=== PATIENT | female | born 1970 | race Caucasian/White ===

== ENCOUNTER 2020-02-07 13:13 | Outpatient (CLI) | payer OTHER, SELFPAY ==
--- NOTE | ~2020-02-07 | MMUS_ITS ---
EXAMINATION: MM screen RT diag LT w maira, US breast LT limited HISTORY: Left breast pain TECHNIQUE: Bilateral 3-D tomosynthesis images were performed and synthetic 2-D images were generated. CAD analysis was submitted and interpreted. High resolution targeted left breast ultrasound at area of complaint of left subareolar breast pain was performed. COMPARISON: 02/26/2015 diagnostic left mammogram and complete left breast ultrasound 02/19/2015 and 04/11/2012 bilateral digital screening mammogram examinations BREAST PARENCHYMAL COMPOSITION: There are scattered areas of fibroglandular density. FINDINGS: MAMMOGRAPHIC FINDINGS: Occasional bilateral benign calcifications. No suspicious mass or architectural distortion, malignant calcification, skin thickening or retraction or significant new or developing density of either [address] is evident. ULTRASOUND: There is a parallel circumscribed sonolucency measuring 5.5 x 4.0 x 6.5 mm, with through transmission and posterior enhancement, compatible with simple cyst in the subareolar area of the left breast. No suspicious mass or shadowing is evident. IMPRESSION: 1. No mammographic evidence of malignancy 2. Routine mammographic screening is recommended BI-RADS Category 2: Benign finding(s). Reviewed, dictated and finalized at location A. IMPRESSION: 1. No mammographic evidence of malignancy 2. Routine mammographic screening is recommended BI-RADS Category 2: Benign finding(s).
== END 2020-02-07 13:14 | disposition home or self-care (01) ==
PROVIDERS: PCP Family Medicine; Visit Provider Obstetrics & Gynecology
DX: N64.4 Mastodynia (principal)
CPT/HCPCS: 76642; 77063; 77065; 77067

== ENCOUNTER 2020-07-03 13:21 | Outpatient (CLI) | payer OTHER, SELFPAY ==
[2020-07-03 13:57] LABS: Basophils Absolute Auto 0.1 K/mm3 (0.0-0.1); Basophils Percent Auto 0.9 % (0.2-1.2); Eosinophils Absolute Auto 0.3 K/mm3 (0-0.3); Eosinophils Percent Auto 4.2 % (0-4.4); Hematocrit 37.9 % (37.0-47.0); Hemoglobin 12.9 g/dL (12.0-15.0); Immature Granulocyte Absolute 0.04 K/mm3 (0.00-0.031); Immature Granulocyte Percent A 0.5 % (0-0.5); Lymphocytes Absolute Auto 1.69 K/mm3 (0.9-3.2); Lymphocytes Percent Auto 22.9 % (18.3-44.2); Mean Corpuscular Hemoglobin 31.2 pg (26-34); Mean Corpuscular Volume 91.8 fl (80-100); Mean Platelet Volume 10.8 fl (7.4-10.4); Monocytes Absolute Auto 0.5 K/mm3 (0.1-0.6); Monocytes Percent Auto 6.4 % (2.6-8.5); Neutrophils Absolute Auto 4.8 K/mm3 (1.3-6.7); Neutrophils Percent Auto 65.1 % (45.5-73.1); Platelet Count Result 219 k/mm3 (150-375); Red Blood Count 4.13 M/mm3 (4.2-5.4); White Blood Count 7.4 K/mm3 (4.5-10.0)
[2020-07-03 14:04] LABS: Hemoglobin A1C 5.8 % (<5.7)
[2020-07-03 14:08] LABS: Alanine Aminotransferase 19 U/L (4-35); Albumin Level 4.4 g/dL (3.5-5.1); Alkaline Phosphatase 53 U/L (38-126); Anion Gap 10 mmol/L (8-16); Aspartate Amino Transferase 24 U/L (14-36); Bilirubin,Total 0.2 mg/dL (0.2-1.3); Blood Urea Nitrogen 14 mg/dL (7-17); Calcium 9.5 mg/dL (8.4-10.2); Carbon Dioxide 28 mmol/L (22-30); Chloride 101 mmol/L (98-107); Cholesterol 237 mg/dL (0-200); Estimated Glomerular Filt Rate > 60; Glucose 141 mg/dL (65-105); HDL Direct 48 mg/dL; Potassium 4.4 mmol/L (3.4-5.0); Sodium 139 mmol/L (137-145); Triglycerides 509 mg/dL (<150); Uric Acid 9.9 mg/dL (2.5-7.5)
[2020-07-03 14:19] LABS: LDL Cholesterol Direct 96 mg/dL
[2020-07-03 14:45] LABS: Creatinine Urine 90.1 mg/dL
[2020-07-03 14:50] LABS: MALB Creatinine Ratio 27.3 mg/g (0-30); Microalbumin Urine Random 24.6 mg/L (0-16.7)
[2020-07-03 15:21] LABS: Free T4 Free Thyroxine 0.84 ng/mL (0.78-2.19); Vitamin D 25 Hydroxy 61.4 ng/mL
== END 2020-07-03 13:22 | disposition home or self-care (01) ==
LOC: ANHLAB 13:23
PROVIDERS: PCP Family Medicine; Visit Provider Family Medicine
DX: Z00.00 Encounter for general adult medical examination without abnormal findings (principal); E78.2 Mixed hyperlipidemia; E11.42 Type 2 diabetes mellitus with diabetic polyneuropathy; R53.83 Other fatigue; I10 Essential (primary) hypertension; E03.9 Hypothyroidism, unspecified; Z13.0 Encounter for screening for diseases of the blood and blood-forming organs and certain disorders involving the immune mechanism; Z13.6 Encounter for screening for cardiovascular disorders; Z13.220 Encounter for screening for lipoid disorders; Z13.29 Encounter for screening for other suspected endocrine disorder; R80.9 Proteinuria, unspecified; E55.9 Vitamin D deficiency, unspecified
CPT/HCPCS: 36415; 80053; 80061; 82043; 82306; 83036; 84439; 84443; 84480; 84481; 84550; 85025

== ENCOUNTER 2020-10-21 12:05 | Outpatient (CLI) | payer OTHER, SELFPAY ==
[2020-10-21 13:03] LABS: Alanine Aminotransferase 23 U/L (4-35); Albumin Level 4.2 g/dL (3.5-5.1); Alkaline Phosphatase 54 U/L (38-126); Anion Gap 7 mmol/L (8-16); Aspartate Amino Transferase 28 U/L (14-36); Bilirubin,Total 0.5 mg/dL (0.2-1.3); Blood Urea Nitrogen 8 mg/dL (7-17); Calcium 9.1 mg/dL (8.4-10.2); Carbon Dioxide 25 mmol/L (22-30); Chloride 108 mmol/L (98-107); Estimated Glomerular Filt Rate > 60; Glucose 118 mg/dL (65-105); Hemoglobin A1C 5.8 % (<5.7); Sodium 140 mmol/L (137-145)
== END 2020-10-21 12:06 | disposition home or self-care (01) ==
LOC: ANHLAB 12:14
PROVIDERS: PCP Family Medicine
DX: E11.65 Type 2 diabetes mellitus with hyperglycemia (principal)
CPT/HCPCS: 36415; 80053; 83036

== ENCOUNTER 2021-02-25 18:39 | Observation (INO) | payer OTHER, SELFPAY ==
--- NOTE | ~2021-02-25 | CT_ITS ---
EXAMINATION: CTA chest PE protocol DATE: 02/25/2021 21:21 INDICATION: Tachypnea, fever, tachycardia and elevated d-dimer. TECHNIQUE: Computed tomography (CT) pulmonary angiogram of the chest was performed with 100 mL Omnipa que-350 intravenous contrast. Additional 3D reconstructions utilizing coronal maximum intensity proje ction (MIP) were performed. Automated exposure control and iterative reconstruction technique were em ployed. The dose-length product was 628.84 mGy-cm. COMPARISON: None FINDINGS: Excellent contrast opacification of the pulmonary arteries. There is mild streak artifact from dense contrast in the superior vena cava and right atrium. Minimal scattered respiratory motion artifact wh ich does not significantly limit evaluation. No pulmonary embolism. Mild atelectasis in the right mid dle lobe and lingula. There are few bilateral small calcified pulmonary nodules which along couple sp lenic calcifications are consistent with old granulomatous disease. 3 additional <4 mm noncalcified n odules in the right upper and bilateral lower lobes. No pneumonia, pulmonary edema or pleural effusio n. Heart size is normal. No pericardial effusion. Small sliding-type hiatal hernia. There is wall thi ckening the distal esophagus which could be related to reflux esophagitis. Thoracic aorta is normal i n caliber with no dissection. Likely benign subcentimeter right thyroid nodule. No pathologically enl arged thoracic lymphadenopathy. Diffuse hepatic steatosis. Partially visualized plate and screw fixat ion for anterior spinal fusion at C6-C7. IMPRESSION: 1. No pulmonary embolism or other acute cardiopulmonary disease. 2. A few <4 mm noncalcified pulmonary nodules. If the patient is low risk for lung cancer, no follow- up is needed. If the patient is high risk (i.e., history of smoking or asbestos or significant radiat ion exposure), optional follow-up chest CT could be considered at 12 months. 3. Small sliding-type hiatal hernia with wall thickening the distal esophagus suggesting possibility of reflux esophagitis. Reviewed, dictated and finalized at location A. IMPRESSION: 1. No pulmonary embolism or other acute cardiopulmonary disease. 2. A few <4 mm noncalcified pulmonary nodules. If the patient is low risk for l tony cancer, no follow-up is needed. If the patient is high risk (i.e., history of smoking or asbestos or significant radiation exposure), optional follow-up c hest CT could be considered at 12 months. 3. Small sliding-type hiatal hernia with wall thickening the distal esophagus s uggesting possibility of reflux esophagitis.
--- NOTE | ~2021-02-25 | CT_ITS ---
EXAMINATION: CT abdomen pelvis wo con DATE: 02/26/2021 13:18 INDICATION: Generalized abdominal pain. Constipation. TECHNIQUE: Computed tomography (CT) of the abdomen and pelvis was performed without intravenous contr ast. Automated exposure control and iterative reconstruction technique were employed. The dose-length product was 1272.11 mGy-cm. COMPARISON: None. FINDINGS: The visualized portions of the lung bases demonstrate mild atelectasis. A calcified right l tony nodule is consistent with old granulomatous disease. No pleural effusion. The heart size is josie l. No pericardial effusion. There is diffuse hepatic steatosis. There are changes of cholecystectomy. Calcifications in the spleen are consistent with old granulomatous disease, consistent with decrease d kidney function. The pancreas and adrenal glands are normal. There are persistent contrast nephrogr ams. There are no dilated loops of bowel. There are changes of appendectomy. There is a small sliding hiatal hernia. There is mild aortocaval and left para-aortic lymphadenopathy. There is a supraumbili daina ventral hernia containing fat. There is an electrode in left S3 neural foramen. There are changes of anterior and posterior fusion procedures from L4 to S1. There is mild lumbar spondylosis. IMPRESSION: 1. Supraumbilical ventral hernia containing fat. 2. Small sliding hiatal hernia. 3. Mild retroperitoneal lymphadenopathy, likely reactive. Reviewed, dictated and finalized at location A.
[2021-02-25 19:00] VITALS: BP 132/71; PULSE 106; RESP 20; TEMP 39.8; O2SAT 100
[2021-02-25] MEDS: ONDANSETRON INJ 4 MG/2 ML VIAL IV PUSH (19:30)
[2021-02-25] MEDS: KETOROLAC 30 MG/ML VIAL (*BKC) IV PUSH (19:30)
[2021-02-25] MEDS: SODIUM CHLORIDE 0.9% IV 1,000 ML 999 ML IV CONT ×2 (19:35→21:25)
[2021-02-25 19:40] LABS: Basophils Absolute Auto 0.03 K/mm3 (0.00-0.10); Basophils Percent Auto 0.3 % (0.0-1.0); Eosinophils Absolute Auto 0.03 K/mm3 (0.02-0.50); Eosinophils Percent Auto 0.3 % (1.0-6.0); Hematocrit 34.5 % (35.0-49.0); Hemoglobin 12.2 g/dL (12.0-15.0); Immature Granulocyte Absolute 0.07 K/mm3 (0.00-0.00); Immature Granulocyte Percent A 0.7 % (0.0-0.0); Lymphocytes Absolute Auto 0.76 K/mm3 (1.10-4.50); Lymphocytes Percent Auto 7.1 % (18.0-42.0); Mean Corpuscular HGB Conc 35.4 g/dL (32.0-36.0); Mean Corpuscular Hemoglobin 32.3 pg (27.0-31.0); Mean Corpuscular Volume 91.3 fL (78.0-102.0); Mean Platelet Volume 11.1 fl (9.2-11.8); Monocytes Absolute Auto 1.01 K/mm3 (0.10-0.90); Monocytes Percent Auto 9.5 % (2.0-11.0); Neutrophils Absolute Auto 8.8 K/mm3 (1.7-7.2); Neutrophils Percent Auto 82.1 % (50.0-70.0); Platelet Count Result 191 K/mm3 (150-420); Red Blood Count 3.78 M/mm3 (4.20-5.40); Red Cell Distribution Width 11.8 % (11.6-14.4); White Blood Count 10.7 K/mm3 (4.8-10.8)
--- NOTE | 2021-02-25 19:52 | ED.GENADULT ---
HPI - General Adult General Chief complaint: Headache Stated complaint: headache, Hot/Cold,body aches,nausea,constipation Source: patient Mode of arrival: ambulatory Limitations: no limitations History of Present Illness HPI narrative: Niles is a 50F with a PMH of bipolar disorder, diabetes, OA, migraines seasonal allergies and multiple surgeries presented to the ED with multiple sympotms. 5 days ago she started having myalgias in her legs and low back. Next she became constipated. Later she started having subjective fevers, chills and a headache. Her daughter took her temp before coming and it was 101 so she came to the ED. She denies any CP, SOB or lower extremity swelling. Related Data Home Medications Medication Instructions Recorded Confirmed dulaglutide 1.5 mg/0.5 mL 1.5 mg SUB-Q WEEKLY 01/30/20 02/25/21 subcutaneous pen injector estradiol 0.87 gram/actuation 1 pump TRANSDERM DAILY 01/30/20 02/25/21 (0.06%) transdermal gel pump fluticasone propionate 50 2 spray NASAL DAILY 01/30/20 02/25/21 mcg/actuation nasal spray,suspension ibuprofen 800 mg tablet 800 mg PO Q6H 01/30/20 02/25/21 Allergies Allergy/AdvReac Type Severity Reaction Status Date / Time prochlorperazine Allergy Intermediate Other Verified 01/30/20 11:18 Review of Systems Constitutional: Constitutional: Reports as per HPI Eyes: Eyes: Reports no additional eye complaints ENT: Reports system reviewed and no additional complaints, except as documented Cardiovascular: Cardiovascular: Reports no additional cardiovascular complaints Respiratory: Respiratory: Reports no additional respiratory complaints Gastrointestinal: Gastrointestinal: Reports constipation, Denies diarrhea, Reports nausea and Denies vomiting Genitourinary: Genitourinary: Reports no additional female genitourinary complaints Musculoskeletal: Musculoskeletal: Reports no additional musculoskeletal complaints Integumentary/Breasts: Skin/Breast: Reports system reviewed and no additional complaints, except as docu Neurologic: Reports system reviewed and no additional complaints, except as documented Psychiatric: Psychiatric: Reports no additional psychiatric complaints Endocrine: Endocrine: Reports no additional endocrine complaints Hematologic/Lymphatic: Hematologic/Lymphatic: Reports no additional hematologic/lymphatic complaints Allergic/Immunologic: Allergic/Immunologic: Reports no additional allergic/immunologic complaints [facility] Family History Family History Other Family history of malignant neoplasm Hypertension Social History Social History Smoking status: Never smoker Exam Const: General: alert; No confusion Orientation/consciousness: patient oriented x3 Limitations: No altered mental status Other: Looks very fatigued HENMT: Head: normal to inspection Other: atraumatic Eyes: Pupils: Equal, round and reactive pupils present Neck: Neck: normal visual inspection Chest: Chest palpation & inspection: normal inspection of the chest Resp: Effort & Inspection: labored, tachypneic and uses accessory muscles Auscultation: clear to auscultation bilaterally Cardio: Rate: tachycardic Rhythm: regular rhythm Heart sounds: no murmurs GI: Inspection: non-distended GI Palp: Yes Soft to palpation, No Tenderness to palpation present (GI) and No Guarding due to palpation present (GI) Skin: General skin exam: normal color Rashes: no rashes Neuro: General: patient oriented x3 and moves all extremities Extrem: General: normal to inspection Psych: Appearance: grossly normal Mental Status: mental status grossly normal Thought content: Yes Normal thought content present Course Course Emergency Course: Given toradol, zofran and fluids for the headache, nausea and aches. Labs showed mild hyponatremia, TANIKA, and a very elevated CRP and
[2021-02-25 19:55] LABS: Alanine Aminotransferase 28 U/L (14-59); Albumin Level 2.9 g/dL (3.4-5.0); Alkaline Phosphatase 61 U/L (46-116); Anion Gap 11 mmol/L (8-16); Aspartate Amino Transferase 18 U/L (15-37); Bilirubin,Total 0.5 mg/dL (0.00-1.00); Blood Urea Nitrogen 15 mg/dL (7-18); Calcium 8.9 mg/dL (8.5-10.1); Carbon Dioxide 25 mmol/L (21-32); Chloride 95 mmol/L (98-108); Creatine Kinase 33 U/L (26-192); Estimated Glomerular Filt Rate 33; Glucose 125 mg/dL (70-99); Osmolality Calculated 273 mOsm/kg (285-295); Potassium 3.9 mmol/L (3.5-5.1); Sodium 131 mmol/L (136-145); Total Protein 6.9 g/dL (6.4-8.2)
[2021-02-25 19:56] LABS: CRP > 25.0 mg/dL (0.0-0.9)
[2021-02-25 20:04] LABS: Monoscreen Negative (Negative); Negative Monotest Control Negative (Negative); Positive Monotest Control Positive (Positive)
[2021-02-25 20:23] LABS: Influenza Control Valid (Valid)
[2021-02-25 20:28] LABS: SARS-CoV-2 RNA PCR Negative (Negative)
[2021-02-25 21:00] VITALS: TEMP 39
[2021-02-25 21:03] LABS: Appearance Urine Sl Cloudy (Clear); Bilirubin Urine Negative (Negative); Blood Urine 1+ (Negative); Glucose Urine UA Negative (Negative); Ketones Urine Negative (Negative); Leukocyte Esterase Ur 2+ (Negative); Nitrate Urine Negative (Negative); Protein Urine 2+ (Negative); Specific Grav Ur 1.015 (1.010-1.020); Urobilinogen Urine 0.2 mg/dL (0.2-1.0)
[2021-02-25 21:10] LABS: Add Urine Microscopic? YES; Bacteria Urine 1+ /hpf; Color Urine Yellow (Yellow); Squamous Epithelial Cell Urine Few /hpf (Few); WBC Urine 21-30 /hpf (0-3)
[2021-02-25 21:14] VITALS: BP 98/53; PULSE 91; RESP 20; TEMP 39; O2SAT 97
[2021-02-25 21:57] VITALS: PULSE 72; O2SAT 97
[2021-02-25 22:19] VITALS: BP 91/61; PULSE 97; RESP 20; TEMP 39; O2SAT 97
[2021-02-25 23:12] VITALS: BMI 37.0
--- NOTE | 2021-02-25 23:24 | PC.NURSE ---
Patient arrived to floor from ER at 2230. Patient A/O x4. Ambulates independently. Denies any c/o pain at this time. IV present to RAC. Telemetry on and NSR.
[2021-02-26] VITALS (17 sets, daily range): BP systolic 92–148; BP diastolic 55–89; PULSE 84–113; RESP 16–22; TEMP 36.6–39.6; O2SAT 97–99
--- NOTE | 2021-02-26 00:17 | PC.NURSE ---
Dr. Rojas notified of pt's request for a sleeping pill to help her rest; Dr. Rojas was notifed of pt's request and a new order was received and noted.
[2021-02-26] MEDS: ZOLPIDEM TARTRATE (*CRX) 5 MG TABLET PO (00:38)
--- NOTE | 2021-02-26 01:01 | PC.NURSE ---
Dr. Rojas called and said he wanted pt's blood pressure checked now and again in 30 minutes and to report results to him.
--- NOTE | 2021-02-26 01:10 | PC.NURSE ---
Pt's blood pressure was checked and it was 106/62; Results reported to Dr. Rojas and he gave orders to check pt's blood pressure hourly and to call him if patient's blood pressure is below 90/60.
[2021-02-26] MEDS: SODIUM CHLORIDE 0.9% IV 1,000 ML 150 ML IV CONT ×2 (01:21→13:54)
--- NOTE | 2021-02-26 01:40 | PC.NURSE ---
No c/o pain voiced from patient. Resting at this time. Monitoring VS-BP per MD new orders. Fluids started, NS at 150ml/hr.
--- NOTE | 2021-02-26 02:01 | PC.NURSE ---
Patients BP checked, 148/89. Afebrile-98.1.
[2021-02-26] MEDS: ACETAMINOPHEN 325 MG TABLET 650 MG PO ×4 (02:55→21:01)
--- NOTE | 2021-02-26 03:01 | PC.NURSE ---
Patient shivering BP taken- 124/74 HR 113 T-103.2. PRN tylenol given. Monitoring. coal hauler notified. Continues with IV fluids.
[2021-02-26 05:32] LABS: Basophils Absolute Auto 0.03 K/mm3 (0.00-0.10); Basophils Percent Auto 0.4 % (0.0-1.0); Eosinophils Absolute Auto 0.09 K/mm3 (0.02-0.50); Eosinophils Percent Auto 1.1 % (1.0-6.0); Hematocrit 29.4 % (35.0-49.0); Hemoglobin 10.3 g/dL (12.0-15.0); Immature Granulocyte Absolute 0.05 K/mm3 (0.00-0.00); Immature Granulocyte Percent A 0.6 % (0.0-0.0); Lymphocytes Absolute Auto 0.56 K/mm3 (1.10-4.50); Lymphocytes Percent Auto 6.6 % (18.0-42.0); Mean Corpuscular Volume 91.3 fL (78.0-102.0); Monocytes Absolute Auto 0.92 K/mm3 (0.10-0.90); Monocytes Percent Auto 10.9 % (2.0-11.0); Neutrophils Absolute Auto 6.8 K/mm3 (1.7-7.2); Neutrophils Percent Auto 80.4 % (50.0-70.0); Platelet Count Result 152 K/mm3 (150-420); Red Blood Count 3.22 M/mm3 (4.20-5.40); Red Cell Distribution Width 11.9 % (11.6-14.4); White Blood Count 8.4 K/mm3 (4.8-10.8)
[2021-02-26 05:46] LABS: Alanine Aminotransferase 27 U/L (14-59); Albumin Level 2.3 g/dL (3.4-5.0); Alkaline Phosphatase 62 U/L (46-116); Anion Gap 11 mmol/L (8-16); Aspartate Amino Transferase 25 U/L (15-37); Bilirubin,Total 0.4 mg/dL (0.00-1.00); Blood Urea Nitrogen 19 mg/dL (7-18); Calcium 7.6 mg/dL (8.5-10.1); Carbon Dioxide 24 mmol/L (21-32); Chloride 98 mmol/L (98-108); Estimated CRCL calculation 41 ml/min; Estimated Glomerular Filt Rate 29; Glucose 102 mg/dL (70-99); Osmolality Calculated 278 mOsm/kg (285-295); Potassium 3.4 mmol/L (3.5-5.1); Sodium 133 mmol/L (136-145); Total Protein 5.7 g/dL (6.4-8.2)
[2021-02-26] MEDS: ENOXAPARIN 40 MG/0.4 ML SYRINGE SUB-Q (08:00)
--- NOTE | 2021-02-26 10:20 | PM.IMHP ---
H&P: HPI History of Present Illness Date/Time: 02/26/21 10:20 Pt is being placed in observation for Body aches with Fever and UTI. She will be getting IV Ab. Niles Croft is a 50 year old female who comes in with body aches, fever, chills. Pt states that she went for a long walk 5 days ago that lasted about 2 hours. After this she started feeling her body aching. Pt states she does not walk for this long. She states she has not had a BM since 5 days ago as well and her abdomen is tender only to touch. She also stated that she would be shaking very bad at times. She admits to being a bit nauseated without vomiting. Negative for COVID, Flu, [place]. When I started asking Pt what brought her to the hospital she stated we came because of the above items. I asked her what she meant by we and she stated her and her imaginary friend who is a non-binary elephant named Branden. I began to ask her about psych issues and she stated she did not want to tell me because I would write them down. She denied multiple personalities. She did admit to being Bipolar and has not taken any medication for many years. Stating she was taken off of those medications. Chief Complaint: Body Aches, GUAN, Fever, Chills Review of Systems Review of Systems: All systems reviewed & are unremarkable except as noted in HPI and below PMFSH Past Medical History Medical History (Updated 02/26/21 @ 14:30 by DANIELLE Perez) Bipolar 1 disorder Diabetes Migraine Surgical History Surgical History (Updated 02/26/21 @ 12:26 by DANIELLE Perez) H/O: hysterectomy Family History Family History Other Family history of malignant neoplasm Hypertension Social History Social History Smoking status: Former smoker Tobacco type: cigarettes Second hand tobacco smoke exposure: No Alcohol intake: current Drinks per week: 1 Substance use: current Substance use type: prescription drug and other Other substance usage details: medical marijuana Gender identity (if verbalized by the patient): Female Spiritual care concerns: No Meds Home Medications and Allergies Home Medications Medication Instructions Recorded Confirmed Type dulaglutide 1.5 mg/0.5 mL 1.5 mg SUB-Q WEEKLY 01/30/20 02/25/21 History subcutaneous pen injector estradiol 0.87 gram/actuation 1 pump TRANSDERM DAILY 01/30/20 02/25/21 History (0.06%) transdermal gel pump fluticasone propionate 50 2 spray NASAL DAILY 01/30/20 02/25/21 History mcg/actuation nasal spray,suspension ibuprofen 800 mg tablet 800 mg PO Q6H 01/30/20 02/25/21 History Allergies Allergy/AdvReac Type Severity Reaction Status Date / Time prochlorperazine Allergy Intermediate Other Verified 01/30/20 11:18 Vital Signs Vital Signs - 24 hr 02/25/21 19:00 02/25/21 21:00 02/25/21 21:14 Temperature 103.7 F H 102.2 F H 102.2 F H Pulse Rate 106 H 91 Respiratory Rate 20 20 Blood Pressure 132/71 98/53 L Pulse Oximetry 100 97 02/25/21 21:57 02/25/21 22:19 02/26/21 00:00 Temperature 102.2 F H 97.8 F Pulse Rate 72 97 91 Respiratory Rate 20 18 Blood Pressure 91/61 L 113/58 L Pulse Oximetry 97 97 97 02/26/21 01:18 02/26/21 02:00 02/26/21 02:55 Temperature 98.1 F 103.2 F H Pulse Rate 100 Respiratory Rate Blood Pressure 106/62 148/89 H Pulse Oximetry 97 02/26/21 03:02 02/26/21 04:00 02/26/21 04:55 Temperature 103.2 F H 103.0 F H 103.0 F H Pulse Rate 113 H 105 H Respiratory Rate 22 H Blood Pressure 124/74 109/72 Pulse Oximetry 02/26/21 05:29 02/26/21 06:45 02/26/21 07:33 Temperature 101.0 F H 98.2 F 98.0 F Pulse Rate 95 105 H 84 Respiratory Rate 18 Blood Pressure 102/66 93/58 L 92/62 L Pulse Oximetry 99 Exam Const: General: cooperative, healthy appearing, comfortable, no acute distress, alert, awake and Physically active N
--- NOTE | 2021-02-26 14:49 | PC.NURSE ---
Patient continues to have fluctuations with low grade temps and c/o migraines. 18g IV to RUE infiltrated and replaced w/20g in Rt. AC. Patient does c/o of chills when temp increases.
[2021-02-26] MEDS: SUMAtriptan SUCCINATE 25 MG TABLET 50 MG PO (16:12)
--- NOTE | 2021-02-26 18:40 | PC.NURSE ---
CONTINUOUS IVF DISCONTINUED. IV SITE WNL, FLUSHED AND SECURE.
--- NOTE | 2021-02-26 23:18 | PC.NURSE ---
PT called this nurse to room approx 2100 for symptoms of fever. Temp 100.8 axillary, PRN tylenol 650mg given. UPdate 2299: Pt called this nurse to room for c/o fever, chills, diaphoretic. Temp decreased to 100.4 axillary, pt continues c/o fever like symptoms. Air temp in room turned down, cold wash clothes provided, pt refused. Will continue to monitor for elevated temp.
[2021-02-27] VITALS: BP 100/66; PULSE 91; RESP 20; TEMP 37.6; O2SAT 99
[2021-02-27 01:02] VITALS: TEMP 37
[2021-02-27] MEDS: ACETAMINOPHEN 325 MG TABLET 650 MG PO ×2 (01:02→08:09)
[2021-02-27 02:02] VITALS: TEMP 36.9
[2021-02-27] MEDS: HYDROcodone/acetaminophen (*CRX) 5-325 MG TABLET 1 TAB PO (04:32)
[2021-02-27 06:20] VITALS: TEMP 37.5
--- NOTE | 2021-02-27 06:34 | PC.NURSE ---
Dr. Reyes notified of pt's c/o a migrane headache and her request for Imitrex. New orders received and noted.
[2021-02-27] MEDS: SUMAtriptan SUCCINATE 25 MG TABLET 50 MG PO (06:43)
[2021-02-27 08:00] VITALS: BP 123/61; PULSE 89; RESP 18; TEMP 37.4; O2SAT 100
[2021-02-27 08:09] VITALS: TEMP 37.4
[2021-02-27] MEDS: ENOXAPARIN 40 MG/0.4 ML SYRINGE SUB-Q (08:12)
[2021-02-27] MEDS: FLUTICASONE PROPIONATE 0.05% NA SPR 16 GM BTL (*BKC) 2 SPRAY NASAL (08:15)
--- NOTE | 2021-02-27 09:38 | PC.NURSE ---
Patient up ad fela, awake and alert in room. Low grade fever (99.3 temporal) cont. C/O chills and migraine w/no noticeable S/S noted at this time.
[2021-02-27 10:44] LABS: Hematocrit 29.2 % (35.0-49.0); Hemoglobin 10.2 g/dL (12.0-15.0); Mean Corpuscular HGB Conc 34.9 g/dL (32.0-36.0); Mean Corpuscular Volume 91.5 fL (78.0-102.0); Mean Platelet Volume 11.2 fl (9.2-11.8); Platelet Count Result 167 K/mm3 (150-420); Red Blood Count 3.19 M/mm3 (4.20-5.40); White Blood Count 6.2 K/mm3 (4.8-10.8)
[2021-02-27 10:52] LABS: Anion Gap 11 mmol/L (8-16); Blood Urea Nitrogen 12 mg/dL (7-18); Calcium 8.5 mg/dL (8.5-10.1); Carbon Dioxide 24 mmol/L (21-32); Chloride 101 mmol/L (98-108); Estimated CRCL calculation 52 ml/min; Estimated Glomerular Filt Rate 38; Glucose 173 mg/dL (70-99); Osmolality Calculated 285 mOsm/kg (285-295); Potassium 3.8 mmol/L (3.5-5.1); Sodium 136 mmol/L (136-145)
--- NOTE | 2021-02-27 11:52 | PM.DS ---
DS: Admitting Diagnosis Admitting Diagnosis Admitting Diagnosis: Sepsis, UTI <Fernando CarltonISAK JuarezN-C - Last Filed: 02/27/21 12:22> DS: Discharge Diagnosis Discharge Diagnosis (1) Sepsis: Code(s): A41.9 - Sepsis, unspecified organism <Fernando Ware Fransisco F[employer]ER BR[employer] WORKER-C - Last Filed: 02/27/21 12:22> Status: Acute <Fernando Ware DERICK Moody-C - Last Filed: 02/27/21 12:22> Assessment and Plan: WBC 8.4, RR 22 when Pt was in ER now WNL and on RA, Pt was tachycardic in the ER at 100-110s now 90s and regular, BP did become soft in the 90s systolic, last BP 111 systolic, Temp in the ER 103`F given Tylenol and now WNL, No lactic acid, Urine looks positive for UTI which is likely the source and given Rocephin, Pt given 2 L NS in ER with 150/hour thereafter, blood and urine Cx pending 02/27/2021 WBC 6.2, continues on RA, BP improved 123/61, low grade temp 99.5`F, renal function improving, will order PO Ab on DC for UTI <Fernando CarltonSirisha Moody APN-C - Last Filed: 02/27/21 12:22> (2) UTI (urinary tract infection): Code(s): N39.0 - Urinary tract infection, site not specified <Fernando CarltonISAK JuarezN-C - Last Filed: 02/27/21 12:22> Status: Acute <Fernando CarltonISAK JuarezN-C - Last Filed: 02/27/21 12:22> Assessment and Plan: Culture Pending, Rocephin started, IVF NS 100/h, taking PO fluids well 02/27/2021 will DC with Bactrim DS. Urine Cx pending <Fernando BiankaSirisha Moody APN-C - Last Filed: 02/27/21 12:22> (3) Acute renal injury: Code(s): N17.9 - Acute kidney failure, unspecified <Fernando BiankaISAK JuarezN-C - Last Filed: 02/27/21 12:22> Status: Acute <Fernando Moody [employer] WORKER-C - Last Filed: 02/27/21 12:22> Assessment and Plan: Pt given 2 L NS bolus in ER with 150/h on the floor, monitoring renal function, BUN 19, Cr, 1.83, eCrCl 41, eGFR 29 02/27/2021 BUN 12, Cr 1.45, eCrCl 52, eGFR 38, Pt encouraged to drink plenty of water. <Fernando Moody FULLER BRUSH WORKERAnnikaRafael - Last Filed: 02/27/21 12:22> (4) Abdominal tenderness, generalized: Code(s): R10.817 - Generalized abdominal tenderness <Fernando MoodyDERICK-C - Last Filed: 02/27/21 12:22> Status: Acute <ISAK PerezNAnnikaC - Last Filed: 02/27/21 12:22> Assessment and Plan: Generalized tenderness, Pt states no BM in 5 days, will CT abdomen, Pt has Tylenol, [place], Morphine ordered per pain level 02/27/2021 No complaints of abdominal pain today <Fernando Moody FULLER BRUSH WORKERAnnikaC - Last Filed: 02/27/21 12:22> (5) Elevated d-dimer: Code(s): R79.89 - Other specified abnormal findings of blood chemistry <Fernando Moody FULLER BRUSH WORKERAnnikaC - Last Filed: 02/27/21 12:22> Status: Acute <Fernando Moody FULLER BRUSH WORKERAnnikaC - Last Filed: 02/27/21 12:22> Assessment and Plan: CTA negative for PE, reported to have a few <4mm nodules and may need f/u scan, D-Dimer was 4.4 <Fernando Moody FULLER BRUSH WORKERAnnikaC - Last Filed: 02/27/21 12:22> (6) Diabetes: Code(s): E11.9 - Type 2 diabetes mellitus without complications <Fernando MoodyRACHEALC - Last Filed: 02/27/21 12:22> Status: Acute <Fernando MoodyDERICKAnnikaC - Last Filed: 02/27/21 12:22> Assessment and Plan: Pt will have her Trulicity brought in from home, ordered diabetic diet however Pt states she eats a regular diet, here A1C from Oct 2020 was 5.8 02/27/2021 Pt to be DC'ed on her usual regimen <DANIELLE Perez - Last Filed: 02/27/21 12:22> (7) Bipolar 1 disorder: Code(s): F31.9 - Bipolar disorder, unspecified <DANIELLE Perez - Last Filed: 02/27/21 12:22> Status: Acute <DANIELLE Perez - Last Filed: 02/27/21 12:22> Assessment and Plan: Monitor Pt for stability / polarity, Pt does not currently take anything, she does have an imaginary friend who is a non-binary elephant named Branden 02/27/2021 Pt to f/u with PCP <DANIELLE Perez - Last Filed: 02/27/21 12:22> (8) H/O: hysterectomy: Code(s):
--- NOTE | 2021-02-27 13:05 | PC.NURSE ---
Patient discharged home with all personal belongings packed by patient and taken with at discharge. Discharge instructions given and patient acknowledged understanding of instructions. IV access discontinued and removed from Rt. AC prior to discharge. Patient refused WC and walked to main entrance escorted by staff and left in personal vehicle per self driving.
--- NOTE | 2021-03-02 13:54 | PC.NURSE ---
Pt states she received and understood her discharge instructions. Pt upset that Dr. Reyes wouldn't talk to her, boring machine set up operator her any results, boring machine set up operator her any tylenol for her fever and wouldn't change her diet order.
== END 2021-02-27 13:05 | disposition home or self-care (01) ==
LOC: CHSED 18:41 → CHS2ND 22:02
PROVIDERS: Nurse Practitioner Family; Admitting Provider Family Medicine; Emergency Provider Family Medicine; PCP Family Medicine; Visit Provider Family Medicine
DX: A41.9 Sepsis, unspecified organism (principal); N39.0 Urinary tract infection, site not specified; N17.9 Acute kidney failure, unspecified; E11.9 Type 2 diabetes mellitus without complications; M19.90 Unspecified osteoarthritis, unspecified site; R79.89 Other specified abnormal findings of blood chemistry; G43.909 Migraine, unspecified, not intractable, without status migrainosus; Z20.822 Contact with and (suspected) exposure to COVID-19; F31.9 Bipolar disorder, unspecified; Z87.891 Personal history of nicotine dependence; Z90.710 Acquired absence of both cervix and uterus
CPT/HCPCS: 36415; 71275; 74176; 80048; 80053; 81001; 82550; 85025; 85027; 85380; 86140; 86308; 87040; 87077; 87086; 87088; 87186; 87804; 96361; 96365; 96372; 96375; 99285; A9270; C9803; G0378; J0696; J1650; J1885; J2405; J7030; Q9967; U0003; U0005

== ENCOUNTER 2021-11-05 17:19 | Emergency (ER) | payer OTHER, SELFPAY ==
[2021-11-05 17:30] VITALS: BP 112/75; PULSE 86; RESP 20; TEMP 37.2; O2SAT 98
--- NOTE | 2021-11-05 17:56 | ED.EXTPRO ---
HPI - Extremity Problem General Chief complaint: Extremity Problem,Nontraumatic Stated complaint: hand pain Source: patient Mode of arrival: ambulatory Limitations: no limitations History of Present Illness HPI Narrative: this is a 51-year-old female with history of chronic back neck pain, currently here in the ER with wrist pain with no known injuries does have tenderness with movement with no warmth with a strong brisk radial pulse on the right, she does have tenderness with some flexion of her her right wrist. No fever chills and no known injuries. Complaint: extremity pain Onset (ago): week(s) Pain Consistency: intermittent Location: right Severity scale (1-10): 8 Quality: aching Radiation: distal Relieving factors: immobilization Exacerbating factors: range of motion Related Data Home Medications Medication Instructions Recorded Confirmed dulaglutide 1.5 mg/0.5 mL 1.5 mg SUB-Q WEEKLY 01/30/20 11/05/21 subcutaneous pen injector estradiol 0.87 gram/actuation 1 pump TRANSDERM DAILY 01/30/20 11/05/21 (0.06%) transdermal gel pump fluticasone propionate 50 2 spray NASAL DAILY 01/30/20 11/05/21 mcg/actuation nasal spray,suspension ibuprofen 800 mg tablet 800 mg PO Q6H 01/30/20 11/05/21 Allergies Allergy/AdvReac Type Severity Reaction Status Date / Time prochlorperazine Allergy Intermediate Other Verified 01/30/20 11:18 Review of Systems Review of Systems: All systems reviewed & are unremarkable except as noted in HPI and below PMFSH Past Medical History Medical History Bipolar 1 disorder Diabetes Migraine Surgical History Surgical History H/O: hysterectomy Family History Family History Other Family history of malignant neoplasm Hypertension Social History Social History Smoking status: Former smoker Tobacco type: cigarettes Second hand tobacco smoke exposure: No Alcohol intake: current Drinks per week: 1 Substance use: current Substance use type: prescription drug and other Other substance usage details: medical marijuana Gender identity (if verbalized by the patient): Female Spiritual care concerns: No Exam Const: General: no acute distress Orientation/consciousness: patient oriented x3 HENMT: Head: normal to inspection Eyes: Conjunctivae: conjunctivae normal Pupils: Equal, round and reactive pupils present Neck: Neck: normal visual inspection, no lymphadenopathy and no meningeal signs Chest: Chest palpation & inspection: normal inspection of the chest Resp: Effort & Inspection: normal respiratory effort Cardio: Rate: regular rate Rhythm: regular rhythm GI: GI Palp: Yes Soft to palpation : General: Yes no CVA tenderness Urinary Catheter: Urinary Catheter: patent and draining Skin: General skin exam: normal color Rashes: no rashes Neuro: General: patient oriented x3, moves all extremities, no meningeal signs and no focal motor deficits Extrem: Other: Patient with some right wrist pain with a positive tineal test and positive Phalen test Psych: Mental Status: mental status grossly normal Affect: normal affect Course Course Emergency Course: patient received IM injection of Depo-Medrol 80mg, advised that she would need to wear wrist splint and possibly have nerve conduction study performed as well as an MRI of her right wrist. Given the fact that she is prescribed p.o. steroids advised to take only Tylenol as needed along with her steroid regimen. Critical Care Time Critical Care Time Critical Care Time: No Discharge Plan Discharge Clinical Impression: Acute carpal tunnel syndrome of right wrist Patient Disposition: Home, Self-Care Condition: Stable Instructions: Antibiotic Form, Paresthesia (ED
[2021-11-05] MEDS: methylPREDNISolone ACETATE 40 MG/ML VIAL 80 MG IM (18:13)
[2021-11-05 18:22] VITALS: BP 112/75; PULSE 87; RESP 20; TEMP 37.1; O2SAT 98
== END 2021-11-05 18:29 | disposition home or self-care (01) ==
PROVIDERS: Emergency Provider Emergency Medicine; PCP Family Medicine
DX: G56.01 Carpal tunnel syndrome, right upper limb (principal)
CPT/HCPCS: 96372; 99283; J1030

== ENCOUNTER 2021-11-19 14:14 | Outpatient (CLI) | payer OTHER, SELFPAY ==
[2021-11-19 14:42] LABS: Creatinine Urine 72.26 mg/dL (40-278); MALB Creatinine Ratio 27.2 mg/g (0-30); Microalbumin Urine Random 19.7 mg/L
[2021-11-19 14:44] LABS: Hemoglobin A1C 6.2 % (<5.7)
== END 2021-11-19 14:15 | disposition home or self-care (01) ==
LOC: CHSLAB 14:19
DX: E11.65 Type 2 diabetes mellitus with hyperglycemia (principal)
CPT/HCPCS: 36415; 82043; 83036

== ENCOUNTER 2021-12-04 14:18 | Outpatient (CLI) | payer OTHER, SELFPAY ==
--- NOTE | ~2021-12-04 | XR_ITS ---
XR hand LT 2V DATE: 12/04/2021 14:41 INDICATION: Second digit pain, proximal interphalangeal joint TECHNIQUE: AP and lateral views COMPARISON: None FINDINGS: There is mild osteoarthritic change involving some interphalangeal joints. No fracture, dislocation, periosteal reaction or bone destruction, erosive change or chondral calcino sis. IMPRESSION: Mild osteoarthritis Reviewed, dictated and finalized at location A. IMPRESSION: Mild osteoarthritis
== END 2021-12-04 14:19 | disposition home or self-care (01) ==
LOC: CHSIMG 14:21
PROVIDERS: PCP Nurse Practitioner Family
DX: M79.642 Pain in left hand (principal)
CPT/HCPCS: 73120

== ENCOUNTER 2021-12-10 11:51 | Outpatient (CLI) | payer OTHER, SELFPAY ==
--- NOTE | ~2021-12-10 | DEXA_ITS ---
Bone Density Report Name: IZABELA PARRA Age: 51 Sex: Female Ethnicity: White Date of : 1970 Indication: postmenopausal; screening for osteoporosis; height loss; prior fracture; hysterectomy; Referring Provider: EMERY, JULIO Morejon Study: Bone densitometry was performed. Exam Date: December 10, 2021 Accession number: [id number] Bone Density: Region BMD T-score Z-score Classification Femoral Neck (Left) 0.992 1.3 2.2 Normal Total Hip (Left) 1.088 1.2 1.8 Normal Femoral Neck (Right) 0.904 0.5 1.5 Normal Total Hip (Right) 1.073 1.1 1.7 Normal Femoral Neck Mean 0.948 0.9 1.9 Normal Total Hip Mean 1.081 1.1 1.7 Normal World Health Organization criteria for BMD impression classify patients as: Normal (T-score at or above -1.0), Osteopenia (T-score between -1.0 and -2.5), or Osteoporosis (T-score at or below -2.5). 10-year Fracture Risk: FRAX not reported because: All T-scores for Spine Total, Hip Total, Femoral Neck at or above -1.0 Prior hip or vertebral fracture Clinical Information Provided by Patient: Have had a previous hip or vertebral fracture Has had a low trauma fracture Has used the following medications: Vitamin D, Calcium Has the following medical conditions: Hysterectomy Patient maximum height was 68 Menopause Age: 26 Drinks caffeinated beverages Onset of menses at age 9 Number of children 3 Missed period for more than 6 months in a row Impression: The patient has normal bone mass. The patient has risk factors, including: previous fracture. Discussion: INCREASED RISK OF FRACTURE DUE TO HISTORY OF FRACTURE. The patient's previous fracture puts the patient at high risk of a future fracture. In untreated patients, the risk of osteoporotic fracture increases approximately two-fold for each 1.0 SD decrease in T-score. Low bone density is not the only risk factor for fracture; also consider factors such as patient's age, frailty or poor health, risk of falling, risk of injury, previous osteoporotic fracture, family history of osteoporosis, cigarette smoking, low body weight, etc. Not everyone with a low trauma fracture has osteoporosis; osteomalacia and other metabolic bone disorders should also be considered. Patients who have osteoporosis should be evaluated for specific diseases and conditions (secondary causes) that may cause or contribute to bone loss and fracture risk. National Osteoporosis Foundation (NOF) recommends pharmacologic intervention for patients with a prior hip or vertebral fracture regardless of BMD T-score. The patient should follow a healthful lifestyle (good nutrition with adequate calcium and vitamin D, and appropriate weight-bearing exercise). Follow-Up: Consider a repeat BMD and Vertebral Fracture Assessment (VFA) exam in 2 years or sooner if medical
--- NOTE | ~2021-12-10 | MM_ITS ---
EXAMINATION: MM screening bea BI w maira HISTORY: Screening mammogram TECHNIQUE: Craniocaudal and mediolateral oblique 3-D tomosynthesis images were obtained and synthetic 2-D images were generated. CAD analysis was submitted and interpreted. COMPARISON: 02/07/2020 limited left breast ultrasound examination 02/26/2015 diagnostic left mammogram and complete left breast ultrasound 02/19/2015 bilateral screening mammogram BREAST PARENCHYMAL COMPOSITION: There are scattered areas of fibroglandular density. FINDINGS: Occasional benign calcifications. There is no evidence of suspicious mass, calcification, o r architectural distortion to suggest malignancy in either breast. There has been no suspicious inter edita change. IMPRESSION: 1. No mammographic evidence of malignancy. 2. Recommend routine screening mammography in one year. BI-RADS Category 2: Benign finding(s). Reviewed, dictated and finalized at location A.
== END 2021-12-10 11:52 | disposition home or self-care (01) ==
LOC: CHSIMG 11:52
PROVIDERS: PCP Nurse Practitioner Family; Visit Provider Nurse Practitioner Family
DX: Z12.31 Encounter for screening mammogram for malignant neoplasm of breast (principal); Z78.0 Asymptomatic menopausal state; Z13.820 Encounter for screening for osteoporosis; M81.0 Age-related osteoporosis without current pathological fracture
CPT/HCPCS: 77063; 77067; 77080

== ENCOUNTER 2022-01-20 15:21 | Outpatient (CLI) | payer OTHER, SELFPAY ==
--- NOTE | ~2022-01-20 | XR_ITS ---
EXAMINATION: XR chest 2V Exam Date/Time: 01/20/2022 15:50 CDT CLINICAL HISTORY: Hiatal hernia, diabetes mellitus, preop. Comparison: 12/27/18. RESULT: Lines, tubes, and devices: None. Lungs and pleura: Clear. Cardiomediastinal silhouette: Stable cardiomediastinal silhouette. Other: No acute osseous or upper abdominal finding. IMPRESSION: No acute cardiopulmonary process Reviewed, dictated and finalized at location K.
[2022-01-20 15:52] LABS: Basophils Absolute Auto 0.05 K/mm3 (0.00-0.10); Basophils Percent Auto 0.6 % (0.0-1.0); Eosinophils Absolute Auto 0.15 K/mm3 (0.02-0.50); Eosinophils Percent Auto 1.7 % (1.0-6.0); Hematocrit 39.3 % (35.0-49.0); Hemoglobin 13.8 g/dL (12.0-15.0); Immature Granulocyte Absolute 0.13 K/mm3 (0.00-0.00); Immature Granulocyte Percent A 1.5 % (0.0-0.0); Lymphocytes Absolute Auto 2.29 K/mm3 (1.10-4.50); Lymphocytes Percent Auto 25.6 % (18.0-42.0); Mean Corpuscular HGB Conc 35.1 g/dL (32.0-36.0); Mean Corpuscular Hemoglobin 31.9 pg (27.0-31.0); Mean Platelet Volume 11.2 fl (9.2-11.8); Monocytes Absolute Auto 0.48 K/mm3 (0.10-0.90); Monocytes Percent Auto 5.4 % (2.0-11.0); Neutrophils Absolute Auto 5.8 K/mm3 (1.7-7.2); Neutrophils Percent Auto 65.2 % (50.0-70.0); Platelet Count Result 234 K/mm3 (150-420); Red Blood Count 4.32 M/mm3 (4.20-5.40); Red Cell Distribution Width 11.9 % (11.6-14.4); White Blood Count 8.9 K/mm3 (4.8-10.8)
[2022-01-20 16:19] LABS: Alanine Aminotransferase 28 U/L (14-59); Albumin Level 3.6 g/dL (3.4-5.0); Alkaline Phosphatase 69 U/L (46-116); Anion Gap 10 mmol/L (8-16); Aspartate Amino Transferase 24 U/L (15-37); Bilirubin,Total 0.2 mg/dL (0.00-1.00); Blood Urea Nitrogen 9 mg/dL (7-18); Calcium 8.7 mg/dL (8.5-10.1); Carbon Dioxide 25 mmol/L (21-32); Chloride 103 mmol/L (98-108); Cholesterol 265 mg/dL (0-200); Estimated Glomerular Filt Rate 53; Glucose 106 mg/dL (70-99); HDL Direct 39 mg/dL (40-60); LDL Cholesterol Calculated 138 mg/dL (<130); Magnesium 1.7 mg/dL (1.8-2.4); Osmolality Calculated 284 mOsm/kg (285-295); Sodium 138 mmol/L (136-145); Thyroid Stimulating Hormone 1.85 uIU/mL (0.36-3.74); Total Protein 6.7 g/dL (6.4-8.2); Triglycerides 438 mg/dL (0-150)
[2022-01-20 16:37] LABS: LDL Cholesterol Direct 137 mg/dL (0-130)
== END 2022-01-20 15:22 | disposition home or self-care (01) ==
LOC: CHSLAB 15:25
PROVIDERS: PCP Nurse Practitioner Family; Visit Provider Internal Medicine Cardiovascular Disease
DX: R07.89 Other chest pain (principal); R06.09 Other forms of dyspnea; E78.2 Mixed hyperlipidemia; I10 Essential (primary) hypertension; Z01.818 Encounter for other preprocedural examination
CPT/HCPCS: 36415; 71046; 80053; 80061; 83721; 83735; 84443; 85025

== ENCOUNTER 2022-02-01 14:14 | Outpatient (CLI) | payer OTHER, SELFPAY ==
--- NOTE | ~2022-02-01 | CT_ITS ---
EXAMINATION: CT lumbar spine wo con DATE: 02/01/2022 15:05 INDICATION: Chronic low back pain. TECHNIQUE: Computed tomography (CT) of the lumbar spine was performed without intravenous contrast. A utomated exposure control and iterative reconstruction technique were employed. The dose-length produ ct was 1196.54 mGy-cm. COMPARISON: None FINDINGS: There is 6 mm anterolisthesis of L5 on S1. There are changes of anterior and posterior fusi on procedures from L4 to S1 with interbody devices and pedicle screws. Vertebral body heights are nor mal. There is mildly decreased disc height at L1-L2 and L2-L3. There are electrodes in left S3 neural foramen. The following disc levels are specifically discussed: L1-L2: The disc is bulging. There is mild bilateral facet joint osteoarthritis. There is no neural fo raminal stenosis. There is mild central canal stenosis. L2-L3: The disc is bulging. There is severe bilateral facet joint osteoarthritis. There is mild bilat eral neural foraminal stenosis. There is mild central canal stenosis. L3-L4: The disc is bulging. There is severe bilateral facet joint osteoarthritis. There is mild bilat eral neural foraminal stenosis. There is mild central canal stenosis. L4-L5: There is mild right facet joint hypertrophy. There is mild right neural foraminal stenosis. Th ere is no central canal stenosis. There is posterior decompression. L5-S1: There is moderate right facet joint hypertrophy. There is moderate right neural foraminal sten osis. There is no central canal stenosis. There is posterior decompression. IMPRESSION: 1. Mild lumbar spondylosis. 2. Anterior and posterior fusion procedures from L4 to S1. Reviewed, dictated and finalized at location B.
== END 2022-02-01 14:15 | disposition home or self-care (01) ==
LOC: CHSIMG 14:17
PROVIDERS: PCP Nurse Practitioner Family; Visit Provider Nurse Practitioner Family
DX: M54.16 Radiculopathy, lumbar region (principal)
CPT/HCPCS: 72131

== ENCOUNTER 2022-03-05 04:08 | Day surgery (SDC) | payer OTHER, SELFPAY ==
[2022-02-23 12:33] VITALS: BMI 35.2
--- NOTE | 2022-02-23 12:53 | PC.NURSE ---
Report to the Outpatient Waiting Room, entrance under the green pavilion located off [facility], at time 0745 on date 03/05/22. OR Time: 0945. - You and your visitor will be asked a series of questions to screen for COVID 19 for your protection. - Only one visitor is allowed at this time. - The patient visitor is requested to leave or wait in car when not with patient. - A mask is required within the hospital. Patients may have clear liquids (water, carbonated beverages, clear teas, apple juice) until 3 hours prior to surgery with a maximum of 20 ounces. - No food from midnight until time of surgery Take the following medications with a SIP of water the morning of surgery: GABAPENTIN, CYMBALTA, PAIN PILL (IF NEEDED) Medications to discontinue per physician: VITAMINS/SUPPLEMENTS Date to take last dose: 03/01/22 STOP ASPIRIN 7 DAYS PRIOR TO PROCEDURE PER DR. RAMIREZ Please no make-up, nail danish, hairspray, perfume, deodorant, or body powder the day of surgery. No jewelry (including any body piercings) or valuables the day of surgery, leave them at home. Please take a shower or bath the night before, or the morning of, surgery with an antibacterial soap. Wear comfortable, loose fitting clothing. - Jewelry must be removed prior to entering the operating room. Rings and piercings that are not removed may be cut off. - The hospital will not accept responsibility for valuables. - Please leave all valuables, including medications, at home the day of surgery. If you are going home after surgery, a licensed refrigerated national truck driver must drive you home. - NO public transportation without another adult. - We recommend that an adult stay with you for 24 hours following discharge. - We also recommend that you do not drive, make important decision, drink alcoholic beverages, or take any drugs that were not prescribed by your health care provider for at least 24 hours after your discharge time. Follow any additional instructions given to you from your surgeon. If you or anyone in your household have experienced Covid symptoms in the past week, please notify your surgeon or the nurse liaison at the phone number below for possible testing. Telephone instructions given to PT - IZABELA PARRA and asked if any additional questions and then verbalized understanding. Patient advised to call surgeon office or pre surgery nurse liaison [phone] if any additional questions.
--- NOTE | 2022-03-04 13:27 | PM.IMHP ---
H&P: HPI History of Present Illness Date/Time: 03/04/22 13:27 Chief Complaint: Urge incontinence Narrative: this is a woman with a function InterStim device. He was placed in 2017. It is working well for symptom control. Unfortunately she has an MRI and it is not MRI compatible. She is here today for a full revision Review of Systems Review of Systems: All systems reviewed & are unremarkable except as noted in HPI and below PMFSH Past Medical History Medical History Bipolar 1 disorder Diabetes Migraine Surgical History Surgical History H/O: hysterectomy Family History Family History Other Family history of malignant neoplasm Hypertension Social History Social History Smoking status: Never smoker Tobacco type: cigarettes Second hand tobacco smoke exposure: No Alcohol intake: current Drinks per week: 1 Alcohol use details: 2/YEAR Substance use: never Substance use type: does not use Other substance usage details: medical marijuana Gender identity (if verbalized by the patient): Female Spiritual care concerns: No Meds Home Medications and Allergies Home Medications Medication Instructions Recorded Confirmed Type dulaglutide 1.5 mg/0.5 mL 1.5 mg subcut WEEKLY 01/30/20 02/23/22 History subcutaneous pen injector (Trulicity) fluticasone propionate 50 2 spray intranasal DAILY 01/30/20 02/23/22 History mcg/actuation nasal spray,suspension ibuprofen 800 mg tablet 800 mg PO Q6H PRN Pain 01/30/20 02/23/22 History aspirin 81 mg chewable tablet 81 mg PO DAILY 02/23/22 02/23/22 History atorvastatin 80 mg tablet 80 mg PO HS 02/23/22 02/23/22 History duloxetine 30 mg capsule,delayed 30 mg PO BID 02/23/22 02/23/22 History release (Cymbalta) ergocalciferol (vitamin D2) 1,250 1,250 mcg PO 2XW 02/23/22 02/23/22 History mcg (50,000 unit) capsule (Vitamin D2) estradiol 2 mg tablet 1 tablet PO DAILY 02/23/22 02/23/22 History gabapentin 300 mg capsule 300 mg PO TID 02/23/22 02/23/22 History magnesium oxide 400 mg PO DAILY 02/23/22 02/23/22 History omega 3-rwx-gmr-fish oil 1,000 mg 1 cap PO DAILY 02/23/22 02/23/22 History (120 mg-180 mg) capsule (Fish Oil) oxycodone 5 mg tablet 5 mg PO Q6H PRN Pain 02/23/22 02/23/22 History Allergies Allergy/AdvReac Type Severity Reaction Status Date / Time prochlorperazine Allergy Intermediate Other Verified 02/23/22 12:25 Exam Narrative: no acute distress alert orient x3 normal breathing Assessment and Plan Assessment and plan (1) Urge incontinence: Code(s): N39.41 - Urge incontinence Status: Acute Assessment and Plan: will remove and replace her InterStim system to an MRI compatible device. She understands risks of bleeding, infection, incomplete device removal, decreased efficacy. She agrees to proceed
--- NOTE | 2022-03-04 14:49 | WPDANESEPPF ---
Anes - Initial Pre Proc Eval Procedure: Operation Date: 03/05/22 09:45 Proposed Procedures p Neurostimulator Implant Phase Two - Shilo Lott MD Date/Time: 03/04/22 14:49 Surgeon: Shilo Lott MD Pre Op Diagnosis: overactive bladder Patient Data Age: 51 Gender: F Height: 1.7 m Weight: 102.06 kg Allergies Allergy/AdvReac Type Severity Reaction Status Date / Time prochlorperazine Allergy Intermediate Other Verified 02/23/22 12:25 Home Medications Medication Instructions Recorded Confirmed Type dulaglutide 1.5 mg/0.5 mL 1.5 mg subcut WEEKLY 01/30/20 02/23/22 History subcutaneous pen injector (Trulicity) fluticasone propionate 50 2 spray intranasal DAILY 01/30/20 02/23/22 History mcg/actuation nasal spray,suspension ibuprofen 800 mg tablet 800 mg PO Q6H PRN Pain 01/30/20 02/23/22 History aspirin 81 mg chewable tablet 81 mg PO DAILY 02/23/22 02/23/22 History atorvastatin 80 mg tablet 80 mg PO HS 02/23/22 02/23/22 History duloxetine 30 mg capsule,delayed 30 mg PO BID 02/23/22 03/05/22 History release (Cymbalta) ergocalciferol (vitamin D2) 1,250 1,250 mcg PO 2XW 02/23/22 03/05/22 History mcg (50,000 unit) capsule (Vitamin D2) estradiol 2 mg tablet 1 tablet PO DAILY 02/23/22 02/23/22 History gabapentin 300 mg capsule 300 mg PO TID 02/23/22 03/05/22 History magnesium oxide 400 mg PO DAILY 02/23/22 03/05/22 History omega 9-ozd-ndt-fish oil 1,000 mg 1 cap PO DAILY 02/23/22 03/05/22 History (120 mg-180 mg) capsule (Fish Oil) oxycodone 5 mg tablet 5 mg PO Q6H PRN Pain 02/23/22 02/23/22 History Patient hx anesthesia problems: none Family hx anesthesia problems: none Results Review: All pre-operative results and documents have been reviewed as part of the pre-operative evaluation. [facility] Past Medical History Medical History (Updated 03/04/22 @ 14:50 by Gilmar Richardson MD) Anxiety Back pain Bipolar 1 disorder Depression Diabetes Hyperlipidemia Migraine Obesity Surgical History Surgical History H/O: hysterectomy Family History Family History Other Family history of malignant neoplasm Hypertension Social History Social History Smoking status: Former smoker Tobacco type: cigarettes Second hand tobacco smoke exposure: No Alcohol intake: current Drinks per week: 1 Alcohol use details: 2/YEAR Substance use: current Substance use type: prescription drug and other Other substance usage details: medical marijuana Living arrangements: alone Gender identity (if verbalized by the patient): Female Spiritual care concerns: No Anes - Eval Final PreProcedure Day of Procedure 03/04/22 14:49 Patient weight: obese Heart: regular rate and rhythm Lungs: clear to auscultation and normal air movement Airway: Mallampati scale class II Neurological: alert and oriented Last oral intake: >/= 8 hours ASA classification: III Emergent: no Anesthetic plan: proceed Anesthesia type and monitoring: general Results Review: All pre-operative results and documents have been reviewed as part of the pre-operative evaluation. Informed Consent: The patient's anesthetic plan and its attendant risks and benefits were discussed with the patient/family/POA. Questions were solicited and answers provided to the satisfaction of the patient/family/POA.
--- NOTE | 2022-03-05 07:17 | WPDHPUPDATE1 ---
History and Physical Update Update Date/Time: 03/05/22 07:17 History and Physical has been reviewed, including an updated exam of the patient. There are NO changes in the patient's condition. Risks, benefits, and alternatives have been discussed and questions answered. Patient agrees to proceed with procedure.
--- NOTE | 2022-03-05 08:52 | SUR.PREOP ---
SPOKE WITH DR RAMIREZ, CONSENT NEEDS TO SAY REMOVE AND REPLACE NEUROSTIMULATOR IMPLANT PHASE 2
[2022-03-05 09:10] VITALS: BMI 35.2
[2022-03-05 09:11] VITALS: BP 128/74; PULSE 78; RESP 20; TEMP 36.8; O2SAT 98
[2022-03-05] MEDS: LACTATED RINGERS 1,000 ML 30 ML IV CONT (09:13)
[2022-03-05 09:19] LABS: Glucose Point of Care 106 mg/dl (65-105)
--- NOTE | 2022-03-05 09:58 | WPDHPUPDATE1 ---
History and Physical Update Update Date/Time: 03/05/22 09:58 Will plan on only changing her battery. original lead is not removable
--- NOTE | 2022-03-05 10:01 | SUR.PREOP ---
[id number]; DR RAMIREZ SPEAKING WITH PT. CHANGED PROCEDURE AGAIN TO NEUROSTIMULATOR BATTERY EXCHANGE
[2022-03-05] MEDS: ceFAZolin 2 GM/D5W 50 ML 2 GM/50 ML BAG IVPB (10:06)
[2022-03-05] MEDS: BUPIVACAINE HCL 0.25% PF 30 ML VIAL INFILTRATE (10:24)
[2022-03-05 10:33] VITALS: BP 138/64; PULSE 86; RESP 16; O2SAT 100
--- NOTE | 2022-03-05 10:46 | W.PM.PROC2 ---
Procedure Note - Detailed Date of Procedure 03/05/22 Pre-op Diagnosis overactive bladder Urge urinary incontinence Post-op Diagnosis Same Procedure Performed Exchange of neurostimulator battery Surgeon Shilo Lott MD Water Manager None Indications She has an InterStim device in place. It was placed in 2017. We did do a revision. Her original lead was left in place and is not retrievable. We originally discussed doing a full revision however I will not be able to retrieve her original lead. Her new lead is working well. We will just do a battery exchange. I am unable to get appropriate readings her battery is the battery life is so left Findings Uncomplicated procedure Description of Procedure She was correctly identified. Informed consent obtained. From the operating room. She was given MAC anesthesia. She was placed in prone position. Lower back and buttock were prepped and draped in a sterile fashion. Time-out performed. I anesthetized the skin over the pulse generator. I incised the skin. I located the pulse generator. I removed it. I program the new pulse generator. Appropriate connections were made to the appropriate lead. It was placed in the pocket. Impedances were checked and found to be normal. I irrigated out all wounds. Closed the subcutaneous tissues with 2-0 Vicryl. Skin with 4-0 Vicryl. Glue was applied. She was awakened transferred to PACU in stable condition. Implants Neurostimulator battery Estimated Blood Loss 1 Drains No Packing No Pathology None sent Complications No immediate complications Condition Stable Disposition PACU
[2022-03-05 11:00] VITALS: BP 115/59; PULSE 76; RESP 16
[2022-03-05 11:25] VITALS: BP 128/76; PULSE 78; RESP 16
== END 2022-03-05 11:45 | disposition home or self-care (01) ==
PROVIDERS: PCP Nurse Practitioner Family; Visit Provider Urology
PROC: (CPT 64590; principal; 2022-03-05 09:45)
DX: Z45.42 Encounter for adjustment and management of neurostimulator (principal); N39.41 Urge incontinence; N32.81 Overactive bladder; Z79.82 Long term (current) use of aspirin; F41.9 Anxiety disorder, unspecified; F31.9 Bipolar disorder, unspecified; E11.9 Type 2 diabetes mellitus without complications; E78.5 Hyperlipidemia, unspecified; Z87.891 Personal history of nicotine dependence; E66.9 Obesity, unspecified; Z68.35 Body mass index [BMI] 35.0-35.9, adult; F12.90 Cannabis use, unspecified, uncomplicated
CPT/HCPCS: 64590; 82948; C1767; C1778; C1787; J0690; J2250; J2704; J3010; J7120

== ENCOUNTER 2022-03-23 15:12 | Outpatient (CLI) | payer OTHER, SELFPAY ==
[2022-03-23 16:16] LABS: SARS-CoV-2 RNA PCR Negative (Negative)
== END 2022-03-23 15:13 | disposition home or self-care (01) ==
LOC: CHSLAB 15:17
PROVIDERS: PCP Nurse Practitioner Family
DX: Z20.822 Contact with and (suspected) exposure to COVID-19 (principal)
CPT/HCPCS: C9803; U0003; U0005

== ENCOUNTER 2022-04-01 14:42 | Emergency (ER) | payer OTHER, SELFPAY ==
--- NOTE | ~2022-04-01 | XR_ITS ---
XR knee LT 3V DATE: 04/01/2022 15:34 INDICATION: Generalized knee pain for weeks TECHNIQUE: [place], AP and lateral views COMPARISON: 8203/2015 MR left knee 04/10/2015 left knee FINDINGS: There is prominent enthesopathy of the patella at the quadriceps and patellar tendon insert ion sites. There is mild periarticular spurring at the patellofemoral joint. Joint spaces are relatively well pr eserved. No fracture or dislocation, periosteal reaction or bone destruction. No radiopaque intra-articular loose body or chondrocalcinosis. IMPRESSION: Patellar enthesopathy Mild patellofemoral osteoarthritis Reviewed, dictated and finalized at location A.
[2022-04-01 14:56] VITALS: BP 128/70; PULSE 97; RESP 18; TEMP 36.4; O2SAT 98
[2022-04-01 14:57] VITALS: BP 128/70; PULSE 97; RESP 17; TEMP 36.4; O2SAT 97
--- NOTE | 2022-04-01 15:19 | ED.EXTPRO ---
HPI - Extremity Problem General Chief complaint: Extremity Problem,Nontraumatic Stated complaint: knee injury Source: patient Mode of arrival: ambulatory History of Present Illness HPI Narrative: this is a 51-year-old female presenting to ED with left knee pain. Patient states he was walking to her kitchen at approximately 3:00 a.m. last night. She twisted to grab something off the counter and felt a popping sensation in her left knee. She also noted a sliding sensation in her knee.She did not fall down. At that point she went to lay down when sleep. However today she notes that she is having increased pain and difficulty walking. Pain Consistency: constant Location: left and knee Severity scale (1-10): 8 Quality: sharp Radiation: none Related Data Home Medications Medication Instructions Recorded Confirmed dulaglutide 1.5 mg/0.5 mL 1.5 mg subcut WEEKLY 01/30/20 04/01/22 subcutaneous [facility] fluticasone propionate 50 2 spray intranasal DAILY 01/30/20 04/01/22 mcg/actuation nasal spray,suspension ibuprofen 800 mg tablet 800 mg PO Q6H PRN Pain 01/30/20 04/01/22 aspirin 81 mg chewable tablet 81 mg PO DAILY 02/23/22 04/01/22 duloxetine 30 mg capsule,delayed 30 mg PO BID 02/23/22 04/01/22 release (Cymbalta) ergocalciferol (vitamin D2) 1,250 1,250 mcg PO 2XW 02/23/22 04/01/22 mcg (50,000 unit) capsule (Vitamin D2) estradiol 2 mg tablet 1 tablet PO DAILY 02/23/22 04/01/22 gabapentin 300 mg capsule 300 mg PO TID 02/23/22 04/01/22 magnesium oxide 400 mg PO DAILY 02/23/22 04/01/22 omega 8-bmo-icf-fish oil 1,000 mg 1 cap PO DAILY 02/23/22 04/01/22 (120 mg-180 mg) capsule (Fish Oil) oxycodone 5 mg tablet 5 mg PO Q6H PRN Pain 02/23/22 04/01/22 Allergies Allergy/AdvReac Type Severity Reaction Status Date / Time prochlorperazine Allergy Intermediate Other Verified 04/01/22 15:01 Review of Systems Constitutional: Constitutional: Reports no additional constitutional complaints Eyes: Eyes: Reports no additional eye complaints ENT: Reports system reviewed and no additional complaints, except as documented Cardiovascular: Cardiovascular: Denies chest pain Respiratory: Respiratory: Denies cough Gastrointestinal: Gastrointestinal: Denies abdominal pain Genitourinary: Genitourinary: Reports no additional female genitourinary complaints Musculoskeletal: Musculoskeletal: Reports arthralgias and Reports joint swelling Integumentary/Breasts: Skin/Breast: Denies rash Neurologic: Denies confusion Psychiatric: Psychiatric: Denies anxiety Endocrine: Endocrine: Denies excessive sweating Hematologic/Lymphatic: Hematologic/Lymphatic: Denies easy bruising Allergic/Immunologic: Allergic/Immunologic: Denies lip swelling PMFSH Past Medical History Medical History Anxiety Back pain Bipolar 1 disorder Depression Diabetes Hyperlipidemia Migraine Obesity Surgical History Surgical History H/O: hysterectomy History of carpal tunnel release History of foot surgery History of left knee surgery Hx of cholecystectomy Family History Family History Other Family history of malignant neoplasm Hypertension Social History Social History Smoking status: Never smoker Tobacco type: cigarettes Second hand tobacco smoke exposure: No Alcohol intake: current Drinks per week: 1 Alcohol use details: 2/YEAR Substance use: never Substance use type: does not use Other substance usage details: medical marijuana Gender identity (if verbalized by the patient): Female Spiritual care concerns: No Exam Const: General: healthy appearing, no acute distress and alert HENMT: Head: normal to inspection Ears: external ears normal General nose exam: Normal exter
[2022-04-01] MEDS: IBUPROFEN 400 MG TABLET 800 MG PO (15:25)
[2022-04-01 15:57] VITALS: BP 128/70; PULSE 97; RESP 17; TEMP 36.4; O2SAT 97
== END 2022-04-01 15:59 | disposition home or self-care (01) ==
PROVIDERS: Emergency Provider Emergency Medicine; PCP Nurse Practitioner Family
DX: S89.82XA Other specified injuries of left lower leg, initial encounter (principal); E78.5 Hyperlipidemia, unspecified; E11.9 Type 2 diabetes mellitus without complications; F41.9 Anxiety disorder, unspecified; F31.9 Bipolar disorder, unspecified; X50.1XXA Overexertion from prolonged static or awkward postures, initial encounter
CPT/HCPCS: 73562; 99283; A9270

== ENCOUNTER 2022-04-06 11:43 | Outpatient (CLI) | payer OTHER, SELFPAY ==
[2022-04-06 12:34] LABS: Alanine Aminotransferase 21 U/L (14-59); Albumin Level 3.5 g/dL (3.4-5.0); Alkaline Phosphatase 69 U/L (46-116); Anion Gap 13 mmol/L (8-16); Aspartate Amino Transferase 15 U/L (15-37); Bilirubin,Total 0.3 mg/dL (0.00-1.00); Blood Urea Nitrogen 15 mg/dL (7-18); Carbon Dioxide 23 mmol/L (21-32); Chloride 105 mmol/L (98-108); Cholesterol 132 mg/dL (0-200); Creatine Kinase 72 U/L (26-192); Estimated Glomerular Filt Rate 50; Glucose 152 mg/dL (70-99); HDL Direct 45 mg/dL (40-60); LDL Cholesterol Calculated 55 mg/dL (<130); Magnesium 1.6 mg/dL (1.8-2.4); Osmolality Calculated 295 mOsm/kg (285-295); Sodium 141 mmol/L (136-145); Total Protein 6.8 g/dL (6.4-8.2); Triglycerides 161 mg/dL (0-150)
== END 2022-04-06 11:44 | disposition home or self-care (01) ==
LOC: CHSLAB 11:46
PROVIDERS: PCP Nurse Practitioner Family; Visit Provider Internal Medicine Cardiovascular Disease
DX: E78.2 Mixed hyperlipidemia (principal); I10 Essential (primary) hypertension
CPT/HCPCS: 36415; 80053; 80061; 82550; 83735

== ENCOUNTER 2022-07-06 17:09 | Outpatient (CLI) | payer OTHER, SELFPAY ==
[2022-07-06 17:41] LABS: Appearance Urine Clear (Clear); Basophils Absolute Auto 0.08 K/mm3 (0.00-0.10); Bilirubin Urine Negative (Negative); Blood Urine Negative (Negative); Eosinophils Absolute Auto 0.21 K/mm3 (0.02-0.50); Eosinophils Percent Auto 2.7 % (1.0-6.0); Glucose Urine UA Negative (Negative); Hematocrit 38.8 % (35.0-49.0); Hemoglobin 13.7 g/dL (12.0-15.0); Immature Granulocyte Absolute 0.02 K/mm3 (0.00-0.00); Immature Granulocyte Percent A 0.3 % (0.0-0.0); Ketones Urine Negative (Negative); Leukocyte Esterase Ur 2+ (Negative); Lymphocytes Absolute Auto 1.91 K/mm3 (1.10-4.50); Lymphocytes Percent Auto 24.3 % (18.0-42.0); Mean Corpuscular HGB Conc 35.3 g/dL (32.0-36.0); Mean Corpuscular Hemoglobin 31.5 pg (27.0-31.0); Mean Corpuscular Volume 89.2 fL (78.0-102.0); Mean Platelet Volume 11.2 fl (9.2-11.8); Monocytes Percent Auto 6.4 % (2.0-11.0); Neutrophils Absolute Auto 5.2 K/mm3 (1.7-7.2); Neutrophils Percent Auto 65.3 % (50.0-70.0); Nitrate Urine Negative (Negative); Platelet Count Result 251 K/mm3 (150-420); Protein Urine Negative (Negative); Red Blood Count 4.35 M/mm3 (4.20-5.40); Red Cell Distribution Width 11.9 % (11.6-14.4); Specific Grav Ur 1.015 (1.010-1.020); Urobilinogen Urine 0.2 mg/dL (0.2-1.0); White Blood Count 7.9 K/mm3 (4.8-10.8); pH Urine 6.5 (5.0-8.0)
[2022-07-06 17:47] LABS: Creatinine Urine 194.16 mg/dL (40-278); Total Protein Urine Random 25.6 mg/dL (0.0-11.9); Ur Ttl Prot Creatinine Ratio 0.13 mg/mg (0-0.20)
[2022-07-06 17:53] LABS: Add Urine Microscopic? YES; Bacteria Urine 1+ /hpf; Color Urine Light Yellow (Yellow); RBC Urine 0-2 /hpf (0-2); Squamous Epithelial Cell Urine Few /hpf (Few)
[2022-07-06 18:33] LABS: Anion Gap 13 mmol/L (8-16); Blood Urea Nitrogen 8 mg/dL (7-18); Calcium 9.2 mg/dL (8.5-10.1); Carbon Dioxide 25 mmol/L (21-32); Chloride 102 mmol/L (98-108); Estimated Glomerular Filt Rate 55; Glucose 124 mg/dL (70-99); Osmolality Calculated 289 mOsm/kg (285-295); Phosphorus 3.8 mg/dL (2.6-4.7); Potassium 4.3 mmol/L (3.5-5.1); Sodium 140 mmol/L (136-145)
[2022-07-06 18:46] LABS: Erythrocyte Sedimentation Rate 24 mm/hr (0-20)
[2022-07-11 02:26] LABS: Complement C3 172 mg/dL (83-193); Complement Total CH50 >60 U/mL (31-60)
[2022-07-13 13:49] LABS: Kappa\\Lambda Light Chains 1.01 (0.26-1.65)
== END 2022-07-06 17:10 | disposition home or self-care (01) ==
LOC: CHSLAB 17:12
PROVIDERS: PCP Nurse Practitioner Family; Visit Provider Internal Medicine Nephrology
DX: R94.4 Abnormal results of kidney function studies (principal)
CPT/HCPCS: 36415; 80069; 81001; 82570; 83883; 84156; 85025; 85652; 86038; 86160; 86162; 86334

== ENCOUNTER 2022-07-12 10:01 | Outpatient (CLI) | payer OTHER, SELFPAY ==
[2022-07-18 15:21] LABS: Albumin 65 %; Measured Kappa Chains <1.00 mg/dL (<2.00); Measured Lambda Chains <1.00 mg/dL (<2.00); Pro/Creat Ratio 175 mg/g creat (<150)
[2022-07-27 14:31] LABS: Creat 24 Hr 0.47
== END 2022-07-12 10:02 | disposition home or self-care (01) ==
PROVIDERS: PCP Nurse Practitioner Family; Visit Provider Internal Medicine Nephrology
DX: R94.4 Abnormal results of kidney function studies (principal)
CPT/HCPCS: 86335

== ENCOUNTER 2022-08-10 18:43 | Outpatient (CLI) | payer OTHER, SELFPAY ==
[2022-08-10 19:00] LABS: Appearance Urine Clear (Clear); Bilirubin Urine Negative (Negative); Blood Urine Negative (Negative); Glucose Urine UA Negative (Negative); Ketones Urine Negative (Negative); Leukocyte Esterase Ur Trace (Negative); Nitrate Urine Negative (Negative); Protein Urine Negative (Negative); Urobilinogen Urine 0.2 mg/dL (0.2-1.0); pH Urine 7.5 (5.0-8.0)
[2022-08-10 19:04] LABS: Add Urine Microscopic? YES; Color Urine Light Yellow (Yellow)
[2022-08-10 19:06] LABS: Bacteria Urine Trace /hpf; RBC Urine 0-2 /hpf (0-2); Squamous Epithelial Cell Urine Rare /hpf (Few); WBC Urine 0-3 /hpf (0-3)
== END 2022-08-10 18:44 | disposition home or self-care (01) ==
LOC: CHSLAB 18:47
PROVIDERS: PCP Internal Medicine Nephrology; Visit Provider Internal Medicine Nephrology
DX: N39.0 Urinary tract infection, site not specified (principal)
CPT/HCPCS: 81001; 87077; 87086; 87088; 87186

== ENCOUNTER 2022-10-25 09:50 | Outpatient (CLI) | payer OTHER, SELFPAY ==
[2022-10-25 10:41] LABS: Creatinine Urine 67.43 mg/dL (40-278); Total Protein Urine Random 15.2 mg/dL (0.0-11.9); Ur Ttl Prot Creatinine Ratio 0.23 mg/mg (0-0.20)
[2022-10-25 11:17] LABS: Albumin Level 3.7 g/dL (3.4-5.0); Anion Gap 10 mmol/L (8-16); Blood Urea Nitrogen 11 mg/dL (7-18); Carbon Dioxide 28 mmol/L (21-32); Chloride 102 mmol/L (98-108); Estimated Glomerular Filt Rate 51; Glucose 177 mg/dL (70-99); Magnesium 1.5 mg/dL (1.8-2.4); Osmolality Calculated 293 mOsm/kg (285-295); Phosphorus 4.4 mg/dL (2.6-4.7); Sodium 140 mmol/L (136-145); Vitamin B12 295 pg/mL (193-986)
[2022-10-25 11:19] LABS: Folic Acid > 20.0 ng/mL (8.6->20)
[2022-10-28 17:23] LABS: Vitamin D 25 Hydroxy >150 ng/mL (30-100)
== END 2022-10-25 09:51 | disposition home or self-care (01) ==
LOC: CHSLAB 09:55
PROVIDERS: PCP Nurse Practitioner Family; Visit Provider Internal Medicine Nephrology
DX: R94.4 Abnormal results of kidney function studies (principal); I10 Essential (primary) hypertension; R60.0 Localized edema; Z79.899 Other long term (current) drug therapy
CPT/HCPCS: 36415; 80069; 82306; 82570; 82607; 82746; 83735; 84156

== ENCOUNTER 2022-11-08 10:33 | Outpatient (CLI) | payer OTHER, SELFPAY ==
--- NOTE | ~2022-11-08 | US_ITS ---
Renal-Bladder ultrasound Clinical History: Abnormal renal function Technique: Real-time sonographic imaging of the kidneys and urinary bladder was performed. Findings: The right kidney measures 10.4 cm in length and the left kidney measures 9.4 cm. There is n o hydronephrosis or renal calculus identified. Renal cortical echogenicity is within normal limits. N o renal mass lesion is identified. The urinary bladder is largely collapsed, limiting evaluation. Impression: Unremarkable ultrasound of the kidneys. Reviewed, dictated and finalized at location M. 'S SURVEYOR Impression: Unremarkable ultrasound of the kidneys.
== END 2022-11-08 10:34 | disposition home or self-care (01) ==
LOC: CHSIMG 10:34
PROVIDERS: PCP Nurse Practitioner Family; Visit Provider Internal Medicine Nephrology
DX: R94.4 Abnormal results of kidney function studies (principal)
CPT/HCPCS: 76770

== ENCOUNTER 2022-11-11 18:25 | Emergency (ER) | payer OTHER, SELFPAY ==
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
[2022-11-11 18:27] VITALS: BP 137/81; PULSE 90; TEMP 36.6; O2SAT 100
[2022-11-11 18:35] VITALS: BP 137/81; PULSE 90; RESP 16; TEMP 36.5; O2SAT 100
[2022-11-11] MEDS: ORPHENADRINE CITRATE 30 MG/ML 2 ML VIAL 60 MG IM (19:30)
[2022-11-11] MEDS: KETOROLAC (*BKC) 60 MG/2 ML VIAL IM (19:30)
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
[2022-11-11 19:45] VITALS: BP 132/60; PULSE 72; RESP 20; TEMP 36.6; O2SAT 96
[2022-11-11 20:35] VITALS: BP 137/80; PULSE 70; RESP 20; TEMP 37; O2SAT 96
== END 2022-11-11 20:38 | disposition home or self-care (01) ==
PROVIDERS: Emergency Provider Emergency Medicine; PCP Nurse Practitioner Family
DX: S16.1XXA Strain of muscle, fascia and tendon at neck level, initial encounter (principal); S39.012A Strain of muscle, fascia and tendon of lower back, initial encounter; M54.31 Sciatica, right side; V49.60XA Unspecified car occupant injured in collision with unspecified motor vehicles in traffic accident, initial encounter; E11.9 Type 2 diabetes mellitus without complications; E78.5 Hyperlipidemia, unspecified; F31.9 Bipolar disorder, unspecified; F41.9 Anxiety disorder, unspecified; F12.90 Cannabis use, unspecified, uncomplicated; Z79.899 Other long term (current) drug therapy; Z79.82 Long term (current) use of aspirin
CPT/HCPCS: 72125; 72131; 96372; 99284; J1885; J2360

== ENCOUNTER 2022-11-24 16:07 | Outpatient (CLI) | payer OTHER, SELFPAY ==
--- NOTE | ~2022-11-24 | XR_ITS ---
Lumbosacral Spine: AP and lateral views, with neutral, flexion, extension positioning Clinical History: Pain Findings: The normal lordotic curve is maintained. There is posterior fusion from L4 to S1 with bilat eral rods and transpedicular screws present. Interbody fusion devices are present at the L4-L5 and L5 -S1 disc spaces. Probable laminectomies present at L4 and L5. Suggestion of minimal grade 1 anterolis thesis of L5 over S1. No instability evident. Presumed neurostimulator device present. The sacroiliac joints are normally outlined. Impression: Posterior fusion/postsurgical changes from L4 through S1, as detailed above. No instability evident. Reviewed, dictated and finalized at location M. UN[employer] Impression: Posterior fusion/postsurgical changes from L4 through S1, as detailed above. No instability evident.
--- NOTE | ~2022-11-24 | XR_ITS ---
Cervical Spine: AP, open-mouth, and lateral views, with neutral, flexion, and extension positioning Clinical History: Pain Findings: There is straightening of the normal cervical lordosis. There is anterior fusion from C5 to C7. There is moderate to severe degenerative disc narrowing at C4-C5. There is uncovertebral degener ative change at this level as well. No instability evident on flexion or extension. Pre-vertebral sof t tissues are unremarkable. Impression: No acute abnormality evident. No instability evident on flexion or extension. Anterior fusion from C5 to C7, with moderate to severe degenerative disc narrowing at C4-C5. Reviewed, dictated and finalized at [facility]. EACH PROFESSIONAL Impression: No acute abnormality evident. No instability evident on flexion or extension. Anterior fusion from C5 to C7, with moderate to severe degenerative disc narrow ing at C4-C5.
== END 2022-11-24 16:08 | disposition home or self-care (01) ==
LOC: CHSIMG 16:17
PROVIDERS: PCP Nurse Practitioner Family
DX: M54.16 Radiculopathy, lumbar region (principal); M54.2 Cervicalgia; Z98.1 Arthrodesis status; M48.02 Spinal stenosis, cervical region
CPT/HCPCS: 72050; 72110

== ENCOUNTER 2023-01-29 19:37 | Emergency (ER) | payer OTHER, SELFPAY ==
--- NOTE | ~2023-01-29 | XR_ITS ---
EXAM: XR wrist RT min 3V DATE: 01/29/2023 20:17 HISTORY: POSTERIOR AND LATERAL RIGHT WRIST PAIN X 2 DAYS. NKI. . COMPARISON: None available. FINDINGS: Normal mineralization. No fracture or dislocation. No lytic or blastic lesion. Scattered m ild degenerative change. No erosion or periosteal change. Soft tissues within normal limits. IMPRESSION: No acute osseous finding in the right wrist. Reviewed, dictated and finalized at location K.
[2023-01-29 19:45] VITALS: BP 143/79; PULSE 107; RESP 18; TEMP 37.6; O2SAT 97
[2023-01-29] MEDS: KETOROLAC (*BKC) 60 MG/2 ML VIAL IM (20:14)
--- NOTE | 2023-01-29 20:18 | PC.NURSE ---
Pt medicated per MAR. No needs at this time. Call light within reach.
--- NOTE | 2023-01-29 20:24 | ED.EXTPRO ---
HPI - Extremity Problem General Chief complaint: Extremity Problem,Nontraumatic Stated complaint: Right Wrist Source: patient Mode of arrival: ambulatory Limitations: no limitations History of Present Illness HPI Narrative: This is a 52-year-old female who presents with right wrist pain with no known injury has a remote history of carpal tunnel surgery the area is warm red and swollen and tender to touch has a history of gout. There is no numbness or tingling has reduced range of motion secondary to pain swelling. Patient has had a history of gout in her knee in the past. MD Complaint: extremity pain and extremity swelling Onset (ago): day(s) Pain Consistency: constant Location: right Severity scale (1-10): 7 Quality: aching Related Data Home Medications Medication Instructions Recorded Confirmed dulaglutide 1.5 mg/0.5 mL 1.5 mg subcut WEEKLY 01/30/20 12/07/22 subcutaneous pen injector ([facility]) aspirin 81 mg chewable tablet 81 mg PO DAILY 02/23/22 12/07/22 estradiol 2 mg tablet 1 tablet PO DAILY 02/23/22 12/07/22 gabapentin 300 mg capsule 300 mg PO TID 02/23/22 12/07/22 magnesium oxide 400 mg PO DAILY 02/23/22 12/07/22 omega 1-dvq-qqp-fish oil 1,000 mg 1 cap PO DAILY 02/23/22 12/07/22 (120 mg-180 mg) capsule (Fish Oil) oxycodone 5 mg tablet 5 mg PO Q6H PRN Pain 02/23/22 12/07/22 fluticasone propionate 50 2 spray intranasal BID 06/24/22 12/07/22 mcg/actuation nasal spray,suspension Allergies Allergy/AdvReac Type Severity Reaction Status Date / Time prochlorperazine Allergy Intermediate Other Verified 01/29/23 19:54 Review of Systems Review of Systems: All systems reviewed & are unremarkable except as noted in HPI and below Integumentary/Breasts: Skin/Breast: Reports system reviewed and no additional complaints, except as docu PMFSH Past Medical History Medical History Anxiety Back pain Bipolar 1 disorder Depression Diabetes Hyperlipidemia Migraine Obesity Surgical History Surgical History H/O: hysterectomy History of carpal tunnel release History of foot surgery History of left knee surgery Hx of cholecystectomy Family History Family History Other Family history of malignant neoplasm Hypertension Social History Social History Smoking status: Never smoker Tobacco type: cigarettes Second hand tobacco smoke exposure: No Alcohol intake: current Drinks per week: 1 Alcohol use details: rare occasional use Substance use: never Substance use type: does not use Other substance usage details: medical marijuanna Lack of Transportation: No Lack of Food: Never True Current Housing: I Have Housing Concerned About Future Housing: No Difficulty Paying Gas/Electric Bills: Decline to Answer Difficulty Paying for Meds: Decline to Answer Currently Unemployed: No Education: High School Diploma/GED Living arrangements: with family Gender identity (if verbalized by the patient): Female Spiritual care concerns: No Exam Const: General: healthy appearing Nutritional Appearance: well nourished Orientation/consciousness: patient oriented x3 Limitations: no limitations HENMT: Head: normal to inspection Ears: external ears normal Eyes: Conjunctivae: conjunctivae normal Pupils: Equal, round and reactive pupils present EOM: EOMs intact bilaterally Chest: Chest palpation & inspection: normal inspection of the chest Resp: Effort & Inspection: normal respiratory effort Auscultation: clear to auscultation bilaterally Cardio: Rate: regular rate Rhythm: regular rhythm GI: GI Palp: Yes Soft to palpation : General: Yes bladder normal to palpation Skin: General skin exam: normal color Rashes: no rashes Wounds: no wounds Othe
== END 2023-01-29 21:01 | disposition home or self-care (01) ==
PROVIDERS: Emergency Provider Emergency Medicine; PCP Nurse Practitioner Family
DX: M10.9 Gout, unspecified (principal); E11.9 Type 2 diabetes mellitus without complications; E78.5 Hyperlipidemia, unspecified; F41.9 Anxiety disorder, unspecified; F32.A Depression, unspecified
CPT/HCPCS: 73110; 96372; 99283; J1885

== ENCOUNTER 2023-03-14 06:58 | Outpatient (CLI) | payer OTHER, SELFPAY ==
[2023-03-14 07:29] LABS: Basophils Absolute Auto 0.09 K/mm3 (0.00-0.10); Basophils Percent Auto 1.4 % (0.0-1.0); Eosinophils Absolute Auto 0.25 K/mm3 (0.02-0.50); Eosinophils Percent Auto 3.9 % (1.0-6.0); Hematocrit 39.8 % (35.0-49.0); Hemoglobin 13.4 g/dL (12.0-15.0); Immature Granulocyte Absolute 0.02 K/mm3 (0.00-0.00); Immature Granulocyte Percent A 0.3 % (0.0-0.0); Lymphocytes Absolute Auto 2.43 K/mm3 (1.10-4.50); Lymphocytes Percent Auto 37.5 % (18.0-42.0); Mean Corpuscular HGB Conc 33.7 g/dL (32.0-36.0); Mean Corpuscular Hemoglobin 30.5 pg (27.0-31.0); Mean Corpuscular Volume 90.5 fL (78.0-102.0); Mean Platelet Volume 10.9 fl (9.2-11.8); Monocytes Absolute Auto 0.47 K/mm3 (0.10-0.90); Monocytes Percent Auto 7.3 % (2.0-11.0); Neutrophils Absolute Auto 3.2 K/mm3 (1.7-7.2); Neutrophils Percent Auto 49.6 % (50.0-70.0); Platelet Count Result 268 K/mm3 (150-420); Red Cell Distribution Width 12.4 % (11.6-14.4); White Blood Count 6.5 K/mm3 (4.8-10.8)
[2023-03-14 08:03] LABS: Rheumatoid Factor Screen Negative (Negative)
[2023-03-14 08:10] LABS: Alanine Aminotransferase 14 U/L (14-59); Albumin Level 3.5 g/dL (3.4-5.0); Alkaline Phosphatase 72 U/L (46-116); Anion Gap 11 mmol/L (8-16); Aspartate Amino Transferase 10 U/L (15-37); Bilirubin,Total 0.2 mg/dL (0.00-1.00); Blood Urea Nitrogen 15 mg/dL (7-18); CRP 0.7 mg/dL (0.0-0.9); Calcium 8.9 mg/dL (8.5-10.1); Carbon Dioxide 27 mmol/L (21-32); Chloride 108 mmol/L (98-108); Estimated Glomerular Filt Rate 58; Glucose 112 mg/dL (70-99); Osmolality Calculated 303 mOsm/kg (285-295); Potassium 3.7 mmol/L (3.5-5.1); Sodium 146 mmol/L (136-145); Thyroid Stimulating Hormone 2.03 uIU/mL (0.36-3.74); Total Protein 6.9 g/dL (6.4-8.2); Uric Acid 7.4 mg/dL (2.6-6.0)
[2023-03-14 08:29] LABS: Erythrocyte Sedimentation Rate 12 mm/hr (0-20)
[2023-03-16 21:33] LABS: Vitamin D 25 Hydroxy 88 ng/mL (30-100)
[2023-03-16 23:06] LABS: Anti Cyclic Citrullinated Pept <16 Units (<20)
[2023-03-17 23:50] LABS: Hepatitis A Antibody IgM Nonreactive; Hepatitis B Core Antibody Nonreactive (Nonreactive); Hepatitis B Surface Antigen Nonreactive (Nonreactive); Hepatitis C Virus Antibody Nonreactive
== END 2023-03-14 06:59 | disposition home or self-care (01) ==
LOC: CHSLAB 07:03
PROVIDERS: PCP Nurse Practitioner Family
DX: M25.50 Pain in unspecified joint (principal); N18.31 Chronic kidney disease, stage 3a; E67.3 Hypervitaminosis D
CPT/HCPCS: 36415; 80053; 80074; 82306; 84443; 84550; 85025; 85652; 86038; 86140; 86200; 86430

== ENCOUNTER 2023-04-15 11:45 | Outpatient (CLI) | payer OTHER, SELFPAY ==
[2023-04-15 12:06] LABS: Basophils Absolute Auto 0.07 K/mm3 (0.00-0.10); Eosinophils Absolute Auto 0.23 K/mm3 (0.02-0.50); Eosinophils Percent Auto 3.3 % (1.0-6.0); Immature Granulocyte Absolute 0.01 K/mm3 (0.00-0.00); Immature Granulocyte Percent A 0.1 % (0.0-0.0); Lymphocytes Absolute Auto 1.93 K/mm3 (1.10-4.50); Lymphocytes Percent Auto 27.7 % (18.0-42.0); Mean Corpuscular HGB Conc 33.3 g/dL (32.0-36.0); Mean Corpuscular Hemoglobin 30.2 pg (27.0-31.0); Mean Corpuscular Volume 90.7 fL (78.0-102.0); Mean Platelet Volume 11.2 fl (9.2-11.8); Monocytes Absolute Auto 0.46 K/mm3 (0.10-0.90); Monocytes Percent Auto 6.6 % (2.0-11.0); Neutrophils Absolute Auto 4.3 K/mm3 (1.7-7.2); Neutrophils Percent Auto 61.3 % (50.0-70.0); Platelet Count Result 238 K/mm3 (150-420); Red Cell Distribution Width 12.7 % (11.6-14.4)
[2023-04-15 12:54] LABS: Alanine Aminotransferase 20 U/L (14-59); Albumin Level 3.6 g/dL (3.4-5.0); Alkaline Phosphatase 68 U/L (46-116); Anion Gap 11 mmol/L (8-16); Aspartate Amino Transferase 11 U/L (15-37); Bilirubin,Total 0.3 mg/dL (0.00-1.00); Blood Urea Nitrogen 12 mg/dL (7-18); Calcium 8.8 mg/dL (8.5-10.1); Carbon Dioxide 25 mmol/L (21-32); Chloride 107 mmol/L (98-108); Cholesterol 161 mg/dL (0-200); Estimated Glomerular Filt Rate 58; Glucose 111 mg/dL (70-99); HDL Direct 58 mg/dL (40-60); LDL Cholesterol Calculated 78 mg/dL (<130); Magnesium 1.7 mg/dL (1.8-2.4); Osmolality Calculated 296 mOsm/kg (285-295); Potassium 4.3 mmol/L (3.5-5.1); Sodium 143 mmol/L (136-145); Total Protein 6.3 g/dL (6.4-8.2); Triglycerides 125 mg/dL (0-150)
[2023-04-15 13:20] LABS: Thyroid Stimulating Hormone Reflex 1.76 u/IU/mL (0.36-3.74)
== END 2023-04-15 11:46 | disposition home or self-care (01) ==
LOC: CHSLAB 11:48
PROVIDERS: PCP Nurse Practitioner Family; Visit Provider Internal Medicine Cardiovascular Disease
DX: E78.5 Hyperlipidemia, unspecified (principal); I10 Essential (primary) hypertension; E78.00 Pure hypercholesterolemia, unspecified; R60.9 Edema, unspecified; I25.10 Atherosclerotic heart disease of native coronary artery without angina pectoris
CPT/HCPCS: 36415; 80053; 80061; 83735; 84443; 85025

== ENCOUNTER 2023-06-03 11:45 | Outpatient (CLI) | payer OTHER, SELFPAY ==
[2023-06-03 12:10] LABS: Hematocrit 38.4 % (35.0-49.0); Mean Corpuscular HGB Conc 33.9 g/dL (32.0-36.0); Mean Corpuscular Hemoglobin 30.7 pg (27.0-31.0); Mean Corpuscular Volume 90.6 fL (78.0-102.0); Mean Platelet Volume 10.4 fl (9.2-11.8); Platelet Count Result 247 K/mm3 (150-420); Red Blood Count 4.24 M/mm3 (4.20-5.40); Red Cell Distribution Width 12.1 % (11.6-14.4); White Blood Count 7.5 K/mm3 (4.8-10.8)
[2023-06-03 12:28] LABS: Albumin Level 3.5 g/dL (3.4-5.0); Anion Gap 8 mmol/L (8-16); Blood Urea Nitrogen 15 mg/dL (7-18); Calcium 8.8 mg/dL (8.5-10.1); Carbon Dioxide 25 mmol/L (21-32); Chloride 106 mmol/L (98-108); Estimated Glomerular Filt Rate 58; Glucose 136 mg/dL (70-99); Osmolality Calculated 290 mOsm/kg (285-295); Phosphorus 2.8 mg/dL (2.6-4.7); Potassium 4.8 mmol/L (3.5-5.1); Sodium 139 mmol/L (136-145)
[2023-06-03 13:15] LABS: Creatinine Urine 119.08 mg/dL (40-278); Total Protein Urine Random 13.8 mg/dL (0.0-11.9); Ur Ttl Prot Creatinine Ratio 0.12 mg/mg (0-0.20)
[2023-06-09 12:33] LABS: Vitamin D 25 Hydroxy 70 ng/mL (30-100)
[2023-06-09 19:22] LABS: Parathyroid Intact 77 pg/mL (14-64)
== END 2023-06-03 11:46 | disposition home or self-care (01) ==
LOC: CHSLAB 11:47
PROVIDERS: PCP Nurse Practitioner Family; Visit Provider Internal Medicine Nephrology
DX: E67.3 Hypervitaminosis D (principal); N18.31 Chronic kidney disease, stage 3a
CPT/HCPCS: 36415; 80069; 82306; 82570; 83970; 84156; 85027

== ENCOUNTER 2023-06-04 14:29 | Emergency (ER) | payer OTHER, SELFPAY ==
--- NOTE | ~2023-06-04 | XR_ITS ---
EXAMINATION: XR hand LT min 3V DATE: 06/04/2023 15:27 INDICATION: Pain at the second digit of the left hand TECHNIQUE: Posteroanterior, oblique and lateral views of the left hand were obtained. COMPARISON: 12/04/2021 FINDINGS: Bone alignment is normal. No fracture. Mild polyarticular osteoarthritis at the first carpal metacarp al, first metacarpophalangeal and multiple interphalangeal joints with distal predominance. No erosio ns to suggest inflammatory arthritis. Soft tissue swelling at the second proximal interphalangeal pina nt and about the proximal phalanx. IMPRESSION: 1. 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 No acute osseous abnormality. Reviewed, dictated and finalized at location A. IMPRESSION: 1. 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 No acute osseous abnorma lity.
[2023-06-04 14:33] VITALS: BP 127/68; PULSE 82; RESP 17; TEMP 36.7; O2SAT 98
--- NOTE | 2023-06-04 14:36 | ED.EXTPRO ---
HPI - Extremity Problem General Chief complaint: Extremity Problem,Nontraumatic Stated complaint: finger pain Time Seen by Provider: 06/04/23 14:33 Source: patient Mode of arrival: ambulatory Limitations: no limitations History of Present Illness HPI Narrative: 52-year-old female with a history of diabetes mellitus, dyslipidemia, bipolar 1, hypertension, gout presents to the ER with a 1 day history of -- pain and swelling of left index finger PIP. It is tender to touch with decreased range of motion. -- History of chronic arthritis involving the lower back and the peripheral arthritis. No fever or chills. No eye symptoms. No urinary symptoms. MD Complaint: other ( Left hand index finger swelling.) Onset (ago): day(s) ( One day) Pain Consistency: constant Location: left Quality: aching Radiation: none Relieving factors: immobilization Associated symptoms: denies other symptoms Related Data Home Medications Medication Instructions Recorded Confirmed dulaglutide 1.5 mg/0.5 mL 1.5 mg subcut WEEKLY 01/30/20 06/04/23 subcutaneous pen injector ([facility]) aspirin 81 mg chewable tablet 81 mg PO DAILY 02/23/22 06/04/23 estradiol 2 mg tablet 1 tablet PO DAILY 02/23/22 06/04/23 gabapentin 300 mg capsule 300 mg PO TID 02/23/22 06/04/23 magnesium oxide 400 mg PO DAILY 02/23/22 06/04/23 omega 0-mob-iza-fish oil 1,000 mg 1 cap PO DAILY 02/23/22 06/04/23 (120 mg-180 mg) capsule (Fish Oil) oxycodone 5 mg tablet 5 mg PO Q6H PRN Pain 02/23/22 06/04/23 fluticasone propionate 50 2 spray intranasal BID 06/24/22 06/04/23 mcg/actuation nasal spray,suspension cariprazine 1.5 mg capsule 1.5 mg PO DAILY 06/04/23 06/04/23 (Vraylar) hydrocodone bitartrate 30 mg 30 mg PO DAILY 06/04/23 06/04/23 tablet,crush resist,extended rel. 24hr ([facility]) methylphenidate HCl 54 mg 1 mg PO DAILY 06/04/23 06/04/23 tablet,extended release 24 hr tizanidine 4 mg tablet 1 mg PO Q6-8H PRN Muscle Spasm 06/04/23 06/04/23 Allergies Allergy/AdvReac Type Severity Reaction Status Date / Time prochlorperazine Allergy Intermediate Other Verified 06/04/23 14:30 Review of Systems Review of Systems: All systems reviewed & are unremarkable except as noted in HPI and below Constitutional: Constitutional: Reports as per HPI and Reports no additional constitutional complaints Eyes: Eyes: Reports as per HPI and Reports no additional eye complaints ENT: Reports system reviewed and no additional complaints, except as documented and Reports as per HPI Cardiovascular: Cardiovascular: Reports as per HPI and Reports no additional cardiovascular complaints Respiratory: Respiratory: Reports as per HPI and Reports no additional respiratory complaints Gastrointestinal: Gastrointestinal: Reports as per HPI and Reports no additional gastrointestinal complaints Genitourinary: Genitourinary: Reports no additional female genitourinary complaints and Reports as per HPI Musculoskeletal: Musculoskeletal: Reports no additional musculoskeletal complaints and Reports as per HPI Comments: history of chronic joint pains. She follows up with the home housekeeper and has had extensive workup all of which has been negative. She has had a negative POPEYE, rheumatoid factor and hepatitis panel. Integumentary/Breasts: Skin/Breast: Reports system reviewed and no additional complaints, except as docu and Reports as per HPI Neurologic: Reports system reviewed and no additional complaints, except as documented and Reports as per HPI Psychiatric: Psychiatric: Reports no additional psychiatric complaints and Reports as per HPI Endocrine: Endocrine: Reports no additional endocrine complaints and Reports as per HPI Hematologic/Lymphatic: Hematologic/Lymphatic: Reports no additional hematologic/lymphatic complaints and Reports as per HPI Allergic/Immunologic: Allergic/Immunologic: Reports no additional allergic/immunologic complaints and Reports as per HPI [facility] Past
[2023-06-04 16:26] LABS: Erythrocyte Sedimentation Rate 13 mm/hr (0-20)
[2023-06-04 16:55] VITALS: BP 130/74; PULSE 81; RESP 20; TEMP 36.9; O2SAT 99
[2023-06-04] MEDS: KETOROLAC 30 MG/ML VIAL (*BKC) IM (16:58)
[2023-06-04] MEDS: methylPREDNISolone SOD SUCC 125 MG VIAL IM (16:59)
[2023-06-04 17:18] VITALS: BP 130/74; PULSE 81; RESP 20; TEMP 36.9; O2SAT 99
[2023-06-04 18:05] LABS: CRP < 0.5 mg/dL (0.0-0.9)
[2023-06-04 18:06] LABS: Uric Acid 7.4 mg/dL (2.6-6.0)
[2023-06-09 07:09] LABS: Lyme Disease Ab (IgM), Blot Negative (Negative); Lyme Disease Ab(IgG), Blot Negative (Negative)
== END 2023-06-04 17:18 | disposition home or self-care (01) ==
PROVIDERS: Emergency Provider Internal Medicine Critical Care Medicine
DX: L08.9 Local infection of the skin and subcutaneous tissue, unspecified (principal); E11.9 Type 2 diabetes mellitus without complications; E78.5 Hyperlipidemia, unspecified; I10 Essential (primary) hypertension; Z79.899 Other long term (current) drug therapy; Z79.891 Long term (current) use of opiate analgesic; Z79.82 Long term (current) use of aspirin
CPT/HCPCS: 36415; 73130; 84550; 85652; 86140; 86617; 87491; 87591; 96372; 99284; J1885; J2930

== ENCOUNTER 2023-07-22 19:24 | Emergency (ER) | payer OTHER, SELFPAY ==
--- NOTE | ~2023-07-22 | CT_ITS ---
EXAMINATION: CT BRAIN W/O DATE: 07/22/2023 21:03 INDICATION: Blurred vision TECHNIQUE: Computed tomography (CT) of the head was performed without intravenous contrast. The dose- length product was 605.33 mGy-cm. Automated exposure control and iterative reconstruction technique w ere employed. COMPARISON: No prior studies for comparison. FINDINGS: Normal brain parenchymal volume for age. Normal parker-white differentiation. No acute intrac ranial hemorrhage, infarction, mass or mass effect. No ventriculomegaly or midline shift. Midline sagittal images demonstrate a normal corpus callosum, c raniovertebral junction and sella turcica. Basilar cisterns are patent. Paranasal sinuses and mastoids are pneumatized. No depressed skull fractures. IMPRESSION: 1. No acute intracranial abnormality. Reviewed, dictated and finalized at location A.
[2023-07-22 19:36] VITALS: BP 150/76; PULSE 88; RESP 18; TEMP 37; O2SAT 99
--- NOTE | 2023-07-22 20:47 | ED.EYEPROB ---
HPI - Eye Problem General Chief complaint: Eye Problems Stated complaint: Blurred Vision Time Seen by Provider: 07/22/23 19:46 Source: patient Mode of arrival: ambulatory Limitations: no limitations History of Present Illness HPI Narrative: patient is a 53-year-old female with multiple rheumatology diseases. she had a telephone call with her pairing machine operator today and they sent her to the emergency room for further evaluation due to her blurry vision. Patient has been having bilateral blurry vision for the past 3 days. She does have known early cataracts. She sees an executive director of marketing/ integrated specialist. No headache. Her blood pressure is not overly elevated. Her home blood sugars have been stable cording to her history. Her eye chart in the emergency room showed poor vision but it appears that this is likely her baseline. chief complaint: vision change Onset (ago): day(s) (3) Onset description: gradual Duration: constant and progressively worsening Location: both eyes Eye Symptoms: blurry vision Place: home Mechanism: none Severity: mild Severity scale (1-10): 4 Associated symptoms: none Treatments Prior to Arrival: none Related Data Home Medications Medication Instructions Recorded Confirmed dulaglutide 1.5 mg/0.5 mL 1.5 mg subcut WEEKLY 01/30/20 07/22/23 subcutaneous pen injector ([facility]) estradiol 2 mg tablet 1 tablet PO DAILY 02/23/22 07/22/23 gabapentin 300 mg capsule 300 mg PO TID 02/23/22 07/22/23 magnesium oxide 400 mg PO DAILY 02/23/22 07/22/23 oxycodone 5 mg tablet 5 mg PO Q6H PRN Pain 02/23/22 07/22/23 fluticasone propionate 50 2 spray intranasal BID 06/24/22 07/22/23 mcg/actuation nasal spray,suspension cariprazine 1.5 mg capsule 3 mg PO DAILY 06/04/23 07/22/23 (Vraylar) tizanidine 4 mg tablet 1 mg PO Q6-8H PRN Muscle Spasm 06/04/23 07/22/23 bupropion HCl 150 mg 24 hr tablet, 150 mg PO DAILY 07/22/23 07/22/23 extended release glimepiride 2 mg tablet 2 mg PO DAILY 07/22/23 07/22/23 hydroxychloroquine 200 mg tablet 200 mg PO DAILY 07/22/23 07/22/23 icosapent ethyl 1 gram capsule 1 g PO DAILY 07/22/23 07/22/23 methylphenidate HCl 36 mg 72 mg PO DAILY 07/22/23 07/22/23 tablet,extended release 24 hr rosuvastatin 20 mg tablet 20 mg PO DAILY 07/22/23 07/22/23 Allergies Allergy/AdvReac Type Severity Reaction Status Date / Time prochlorperazine Allergy Intermediate Other Verified 06/08/23 14:55 ciprofloxacin Allergy Rash Verified 07/22/23 19:58 Review of Systems Review of Systems: All systems reviewed & are unremarkable except as noted in HPI and below Constitutional: Constitutional: Reports no additional constitutional complaints Eyes: Eyes: Reports no additional eye complaints ENT: Reports system reviewed and no additional complaints, except as documented Cardiovascular: Cardiovascular: Reports no additional cardiovascular complaints Respiratory: Respiratory: Reports no additional respiratory complaints Gastrointestinal: Gastrointestinal: Reports no additional gastrointestinal complaints Genitourinary: Genitourinary: Reports no additional female genitourinary complaints Musculoskeletal: Musculoskeletal: Reports no additional musculoskeletal complaints Integumentary/Breasts: Skin/Breast: Reports system reviewed and no additional complaints, except as docu Neurologic: Reports system reviewed and no additional complaints, except as documented Psychiatric: Psychiatric: Reports no additional psychiatric complaints Endocrine: Endocrine: Reports no additional endocrine complaints Hematologic/Lymphatic: Hematologic/Lymphatic: Reports no additional hematologic/lymphatic complaints Allergic/Immunologic: Allergic/Immunologic: Reports no additional allergic/immunologic complaints PMFSH Past Medical History Medical History Anxiety Back pain Bipolar 1 disorder Depression Diabetes Hyperlipidemia Migraine Obesity Surgical
[2023-07-22 21:20] LABS: Basophils Absolute Auto 0.05 K/mm3 (0.00-0.10); Basophils Percent Auto 0.6 % (0.0-1.0); Eosinophils Absolute Auto 0.06 K/mm3 (0.02-0.50); Eosinophils Percent Auto 0.7 % (1.0-6.0); Hematocrit 38.3 % (35.0-49.0); Hemoglobin 12.9 g/dL (12.0-15.0); Immature Granulocyte Absolute 0.03 K/mm3 (0.00-0.00); Immature Granulocyte Percent A 0.4 % (0.0-0.0); Lymphocytes Absolute Auto 1.56 K/mm3 (1.10-4.50); Lymphocytes Percent Auto 19.1 % (18.0-42.0); Mean Corpuscular HGB Conc 33.7 g/dL (32.0-36.0); Mean Corpuscular Hemoglobin 31.5 pg (27.0-31.0); Mean Corpuscular Volume 93.6 fL (78.0-102.0); Mean Platelet Volume 10.8 fl (9.2-11.8); Monocytes Absolute Auto 0.47 K/mm3 (0.10-0.90); Monocytes Percent Auto 5.8 % (2.0-11.0); Neutrophils Percent Auto 73.4 % (50.0-70.0); Platelet Count Result 235 K/mm3 (150-420); Red Blood Count 4.09 M/mm3 (4.20-5.40); White Blood Count 8.2 K/mm3 (4.8-10.8)
[2023-07-22 21:38] LABS: Alanine Aminotransferase 26 U/L (14-59); Albumin Level 3.5 g/dL (3.4-5.0); Alkaline Phosphatase 59 U/L (46-116); Anion Gap 7 mmol/L (8-16); Aspartate Amino Transferase 12 U/L (15-37); Bilirubin,Total 0.3 mg/dL (0.00-1.00); Blood Urea Nitrogen 16 mg/dL (7-18); Calcium 9.2 mg/dL (8.5-10.1); Carbon Dioxide 30 mmol/L (21-32); Chloride 103 mmol/L (98-108); Estimated CRCL calculation 61 ml/min; Estimated Glomerular Filt Rate 53; Glucose 77 mg/dL (70-99); Osmolality Calculated 290 mOsm/kg (285-295); Potassium 4.3 mmol/L (3.5-5.1); Sodium 140 mmol/L (136-145); Total Protein 6.6 g/dL (6.4-8.2)
[2023-07-22 21:51] VITALS: BP 112/66; PULSE 74; RESP 16; TEMP 36.5; O2SAT 97
== END 2023-07-22 22:05 | disposition home or self-care (01) ==
PROVIDERS: Emergency Provider Emergency Medicine; PCP Nurse Practitioner Family
DX: H53.8 Other visual disturbances (principal); M79.0 Rheumatism, unspecified; E11.9 Type 2 diabetes mellitus without complications; E78.5 Hyperlipidemia, unspecified; F31.9 Bipolar disorder, unspecified; F41.9 Anxiety disorder, unspecified; E66.9 Obesity, unspecified; Z68.31 Body mass index [BMI] 31.0-31.9, adult; Z79.85 Long-term (current) use of injectable non-insulin antidiabetic drugs; Z79.891 Long term (current) use of opiate analgesic; Z79.84 Long term (current) use of oral hypoglycemic drugs
CPT/HCPCS: 36415; 70450; 80053; 85025; 99284

== ENCOUNTER 2023-12-02 11:36 | Outpatient (CLI) | payer OTHER, SELFPAY ==
--- NOTE | ~2023-12-02 | XR_ITS ---
Right Knee Technique: AP, lateral, and sunrise views were obtained. Clinical History: Pain Findings: No fracture or dislocation is seen. Osseous alignment is anatomic. Minimal patellar spurrin g noted. Soft tissues are unremarkable. No joint effusion is seen. Impression: Minimal patellar spurring. Reviewed, dictated and finalized at location . Impression: Minimal patellar spurring.
[2023-12-02 12:02] LABS: Hematocrit 39.1 % (35.0-49.0); Hemoglobin 13.2 g/dL (12.0-15.0); Mean Corpuscular HGB Conc 33.8 g/dL (32-36); Mean Corpuscular Hemoglobin 31.2 pg (27.0-31.0); Mean Corpuscular Volume 92.4 fL (78.0-102.0); Mean Platelet Volume 10.3 fl (9.2-11.8); Platelet Count Result 180 K/mm3 (150-420); Red Blood Count 4.23 M/mm3 (4.20-5.40); Red Cell Distribution Width 11.9 % (11.6-14.4); White Blood Count 8.8 K/mm3 (4.8-10.8)
[2023-12-02 12:46] LABS: Albumin Level 3.5 g/dL (3.4-5.0); Anion Gap 10 mmol/L (8-16); Blood Urea Nitrogen 12 mg/dL (7-18); Calcium 8.3 mg/dL (8.5-10.1); Carbon Dioxide 28 mmol/L (21-32); Chloride 103 mmol/L (98-108); Estimated Glomerular Filt Rate > 60; Glucose 161 mg/dL (70-99); Osmolality Calculated 294 mOsm/kg (285-295); Phosphorus 3.1 mg/dL (2.6-4.7); Potassium 4.1 mmol/L (3.5-5.1); Sodium 141 mmol/L (136-145)
[2023-12-02 13:28] LABS: Creatinine Urine 214.45 mg/dL (40-278); Total Protein Urine Random 43.4 mg/dL (0.0-11.9)
[2023-12-05 18:56] LABS: Vitamin D 25 Hydroxy 66 ng/mL (30-100)
[2023-12-06 17:02] LABS: Parathyroid Intact 116 pg/mL (14-64)
== END 2023-12-02 11:37 | disposition home or self-care (01) ==
PROVIDERS: PCP Family Medicine; Visit Provider Internal Medicine Nephrology
DX: E67.3 Hypervitaminosis D (principal); N18.31 Chronic kidney disease, stage 3a; M13.0 Polyarthritis, unspecified; D69.2 Other nonthrombocytopenic purpura; M76.891 Other specified enthesopathies of right lower limb, excluding foot
CPT/HCPCS: 36415; 73562; 80069; 82306; 82570; 83970; 84156; 85027; 88305

== ENCOUNTER 2023-12-03 03:33 | Emergency (ER) | payer OTHER, SELFPAY ==
[2023-12-03 03:38] VITALS: BP 142/71; PULSE 90; RESP 18; TEMP 36.2; O2SAT 97
[2023-12-03] MEDS: TRIAMCINOLONE ACET INJ SUSP 50 MG/5 ML VIAL 40 MG IM (04:09)
[2023-12-03] MEDS: LIDO 1%/EPINEPHRINE 1:100,000 20 ML VIAL INFILTRATE (04:10)
[2023-12-03] MEDS: LIDOCAINE HCL 1% LOCAL INJ 10 ML VIAL 5 ML XX (04:10)
--- NOTE | 2023-12-03 04:22 | ED.GENADULT ---
HPI - General Adult General Chief complaint: Extremity Problem,Nontraumatic Stated complaint: knee pain Time Seen by Provider: 12/03/23 03:41 History of Present Illness HPI narrative: Niles presented to clinic with right knee pain and swelling for a couple days. An outpatient radiograph done yesterday showed only minimal patella spurring. Since being seen in the office it has become more swollen and painful. No new trauma, injury, fever, erythema or systemic symptoms. Related Data Home Medications Medication Instructions Recorded Confirmed dulaglutide 1.5 mg/0.5 mL 1.5 mg subcut WEEKLY 01/30/20 08/31/23 subcutaneous pen injector (Trulicity) estradiol 2 mg tablet 1 tablet PO DAILY 02/23/22 08/31/23 gabapentin 300 mg capsule 300 mg PO TID 02/23/22 08/31/23 magnesium oxide 400 mg PO DAILY 02/23/22 08/31/23 cariprazine 1.5 mg capsule 3 mg PO DAILY 06/04/23 08/31/23 (Vraylar) bupropion HCl 150 mg 24 hr tablet, 150 mg PO DAILY 07/22/23 08/31/23 extended release glimepiride 2 mg tablet 2 mg PO DAILY 07/22/23 08/31/23 methylphenidate HCl 36 mg 72 mg PO DAILY 07/22/23 08/31/23 tablet,extended release 24 hr (Concerta) rosuvastatin 20 mg tablet 20 mg PO DAILY 07/22/23 08/31/23 icosapent ethyl 1 gram capsule 2 g PO BID 12/02/23 Allergies Allergy/AdvReac Type Severity Reaction Status Date / Time prochlorperazine Allergy Severe Other Verified 12/03/23 03:37 ciprofloxacin Allergy Mild Rash Verified 12/03/23 03:37 Review of Systems Review of Systems: All systems reviewed & are unremarkable except as noted in HPI and below PMFSH Past Medical History Medical History Anxiety Back pain Bipolar 1 disorder Depression Diabetes Hyperlipidemia Migraine Obesity Surgical History Surgical History H/O: hysterectomy History of carpal tunnel release History of foot surgery History of left knee surgery Hx of cholecystectomy Family History Family History Other Family history of malignant neoplasm Hypertension Social History Social History Smoking status: Never smoker Tobacco type: cigarettes Second hand tobacco smoke exposure: No Alcohol intake: never Drinks per week: 1 Alcohol use details: rare occasional use Substance use: never Substance use type: does not use Other substance usage details: medical marijuanna Lack of Transportation: No Lack of Food: Never True Current Housing: I Have Housing Concerned About Future Housing: No Difficulty Paying Gas/Electric Bills: Decline to Answer Difficulty Paying for Meds: Decline to Answer Currently Unemployed: No Education: High School Diploma/GED Living arrangements: alone Gender identity (if verbalized by the patient): Female Spiritual care concerns: No Exam Const: General: cooperative, healthy appearing, comfortable, no acute distress, well developed, alert, awake and Physically active Orientation/consciousness: oriented to person, oriented to place and oriented to time HENMT: Head: normal to inspection, normocephalic and atraumatic Ears: hearing grossly normal bilaterally and external ears normal Face/Nose/Sinus: Normal external nose present Eyes: General: appearance normal, both eyes and all related structures Periorbital: periorbital findings normal Sclera: sclerae normal Pupils: Equal, round and reactive pupils present Neck: Neck: normal visual inspection Chest: Chest palpation & inspection: normal inspection of the chest Resp: Effort & Inspection: normal respiratory effort, able to speak in complete sentences and no respiratory distress Skin: General skin exam: normal color and no rashes or lesions noted Neuro: General: oriented to person, oriented to place and oriented to time Crania
--- NOTE | 2023-12-03 04:25 | PC.NURSE ---
Pt right knee dressed with 4x4 gauze and coban
== END 2023-12-03 04:35 | disposition home or self-care (01) ==
PROVIDERS: Emergency Provider Family Medicine; PCP Family Medicine
DX: M25.461 Effusion, right knee (principal); E78.5 Hyperlipidemia, unspecified; E11.9 Type 2 diabetes mellitus without complications
CPT/HCPCS: 20610; 96372; 99283; J3301

== ENCOUNTER 2023-12-26 10:59 | Outpatient (CLI) | payer OTHER, SELFPAY ==
--- NOTE | ~2023-12-26 | XR_ITS ---
Cervical Spine: AP, lateral, open-mouth views Clinical History: Pain, surgical history COMPARISON: 323 Findings: The normal lordotic curve is maintained. Stable anterior fusion from C5 to C7. There is adv anced degenerative disc narrowing at C4-C5. There is minimal grade 1 anterolisthesis of C2 over C3. S table facet joint arthropathy. Pre-vertebral soft tissues are unremarkable. Impression: Stable degenerative spondylosis, anterior fusion from C5 to C7. Minimal grade 1 anterolisthesis of C2 over C3. Reviewed, dictated and finalized at location M. Impression: Stable degenerative spondylosis, anterior fusion from C5 to C7. Minimal grade 1 anterolisthesis of C2 over C3.
--- NOTE | ~2023-12-26 | XR_ITS ---
Lumbosacral Spine: AP and lateral views Clinical History: Pain COMPARISON: 323 Findings: The normal lordotic curve is maintained. Stable posterior fusion from L4 through S1, bilate ral rods and transpedicular screws present. Stable interbody fusion devices at the L4-L5 and L5, and 1 disc spaces. Stable probable anterolisthesis of L5 over S1. There is moderate facet arthropathy the upper lumbar spine. The sacroiliac joints are normally outlined. Impression: Stable postoperative change from L4 through S1, with associated anterolisthesis of L5 over S1. Reviewed, dictated and finalized at location M. Impression: Stable postoperative change from L4 through S1, with associated anterolisthesis of L5 over S1.
== END 2023-12-26 11:00 | disposition home or self-care (01) ==
LOC: CHSLAB 11:02 → CHSIMG 11:12
PROVIDERS: PCP Family Medicine; Visit Provider Pain Medicine Interventional Pain Medicine
DX: M54.17 Radiculopathy, lumbosacral region (principal); M54.12 Radiculopathy, cervical region; M43.17 Spondylolisthesis, lumbosacral region; Z98.1 Arthrodesis status
CPT/HCPCS: 72040; 72100

== ENCOUNTER 2024-01-10 07:57 | Outpatient (RCR) | payer OTHER, SELFPAY ==
--- NOTE | 2024-01-10 10:13 | PTOPEVDC ---
Assessment and note entered by Cedrick Chu, PT Thank you for referring Niles Croft to [facility].? An evaluation has been completed. No further treatment is needed. Evaluation Information Assessment Status Evaluation/Discharge Diagnosis Abnormalities of gait and mobility, BPPV, Neuropathy Onset Approximately 6 months Subjective Information Patient reports that she has her own world when it comes to her body. At times she feels like she is buzzed drunk where she feels relaxed but unbalanced at the same time. Reports that she retired recently and does not pay much attention to the dates. Reports that she does get dizziness and spinning at times, most often when she is getting up from sleep to go to the bathroom. Denies any falls due to dizziness. She has not recognized any patterns at this time related to her dizziness. Reports that she has pain throughout her body and it is hard to isolate specific times. Reports history of diabetes which she blames some of her vision issues on. She has been on Gabapentin for over a year and reports some nerve damage in yajaira feet. Reports that she has migraines but cannot directly relate them to any pattern. Reported Pain Level Pain Score 0: Self Report Assessment PT Clinical Summary Patient was negative for BPPV or vestibular deficits at this time. She did show some difficulty with proprioceptive activity this date. Gerard is currently enrolled in PT at [facility] for her hip strength and knee per report and was encouraged to transition to proprioceptive activity. Patient reports that she feels she does not need therapy at this time to address todays issues and requested discharge. She is following up with Audiology and Neurology next month to help rule in or out possible conditions. Plan of Care PT Services Indicated Yes Treatment Frequency and Discharge at this time. No indications of BPPV. 27 Duration /28 scored on Tinetti fall examination on this date.
== END 2024-01-10 11:09 | disposition home or self-care (01) ==
LOC: ANHGOSHPT 07:57
PROVIDERS: PCP Family Medicine; Visit Provider Otolaryngology
DX: R26.89 Other abnormalities of gait and mobility (principal)
CPT/HCPCS: 97112; 97161

== ENCOUNTER 2024-01-20 07:15 | Outpatient (CLI) | payer OTHER, SELFPAY ==
[2024-01-20 07:56] LABS: Basophils Absolute Auto 0.08 K/mm3 (0.00-0.10); Basophils Percent Auto 1.1 % (0.0-1.0); Eosinophils Absolute Auto 0.21 K/mm3 (0.02-0.50); Hematocrit 39.4 % (35.0-49.0); Hemoglobin 13.2 g/dL (12.0-15.0); Immature Granulocyte Absolute 0.04 K/mm3 (0.00-0.00); Immature Granulocyte Percent A 0.6 % (0.0-0.0); Lymphocytes Absolute Auto 2.23 K/mm3 (1.10-4.50); Mean Corpuscular HGB Conc 33.5 g/dL (32-36); Mean Corpuscular Hemoglobin 30.8 pg (27.0-31.0); Mean Corpuscular Volume 92.1 fL (78.0-102.0); Mean Platelet Volume 10.9 fl (9.2-11.8); Monocytes Absolute Auto 0.62 K/mm3 (0.10-0.90); Monocytes Percent Auto 8.9 % (2.0-11.0); Neutrophils Absolute Auto 3.79 K/mm3 (1.70-7.20); Neutrophils Percent Auto 54.4 % (50.0-70.0); Platelet Count Result 226 K/mm3 (150-420); Red Blood Count 4.28 M/mm3 (4.20-5.40); Red Cell Distribution Width 12.1 % (11.6-14.4)
[2024-01-20 08:33] LABS: Ferritin 61 ng/mL (8-252); Iron 65 ug/dL (50-170); Percent Iron Saturation 18 % (12-57)
[2024-01-20 09:37] LABS: Thyroid Stimulating Hormone Reflex 2.63 u/IU/mL (0.36-3.74)
[2024-01-23 10:59] LABS: FSH 33.8 mIU/mL; LH 17.9 mIU/mL
== END 2024-01-20 07:16 | disposition home or self-care (01) ==
PROVIDERS: PCP Family Medicine; Visit Provider Family Medicine
DX: E03.9 Hypothyroidism, unspecified (principal); D50.9 Iron deficiency anemia, unspecified; L65.9 Nonscarring hair loss, unspecified; D64.9 Anemia, unspecified
CPT/HCPCS: 36415; 82728; 83001; 83002; 83540; 83550; 84443; 85025

== ENCOUNTER 2024-01-27 10:40 | Outpatient (CLI) | payer OTHER, SELFPAY | END 2024-01-27 10:41 | disposition home or self-care (01) | PROVIDERS: PCP Family Medicine; Visit Provider Otolaryngology | DX: H93.13 Tinnitus, bilateral (principal) | CPT/HCPCS: 92557; 92567 ==

== ENCOUNTER 2024-01-31 09:43 | Outpatient (CLI) | payer OTHER, SELFPAY ==
--- NOTE | ~2024-01-31 | CT_ITS ---
EXAMINATION: CT brain wo con DATE: 01/31/2024 10:00 INDICATION: Migraine, unspecified, not intractable. TECHNIQUE: Computed tomography (CT) of the head was performed without intravenous contrast. The mA wa s adjusted according to patient size. Iterative reconstruction technique was employed. The dose-lengt h product was 605.33 mGy-cm. COMPARISON: Head CT 07/22/2023 FINDINGS: There is no intracranial hemorrhage, acute infarction, or abnormal intracranial mass lesion . The ventricles are normal in size. The orbits are normal. The paranasal sinuses are clear. The mast oid air cells are normal. IMPRESSION: 1. Normal brain. Reviewed, dictated and finalized at location A. IMPRESSION: 1. Normal brain.
[2024-01-31 11:52] LABS: Thyroid Stimulating Hormone 3.95 uIU/mL (0.36-3.74); Vitamin B12 293 pg/mL (193-986)
[2024-02-02 05:24] LABS: Vitamin D 25 Hydroxy 59 ng/mL (30-100)
== END 2024-01-31 09:44 | disposition home or self-care (01) ==
PROVIDERS: PCP Family Medicine; Visit Provider Otolaryngology
DX: G43.909 Migraine, unspecified, not intractable, without status migrainosus (principal); L65 Other nonscarring hair loss; L29.9 Pruritus, unspecified; N18.31 Chronic kidney disease, stage 3a; E11.9 Type 2 diabetes mellitus without complications; E67.3 Hypervitaminosis D
CPT/HCPCS: 36415; 70450; 82306; 82607; 84439; 84443

== ENCOUNTER 2024-03-09 19:31 | Emergency (ER) | payer OTHER, SELFPAY ==
--- NOTE | ~2024-03-09 | XR_ITS ---
XR knee LT 3V Ordering provider: Oliver Chu MD History: . LEFT Knee pain w/ effusion. NO KNOWN INJURY. . Comparison: None. FINDINGS: BONES: No acute fracture or dislocation. JOINT SPACES: Normal. SOFT TISSUES: Fluid in the suprapatellar bursa. IMPRESSION: No acute osseous abnormality left knee. Reviewed, dictated and finalized at location A.
[2024-03-09 19:35] VITALS: BP 110/78; PULSE 109; RESP 18; TEMP 36.8; O2SAT 97
--- NOTE | 2024-03-09 19:56 | PC.NURSE ---
xray at the bedside
--- NOTE | 2024-03-09 20:09 | PC.NURSE ---
supplies gathered and placed at the bedside for Dr Chu
[2024-03-09] MEDS: LIDOCAINE HCL 1% LOCAL INJ 10 ML VIAL INFILTRATE (20:18)
[2024-03-09] MEDS: TRIAMCINOLONE ACET INJ 40 MG/ML VIAL IM (20:18)
--- NOTE | 2024-03-09 20:25 | ED.GENADULT ---
HPI - General Adult General Chief complaint: Extremity Injury, Lower Stated complaint: Knee Pain Time Seen by Provider: 03/09/24 19:46 History of Present Illness HPI narrative: This is a 53-year-old female with a history of chronic knee pain fibromyalgia presenting with left knee pain. Yesterday the patient noticed swelling of her left knee. No trauma that she is aware of. No erythema over the joint and no fevers. She is walking with crutches. Patient has had knee effusions in the past that required drainage last 1 being 3 months ago on the other knee. Related Data Home Medications Medication Instructions Recorded Confirmed dulaglutide 1.5 mg/0.5 mL 1.5 mg subcut WEEKLY 01/30/20 01/09/24 subcutaneous pen injector (Trulicity) estradiol 2 mg tablet 1 tablet PO DAILY 02/23/22 01/09/24 gabapentin 300 mg capsule 300 mg PO TID 02/23/22 01/09/24 magnesium oxide 400 mg PO DAILY 02/23/22 01/09/24 cariprazine 1.5 mg capsule 3 mg PO DAILY 06/04/23 01/09/24 (Vraylar) bupropion HCl 150 mg 24 hr tablet, 150 mg PO DAILY 07/22/23 01/09/24 extended release glimepiride 2 mg tablet 2 mg PO DAILY 07/22/23 01/09/24 methylphenidate HCl 36 mg 72 mg PO DAILY 07/22/23 01/09/24 tablet,extended release 24 hr (Concerta) rosuvastatin 20 mg tablet 20 mg PO DAILY 07/22/23 01/09/24 icosapent ethyl 1 gram capsule 2 g PO BID 12/02/23 01/09/24 Allergies Allergy/AdvReac Type Severity Reaction Status Date / Time prochlorperazine Allergy Severe Other Verified 01/18/24 07:40 ciprofloxacin Allergy Mild Rash Verified 01/18/24 07:40 PMF Past Medical History Medical History Anxiety Back pain Bipolar 1 disorder Depression Diabetes Hyperlipidemia Migraine Obesity Surgical History Surgical History H/O: hysterectomy History of carpal tunnel release History of foot surgery History of left knee surgery Hx of cholecystectomy Family History Family History Other Family history of malignant neoplasm Hypertension Social History Social History Smoking status: Never smoker Tobacco type: cigarettes Second hand tobacco smoke exposure: No Alcohol intake: never Drinks per week: 1 Alcohol use details: rare occasional use Substance use: never Substance use type: does not use Other substance usage details: medical marijuanna Do You Feel Safe in your Home?: Yes Lack of Transportation: No Lack of Food: Never True Current Housing: I Have Housing Concerned About Future Housing: No Difficulty Paying Gas/Electric Bills: Decline to Answer Difficulty Paying for Meds: Decline to Answer Currently Unemployed: No Education: High School Diploma/GED Living arrangements: alone Gender identity (if verbalized by the patient): Female Spiritual care concerns: No Exam Narrative: APPEARANCE: No apparent distress. Head: atraumatic. EYES: EOMI, NOSE: Atraumatic NECK: Trachea midline RESPIRATORY: No increased rate of breathing CARDIOVASCULAR: RRR, ABDOMINAL: Non-distended MUSCULOSKELETAl: Moderate knee effusion over the left knee, no erythema or warmth, antalgic gait. leg is neurovascularly intact NEURO: Alert. Moving 4/4 extremities SKIN:: Warm, dry. Normal color PSYCHIATRIC: Normal affect Course Vital Signs Vital signs: Vital Signs Temperature 98.2 F 03/09/24 19:35 Pulse Rate 109 H 03/09/24 19:35 Respiratory Rate 18 03/09/24 19:35 Blood Pressure 110/78 03/09/24 19:35 Pulse Oximetry 97 03/09/24 19:35 Oxygen Delivery Room Air 03/09/24 19:35 Temperature 98.2 F 03/09/24 19:35 Pulse Rate 109 H 03/09/24 19:35 Respiratory Rate 18 03/09/24 19:35 Blood Pressure 110/78 03/09/24 19:35 Pulse Oximetry 97 03/09/24 19:35 Oxygen Delivery Room Air
--- NOTE | 2024-03-09 21:06 | PC.NURSE ---
patient ambulated from room to the hallway with assistance from crutches. reports that ambulation is better than on arrival. ER provider saw patient ambulate
[2024-03-09 21:23] VITALS: BP 116/72; PULSE 88; RESP 18; O2SAT 98
[2024-03-12 20:56] LABS: Appearance Synovial Fluid Cloudy (Clear); Color Synovial Fluid Yellow (Colorless); Nucleated Cell Synovial Fluid 32125 /uL (0-200); Source Synovial Fluid Synovial fluid
[2024-03-12 20:57] LABS: Lymphocytes Synovial Fluid 1 %; Monocytes Synovial Fluid 8 %; Neutrophils Synovial Fluid 91 % (0-25)
[2024-03-14 17:23] LABS: Total Protein Synovial Fluid 3.2 g/dL (1.0-3.0)
[2024-03-14 17:50] LABS: Glucose Synovial Fluid 185 mg/dL
--- NOTE | 2024-03-15 12:57 | PC.NURSE ---
Final synovial fluid aerobic culture, no growth. Anaerobic culture still pending.
--- NOTE | 2024-03-16 12:25 | PC.NURSE ---
synovial fluid culture reviewed, no growth 5 days
== END 2024-03-09 21:23 | disposition home or self-care (01) ==
PROVIDERS: Emergency Provider Emergency Medicine; PCP Family Medicine
DX: M25.462 Effusion, left knee (principal); E78.5 Hyperlipidemia, unspecified; F41.9 Anxiety disorder, unspecified; F32.A Depression, unspecified
CPT/HCPCS: 20612; 73562; 82365; 82945; 84157; 87070; 87075; 87205; 89051; 89060; 96372; 99283; J3301

== ENCOUNTER 2024-06-11 08:31 | Outpatient (CLI) | payer OTHER, SELFPAY ==
[2024-06-11 08:42] LABS: Hematocrit 40.7 % (35.0-49.0); Mean Corpuscular HGB Conc 34.4 g/dL (32-36); Mean Corpuscular Volume 92.9 fL (78.0-102.0); Mean Platelet Volume 10.3 fl (9.2-11.8); Platelet Count Result 251 K/mm3 (150-420); Red Blood Count 4.38 M/mm3 (4.20-5.40); Red Cell Distribution Width 12.6 % (11.6-14.4); White Blood Count 8.4 K/mm3 (4.8-10.8)
[2024-06-11 09:28] LABS: Albumin Level 3.6 g/dL (3.4-5.0); Anion Gap 11 mmol/L (4-12); Blood Urea Nitrogen 8 mg/dL (7-18); Calcium 8.7 mg/dL (8.5-10.1); Carbon Dioxide 28 mmol/L (21-32); Chloride 101 mmol/L (98-108); Estimated Glomerular Filt Rate 49; Glucose 118 mg/dL (70-99); Osmolality Calculated 289 mOsm/kg (285-295); Phosphorus 3.6 mg/dL (2.6-4.7); Potassium 4.1 mmol/L (3.5-5.1); Sodium 140 mmol/L (136-145)
[2024-06-13 01:54] LABS: Parathyroid Intact 91 pg/mL (16-77)
[2024-06-22 14:29] LABS: Vitamin D 1,25 (OH)2 Total 22 pg/mL (18-72); Vitamin D2 1,25 (OH)2 <8 pg/mL; Vitamin D3 1,25 (OH)2 22 pg/mL
== END 2024-06-11 08:32 | disposition home or self-care (01) ==
PROVIDERS: PCP Internal Medicine Nephrology; Visit Provider Internal Medicine Nephrology
DX: E21.1 Secondary hyperparathyroidism, not elsewhere classified (principal); E11.9 Type 2 diabetes mellitus without complications
CPT/HCPCS: 36415; 80069; 82652; 83970; 85027

== ENCOUNTER 2024-06-20 08:58 | Outpatient (CLI) | payer OTHER, SELFPAY ==
[2024-06-20 10:05] LABS: Thyroid Stimulating Hormone Reflex 2.81 u/IU/mL (0.36-3.74)
== END 2024-06-20 08:59 | disposition home or self-care (01) ==
PROVIDERS: PCP Family Medicine; Visit Provider Family Medicine
DX: E03.9 Hypothyroidism, unspecified (principal)
CPT/HCPCS: 36415; 84443

== ENCOUNTER 2024-06-26 13:45 | Outpatient (CLI) | payer OTHER, SELFPAY ==
--- NOTE | ~2024-06-26 | XR_ITS ---
Left Hand Technique: PA and lateral views were obtained. Clinical History: Pain Findings: No acute fracture or dislocation is seen. Osseous alignment is anatomic. Joint spaces are p reserved. Soft tissues are unremarkable. Impression: Unremarkable left hand. Reviewed, dictated and finalized at location M. Impression: Unremarkable left hand.
--- NOTE | ~2024-06-26 | XR_ITS ---
Right wrist Technique: PA and lateral views were obtained. Clinical History: Pain Findings: No acute fracture or dislocation is seen. Osseous alignment is anatomic. Joint spaces are p reserved. Soft tissues are unremarkable. Impression: Unremarkable right wrist radiographs. Reviewed, dictated and finalized at location M. Impression: Unremarkable right wrist radiographs.
--- NOTE | ~2024-06-26 | XR_ITS ---
Right Hand Technique: PA and lateral views were obtained. Clinical History: Pain Findings: No acute fracture or dislocation is seen. Osseous alignment is anatomic. Joint spaces are p reserved. Soft tissues are unremarkable. Impression: Unremarkable right hand. Reviewed, dictated and finalized at location M. Impression: Unremarkable right hand.
--- NOTE | ~2024-06-26 | XR_ITS ---
Right ankle Technique: AP and lateral views were obtained. Clinical History: Pain Findings: No acute fracture or dislocation is seen. Osseous alignment is anatomic. Ankle mortise and other visualized joint spaces are preserved. Small plantar calcaneal spur. Soft tissues are otherwise unremarkable. Impression: Small plantar calcaneal spur. Reviewed, dictated and finalized at location . Impression: Small plantar calcaneal spur.
--- NOTE | ~2024-06-26 | XR_ITS ---
Right Knee Technique: AP and lateral views were obtained. Clinical History: Pain Findings: No fracture or dislocation is seen. Osseous alignment is anatomic. Minimal medial joint maurizio e spurring noted. Soft tissues are unremarkable. No joint effusion is seen. Impression: Minimal medial joint line spurring. Reviewed, dictated and finalized at [facility]. Impression: Minimal medial joint line spurring.
--- NOTE | ~2024-06-26 | XR_ITS ---
Left wrist Technique: PA and lateral views were obtained. Clinical History: Pain Findings: No acute fracture or dislocation is seen. Osseous alignment is anatomic. Joint spaces are p reserved. Soft tissues are unremarkable. Impression: Unremarkable left wrist radiographs. Reviewed, dictated and finalized at location M. Impression: Unremarkable left wrist radiographs.
--- NOTE | ~2024-06-26 | XR_ITS ---
Left Knee Technique: AP and lateral views were obtained. Clinical History: Joint pain Findings: No fracture or dislocation is seen. Osseous alignment is anatomic. Minimal degenerative spu rring present about the knee. Soft tissues are unremarkable. No joint effusion is seen. Impression: Minimal degenerative spurring. Reviewed, dictated and finalized at location . Impression: Minimal degenerative spurring.
--- NOTE | ~2024-06-26 | XR_ITS ---
Right Shoulder Technique: AP and scapular Y views were obtained. Clinical History: Pain Findings: No fracture or dislocation is seen. Osseous alignment is anatomic. The glenohumeral and acr omioclavicular joint spaces are preserved. Soft tissues are unremarkable. Impression: Unremarkable right shoulder radiographs. Reviewed, dictated and finalized at [facility]. Impression: Unremarkable right shoulder radiographs.
--- NOTE | ~2024-06-26 | XR_ITS ---
Right foot Technique: AP and lateral views were obtained. Clinical History: Pain Findings: No acute fracture or dislocation is seen. Osseous alignment is anatomic. Joint spaces are p reserved without erosive or degenerative change. Plantar calcaneal spur noted. Soft tissues are unrem arkable. Impression: Small plantar calcaneal spur. Reviewed, dictated and finalized at location . Impression: Small plantar calcaneal spur.
--- NOTE | ~2024-06-26 | XR_ITS ---
Left Shoulder Technique: AP and scapular Y views were obtained. Clinical History: Pain Findings: No fracture or dislocation is seen. Osseous alignment is anatomic. The glenohumeral and acr omioclavicular joint spaces are preserved. Soft tissues are unremarkable. Impression: Unremarkable left shoulder radiographs. Reviewed, dictated and finalized at [facility]. Impression: Unremarkable left shoulder radiographs.
--- NOTE | ~2024-06-26 | XR_ITS ---
Left ankle Technique: AP and lateral views were obtained. Clinical History: Pain Findings: No acute fracture or dislocation is seen. Osseous alignment is anatomic. Ankle mortise and other visualized joint spaces are preserved. Plantar calcaneal spur present. Soft tissues are otherwi se unremarkable. Impression: Small plantar calcaneal spur. Reviewed, dictated and finalized at location . Impression: Small plantar calcaneal spur.
[2024-06-26 14:07] LABS: Hematocrit 37.7 % (35.0-49.0); Mean Corpuscular HGB Conc 34.5 g/dL (32-36); Mean Corpuscular Hemoglobin 31.9 pg (27.0-31.0); Mean Corpuscular Volume 92.4 fL (78.0-102.0); Mean Platelet Volume 10.7 fl (9.2-11.8); Platelet Count Result 188 K/mm3 (150-420); Red Blood Count 4.08 M/mm3 (4.20-5.40); Red Cell Distribution Width 12.3 % (11.6-14.4); White Blood Count 7.1 K/mm3 (4.8-10.8)
[2024-06-26 14:22] LABS: Hemoglobin A1C 6.1 % (<5.7)
[2024-06-26 14:45] LABS: Rheumatoid Factor Screen Negative (Negative)
[2024-06-26 14:54] LABS: HIV 1 P24 AG Negative (Negative); HIV 1/2 AB Negative (Negative)
[2024-06-26 15:09] LABS: Alanine Aminotransferase 26 U/L (14-59); Albumin Level 3.4 g/dL (3.4-5.0); Alkaline Phosphatase 64 U/L (46-116); Anion Gap 11 mmol/L (4-12); Aspartate Amino Transferase 21 U/L (15-37); Bilirubin,Total 0.2 mg/dL (0.00-1.00); Blood Urea Nitrogen 10 mg/dL (7-18); CRP < 0.5 mg/dL (0.0-0.9); Calcium 8.3 mg/dL (8.5-10.1); Carbon Dioxide 27 mmol/L (21-32); Chloride 101 mmol/L (98-108); Creatine Kinase 53 U/L (26-192); Estimated Glomerular Filt Rate 51; Folic Acid 18.6 ng/mL (8.6->20); Free T4 Free Thyroxine 0.85 ng/dL (0.76-1.46); Glucose 262 mg/dL (70-99); Magnesium 1.9 mg/dL (1.8-2.4); Osmolality Calculated 296 mOsm/kg (285-295); Potassium 3.9 mmol/L (3.5-5.1); Sodium 139 mmol/L (136-145); Thyroid Stimulating Hormone 2.25 uIU/mL (0.36-3.74); Total Protein 6.3 g/dL (6.4-8.2); Uric Acid 8.5 mg/dL (2.6-6.0); Vitamin B12 288 pg/mL (193-986)
[2024-06-26 15:11] LABS: Erythrocyte Sedimentation Rate 12 mm/hr (0-20)
[2024-06-27 14:49] LABS: Hepatitis C RNA, Quant PCR <15 NOT DETECTED IU/mL (NOT DETECTED)
[2024-06-28 03:18] LABS: Creatinine, Random Urine 38 mg/dL (20-275); Total Prot/Creat ratio mg/mg 0.158 (0.024-0.184); Total Protein/Creatinine Ratio 158 mg/g creat (24-184)
[2024-06-28 04:29] LABS: Vitamin D 25 Hydroxy 43 ng/mL (30-100)
[2024-06-29 11:48] LABS: Vitamin B6 3.9 ng/mL (2.1-21.7)
[2024-06-29 15:23] LABS: Cyclic Citrullinated Peptide <16 UNITS
[2024-06-29 19:53] LABS: Vitamin B1 8 nmol/L (8-30)
[2024-07-01 10:53] LABS: Immunofixation, Serum Normal pattern.
[2024-07-02 11:27] LABS: Reference Lab Test Name urine kapp/lambda
[2024-07-05 10:38] LABS: Albumin 3.8 g/dL (3.8-4.8); Alpha 1 Globulin 0.3 g/dL (0.2-0.3); Alpha 2 Globulin 0.7 g/dL (0.5-0.9); Beta 1 Globulin 0.5 g/dL (0.4-0.6); Gamma Globulin 0.6 g/dL (0.8-1.7)
== END 2024-06-26 13:46 | disposition home or self-care (01) ==
LOC: CHSLAB 13:47
PROVIDERS: PCP Family Medicine; Visit Provider Internal Medicine Rheumatology
DX: Z13.1 Encounter for screening for diabetes mellitus (principal); R73.09 Other abnormal glucose; E55.9 Vitamin D deficiency, unspecified; E53.8 Deficiency of other specified B group vitamins; Z51.81 Encounter for therapeutic drug level monitoring; G62.9 Polyneuropathy, unspecified; R53.83 Other fatigue; M19.90 Unspecified osteoarthritis, unspecified site; E83.42 Hypomagnesemia; M77.32 Calcaneal spur, left foot; M77.31 Calcaneal spur, right foot
CPT/HCPCS: 36415; 73030; 73100; 73120; 73560; 73600; 73620; 80053; 82306; 82550; 82570; 82607; 82746; 83036; 83521; 83735; 84155; 84156; 84165; 84166; 84207; 84425; 84439; 84443; 84550; 85027; 85652; 86038; 86039; 86140; 86200; 86334; 86335; 86430; 87522; 87806

== ENCOUNTER 2024-07-05 09:54 | Outpatient (CLI) | payer OTHER, SELFPAY ==
[2024-07-10 10:04] LABS: Homocysteine 6.9 umol/L (<10.4)
[2024-07-10 18:54] LABS: Methylmalonic Acid 594 nmol/L (55-335)
== END 2024-07-05 09:55 | disposition home or self-care (01) ==
LOC: CHSLAB 09:55
PROVIDERS: PCP Family Medicine; Visit Provider Internal Medicine Rheumatology
DX: E53.8 Deficiency of other specified B group vitamins (principal)
CPT/HCPCS: 36415; 83090; 83921

== ENCOUNTER 2024-07-26 12:33 | Outpatient (CLI) | payer OTHER, SELFPAY ==
[2024-07-26 12:47] LABS: Basophils Absolute Auto 0.05 K/mm3 (0.00-0.10); Basophils Percent Auto 0.4 % (0.0-1.0); Eosinophils Absolute Auto 0.09 K/mm3 (0.02-0.50); Eosinophils Percent Auto 0.8 % (1.0-6.0); Hematocrit 34.8 % (35.0-49.0); Hemoglobin 12.3 g/dL (12.0-15.0); Immature Granulocyte Absolute 0.06 K/mm3 (0.00-0.00); Immature Granulocyte Percent A 0.5 % (0.0-0.0); Lymphocytes Absolute Auto 1.75 K/mm3 (1.10-4.50); Lymphocytes Percent Auto 15.5 % (18.0-42.0); Mean Corpuscular HGB Conc 35.3 g/dL (32-36); Mean Corpuscular Hemoglobin 32.2 pg (27.0-31.0); Mean Corpuscular Volume 91.1 fL (78.0-102.0); Monocytes Absolute Auto 0.84 K/mm3 (0.10-0.90); Monocytes Percent Auto 7.4 % (2.0-11.0); Neutrophils Absolute Auto 8.51 K/mm3 (1.70-7.20); Neutrophils Percent Auto 75.4 % (50.0-70.0); Platelet Count Result 219 K/mm3 (150-420); Red Blood Count 3.82 M/mm3 (4.20-5.40); Red Cell Distribution Width 11.9 % (11.6-14.4); White Blood Count 11.3 K/mm3 (4.8-10.8)
[2024-07-26 13:16] LABS: Hemoglobin A1C 6.1 % (<5.7)
[2024-07-26 13:35] LABS: Creatinine Urine 165.84 mg/dL (40-278); MALB Creatinine Ratio 11.4 mg/g (0-30)
[2024-07-26 14:03] LABS: Alkaline Phosphatase 77 U/L (46-116); Anion Gap 11 mmol/L (4-12); Blood Urea Nitrogen 10 mg/dL (7-18); Calcium 8.6 mg/dL (8.5-10.1); Carbon Dioxide 27 mmol/L (21-32); Chloride 105 mmol/L (98-108); Estimated Glomerular Filt Rate 59; Glucose 181 mg/dL (70-99); Osmolality Calculated 300 mOsm/kg (285-295); Potassium 3.5 mmol/L (3.5-5.1); Sodium 143 mmol/L (136-145)
[2024-07-26 14:15] LABS: Bilirubin,Total 0.3 mg/dL (0.00-1.00); Total Protein 6.2 g/dL (6.4-8.2)
[2024-07-26 14:27] LABS: Alanine Aminotransferase 23 U/L (14-59); Aspartate Amino Transferase < 10 U/L (15-37)
== END 2024-07-26 12:34 | disposition home or self-care (01) ==
LOC: CHSLAB 12:35
PROVIDERS: PCP Family Medicine; Visit Provider Family Medicine
DX: E11.9 Type 2 diabetes mellitus without complications (principal); R22.1 Localized swelling, mass and lump, neck
CPT/HCPCS: 36415; 80053; 82043; 83036; 85025

== ENCOUNTER 2024-07-26 13:39 | Outpatient (CLI) | payer OTHER, SELFPAY ==
--- NOTE | ~2024-07-26 | US_ITS ---
EXAMINATION: US soft tissue head and neck DATE: 07/26/2024 13:53 INDICATION: Left neck mass. TECHNIQUE: Multiple grayscale and Doppler ultrasound images of the head and neck were obtained. COMPARISON: None FINDINGS: There are normal lymph nodes in the patient's area of concern in left neck. IMPRESSION: 1. No abnormal mass or lymphadenopathy in the patient's area of concern in left neck. Reviewed, dictated and finalized at location A. [employer]
== END 2024-07-26 13:40 | disposition home or self-care (01) ==
LOC: GOSHIMG 13:39
PROVIDERS: PCP Family Medicine; Visit Provider Family Medicine
DX: R22.1 Localized swelling, mass and lump, neck (principal)
CPT/HCPCS: 76536

== ENCOUNTER 2024-08-22 18:43 | Emergency (ER) | payer OTHER, SELFPAY ==
[2024-08-22 18:55] VITALS: BP 156/89; PULSE 82; RESP 16; TEMP 36.6; O2SAT 98
--- NOTE | 2024-08-22 18:56 | ED.GENADULT ---
HPI - General Adult General Chief complaint: Dental/Oral Stated complaint: sick case Time Seen by Provider: 08/22/24 18:56 Source: patient Mode of arrival: ambulatory Limitations: no limitations History of Present Illness HPI narrative: 54 YEARS OLD WHITE FEMALE CAME TO THE ED COMPLAINING OF SORENESS OF THE TONGUE SINCE YESTERDAY. PATIENT IS TELLING ME THAT SHE HAVE THRUSH AT LEAST 3 TIMES IN THE LEFT TIME IN THE PAST. HISTORY OF FIBROMYALGIA AND RHEUMATOID ARTHRITIS. PATIENT IS TELLING ME THAT SHE BEEN TAKEN MULTIPLE DIFFERENT ANTIBIOTICS IN THE LAST FEW WEEKS WHICH PROBABLY DROPPED HER IMMUNE SYSTEM. SHE DENIES DIFFICULTY SWALLOWING OR BREATHING. LAST USE OF FLONASE 1 WEEK AGO. SHE DENIES ANY FEVER OR CHILLS OR NAUSEA OR VOMITING OR CHEST PAIN OR TROUBLE BREATHING OR HEADACHE Related Data Home Medications Medication Instructions Recorded Confirmed dulaglutide 1.5 mg/0.5 mL 1.5 mg subcut WEEKLY 01/30/20 06/14/24 subcutaneous pen injector (Trulicity) estradiol 2 mg tablet 1 tablet PO DAILY 02/23/22 06/14/24 gabapentin 300 mg capsule 300 mg PO TID 02/23/22 06/14/24 magnesium oxide 400 mg PO DAILY 02/23/22 06/14/24 cariprazine 1.5 mg capsule 3 mg PO DAILY 06/04/23 06/14/24 (Vraylar) bupropion HCl 150 mg 24 hr tablet, 150 mg PO DAILY 07/22/23 06/14/24 extended release glimepiride 2 mg tablet 2 mg PO DAILY 07/22/23 06/14/24 methylphenidate HCl 36 mg 72 mg PO DAILY 07/22/23 06/14/24 tablet,extended release 24 hr (Concerta) rosuvastatin 20 mg tablet 20 mg PO DAILY 07/22/23 06/14/24 icosapent ethyl 1 gram capsule 2 g PO BID 12/02/23 06/14/24 clindamycin HCl 300 mg capsule mg PO 07/26/24 07/26/24 Allergies Allergy/AdvReac Type Severity Reaction Status Date / Time prochlorperazine Allergy Severe Other Verified 08/22/24 18:46 ciprofloxacin Allergy Mild Rash Verified 08/22/24 18:46 Review of Systems Review of Systems: All systems reviewed & are unremarkable except as noted in HPI and below PMFSH Past Medical History Medical History Anxiety Back pain Bipolar 1 disorder Chronic mixed headache syndrome Depression Diabetes Excessive daytime sleepiness Hyperlipidemia Migraine Obesity Surgical History Surgical History H/O: hysterectomy History of carpal tunnel release History of foot surgery History of left knee surgery Hx of cholecystectomy Family History Family History Other Family history of malignant neoplasm Hypertension Social History Social History Smoking status: Never smoker Tobacco type: cigarettes Second hand tobacco smoke exposure: No Alcohol intake: never Drinks per week: 1 Alcohol use details: rare occasional use Substance use: never Substance use type: does not use Other substance usage details: medical marijuanna Do You Feel Safe in your Home?: Yes Lack of Transportation: No Lack of Food: Never True Current Housing: I Have Housing Concerned About Future Housing: No Difficulty Paying Gas/Electric Bills: Decline to Answer Difficulty Paying for Meds: Decline to Answer Currently Unemployed: No Education: High School Diploma/GED Living arrangements: alone Gender identity (if verbalized by the patient): Female Spiritual care concerns: No Exam Narrative: GENERAL APPEARANCE: WELL-DEVELOPED, WELL-NOURISHED SKIN: NORMAL COLOR HEAD: NORMOCEPHALIC, NONTRAUMATIC EYES: CLEAR CONJUNCTIVA ENT: WHITE COAT ON THE TONGUE CONSISTENT WITH THRUSH NECK: SUPPLE, NONTENDER CHEST AND RESPIRATORY: AIRWAY PATENT, NO RESPIRATORY DISTRESS, NO ACCESSORY MUSCLE USE HEART: REGULAR RATE/RHYTHM NEUROLOGIC: ALERT AND ORIENTED ?3, CNC MILL PROGRAMMER IS NORMAL TESTED, NO GROSS MOTOR DEFICIT Course Vital Signs Vital signs: Vital Signs Oxygen Delivery Room Air 08/22/24 18:43 Oxygen Delivery Room Air 08/22/24 18:43 Medical Decision Making MDM Narrative Medical decision making narrative: PATIENT PRESENTS WITH SORENESS AND WHITE COAT OF THE TONGUE NOTICED YESTERDAY. VITAL SIGNS ARE STABLE DIFFERENTIAL DIAGNOSIS OROPHARYNGEAL CANDIDIASIS, SECONDARY TO POOR IMMUNE SYSTEM, HIV, AUTOIMMUNE DISEASE, MY PLAN TO DISCHARGE PATIENT ON NYSTATIN ORAL SUSPENSION AND FLUCONAZOLE. PATIENT WAS NOTIFIED FOLLOW-UP WITH HER FAMILY PHYSICIAN /CASTING MACHINE SET UP OPERATOR FOR FURTHER EVALUATION Differential Diagnosis Differential Diagnosis: ABOVE Vital Signs Vital Signs: Vital Signs Oxygen Delivery Room Air 12/04/24 18:43 Oxygen Delivery Room Air 08/22/24 18:43 Critical Care Time Critical Care Time Critical Care Time: No Discharge Plan Discharge Clinical Impression: Candidiasis of mouth Patient Disposition: Home, Self-Care Condition: Stable Instructions: Oral Candidiasis (ED) Additional Instructions: RETURN IF SYMPTOMS ARE WORSENING , CALL YOUR FAMILY PHYSICIAN FOR APPOINTMENT, TAKE TYLENOL NEEDED FOR ACHES AND PAIN, CONTINUE HOME MEDICATIONS. GARGLE YOUR MOUTH WITH WATER AFTER USING FLONASE Prescriptions: New nystatin 100,000 unit/mL suspension 1 ml PO QID Qty: 250 0RF Rx Instructions: swish and swallow fluconazole 150 mg tablet 100 mg PO DAILY Qty: 14 0RF Rx Instructions: as a single dose No Action Vraylar 1.5 mg capsule 3 mg PO DAILY glimepiride 2 mg tablet 2 mg PO DAILY methylphenidate HCl [Concerta] 36 mg tablet extended release 24hr 72 mg PO DAILY bupropion HCl 150 mg tablet extended release 24 hr 150 mg PO DAILY rosuvastatin 20 mg tablet 20 mg PO DAILY Trulicity 1.5 mg/0.5 mL pen injector 1.5 mg SUB-Q WEEKLY Patient Comments: PT TAKES TUESDAY, TUESDAY, OR TUESDAY fluticasone propionate 50 mcg/actuation spray,suspension 2 spray NASAL BID Qty: 96 3RF Rx Instructions: administer into each nostril mupirocin 2 % ointment 1 applic topical BID Qty: 22 3RF Rx Instructions: Intranasal clindamycin HCl 300 mg capsule PO icosapent ethyl 1 gram capsule 2 g PO BID estradiol 2 mg tablet 1 tablet PO DAILY gabapentin 300 mg Capsule 300 mg PO TID magnesium oxide 400 mg magnesium Tablet 400 mg PO DAILY montelukast 10 mg tablet 10 mg PO DAILY Qty: 90 3RF levothyroxine 50 mcg tablet 50 mcg PO DAILY Qty: 90 3RF furosemide 20 mg tablet See Rx Instructions .ROUTE .COMPLEX Qty: 90 3RF Dose Instruction: TAKE 1 TABLET BY MOUTH EVERY MORNING NEEDED FOR PITTING EDEMA Rx Instructions: TAKE 1 TABLET BY MOUTH EVERY MORNING NEEDED FOR PITTING EDEMA Follow-up/Referrals: Roland Rojas, [Primary Care Provider] - Stand Alone Forms: Work/School Release IP
--- NOTE | 2024-08-22 18:58 | PC.NURSE ---
patient report received from CHERYL Redding for continuation of care. Patient resting on stretcher with registration staff at bedside.
[2024-08-22] MEDS: FLUCONAZOLE 150 MG TABLET PO (19:20)
== END 2024-08-22 19:23 | disposition home or self-care (01) ==
LOC: CHSED 19:01
PROVIDERS: Emergency Provider Emergency Medicine; PCP Family Medicine
DX: B37.0 Candidal stomatitis (principal); E11.9 Type 2 diabetes mellitus without complications; E78.5 Hyperlipidemia, unspecified; F31.9 Bipolar disorder, unspecified; F41.9 Anxiety disorder, unspecified; E66.9 Obesity, unspecified; Z68.36 Body mass index [BMI] 36.0-36.9, adult; Z79.85 Long-term (current) use of injectable non-insulin antidiabetic drugs; Z79.84 Long term (current) use of oral hypoglycemic drugs
CPT/HCPCS: 99283; A9270

== ENCOUNTER 2024-10-17 16:18 | Emergency (ER) | payer OTHER, SELFPAY ==
--- NOTE | ~2024-10-17 | XR_ITS ---
EXAMINATION: XR hand RT min 3V DATE: 10/17/2024 16:53 INDICATION: Right hand pain. TECHNIQUE: 3 views of right hand were obtained. COMPARISON: Right hand radiographs 06/26/2024 FINDINGS: Alignment is normal. No fracture. There is mild osteoarthritis of first carpometacarpal pina nt, first-third metacarpophalangeal joints, and some of the interphalangeal joints. IMPRESSION: 1. Mild polyarticular osteoarthritis. Reviewed, dictated and finalized at location A. SPORTATION MANAGER
[2024-10-17 16:18] VITALS: BP 139/72; PULSE 84; RESP 16; TEMP 36.2; O2SAT 100
--- NOTE | 2024-10-17 16:23 | ED_ITS ---
HPI - Extremity Injury (Upper) General Chief Complaint: Extremity Injury, Upper Stated Complaint: hand swelling Time Seen by Provider: 10/17/24 16:20 Source: patient Mode of arrival: ambulatory Limitations: no limitations History of Present Illness HPI narrative: [age] year female with a history fibromyalgia, anxiety,bipolar, chronic low back pain, arthritis, rheumatoid arthritis, diabetes mellitus, dyslipidemia, right carpal tunnel syndrome status post surgery presents to the ED with a 2 day history of -- right wrist pain which radiates to the right thenar eminence and extends up the forearm. -- No paresthesias. Patient has decreased sensation over the thenar eminence. History of prior carpal tunnel surgery on the right hand. MD complaint: injury to: right Onset (ago): day(s) ( Two days) Other Extremity Injury: Right: hand and wrist Other injuries: none Handedness: right Severity: moderate Relieving factors: none Exacerbating factors: none Associated symptoms: denies other symptoms Related Data Home Medications ?Medication ?Instructions ?Recorded ?Confirmed ?Last Taken ?Type estradiol 2 mg tablet 1 tablet PO DAILY 02/23/22 09/04/24 Unknown History gabapentin 300 mg capsule 300 mg PO TID 02/23/22 09/04/24 03/04/22 History magnesium oxide 400 mg PO DAILY 02/23/22 09/04/24 03/01/22 History cariprazine 1.5 mg capsule 3 mg PO DAILY 06/04/23 09/04/24 Unknown History (Vraylar) bupropion HCl 150 mg 24 hr tablet, 150 mg PO DAILY 07/22/23 09/04/24 Unknown History extended release glimepiride 2 mg tablet 2 mg PO DAILY 07/22/23 09/04/24 Unknown History methylphenidate HCl 36 mg 72 mg PO DAILY 07/22/23 09/04/24 Unknown History tablet,extended release 24 hr (Concerta) rosuvastatin 20 mg tablet 20 mg PO DAILY 07/22/23 09/04/24 Unknown History icosapent ethyl 1 gram capsule 2 g PO BID 12/02/23 09/04/24 Unknown History cyanocobalamin (vitamin B-12) 1,000 mcg IM WEEKLY 09/04/24 09/04/24 Unknown History 1,000 mcg/mL injection solution Allergies Allergy/AdvReac Type Severity Reaction Status Date / Time prochlorperazine Allergy Severe Other Verified 10/17/24 16:24 ciprofloxacin Allergy Mild Rash Verified 10/17/24 16:24 Review of Systems Review of Systems: All systems reviewed & are unremarkable except as noted in HPI and below PMFSH Past Medical History Medical History Excessive daytime sleepiness Chronic mixed headache syndrome Obesity Depression Anxiety Back pain Hyperlipidemia Bipolar 1 disorder Diabetes Migraine Surgical History Surgical History History of foot surgery History of left knee surgery History of carpal tunnel release Hx of cholecystectomy H/O: hysterectomy Family History Family History Other Family history of malignant neoplasm Hypertension Social History Social History Smoking status: Never smoker Tobacco type: cigarettes Second hand tobacco smoke exposure: No Alcohol intake: never Drinks per week: 1 Alcohol use details: rare occasional use Substance use: never Substance use type: does not use Other substance usage details: medical marijuanna Do You Feel Safe in your Home?: Yes Lack of Transportation: No Lack of Food: Never True Current Housing: I Have Housing Concerned About Future Housing: No Difficulty Paying Gas/Electric Bills: Decline to Answer Difficulty Paying for Meds: Decline to Answer Currently Unemployed: No Education: High School Diploma/GED Living arrangements: alone Gender identity (if verbalized by the patient): Female Spiritual care concerns: No Exam Narrative: afebrile. Blood pressure stable. Const: General: healthy appearing and no acute distress Nutritional Appearance: well nourished Orientation/consciousness: patient oriented x3 Limitations: no limitations HENMT: Head: normal to inspection Ears: external ears normal Face/Nose/Sinus: Normal external nose present Face and sinus: normal facial exam Mouth: Yes Normal oral and palatal mucosa present Throat: posterior oropharynx normal Eyes: Conjunctivae: conjunctivae normal Pupils: Equal, round and reactive pupils present EOM: EOMs intact bilaterally Direct Ophthalmoscopy: no photophobia Neck: Neck: normal visual inspection and no lymphadenopathy Chest: Chest palpation & inspection: normal inspection of the chest Resp: Effort & Inspection: normal respiratory effort Auscultation: clear to auscultation bilaterally Cardio: Rate: regular rate Rhythm: regular rhythm GI: GI Palp: Yes Soft to palpation Other: No tenderness/rigidity /rebound : General: Yes no CVA tenderness Back/Spine/Pelvis: Back: no CVA tenderness Skin: General skin exam: normal color Rashes: no rashes Neuro: General: patient oriented x3, moves all extremities, no meningeal signs, no focal motor deficits and CN's II-XI intact bilaterally Cranial nerves: Yes Nystagmus not present Speech: normal speech Extrem: General: normal to inspection Other: right hand tenderness over the right wrist and the thenar eminence. Decreased sensation over the thenar eminence. Scar over the middle of the wrist from previous carpal tunnel surgery. Psych: Mental Status: mental status grossly normal Affect: normal affect Attitude: cooperative Course Course Emergency Course: Pain in the right wrist, thenar eminence and distal forearm with decreased sensation suggestive of carpal tunnel syndrome. x-ray revealed arthritis of the 1st carpometacarpal joint, arthritis of the 1st and the 3rd MP joints and other interphalangeal joints. On repeat examination the patient has a positive Phalen maneuver. She has tenderness over the right 1st carpometacarpal joint. Vital Signs Vital signs: Vital Signs Temperature 36.2 C L 10/17/24 16:18 Pulse Rate 84 10/17/24 16:18 Respiratory Rate 16 10/17/24 16:18 Blood Pressure 139/72 10/17/24 16:18 Pulse Oximetry 100 10/17/24 16:18 Oxygen Delivery Room Air 10/17/24 16:18 Temperature 36.2 C L 10/17/24 16:18 Pulse Rate 84 10/17/24 16:18 Respiratory Rate 16 10/17/24 16:18 Blood Pressure 139/72 10/17/24 16:18 Pulse Oximetry 100 10/17/24 16:18 Oxygen Delivery Room Air 10/17/24 16:18 MDM - Extremity Injury (Upper) MDM Narrative Medical decision making narrative: Hand pain secondary to arthritis/carpal tunnel Differential Diagnosis Differential diagnosis: Likely sprain and strain of wrist Medical Records Attestation: I reviewed the patient's medical records. Lab Data Attestation: I reviewed the patient's lab results. Discharge Plan Discharge Clinical Impression: Hand pain, right, Arthritis of carpometacarpal (CMC) joint of right thumb, Carpal tunnel syndrome on right Patient Disposition: Home, Self-Care Condition: Stable Instructions: Antibiotic Form, Osteoarthritis (ED), Carpal Tunnel Syndrome (DC) Patient Language: Armenian Prescriptions: New meloxicam 7.5 mg tablet 7.5 mg PO DAILY Qty: 14 0RF No Action Vraylar 1.5 mg capsule 3 mg PO DAILY glimepiride 2 mg tablet 2 mg PO DAILY methylphenidate HCl [Concerta] 36 mg tablet extended release 24hr 72 mg PO DAILY bupropion HCl 150 mg tablet extended release 24 hr 150 mg PO DAILY rosuvastatin 20 mg tablet 20 mg PO DAILY fluticasone propionate 50 mcg/actuation spray,suspension 2 spray NASAL BID Qty: 96 3RF Rx Instructions: administer into each nostril icosapent ethyl 1 gram capsule 2 g PO BID cyanocobalamin (vitamin B-12) 1,000 mcg/mL solution 1,000 mcg IM WEEKLY nystatin 100,000 unit/mL suspension 1 ml PO QID Qty: 250 0RF Rx Instructions: swish and swallow Ozempic 1 mg/dose (4 mg/3 mL) pen injector 1 mg subcut WEEKLY Qty: 3 0RF estradiol 2 mg tablet 1 tablet PO DAILY gabapentin 300 mg Capsule 300 mg PO TID magnesium oxide 400 mg magnesium Tablet 400 mg PO DAILY montelukast 10 mg tablet 10 mg PO DAILY Qty: 90 3RF levothyroxine 50 mcg tablet 50 mcg PO DAILY Qty: 90 3RF furosemide 20 mg tablet See Rx Instructions .ROUTE .COMPLEX Qty: 90 3RF Dose Instruction: TAKE 1 TABLET BY MOUTH EVERY MORNING NEEDED FOR PITTING EDEMA Rx Instructions: TAKE 1 TABLET BY MOUTH EVERY MORNING NEEDED FOR PITTING EDEMA Follow-up/Referrals: Roland Rojas DO [Primary Care Provider] - Time of Disposition: 17:16
[2024-10-17] MEDS: KETOROLAC 30 MG/ML VIAL (*BKC) IM (16:37)
--- OUTSIDE RECORDS SUMMARY | 2024-10-17 16:43 | XMS_ITS ---
Author Organization [facility] [employer] Address [facility] [address] [facility] [address] [place] [address] Care Team Providers Care Tree Specialist Name Role Phone Roland Rojas DO Primary Care Provider Unavail able Julian Cummings Unavailable [phone] REASON FOR VISIT Refill Medications Medication SIG (Take, Route, Frequency, Duration) Notes Start Date End Date Status Methylphenidate HCl ER 36 MG 2 tablet ev moshe morning Oral once a day for 30 days 08/28/2024 Active Social History Sex Assigned At : Social History Observation Description Sex Assigned At Female Encounters Encounter Location Date Provider Diagnosis [facility] [place] [id number] [facility] [address] [facility] [address] [place] [address] 08/28/2024 Julian Cummings Attention-deficit hyperactivity disorder, combined type F90.2 Assessments Encounter Date Diagnosis (ICD Code) Assessment Notes Treatment Notes Treatment Clinical Notes Section Notes 08/28/2024 Attention-deficit hyperactivity disorder, combined type (ICD-10 - F90.2) Plan Of Treatment Medication Medication Name Sig Start Date Stop Date Notes Methylphenidate HCl ER 36 MG 2 tablet ev moshe morning Oral once a day for 30 days 08/28/2024 Next Appt Details Provider Name:Julian shaw, 11/22/2024 01:15:00 PM, [address], [place], [address], Progress Notes * IZABELA PARRA GDOB:1969 (54 yo F)Acc No.[id number]:08/28/2024 Patient:?IZABELA PARRA :1970???Age:54 Y???Sex:Female Address:[address] [place], [place] [id number] * Refills? Start Methylphenidate HCl ER Tablet Extended Release, 36 MG, Oral, 60 Tablet, 2 tablet every morning, once a day, 30 days, Refills=0 Subjective: * Chief Complaints: * ???Refill * Medical History:? * Surgical History:? * Hospitalization/Major Diagno stic Procedure:? * Medications:? Objective: * Vitals:? * Physical Examination:? Assessment: * Assessment: 1.?Attention-deficit hyperac tivity disorder, combined type - F90.2 (Primary)??? Plan: * Treatment: * Procedure Codes:?ERX CONTROL LED SUBSTANCE ERX * true * Date:? Generated for Dilip brown/Elen/eTransmitting on:?10/17/2024 04:43 PM FOOT MITER OPERATOR
--- OUTSIDE RECORDS SUMMARY | 2024-10-17 16:43 | XMS_ITS | Encounter Summary ---
Author Organization [facility] Address [address] [place] [address] Care Team Providers Care Senior Buyer Planner Name Role Phone Radha Kaminski MYRON-ANGIO TECHNOLOGIST Primary Care Provider [phone] Harmony Mcrae MD Unavailable Encounter Details Date Type Department Care Team (Late st Contact Info) Description 06/20/2023 Lab Requisition [facility] - Derm[facility] Lab [address] [facility] [place] [id number] Andrzej Aguilar MD [address] [place] [address] Social History Tobacco Use Types Packs/Day Years Used Date Smoking Tobacco: Never Smokeless Tobacco: Never Alcohol Use Standard Drinks/Week Comments Never 0 (1 standard drink = 0.6 oz pur e alcohol) Sex and Gender Information Value Date Recorded Sex Assigned at Not on file Gender Identity Not on file Sexual Orientation Not on file documented as of this encounter Plan of Treatment Not on file documented as of this encounter Procedures Procedure Name Priority Date/Time Associated Diagnosis Comments DERMATOPATHOLOGY Routine 06/20/2023 12:0 0 AM CDT documented in this encounter Results * DERMATOPATHOLOGY (06/20/2023 12:00 AM CDT) Case Report Dermatopathology Report ? Case: [id number] ? Authorizing Provider: ??Andrzej Aguilar MD ?Collected: ? 06/20/2023 12:00 AM ? [facility] ? Received: ?06/21/2023 06:10 AM ? Pathologist: ? Elizabeth Santos, ? MD ? Specimen: ?Skin, right ant tib ? 3 4:35 PM CDT DERMATOPATHOLOGY LABORATORY Final Diagnosis Specimen A. SKIN, right ant tib: HEALING SKIN CHANGES, SUPERFICIAL PORTIONS OF (L90.5) PRESENT AT MARGIN (see microscopic description and comment) 3 4:35 PM CDT DERMATOPATHOLOGY LABORATORY Clinical History DF vs. R/O Neoplasm. Check Margins. 3 4:35 PM CDT DERMATOPATHOLOGY LABORATORY Gross Description Specimen A: Received is one formalin filled container labeled with the patient's name and designated right ant tib. The specimen consists of a shave biopsy measuring 7x5x1 mm. Jar 0. 3 4:35 PM CDT DERMATOPATHOLOGY LABORATORY Microscopic Description Specimen A. SKIN, right ant tib: There is epidermal hyperplasia beneath which there are vascular proliferation, fibroblasts, and an edematous stroma. BerEP4 stained sections do not highlight a tumor, supporting the above diagnosis. This lesion is present at the margin of the specimen. Additional deeper sections were obtained and reviewed. COMMENT: Given the superficial nature of the biopsy specimen, a deeper dermal process cannot be excluded. 3 4:35 PM CDT DERMATOPATHOLOGY LABORATORY Disclaimer An external and internal positive and negative controls are appropriate for the histochemical, immunohistochemical and immunofluorescence stain(s) in this case (if any), except where stated explicitly. The performance characteristics of the stain(s) cited in this report were developed and its performance characteristic determined by the Dermatopathology Laboratory at [facility], directed by Dr. Jean-Pierre Miller. These tests need not be, and therefore are not, approved by the [place] Food and Drug Administration. The tests are used for clinical purposes. Billing Codes Specimen Charges Stain Charges 57494 1 97069 1 3 4:35 PM CDT DERMATOPATHOLOGY LABORATORY Embedded Images 3 4:35 PM CDT DERMATOPATHOLOGY LABORATORY Pathology/Cytolog y TISSUE SPECIMEN FROM SKIN / Unknown 06/20/2023 06/21/2023 6:10 AM CDT Andrzej Aguilar MD LAB - PATHOLOGY/CYTO LOGY ORDERABLES DERMATOPATHOLOGY LABORATORY [facility] - Department of Dermatology [facility]ly [facility] Medicine [address] [place] [address], [address] [phone] documented in this encounter Visit Diagnoses Not on filedocumented in this encounter Care Teams Senior Buyer Planner Relationship Specialty Start Date End Date Radha Kaminski APRN-SCOTT [address] [address] PCP - General Nurse Practitioner Family 12/03/21 [place] [address] [place] [address] Rheumatology 12/03/21 documented as of this encounter
--- OUTSIDE RECORDS SUMMARY | 2024-10-17 16:44 | XMS_ITS | Clinical Summary ---
Author Organization [facility] Address [address] [place] [phone] Phone Care Team Providers Care Brooch And Bracelet Maker Name Role Phone Radha Kaminski Primary Care Provider Allergies Active Allergy Reactions Criticality Noted Date Comments Prochlorperazine Other (see comments),Shortness of breath High 11/26/2016 Lockjaw Lockjaw Medications Medication Sig Dispensed Refills Start Date End Date Status aspirin (ST DUDLEY) 81 MG EC tablet Take 81 mg by mouth daily Active buPROPion XL (WELLBUTRIN XL) 150 MG 24 hr tablet 06/15/2022 Active Cholecalciferol (Vitamin D3) 1.25 MG (88490 UT) capsule Twice a week 06/08/2022 Acti ve clobetasol (TEMOVATE) 0.05 % cream RUB IN WELL TWICE A DAY TO INVOLVED AREAS OF BODY UNTIL CLEAR 03/25/2022 Active Trulicity 1.5 MG/0.5ML solution pen-injector 03/22/2022 Active estradiol (ESTRACE) 2 MG tablet 03/22/2022 Active fluticasone (FLONASE) 50 MCG/ACT nasal spray 03/22/2022 Active gabapentin (NEURONTIN) 300 MG capsule 04/13/2022 Active Hysingla ER 30 MG tablet extended-release 24 hour 06/01/2022 Active ibuprofen (ADVIL) 800 MG tablet 05/18/2022 Active Icosapent Ethyl 1 g capsule 06/08/2022 Active MAGnesium-Oxide 400 (240 Mg) MG tablet 06/08/2022 Active methylphenidate (CONCERTA) 36 MG CR tablet 06/17/2022 Active montelukast (SINGULAIR) 10 MG tablet montelukast 10 mg tablet Active Naloxone HCl 4 MG/0.1ML liquid naloxone 4 mg/actuation nasal spray Active rosuvastatin (CRESTOR) 20 MG tablet 05/12/2022 Active Active Problems Problem Noted Date Diagnosed Date Nonspecific abnormal results of function study o f kidney 06/21/2022 Aortic valve regurgitation 01/13/2022 Essential hypertension 04/10/2019 Mixed hyperlipidemia 04/10/2019 Bipolar disorder 11/26/2016 Type II diabetes mellitus uncontrolled 7 Family History Medical History Relation Comments Kidney disease Mother Relation Status Comments Mother Social History Tobacco Use Types Packs/Day Years Used Date Smoking Tobacco: Former Smokeless Tobacco: Never Alcohol Use Standard Drinks/Week Comments Yes 0 (1 standard drink = 0.6 oz pur e alcohol) occasional Sex and Gender Information Value Date Recorded Sex Assigned at Not on file Gender Identity Not on file Sexual Orientation Not on file Last Filed Vital Signs Vital Sign Reading Time Taken Comments Blood Pressure 116/66 06/21/2022 11:16 AM CDT Pulse 72 06/21/2022 11:16 AM CDT Temperature 36.5 ??C (97.7 ??F) 06/21/2022 11:16 AM C DT Respiratory Rate - - Oxygen Saturation - - Inhaled Oxygen Concentration - - Weight 102 kg (225 lb) 06/21/2022 11:16 AM CDT Height 170.2 cm (5' 7 ) 06/21/2022 11:16 AM CDT Body Mass Index 35.24 06/21/2022 11:16 AM CDT Plan of Treatment Health Maintenance Due Date Last Done Comments Diabetic Foot Exam 1978 Ophthalmology Exam 1978 Pneumococcal PPSV23 Highest Risk Adult (1 of 3 - PCV13 ) 1987 Influenza Vaccine (#1) 2024 Care Teams Brooch And Bracelet Maker Relationship Specialty Start Date End Date Radha Kaminski [address] [place] [phone] PCP - General Family Medicine 06/21/22
--- OUTSIDE RECORDS SUMMARY | 2024-10-17 16:44 | XMS_ITS | Encounter Summary ---
Author Organization [facility] Address [address] [place] [address]. [place] [id number] [place], [place] [id number] Care Team Providers Care Consulting Services Manager Name Role Phone Aneesh Dickens MD Primary Care Provider [phone] Radha Kaminski NP Primary Care Provider [phone] Encounter Details Date Type Department Care Team (Late st Contact Info) Description 04/07/2022 Prep for Procedure [facility] [address] [place] [address] Harley Phillips, DPSonia [address] [place] [phone] Social History Tobacco Use Types Packs/Day Years Used Date Smoking Tobacco: Never Smokeless Tobacco: Never Alcohol Use Standard Drinks/Week Comments Not Currently 0 (1 standard drink = 0.6 oz pur e alcohol) PHQ-2 Answer Date Recorded PHQ-2 Score - If the patient scores above 3, please move on to questions 3-9 0 08/12/2021 Comments No Sex and Gender Information Value Date Recorded Sex Assigned at Female 08/12/2020 10:34 AM HEALTH SCIENCES MANAGER Legal Sex Female 10:58 PM HEALTH SCIENCES MANAGER Gender Identity Female 08/12/2020 10:34 AM HEALTH SCIENCES MANAGER Sexual Orientation Straight 08/12/2020 10 :34 AM HEALTH SCIENCES MANAGER COVID-19 Exposure Response Date Recorded In the last 10 days, have yo u been in contact with someone who was confirmed or suspected to have Coronavirus/COVID-19? No / Unsure 04/09/2022 12:05 PM CDT documented as of this encounter Plan of Treatment Upcoming Encounters Date Type Department Care Team (Late st Contact Info) Description 12/07/2024 2:00 PM CDT Office Visit [facility] Diabetes and Endocrinology - [address] [phone] Eleanor Dodge MD [address] [place] [address] documented as of this encounter Visit Diagnoses Diagnosis Pre-op testing- Primary Preoperative examination, unspecified documented in this encounter Additional Health Concerns Infection Onset Date Last Indicated Resolved Time COVID-19 Rule Out 04/09/2022 04/09/2022 04/11/2022 12:05 PM CDT Assessment Noted Time PHQ-9 Depression Total Score: 0 08/12/20 2:09 PM HEALTH SCIENCES MANAGER documented as of this encounter Care Teams Consulting Services Manager Relationship Specialty Start Date End Date Aneesh Dickens MD [address] [place] [address] PCP - General FAMILY PRACTICE 04/10/19 04/08/22 Radha Kaminski NP [facility] [place] [address] PCP - General NURSE PRACTITIONER 04/09/22 documented as of this encounter
--- OUTSIDE RECORDS SUMMARY | 2024-10-17 16:44 | XMS_ITS | Patient Health Summary ---
Author Organization [facility] Address [address] [place] [address] Care Team Providers Care Radio Communications Mechanician Name Role Phone Radha Kaminski MYRON-PROCESS IMPROVEMENT SPECIALIST Primary Care Provider [phone] Harmony Mcrae MD Unavailable Note from [facility],non-owned Affiliates and Associated Physician Practices is amultiple site organization consisting of ambulatory clinics and hospital sitesin [place], [place], [place] and [place]. This disclosure is being madepursuant to the Care Everywhere program and may not contain all information available regarding this patient. Last updated 18.[facility] Allergies * Prochlorperazine(Other,Shortness of Breath) -High Criticality * Lisinopril(Other) -Medium Criticality,Inactive Medications * Be aware that medications may not be up to date on this document. Alwaysverify current medications with the patient. * oxyCODONE, immediate release, (ROXICODONE) 5 MG tablet(Started 06/25/2021) Take 1 (one) tablet by mouth every 4 hours as needed * magnesium oxide (MAG-OX) 400 MG tablet Take 1 (one) tablet by mouth once daily * albuterol HFA (PROVENTIL; VENTOLIN; PROAIR) 108 (90 Base) MCG/ACT inhaler Inhale 2 (two) puffs by mouth every 4 hours One puff every 4 hours as needed * montelukast (SINGULAIR) 10 MG tablet Take 1 (one) tablet by mouth once daily * gabapentin (NEURONTIN) 300 MG capsule(Started 10/08/2021) Take 1 (one) capsule by mouth 3 times daily * dulaglutide (TRULICITY) 0.75 MG/0.5ML injection Inject 0.5 mL subcutaneously every 7 days * cetirizine (ZYRTEC ALLERGY) 10 MG gel capsule Take 1 (one) capsule by mouth as needed * fluticasone propionate (FLONASE) 50 MCG/ACT nasal spray [place] 2 (two) sprays into each nostril once daily * blood glucose ([employer] ULTRA) test strip(Started 09/15/2021) USE TO TEST THREE TIMES A DAY * estradiol (ESTRACE) 2 MG tablet Take 1 (one) tablet by mouth every 24 hours * Multiple Vitamins-Minerals (MULTI VITAMIN/MINERALS) TABS Take 1 (one) tablet by mouth once daily * [place]-3 Fatty Acids (FISH OIL) 1000 MG capsule Take 1 (one) capsule by mouth once daily * Cholecalciferol 1.25 MG (75357 UT) Take 1 capsule by mouth every Tuesday, Tuesday & Tuesday * Ergocalciferol (VITAMIN D2) 50 MCG (2000 UT) Take 1 tablet by mouth every Tuesday, , & Tuesday * aspirin EC (Ecotrin) 81 MG tablet Take 1 (one) tablet by mouth once daily * HYDROcodone ER 24hr (Hysingla ER) 30 MG tablet(Started 04/20/2022) Take 1 (one) tablet by mouth once daily * buPROPion XL 24hr (Wellbutrin-XL) 150 MG tablet(Started 06/15/2022) Take 1 (one) tablet by mouth once daily * naloxone HCl (Narcan) 4 MG/0.1ML nasal spray [place] 1 (one) spray into the nose * icosapent ethyl (Vascepa) 1 g capsule(Started 02/24/2023) Take 3 (three) capsules by mouth once daily * rosuvastatin (Crestor) 20 MG tablet(Started 02/23/2023) Take 1 (one) tablet by mouth once daily * methylphenidate ER (Concerta) 54 MG tablet(Started 02/05/2023) Take 1 (one) tablet by mouth every morning * budesonide-formoterol (Symbicort) 160-4.5 MCG/ACT inhaler Inhale 2 (two) puffs by mouth as needed * cyanocobalamin (Vitamin B-12) 1000 MCG tablet Take 1 (one) tablet by mouth every morning * ALPRAZolam (Xanax) 0.5 MG tablet Take 1 tablet 3 times a day by oral route as needed. * cephalexin (Keflex) 500 MG capsule Take 1 capsule 3 times a day by oral route. * cetirizine (ZyrTEC ALLERGY) 10 MG tablet Take 1 tablet every day by oral route as needed. * clobetasol (Temovate) 0.05 % cream RUB IN WELL TWICE A DAY TO INVOLVED AREAS OF BODY UNTIL CLEAR * cyclobenzaprine (Flexeril) 5 MG tablet Take 1 (one) tablet by mouth 3 times daily * DULoxetine (Cymbalta) 30 MG capsule Take 1 (one) capsule by mouth once daily * Estradiol (Elestrin) 0.52 MG/0.87 GM (0.06%) Apply 1 pump every day by topical route. * HYDROcodone-acetaminophen ([place]) 5-325 MG tablet Take 1 (one) tablet by mouth two times daily at 4am and 4pm * indomethacin (Indocin) 50 MG capsule TAKE 1 CAPSULE BY MOUTH THREE TIMES A DAY ADMINISTER WITH FOOD OR MILK * mupirocin (Bactroban) 2 % ointment 1 APPLIC TOPICALLY TWICE A DAY * nystatin (Mycostatin) 870236 UNIT/ML suspension Take 5 mL 4 times a day by oral route for 7 days. * dulaglutide (Trulicity) 1.5 MG/0.5ML injection Inject 0.5 mL every week by subcutaneous route. * icosapent ethyl (Vascepa) 1 g capsule(Started 02/24/2023) Take 2 (two) capsules by mouth 2 times daily * oxyCODONE, immediate release, (Roxicodone) 5 MG tablet Take 1 (one) tablet by mouth two times daily at 4am and 4pm * HYDROcodone ER 24hr (Hysingla ER) 20 MG tablet Take 1 (one) tablet by mouth every 24 hours * tiZANidine (Zanaflex) 4 MG tablet(Started 04/22/2023) Take 1 (one) tablet by mouth every 8 hours as needed for Muscle Spasms * Vraylar 1.5 MG capsule(Started 05/12/2023) * meloxicam (Mobic) 7.5 MG tablet(Started 06/04/2023) * glimepiride (Amaryl) 2 MG tablet Take 1 (one) tablet by mouth as needed * methylPREDNISolone (Medrol Dosepak) 4 MG tablet(Started 06/07/2023) Take by mouth as directed Take as directed by mouth per package instructions. * hydroxychloroquine (Plaquenil) 200 MG tablet(Started 06/07/2023) Take 1 (one) tablet by mouth 2 times daily 1 refill by 06/06/2024 * ciprofloxacin (Cipro) 500 MG tablet(Started 06/29/2023) Take 1 (one) tablet by mouth 2 times daily * cyclobenzaprine (Flexeril) 10 MG tablet(Started 07/01/2023) 1 TABLET 3 TIMES A DAY NEEDED * Magnesium Oxide -Mg Supplement 400 (240 Mg) MG(Started 08/01/2023) * meloxicam (Mobic) 7.5 MG tablet(Started 07/06/2023) Take 1 (one) tablet by mouth once daily * Methylphenidate HCl (methylphenidate CR) 54 MG tablet(Started 06/07/2023) Take 1 (one) tablet by mouth every morning * methylphenidate ER (Concerta) 36 MG tablet(Started 08/17/2022) Take 1 (one) tablet by mouth every morning * metroNIDAZOLE vaginal (Metrogel - Vaginal) 0.75 % vaginal gel(Started 07/13/2023) INSERT ONE APPLICATORFUL VAGINALLY ONCE NIGHTLY FOR FIVE DAYS * triamcinolone acetonide (Kenalog) 0.1 % cream Apply to affected area 2 times daily * cariprazine (Vraylar) 3 MG capsule(Started 06/20/2023) * dulaglutide (Trulicity) 1.5 MG/0.5ML injection(Started 09/09/2023) Inject 0.5 mL subcutaneously every 7 days * rosuvastatin (Crestor) 40 MG tablet(Started 07/26/2023) * predniSONE (Deltasone) 5 MG tablet(Started 11/08/2023) 1 tab po q day as needed Active Problems No known active problems Social History Tobacco Use Types Packs/Day Years Used Date Smoking Tobacco: Never Smokeless Tobacco: Never Tobacco Cessation:Counseling Given: Not Answered Alcohol Use Standard Drinks/Week Comments Never 0 (1 standard drink = 0.6 oz pur e alcohol) Sex and Gender Information Value Date Recorded Sex Assigned at Not on file Gender Identity Not on file Sexual Orientation Not on file Last Filed Vital Signs Vital Sign Reading Time Taken Comments Blood Pressure 122/68 10/06/2023 2:03 PM LIVESTOCK BUYER Pulse 79 10/06/2023 2:03 PM LIVESTOCK BUYER Temperature 36.6 ??C (97.9 ??F) 01/07/2022 2:03 PM CD T Respiratory Rate 16 08/02/2023 2:35 PM LIVESTOCK BUYER Oxygen Saturation 97% 08/02/2023 2:35 PM LIVESTOCK BUYER Inhaled Oxygen Concentration - - Weight 93.9 kg (207 lb) 10/06/2023 2:03 PM LIVESTOCK BUYER Height 170.2 cm (5' 7 ) 10/06/2023 2:03 PM LIVESTOCK BUYER Body Mass Index 32.42 10/06/2023 2:03 PM LIVESTOCK BUYER Procedures * XR CHEST 2VW(Performed 08/02/2023) Performed for Arthralgia, unspecified joint * COMPLEMENT C3 C4 PANEL(Performed 08/02/2023) Performed for Arthralgia, unspecified joint * POPEYE PANEL COMPREHENSIVE(Performed 08/02/2023) Performed for Arthralgia, unspecified joint * POPEYE BLOOD SCREEN W/REFLEX TITER(Performed 08/02/2023) Performed for Arthralgia, unspecified joint * RHEUMATOID FACTOR BLOOD QUANTITATIVE(Performed 08/02/2023) Performed for Arthralgia, unspecified joint * CYCLIC CITRUL PEPTIDE ANTIBODY IGG/IGA ([facility])(Performed 08/02/2023) Performed for Arthralgia, unspecified joint * VITAMIN D 25-HYDROXY(Performed 08/02/2023) Performed for Arthralgia, unspecified joint * TSH(Performed 08/02/2023) Performed for Arthralgia, unspecified joint * ERYTHROCYTE SEDIMENTATION RATE(Performed 08/02/2023) Performed for Arthralgia, unspecified joint * C-REACTIVE PROTEIN(Performed 08/02/2023) Performed for Arthralgia, unspecified joint * COMPREHENSIVE METABOLIC PANEL(Performed 08/02/2023) Performed for Arthralgia, unspecified joint * CBC W AUTO DIFFERENTIAL(Performed 08/02/2023) Performed for Arthralgia, unspecified joint * INTERPRETATION REFLEXED(Performed 08/02/2023) Performed for Arthralgia, unspecified joint * HEPATITIS SCREEN ACUTE ([facility])(Performed 08/02/2023) Performed for Arthralgia, unspecified joint * DERMATOPATHOLOGY(Performed 06/20/2023) * POPEYE BLOOD SCREEN W/REFLEX TITER(Performed 12/03/2021) Performed for Arthralgia of hand, unspecified laterality * CYCLIC CITRUL PEPTIDE ANTIBODY IGG/IGA ([facility])(Performed 12/03/2021) Performed for Arthralgia of hand, unspecified laterality * RHEUMATOID FACTOR BLOOD QUANTITATIVE(Performed 12/03/2021) Performed for Arthralgia of hand, unspecified laterality * VITAMIN D 25-HYDROXY(Performed 12/03/2021) Performed for Arthralgia of hand, unspecified laterality * TSH(Performed 12/03/2021) Performed for Arthralgia of hand, unspecified laterality * HEPATITIS SCREEN ACUTE(Performed 12/03/2021) Performed for Arthralgia of hand, unspecified laterality * CK BLOOD(Performed 12/03/2021) Performed for Arthralgia of hand, unspecified laterality * ALDOLASE(Performed 12/03/2021) Performed for Arthralgia of hand, unspecified laterality Results * XR CHEST 2VW (08/02/2023 4:08 PM LIVESTOCK BUYER) Anatomical Region Laterality Modality Chest Radiographic Ramila ging 08/02/2023 4:23 PM LIVESTOCK BUYER Narrative 08/02/2023 4:24 PM LIVESTOCK BUYER PA & Lateral Chest INDICATION: Chest pain COMPARISON: none available FINDINGS: There is no focal infiltrate or consolidation. ??There is no pleural effusion or pneumothorax. ??A mass is not detected. ??The heart size is normal. > Interpreting Provider: Eligio Amor JR, MD on 08/02/2023 4:24 PM Procedure Note Eligio Amor MD - 08/02/2023 PA & Lateral Chest INDICATION: Chest pain COMPARISON: none available FINDINGS: There is no focal infiltrate or consolidation. There is no pleural effusion or pneumothorax. A mass is not detected. The heart size is normal. > Interpreting Provider: Eligio Amor JR, MD on 08/02/2023 4:24 PM Harmony Mcare MD DIAGNOSTIC IMAGING O RDERABLES * CYCLIC CITRUL PEPTIDE ANTIBODY IGG/IGA ([facility]) (08/02/2023 3:29 PM LIVESTOCK BUYER) Only the most recent of2 resultswithin the time period is included. CCP Antibodies IgG/IgA 0 0 - 19 units [facility] INSURANCE BILL Comment: ? Negative ? <20 ? Weak positive ?20 - 39 ? Moderate positive ??40 - 59 ? Strong positive ?>59 Blood BLOOD SPECIMEN / Unknown 08/02/2023 3:29 PM LIVESTOCK BUYER 08/02/2023 Narrative Resulting Agency Comment Lab Testing performed at: [facility] [address] ??[facility] [id number] Harmony Mcrae MD LAB - SEROLOGY ORDER WILLI [facility] INSURANCE BILL [address] [place] [address] * POPEYE PANEL COMPREHENSIVE (08/02/2023 3:29 PM LIVESTOCK BUYER) Anti-dsDNA Quantitative <1 0 - 9 IU/mL [facility] INSURANCE BILL Comment: ?Negative ?<5 ?Equivocal ??5 - 9 ?Positive ?>9 PLAYER MANAGER Antibody 0.2 0.0 - 0.9 AI [facility] INSURANCE BILL Navarro (HUSSEIN) Antibody <0.2 0.0 - 0.9 AI [facility] INSURANCE BILL Antiscleroderma-70 Antibody <0.2 0.0 - 0.9 AI [facility] INSURANCE BILL Sjogren's Antibodies (SSA) <0.2 0.0 - 0.9 AI [facility] INSURANCE BILL Sjogren's Antibodies (SSB) <0.2 0.0 - 0.9 AI [facility] INSURANCE BILL Antichromatin Antibodies <0.2 0.0 - 0.9 AI [facility] INSURANCE BILL Esperanza-1 Antibody <0.2 0.0 - 0.9 AI [facility] INSURANCE BILL Centromere B Antibody <0.2 0.0 - 0.9 AI [facility] INSURANCE BILL See Below [facility] INSURANCE BILL Comment: Autoantibody ? Disease Association ?Condition ?Frequency ? --------- Antinuclear Antibody, ?SLE, mixed connective Direct (POPEYE-D) ? tissue diseases ? --------- dsDNA ?SLE ?40 - 60% ? --------- Chromatin ?Drug induced SLE ?90% ? SLE ?48 - 97% ? --------- SSA (Ro) ? SLE ?25 - 35% ? Sjogren's Syndrome ? 40 - 70% ? Lupus ? 100% ? --------- SSB (La) ? SLE ? 10% ? Sjogren's Syndrome ?30% ?--------- Sm (anti-Navarro) ?SLE ?15 - 30% ?--------- PLAYER MANAGER ?Mixed Connective Tissue ? Disease ? 95% (U1 nRNP, ?SLE ?30 - 50% anti-ribonucleoprotein) ??Polymyositis and/or ? Dermatomyositis ? 20% ? --------- Scl-70 (antiDNA ?Scleroderma (diffuse) ?20 - 35% topoisomerase) ? Crest ? 13% ? --------- Esperanza-1 ? Polymyositis and/or ? Dermatomyositis ?20 - 40% ? --------- Centromere B ? Scleroderma - Crest ? variant ? 80% Blood BLOOD SPECIMEN / Unknown 08/02/2023 3:29 PM LIVESTOCK BUYER 08/02/2023 Narrative Resulting Agency Comment Lab Testing performed at: [facility] [address] ??[facility] [id number] Harmony Mcrae MD LAB - SEROLOGY ORDER WILLI [facility] INSURANCE BILL [address] [place] [address] * RHEUMATOID FACTOR BLOOD QUANTITATIVE (08/02/2023 3:29 PM LIVESTOCK BUYER) Only the most recent of2 resultswithin the time period is included. Rheumatoid Factor <10.0 <14.0 IU/mL [facility] INSURANCE BILL Blood BLOOD SPECIMEN / Unknown 08/02/2023 3:29 PM LIVESTOCK BUYER 08/02/2023 Narrative Resulting Agency Comment Lab Testing performed at: [facility] [address] ??[place] [phone] Harmony Mcrae MD LAB - CHEMISTRY KYRIE BELTRAN Performing Organization Address [facility] Co de Phone Number [facility] INSURANCE BILL [address] [place] [address] * C-REACTIVE PROTEIN (08/02/2023 3:29 PM LIVESTOCK BUYER) C-Reactive Protein <1 0 - 10 mg/L [facility] INSURANCE BILL Blood BLOOD SPECIMEN / Unknown 08/02/2023 3:29 PM LIVESTOCK BUYER 08/02/2023 Narrative Resulting Agency Comment Lab Testing performed at: [place] [id number] ??[place] [id number] Harmony Mcrae MD LAB - CHEMISTRY KYRIE BELTRAN Performing Organization Address [facility] Co de Phone Number [facility] INSURANCE BILL [address] [place] [address] * POPEYE BLOOD SCREEN W/REFLEX TITER (08/02/2023 3:29 PM LIVESTOCK BUYER) Only the most recent of2 resultswithin the time period is included. POPEYE Negative [facility] INSURANCE BILL Comment: ?Negative ?? <1:80 ?Borderline ??1:80 ?Positive ?? >1:80 ICAP nomenclature: AC-0 For more information about Hep-2 cell patterns use ANApatterns.org, the official website for the International Consensus on Antinuclear Antibody (POPEYE) Patterns (ICAP). Blood BLOOD SPECIMEN / Unknown 08/02/2023 3:29 PM LIVESTOCK BUYER 08/02/2023 Narrative Resulting Agency Comment Lab Testing performed at: [facility] [address] ??[facility] [phone] Harmony Mcrae MD LAB - CHEMISTRY KYRIE BELTRAN [facility] INSURANCE BILL [address] [place] [address] * VITAMIN D 25-HYDROXY (08/02/2023 3:29 PM LIVESTOCK BUYER) Only the most recent of2 resultswithin the time period is included. Vitamin D, 25 Hydroxy 54.6 30.0 - 100.0 ng/mL [facility] INSURANCE BILL Comment: Vitamin D deficiency has been defined by the [place] of Medicine and an Endocrine Society practice guideline as a level of serum 25-OH vitamin D less than 20 ng/mL (1,2). The Endocrine Society went on to further define vitamin D insufficiency as a level between 21 and 29 ng/mL (2). 1. IOM ([place]). 2010. Dietary reference ?? intakes for calcium and D. [place]: The ?? National Academies Press. 2. Reynaldo MF, Adore NC, Dianelys GUAN, et al. ?? Evaluation, treatment, and prevention of vitamin D ?? deficiency: an Endocrine Society clinical practice ?? guideline. JCEM. 2010; 96(7):1911-30. Blood BLOOD SPECIMEN / Unknown 08/02/2023 3:29 PM LIVESTOCK BUYER 08/02/2023 Narrative Resulting Agency Comment Lab Testing performed at: [facility] [place] [address] ??[facility] [phone] Harmony Mcrae MD LAB - CHEMISTRY KYRIE BELTRAN [facility] INSURANCE BILL [address] [place] [address] * ERYTHROCYTE SEDIMENTATION RATE (08/02/2023 3:29 PM LIVESTOCK BUYER) Pathologist [facility] Erythrocyte Sedimentation Rate Westergren 3 0 - 40 mm/hr [facility] INSURANCE BILL Blood BLOOD SPECIMEN / Unknown 08/02/2023 3:29 PM LIVESTOCK BUYER 08/02/2023 Narrative Resulting Agency Comment Lab Testing performed at: [facility] [address] ??[facility] [phone] Harmony Mcrae MD LAB - HEMATOLOGY ORD ERABLES [facility] INSURANCE BILL [address] [place] [address] * CBC WITH DIFFERENTIAL (08/02/2023 3:29 PM LIVESTOCK BUYER) Pathologist [facility] WBC 7.7 3.4 - 10.8 x10E3/uL [facility] INSURANCE BILL RBC 4.29 3.77 - 5.28 x10E6/uL [facility] INSURANCE BILL Hemoglobin 13.7 11.1 - 15.9 g/dL [facility] INSURANCE BILL Hematocrit 39.5 34.0 - 46.6 % [facility] INSURANCE BILL MCV 92 79 - 97 fL [facility] INSURANCE BILL MCH 31.9 26.6 - 33.0 pg [facility] INSURANCE BILL MCHC 34.7 31.5 - 35.7 g/dL [facility] INSURANCE BILL RDW 12.6 11.7 - 15.4 % [facility] INSURANCE BILL Platelet Count 250 150 - 450 x10E3/uL [facility] INSURANCE BILL Granulocytes % 63 Not Estab. % [facility] INSURANCE BILL Lymphocytes % 27 Not Estab. % [facility] INSURANCE BILL Monocytes % 8 Not Estab. % [facility] INSURANCE BILL Eosinophils % 1 Not Estab. % [facility] INSURANCE BILL Basophils % 1 Not Estab. % [facility] INSURANCE BILL Immature Cells NOT AVAILABLE [facility] INSURANCE BILL Comment:Result cannot be obt ained for this observation. Granulocytes Absolute 4.8 1.4 - 7.0 x10E3/uL [facility] INSURANCE BILL Lymphocytes Absolute 2.1 0.7 - 3.1 x10E3/uL [facility] INSURANCE BILL Monocytes Absolute 0.6 0.1 - 0.9 x10E3/uL [facility] INSURANCE BILL Eosinophils Absolute 0.1 0.0 - 0.4 x10E3/uL [facility] INSURANCE BILL Basophils Absolute 0.1 0.0 - 0.2 x10E3/uL [facility] INSURANCE BILL Immature Granulocytes 0 Not Estab. % [facility] INSURANCE BILL Immature Granulocytes Absolute 0.0 0.0 - 0.1 x10E3/uL [facility] INSURANCE BILL nRBC NOT AVAILABLE [facility] INSURANCE BILL Comment:Result cannot be obt ained for this observation. Comment Hematology NOT AVAILABLE [facility] INSURANCE BILL Comment:Result cannot be obt ained for this observation. Blood BLOOD SPECIMEN / Unknown 08/02/2023 3:29 PM LIVESTOCK BUYER 08/02/2023 Narrative Resulting Agency Comment Lab Testing performed at: [address] ??[facility] [id number] Harmony Mcrae MD LAB - HEMATOLOGY ORD ERABLES [facility] INSURANCE BILL [address] [place] [address] * (ABNORMAL) COMPREHENSIVE METABOLIC PANEL (08/02/2023 3:29 PM LIVESTOCK BUYER) Glucose 95 70 - 99 mg/dL [facility] INSURANCE BILL BUN 15 6 - 24 mg/dL [facility] INSURANCE BILL Creatinine 0.96 0.57 - 1.00 mg/dL [facility] INSURANCE BILL eGFR by CKD-EPI 70 >59 mL/min/1.7 3 [facility] INSURANCE BILL BUN/Creatinine Ratio 16 9 - 23 [facility] INSURANCE BILL Sodium 141 134 - 144 mmol/L [facility] INSURANCE BILL Potassium 4.3 3.5 - 5.2 mmol/L [facility] INSURANCE BILL Chloride 105 96 - 106 mmol/L [facility] INSURANCE BILL CO2 20 20 - 29 mmol/L [facility] INSURANCE BILL Calcium 9.4 8.7 - 10.2 mg/dL [facility] INSURANCE BILL Protein Total 6.4 6.0 - 8.5 g/dL [facility] INSURANCE BILL Albumin 4.6 3.8 - 4.9 g/dL [facility] INSURANCE BILL Globulin Total 1.8 1.5 - 4.5 g/dL [facility] INSURANCE BILL Albumin/Globulin Ratio 2.6(H) 1.2 - 2.2 [facility] INSURANCE BILL Bilirubin Total 0.3 0.0 - 1.2 mg/dL [facility] INSURANCE BILL Alkaline Phosphatase 56 44 - 121 IU/L [facility] INSURANCE BILL AST 16 0 - 40 IU/L [facility] INSURANCE BILL ALT 15 0 - 32 IU/L [facility] INSURANCE BILL Blood BLOOD SPECIMEN / Unknown 08/02/2023 3:29 PM LIVESTOCK BUYER 08/02/2023 Narrative Resulting Agency Comment Lab Testing performed at: [facility] [address] ??[facility] [phone] Harmony Mcrae MD LAB - CHEMISTRY KYRIE BELTRAN [facility] INSURANCE BILL [address] [place] [address] * COMPLEMENT C3 C4 PANEL (08/02/2023 3:29 PM LIVESTOCK BUYER) Complement C3 151 82 - 167 mg/dL [facility] INSURANCE BILL Complement C4 36 12 - 38 mg/dL [facility] INSURANCE BILL Blood BLOOD SPECIMEN / Unknown 08/02/2023 3:29 PM LIVESTOCK BUYER 08/02/2023 Narrative Resulting Agency Comment Lab Testing performed at: [facility] [address] ??[facility] [phone] Harmony Mcrae MD LAB - CHEMISTRY KYRIE BELTRAN [facility] INSURANCE BILL [address] [place] [address] * TSH (08/02/2023 3:29 PM LIVESTOCK BUYER) Only the most recent of2 resultswithin the time period is included. TSH 2.400 0.450 - 4.500 uIU/mL [facility] INSURANCE BILL Blood BLOOD SPECIMEN / Unknown 08/02/2023 3:29 PM LIVESTOCK BUYER 08/02/2023 Narrative Resulting Agency Comment Lab Testing performed at: [facility] [place] [address] ??[facility] [phone] Harmony Mcrae MD LAB - CHEMISTRY KYRIE BELTRAN Performing Organization Address City/[facility]/ZIP Co de Phone Number [facility] INSURANCE BILL [address] [place] [address] * HEPATITIS SCREEN ACUTE ([facility]) (08/02/2023 3:28 PM LIVESTOCK BUYER) Hepatitis A Virus Antibody IgM Negative Negative [facility] INSURANCE BILL Hepatitis B Virus Surface Antigen Negative Negative [facility] INSURANCE BILL Hepatitis B Core Virus Antibody IgM Negative Negative [facility] INSURANCE BILL Hepatitis C Antibody Non Reactive Non Reactive [facility] INSURANCE BILL Blood BLOOD SPECIMEN / Unknown 08/02/2023 3:28 PM LIVESTOCK BUYER 08/02/2023 Narrative Resulting Agency Comment Lab Testing performed at: [facility] [address] ??[facility] [id number] Harmony Mcrae MD LAB - CHEMISTRY KYRIE BELTRAN Performing Organization Address [facility] de Phone Number [facility] INSURANCE BILL [address] [place] [address] * INTERPRETATION REFLEXED (08/02/2023 3:28 PM LIVESTOCK BUYER) Interpretation [facility] INSURANCE BILL Comment: Not infected with HCV unless early or acute infection is suspected (which may be delayed in an immunocompromised individual), or other evidence exists to indicate HCV infection. 08/02/2023 3:28 PM LIVESTOCK BUYER 08/02/2023 Narrative Resulting Agency Comment Lab Testing performed at: [facility] [address] ??[facility] [phone] Harmony Mcrae MD LAB - SEROLOGY ORDER WILLI Performing Organization Address [facility] de Phone Number [facility] INSURANCE BILL [address] [place] [address] * DERMATOPATHOLOGY (06/20/2023 12:00 AM CDT) Case Report Dermatopathology Report ? Case: [id number] ? Authorizing Provider: ??Andrzej Aguilar MD ?Collected: ? 06/20/2023 12:00 AM ? Ordering Location: ? [facility] ? Received: ?06/21/2023 06:10 AM [...] characteristic determined by the Dermatopathology Laboratory at [facility], directed by Dr. Jean-Pierre Miller. These tests need not be, and therefore are not, approved by the [place] Food and Drug Administration. The tests are used for clinical purposes. Billing Codes Specimen Charges Stain Charges 78185 1 [id number] 1 3 4:35 PM CDT DERMATOPATHOLOGY LABORATORY Embedded Images 3 4:35 PM CDT DERMATOPATHOLOGY LABORATORY Pathology/Cytolog y TISSUE SPECIMEN FROM SKIN / Unknown 06/20/2023 06/21/2023 6:10 AM CDT Andrzej Aguilar MD LAB - PATHOLOGY/CYTO LOGY ORDERABLES DERMATOPATHOLOGY LABORATORY [facility] - Department of Dermatology [address] [phone] * ALDOLASE (12/03/2021 2:25 PM CDT) Aldolase 4.5 3.3 - 10.3 U/L [facility] INSURANCE BILL Blood BLOOD SPECIMEN / Unknown 12/03/2021 2:25 PM CDT 12/03/2021 Narrative Resulting Agency Comment Lab Testing performed at: [facility] [address] ??[place] [phone] Harmony Mcrae MD LAB - CHEMISTRY KYRIE BELTRAN [facility] INSURANCE BILL [address] [place] [address] * CK BLOOD (12/03/2021 2:25 PM CDT) Pathologist [facility] CK [id number] - 182 U/L [facility] INSURANCE BILL Blood BLOOD SPECIMEN / Unknown 12/03/2021 2:25 PM CDT 12/03/2021 Narrative Resulting Agency Comment Lab Testing performed at: [facility] [address] [facility] ??[place] [id number] Harmony Mcrae MD LAB - CHEMISTRY KYRIE BELTRAN Performing Organization Address [facility] Co de Phone Number [facility] INSURANCE BILL [address] [place] [address] * HEPATITIS SCREEN ACUTE (12/03/2021 2:25 PM CDT) [facility] Hepatitis A Virus Antibody IgM Negative Negative [facility] INSURANCE BILL Hepatitis B Virus Surface Antigen Negative Negative [facility] INSURANCE BILL Hepatitis B Core Virus Antibody IgM Negative Negative [facility] INSURANCE BILL Hepatitis C Antibody <0.1 0.0 - 0.9 s/co ratio [facility] INSURANCE BILL Comment: ? Negative: ? < 0.8 ?Indeterminate: 0.8 - 0.9 ? Positive: ? > 0.9 ? . ?The CDC recommends that a positive HCV antibody result ?be followed up with a HCV Nucleic Acid Amplification ?test ([id number]). Effective January 18, 2022 Hepatitis Panel (4) will be made ?non-orderable. ??Donay offers order code [id number] Acute Hepatitis. Blood BLOOD SPECIMEN / Unknown 12/03/2021 2:25 PM CDT 12/03/2021 Narrative Resulting Agency Comment Lab Testing performed at: [address] ??[facility] [id number] Harmony Mcrae MD LAB - [facility]MISTRY [facility] INS[facility] [address] [place] [address] Care Teams Radio Communications Mechanician Relationship Specialty Start Date End Date Radha Kaminski APRN-SCOTT [address] [facility] [address] [place] [address] PCP - General Nurse Practitioner Family 12/03/21 [place] [address] [place] [address] Rheumatology 12/03/21
--- OUTSIDE RECORDS SUMMARY | 2024-10-17 16:44 | XMS_ITS | Referral Summary ---
Author Organization [facility] [address] [place] [address] Care Team Providers Care Online Community Manager Name Role Phone Roland Rojas DO Primary Care Provider Encounters Date Type Department Care Team Description 08/23/2024 2:00 PM LABORATORY HELPER Office Visit [facility] Cardiology at [address] [place] [id number] Rhett Ramírez MD Nonrheumatic aortic valve insufficiency (Primary Dx); Bilateral carotid artery stenosis; Coronary artery disease involving pauma coronary artery of pauma heart without angina pectoris; Hypertension associated with diabetes (HCC); Hyperlipidemia associated with type 2 diabetes mellitus (HCC) from Last 3 Months Allergies Active Allergy Reactions Criticality Noted Date Comments Ciprofloxacin Rash Medium 07/26/2023 Lisinopril Mental status changes Low 01/24/2024 Prochlorperazine Shortness of breath,Nausea & Vomiting,Other (See comments) High 11/26/2016 Lockjaw Lockjaw Other reaction(s): Other (see comments) Lockjaw Lockjaw Lockjaw Lockjaw Lockjaw Medications montelukast (SINGULAIR) 10 mg tablet Take 1 tablet (10 mg total) by mouth nightly Active fluticasone propionate (FLONASE) 50 mcg/actuation nasal spray Administer 1 spray into each nostril daily Active aspirin 81 mg enteric coated tablet Take 1 tablet (81 mg total) by mouth daily Active estradioL (ESTRACE) 2 mg tablet Take 1 tablet (2 mg total) by mouth daily Active gabapentin (NEURONTIN) 300 mg capsule Take 1 capsule (300 mg total) by mouth 3 (three) times a day Active glimepiride (AMARYL) 2 mg tabletIndicatio ns:type 2 diabetes mellitus Take 1 tablet (2 mg total) by mouth as needed Active magnesium oxide (MAG-OX) 400 mg (241.3 mg elemental magnesium) tabletIndicatio ns:hypomagnesem ia Take 1 tablet (400 mg total) by mouth daily Active cetirizine (ZyrTEC) 10 mg tablet Take 1 tablet (10 mg total) by mouth daily As needed Active icosapent ethyL (VASCEPA) 1 gram capsule Take 2 capsules (2 g total) by mouth 2 (two) times a day Active tiZANidine (ZANAFLEX) 4 mg tablet TAKE 1 TABLET BY MOUTH EVERY 8 HOURS NEEDED FOR MUSCLE SPASM 3 Active predniSONE (DELTASONE) 5 mg tablet 3 Active methylphenidate HCl 72 mg tablet extended release 24hr Take by mouth every morning 3 Active buPROPion XL (WELLBUTRIN XL) 150 mg 24 hr tablet Take 1 tablet (150 mg total) by mouth every morning 3 Active Vraylar 3 mg capsule capsule Take 1 capsule (3 mg total) by mouth daily 3 Active rosuvastatin (CRESTOR) 40 mg tablet Take 1 tablet (40 mg total) by mouth nightly 90 tablet 3 3 Active oxyCODONE 5 mg tablet, oral only Take 5 mg by mouth 3 (three) times a day as needed Active furosemide (LASIX) 20 mg tablet Take 1 tablet (20 mg total) by mouth daily as needed 4 Active cyanocobalamin (Vitamin B-12) 1,000 mcg/mL injection Inject into the muscle as instructed once a week [address] (CYMBALTA) 30 mg capsule Take 1 capsule (30 mg total) by mouth daily 4 Active minoxidiL (LONITEN) 2.5 mg tablet Take 0.5 tablets (1.25 mg total) by mouth daily 4 Active Active Problems Problem Noted Date Diagnosed Date Pain in joint involving ankle and foot Chronic pain syndrome 06/22/2023 Postlaminectomy syndrome 05/17/2023 Cervical radiculopathy 05/17/2023 Radiculopathy, lumbosacral region 05/17/2023 Coronary artery disease invo lving pauma coronary artery of pauma heart without angina pectoris 04/19/2023 Essential hypertension 04/19/2023 Hyperlipidemia associated with type 2 diabetes m ellitus 04/19/2023 Aortic valve regurgitation 04/19/2023 Obesity 04/19/2023 Carotid artery stenosis 04/19/2023 Asthma 02/20/2023 05/17/2023 Neuropathy 02/20/2023 05/17/2023 Type 2 diabetes mellitus without complication (C MS/HCC) 02/20/2023 Allergic rhinitis 02/20/2023 Vitamin D deficiency 02/20/2023 Cardiovascular stress test abnormal 02/20/2023 Fatigue 02/20/2023 Traumatic rupture of peronea l tendon, right, subsequent encounter 11/04/2022 Overview (01/24/2024): Added automatically from request for surgery [id number] Nonspecific abnormal results of function study o f kidney 06/21/2022 Carpal tunnel syndrome of right wrist 05/25/2022 Right peroneal tendonosis 05/07/2022 Coronary arteriosclerosis 03/03/2022 Aortic valve regurgitation 01/13/2022 Suppurative arthritis 08/27/2020 05/17/2023 Pain in joint involving ankle and foot 0 05/17/2023 Mixed hyperlipidemia 04/10/2019 Edema of lower extremity 10/25/2018 Dizziness 02/15/2018 Pain in both lower extremities 10/18/2017 Pain in both lower extremities 10/17/2017 0 05/17/2023 Tachycardia 07/04/2017 Hypercholesterolemia 07/03/2017 Atypical chest pain 07/03/2017 Dyslipidemia 07/03/2017 Anxiety 06/16/2017 05/17/2023 Mixed anxiety and depressive disorder 06/16/2017 05/17/2023 Hypertension associated with diabetes 06/16/2017 Diabetes mellitus 06/16/2017 Type 2 diabetes mellitus wit h diabetic autonomic neuropathy, without long-term current use of insulin 11/26/2016 0 05/17/2023 Type 2 diabetes mellitus without complication (C MS/HCC) 11/26/2016 Social History Tobacco Use Types Packs/Day Years Used Date Smoking Tobacco: Never Smokeless Tobacco: Never Tobacco Cessation:Counseling Given: Not Answered AUDIT-C Answer Date Recorded Q1: How often do you have a drink containing alc ohol? Monthly or less 05/17/2023 Q2: How many drinks containi ng alcohol do you have on a typical day when you are drinking? 1 or 2 05/17/2023 Q3: How often do you have si x or more drinks on one occasion? Never 05/17/2023 Comments Unknown Sex and Gender Information Value Date Recorded Sex Assigned at Not on file Legal Sex Female 7:45 PM LABORATORY HELPER Gender Identity Not on file Sexual Orientation Not on file Last Filed Vital Signs Vital Sign Reading Time Taken Comments Blood Pressure 118/82 08/23/2024 2:00 PM LABORATORY HELPER Pulse 82 08/23/2024 2:00 PM LABORATORY HELPER Temperature 36.5 ??C (97.7 ??F) 02/18/2022 2:55 PM CD T Respiratory Rate 17 05/17/2023 1:17 PM CDT Oxygen Saturation 99% 08/23/2024 2:00 PM LABORATORY HELPER Inhaled Oxygen Concentration - - Weight 107 kg (236 lb) 08/23/2024 2:00 PM LABORATORY HELPER Height 170.2 cm (5' 7 ) 08/23/2024 2:00 PM LABORATORY HELPER Body Mass Index 36.96 08/23/2024 2:00 PM LABORATORY HELPER Plan of Treatment Not on file Procedures Procedure Name Priority Date/Time Associated Diagnosis Comments ELECTROCARDIOGRAM REPORT Routine 4:02 PM LABORATORY HELPER Nonrheumatic aortic valve insufficiency POCT LIPID PANEL Routine 08/23/2024 2:54 PM LABORATORY HELPER Coronary artery disease involving pauma coronary artery of pauma heart without angina pectoris Hyperlipidemia associated with type 2 diabetes mellitus (HCC) EGFR STAT 02/18/2022 1:07 PM CDT from Last 3 Months or Most Recently Relevant to Health Maintenance Results * Electrocardiogram Report (08/23/2024 4:02 PM LABORATORY HELPER) us Rhett Ramírez MD ECG ORDERABLES Final Res ult * POCT lipid panel (08/23/2024 2:54 PM LABORATORY HELPER) Cholesterol, POC 234 mg/dL HDL, POC 48 mg/dL Triglycerides, POC 305 mg/dL LDL Cholesterol POC 125 mg/dL Chol/HDL Ratio, POC 4.9 Non-HDL Cholesterol, POC 186 mg/dL Cholesterol Total, POC 234 mg/dL Capillary blood 08/23/2024 2 :54 PM LABORATORY HELPER us Rhett Ramírez MD POINT OF CARE TEST ORDERA BLES Final Result * eGFR (02/18/2022 1:07 PM CDT) eGFR 67 mL/min/1. 73 m2 AMANUEL LOPEZ Comment: Interpretive Data Reference Interval Normal ?>/= 90 mL/min/1.73m2 Mildly decreased* ? 60 - 89 mL/min/1.73m2 Mildly to moderately decreased ?45 - 59 mL/min/1.73m2 Moderately to severely decreased ??30 - 44 mL/min/1.73m2 Severely decreased ?15 - 29 mL/min/1.73m2 Kidney Failure ?< 15 ??mL/min/1.73m2 *Relative to young adult level Estimated glomerular filtration rate is determined by the 2020 CKD-EPI equation recommended by the National Kid[employer] (A Unifying Approach to GFR Estimation: Recommendations of the NKF-ASK Task Force on Reassessing the Inclusion of Race in Diagnosing Kidney Disease, JASN 2020). The CKD-EPI equation should not be used for patients with unstable renal function and has not been validated in children and those over 70. Current interpretive data was last reviewed 2021. Blood 02/18/2022 1:07 PM CDT 02/18/2022 1:12 PM CDT us David Hancock MD LAB BLOOD ORDERABLES Final Re sult [facility] [address] [facility] [place] [address] from Last 3 Months or Most Recently Relevant to Health Maintenance Insurance u.sitNA OPEN ACCESS [employer] OPEN ACCESS [facility]LY [facility] OPEN ACCESS Care Teams Online Community Manager Relationship Specialty Start Date End Date Roland Rojas DO [address] [place] [address] PCP - General Family Medicine 01/24/24
--- OUTSIDE RECORDS SUMMARY | 2024-10-17 16:44 | XMS_ITS | Clinical Summary ---
Author Organization [facility] Address [address] [place] [address]. [place] [address] Care Team Providers Care Investment Specialist Name Role Phone Radha Kaminski NP Primary Care Provider [phone] Allergies Active Allergy Reactions Criticality Noted Date Comments Ciprofloxacin Rash Medium 08/08/2023 Prochlorperazine Shortness of Breath, Other (see comment) High 11/26/2016 [place] Medications aspirin 81 MG tablet Take 1 tablet (81 mg total) by mouth daily. Active Cetirizine HCl (ZYRTEC ALLERGY) 10 MG Cap Take by mouth as needed. Active fluticasone propionate 50 MCG/ACT nasal spray by Each Nostril route as needed. Active montelukast 10 MG tablet Active Blood Glucose Monitoring Suppl w/Device KitIndications:Un controlled type 2 diabetes mellitus with hyperglycemia ([facility]) Use to test blood sugars three times daily 1 kit 09/05/20 19 Active estradiol 2 MG tablet Take 1 tablet (2 mg total) by mouth daily. 10/18/19 21 Active icosapent ethyl 1 G capsule Take 2 capsules (2 g total) by mouth 2 (two) times daily. Active gabapentin (NEURONTIN) 300 MG capsuleIndication s:Type 2 diabetes mellitus with diabetic autonomic neuropathy, without long-term current use of insulin ([facility]) TAKE 1 CAPSULE THREE TIMES A DAY 270 capsule 3 01/22/20 23 Active buPROPion XL (WELLBUTRIN XL) 150 MG 24 hr tablet bupropion HCl XL 150 mg 24 hr tablet, extended release Active rosuvastatin (CRESTOR) 20 MG tablet rosuvastatin 20 mg tablet Active oxyCODONE immediate release (ROXICODONE) 5 MG immediate release tabletIndications :Acute Pain < 7 Day Supply Take 1 tablet (5 mg total) by mouth every 4 (four) hours as needed. Indications: Acute Pain < 7 Day Supply 20 tablet 04/13/20 22 Active methylphenidate CR (CONCERTA) 36 MG tablet Take 1 tablet (36 mg total) by mouth every morning. 08/17/20 22 Active magnesium oxide (MAG-OX) 400 (240 Mg) MG tablet 11/18/19 23 Active ONETOUCH ULTRA test stripIndications: Uncontrolled type 2 diabetes mellitus with hyperglycemia ([facility] HHS/HCC) USE TO TEST THREE TIMES A DAY 300 strip 3 02/25/20 23 Active VRAYLAR 3 MG capsule 1 capsule (3 mg total). 06/20/20 23 Active cyclobenzaprine (FLEXERIL) 10 MG tablet Take 1 tablet (10 mg total) by mouth 3 (three) times daily as needed. Active clobetasol (TEMOVATE) 0.05 % cream RUB IN WELL TWICE A DAY TO INVOLVED AREAS OF BODY UNTIL CLEAR 06/06/20 23 Active triamcinolone (KENALOG) 0.1 % cream Apply topically 2 (two) times daily. Active furosemide (LASIX) 20 MG tablet Take 1 tablet (20 mg total) by mouth daily. 01/18/20 24 Active minoxidil (LONITEN) 2.5 MG tablet Take 0.5 tablets (1.25 mg total) by mouth daily. 01/30/20 24 Active mupirocin (BACTROBAN) 2 % ointment 1 APPLIC TOPICALLY TWICE A DAY INTRANASAL 01/09/20 24 Active dulaglutide (TRULICITY) 3 MG/0.5ML injectionIndicati ons:Uncontrolled type 2 diabetes mellitus with hyperglycemia ([facility] HHS/HCC) Inject 3 mg into the skin once a week. 2 mL 6 09/06/20 24 Active Active Problems Problem Noted Date Diagnosed Date S/P peroneal tendon repair 12/22/2022 Traumatic rupture of peronea l tendon, right, subsequent encounter 11/04/2022 Overview (11/04/2022): Added automatically from request for surgery [id number] Right peroneal tendonosis 05/07/2022 Aortic valve regurgitation 01/13/2022 Pain in joint involving ankle and foot 0 Suppurative arthritis ([facility]) 08/27/20 20 Essential hypertension 04/10/2019 Mixed hyperlipidemia 04/10/2019 Edema of lower extremity 10/26/2018 Dizziness 02/15/2018 Pain in both lower extremities 10/18/2017 Tachycardia 07/04/2017 Atypical chest pain 07/03/2017 Dyslipidemia 07/03/2017 History of obesity 07/03/2017 Anxiety 06/16/2017 Uncontrolled type 2 diabetes mellitus with hyperglycemia ([facility]) 11/26/2016 Bipolar disorder ([facility]) 11/26/2016 Type 2 diabetes mellitus wit h diabetic autonomic neuropathy, without long-term current use of insulin ([facility]) 11/26/2016 Resolved Problems Problem Noted Date Diagnosed Date Resolved Date Encounter for preventive health examination 10/05/2016 09/01/2020 Encounters Date Type Department Care Team Description 09/06/2024 2:00 PM SLUBBER TENDER Office Visit [facility] Medical Group Diabetes and Endocrinology - [address] [phone] Eleanor Dodge MD Type 2 Diabetes 09/06/2024 Travel 08/07/2024 11:25 AM SLUBBER TENDER - 08/07/2024 11:59 PM SLUBBER TENDER Hospital Encounter [facility] Sleep Lab [address] [place] [address] Laura Lim MD Obstructive Sleep Apnea Discharge Disposition: Home or Self Care (Routine Discharge) 08/07/2024 Travel 07/30/2024 Transcribe Orders [facility] Sleep Lab [address] [place] [address] Laura Lim MD 07/18/2024 12:00 PM CDT - 07/18/2024 11:59 PM CDT Hospital Encounter [facility] Ultrasound [address] [place] [address] Laura Lim MD Discharge Disposition: Home or Self Care (Routine Discharge) 07/18/2024 Travel from Last 3 Months Family History Medical History Relation Comments Heart Disease Father Hypertension Father Alzheimers Maternal Grandfather No Known Problems Maternal Grandmother Cancer Mother Heart Disease Mother Hypertension Mother No Known Problems Paternal Grandfather No Known Problems Paternal Grandmother Relation Status Comments Father Alive Maternal Grandfather Maternal Grandmother Mother Paternal Grandfather Paternal Grandmother Social History Tobacco Use Types Packs/Day Years Used Date Smoking Tobacco: Never Smokeless Tobacco: Never Tobacco Cessation:Counseling Given: No Alcohol Use Standard Drinks/Week Comments Not Currently 0 (1 standard drink = 0.6 oz pur e alcohol) PHQ-2 Answer Date Recorded Patient Health Questionnaire-2 Score 0 01/09/2024 Comments No Sex and Gender Information Value Date Recorded Sex Assigned at Female 08/12/2020 10:34 AM SLUBBER TENDER Legal Sex Female 10:58 PM SLUBBER TENDER Gender Identity Female 08/12/2020 10:34 AM SLUBBER TENDER Sexual Orientation Straight 08/12/2020 10 :34 AM SLUBBER TENDER Last Filed Vital Signs Vital Sign Reading Time Taken Comments Blood Pressure 128/80 09/06/2024 2:10 PM SLUBBER TENDER Pulse 93 09/06/2024 2:10 PM SLUBBER TENDER Temperature 36.2 ??C (97.2 ??F) 09/09/2023 2:19 PM CS T Respiratory Rate 16 11/26/2022 1:40 PM SLUBBER TENDER Oxygen Saturation 97% 09/06/2024 2:10 PM SLUBBER TENDER Inhaled Oxygen Concentration - - Weight 107.3 kg (236 lb 9.6 oz) 09/06/2024 2:10 PM SLUBBER TENDER Height 170.2 cm (5' 7 ) 09/06/2024 2:10 PM SLUBBER TENDER Body Mass Index 37.06 09/06/2024 2:10 PM SLUBBER TENDER Plan of Treatment Upcoming Encounters Date Type Department Care Team (Late st Contact Info) Description 12/07/2024 2:00 PM CDT Office Visit [facility] Medical Group Diabetes and Endocrinology - [address] [phone] Eleanor Dodge MD [facility] [place] [address] Health Maintenance Due Date Last Done Comments Colorectal Cancer Screening Colonoscopy (10 Years) 1970 Kidney Health Evaluation 1968 Annual Physical 1971 Pneumococcal Vaccine: Pediatrics (0 to 5 Years) and At-Risk Patients (6 to 64 Years) (1 of 2 - PCV) 1974 Hepatitis C 1986 DTaP, Tdap and Td Vaccines (1 - Tdap) 1987 Hepatitis B Vaccines (1 of 3 - 19+ 3-dose series) 1987 Mammogram Screening 2008 Zoster Vaccines (1 of 2) 2018 COVID-19 Vaccine (1 - season) 2024 Influenza Adult (#1) 2024 PHQ-2 (Physician [place]) 09/19/2024 01/09/2024 PHQ-2 (Physician [place]) 01/08/2025 01/09/2024 Hemoglobin A1C 03/07/2025 09/06/2024, 08/20, 08/27/2022, Additional history exists Diabetes: Retinopathy Eye Exam 06/20/2025 06/20/2023 Lipid Panel 08/23/2025 08/23/2024 Meningococcal B Vaccine Aged Out No l onger eligible based on patient's age to complete this topic Meningococcal Vaccine Aged Out No ramone nyasia eligible based on patient's age to complete this topic RSV Immunizations Under 20 Months Aged Out No longer eligible based on patient's age to complete this topic Medical Devices Implanted Type Area Senior Strategy Manager Device Identifier Shelf Expiration Date Model / Serial / Lot [place] Suture Arthrex Dx Fibertak Needle Sterile Latex Free - [id number] Implanted:Qty: 1 on 05/26/2021 by Harley Phillips DPM at [facility] [place] [employer] [id number] 11/16/2025 [id number] / / [id number] Cage Cage Spine Cervical Cage Cage Spine Lumbar Screw Screw Left: Knee Stimulator Stimulator Implant Description:Medtronic InterS jade implant Decellurized Dermis Implanted:Qty: 1 on 05/26/2021 by Harley Phillips DPM at [facility] [id number] 08/07/2023 / / [id number] Implant Peroneus Longus Allosource - [id number] Implanted:Qty: 1 on 11/26/2022 by Harley Phillips DPM at [facility] Right: Ankle [employer]OSOURCE [id number] 10/10/2027 [id number] / / [id number] Flex Band Dynamic Matrix Implanted:Qty: 1 on 11/26/2022 by Harley Phillips DPM at [facility] Right: Ankle [id number] 08/18/2026 [id number] / [id number] / [id number] Description:Company MedAptus Flexband Dynamic Matrix Implanted:Qty: 1 on 11/26/2022 by Harley Phillips DPM at [facility] Right: Ankle [id number] 08/18/2026 [id number] / [id number] / Description:carlosn [employer] Procedures Procedure Name Priority Date/Time Associated Diagnosis Comments COLLECT.CAPILLARY (FNGR,HEEL,EAR) Routine 09/06/2024 2:18 PM SLUBBER TENDER Uncontrolled type 2 diabetes mellitus with hyperglycemia (CMS/HCC HHS/HCC) GLUCOSE BLOOD, MONITOR DEVICE Routine 09/06/2024 Uncontrolled type 2 diabetes mellitus with hyperglycemia (CMS/HCC HHS/HCC) HEMOGLOBIN, GLYCOSYLATED Routine 09/06/2024 Uncontrolled type 2 diabetes mellitus with hyperglycemia ([facility] HHS/HCC) HOME SLEEP STUDY - WATCHPAT Routine 08/07/2024 11:25 AM SLUBBER TENDER GERMAN (obstructive sleep apnea) US THYROID Routine 07/18/2024 12:25 PM CDT Right thyroid nodule DIABETIC RETINOPATHY EXAM (NEGATIVE)(SCAN ORDER) Routine 06/20/2023 from Last 3 Months or Most Recently Relevant to Health Maintenance Results * A1C (BACK OFFICE) (09/06/2024) HGB A1C 7.0 % [address] [place] 09/06/2024 us Eleanor Dodge MD LABORATORY Final Re sult [address], [place] [address] [place] [address], * (ABNORMAL) GLUCOSE, BLOOD FINGERSTICK (09/06/2024) GLUCOSE WHOLE BLOOD 327(A) 70 - 100 mg/dL [address] [place] 09/06/2024 Eleanor Dodge MD LABORATORY Final Re sult [address], [place] [address] [place] [address], * Home Sleep Study - WatchPat (68484/[id number]) (08/07/2024 11:25 AM SLUBBER TENDER) 08/07/2024 11:2 5 AM SLUBBER TENDER Narrative ESCRIPTION - 10/02/2024 10:31 AM SLUBBER TENDER Patient Name: NILES PARRA Date of : 1970 Account: [id number] Facility: [facility] Location: [facility] Date of Service: 08/07/2024 Sleep Study WATCHPAT SLEEP STUDY REPORT REFERRING PHYSICIAN: ??Laura Lim MD. DATE OF PROCEDURE: ??08/07/2024. REASON FOR STUDY: ??Suspected sleep apnea. CLINICAL SUMMARY: ??Excessive daytime sleepiness. ??Height is 5 feet 7 inches. ??Weight is 229 pounds. ??Body mass index (BMI) is 36. ??Less than 26 is recommended. METHODOLOGY: ??WatchPAT device was used during the study. ??Based on the review of the recorded signals, the study quality was adequate for interpretation. ??Data were interpreted following standard AASM rule 1B criteria utilizing the 30% reduction in airflow resulting in at least a 4% desaturation definition for hypopnea. SLEEP ARCHITECTURE SUMMARY: ??Total recording time was 8 hours and 50 minutes. ??Total sleep time was 7 hours and 37 minutes. ??Total number of wakes throughout the night was 8. ??The percentage of time spent asleep was 86.29%. ??The percentage of time spent awake was 13.71%. ?? The percentage of time in REM sleep was 11.92%. ??The percentage of time in light sleep was 35.94%. ??The percentage of time in deep sleep was 12.14%. ??Latency to sleep onset was 22 minutes, normal. ??Latency to REM sleep was 109 minutes, normal. RESPIRATORY INDICES: 1. ??Total RDI was 3.7 per hour. ??RDI during REM was 9 per hour. ??RDI during non-REM was 3 per hour. 2. ??Total AHI was 0.5 per hour. ??AHI during REM was zero per hour. ?? AHI during non-REM was 0.6 per hour. 3. ??Total CHRIS was 0.5 per hour. ??CHRIS during REM was zero per hour. ?? CHRIS during non-REM was 0.6 per hour. OXYGEN SATURATION SUMMARY: 1. ??Mean oxygen saturation was 94%. 2. ??Minimum oxygen saturation was 90%. 3. ??Maximum oxygen saturation was 98%. 4. ??Oxygen saturation was less than 90% for 0% of the total sleep time. 5. ??Oxygen saturation was less than 88% for 0% of the total sleep time. PULSE RATE /CARDIAC EVENTS: 1. ??Mean pulse rate was 80 beats per minute. 2. ??Minimum pulse rate was 69 beats per minute. 3. ??Maximum pulse rate was 98 beats per minute. 4. ??No arrhythmia was noted. 5. ??AFib total duration none detected. ??AFib longest duration not detected. ??Premature beats per minute, less than 0.1. BODY POSITION: 1. ??The patient was supine for 0.3 minutes/0.1% of the total sleep time. 2. ??The patient was non-supine for 457.1 minutes/99.9% of the total sleep time with RDI of 3.7 per hour and AHI of 0.5 per hour and CHRIS of 0.5 per hour. SNORING STATISTICS: ??The mean decibel level for the entire sleep was 47. IMPRESSION: ??There is no evidence of obstructive sleep apnea. SPECIAL RECOMMENDATIONS: ??Check TSH. GENERAL RECOMMENDATIONS: 1. ??Rehabilitation Program Manager the patient to lose weight to maintain a normal BMI. 2. ??Encourage the patient to adhere to healthy sleep hygiene with regular sleep-wake cycle and adequate total sleep time of 7-8 hours. 3. ??Caution the patient against the use of sedative medications, alcohol, nicotine, caffeine as these can exacerbate an underlying sleep disorder, especially when taken during the 4-6 hours before bedtime. 4. ??Advise the patient to avoid operating a motor vehicle or dangerous machinery until daytime sleep-related symptoms have resolved. Signature/Date: ? LAURA LIM D: ??09/05/2024 10:39 PM ??#[id number] T: ??09/05/2024 11:37 PM ??/NET Laura Lim MD SLEEP CENTER ORDERABLES Final Re sult ESCRIPTION * US THYROID (07/18/2024 12:25 PM CDT) Anatomical Region Laterality Modality Neck Ultrasound 07/18/2024 8:42 PM CDT Impressions 07/18/2024 8:45 PM CDT IMPRESSION: 1. ??TR 3 nodule in right thyroid gland. ??Follow-up in one year. Referred By: LAURA LIM Interpreted By: Eddi Boswell MD, 07/18/2024 8:42 PM Narrative 07/18/2024 8:45 PM CDT [facility] [address] [place] [address] IMAGING STUDIES: US THYROID DATE: 07/18/2024 12:05 PM CLINICAL HISTORY: RIGHT THYROID NODULE. Comparison: No comparison FINDINGS: RIGHT THYROID GLAND MEASURES 5.2 x 2.5 x 2.1 cm. LEFT THYROID GLAND MEASURES 4.9 x 1.8 x 1.1 cm. WITHIN THE MID RIGHT LOBE OF THE THYROID GLAND THERE IS A WELL-DEFINED ISOECHOIC NODULE MEASURING 2.4 X 2.0 X 1.9 CM. ??MILD COLOR FLOW TO THIS NODULE. ??NO SHADOWING.. NO DISTINCT ABNORMALITY OF THE LEFT LOBE OF THE THYROID GLAND. Procedure Note Eddi Boswell MD - 07/18/2024 [facility] [address] [address] [place] [id number] IMAGING STUDIES: US THYROID DATE: 07/18/2024 12:05 PM CLINICAL HISTORY: RIGHT THYROID NODULE. Comparison: No comparison FINDINGS: RIGHT THYROID GLAND MEASURES 5.2 x 2.5 x 2.1 cm. LEFT THYROID GLAND MEASURES 4.9 x 1.8 x 1.1 cm. WITHIN THE MID RIGHT LOBE OF THE THYROID GLAND THERE IS A WELL-DEFINEDISOECHOIC NODULE MEASURING 2.4 X 2.0 X 1.9 CM. MILD COLOR FLOW TO THISNODULE. NO SHADOWING.. NO DISTINCT ABNORMALITY OF THE LEFT LOBE OF THE THYROID GLAND. IMPRESSION: 1. TR 3 nodule in right thyroid gland. Follow-up in one year. Referred By: LAURA LIM Interpreted By: Eddi Boswell MD, 07/18/2024 8:42 PM us Laura Lim MD ULTRASOUND Final Result * DIABETIC RETINOPATHY EXAM (NEGATIVE) (06/20/2023) us Doc [facility] Scanned SCANNING Final Resu lt [facility] ONBASE from Last 3 Months or Most Recently Relevant to Health Maintenance [facility] * Full Code (Latest Code Status on File) Date Activated Date Inactivated Comments 11/16/2022 9:39 AM 11/16/2022 2:48 PM * Full Code Date Activated Date Inactivated Comments 04/13/2022 10:04 AM 04/13/2022 2:31 PM * Full Code Date Activated Date Inactivated Comments 05/26/2021 2:16 PM 05/26/2021 5:19 PM Care Teams Investment Specialist Relationship Specialty Start Date End Date Radha Kaminski NP [facility] [place] [phone] PCP - General NURSE PRACTITIONER 04/09/22
--- OUTSIDE RECORDS SUMMARY | 2024-10-17 16:44 | XMS_ITS | Referral Summary ---
Author Organization [facility] Phone Warrior Address [address] [place] [address] Care Team Providers Care Dye Feeder Name Role Phone Radha Kaminski MYRON-RHYTHMIC GYMNASTICS COACH Primary Care Provider [phone] Harmony Mcrae MD Unavailable Source Comments [facility],non-[facility] Affiliates and Associated Physician Practices is amultiple site organization consisting of ambulatory clinics and hospital sitesin [place], [place], [place] and [place]. This disclosure is being madepursuant to the Care Everywhere program and may not contain all information available regarding this patient. Last updated 18.[facility] Allergies Active Allergy Reactions Criticality Noted Date Comments Prochlorperazine Other,Shortness of Breath High 11/26/2016 Lockjaw Other reaction(s): Other (see comments) Lockjaw Lockjaw Lockjaw Medications * Be aware that medications may not be up to date on this document. Alwaysverify current medications with the patient. Medication Sig Dispensed Refills Start Date End Date Status oxyCODONE, immediate release, (ROXICODONE) 5 MG tablet Take 1 (one) tablet by mouth every 4 hours as needed 06/25/2021 Active magnesium oxide (MAG-OX) 400 MG tablet Take 1 (one) tablet by mouth once daily Active albuterol HFA (PROVENTIL; VENTOLIN; PROAIR) 108 (90 Base) MCG/ACT inhaler Inhale 2 (two) puffs by mouth every 4 hours One puff every 4 hours as needed Active montelukast (SINGULAIR) 10 MG tablet Take 1 (one) tablet by mouth once daily Active gabapentin (NEURONTIN) 300 MG capsule Take 1 (one) capsule by mouth 3 times daily 10/08/2021 Active dulaglutide (TRULICITY) 0.75 MG/0.5ML injection Inject 0.5 mL subcutaneously every 7 days Active cetirizine (ZYRTEC ALLERGY) 10 MG gel capsule Take 1 (one) capsule by mouth as needed Active fluticasone propionate (FLONASE) 50 MCG/ACT nasal spray [place] 2 (two) sprays into each nostril once daily Active blood glucose (GlassBoxTOUCH ULTRA) test strip USE TO TEST THREE TIMES A DAY 09/15/2021 Active estradiol (ESTRACE) 2 MG tablet Take 1 (one) tablet by mouth every 24 hours Active Multiple Vitamins-Minerals (MULTI VITAMIN/MINERALS) TABS Take 1 (one) tablet by mouth once daily Active [place]-3 Fatty Acids (FISH OIL) 1000 MG capsule Take 1 (one) capsule by mouth once daily Active Cholecalciferol 1.25 MG (05299 UT) Take 1 capsule by mouth every Tuesday, Tuesday & Tuesday Active Ergocalciferol (VITAMIN D2) 50 MCG (2000 UT) Take 1 tablet by mouth every Tuesday, , & Tuesday Active aspirin EC (Ecotrin) 81 MG tablet Take 1 (one) tablet by mouth once daily Active HYDROcodone ER 24hr (Hysingla ER) 30 MG tablet Take 1 (one) tablet by mouth once daily 04/20/2022 Active buPROPion XL 24hr (Wellbutrin-XL) 150 MG tablet Take 1 (one) tablet by mouth once daily 06/15/2022 Active naloxone HCl (Narcan) 4 MG/0.1ML nasal spray [place] 1 (one) spray into the nose Active icosapent ethyl (Vascepa) 1 g capsule Take 3 (three) capsules by mouth once daily 02/24/2023 Active rosuvastatin (Crestor) 20 MG tablet Take 1 (one) tablet by mouth once daily 02/23/2023 Active methylphenidate ER (Concerta) 54 MG tablet Take 1 (one) tablet by mouth every morning 02/05/2023 Active budesonide-formot mechelle (Symbicort) 160-4.5 MCG/ACT inhaler Inhale 2 (two) puffs by mouth as needed Active cyanocobalamin (Vitamin B-12) 1000 MCG tablet Take 1 (one) tablet by mouth every morning Active ALPRAZolam (Xanax) 0.5 MG tablet Take 1 tablet 3 times a day by oral route as needed. Active cephalexin (Keflex) 500 MG capsule Take 1 capsule 3 times a day by oral route. Active cetirizine (ZyrTEC ALLERGY) 10 MG tablet Take 1 tablet every day by oral route as needed. Active clobetasol (Temovate) 0.05 % cream RUB IN WELL TWICE A DAY TO INVOLVED AREAS OF BODY UNTIL CLEAR Active cyclobenzaprine (Flexeril) 5 MG tablet Take 1 (one) tablet by mouth 3 times daily Active DULoxetine (Cymbalta) 30 MG capsule Take 1 (one) capsule by mouth once daily Active Estradiol (Elestrin) 0.52 MG/0.87 GM (0.06%) Apply 1 pump every day by topical route. Active HYDROcodone-aceta minophen ([place]) 5-325 MG tablet Take 1 (one) tablet by mouth two times daily at 4am and 4pm Active indomethacin (Indocin) 50 MG capsule TAKE 1 CAPSULE BY MOUTH THREE TIMES A DAY ADMINISTER WITH FOOD OR MILK Active mupirocin (Bactroban) 2 % ointment 1 APPLIC TOPICALLY TWICE A DAY Active nystatin (Mycostatin) 148405 UNIT/ML suspension Take 5 mL 4 times a day by oral route for 7 days. Active dulaglutide (Trulicity) 1.5 MG/0.5ML injection Inject 0.5 mL every week by subcutaneous route. Active icosapent ethyl (Vascepa) 1 g capsule Take 2 (two) capsules by mouth 2 times daily 02/24/2023 Active oxyCODONE, immediate release, (Roxicodone) 5 MG tablet Take 1 (one) tablet by mouth two times daily at 4am and 4pm Active HYDROcodone ER 24hr (Hysingla ER) 20 MG tablet Take 1 (one) tablet by mouth every 24 hours Active tiZANidine (Zanaflex) 4 MG tablet Take 1 (one) tablet by mouth every 8 hours as needed for Muscle Spasms 60 tablet 04/22/2023 Active Additional Information Patient not taking.Reported on 10/06/2023 Vraylar 1.5 MG capsule 05/12/2023 Active meloxicam (Mobic) 7.5 MG tablet 06/04/2023 Active glimepiride (Amaryl) 2 MG tablet Take 1 (one) tablet by mouth as needed Active methylPREDNISolon e (Medrol Dosepak) 4 MG tablet Take by mouth as directed Take as directed by mouth per package instructions. 21 tablet 06/07/2023 Active Additional Information Patient not taking.Reported on 10/06/2023 hydroxychloroquin e (Plaquenil) 200 MG tablet Take 1 (one) tablet by mouth 2 times daily 60 tablet 1 06/07/2023 Active ciprofloxacin (Cipro) 500 MG tablet Take 1 (one) tablet by mouth 2 times daily 06/29/2023 Active cyclobenzaprine (Flexeril) 10 MG tablet 1 TABLET 3 TIMES A DAY NEEDED 07/01/2023 Active Magnesium Oxide -Mg Supplement 400 (240 Mg) MG 08/01/2023 Active meloxicam (Mobic) 7.5 MG tablet Take 1 (one) tablet by mouth once daily 07/06/2023 Active Methylphenidate HCl (methylphenidate CR) 54 MG tablet Take 1 (one) tablet by mouth every morning 06/07/2023 Active methylphenidate ER (Concerta) 36 MG tablet Take 1 (one) tablet by mouth every morning 08/17/2022 Active metroNIDAZOLE vaginal (Metrogel - Vaginal) 0.75 % vaginal gel INSERT ONE APPLICATORFUL VAGINALLY ONCE NIGHTLY FOR FIVE DAYS 07/13/2023 Active triamcinolone acetonide (Kenalog) 0.1 % cream Apply to affected area 2 times daily Active cariprazine (Vraylar) 3 MG capsule 06/20/2023 Active dulaglutide (Trulicity) 1.5 MG/0.5ML injection Inject 0.5 mL subcutaneously every 7 days 09/09/2023 Active rosuvastatin (Crestor) 40 MG tablet 07/26/2023 Active predniSONE (Deltasone) 5 MG tablet 1 tab po q day as needed 30 tablet 11/08/2023 Active Active Problems No known active problems Social [...] Comments Blood Pressure 122/68 10/06/2023 2:03 PM CUSTOMER EXPERIENCE STRATEGIST Pulse 79 10/06/2023 2:03 PM CUSTOMER EXPERIENCE STRATEGIST Temperature 36.6 ??C (97.9 ??F) 01/07/2022 2:03 PM CD T Respiratory Rate 16 08/02/2023 2:35 PM CUSTOMER EXPERIENCE STRATEGIST Oxygen Saturation 97% 08/02/2023 2:35 PM CUSTOMER EXPERIENCE STRATEGIST Inhaled Oxygen Concentration - - Weight 93.9 kg (207 lb) 10/06/2023 2:03 PM CUSTOMER EXPERIENCE STRATEGIST Height 170.2 cm (5' 7 ) 10/06/2023 2:03 PM CUSTOMER EXPERIENCE STRATEGIST Body Mass Index 32.42 10/06/2023 2:03 PM CUSTOMER EXPERIENCE STRATEGIST Plan of Treatment Not on file Procedures Procedure Name Priority Date/Time Associated Diagnosis Comments COMPREHENSIVE METABOLIC PANEL Routine 08/02/2023 3:29 PM CUSTOMER EXPERIENCE STRATEGIST Arthralgia, unspecified joint HEPATITIS SCREEN ACUTE ([facility]) Routine 08/02/2023 3:28 PM CUSTOMER EXPERIENCE STRATEGIST Arthralgia, unspecified joint from Last 3 Months or Most Recently Relevant to Health Maintenance Results * (ABNORMAL) COMPREHENSIVE METABOLIC PANEL (08/02/2023 3:29 PM CUSTOMER EXPERIENCE STRATEGIST) Glucose 95 70 - 99 mg/dL [facility] [...] BLOOD SPECIMEN / Unknown 08/02/2023 3:29 PM CUSTOMER EXPERIENCE STRATEGIST 08/02/2023 Narrative Resulting Agency Comment Lab Testing performed at: [facility] [address] ??[facility] [phone] Harmony Mcrae MD LAB - CHEMISTRY KYRIE BELTRAN [facility] INSURANCE BILL [address] [place] [address] * HEPATITIS SCREEN ACUTE ([facility]) (08/02/2023 3:28 PM CUSTOMER EXPERIENCE STRATEGIST) Hepatitis A Virus Antibody IgM Negative Negative [facility] INSURANCE BILL Hepatitis B Virus Surface Antigen Negative Negative [facility] INSURANCE BILL Hepatitis B Core Virus Antibody IgM Negative Negative [facility] INSURANCE BILL Hepatitis C Antibody Non Reactive Non Reactive [facility] INSURANCE BILL Blood BLOOD SPECIMEN / Unknown 08/02/2023 3:28 PM CUSTOMER EXPERIENCE STRATEGIST 08/02/2023 Narrative Resulting Agency Comment Lab Testing performed at: [facility] [address] ??[facility] [phone] Harmony Mcrae MD LAB - CHEMISTRY KYRIE BELTRAN [facility] INSURANCE BILL [address] [place] [address] from Last 3 Months or Most Recently Relevant to Health Maintenance Care Teams Dye Feeder Relationship Specialty Start Date End Date Radha Kaminski APRN-RHYTHMIC GYMNASTICS COACH [address] [address] PCP - General Nurse Practitioner Family 12/03/21 [place] [address] [place] [address] [place] [id number] Rheumatology 12/03/21
--- OUTSIDE RECORDS SUMMARY | 2024-10-17 16:44 | XMS_ITS | Encounter Summary ---
Author Organization [facility] Address [address] [place] [address]. [place] [id number] [place], [place] [id number] Care Team Providers Care Fractionation Plant Supervisor Name Role Phone Aneesh Dickens MD Primary Care Provider Radha Kaminski NP Primary Care Provider [phone] Encounter Details Date Type Department Care Team (Late st Contact Info) Description 05/19/2021 Prep for Procedure [facility] [address] [place] [address] Harley Phillips, OLU [address] [place] [id number] Social History Tobacco Use Types Packs/Day Years Used Date Smoking Tobacco: Never Smokeless Tobacco: Never Alcohol Use Standard Drinks/Week Comments Not Currently 0 (1 standard drink = 0.6 oz pur e alcohol) PHQ-2 Answer Date Recorded PHQ-2 Score - If the patient scores above 3, please move on to questions 3-9 0 08/12/2020 Comments No Sex and Gender Information Value Date Recorded Sex Assigned at Female 08/12/2020 10:34 AM NUCLEAR CONTROL OPERATOR Legal Sex Female 10:58 PM NUCLEAR CONTROL OPERATOR Gender Identity Female 08/12/2020 10:34 AM NUCLEAR CONTROL OPERATOR Sexual Orientation Straight 08/12/2020 10 :34 AM NUCLEAR CONTROL OPERATOR COVID-19 Exposure Response Date Recorded In the last month, have you been in contact with someone who was confirmed or suspected to have Coronavirus / COVID-19? No / Unsure 05/19/2021 3:46 PM CDT documented as of this encounter Plan of Treatment Upcoming Encounters Date Type Department Care Team (Late st Contact Info) Description 12/07/2024 2:00 PM CDT Office Visit [facility] - [place] [address] [place] [address] Eleanor Dodge MD [address] [place], [place] [phone] documented as of this encounter Results * PRE-SURGICAL/PRE-PROCEDURE CORONAVIRUS (COVID 19) (05/23/2021 9:06 AM CDT) SPECIMEN SOURCE NASAL 8:58 AM CDT [facility] CORONAVIRUS SARS COV 2 PCR (RESP) NEGATIVE NEGATIVE 05/24/2021 11:44 AM CDT [facility] Comment: THE SARS-CoV-2 TEST HAS BEEN AUTHORIZED BY THE FDA UNDER AN EUA FOR USE BY AUTHORIZED LABORATORIES. PERFORMED BY NUCLEIC ACID AMPLIFICATION PCR FIRST TEST YES 05/23/2021 8:58 AM CDT [facility] EMPLOYED IN HEALTHCARE NO 05/23/2021 8:58 AM CDT [facility] SYMPTOMATIC DEFINED BY CDC NO 05/23/2021 8:58 AM CDT [facility] HOSPITALIZATION STATUS NO 05/23/2021 8:58 AM CDT [facility] PATIENT IN ICU NO 05/23/2021 8:58 AM CDT [facility] RESIDENT OF [facility] CARE NO 05/23/2021 8:58 AM CDT [facility] NOT 05/23/2021 8:58 AM CDT [facility] NASAL STRUCTURE / Unknown 05/23/2021 9:06 AM CDT [facility] MICROBIOLOGY - GENERAL ORDERABLE S Final Result [facility] (H) [facility] [address] [place] [address], [place] [phone] [facility] (D) [facility] [address] [place] [address], [place] [phone] documented in this encounter Visit Diagnoses Diagnosis Pre-op testing- Primary Preoperative examination, unspecified documented in this encounter Additional Health Concerns Infection Onset Date Last Indicated Resolved Time COVID-19 Rule Out 05/23/2021 05/23/2021 05/24/2021 11:44 AM CDT COVID-19 Rule Out 04/09/2022 04/09/2022 04/11/2022 12:05 PM CDT documented as of this encounter Care Teams Fractionation Plant Supervisor Relationship Specialty Start Date End Date Aneesh Dickens MD [address] [place], [place] [phone] PCP - General FAMILY PRACTICE 04/10/19 04/08/22 Radha Kaminski NP [facility] [place] [id number] PCP - General NURSE PRACTITIONER 04/09/22 documented as of this encounter
--- OUTSIDE RECORDS SUMMARY | 2024-10-17 16:44 | XMS_ITS ---
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 Role Phone Roland Rojas DO Primary Care Provider Unavail able Julian Cummings Unavailable [phone] Allergies Allergen (clinical drug ingredient) Drug/Non Drug Allergy documented on EMR Reaction Allergy Type Onset Date Status Compazine Unknown Drug Allergy 12/21/2023 Active REASON FOR VISIT f/u bipolar d/o, anxiety Medications Medication SIG (Take, Route, Frequency, Duration) Notes Start Date End Date Status Vraylar 3 mg 1 capsule Oral once daily for 90 days Active Methylphenidate HCl ER 36 MG 2 tablet every morning Oral once a day for 30 days fill 09/14/24 09/26/2024 Active Magnesium Oxide (Elemental) 400 MG Oral *Reorder from [facility] for eRx and Interaction Alerts* 12/21/2023 Active buPROPion HCl ER (XL) 150 MG Oral 12/21/2023 Active tiZANidine HCl 4 MG Oral 12/21/2023 Active Glimepiride 2 MG Oral 12/21/2023 Ac tive Montelukast Sodium 10 MG Oral 12/21/2023 Active Rosuvastatin Calcium 40 MG Oral 12/21/2023 Active ICOSAPENT ETHYL 1 GRAM CAPSULE *Reorder from [facility] for eRx and Interaction Alerts* 12/21/2023 Active oxyCODONE HCl 5 MG Oral 12/21/2023 Active Gabapentin 300 MG Oral 12/21/2023 A ctive Trulicity 1.5 mg/0.5 mL Subcutaneous 12/21/2023 Active Estradiol 2 MG Oral 12/21/2023 Acti ve OneTouch Ultra In Vitro 12/21/2023 Acti ve Social History Sex Assigned At : Social History Observation Description Sex Assigned At Female Vital Signs Blood pressure systolic 160 mm Hg 09/26/19 25 Blood pressure diastolic 79 mm Hg 025 Heart Rate 98 /min 09/26/2024 Weight 234.2 lbs 09/26/2024 Weight-kg 106.23 kg 09/26/2024 Height 67.00 in 09/26/2024 Height-cm 170.18 cm 09/26/2024 BMI 36.68 kg/m2 09/26/2024 Encounters Encounter Location Date Provider Diagnosis [facility] [address] [place] [address] [place] [address] 09/26/2024 Julian Cummings Attention-deficit hyperactivity disorder, combined type F90.2 and Bipolar disorder, current episode depressed, moderate F31.32 Assessments Encounter Date Diagnosis (ICD Code) Assessment Notes Treatment Notes Treatment Clinical Notes Section Notes 09/26/2024 Attention-deficit hyperactivity disorder, combined type (ICD-10 - F90.2) 1. Depression: - Patient reports feeling more depressed over the last 6 months. - Currently on Cymbalta 30 mg twice daily and Vraylar 3 mg. 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 Plan: - Continue current medications. - Monitor mood and depressive symptoms closely. - Consider alternative antidepressant options if no improvement in symptoms. 2. Neuropathy and Fibromyalgia: - Patient is on Cymbalta 30 mg twice daily for neuropathy pain and fibromyalgia. - Reports exhaustion from Cymbalta. - Also on Gabapentin, but it's not enough for pain management. Plan: - Continue current medications. - Consider adjusting Gabapentin dosage or exploring alternative pain management options. - Monitor patient's response to Cymbalta and discuss potential adjustments if exhaustion persists. 3. ADHD: - Patient reports Concerta (Methylphenidate) is working well for ADHD. - Prescription was filled on 08/23 and again on 09/03, but patient did not receive the latter. Plan: - Monitor patient's response to Concerta and adjust dosage if necessary. 4. Bupropion: - Patient confirms they are still taking bupropion. Plan: - Continue current medication. - Monitor patient's response to bupropion and adjust dosage if necessary. 09/26/2024 Bipolar disorder, current episode depressed, moderate (ICD-10 - F31.32) 1. Depression: - Patient reports feeling more depressed over the last 6 months. - Currently on Cymbalta 30 mg twice daily and Vraylar 3 mg. 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 Plan: - Continue current medications. - Monitor mood and depressive symptoms closely. - Consider alternative antidepressant options if no improvement in symptoms. 2. Neuropathy and Fibromyalgia: - Patient is on Cymbalta 30 mg twice daily for neuropathy pain and fibromyalgia. - Reports exhaustion from Cymbalta. - Also on Gabapentin, but it's not enough for pain management. Plan: - Continue current medications. - Consider adjusting Gabapentin dosage or exploring alternative pain management options. - Monitor patient's response to Cymbalta and discuss potential adjustments if exhaustion persists. 3. ADHD: - Patient reports Concerta (Methylphenidate) is working well for ADHD. - Prescription was filled on 08/23 and again on 09/03, but patient did not receive the latter. Plan: - Monitor patient's response to Concerta and adjust dosage if necessary. 4. Bupropion: - Patient confirms they are still taking bupropion. Plan: - Continue current medication. - Monitor patient's response to bupropion and adjust dosage if necessary. Plan Of Treatment Medication Medication Name Sig Start Date Stop Date Notes Vraylar 3 mg 1 capsule Oral once daily for 90 days Methylphenidate HCl ER 36 MG 2 tablet ev moshe morning Oral once a day for 30 days 09/26/2024 fill 09/14/24 Next Appt Details Follow Up: 3 Months, Reason: f/u adhd, bipolar d/o Provider Name:Julian shaw, 11/22/2024 01:15:00 PM, [address], [facility] [address], [place], [address], Progress Notes * IZABELA PARRA GDOB:1969 (54 yo F)Acc No.[id number]:09/26/2024 Patient:?IZABELA PARRA Provider:?LEOLA HERNANDEZ :1970???Age:54 Y???Sex:Female D ate:09/26/2024 Address:[address] [place], [place] [address] [id number] Pcp:Roland Rojas DO Subjective: * Chief Complaints: * ???F/u bipolar d/o, anxiety * HPI: ???Depression screening:? the note is transcribed using speech recognition software. It is a reflection of a visit with the patient. It might have some inaccuracy, including medication names and transcribing errors, though efforts have been made to correct them. Chief complaint- Increased depression, pain management issues. The patient reports experiencing increased depression over the past 6 months, expressing a dislike for the holidays. Currently, the patient is taking Vraylar 3 mg for mood stabilization. For neuropathy pain and fibromyalgia, the patient is taking Cymbalta (two 30 mg pills daily) but reports experiencing exhaustion as a side effect. They have attempted to adjust the timing of the medication without success. The patient has a history of previous Cymbalta use, which was discontinued when they started attending the current clinic due to perceived aggression. Additionally, they are taking Gabapentin for neuropathy pain and fibromyalgia but feel it is not providing adequate relief. Regarding ADHD management, the patient reports that Concerta (Methylphenidate) is working well. They mention a recent issue with their prescription refill, stating it was filled on 08/23 and again on 09/03, but they did not receive the latter refill despite someone signing for it. The patient confirms they are still taking bupropion. The patient notes that their primary care doctor was surprised by the number of their medical conditions and that they see specialists to avoid hassles. ?PHQ-9?Little interest or pleasure in doing things?Nearly every day,?Feeling down, depressed, or hopeless?Nearly every day,?Trouble falling or staying asleep, or sleeping too much?Nearly every day,?Feeling tired or having little energy?Nearly every day,?Poor appetite or overeating?Not at all,?Feeling bad about yourself or that you are a failure, or have let yourself or your family down?Nearly every day,?Trouble concentrating on things, such as reading the newspaper or watching television?Nearly every day,?Moving or speaking so slowly that other people could have noticed; or the opposite, being so fidgety or restless that you have been moving around a lot more than usual?Not at all,?Thoughts that you would be better off or of hurting yourself in some way?Not at all,?Total Score?18,?Interpretation?Moderately Severe Depression.?Intervention?Depression Screening Findings?Positve,?Follow-Up for Depression?Mental health treatment assessment, Patient follow-up to return when and if necessary,?Suicide Risk Assessment Performed?09/26/2024 ,?Additional Evaluation for Depression?Psychiatric interview and evaluation,?Name of the standardized tool used for adult depression screening:?Patient Health Questionnaire (PHQ-9).?History of Presenting Problem:?Depression?no motivation, lack of self care.? depression symptoms worse around the holidays.?.?Mood lability?bipolar d/o irritability.?ADHD?Onset: years ago irritability, poor motivation, talks excessively.?Past Medication history:?duloxetine- sedation, bupropion xl, abilify. * Medical History:? * Surgical History:? * Hospitalization/Major Diagno stic Procedure:? * Family History:?Son: Attenti on deficit hyperactivity disorder .? * Medications:?TakingVraylar 3 mg Capsule 1 capsule Oral once daily Methylphenidate HCl ER 36 MG Tablet Extended Release 2 tablet every morning Oral once a day , stop date 10/14/2024, Notes to Pharmacist: fill 09/14/24Estradiol 2 MG Tablet Oral OneTouch Ultra Strip In Vitro Trulicity 1.5 mg/0.5 mL Solution Pen-injector Subcutaneous Montelukast Sodium 10 MG Tablet Oral Rosuvastatin Calcium 40 MG Tablet Oral ICOSAPENT ETHYL 1 GRAM CAPSULE , Notes to Pharmacist: *Reorder from [facility] for eRx and Interaction Alerts*Gabapentin 300 MG Capsule Oral oxyCODONE HCl 5 MG Tablet Oral Glimepiride 2 MG Tablet Oral Magnesium Oxide (Elemental) 400 MG Tablet Oral , Notes to Pharmacist: *Reorder from [facility] for eRx and Interaction Alerts*buPROPion HCl ER (XL) 150 MG Tablet Extended Release 24 Hour Oral tiZANidine HCl 4 MG Tablet Oral Taking Vraylar 3 mg Capsule 1 capsule Oral once daily Taking Methylphenidate HCl ER 36 MG Tablet Extended Release 2 tablet every morning Oral once a day , stop date 10/14/2024, Notes to Pharmacist: fill 09/14/24Taking Estradiol 2 MG Tablet Oral Taking OneTouch Ultra Strip In Vitro Taking Trulicity 1.5 mg/0.5 mL Solution Pen-injector Subcutaneous Taking Montelukast Sodium 10 MG Tablet Oral Taking Rosuvastatin Calcium 40 MG Tablet Oral Taking ICOSAPENT ETHYL 1 GRAM CAPSULE , Notes to Pharmacist: *Reorder from [facility] for eRx and Interaction Alerts*Taking Gabapentin 300 MG Capsule Oral Taking oxyCODONE HCl 5 MG Tablet Oral Taking Glimepiride 2 MG Tablet Oral Taking Magnesium Oxide (Elemental) 400 MG Tablet Oral , Notes to Pharmacist: *Reorder from [facility] for eRx and Interaction Alerts*Taking buPROPion HCl ER (XL) 150 MG Tablet Extended Release 24 Hour Oral Taking tiZANidine HCl 4 MG Tablet Oral DiscontinuedRosuvastatin Calcium 20 MG Tablet Oral Cyclobenzaprine HCl 10 MG Tablet Oral Clobetasol Propionate 0.05% Cream External Methylphenidate HCl ER 36 MG Tablet Extended Release 2 tablet every morning Oral once a day Medication List reviewed and reconciled with the patientDiscontinued Rosuvastatin Calcium 20 MG Tablet Oral Discontinued Cyclobenzaprine HCl 10 MG Tablet Oral Discontinued Clobetasol Propionate 0.05% Cream External Discontinued Methylphenidate HCl ER 36 MG Tablet Extended Release 2 tablet every morning Oral once a day Medication List reviewed and reconciled with the patient * Allergies:?Compazine: Allerg y - Onset Date 12/21/2023no[Allergies Verified] Objective: * Vitals:?BP:160/79mm Hg, HR:9 8/min, Wt:234.2lbs, Wt-k.23 kg, Ht: 67.00 in, Ht-cm: 170.18 cm, BMI:36.68Index, Body Surface Area: 2.24. * Examination: ???Psychiatry: ?Appearance:?well-groomed, well-nourished, ....?Abnormal body movements:?none.?Affect / mood:?appropriate, full range.?Attention:?good.?Attitude:?cooperative.?Suicidal ideation:?none.?Memory status:?no impairment noted.?Degree of awareness of surroundings:?within normal limits.?Delusions:?no.?Hallucinations:?no.?Insight:?good.?Intellectual functioning:?no impairment noted.?Judgement:?good.?Orientation:?awake, alert and oriented x 3.?Perceptual disorders:?no perceptual disorder noted.?Psychomotor activity:?within normal range.?Speech / language:?appropriate pitch/modulation, clear and coherent, normal rate, volume, and articulation (RVR), proper grammar used.?Thought content:?appropriate.?Thought process:?intact.?General Examination: ???- Mental Status Examination: - Patient expressed feelings of depression, particularly exacerbated during the holiday season. - Reports increased depressive symptoms over the last 6 months. - Described significant life stressors including the of an adopted son. - History of being described as aggressive in previous medical interactions. - Physical Examination: - Patient has a history of neuropathy and fibromyalgia. - No acute distress observed during the visit. Assessment: * Assessment: 1.?Attention-deficit hyperac tivity disorder, combined type - F90.2 (Primary)???2.?Bipolar disorder, current episode depressed, moderate - F31.32??? 1. Depression: - Patient reports feeling more depressed over the last 6 months. - Currently on Cymbalta 30 mg twice daily and Vraylar 3 mg. 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 Plan: - Continue current medications. - Monitor mood and depressive symptoms closely. - Consider alternative antidepressant options if no improvement in symptoms. 2. Neuropathy and Fibromyalgia: - Patient is on Cymbalta 30 mg twice daily for neuropathy pain and fibromyalgia. - Reports exhaustion from Cymbalta. - Also on Gabapentin, but it's not enough for pain management. Plan: - Continue current medications. - Consider adjusting Gabapentin dosage or exploring alternative pain management options. - Monitor patient's response to Cymbalta and discuss potential adjustments if exhaustion persists. 3. ADHD: - Patient reports Concerta (Methylphenidate) is working well for ADHD. - Prescription was filled on 08/23 and again on 09/03, but patient did not receive the latter. Plan: - Monitor patient's response to Concerta and adjust dosage if necessary. 4. Bupropion: - Patient confirms they are still taking bupropion. Plan: - Continue current medication. - Monitor patient's response to bupropion and adjust dosage if necessary. Plan: * Treatment: 2.?Bipolar disorder, current episode depressed, moderate? Continue Vraylar Capsule, 3 mg, 1 capsule, Oral, once daily, 90 days, 90, Refills 1.?? * Procedure Codes:?30164 BEHAV ASSMT W/SCORE & DOCD/STAND INSTRUMENT * Follow Up:?3 Months (Reason: f/u adhd, bipolar d/o) * Billing Information: * Visit Code:? 37538 OFFICE OUTPATIENT VISIT 25 MINUTES DETAILED HISTORY AND EXAM/MODERATE MEDICAL DECISION MAKING. * Procedure Codes:? 49252 BEHAV ASSMT W/SCORE & DOCD/STAND INSTRUMENT. * ERY CADDY Sign off status: Completed true * Provider:?LEOLA HERNANDEZ Date:?04/2025 Generated for Dilip brown/Elen/eTransmitting on:?10/17/2024 04:44 PM GROCERY CADDY History and Physical Notes * HPI (History of Present Illness) Category Sub-Category Detail Notes Category Not es History of Presenting Problem Depression no motivation, lack of self care. depression symptoms worse around the holidays. Mood lability bipolar d/o irritabi lity ADHD Onset: years ago irr itability, poor motivation, talks excessively Depression screening PHQ-9 Little inte rest or pleasure in doing things: Nearly every day Feeling down, depressed, or hopeless: Ne ryan every day Trouble falling or staying asleep, or sl eeping too much: Nearly every day Feeling tired or having little energy: N early every day Poor appetite or overeating: Not at all Feeling bad about yourself o r that you are a failure, or have let yourself or your family down: Nearly every day Trouble concentrating on thi ngs, such as reading the newspaper or watching television: Nearly every day Moving or speaking so slowly that other people could have noticed; or the opposite, being so fidgety or restless that you have been moving around a lot more than usual: Not at all Thoughts that you would be b mirza off or of hurting yourself in some way: Not at all Total Score: 18 Interpretation: Moderately Severe Depres jennie Intervention Depression Screening Findings: P ositve Follow-Up for Depression: [facility] treatment assessment, Patient follow-up to return when and if necessary Suicide Risk Assessment Performed: 09/26 Additional Evaluation for De pression: Psychiatric interview and evaluation Name of the standardized too l used for adult depression screening:: Patient Health Questionnaire (PHQ-9) Examination Category Sub-Category Detail Notes Category Not es Psychiatry Appearance: well-groomed, well-nourished , ... Attitude: cooperative Psychomotor activity: within normal rang e Abnormal body movements: none Attention: good Degree of awareness of surroundings: wit hin normal limits Orientation: awake, alert and bo ented x 3 Affect / mood: appropriate, full ra nge Speech / language: appropriate pitch/mo dulation, clear and coherent, normal rate, volume, and articulation (RVR), proper grammar used Insight: good Judgement: good Thought process: intact Thought content: appropriate Perceptual disorders: no perceptual diso rder noted Suicidal ideation: none Intellectual functioning: no impairment noted Memory status: no impairment noted Delusions: no Hallucinations: no General Examination - Mental Status Examination: - Patient expressed feelings of depression, particularly exacerbated during the holiday season. - Reports increased depressive symptoms over the last 6 months. - Described significant life stressors including the of an adopted son. - History of being described as aggressive in previous medical interactions. - Physical Examination: - Patient has a history of neuropathy and fibromyalgia. - No acute distress observed during the visit.
--- OUTSIDE RECORDS SUMMARY | 2024-10-17 16:44 | XMS_ITS | Data Portability ---
Author Organization [facility] OFFICE Address [address] [place] [address] Assessment Encounter Date Assessment Date Assessment LastModified by Organization Details LastModified Time 02/03/2022 02/03/2022 Discussed with patient findings, diagnosis, and prognosis. Discussed evaluation and treatment options including risks and benefits with patient, and patient expressed understanding. The following interventions were recommended: heart healthy low-fat, low-sodium diet, avoid strenuous exercise pending completion of cardiovascular evaluation,mainta in appropriate weight, continue current medications, and medical follow-up as noted. [email or web address] Not available 02/03/2022 11:19:05 03/03/2022 03/03/2022 Discussed with patient findings, diagnosis, and prognosis. Discussed evaluation and treatment options including risks and benefits with patient, and patient expressed understanding. The following interventions were recommended: heart healthy low-fat, low-sodium diet, continue regular exercise,maintain appropriate weight, continue current medications, and medical follow-up as noted. [email or web address] Not available 03/03/2022 17:54:51 05/05/2022 05/05/2022 Discussed with patient findings, diagnosis, and prognosis. Discussed evaluation and treatment options including risks and benefits with patient, and patient expressed understanding. The following interventions were recommended: heart healthy low-fat, low-sodium diet, continue regular exercise,maintain appropriate weight, continue current medications, and medical follow-up as noted. [email or web address] Not available 05/05/2022 15:03:06 10/27/2022 10/27/2022 Discussed with patient findings, diagnosis, and prognosis. Discussed evaluation and treatment options including risks and benefits with patient, and patient expressed understanding. The following interventions were recommended: heart healthy low-fat, low-sodium diet, continue regular exercise,maintain appropriate weight, continue current medications, and medical follow-up as noted. [email or web address] Not available 10/27/2022 12:40:07 01/05/2023 01/05/2023 Discussed with patient findings, diagnosis, and prognosis. Discussed evaluation and treatment options including risks and benefits with patient, and patient expressed understanding. The following interventions were recommended: heart healthy low-fat, low-sodium diet, continue regular exercise,maintain appropriate weight, continue current medications, and medical follow-up as noted. [email or web address] Not available 01/05/2023 14:29:08 Plan of Treatment Reminders Order Date Submit Date Provider Last Modified By Organization Details Last Modified Time Details Appointments None recorded. Lab None recorded. Referral None recorded. Procedures None recorded. Surgeries None recorded. Imaging None recorded. Medication Orders magnesium oxide 400 mg (241.3 mg magnesium) tablet 2021 022 [email or web address] [facility], [address] [place] [address], [id number], 11:14:53 atorvastati n 80 mg tablet 2021 022 [email or web address] [facility], [address] [place] [address], [address], 17:40:55 icosapent ethyl 1 gram capsule 2021 022 [facility], [address] [place] [address], [address], 11:47:50 rosuvastati n 20 mg tablet 2021 022 [email or web address], [address] [place] [address], [address], 17:57:13 Patient TargetsNo targets recorded. Patient Instructions Encounter Date Encounter Id Patient Instructions Last Modified By Organization Details Last Modified Time 02/03/2022 [id number] dizziness: care instructions [email or web address] Not available 02/03/2022 11:47:45 leg and ankle edema: care instructions [email or web address] Not available 02/03/2022 11:47:46 high blood pressure: care instructions Not available 02/03/2022 11:47:45 learning about high blood pressure [email or web address] Not available 02/03/2022 11:47:46 aortic valve regurgitation: care instructions [email or web address] Not available 02/03/2022 11:47:45 03/03/2022 [id number] leg and ankle edema: care instructions [email or web address] Not available 03/03/2022 17:57:11 dizziness: care instructions [email or web address] Not available 03/03/2022 17:57:11 high blood pressure: care instructions [email or web address] Not available 03/03/2022 17:57:11 learning about high blood pressure [email or web address] Not available 03/03/2022 17:57:11 aortic valve regurgitation: care instructions [email or web address] Not available 03/03/2022 17:57:11 05/05/2022 [id number] leg and ankle edema: care instructions [email or web address] Not available 05/05/2022 15:19:08 dizziness: care instructions [email or web address] Not available 05/05/2022 15:19:08 high blood pressure: care instructions [email or web address] Not available 05/05/2022 15:19:08 learning about high blood pressure [email or web address] Not available 05/05/2022 15:19:08 aortic valve regurgitation: care instructions [email or web address] Not available 05/05/2022 15:19:08 10/27/2022 [id number] leg and ankle edema: care instructions [email or web address] Not available 10/27/2022 12:49:16 dizziness: care instructions [email or web address] Not available 10/27/2022 12:49:16 high blood pressure: care instructions [email or web address] Not available 10/27/2022 12:49:16 learning about high blood pressure [email or web address] Not available 10/27/2022 12:49:16 aortic valve regurgitation: care instructions [email or web address] Not available 10/27/2022 12:49:16 01/05/2023 [id number] leg and ankle edema: care instructions [email or web address] Not available 01/05/2023 14:34:19 dizziness: care instructions [email or web address] Not available 01/05/2023 14:34:18 high blood pressure: care instructions [email or web address] Not available 01/05/2023 14:34:19 learning about high blood pressure [email or web address] Not available 01/05/2023 14:34:18 aortic valve regurgitation: care instructions [email or web address] Not available 01/05/2023 14:34:18 Reason for Referral None Reported. Results Created Date Observation Date Name Description Value Unit Range Abnormal Flag Note LastModifiedBy Organization Detail LastModifiedTime 01/14/20 22 01/13/2022 elect rocar diogr am No observ ation record ed. [email or web address] Not Available 2021 17:08:44 02/12/20 22 01/26/2022 exerc ise stres s test No observ ation record ed. Not Available 2021 09:26:53 02/18/20 22 02/10/2022 US, echoc ardio gram No observ ation record ed. [facility] [address] [place] [address] [address], [place], [address], 02/23/2022 09:20:36 02/19/20 22 02/10/2022 US, echoc ardio gram No observ ation record ed. Not Available 2021 15:40:07 02/20/20 22 02/18/2022 elect rocar diogr am No observ ation record ed. Not Available 2021 10:03:35 03/02/20 22 02/08/2022 US, carot id arter y No observ ation record ed. [email or web address] Not Available 2021 08:08:29 03/02/20 22 02/08/2022 US, carot id arter y No observ ation record ed. Not Available 2021 17:29:01 03/03/20 22 02/18/[address] ment in coron eloise arter y(s) for coron eloise angio graph y; with left heart perico teriz ation inclu ding intra proce dural injec tion( s) for left ventr iculo graph y (PROC ) No observ ation record ed. Not Available 2021 18:26:54 Result Notes Documentation Provider Name and Address Organization Details Recorded Time Cmp, Serum Or Plasma : 02/18/22:Na 138,K 4.1,CL 101,CO2 26,GLU 119,BUN 12,Cr 12. 02/18/22:WBC 10.7,RBC 4.04,Hgb 12.8,HCT 36.6,PLT 234. 02/18/22:PT 12.8,INR 1.0,aPTT 24. Alyssa kolb [place] - [facility] 07/07/2022 18:09:35 Covid-19 Counseling* : 02/17/22: Not detected Alyssa kolb DC - [facility] 07/07/2022 18:26:45 Problems Name Problem SNOMED Code Status Onset Date Resolution Date Notes Provider Name and Address Organization Details Recorded Time Aortic valve regurgitati on 48920368 Active 2021 Adan kolb [facility] 2 16:09:41 Coronary arterioscle rosis 12570962 Active 2021 Adan kolb [facility] 2 17:36:49 Pre-surgery evaluation Active 2021 Adan kolb [place] - [facility] 2 17:51:16 Anxiety 77750836 Active 2016 Maty kolb [facility] 7 16:38:50 Depressive disorder 87965003 Active 2016 Maty kolb [facility] 7 16:38:57 Diabetes mellitus 18244676 Active 2016 Maty kolb [facility] 7 16:39:04 Essential hypertensio n 42091608 Active 2016 Adan kolb [facility] 7 17:47:48 History of obesity 604411867 Active 2016 Elissa kolb [facility] 7 14:54:52 Atypical chest pain 434950655 Active 2016 Elissa kolb [facility] 7 14:55:31 Dyslipidemi a 364695381 Active 2016 Elissa Mcnair [facility] 7 14:55:41 Hypercholes terolemia 55178471 Active 2016 Elissa Mcnair [facility] 7 14:56:07 Tachycardia 9919811 Active 2016 Adan Dobbins [facility] 7 13:42:11 Pain in bilateral legs [id number] 9108 Active 2017 Adan Dobbins [facility] 8 14:26:05 Dizziness 428794529 Active 2017 Adan Dobbins [facility] 8 18:15:46 Edema of lower extremity 741496001 Active 2018 Alyssa Kearneyleni [facility] 9 12:16:31 Problem Notes None recorded. Procedures Surgical History Date Name Laterality Status Provider Name and Address Organization Details Recorded Time Hysterectomy completed [facility] 06/16/2017 16:39:23 Back Surgery completed [facility] 06/16/2017 16:39:34 Knee arthroscopy/surge ry completed [facility] 06/16/2017 16:39:53 Appendectomy completed [facility] 06/16/2017 16:40:10 Imaging Results Imaging Date Name Status LastModified by Organization Details LastModified Time 01/13/2022 electrocardiogram completed Informa tion not available 01/13/2022 17:08:44 01/26/2022 exercise stress test completed Info rmation not available 02/11/2022 09:26:53 02/10/2022 US, echocardiogram completed [facility] [place] [id number] [facility] [address], [place], [address], 02/23/2022 09:20:36 02/10/2022 US, echocardiogram completed Inform ation not available 02/18/2022 15:40:07 02/18/2022 electrocardiogram completed Informa tion not available 02/19/2022 10:03:35 02/08/2022 US, carotid artery completed Inform ation not available 03/02/2022 08:08:29 02/08/2022 US, carotid artery completed Inform ation not available 03/02/2022 17:29:01 02/18/2022 catheter placement in coronary artery(s) for coronary angiography; with left heart catheterization including intraprocedural injection(s) for left ventriculography (PROC) completed Information not available 03/03/2022 18:26:54 Procedure Notes None recorded. Medical Equipment None Reported. Allergies Allergen ID Allergen Name Allergen Category Reaction Reaction Severity Criticality Documentation Date Start Date Code Code System Note Provider Name and Address Organization Details Recorded Time 84786 lisinopri l medicatio n confusion Not available unabletoasse 01/05/2023 36757 RxNorm Adan Dobbins [facility] 3 14:28:45 5287 prochlorp erazine medicatio n Not available Not available Not available 07/03/2017 8704 RxNorm Elissa Mcnair [facility] 7 14:54:13 Medications Name Sig Start Date Stop Date Status Note LastModified by Organization Details LastModified Time atorvasta tin 40 mg tablet Take 1 tablet every day by oral route. 11/08 completed Not Available Not Available Not Available metformin 500 mg tablet Take 2 tablets twice a day by oral route. 01/13 completed Not Available Not Available Not Available atorvasta tin 80 mg tablet Take 1 tablet every day by oral route at bedtime. 03/03 completed Not Available Not Available Not Available Xanax 0.5 mg tablet Take 1 tablet 3 times a day by oral route as needed. active Not Available Not Available No t Available nystatin 100,000 unit/mL oral suspensio n SWISH AND SWALLOW 5 ML 4 TIMES A DAY BY ORAL ROUTE FOR 7 DAYS. active Not Available Not Available No t Available atorvasta tin 20 mg tablet Take 1 tablet every day by oral route at bedtime. 07/04 completed Not Available Not Available Not Available ibuprofen 800 mg tablet prn 02/08 /2023 completed Not Available Not Available Not Available metoprolo l succinate ER 50 mg tablet,ex tended release 24 hr Take 1 tablet every day by oral route. 08/08 completed per daquan take upped doseage Not Available Not Available Not Available hydrocodo ne 5 mg-acetam inophen 325 mg tablet TAKE 1 TABLET BY MOUTH TWICE A DAY FOR 30 DAYS active Not Available Not Available No t Available metoprolo l succinate ER 200 mg tablet,ex tended release 24 hr Take 1 tablet every day by oral route. 11/08 completed Not Available Not Available Not Available prednison e 20 mg tablet TAKE 1 TABLET BY MOUTH EVERY DAY FOR 5 DAYS 01/13 completed Not Available Not Available Not Available metoprolo l succinate ER 100 mg tablet,ex tended release 24 hr Take 1 tablet twice a day by oral route for 30 days. 09/07 completed Not Available Not Available Not Available prednison e 5 mg tablet TAKE 7 TABLETS BY MOUTH EVERY DAY FOR 3 DAYS, THEN DECREASE BY 1 TABLET DAILY UNTIL GONE 01/13 completed Not Available Not Available Not Available estradiol 0.1 mg/24 hr semiweekl y transderm al patch active Not Available Not Available Not Available clobetaso l 0.05 % topical cream RUB IN WELL TWICE A DAY TO INVOLVED AREAS OF BODY UNTIL CLEAR active Not Available Not Available No t Available penicilli n V potassium 500 mg tablet TAKE 1 TABLET BY MOUTH FOUR TIMES A DAY 01/13 completed Not Available Not Available Not Available methylphe nidate ER 54 mg tablet,ex tended release 24 hr TAKE 1 TABLET BY MOUTH EVERY DAY IN THE MORNING FOR 30 DAYS active Not Available Not Available No t Available Zyrtec 10 mg tablet Take 1 tablet every day by oral route as needed. active Not Available Not Available No t Available metronida zole 500 mg tablet TAKE 1 TABLET BY MOUTH TWICE A DAY FOR 7 DAYS 01/13 completed Not Available Not Available Not Available fluocinon loretta 0.05 % topical ointment APPLY TO AFFECTED AREAS ON HANDS NIGHTLY FOR 3 WEEKS. active Not Available Not Available No t Available amlodipin e 5 mg tablet Take 1 tablet every day by oral route. 11/08 completed Not Available Not Available Not Available sulfameth oxazole 800 mg-trimet hoprim 160 mg tablet TAKE 1 TABLET BY MOUTH EVERY 12 HOURS FOR UTI 01/13 completed Not Available Not Available Not Available aspirin 81 mg tablet,de layed release Take 1 tablet every day by oral route. active Not Available Not Available No t Available glimepiri de 2 mg tablet as needed active Not Available Not Available No t Available magnesium oxide 400 mg (241.3 mg magnesium ) tablet TAKE 1 TABLET DAILY 2022 active Not Available Not Available Not Avai lable OneTouch Ultra Test strips active Not Available Not Available Not Available amlodipin e 10 mg tablet Take 1 tablet every day by oral route. 01/23 completed Not Available Not Available Not Available hydrocodo ne 7.5 mg-acetam inophen 325 mg tablet active Not Available Not Available Not Available cephalexi n 500 mg capsule TAKE 1 CAPSULE BY MOUTH THREE TIMES A DAY 05/05 completed Not Available Not Available Not Available simvastat in 20 mg tablet Take 1 tablet every day by oral route. 07/04 completed PT STOPPED TAKING THIS MED SINCE LAST WEEK, DUE TO LEG PAIN;AL 07/04/17 Not Available Not Available Not Available lisinopri l 10 mg tablet TAKE 1 TABLET DAILY 01/05 completed Not Available Not Available Not Available indometha radha 50 mg capsule TAKE 1 CAPSULE (50 MG TOTAL) BY MOUTH 2 (TWO) TIMES DAILY WITH MEALS FOR 5 DAYS. active Not Available Not Available No t Available gabapenti n 300 mg capsule TAKE 1 CAPSULE BY MOUTH THREE TIMES A DAY active Not Available Not Available No t Available estradiol 2 mg tablet active Not Available Not Available Not Available monteluka st 10 mg tablet TAKE ONE TABLET BY MOUTH ONCE DAILY active Not Available Not Available No t Available mupirocin 2 % topical ointment 1 APPLIC TOPICALL Y TWICE A DAY active Not Available Not Available No t Available ergocalci ferol (vitamin D2) 1,250 mcg (50,000 unit) capsule Take 1 capsule twice a week by oral route as directed . active Not Available Not Available No t Available methylpre dnisolone 4 mg tablets in a dose pack TAKE 6 TABLETS ON DAY 1 DIRECTED ON PACKAGE AND DECREASE BY 1 TAB EACH DAY FOR A TOTAL OF 6 DAYS 05/05 completed Not Available Not Available Not Available albuterol sulfate HFA 90 mcg/actua tion aerosol inhaler INHALE 2 PUFFS EVERY 4 HOURS BY INHALATI ON ROUTE NEEDED active Not Available Not Available No t Available fluticaso ne propionat e 50 mcg/actua tion nasal spray,[facility] [place] 1 spray twice a day by intranas al route as needed. active Not Available Not Available No t Available methylphe nidate ER 36 mg tablet,ex tended release 24 hr TAKE 1 TABLET BY MOUTH EVERY DAY IN THE MORNING active Not Available Not Available No t Available amoxicill in 875 mg-potass ium clavulana te 125 mg tablet TAKE 1 TABLET BY MOUTH EVERY 12 HOURS FOR 7 DAYS 05/05 completed Not Available Not Available Not Available amoxicill in 500 mg-potass ium clavulana te 125 mg tablet TAKE 1 TABLET (500 MG OF AMOXICIL ANKUR TOTAL) BY MOUTH 2 (TWO) TIMES DAILY FOR 7 DAYS. 01/13 completed Not Available Not Available Not Available oxycodone 5 mg tablet TAKE 1 TABLET BY MOUTH TWICE A DAY FOR 30 DAYS active Not Available Not Available No t Available cyclobenz aprine 5 mg tablet TAKE 1 TABLET BY MOUTH THREE TIMES A DAY active Not Available Not Available No t Available rosuvasta tin 20 mg tablet TAKE 1 TABLET DAILY AT BEDTIME 2022 active Not Available Not Available Not Avai lable bupropion HCl XL 150 mg 24 hr tablet, extended release active Not Available Not Available Not Available duloxetin e 30 mg capsule,d elayed release TAKE 1 CAPSULE BY MOUTH EVERY DAY active Not Available Not Available No t Available fenofibra te 160 mg tablet 01/13 completed Not Available Not Available Not Available hydrochlo rothiazid e 12.5 mg tablet TAKE 1 TABLET BY MOUTH EVERY DAY 11/08 completed Not Available Not Available Not Available Symbicort 160 mcg-4.5 mcg/actua tion HFA aerosol inhaler as needed active Not Available Not Available No t Available Vyvanse 30 mg capsule TAKE 1 CAPSULE BY MOUTH EVERY DAY IN THE MORNING active Not Available Not Available No t Available Elestrin 0.87 gram/actu ation (0.06%) transderm al gel pump Apply 1 pump every day by topical route. active Not Available Not Available No t Available cholecalc iferol (vitamin D3) 1,250 mcg (50,000 unit) capsule 1 tab 3xweekly active Not Available Not Available No t Available Women's Daily Formula 1 tab po daily active Not Available Not Available No t Available blood pressure kit-extra large cuff 12/05 completed Not Available Not Available Not Available icosapent ethyl 1 gram capsule TAKE 2 CAPSULES TWICE A DAY 2022 active Not Available Not Available Not Avai lable Trulicity 1.5 mg/0.5 mL subcutane ous pen injector Inject 0.5 mL every week by subcutan eous route. active Not Available Not Available No t Available Hysingla ER 30 mg tablet, crush resistant , extended release active Not Available Not Available Not Available naloxone 4 mg/actuat ion nasal spray active Not Available Not Available Not Available Fish Oil 1,000 mg (120 mg-180 mg) capsule Take 1 capsule every day by oral route. 02/03 completed Not Available Not Available Not Available Vitals Date Recorded Body height Body mass index (BMI) Body weight Oxygen saturation Oxygen saturation in Arterial blood by Pulse oximetry Systolic blood pressure Diastolic blood pressure Provider Name and Address Organization Details Last Updated DateTime 2 170.18 cm 34.9 kg/m2 911539. 1 g 99 % 99 % 122 mm[Hg] 78 mm[Hg] Ministerio Arrieta [facility] 2 11:02:47 Date Recorded Heart rate Provider Name an d Address Organization Details Last Updated DateTime 02/03/2022 81 /min Adan Dobbins [facility] 02/03/2022 11:45:58 Date Recorded Body height Body mass index (BMI) Body weight Heart rate Oxygen saturation Oxygen saturation in Arterial blood by Pulse oximetry Systolic blood pressure Diastolic blood pressure Provider Name and Address Organization Details Last Updated DateTime 2 170.18 cm 36 kg/m2 226309. 25 g 100 /min 94 % 94 % 122 mm[Hg] 76 mm[Hg] Ministerio Arrieta [facility] 2 15:45:20 Date Recorded Body height Body mass index (BMI) Body weight Heart rate Respiratory rate Oxygen saturation Oxygen saturation in Arterial blood by Pulse oximetry Systolic blood pressure Diastolic blood pressure Provider Name and Address Organization Details Last Updated DateTime 2 170.18 cm 36.8 kg/m2 366303. 21 g 89 /min 16 /min 95 % 95 % 120 mm[Hg] 72 mm[Hg] Ministerio Arrieta [facility] 2 14:26:37 Date Recorded Body height Body mass index (BMI) Body weight Heart rate Respiratory rate Oxygen saturation Oxygen saturation in Arterial blood by Pulse oximetry Systolic blood pressure Diastolic blood pressure Provider Name and Address Organization Details Last Updated DateTime 3 170.18 cm 32 kg/m2 33865.8 4 g 74 /min 16 /min 96 % 96 % 122 mm[Hg] 82 mm[Hg] Ministerio Arrieta [facility] 3 11:48:12 Date Recorded Body height Body mass index (BMI) Body weight Heart rate Respiratory rate Oxygen saturation Oxygen saturation in Arterial blood by Pulse oximetry Systolic blood pressure Diastolic blood pressure Provider Name and Address Organization Details Last Updated DateTime 3 170.18 cm 29.6 kg/m2 62297.9 6 g 91 /min 16 /min 97 % 97 % 124 mm[Hg] 82 mm[Hg] Ministerio Arrieta [facility] 3 14:08:15 Social History Question Answer Notes LastModified by uShip ion Details LastModified Time Tobacco Smoking Status Former [facility]oker Not Available [facility] 03:30:40 What Is Your Level Of Alcohol Consumption? None [id number] Information not available 07/22/2020 What Type Of Diet Are You Following? REGULAR [id number] Information not available 07/22/2020 What Was The Date Of Your Most Recent Tobacco Screening? 11/08/2018 [id number] Information not available 07/22/2020 Sex: Unknown Functional Status None recorded. Mental Status None recorded. Family History Relationship Description Onset Age of this Age Resolved Age Notes LastModified by Organization Details LastModified Time Father Essential hypertension [email or web address] Not available 16:45:42 Father Hypercholest erolemia [email or web address] Not available 2016 16:45:55 Father Coronary arterioscler osis 79 [email or web address] Not available 2017 17:15:16 Mother Hypercholest erolemia [email or web address] Not available 2016 16:45:55 Mother Cardiac arrhythmia [email or web address] Not available 06/16 16:46:07 Mother Myocardial infarction 46 [email or web address] Not available 06/16 17:50:10 Medical History Condition Response Depression Y Diabetes Y Hyperlipidemia Y Hypertension Y Gynecological HistoryNo gynecological history recorded. Obstetrics History GPAL:G 0 P 0 0 0 0 Past Encounters Encounter ID Performer Location Encounter Start Date Encounter Closed Date Diagnosis/Indication Diagnosis SNOMED-CT Code Diagnosis ICD10 Code Diagnosis Note [id number] Adan Pacheco Office [address] [place] [address] 06/16/2017 16:32:06 06/17/2017 13:04:31 Chest pain 18448878 R07.9 Atypical. Stable. May be related to increased BP. Had echo 06/14/17: normal LV systolic function, mild LVH, EF 57%, mild AI. Had exercise nuclear test 06/14/17: below average exercise capacity, no ischemia, LVEF >70%. Diabetes mellitus 443736 09 E11.59 Discussed importance of tight glycemic control to minimize cardiovasc ular disease progressio n. Essential hypertension 73115910 I10 Newly diagnosed. Patient's blood pressure is {{well-con trolled so mewhat well-contr olled not well-contr olled*}} on present medical therapy. Patient is {{tolerati ng, without difficulty ,* having side effects with}} the current medication s. I have {{not made made the following* }} changes to the current regimen. {{ Patient is advised to maintain a blood pressure diary.*}} Patient was advised to eat a low-sodium diet (2 grams sodium or less daily). Began metoprolol succinate 50 mg qd 06/16/17. [id number] Adan Dobbins [facility] [address] [place] [address] 07/04/2017 12:07:40 07/05/2017 09:37:07 Essential hypertension [id number] I10 Newly diagnosed. Patient's blood pressure is {{well-con trolled* s omewhat well-contr olled not well-contr olled}} on present medical therapy. Patient is {{tolerati ng, without difficulty ,* having side effects with}} the current medication s. I have {{not made made the following* }} changes to the current regimen. {{ Patient is advised to maintain a blood pressure diary.*}} Patient was advised to eat a low-sodium diet (2 grams sodium or less daily). Began metoprolol succinate 50 mg qd 06/16/17 for improved BP control with elevated resting HR. Chest pain [id number] R07. 9 Atypical. Improved. May be related to increased BP. Had echo 06/14/17: normal LV systolic function, mild LVH, EF 57%, mild AI. Had exercise nuclear test 06/14/17: below average exercise capacity, no ischemia, LVEF >70%. Diabetes mellitus 181181 09 E11.59 Discussed importance of tight glycemic control to minimize cardiovasc ular disease progressio n. Hypercholesterolemia 136 30455 E78.2 Needs to keep LDL less than 70, and HDL more than 40. Began atorvastat in 20 mg qHS 07/04/17. FLP 4 wks. Tachycardia 4715048 R00. 0 Follow on metoprolol . Obtain TSH. D-dimer normal 06/14/17. [id number] Adan Reidhman [id number] [place] [address] 08/15/2017 11:58:15 08/16/2017 10:27:57 Essential hypertension [id number] I10 Newly diagnosed. Pt reports elevated BP at home. Patient's blood pressure is {{well-con trolled so mewhat well-contr olled not well-contr olled*}} on present medical therapy. Patient is {{tolerati ng, without difficulty ,* having side effects with}} the current medication s. I have {{not made made the following* }} changes to the current regimen. {{ Patient is advised to maintain a blood pressure diary.*}} Patient was advised to eat a low-sodium diet (2 grams sodium or less daily). On metoprolol succinate 100 mg qd since 08/09/17 for improved BP control with elevated resting HR. Began amlodipine 5 mg qd 08/15/17. Chest pain [id number] R07. 9 Atypical. Intermitte nt and nonexertio nal. May be related to increased BP. Had echo 06/14/17: normal LV systolic function, mild LVH, EF 57%, mild AI. Had exercise nuclear test 06/14/17: below average exercise capacity, no ischemia, LVEF >70%. Hypercholesterolemia 136 92212 E78.2 Needs to keep LDL less than 70, and HDL more than 40. Began atorvastat in 20 mg qHS 07/04/17. FLP 4 wks. later with LDL 68. Diabetes mellitus 179237 E11.59 Discussed importance of tight glycemic control to minimize cardiovasc ular disease progressio n. Tachycardia 6521944 R00. 0 Improved on metoprolol . Obtain TSH. D-dimer normal 06/14/17. [id number] Adan Dobbins [facility] [address] [place] [address] 09/07/2017 14:31:18 09/08/2017 12:52:38 Essential hypertension [id number] I10 Newly diagnosed. Patient's blood pressure is {{not well-contr olled at home# well -controlle d somewhat well-contr olled not well-contr olled}} on present medical therapy. Patient is {{tolerati ng, without difficulty ,* having side effects with}} the current medication s. I have {{not made made the following* }} changes to the current regimen. {{ Patient is advised to maintain a blood pressure diary.*}} Patient was advised to eat a low-sodium diet (2 grams sodium or less daily). On metoprolol succinate 100 mg bid since 08/08/17 for improved BP control with elevated resting HR. Changed to metoprolol succinate 200 mg qd 09/07/17.I ncreased to amlodipine 10 mg qd 09/07/17. Chest pain 15350458 R07. 9 Atypical. Improved. Intermitte nt and nonexertio nal. May be related to increased BP. Had echo 06/14/17: normal LV systolic function, mild LVH, EF 57%, mild AI. Had exercise nuclear test 06/14/17: below average exercise capacity, no ischemia, LVEF >70%. Hypercholesterolemia 136 41012 E78.2 Needs to keep LDL less than 70, and HDL more than 40. Began atorvastat in 20 mg qHS 07/04/17. FLP 4 wks. later with LDL 68. Diabetes mellitus 753124 E11.59 Discussed importance of tight glycemic control to minimize cardiovasc ular disease progressio n. Follows with endo. Tachycardia 5948717 R00. 0 Improved on metoprolol . Obtained TSH 2.42, normal, 08/19/17. D-dimer normal 06/14/17. [id number] Adan Daquan [facility] [address] [place] [address] 10/18/2017 12:51:02 10/18/2017 14:59:51 Essential hypertension 04090765 I10 Newly diagnosed. Patient's blood pressure is {{not well-contr olled at home# well -controlle d somewhat well-contr olled not well-contr olled}} on present medical therapy. Patient is {{tolerati ng, without difficulty ,* having side effects with}} the current medication s. I have {{not made made the following* }} changes to the current regimen. {{ Patient is advised to maintain a blood pressure diary.*}} Patient was advised to eat a low-sodium diet (2 grams sodium or less daily). On metoprolol succinate 100 mg bid since 08/08/17 for improved BP control with elevated resting HR. Changed to metoprolol succinate 200 mg qd 09/07/17.I ncreased to amlodipine 10 mg qd 09/07/17. Began lisinopril 10 mg qd 10/18/17. BMP/Mg in 3wks. Chest pain 24463753 R07. 9 Atypical. Improved. Intermitte nt and nonexertio nal. May be related to increased BP. Had echo 06/14/17: normal LV systolic function, mild LVH, EF 57%, mild AI. Had exercise nuclear test 06/14/17: below average exercise capacity, no ischemia, LVEF >70%. Hypercholesterolemia 136 29416 E78.2 Needs to keep LDL less than 70, and HDL more than 40. Began atorvastat in 20 mg qHS 07/04/17. FLP 4 wks. later with LDL 68. Diabetes mellitus 896692 09 E11.59 Discussed importance of tight glycemic control to minimize cardiovasc ular disease progressio n. Follows with endo. Tachycardia 1299944 R00. 0 Improved on metoprolol . Obtained TSH 2.42, normal, 08/19/17. D-dimer normal 06/14/17. Pain in bi lateral legs [id number] 7287783 M79.604 Obtain ABIs. [id number] Adan Dobbins [facility] [address] [place] [address] 12/05/2017 12:29:25 12/13/2017 09:36:55 Essential hypertension [id number] I10 Newly diagnosed. Patient's blood pressure is {{well-con trolled* s omewhat well-contr olled not well-contr olled}} on present medical therapy. Patient is {{tolerati ng, without difficulty ,* having side effects with}} the current medication s. I have {{not made* made the following} } changes to the current regimen. {{ Patient is advised to maintain a blood pressure diary.*}} Patient was advised to eat a low-sodium diet (2 grams sodium or less daily). On metoprolol succinate 100 mg bid since 08/08/17 for improved BP control with elevated resting HR. Changed to metoprolol succinate 200 mg qd 09/07/17.I ncreased to amlodipine 10 mg qd 09/07/17. Began lisinopril 10 mg qd 10/18/17. BMP/Mg in 3 wks good except Mg low at 1.4. Began MgOxide daily. Chest pain 03815033 R07. 9 Atypical. Improved. Intermitte nt and non-exerti onal. May be related to increased BP. Had echo 06/14/17: normal LV systolic function, mild LVH, EF 57%, mild AI. Had exercise nuclear test 06/14/17: below average exercise capacity, no ischemia, LVEF >70%. Hypercholesterolemia 136 46780 E78.2 Needs to keep LDL less than 70, and HDL more than 40. Began Atorvastat in 20 mg qHS 07/04/17. LDL 68 08/08/17. Diabetes mellitus 570054 09 E11.59 Discussed importance of tight glycemic control to minimize cardiovasc ular disease progressio n. Follows with endo. Tachycardia 7591858 R00. 0 Improved but intermitte nt palpitatio ns on Metoprolol . Obtained TSH 2.42, normal, 08/19/17. D-dimer normal 06/14/17. Pain in bi lateral legs [id number] 4931722 M79.604 Had Normal ankle-brac hial index done in 10/26/17. Palpitations 01313423 R0 0.2 Obtain 24 hr Holter monitor to rule out arrhythmia . Had low Mg 1.4 11/18/17.Beg an Mg Oxide 400mg qd 12/05/17. Had 08/19/17 TSH 2.420. [id number] Adan Dobbins [facility] [address] [place] [address] 01/16/2018 16:11:38 01/17/2018 13:04:24 Essential hypertension 68942251 I10 Newly diagnosed. Patient's blood pressure is {{well-con trolled* s omewhat well-contr olled not well-contr olled}} on present medical therapy. Patient is {{tolerati ng, without difficulty ,* having side effects with}} the current medication s. I have {{not made* made the following} } changes to the current regimen. {{ Patient is advised to maintain a blood pressure diary.*}} Patient was advised to eat a low-sodium diet (2 grams sodium or less daily). On metoprolol succinate 100 mg bid since 08/08/17 for improved BP control with elevated resting HR. Changed to metoprolol succinate 200 mg qd 09/07/17. Increased to amlodipine 10 mg qd 09/07/17. Began lisinopril 10 mg qd 10/18/17. BMP/Mg in 3 wks good except Mg low at 1.4. Began MgOxide daily 11/2017. Palpitations 55310819 R0 0.2 Less frequent but still symptomati c since began Mg Oxide. Obtain Cardea Monitor for 7 days to rule out arrhythmia . Had low Mg 1.4 11/18/17. Began Mg Oxide 400 mg qd 12/05/17. Had 08/19/17 TSH 2.420. Chest pain 03301365 R07. 9 Atypical. Improved. Intermitte nt and non-exerti onal. May be related to increased BP. Had echo 06/14/17: normal LV systolic function, mild LVH, EF 57%, mild AI. Had exercise nuclear test 06/14/17: below average exercise capacity, no ischemia, LVEF >70%. Hypercholesterolemia 136 41507 E78.2 Needs to keep LDL less than 70, and HDL more than 40. Began Atorvastat in 20 mg qHS 07/04/17. LDL 68 08/08/17. Diabetes mellitus 015870 09 E11.59 Discussed importance of tight glycemic control to minimize cardiovasc ular disease progressio n. Follows with endo. Tachycardia 5172122 R00. 0 Improved but intermitte nt palpitatio ns on Metoprolol . Obtained TSH 2.42, normal, 08/19/17. D-dimer normal 06/14/17. Pain in bi lateral legs [id number] 2026110 M79.604 Had Normal ankle-brac hial index done in 10/26/17. [id number] Adan Dobbins [facility] [address] [place] [address] 01/23/2018 16:55:19 01/24/2018 13:43:48 Essential hypertension 51338440 I10 Newly diagnosed. Patient's blood pressure is {{well-con trolled* s omewhat well-contr olled not well-contr olled}} on present medical therapy. Patient is {{tolerati ng, without difficulty ,* having side effects with}} the current medication s. I have {{not made* made the following} } changes to the current regimen. {{ Patient is advised to maintain a blood pressure diary.*}} Patient was advised to eat a low-sodium diet (2 grams sodium or less daily). On metoprolol succinate 100 mg bid since 08/08/17 for improved BP control with elevated resting HR. Changed to metoprolol succinate 200 mg qd 09/07/17. Increased to amlodipine 10 mg qd 09/07/17. Began lisinopril 10 mg qd 10/18/17. BMP/Mg in 3 wks good except Mg low at 1.4. Began MgOxide daily 11/2017. Was prescribed HCTZ 12.5 mg on 01/20/18. BMP/Mg in 2 weeks. Reduced amlodipine 10 mg to 5 mg 01/23/18 given lightheade dness with decreased BP. Consider repeat echo and venous reflux study if LE edema recurs. Palpitations 52210575 R0 0.2 Less frequent but still symptomati c since began Mg Oxide. Obtain Cardea Monitor for 7 days to rule out arrhythmia . Had low Mg 1.4 on 11/18/17. Began Mg Oxide 400 mg qd 12/05/17. Had 08/19/17 TSH 2.420. Chest pain 66821399 R07. 9 Atypical. Improved. Intermitte nt and non-exerti onal. May be related to increased BP. Had echo 06/14/17: normal LV systolic function, mild LVH, EF 57%, mild AI. Had exercise nuclear test 06/14/17: below average exercise capacity, no ischemia, LVEF >70%. Hypercholesterolemia 136 00783 E78.2 Needs to keep LDL less than 70, and HDL more than 40. Began Atorvastat in 20 mg qHS 07/04/17. LDL 68 on 08/08/17. Diabetes mellitus 458686 09 E11.59 Discussed importance of tight glycemic control to minimize cardiovasc ular disease progressio n. Follows with endo. Tachycardia 0541937 R00. 0 Improved but intermitte nt palpitatio ns on Metoprolol . Obtained TSH 2.42, normal, 08/19/17. D-dimer normal 06/14/17. Pain in bi lateral legs [id number] 9439377 M79.604 Had Normal ankle-brac hial index done in 10/26/17. Edema of l ower extremity 010740578 R60.0 Improved. Started on HCTZ 12.5 mg 01/20/18. Had negative Venous Doppler for DVT on 01/20/18. [id number] Adan Reidhman [facility] [address] [place] [address] 02/15/2018 16:48:28 02/15/2018 19:04:08 Essential hypertension [id number] I10 Patient's blood pressure is {{well-con trolled* s omewhat well-contr olled not well-contr olled}} on present medical therapy. Patient is {{tolerati ng, without difficulty ,* having side effects with}} the current medication s. I have {{not made* made the following} } changes to the current regimen. {{ Patient is advised to maintain a blood pressure diary.*}} Patient was advised to eat a low-sodium diet (2 grams sodium or less daily). On metoprolol succinate 100 mg bid since 08/08/17 for improved BP control with elevated resting HR. Changed to metoprolol succinate 200 mg qd 09/07/17. Increased to amlodipine 10 mg qd 09/07/17. Began lisinopril 10 mg qd 10/18/17. BMP/Mg in 3 wks good except Mg low at 1.4. Began MgOxide daily 11/2017. Was prescribed HCTZ 12.5 mg on 01/20/18. Reduced amlodipine 10 mg to 5 mg 01/23/18 given lightheade dness with decreased BP. Started on HCTZ 12.5 mg 01/20/18 with resolution of edema but with increased Cr, prompting cessation of hydrochlor othiazide Feb 15 2018. Consider repeat echo and venous reflux study if LE edema recurs. Palpitations 88750781 R0 0.2 Less frequent but still symptomati c since began Mg Oxide. Had Cardea 7 day monitor 01/23/2018 which demonstrat ed normal sinus rhythm, sinus tachycardi a with average rate of tachycardi a runs 126 beats per minute, VPCs but not correlated with symptoms and PACs but not correlated with symptoms. Patient triggered events correlated with normal sinus rhythm. Had low Mg 1.4 on 11/18/17. Began Mg Oxide 400 mg qd 12/05/17, and increased to bid 02/15/18 for Mg 1.5. Had 08/19/17 TSH 2.420. Chest pain 53146938 R07. 9 Atypical. Improved. Intermitte nt and non-exerti onal. Had echo 06/14/17: normal LV systolic function, mild LVH, EF 57%, mild AI. Had exercise nuclear test 06/14/17: below average exercise capacity, no ischemia, LVEF >70%. Hypercholesterolemia 136 25285 E78.2 Needs to keep LDL less than 70, and HDL more than 40. Began Atorvastat in 20 mg qHS 07/04/17. LDL 68 on 08/08/17. Diabetes mellitus 372773 09 E11.59 Discussed importance of tight glycemic control to minimize cardiovasc ular disease progressio n. Follows with endo. Tachycardia 3494064 R00. 0 Improved but intermitte nt palpitatio ns on Metoprolol . Obtained TSH 2.42, normal, 08/19/17. D-dimer normal 06/14/17. Pain in bi lateral legs 5125823826 0299270 M79.604 Had Normal ankle-brac hial index done in 10/26/17. Edema of l ower extremity 522539500 R60.0 Improved. Started on HCTZ 12.5 mg 01/20/18 with resolution of edema but with increased Cr, prompting cessation of hydrochlor othiazide Feb 15 2018. Had negative Venous Doppler for DVT on 01/20/18. Dizziness 276806728 R42 Obtain carotid U/S. Stopped HCTZ given increased BUN and Cr. [id number] David Hancock MD [facility] [address] [place] [address] 03/15/2018 16:30:20 03/23/2018 18:34:33 Essential hypertension 53409179 I10 Patient's blood pressure is {{well-con trolled* s omewhat well-contr olled not well-contr olled}} on present medical therapy. Patient is {{tolerati ng, without difficulty ,* having side effects with}} the current medication s. I have {{not made* made the following} } changes to the current regimen. {{ Patient is advised to maintain a blood pressure diary.*}} Patient was advised to eat a low-sodium diet (2 grams sodium or less daily). On metoprolol succinate 100 mg bid since 08/08/17 for improved BP control with elevated resting HR. Changed to metoprolol succinate 200 mg qd 09/07/17. Increased to amlodipine 10 mg qd 09/07/17. Began lisinopril 10 mg qd 10/18/17. BMP/Mg in 3 wks good except Mg low at 1.4. Began MgOxide daily 11/2017. Was prescribed HCTZ 12.5 mg on 01/20/18. Reduced amlodipine 10 mg to 5 mg 01/23/18 given lightheade dness with decreased BP. Started on HCTZ 12.5 mg 01/20/18 with resolution of edema but with increased Cr, prompting cessation of hydrochlor othiazide Feb 15 2018. Consider repeat echo and venous reflux study if LE edema recurs. Palpitations 27712924 R0 0.2 Less frequent but still symptomati c since began Mg Oxide. Had Cardea 7 day monitor 01/23/2018 which demonstrat ed normal sinus rhythm, sinus tachycardi a with average rate of tachycardi a runs 126 beats per minute, VPCs but not correlated with symptoms and PACs but not correlated with symptoms. Patient triggered events correlated with normal sinus rhythm. Had low Mg 1.4 on 11/18/17. Began Mg Oxide 400 mg qd 12/05/17, and increased to bid 02/15/18 for Mg 1.5. Had 08/19/17 TSH 2.420. Chest pain 18525216 R07. 9 Atypical. Improved. Intermitte nt and non-exerti onal. Had echo 06/14/17: normal LV systolic function, mild LVH, EF 57%, mild AI. Had exercise nuclear test 06/14/17: below average exercise capacity, no ischemia, LVEF >70%. Hypercholesterolemia 136 76010 E78.2 Needs to keep LDL less than 70, and HDL more than 40. Began Atorvastat in 20 mg qHS 07/04/17. LDL 68 on 08/08/17. Diabetes mellitus 732471 09 E11.59 Discussed importance of tight glycemic control to minimize cardiovasc ular disease progressio n. Follows with endo. Tachycardia 3812643 R00. 0 Improved but intermitte nt palpitatio ns on Metoprolol . Obtained TSH 2.42, normal, 08/19/17. D-dimer normal 06/14/17. Pain in bi lateral legs 6198078393 2386460 M79.604 Had Normal ankle-brac hial index done in 10/26/17. Edema of l ower extremity 144865968 R60.0 Improved. Started on HCTZ 12.5 mg 01/20/18 with resolution of edema but with increased Cr, prompting cessation of hydrochlor othiazide Feb 15 2018. Had negative Venous Doppler for DVT on 01/20/18. Dizziness 916568800 R42 Obtain carotid U/S. Stopped HCTZ given increased BUN and Cr. [id number] David Hancock MD [facility] [address] [place] [address] 05/29/2018 10:46:20 06/13/2018 02:43:29 Essential hypertension 20396620 I10 Patient's blood pressure is {{well-con trolled* s omewhat well-contr olled not well-contr olled}} on present medical therapy. Patient is {{tolerati ng, without difficulty ,* having side effects with}} the current medication s. I have {{not made* made the following} } changes to the current regimen. {{ Patient is advised to maintain a blood pressure diary.*}} Patient was advised to eat a low-sodium diet (2 grams sodium or less daily). On metoprolol succinate 100 mg bid since 08/08/17 for improved BP control with elevated resting HR. Changed to metoprolol succinate 200 mg qd 09/07/17. Increased to amlodipine 10 mg qd 09/07/17. Began lisinopril 10 mg qd 10/18/17. BMP/Mg in 3 wks good except Mg low at 1.4. Began MgOxide daily 11/2017. Was prescribed HCTZ 12.5 mg on 01/20/18. Reduced amlodipine 10 mg to 5 mg 01/23/18 given lightheade dness with decreased BP. Started on HCTZ 12.5 mg 01/20/18 with resolution of edema but with increased Cr, prompting cessation of hydrochlor othiazide Feb 15 2018. Consider repeat echo and venous reflux study if LE edema recurs. Palpitations 56217276 R0 0.2 More frequent the last 1 week, less frequent the past 2 days. She is still symptomati c since began Mg Oxide. Had Cardea 7 day monitor 01/23/2018 which demonstrat ed normal sinus rhythm, sinus tachycardi a with average rate of tachycardi a runs 126 beats per minute, VPCs but not correlated with symptoms and PACs but not correlated with symptoms. Patient triggered events correlated with normal sinus rhythm. Had low Mg 1.4 on 11/18/17. Began Mg Oxide 400 mg qd 12/05/17, and increased to bid 02/15/18 for Mg 1.5. Had 05/25/18 TSH 2.330 Chest pain 29730684 R07. 9 Atypical. Improved. Intermitte nt and non-exerti onal. Had echo 06/14/17: normal LV systolic function, mild LVH, EF 57%, mild AI. Had exercise nuclear test 06/14/17: below average exercise capacity, no ischemia, LVEF >70%. Hypercholesterolemia 136 96477 E78.2 Needs to keep LDL less than 70, and HDL more than 40. Began Atorvastat in 20 mg qHS 07/04/17. Increased Atorvastat in to 40 mg once daily 05/29/18. LDL was 131 on 05/25/18 Will start Fish Oil 1000 mg twice daily for TG 258. Diabetes mellitus 743267 09 E11.59 Discussed importance of tight glycemic control to minimize cardiovasc ular disease progressio n. Follows with endo. Tachycardia 0996230 R00. 0 Improved but intermitte nt palpitatio ns on Metoprolol 200 mg qd. Had 05/25/18 TSH 2.330. Pain in bi lateral legs 3147239107 1302109 M79.604 Had Normal ankle-brac hial index done in 10/26/17. Edema of l ower extremity 525834789 R60.0 Improved. Started on HCTZ 12.5 mg 01/20/18 with resolution of edema but with increased Cr, prompting cessation of hydrochlor othiazide Feb 15 2018. Had negative Venous Doppler for DVT on 01/20/18. Dizziness 275607236 R42 Intermitte nt. Had Carotid US on 02/22/18 showing mild bilateral internal carotid artery stenosis with less than 60% diameter stenosis. Stopped HCTZ given increased BUN and Cr. Anxiety 18238212 F41.9 History of anxiety and currently going through major life changes. Symptoms of palpitatio ns and shortness of breath sounds more like anxiety. She recently had stress test, echo, event monitor for 7 days, CHELSEA, carotid US and none of the tests have explained why she is having these episodes. Told patient to continue monitoring symptoms. She takes Metoprolol Succinate 200 mg once daily. Make sure she takes medication s as prescribed without missing any doses. She will follow up in 6 weeks and have labs drawn for her cholestero l before returning. She was informed if episodes become worse or constant she needs to be seen sooner. She understand s and agrees with the plan. All questions answered. [id number] David Hancock MD [facility] [address] [place] [address] 07/04/2018 15:00:24 07/04/2018 15:33:37 Essential hypertension 70330207 I10 Well controlled today. Is not taking her medication s as prescribed . She stopped taking her medication s 1 week ago, Amlodipine 5 mg, Lisinopril 10 mg, Metoprolol 200 mg qd and Magnesium Oxide. Palpitations 15139250 R0 0.2 less frequent. Had Cardea 7 day monitor 01/23/2018 which demonstrat ed normal sinus rhythm, sinus tachycardi a with average rate of tachycardi a runs 126 beats per minute, VPCs but not correlated with symptoms and PACs but not correlated with symptoms. Patient triggered events correlated with normal sinus rhythm. Had low Mg 1.4 on 11/18/17. Began Mg Oxide 400 mg qd 12/05/17, and increased to bid 02/15/18 for Mg 1.5. Had 05/25/18 TSH 2.330 07/06 stopped MagOxide Chest pain 29404900 R07. 9 Atypical. Improved. Intermitte nt and non-exerti onal. Had echo 06/14/17: normal LV systolic function, mild LVH, EF 57%, mild AI. Had exercise nuclear test 06/14/17: below average exercise capacity, no ischemia, LVEF >70%. Tachycardia 9346522 R00. 0 Improved but intermitte nt palpitatio ns on Metoprolol 200 mg qd. Had 05/25/18 TSH 2.330. Hypercholesterolemia 136 71746 E78.2 Needs to keep LDL less than 70, and HDL more than 40. Began Atorvastat in 20 mg qHS 07/04/17. Increased Atorvastat in to 40 mg once daily 05/29/18. LDL was 131 on 05/25/18 Will start Fish Oil 1000 mg twice daily for TG 258. Will repeat FLP before next visit. Diabetes mellitus 795573 09 E11.59 Discussed importance of tight glycemic control to minimize cardiovasc ular disease progressio n. Follows with endo. Pain in bi lateral legs [id number] 8279785 M79.604 Had Normal ankle-brac hial index done in 10/26/17. Edema of l ower extremity 123067243 R60.0 Improved. Started on HCTZ 12.5 mg 01/20/18 with resolution of edema but with increased Cr, prompting cessation of hydrochlor othiazide Feb 15 2018. Had negative Venous Doppler for DVT on 01/20/18. Dizziness 585844771 R42 Intermitte nt. Had Carotid US on 02/22/18 showing mild bilateral internal carotid artery stenosis with less than 60% diameter stenosis. Stopped HCTZ given increased BUN and Cr. Anxiety 65127712 F41.9 History of anxiety and currently going through major life changes. Symptoms of palpitatio ns and shortness of breath sounds more like anxiety. She recently had stress test, echo, event monitor for 7 days, CHELSEA, carotid US and none of the tests have explained why she is having these episodes. Told patient to continue monitoring symptoms. She takes Metoprolol Succinate 200 mg once daily. Make sure she takes medication s as prescribed without missing any doses. She will follow up in 6 weeks and have labs drawn for her cholestero l before returning. She was informed if episodes become worse or constant she needs to be seen sooner. She understand s and agrees with the plan. All questions answered. [id number] [address] [facility] [address] [place] [address] 11/08/2018 15:21:24 11/08/2018 17:38:34 Essential hypertension [id number] I10 Well-contr olled today despite stopping all of her anti-hyper tensives on her own since 06/2018. She lost 23 lbs. since January 2018 and is more active. Is not taking her medication s as prescribed . She stopped taking her medication s 11/08/18: Amlodipine 5 mg, Lisinopril 10 mg, Metoprolol 200 mg qd and Magnesium Oxide. BP diary. Palpitations [id number] R0 0.2 Less frequent. Had zumatek 7 day monitor 01/23/2018 which demonstrat ed normal sinus rhythm, sinus tachycardi a with average rate of tachycardi a runs 126 beats per minute, VPCs but not correlated with symptoms and PACs but not correlated with symptoms. Patient triggered events correlated with normal sinus rhythm. Had low Mg 1.4 on 11/18/17. Began Mg Oxide 400 mg qd 12/05/17, and increased to bid 02/15/18 for Mg 1.5. Had 05/25/18 TSH 2.330 Chest pain [id number] R07. 9 Atypical. Improved. Intermitte nt and non-exerti onal. Had echo 06/14/17: normal LV systolic function, mild LVH, EF 57%, mild AI. Had exercise nuclear test 06/14/17: below average exercise capacity, no ischemia, LVEF >70%. Tachycardia 0240322 R00. 0 Improved but intermitte nt palpitatio ns on Metoprolol 200 mg qd, which she self-disco ntinued. Had 05/25/18 TSH 2.330. Hypercholesterolemia 136 70774 E78.2 Needs to keep LDL less than 70, and HDL more than 40. Began Atorvastat in 20 mg qHS 07/04/17. Increased Atorvastat in to 40 mg once daily 05/29/18. LDL was 131 on 05/25/18 She stopped atorvastat in on her own 06/2018. Obtain FLP. Diabetes mellitus 898746 09 E11.59 Discussed importance of tight glycemic control to minimize cardiovasc ular disease progressio n. Follows with endo. Pain in bi lateral legs [id number] 1340836 M79.604 Had Normal ankle-brac hial index done in 10/26/17. Edema of l ower extremity 378002394 R60.0 Improved. Started on HCTZ 12.5 mg 01/20/18 with resolution of edema but with increased Cr, prompting cessation of hydrochlor othiazide Feb 15 2018. Had poor liquid intake at that time. Had negative Venous Doppler for DVT on 01/20/18. Dizziness [id number] R42 Intermitte nt. Improved. Had Carotid US on 02/22/18 showing mild bilateral internal carotid artery stenosis with less than 60% diameter stenosis. Needs repeat carotid U/S 02/2019. Stopped HCTZ given increased BUN and Cr. Anxiety 32732509 F41.9 Improved. History of anxiety and currently going through major life changes. [id number] [address] [facility] [address] [place] [address] 01/13/2022 14:02:40 01/13/2022 16:32:52 Essential hypertension [id number] I10 Well-contr olled today despite stopping all of her anti-hyper tensives on her own since 06/2018. She lost 23 lbs. since January 2018 and is more active. Is not taking her medication s as prescribed . She stopped taking her medication s 11/08/18: Amlodipine 5 mg, Lisinopril 10 mg, Metoprolol 200 mg qd and Magnesium Oxide. BP diary. Palpitations 06231963 R0 0.2 Less frequent. Had zumatek 7 day monitor 01/23/2018 which demonstrat ed normal sinus rhythm, sinus tachycardi a with average rate of tachycardi a runs 126 beats per minute, VPCs but not correlated with symptoms and PACs but not correlated with symptoms. Patient triggered events correlated with normal sinus rhythm. Had low Mg 1.4 on 11/18/17. Began Mg Oxide 400 mg qd 12/05/17, and increased to bid 02/15/18 for Mg 1.5. Had 05/25/18 TSH 2.330 Chest pain 24450940 R07. 9 Patient presents with {{chest* a rm back ja w}} pain {{typical of angina wit h atypical features*} } and exertional dyspnea which can be an anginal equivalent . Given the history, exam findings and {{high int ermediate* low}} cardiac risk factors, I {{feel* do not feel}} additional investigat ion is warranted. I have made arrangemen ts in the near future for {{an exercise stress echocardio gram to evaluate for any ischemia, structural heart disease, or exercise induced arrythmia an exercise stress nuclear test an exercise stress nuclear test (stress echo not possible due to COPD or obesity) a n exercise stress nuclear test and an echocardio gram to evaluate for any ischemia or structural heart disease* a pharmacolo gic stress nuclear test due to reduced functional capacity or conduction abnormalit y cardiac catheteriz ation an echocardio gram to evaluate left ventricula r function and any structural heart disease or valvular abnormalit y}}. The procedure was discussed with the patient, and risks, benefits, and alternativ e options were explained. {{ The patient was informed about heart catheteriz ation and interventi onal procedures and agrees to proceed.}} Appropriat e labwork {{has has not*}} been performed recently, therefore I {{have not have*} } made arrangemen ts for further testing: FLP, TSH, CBC, CMP, Mg. I have asked the patient to curtail exercise and activities until our investigat ion is complete. I have {{made no made the following* }} adjustment s to the present medical regimen. {{ Patient has been started on daily aspirin.}} {{ Patient has been given a prescripti on for sublingual nitroglyce rin.}} Had echo 06/14/17: normal LV systolic function, mild LVH, EF 57%, mild AI. Had exercise nuclear test 06/14/17: below average exercise capacity, no ischemia, LVEF >70%. If stress test normal, consider stopping ASA. Tachycardia 8627228 R00. 0 Improved but intermitte nt palpitatio ns on Metoprolol 200 mg qd, which she self-disco ntinued. Had 05/25/18 TSH 2.330. Hypercholesterolemia 136 76423 E78.2 Needs to keep LDL less than 70, and HDL more than 40. Began Atorvastat in 20 mg qHS 07/04/17. Increased Atorvastat in to 40 mg once daily 05/29/18. LDL was 131 on 05/25/18 She stopped atorvastat in on her own 06/2018. Obtain FLP. Diabetes mellitus 348318 09 E11.59 Discussed importance of tight glycemic control to minimize cardiovasc ular disease progressio n. Follows with endo. Pain in bi lateral legs [id number] 4074412 M79.604 Had Normal ankle-brac hial index done in 10/26/17. Edema of l ower extremity 330967511 R60.0 Intermitte nt. Started on HCTZ 12.5 mg 01/20/18 with resolution of edema but with increased Cr, prompting cessation of hydrochlor othiazide Feb 15 2018. Had poor liquid intake at that time. Had negative Venous Doppler for DVT on 01/20/18. Elevate legs.Compr ession stockings. Low Na diet. Consider HCTZ pending labs. Dizziness 980287646 R42 Intermitte nt. Improved. Had Carotid US on 02/22/18 showing mild bilateral internal carotid artery stenosis with less than 60% diameter stenosis. Needs repeat carotid U/S. Anxiety 75232343 F41.9 Improved. History of anxiety and currently going through major life changes. Aortic edita ve regurgitation 28779426 I35.1 Mild. Had 06/14/17 ECHO: Normal left ventricula r systolic function , no local well motion abnormalit ies, normal left ventricula r size , mild concentric left ventricula r hypertroph y, normal left ventricula r diastolic function, EF 57%, Mild aortic valve regurgitat ion. Obtain echo to evaluate for structural /functiona l disease. [id number] [address] [facility] [address] [place] [address] 02/03/2022 10:46:00 02/03/2022 11:59:11 Aortic valve regurgitation 04993296 I35.1 Mild. Had 06/14/17 ECHO: Normal left ventricula r systolic function , no local well motion abnormalit ies, normal left ventricula r size , mild concentric left ventricula r hypertroph y, normal left ventricula r diastolic function, EF 57%, Mild aortic valve regurgitat ion. Obtain echo to evaluate for structural /functiona l disease. Essential hypertension 41163386 I10 Well-contr olled today despite stopping all of her anti-hyper tensives on her own since 06/2018. She lost 23 lbs. since January 2018 and is more active. Is not taking her medication s as prescribed . She stopped taking her medication s 11/08/18: Amlodipine 5 mg, Lisinopril 10 mg, Metoprolol 200 mg qd and Magnesium Oxide. BP diary. Dizziness 807685653 R42 Intermitte nt. Improved. Had Carotid US on 02/22/18 showing mild bilateral internal carotid artery stenosis with less than 60% diameter stenosis. Needs repeat carotid U/S. Pain in bi lateral legs [id number] 0119292 M79.604 Had Normal ankle-brac hial index done in 10/26/17. Tachycardia 7026496 R00. 0 Improved but intermitte nt palpitatio ns on Metoprolol 200 mg qd, which she self-disco ntinued. Had 05/25/18 TSH 2.330. Anxiety 07615471 F41.9 Improved. History of anxiety and currently going through major life changes. Diabetes mellitus 923512 09 E11.59 Discussed importance of tight glycemic control to minimize cardiovasc ular disease progressio n. Follows with endo. Edema of l ower extremity 202389081 R60.0 Intermitte nt. Minimal. Started on HCTZ 12.5 mg 01/20/18 with resolution of edema but with increased Cr, prompting cessation of hydrochlor othiazide Feb 15 2018. Had poor liquid intake at that time. Had negative Venous Doppler for DVT on 01/20/18. Elevate legs.Compr ession stockings. Low Na diet. Consider HCTZ if edema increases. History of obesity 31473 3001 Z91.89 20 lb. weight loss recommende d over the next 2 months. Hypercholesterolemia 136 45587 E78.2 Needs to keep LDL less than 70, and HDL more than 40. Began Atorvastat in 20 mg qHS 07/04/17. Increased Atorvastat in to 40 mg once daily 05/29/18. LDL was 131 on 05/25/18 She stopped atorvastat in on her own 06/2018. Obtained 01/20/22: LIPID-TRIG 438 CHOL 265 LDL 137 HDL 39 Reduce shrimp. Resumed atorvastat in at 80 mg HS 02/03/22. Began icosapent ethyl 2 gm bid 02/03/22. Atypical chest pain 1025 71524 R07.89 Patient presents with chest pain with atypical features and exertional dyspnea which can be an anginal equivalent . Given the history, exam findings and intermedia te cardiac risk factors, I feel additional investigat ion is warranted. I have made arrangemen ts in the near future for an echocardio gram to evaluate for any ischemia or structural heart disease. The procedure was discussed with the patient, and risks, benefits, and alternativ e options were explained. Had exercise nuclear stress test 01/26/22: positive for ischemia, with reversible defect consistent with ischemia in laura-api daina area (new compared with 06/14/17). The patient will be scheduled for left heart catheteriz ation, with coronary angiogram, and possible PTCA/Stent . The procedure was discussed with the patient, and risks, benefits, and alternativ e options were explained. The patient was given informatio n about heart catheteriz ation and interventi onal procedures . The patient agrees to proceed at [facility]. Had echo 06/14/17: normal LV systolic function, mild LVH, EF 57%, mild AI. Had exercise nuclear test 06/14/17: below average exercise capacity, no ischemia, LVEF >70%. Had 01/20/22 CMP-NA 138 K 4.0 CR 1.08 GL 106 CA 8.7 MAG 1.7 LIPID-TRIG 438 CHOL 265 LDL 137 HDL 39 CBC-WBC 8.9 RBC 4.32 HGB 13.8 HCT 39.3 PLT 234 Palpitations 80013910 R0 0.2 Less frequent. Had Cardea 7 day monitor 01/23/2018 which demonstrat ed normal sinus rhythm, sinus tachycardi a with average rate of tachycardi a runs 126 beats per minute, VPCs but not correlated with symptoms and PACs but not correlated with symptoms. Patient triggered events correlated with normal sinus rhythm. Had low Mg 1.4 on 11/18/17. Began Mg Oxide 400 mg qd 12/05/17. Had 05/25/18 TSH 2.330 [id number] [address] [facility] [address] [place] [address] 03/03/2022 15:38:56 03/03/2022 18:05:44 Aortic valve regurgitation [id number] I35.1 Mild previously . Had US, echocardio gram ( 2): LV chamber size is normal. Mild LVH. There is normal global systolic function and contractil ity. The estimated left ventricle ejection fraction is 55-60% (normal). No AI. Had 06/14/17 ECHO: Normal left ventricula r systolic function , no local well motion abnormalit ies, normal left ventricula r size , mild concentric left ventricula r hypertroph y, normal left ventricula r diastolic function, EF 57%, Mild aortic valve regurgitat ion. Essential hypertension 84607606 I10 Well-contr olled today despite stopping all of her anti-hyper tensives on her own since 06/2018. She lost 23 lbs. since January 2018 and is more active. Is not taking her medication s as prescribed . She stopped taking her medication s 11/08/18: Amlodipine 5 mg, Lisinopril 10 mg, Metoprolol 200 mg qd and Magnesium Oxide. BP diary. Dizziness 912203659 R42 Intermitte nt. Improved. Had US, carotid artery ( 2) Antegrade flow noted in both vertebral arteries. Mild bilateral internal carotid artery stenosis with less than 50% diameter stenosis. Had Carotid US on 02/22/18 showing mild bilateral internal carotid artery stenosis with less than 60% diameter stenosis. Needs repeat carotid U/S 02/2023. Pain in bi lateral legs [id number] 2568761 M79.604 Had Normal ankle-brac hial index done in 10/26/17. Tachycardia 7067188 R00. 0 Improved but intermitte nt palpitatio ns on Metoprolol 200 mg qd, which she self-disco ntinued. Had 05/25/18 TSH 2.330. Anxiety 94758914 F41.9 Improved. History of anxiety and currently going through major life changes. Diabetes mellitus 634183 09 E11.59 Discussed importance of tight glycemic control to minimize cardiovasc ular disease progressio n. Follows with endo. Edema of l ower extremity 029786410 R60.0 Intermitte nt. Minimal. Started on HCTZ 12.5 mg 01/20/18 with resolution of edema but with increased Cr, prompting cessation of hydrochlor othiazide Feb 15 2018. Had poor liquid intake at that time. Had negative Venous Doppler for DVT on 01/20/18. Elevate legs.Compr ession stockings. Low Na diet. Consider HCTZ if edema increases. History of obesity 88879 3001 Z91.89 20 lb. weight loss recommende d over the next 2 months. Hypercholesterolemia 136 07104 E78.2 Needs to keep LDL less than 70, and HDL more than 40. Began Atorvastat in 20 mg qHS 07/04/17. Increased Atorvastat in to 40 mg once daily 05/29/18. LDL was 131 on 05/25/18 She stopped atorvastat in on her own 06/2018. Obtained 01/20/22: LIPID-TRIG 438 CHOL 265 LDL 137 HDL 39 Reduce shrimp. Resumed atorvastat in at 80 mg HS 02/03/22. Reports legs cramps and dizziness on atorvastat in, so she stopped atorvastat in 02/28/22. Began icosapent ethyl 2 gm bid 02/03/22. Began rosuvastat in 20 mg HS 03/03/22. Obtain CPK, CMP, Mg, FLP 1 mo. Atypical chest pain 1025 50787 R07.89 Patient presents with chest pain with atypical features and exertional dyspnea which can be an anginal equivalent , improved. Had exercise nuclear stress test 01/26/22: positive for ischemia, with reversible defect consistent with ischemia in laura-api daina area (new compared with 06/14/17).H ad C 02/18/22: mild to moderate CAD (40% stenosis mid LCx, LAD and RCA no significan t disease, RCA non-domina nt), normal LV systolic function, normal LVEDP. Had US, echocardio gram ( 2): LV chamber size is normal. Mild LVH. There is normal global systolic function and contractil ity. The estimated left ventricle ejection fraction is 55-60% (normal). No AI. Had 06/14/17 ECHO: No Had echo 06/14/17: normal LV systolic function, mild LVH, EF 57%, mild AI. Had exercise nuclear test 06/14/17: below average exercise capacity, no ischemia, LVEF >70%. Had 01/20/22 CMP-NA 138 K 4.0 CR 1.08 GL 106 CA 8.7 MAG 1.7 LIPID-TRIG 438 CHOL 265 LDL 137 HDL 39 CBC-WBC 8.9 RBC 4.32 HGB 13.8 HCT 39.3 PLT 234 Palpitations 85375803 R0 0.2 Less frequent. Had Cardea 7 day monitor 01/23/2018 which demonstrat ed normal sinus rhythm, sinus tachycardi a with average rate of tachycardi a runs 126 beats per minute, VPCs but not correlated with symptoms and PACs but not correlated with symptoms. Patient triggered events correlated with normal sinus rhythm. Had low Mg 1.4 on 11/18/17. Began Mg Oxide 400 mg qd 12/05/17. Had 05/25/18 TSH 2.330 Coronary arteriosclerosis 05469985 I25.10 Mild-moder ate CAD. Had LHC 02/18/22: mild to moderate CAD (40% stenosis mid LCx, LAD and RCA no significan t disease, RCA non-domina nt), normal LV systolic function, normal LVEDP. Continue ASA. Needs to keep LDL less than 70, and HDL more than 40. Pre-surger y evaluation 965212890 Z01.818 There is no cardiac contraindi cation for the procedure. The planned procedure would be within acceptable risk. {{ Patient may stop taking aspirin and Plavix five (5) days prior to the procedure. Patient may stop taking aspirin five (5) days prior to the procedure. #}} [id number] [facility] [address] [place] [address] 05/05/2022 14:17:27 05/05/2022 15:27:04 Aortic valve regurgitation 91030676 I35.1 Mild previously . Had US, echocardio gram ( 2): LV chamber size is normal. Mild LVH. There is normal global systolic function and contractil ity. The estimated left ventricle ejection fraction is 55-60% (normal). No AI. Had 06/14/17 ECHO: Normal left ventricula r systolic function , no local well motion abnormalit ies, normal left ventricula r size , mild concentric left ventricula r hypertroph y, normal left ventricula r diastolic function, EF 57%, Mild aortic valve regurgitat ion. Essential hypertension 36711444 I10 Well-contr olled with diet today despite stopping all of her anti-hyper tensives on her own since 06/2018. She lost 23 lbs. since January 2018 and is more active. Is not taking her medication s as prescribed . She stopped taking her medication s 11/08/18: Amlodipine 5 mg, Lisinopril 10 mg, Metoprolol 200 mg qd and Magnesium Oxide. BP diary. Obtain BMP, Mg. Dizziness 830031240 R42 Intermitte nt. Postural. Had US, carotid artery ( 2) Antegrade flow noted in both vertebral arteries. Mild bilateral internal carotid artery stenosis with less than 50% diameter stenosis. Had Carotid US on 02/22/18 showing mild bilateral internal carotid artery stenosis with less than 60% diameter stenosis. Needs repeat carotid U/S 02/2023. Pain in bi lateral legs 8130148578 5635783 M79.604 Had Normal ankle-brac hial index done in 10/26/17. Tachycardia 0173666 R00. 0 Improved but intermitte nt palpitatio ns on Metoprolol 200 mg qd, which she self-disco ntinued. Had 05/25/18 TSH 2.330. Anxiety 12626643 F41.9 Improved. History of anxiety and currently going through major life changes. Diabetes mellitus 236852 09 E11.59 Discussed importance of tight glycemic control to minimize cardiovasc ular disease progressio n. Follows with endo. Edema of l ower extremity 658409463 R60.0 Intermitte nt. Minimal. Started on HCTZ 12.5 mg 01/20/18 with resolution of edema but with increased Cr, prompting cessation of hydrochlor othiazide Feb 15 2018. Had poor liquid intake at that time. Had negative Venous Doppler for DVT on 01/20/18. Elevate legs.Compr ession stockings. Low Na diet. Consider HCTZ if edema increases. History of obesity 90498 3001 Z91.89 20 lb. weight loss recommende d over the next 2 months. Hypercholesterolemia 136 90507 E78.2 Needs to keep LDL less than 70, and HDL more than 40. Began Atorvastat in 20 mg qHS 07/04/17. Increased Atorvastat in to 40 mg once daily 05/29/18. LDL was 131 on 05/25/18 She stopped atorvastat in on her own 06/2018. Obtained 01/20/22: LIPID-TRIG 438 CHOL 265 LDL 137 HDL 39 Reduce shrimp. Resumed atorvastat in at 80 mg HS 02/03/22. Reports legs cramps and dizziness on atorvastat in, so she stopped atorvastat in 02/28/22. Began Vascepa 2 gm bid 02/03/22. Began rosuvastat in 20 mg HS 03/03/22. Had ( 2): LIPID-TRIG 161 CHOL 132 LDL 55 HDL 45 CPK 72 normal. Atypical chest pain 1025 88521 R07.89 Patient presents with chest pain with atypical features and exertional dyspnea which can be an anginal equivalent , improved. Had exercise nuclear stress test 01/26/22: positive for ischemia, with reversible defect consistent with ischemia in laura-api daina area (new compared with 06/14/17).H ad C 02/18/22: mild to moderate CAD (40% stenosis mid LCx, LAD and RCA no significan t disease, RCA non-domina nt), normal LV systolic function, normal LVEDP. Had US, echocardio gram ( 2): LV chamber size is normal. Mild LVH. There is normal global systolic function and contractil ity. The estimated left ventricle ejection fraction is 55-60% (normal). No AI. Had 06/14/17 ECHO: No Had echo 06/14/17: normal LV systolic function, mild LVH, EF 57%, mild AI. Had exercise nuclear test 06/14/17: below average exercise capacity, no ischemia, LVEF >70%. Had 01/20/22 CMP-NA 138 K 4.0 CR 1.08 GL 106 CA 8.7 MAG 1.7 LIPID-TRIG 438 CHOL 265 LDL 137 HDL 39 CBC-WBC 8.9 RBC 4.32 HGB 13.8 HCT 39.3 PLT 234 Coronary arteriosclerosis 20039514 I25.10 Mild-moder ate CAD. Had [facility] 02/18/22: mild to moderate CAD (40% stenosis mid LCx, LAD and RCA no significan t disease, RCA non-domina nt), normal LV systolic function, normal LVEDP. Continue ASA. Needs to keep LDL less than 70, and HDL more than 40. Palpitations 88187989 R0 0.2 Resolved. Had Cardea 7 day monitor 01/23/2018 which demonstrat ed normal sinus rhythm, sinus tachycardi a with average rate of tachycardi a runs 126 beats per minute, VPCs but not correlated with symptoms and PACs but not correlated with symptoms. Patient triggered events correlated with normal sinus rhythm. Had low Mg 1.4 on 11/18/17. Began Mg Oxide 400 mg qd 12/05/17. Had 05/25/18 TSH 2.330 Had ( 2)CMP-NA 141 K 4.0 CR 1.13 GL 152 CA 9.0 MAG 1.6 CK 72 [id number] [address] [address] [facility] [address] [place] [address] 10/27/2022 11:20:27 10/27/2022 12:56:22 Aortic valve regurgitation 87642748 I35.1 Mild previously . Had US, echocardio gram ( 2): LV chamber size is normal. Mild LVH. There is normal global systolic function and contractil ity. The estimated left ventricle ejection fraction is 55-60% (normal). No AI. Had 06/14/17 ECHO: Normal left ventricula r systolic function , no local well motion abnormalit ies, normal left ventricula r size , mild concentric left ventricula r hypertroph y, normal left ventricula r diastolic function, EF 57%, Mild aortic valve regurgitat ion. Essential hypertension 04110657 I10 Well-contr olled with diet today despite stopping all of her anti-hyper tensives on her own since 06/2018. She lost 23 lbs. since January 2018 and is more active. Is not taking her medication s as prescribed . She stopped taking her medication s 11/08/18: Amlodipine 5 mg, Lisinopril 10 mg, Metoprolol 200 mg qd and Magnesium Oxide. BP diary. Obtain BMP, Mg, drawn at [facility]. 10/25/22. Dizziness 860143168 R42 Intermitte nt. Postural. Had US, carotid artery ( 2) Antegrade flow noted in both vertebral arteries. Mild bilateral internal carotid artery stenosis with less than 50% diameter stenosis. Had Carotid US on 02/22/18 showing mild bilateral internal carotid artery stenosis with less than 60% diameter stenosis. Needs repeat carotid U/S 01/2023. Pain in bi lateral legs [id number] 3149144 M79.604 Had Normal ankle-brac hial index done in 10/26/17. Tachycardia 6779178 R00. 0 Improved but intermitte nt palpitatio ns on Metoprolol 200 mg qd, which she self-disco ntinued. Had 05/25/18 TSH 2.330. Anxiety 08231125 F41.9 Improved. History of anxiety and currently going through major life changes. Diabetes mellitus 016560 09 E11.59 Discussed importance of tight glycemic control to minimize cardiovasc ular disease progressio n. Follows with endo. Edema of l ower extremity 287804132 R60.0 Intermitte nt. Minimal. Started on HCTZ 12.5 mg 01/20/18 with resolution of edema but with increased Cr, prompting cessation of hydrochlor othiazide Feb 15 2018. Had poor liquid intake at that time. Had negative Venous Doppler for DVT on 01/20/18. Elevate legs.Compr ession stockings. Low Na diet. Consider HCTZ if edema increases. Obtain labs 10/25/21 [facility]. History of obesity 89076 3001 Z91.89 20 lb. weight loss recommende d over the next 2 months. Hypercholesterolemia 136 [id number] E78.2 Needs to keep LDL less than 70, and HDL more than 40. Began Atorvastat in 20 mg qHS 07/04/17. Increased Atorvastat in to 40 mg once daily 05/29/18. LDL was 131 on 05/25/18 She stopped atorvastat in on her own 06/2018. Obtained 01/20/22: LIPID-TRIG 438 CHOL 265 LDL 137 HDL 39 Reduce shrimp. Resumed atorvastat in at 80 mg HS 02/03/22. Reports legs cramps and dizziness on atorvastat in, so she stopped atorvastat in 02/28/22. Began Vascepa 2 gm bid 02/03/22. Began rosuvastat in 20 mg HS 03/03/22. Had ( 2): LIPID-TRIG 161 CHOL 132 LDL 55 HDL 45 CPK 72 normal. Atypical chest pain 1025 33561 R07.89 Patient presents with chest pain with atypical features and exertional dyspnea which can be an anginal equivalent , improved. Had exercise nuclear stress test 01/26/22: positive for ischemia, with reversible defect consistent with ischemia in laura-api daina area (new compared with 06/14/17).H ad [facility] 02/18/22: mild to moderate CAD (40% stenosis mid LCx, LAD and RCA no significan t disease, RCA non-domina nt), normal LV systolic function, normal LVEDP. Had US, echocardio gram ( 2): LV chamber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 OBGyn Episode No OBEpisode recorded.
--- OUTSIDE RECORDS SUMMARY | 2024-10-17 16:44 | XMS_ITS | Clinical Summary ---
Author Organization [facility] [address] Address [address] [place] [address] Care Team Providers Care Patient Registration Clerk Name Role Phone Roland Rojas DO Primary Care Provider Allergies Active Allergy Reactions [...] Pain in joint involving ankle and foot 4 Chronic pain syndrome 06/22/2023 Postlaminectomy syndrome 05/17/2023 Cervical radiculopathy 05/17/2023 Radiculopathy, lumbosacral region 05/17/2023 Coronary artery disease invo lving [place] coronary artery of [place] heart without angina pectoris 04/19/2023 Essential hypertension [...] (01/24/2024): Added automatically from request for surgery [id number] Nonspecific abnormal results of function study o [...] diabetes mellitus without complication (C MS/HCC) 11/26/2016 Encounters Date Type Department Care Team Description 08/23/2024 2:00 PM BRUSH MAKER Office Visit [facility] Cardiology at [address] [place] [address] Rhett Ramírez MD Nonrheumatic aortic valve insufficiency (Primary Dx); Bilateral carotid artery stenosis; Coronary artery disease involving [place] coronary artery of [place] heart without angina pectoris; Hypertension associated with diabetes (HCC); Hyperlipidemia associated with type 2 diabetes mellitus (HCC) from Last 3 Months Surgical History Surgery Date Site/Laterality Comments HYSTERECTOMY APPENDECTOMY CHOLECYSTECTOMY TUBAL LIGATION Medical History Medical History Date Comments Allergic rhinitis Anxiety Depression Diabetes mellitus (HCC) Hyperlipidemia Hypertension Coronary artery disease Aortic valve regurgitation Chronic kidney disease Family History Medical History Relation Name Comments Heart disease Father Cancer Other Relation Name Status Comments Father Other Social History Tobacco Use Types Packs/Day Years [...] on file Legal Sex Female 7:45 PM BRUSH MAKER Gender Identity Not on file Sexual Orientation Not on file Obstetrics History Last Filed Vital Signs Vital Sign Reading Time Taken Comments Blood Pressure 118/82 08/23/2024 2:00 PM BRUSH MAKER Pulse 82 08/23/2024 2:00 PM BRUSH MAKER Temperature 36.5 ??C (97.7 ??F) 02/18/2022 2:55 PM CD T Respiratory Rate 17 05/17/2023 1:17 PM CDT Oxygen Saturation 99% 08/23/2024 2:00 PM BRUSH MAKER Inhaled Oxygen Concentration - - Weight 107 kg (236 lb) 08/23/2024 2:00 PM BRUSH MAKER Height 170.2 cm (5' 7 ) 08/23/2024 2:00 PM BRUSH MAKER Body Mass Index 36.96 08/23/2024 2:00 PM BRUSH MAKER Plan of Treatment Health Maintenance Due Date Last Done Comments Albumin Creatinine Ratio, Urine 1968 Breast Cancer Screening-Mammogram 1968 Colon Cancer Screening-Colonoscopy 1968 Depression Screening 1968 Hemoglobin A1C 1968 Hepatitis C Screening 1968 Dilated Eye Exam 1968 Foot Exam 1968 Pneumococcal vaccine <65 (1 of 2 - PCV) 1974 DTaP/Tdap/Td Vaccine (1 - Tdap) 1979 Hepatitis B Screening 1986 Regular Well Visit/Exam 18-64 1986 Zoster Vaccine (1 of 2) 2018 eGFR 02/18/2023 02/18/2022 Influenza Vaccine (#1) 2024 Lipid Panel 08/23/2025 08/23/2024 Procedures Procedure Name Priority Date/Time Associated Diagnosis Comments ELECTROCARDIOGRAM REPORT Routine 024 4:02 PM BRUSH MAKER Nonrheumatic aortic valve insufficiency POCT LIPID PANEL Routine 08/23/2024 2:54 PM BRUSH MAKER Coronary artery disease involving [place] coronary artery of [place] heart without angina pectoris Hyperlipidemia associated with type 2 diabetes mellitus (HCC) EGFR STAT 02/18/2022 1:07 PM CDT from Last 3 Months or Most Recently Relevant to Health Maintenance Results * Electrocardiogram Report (08/23/2024 4:02 PM BRUSH MAKER) Rhett Ramírez MD ECG ORDERABLES Final Res ult * POCT lipid panel (08/23/2024 2:54 PM BRUSH MAKER) Cholesterol, POC 234 mg/dL HDL, POC 48 mg/dL Triglycerides, POC 305 mg/dL LDL Cholesterol POC 125 mg/dL Chol/HDL Ratio, POC 4.9 Non-HDL Cholesterol, POC 186 mg/dL Cholesterol Total, POC 234 mg/dL Capillary blood 08/23/2024 2 :54 PM BRUSH MAKER Rhett Ramíerz MD POINT OF CARE TEST ORDERA BLES [...] MD LAB BLOOD ORDERABLES Final Re sult [facility] [address] [facility] [place] [address] from Last 3 Months or Most Recently Relevant to Health Maintenance Insurance [employer] OPEN ACCESS CIGNA OPEN ACCESS CIGNA OPEN ACCESS CIGNA OPEN ACCESS Care Teams Patient Registration Clerk Relationship Specialty Start Date End Date Roland Rojas DO [address] [place] [address] PCP - General Family Medicine 01/24/24
--- OUTSIDE RECORDS SUMMARY | 2024-10-17 16:44 | XMS_ITS | Clinical Summary ---
Author Organization [facility] Twitch Address [address] [facility] [place] [address] Care Team Providers Care Patcher Name Role Phone Radha Kaminski [employer] Primary Care Provider [phone] Harmony Mcrae MD Unavailable Source Comments [facility],non-owned Affiliates and Associated Physician Practices is amultiple site organization consisting of ambulatory clinics and hospital sitesin [place], [place], [place]. This disclosure is being madepursuant to the Care Everywhere program and may not contain all information available regarding this patient. Last updated 18.[facility] Allergies Active Allergy Reactions Criticality Noted Date [...] fluticasone propionate (FLONASE) 50 MCG/ACT nasal spray [place] 2 (two) sprays into each nostril once daily Active blood glucose (bublTOUCH ULTRA) test strip USE TO TEST THREE TIMES A DAY 09/15/2021 Active estradiol (ESTRACE) 2 MG tablet Take 1 (one) tablet by mouth every 24 hours Active Multiple Vitamins-Minerals (MULTI VITAMIN/MINERALS) TABS Take 1 (one) tablet by mouth once daily Active [facility]-3 Fatty Acids (FISH OIL) 1000 MG capsule Take 1 (one) capsule by mouth once daily Active Cholecalciferol 1.25 MG (30280 UT) Take 1 capsule by mouth every [...] naloxone HCl (Narcan) 4 MG/0.1ML nasal spray [place] 1 (one) spray into the nose Active [...] day by topical route. Active HYDROcodone-aceta minophen ([place]) 5-325 MG tablet Take 1 (one) tablet by mouth two times daily at 4am and 4pm Active indomethacin (Indocin) 50 MG capsule TAKE 1 CAPSULE BY MOUTH THREE TIMES A DAY ADMINISTER WITH FOOD OR MILK Active mupirocin (Bactroban) 2 % ointment 1 APPLIC TOPICALLY TWICE A DAY Active nystatin (Mycostatin) 277722 UNIT/ML suspension Take 5 mL 4 times [...] Comments Blood Pressure 122/68 10/06/2023 2:03 PM WAREHOUSE CONSULTANT Pulse 79 10/06/2023 2:03 PM WAREHOUSE CONSULTANT Temperature 36.6 ??C (97.9 ??F) 01/07/2022 2:03 PM CD T Respiratory Rate 16 08/02/2023 2:35 PM WAREHOUSE CONSULTANT Oxygen Saturation 97% 08/02/2023 2:35 PM WAREHOUSE CONSULTANT Inhaled Oxygen Concentration - - Weight 93.9 kg (207 lb) 10/06/2023 2:03 PM WAREHOUSE CONSULTANT Height 170.2 cm (5' 7 ) 10/06/2023 2:03 PM WAREHOUSE CONSULTANT Body Mass Index 32.42 10/06/2023 2:03 PM WAREHOUSE CONSULTANT Plan of Treatment Health Maintenance Due Date Last Done Comments COLOGUARD (AGES 45-75) - COL ON CA SCREENING 1968 COLON MONITORING 1968 COLONOSCOPY - COLON CA SCREENING 1968 CT COLONOGRAPHY - COLON CA SCREENING 1968 Colorectal Cancer Screening 1968 FIT - COLON CA SCREENING 1968 FLEX SIG - COLON CA SCREENING 1968 MAMMOGRAM 1968 PAP SMEAR 1968 HIV SCREENING 1983 DTAP/TDAP/TD VACCINES (1 - Tdap) 1987 HEPATITIS B VACCINE (1 of 3 - 19+ 3-dose series) 1987 PNEUMOCOCCAL VACCINE 50+ (1 of 1 - PCV) 2018 ZOSTER VACCINE (1 of 2) 2018 COVID-19 VACCINE ( - 2023-2 5 season) 2024 INFLUENZA VACCINE (#1) 2024 DEPRESSION SCREENING 09/19/2024 SCREENING FOR DIABETES 08/02/2026 08/02/2023 HEPATITIS C SCREENING Completed 08/02/2023 , 12/03/2021 HIB VACCINE Aged Out No longer eligi ble based on patient's age to complete this topic HPV VACCINE Aged Out No longer eligi ble based on patient's age to complete this topic MENINGOCOCCAL (Group B) VACCINE Aged Out No longer eligible b ased on patient's age to complete this topic MENINGOCOCCAL VACCINE Aged Out No ramone nyasia eligible based on patient's age to complete this topic PNEUMOCOCCAL VACCINE Aged Out No long er eligible based on patient's age to complete this topic Procedures Procedure Name Priority Date/Time Associated Diagnosis Comments COMPREHENSIVE METABOLIC PANEL Routine 08/02/2023 3:29 PM WAREHOUSE CONSULTANT Arthralgia, unspecified joint HEPATITIS SCREEN ACUTE ([facility]) Routine 08/02/2023 3:28 PM WAREHOUSE CONSULTANT Arthralgia, unspecified joint from Last 3 Months or Most Recently Relevant to Health Maintenance Results * (ABNORMAL) COMPREHENSIVE METABOLIC PANEL (08/02/2023 3:29 PM WAREHOUSE CONSULTANT) Glucose 95 70 - 99 mg/dL [facility] [...] BLOOD SPECIMEN / Unknown 08/02/2023 3:29 PM WAREHOUSE CONSULTANT 08/02/2023 Narrative Resulting Agency Comment Lab Testing performed at: [facility] ??Critical access hospital [id number] Harmony Mcrae MD LAB - CHEMISTRY KYRIE BELTRAN [facility] INSURANCE BILL [address] [place] [address] * HEPATITIS SCREEN ACUTE ([facility]) (08/02/2023 3:28 PM WAREHOUSE CONSULTANT) Hepatitis A Virus Antibody IgM Negative Negative [facility] INSURANCE BILL Hepatitis B Virus Surface Antigen Negative Negative [facility] INSURANCE BILL Hepatitis B Core Virus Antibody IgM Negative Negative [facility] INSURANCE BILL Hepatitis C Antibody Non Reactive Non Reactive [facility] INSURANCE BILL Blood BLOOD SPECIMEN / Unknown 08/02/2023 3:28 PM WAREHOUSE CONSULTANT 08/02/2023 Narrative Resulting Agency Comment Lab Testing performed at: [facility] ??Critical access hospital [id number] Harmony Mcrae MD LAB - CHEMISTRY KYRIE BELTRAN Performing Organization Address City/[facility]/ZIP Co de Phone Number [facility] INSURANCE BILL [address] [place] [address] from Last 3 Months or Most Recently Relevant to Health Maintenance Care Teams Patcher Relationship Specialty Start Date End Date Radha Kaminski APRN-SCOTT [address] [address] PCP - General Nurse Practitioner Family 12/03/21 [place] [address] [place] [id number] [facility] 12/03/21
--- OUTSIDE RECORDS SUMMARY | 2024-10-17 16:45 | XMS_ITS | Data Portability ---
Author Organization [place] [facility] [employer], Main Office Address [address] [place] [address] Care Team Providers Care Talent Associate Name Role Phone FATOURADHA WAGGONER Primary Care Provider HOPEDILSONRADHA Referring Provider [phone] Assessment Encounter Date Assessment Date Assessment LastModified by Organization Details LastModified Time 02/23/2023 02/23/2023 WWE- SPOT CHECKER- [place] Mammo- 11/2021, ordered DEXA- 11/2021 Cscope-ordered- Mil- family hx (grandmother) WEA- 02/23/23 Call office if worse, ER if life threatening illness RTC 6 months and PRN She voices understanding of plan and agrees She has previously been warned that if she continues to be rude and hateful to the staff, she will be discharged from my care. She voices understanding of this. [email or web address] Not available 02/23/2023 16:47:43 Plan of Treatment Reminders Order Date Submit Date Provider Last Modified By Organization Details Last Modified Time Details Appointments None recorded. Lab vitamin D, 25-hydroxy, total, serum [address] [facility], [address], [place], [address], 3 04:44:38 Referral None recorded. Procedures colonoscopy screening (PROC) 2022 023 [email or web address] Jaeger MD, [address], [address], [place], [address], 3 14:31:06 Surgeries None recorded. Imaging MAMMO, screening, bilateral 2022 023 [email or web address] [facility], [address], [address], [address], 15:56:08 Medication Orders None recorded. Patient TargetsNo targets recorded. Patient Instructions Encounter Date Encounter Id Patient Instructions Last Modified By Organization Details Last Modified Time 02/23/2023 [id number] INFLUENZA VACCIN E TD/TDAP Recommended today, patient declined Ordered Patient will get at local pharmacy/health department PNEUMONIA VACCINE Ordered Recommend ed today, patient declined Patient will get at local pharmacy/health department Recomm ended at age 63 SHINGLES Ordered Recommend ed today, patient declined Patient will get at local pharmacy/health department MAMMOGRAM: Last Mammogram __ Recommended today, but patient declined Ordered DEXA SCAN CERVICAL SCREENING/PELVIC EXAMINATION Recommended today, but patient declined Ordered No screening necessary patient is up to date COLORECTAL SCREENING: Last Colonoscopy Recommended today, but patient declined Ordered DEPRESSION SCREENING BMI Overweight NUTRITION Heart Healthy Diet Recommendati on of a 1500 caloric intake for weight loss is advised Diabetic Diet PHYSICAL ACTIVITY minimum of 10-20 minutes of activity that causes mild breathlessness/da y minimum of 20-30 minutes activity that causes mild breathlessness/da y minimum of 30-40 minutes of activity that causes mild breathlessness/da y VISION Ordered Recommend ed today ALCOHOL USE No alcohol use TOBACCO USE former smoker current tobacco use Patient is not interested in smoking cessation at this time- Handout given LUNG CANCER SCREENING SEXUALLY ACTIVE Yes, Patient is in monogamous relationship HEPATITIS C SCREENING Not indicated GLUCOSE SCREENING LIPID SCREENING Not available 02/23/2023 16:51:34 Reason for Referral None Reported. Results Created Date Observation Date Name Description Value Unit Range Abnormal Flag Note LastModifiedBy Organization Detail LastModifiedTime 11/08/19 23 11/08/2022 US, renal No observ ation record ed. [id number] Pending Sale To [facility] [address] [facility], [place], [address], 11/17/2022 20:40:02 11/11/19 23 11/11/2022 CT, cervi daina spine , w/o contr ast No observ ation record ed. [id number] Pending Sale To [facility] [address] [place], [address], 11/17/2022 20:40:02 11/11/19 23 11/11/2022 CT, lumba r spine , w/o contr ast No observ ation record ed. [id number] Pending Sale To [facility] [address] [place], [address], 11/17/2022 20:40:02 11/26/19 23 11/24/2022 XR, lumba r spine No observ ation record ed. [place] [address] [place], [address], 11/26/2022 17:06:46 11/26/19 23 11/24/2022 XR, cervi daina spine No observ ation record ed. [address] [place], [address], 11/26/2022 17:07:30 01/30/20 23 01/29/2023 XR, wrist No observ ation record ed. [address] [place], [address], 02/01/2023 11:13:37 07/22/20 23 07/22/2023 CT, head + brain , w/o contr ast No observ ation record ed. [address] [place], [address], 07/28/2023 17:21:08 Result Notes None recorded. Problems Name Problem SNOMED Code Status Onset Date Resolution Date Notes Provider Name and Address Organization Details Recorded Time Carpal tunnel syndrome of right wrist 5702822243483 08 Active 2021 Not Available [facility] 3 20:39:10 Suppurativ e arthritis 638581450 Active Not Available [facility] 3 20:39:10 Mixed anxiety and depressive disorder 970396916 Active 2022 ASIM Infante-C [address], [place], [address] , [facility] 19:36:32 Type 2 diabetes mellitus without complicati on 791287827 Active 2022 ASIM Infante-C [address], [address], [place], [address] , [facility] 19:36:38 Neuropathy 385215190 Active 2022 ASIM Infante-C [address], [address], [place], [address] , [facility] 19:36:54 Asthma 372334574 Active 2022 ASIM Infante-C [address], [address], [place], [address] , [facility] 19:36:57 Allergic rhinitis 52345895 Active 2022 ASIM Infante-C [address], [place], [address] , [facility] 19:37:23 Cardiovasc ular stress test abnormal 249696923 Active 2022 ASIM Infante-C [address], [address], [place], [address] , [facility] 19:38:27 Vitamin D deficiency 20918316 Active 2022 ASIM Infante-C [address], [place], [address] , [facility] 19:38:34 Fatigue 95876755 Active 2022 ASIM Infante-C [address], [place], [address] , [facility] 19:38:37 Chronic pain syndrome 537664843 Active 2022 Iliana [address] [facility] 14:31:47 Problem Notes None recorded. Procedures Surgical History Date Name Laterality Status Provider Name and Address Organization Details Recorded Time Hysterectomy completed Not Available [facility] 11/17/2022 20:38:32 Neck Surgeries completed Not Available [facility] 11/17/2022 20:38:32 Back Surgeries completed Not Available [facility] 11/17/2022 20:38:32 Foot Surgery completed Not Available [facility] 11/17/2022 20:38:32 Knee Surgery completed Not Available [facility] 11/17/2022 20:38:32 Imaging Results Imaging Date Name Status LastModified by Organiz ation Details LastModified Time 11/08/2022 US, renal completed [id number] Pending Sale To [facility] [address] [place], [address], 11/17/2022 20:40:02 11/11/2022 CT, cervical spine, w/o contrast completed [id number] Pending Sale To [facility] [address] [place], [address], 11/17/2022 20:40:02 11/11/2022 CT, lumbar spine, w/o contrast completed [id number] Pending Sale To [facility] [address] [place], [address], 11/17/2022 20:40:02 11/24/2022 XR, lumbar spine completed [email or web address] [place], [address], 11/26/2022 17:06:46 11/24/2022 XR, cervical spine completed [email or web address] [place], [address], 11/26/2022 17:07:30 01/29/2023 XR, wrist completed [address] [facility] [address] [facility] [address] [place], [address], 02/01/2023 11:13:37 07/22/2023 CT, head + brain, w/o contrast completed [email or web address] Pending Sale To [facility] [address] [place], [address], 07/28/2023 17:21:08 Procedure Notes None recorded. Medical Equipment None Reported. Allergies Allergen ID Allergen Name Allergen Category Reaction Reaction Severity Criticality Documentation Date Start Date Code Code System Note Provider Name and Address Organization Details Recorded Time 36964 Compazine medicatio n Not available Not available Not available 11/17/202249046 6 RxNorm (lock jaw) Not Available [facility] 20:39:59 Medications Name Sig Start Date Stop Date Status Note LastModified by Organization Details LastModified Time atorvastati n 40 mg tablet 11/12 completed Not Available Not Available Not Available atorvastati n 80 mg tablet 03/31 completed Not Available Not Available Not Available nystatin 100,000 unit/mL oral suspension Take 5 mL 4 times a day by oral route for 7 days. active Not Available Not Available No t Available ibuprofen 800 mg tablet active Not Available Not Available Not Available hydrocodone 5 mg-acetamin ophen 325 mg tablet TAKE 1 TABLET BY MOUTH TWICE A DAY FOR 30 DAYS 02/23 completed Not Available Not Available Not Available metronidazo le 0.75 % (37.5 mg/5 gram) vaginal gel APPLY AT BEDTIME FOR 5 NIGHTS 11/12 completed Not Available Not Available Not Available prednisone 20 mg tablet TAKE 1 TABLET BY MOUTH EVERY DAY FOR 5 DAYS 11/12 completed Not Available Not Available Not Available prednisone 5 mg tablet TAKE 7 TABLETS BY MOUTH EVERY DAY FOR 3 DAYS, THEN DECREASE BY 1 TABLET DAILY UNTIL GONE 02/23 completed Not Available Not Available Not Available estradiol 0.1 mg/24 hr semiweekly transdermal patch 12/02 completed Not Available Not Available Not Available clobetasol 0.05 % topical cream 02/23 completed Not Available Not Available Not Available penicillin V potassium 500 mg tablet TAKE 1 TABLET BY MOUTH FOUR TIMES A DAY 12/02 completed Not Available Not Available Not Available methylpheni date ER 54 mg tablet,exte nded release 24 hr TAKE 1 TABLET BY MOUTH IN THE MORNING active Not Available Not Available No t Available metronidazo le 500 mg tablet TAKE 1 TABLET BY MOUTH TWICE A DAY FOR 7 DAYS 12/02 completed Not Available Not Available Not Available fluocinonid e 0.05 % topical ointment APPLY TO AFFECTED AREAS ON HANDS NIGHTLY FOR 3 WEEKS. 03/31 completed Not Available Not Available Not Available amlodipine 5 mg tablet 11/12 completed Not Available Not Available Not Available allopurinol 100 mg tablet TAKE 1 TABLET BY MOUTH EVERY DAY 11/12 completed Not Available Not Available Not Available sulfamethox azole 800 mg-trimetho prim 160 mg tablet TAKE 1 TABLET BY MOUTH EVERY 12 HOURS FOR UTI 12/02 completed Not Available Not Available Not Available tramadol 50 mg tablet 11/12 completed Not Available Not Available Not Available Toprol XL 200 mg tablet,exte nded release 11/12 completed Not Available Not Available Not Available glimepiride 2 mg tablet QD active Not Available Not Available Not Available alprazolam 0.5 mg tablet 11/12 completed Not Available Not Available Not Available magnesium oxide 400 mg (241.3 mg magnesium) tablet TAKE 1 TABLET BY MOUTH EVERY DAY active Not Available Not Available No t Available OneTouch Ultra Test strips active Not Available Not Available Not Available amlodipine 10 mg tablet 11/12 completed Not Available Not Available Not Available cephalexin 500 mg capsule Take 1 capsule 3 times a day by oral route. active Not Available Not Available No t Available lisinopril 10 mg tablet active Not Available Not Available Not Available indomethaci n 50 mg capsule TAKE 1 CAPSULE BY MOUTH THREE TIMES A DAY ADMINISTE R WITH FOOD OR MILK active Not Available Not Available No t Available gabapentin 300 mg capsule Take 1 capsule 3 times a day by oral route. active Not Available Not Available No t Available estradiol 2 mg tablet Take 1 tablet every day by oral route. active Not Available Not Available No t Available montelukast 10 mg tablet TAKE ONE TABLET BY MOUTH ONCE DAILY active Not Available Not Available No t Available mupirocin 2 % topical ointment 1 APPLIC TOPICALLY TWICE A DAY 02/23 completed Not Available Not Available Not Available ergocalcife rol (vitamin D2) 1,250 mcg (50,000 unit) capsule three times weekly 02/23 completed Not Available Not Available Not Available methylpredn isolone 4 mg tablets in a dose pack TAKE 6 TABLETS ON DAY 1 DIRECTED ON PACKAGE AND DECREASE BY 1 TAB EACH DAY FOR A TOTAL OF 6 DAYS 02/03 completed Not Available Not Available Not Available albuterol sulfate HFA 90 mcg/actuati on aerosol inhaler INHALE 2 PUFFS EVERY 4 HOURS BY INHALATIO N ROUTE NEEDED active Not Available Not Available No t Available fluticasone propionate 50 mcg/actuati on nasal spray,suspe nsion USE 2 SPRAYS NASALLY DAILY active Not Available Not Available No t Available metformin ER 500 mg tablet,exte nded release 24 hr 11/12 completed Not Available Not Available Not Available naproxen 500 mg tablet TAKE 1 TABLET BY MOUTH TWICE A DAY 11/12 completed Not Available Not Available Not Available methylpheni date ER 36 mg tablet,exte nded release 24 hr TAKE 1 TABLET BY MOUTH EVERY DAY IN THE MORNING 11/01 completed Not Available Not Available Not Available amoxicillin 875 mg-potassiu m clavulanate 125 mg tablet Take 1 tablet every 12 hours by oral route for 7 days. active Not Available Not Available No t Available amoxicillin 500 mg-potassiu m clavulanate 125 mg tablet TAKE 1 TABLET (500 MG OF AMOXICILL IN TOTAL) BY MOUTH 2 (TWO) TIMES DAILY FOR 7 DAYS. 12/02 completed Not Available Not Available Not Available oxycodone 5 mg tablet TAKE 1 TABLET BY MOUTH ORALLY 2 TIMES A DAY NEEDED 30 DAYS active Not Available Not Available No t Available cyclobenzap rine 5 mg tablet TAKE 1 TABLET BY MOUTH THREE TIMES A DAY 02/23 completed Not Available Not Available Not Available rosuvastati n 20 mg tablet active Not Available Not Available Not Available bupropion HCl XL 150 mg 24 hr tablet, extended release active Not Available Not Available Not Available duloxetine 30 mg capsule,del ayed release TAKE 1 CAPSULE BY MOUTH EVERY DAY 03/31 completed Not Available Not Available Not Available fenofibrate 160 mg tablet 12/02 completed Not Available Not Available Not Available hydrochloro thiazide 12.5 mg tablet 11/12 completed Not Available Not Available Not Available Symbicort 160 mcg-4.5 mcg/actuati on HFA aerosol inhaler Inhale 2 puffs twice a day by inhalatio n route. active Not Available Not Available No t Available Vyvanse 30 mg capsule TAKE 1 CAPSULE BY MOUTH EVERY DAY IN THE MORNING 02/23 completed Not Available Not Available Not Available cholecalcif mechelle (vitamin D3) 1,250 mcg (50,000 unit) capsule active Not Available Not Available Not Available oxycodone 10 mg tablet Take 1 tablet every 4-6 hours by oral route as needed. 01/20 completed Not Available Not Available Not Available icosapent ethyl 1 gram capsule active Not Available Not Available Not Available Trulicity 1.5 mg/0.5 mL subcutaneou s pen injector active Not Available Not Available Not Available Hysingla ER 30 mg tablet, crush resistant, extended release active Not Available Not Available Not Available naloxone 4 mg/actuatio n nasal spray active Not Available Not Available Not Available Vitals Date Recorded Body mass index (BMI) Body height Body weight Provider Name and Address Organization Details Last Updated DateTime 05/25/2022 34.5 kg/m2 170.18 cm 46393.32 g Not Available [facility] 11/17/2022 20:38:59 Date Recorded Body mass index (BMI) Body height Body weight Provider Name and Address Organization Details Last Updated DateTime 08/24/2022 33.2 kg/m2 170.18 cm 26780.58 g Not Available [facility] 11/17/2022 20:38:59 Date Recorded Body mass index (BMI) Body height Oxygen saturation Oxygen saturation in Arterial blood by Pulse oximetry Heart rate Body temperature Body weight Systolic blood pressure Diastolic blood pressure Provider Name and Address Organization Details Last Updated DateTime 2 32.6 kg/m2 170.18 cm 97 % 97 % 98 /min 97.7 [degF] 86380.2 1 g 132 mm[Hg] 76 mm[Hg] Not Available [facility] 20:38:57 Date Recorded Body mass index (BMI) Body height Oxygen saturation Oxygen saturation in Arterial blood by Pulse oximetry Heart rate Body temperature Body weight Systolic blood pressure Diastolic blood pressure Provider Name and Address Organization Details Last Updated DateTime 3 31.3 kg/m2 170.18 cm 97 % 97 % 98 /min 98.1 [degF] 04886.4 7 g 128 mm[Hg] 76 mm[Hg] Not Available [facility] 3 20:38:57 Date Recorded Body height Body mass index (BMI) Body weight Body temperature Heart rate Oxygen saturation Oxygen saturation in Arterial blood by Pulse oximetry Systolic blood pressure Diastolic blood pressure Provider Name and Address Organization Details Last Updated DateTime 3 170.18 cm 28.2 kg/m2 01370.6 3 g 98.4 [degF] 82 /min 98 % 98 % 118 mm[Hg] 74 mm[Hg] KAILYN Perez - [place] [employer] 3 16:17:44 Social History Question Answer Notes LastModified by Organizat ion Details LastModified Time Tobacco Smoking Status Never Smoker Not Available [facility] 11/17/2022 20:38:28 What Is Your Level Of Alcohol Consumption? None [id number] Information not available 11/17/2022 Do You Wear A Helmet When Biking? No MIGRATION.22117 [id number] Information not available 11/17/2022 What Is Your Level Of Caffeine Consumption? Moderate MIGRATION.72385 23564 Information not available 11/17/2022 In The 14 Days Before Symptom Onset, Have You Had Close Contact With A Laboratory-confir med COVID-19 While That Case Was Ill? No MIGRATION.62274 [id number] Information not available 11/17/2022 In The 14 Days Before Symptom Onset, Have You Had Close Contact With A Person Who Is Under Investigation For COVID-19 While That Person Was Ill? No MIGRATION.74853 12537 Information not available 11/17/2022 What Type Of Diet Are You Following? REGULAR MIGRATION.18189 36141 Information not available 11/17/2022 Have There Been Any Changes To Your Family Or Social Situation? No MIGRATION.53014 09070 Information not available 11/17/2022 What Is The Fluoride Status Of Your Home? Unknown MIGRATION.49096 04098 Information not available 11/17/2022 Do You Use Insect Repellent Routinely? No MIGRATION.90609 93630 Information not available 11/17/2022 Where Do You Live? [place] MIGRATION.95170 37954 Information not available 11/17/2022 What Was The Date Of Your Most Recent Tobacco Screening? 02/23/2023 [email or web address] Information not available 02/23/2023 Do You Have Any Pets? Yes MIGRATION.07641 15001 Information not available 11/17/2022 Do You Have Smoke And Carbon Monoxide Detectors In Your Home? Yes MIGRATION.01584 14805 Information not available 11/17/2022 Are You Passively Exposed To Smoke? No MIGRATION.43789 50771 Information not available 11/17/2022 Are There Any Smokers In Your House? No MIGRATION.00375 80435 Information not available 11/17/2022 Do You Feel Stressed (tense, Restless, Nervous, Or Anxious, Or Unable To Sleep At Night)? [id number] MIGRATION.50669 63904 Information not available 11/17/2022 Do You Use Sunscreen Routinely? No MIGRATION.91791 36333 Information not available 11/17/2022 Have You Recently Traveled Abroad? No MIGRATION.14454 88563 Information not available 11/17/2022 Do You Have Any Dietary Restrictions? No MIGRATION.07038 30263 Information not available 11/17/2022 Do You Or Have You Ever Used Any Other Forms Of Tobacco Or Nicotine? No MIGRATION.44406 81827 Information not available 11/17/2022 Sex: Unknown Functional Status Question Answer Note LastModified by Organizat ion Details LastModified Time What is your exercise level? Moderate [id number] Information not available 11/17/2022 Mental Status None recorded. Family History Relationship Description Onset Age of this Age Resolved Age Notes LastModified by Organization Details LastModified Time Mother Family history of malignant neoplasm [id number] Not available 11/17/2022 20:38:33 Medical History Condition Response DIABETES, TYPE Y Gynecological HistoryNo gynecological history recorded. Obstetrics History GPAL:G 0 P 0 0 0 0 Past Encounters Encounter ID Performer Location Encounter Start Date Encounter Closed Date Diagnosis/Indication Diagnosis SNOMED-CT Code Diagnosis ICD10 Code Diagnosis Note [id number] [facility] [address], [place] [address] 12/02/2021 00:00:00 12/02/2021 17:07:21 [id number] [facility] [address] [place] [address] [place] [address] 12/30/2021 00:00:00 12/30/2021 14:49:27 [id number] [facility] [place] [address] [place] [address] 01/12/2022 00:00:00 01/12/2022 15:29:24 [id number] [facility] Shawnvi llyani [address] [place] [address] [place] [address] 01/20/2022 00:00:00 01/20/2022 14:52:49 [id number] [facility] Shawn llyani [address] [place] [address] [place] [address] 02/03/2022 00:00:00 02/03/2022 15:30:47 [id number] [facility] Shawn mulu [address] [place] [address] [place] [address] 03/31/2022 00:00:00 03/31/2022 16:28:57 [id number] [facility] [place] [address] [place] [address] 04/09/2022 00:00:00 04/09/2022 13:24:19 [id number] [facility] [place] [address] [place] [address] 04/27/2022 00:00:00 04/27/2022 16:52:36 [id number] [facility] [place] [address] [place] [address] 05/25/2022 00:00:00 05/25/2022 16:49:47 [id number] [facility] [place] [address] [place] [address] 08/24/2022 00:00:00 08/24/2022 17:22:21 [id number] [facility] [place] [address] [place] [address] [place] [address] 08/25/2022 00:00:00 08/25/2022 16:57:02 [id number] [facility] Internal [facility] [address] [place] [address] 11/01/2022 00:00:00 11/01/2022 16:01:52 [id number] Radha Kaminski, [employer] [facility] Internal Med Gail mar[facility]elli [address] [place] [address] 02/23/2023 16:02:31 02/23/2023 16:32:14 Mixed anxiety and depressive disorder 012674757 F41.8 now following psychiatry - [facility] any change in mood or behaviorSh e is able to commit to safety todayconti nue counseling Type 2 wendy betes mellitus without complication 243077171 E11.9 on Trulicity, glimiperid efollows endocrinol ogy- Dr. Garcia in [facility] eye exam- 11/2021- encouraged her to schedule pt is aware of side effects, risks, benefitspt denies any personal or family history of MEN II or MTC, denies and personal history of pancreatit ispt knows to call the office if any severe n/v or abdominal pain Neuropathy 392330684 G62 .9 follows podiatry- Dr. Harley Gipson gabapentin from [facility] 033149256 J45.90 9 on proair prnon Symbicort, she is worse at effects, risks, benefitssh e is aware to rinse and spit after use Carpal julita kendra syndrome of right wrist 5537481860 06560 G56.01 now following hand surgery- Dr. Osborne Allergic rhinitis 355092 04 J30.9 on flonase and singulairc all office if any change in mood or behavior Body mass index 30+ - obesity 215782252 Z68.31 recommend healthy, well balanced mealsfocus on lean meats, fresh vegetables , fresh fruits, whole grainsredu ce fast/proce ssed foods or eating out to no more than 1-2 times per weekaim to get 30 min of exercise most days of the week- walking is a great choice Cardiovasc ular stress test abnormal 992406562 R94.39 cardiac cath was ok per cardiologi st note Vitamin D deficiency 347 79270 E55.9 hold vitamin d x 4 weeks and then repeat levelnever got repeat level- encouraged her to get Fatigue 53309401 R53.83 no explanatio n for fatigue in labs, recommend sleep study- she declines Screening mammography 24 349029 Z12.31 Family his tory of cancer of colon 353118202 Z80.0 Adult heal th examination [id number] Z00.01 Depression screening 171 065746 Z13.31 Body mass index 25-29 - overweight [id number] Z68.28 recommend healthy, well balanced mealsfocus on lean meats, fresh vegetables , fresh fruits, whole grainsredu ce fast/proce ssed foods or eating out to no more than 1-2 times per weekaim to get 30 min of exercise most days of the week- walking is a great choicealso recommend resistance training 2-3 times per week Health Concerns Section Related Observation LastModified by Organization Detai ls LastModified Time None Recorded Concern Status LastModified by Organization Details LastModified Time None Recorded Advance Directives Directive None Recorded Payers Encounter Date Sequence Insurance Name Policy Number Policy Guo Covered Member ID Guo Member ID Guarantor Name 02/23/2023 1 [facility] [id number] Nelsyvane Croft [id number] Niles Croft Notes Date Note Type Note Provider Name and Address Organization Details Recorded Time 02/23/2023 text/html Niles presents today for follow up. She is also due for annual wellness exam. she reports she has had a ne the foot surgery with her whiting machine operator. She follows up again in a couple weeks. She is just on a regular tennis shoe and not in a boot at this time. She continues to follow Endocrinology for her diabetes. They order all of her labs. She also continues to follow with her business operations manager regularly. She still refuses her sleep study. She did not get her colonoscopy that I ordered last visit. We will get this reordered for her. She does report today that her grandmother actually had colon cancer. She follow psychiatry for her mood meds. She denies any SI or HI today. She never got her repeat vitamin-D level done. She is due for mammogram. Radha Kaminski, MINISTER HELPER-C [address] [facility], [facility] [address], [place], [address], [facility] [employer] 02/23/2023 16:52:24 OBGyn Episode No OBEpisode recorded.
--- OUTSIDE RECORDS SUMMARY | 2024-10-17 16:45 | XMS_ITS ---
Author Organization [facility] Address [address] [facility] [address] [place] [address] Care Team Providers Care Dietetic Technician Registered Name Role Phone Roland Rojas DO Primary Care Provider Unavail Julian Mcconnell Unavailable [phone] Social History Sex Assigned At : Social History Observation Description Sex Assigned At Female Encounters Encounter Location Date Provider Diagnosis [facility] [place] [place] [address] [facility] [address] [facility] [address] [place] [address] 09/03/2024 Julian Cummings Plan Of Treatment Next Appt Details Provider Name:Julian shaw, 11/22/2024 01:15:00 PM, [address], [facility] [address], [place], [address], Progress Notes * IZABELA PARRA GDOB:1969 (54 yo F)Acc No.[id number]:09/03/2024 Patient:?IZABELA PARRA :1970???Age:54 Y???Sex:Female Address:[address] [place], [address] * true * Date:? Generated for Printi ng/Faxing/eTransmitting on:?10/17/2024 04:44 PM CASKET TRIMMER
--- OUTSIDE RECORDS SUMMARY | 2024-10-17 17:04 | XMS_ITS | Patient Health Summary ---
Author Organization [facility] Address [address] [place] [address] Care Team Providers Care Transport Analyst Name Role Phone Radha Kaminski MYRON-FIFTH HAND Primary Care Provider [phone] Harmony Mcrae MD Unavailable Note from [facility],non-owned Affiliates and Associated Physician Practices is amultiple site organization consisting of ambulatory clinics and hospital sitesin [place], [place], [place] and [place]. This disclosure is being madepursuant to the Care Everywhere program and may not contain all information available regarding this patient. Last updated 18.[facility] Allergies * Prochlorperazine(Other,Shortness of Breath) -High [...] fluticasone propionate (FLONASE) 50 MCG/ACT nasal spray [place] 2 (two) sprays into each nostril once daily * blood glucose (GreenFuel ULTRA) test strip(Started 09/15/2021) USE TO TEST THREE TIMES A DAY * estradiol (ESTRACE) 2 MG tablet Take 1 (one) tablet by mouth every 24 hours * Multiple Vitamins-Minerals (MULTI VITAMIN/MINERALS) TABS Take 1 (one) tablet by mouth once daily * [place]-3 Fatty Acids (FISH OIL) 1000 MG capsule Take 1 (one) capsule by mouth once daily * Cholecalciferol 1.25 MG (13891 UT) Take 1 capsule by mouth every [...] naloxone HCl (Narcan) 4 MG/0.1ML nasal spray [place] 1 (one) spray into the nose * [...] every day by topical route. * HYDROcodone-acetaminophen ([place]) 5-325 MG tablet Take 1 (one) tablet by mouth two times daily at 4am and 4pm * indomethacin (Indocin) 50 MG capsule TAKE 1 CAPSULE BY MOUTH THREE TIMES A DAY ADMINISTER WITH FOOD OR MILK * mupirocin (Bactroban) 2 % ointment 1 APPLIC TOPICALLY TWICE A DAY * nystatin (Mycostatin) 308403 UNIT/ML suspension Take 5 mL 4 times [...] Comments Blood Pressure 122/68 10/06/2023 2:03 PM ENROLLMENT CLERK Pulse 79 10/06/2023 2:03 PM ENROLLMENT CLERK Temperature 36.6 ??C (97.9 ??F) 01/07/2022 2:03 PM CD T Respiratory Rate 16 08/02/2023 2:35 PM ENROLLMENT CLERK Oxygen Saturation 97% 08/02/2023 2:35 PM ENROLLMENT CLERK Inhaled Oxygen Concentration - - Weight 93.9 kg (207 lb) 10/06/2023 2:03 PM ENROLLMENT CLERK Height 170.2 cm (5' 7 ) 10/06/2023 2:03 PM ENROLLMENT CLERK Body Mass Index 32.42 10/06/2023 2:03 PM ENROLLMENT CLERK Procedures * XR CHEST 2VW(Performed 08/02/2023) Performed [...] * XR CHEST 2VW (08/02/2023 4:08 PM ENROLLMENT CLERK) Anatomical Region Laterality Modality Chest Radiographic Ramila ging 08/02/2023 4:23 PM ENROLLMENT CLERK Narrative 08/02/2023 4:24 PM ENROLLMENT CLERK PA & Lateral Chest INDICATION: Chest pain [...] JR, MD on 08/02/2023 4:24 PM Harmony Mcrae MD DIAGNOSTIC IMAGING O RDERABLES * CYCLIC CITRUL PEPTIDE ANTIBODY IGG/IGA (CCP) (08/02/2023 3:29 PM ENROLLMENT CLERK) Only the most recent of2 resultswithin the time period is included. CCP Antibodies IgG/IgA 0 0 - 19 units [facility] INSURANCE BILL Comment: ? Negative ? <20 ? Weak positive ?20 - 39 ? Moderate positive ??40 - 59 ? Strong positive ?>59 Blood BLOOD SPECIMEN / Unknown 08/02/2023 3:29 PM ENROLLMENT CLERK 08/02/2023 Narrative Resulting Agency Comment Lab Testing performed at: [facility] [address] ??[facility] [phone] Harmony Mcrae MD LAB - SEROLOGY ORDER WILLI [facility] INSURANCE BILL [address] [place] [address] * POPEYE PANEL COMPREHENSIVE (08/02/2023 3:29 PM ENROLLMENT CLERK) Anti-dsDNA Quantitative <1 0 - 9 IU/mL [facility] INSURANCE BILL Comment: ?Negative ?<5 ?Equivocal ??5 - 9 ?Positive ?>9 FISHER WEIR Antibody 0.2 0.0 - 0.9 AI [facility] [...] Sm (anti-Navarro) ?SLE ?15 - 30% ?--------- FISHER WEIR ?Mixed Connective Tissue ? Disease ? 95% [...] BLOOD SPECIMEN / Unknown 08/02/2023 3:29 PM ENROLLMENT CLERK 08/02/2023 Narrative Resulting Agency Comment Lab Testing performed at: [facility] [place] [address] [facility] ??[facility] [phone] Harmony Mcrae MD LAB - SEROLOGY ORDER WILLI [employer] INSURANCE BILL [address] [place] [address] * RHEUMATOID FACTOR BLOOD QUANTITATIVE (08/02/2023 3:29 PM ENROLLMENT CLERK) Only the most recent of2 resultswithin the time period is included. Rheumatoid Factor <10.0 <14.0 IU/mL [facility] INSURANCE BILL Blood BLOOD SPECIMEN / Unknown 08/02/2023 3:29 PM ENROLLMENT CLERK 08/02/2023 Narrative Resulting Agency Comment Lab Testing performed at: [facility] [address] ??[place] [phone] Harmony Mcrae MD LAB - CHEMISTRY KYRIE BELTRAN Performing Organization Address [facility] Co de Phone Number [facility] INSURANCE BILL [address] [place] [address] * C-REACTIVE PROTEIN (08/02/2023 3:29 PM ENROLLMENT CLERK) C-Reactive Protein <1 0 - 10 mg/L [facility] INSURANCE BILL Blood BLOOD SPECIMEN / Unknown 08/02/2023 3:29 PM ENROLLMENT CLERK 08/02/2023 Narrative Resulting Agency Comment Lab Testing performed at: [place] [address] ??[place] [phone] Harmony Mcrae MD LAB - CHEMISTRY KYRIE BELTRAN Performing Organization Address [facility] Co de Phone Number [facility] INSURANCE BILL [address] [place] [address] * POPEYE BLOOD SCREEN W/REFLEX TITER (08/02/2023 3:29 PM ENROLLMENT CLERK) Only the most recent of2 resultswithin the time period is included. POPEYE Negative [facility] INSURANCE BILL Comment: ?Negative ?? <1:80 ?Borderline ??1:80 ?Positive ?? >1:80 ICAP nomenclature: AC-0 For more information about Hep-2 cell patterns use ANApatterns.org, the official website for the International Consensus on Antinuclear Antibody (POPEYE) Patterns (ICAP). Blood BLOOD SPECIMEN / Unknown 08/02/2023 3:29 PM ENROLLMENT CLERK 08/02/2023 Narrative Resulting Agency Comment Lab Testing performed at: [facility] [address] ??[facility] [phone] Harmony Mcrae MD LAB - CHEMISTRY KYRIE BELTRAN [facility] INSURANCE BILL [address] [place] [address] * VITAMIN D 25-HYDROXY (08/02/2023 3:29 PM ENROLLMENT CLERK) Only the most recent of2 resultswithin the time period is included. Vitamin D, 25 Hydroxy 54.6 30.0 - 100.0 ng/mL [facility] INSURANCE BILL Comment: Vitamin D deficiency has been defined by the [place] of Medicine and an Endocrine Society practice guideline as a level of serum 25-OH vitamin D less than 20 ng/mL (1,2). The Endocrine Society went on to further define vitamin D insufficiency as a level between 21 and 29 ng/mL (2). 1. IOM ([place] of Medicine). 2010. Dietary reference ?? intakes for calcium and D. [place]: The ?? National Academies Press. 2. Reynaldo MF, Adore NC, Dianelys GUAN, et al. ?? Evaluation, treatment, and prevention of vitamin D ?? deficiency: an Endocrine Society clinical practice ?? guideline. JCEM. 2010; 96(7):1911-30. Blood BLOOD SPECIMEN / Unknown 08/02/2023 3:29 PM ENROLLMENT CLERK 08/02/2023 Narrative Resulting Agency Comment Lab Testing performed at: [facility] [place] [address] ??[facility] [phone] Harmony Mcrae MD LAB - CHEMISTRY KYRIE BELTRAN [employer] INSURANCE BILL [address] [place] [address] * ERYTHROCYTE SEDIMENTATION RATE (08/02/2023 3:29 PM ENROLLMENT CLERK) Pathologist [facility] Erythrocyte Sedimentation Rate Westergren 3 0 - 40 mm/hr [facility] INSURANCE BILL Blood BLOOD SPECIMEN / Unknown 08/02/2023 3:29 PM ENROLLMENT CLERK 08/02/2023 Narrative Resulting Agency Comment Lab Testing performed at: [facility] [address] ??[facility] [phone] Harmony Mcrae MD LAB - HEMATOLOGY ORD ERABLES [facility] INSURANCE BILL [address] [place] [address] * CBC WITH DIFFERENTIAL (08/02/2023 3:29 PM ENROLLMENT CLERK) Pathologist [facility] WBC 7.7 3.4 - 10.8 x10E3/uL [facility] [...] BLOOD SPECIMEN / Unknown 08/02/2023 3:29 PM ENROLLMENT CLERK 08/02/2023 Narrative Resulting Agency Comment Lab Testing performed at: [address] ??[facility] [phone] Harmony Mcrae MD LAB - HEMATOLOGY ORD ERABLES [facility] INSURANCE BILL [address] [place] [address] * (ABNORMAL) COMPREHENSIVE METABOLIC PANEL (08/02/2023 3:29 PM ENROLLMENT CLERK) Glucose 95 70 - 99 mg/dL [facility] [...] BLOOD SPECIMEN / Unknown 08/02/2023 3:29 PM ENROLLMENT CLERK 08/02/2023 Narrative Resulting Agency Comment Lab Testing performed at: [facility] [place] [address] ??[facility] [phone] Harmony Mcrae MD LAB - CHEMISTRY KYRIE BELTRAN [facility] INSURANCE BILL [address] [place] [address] * COMPLEMENT C3 C4 PANEL (08/02/2023 3:29 PM ENROLLMENT CLERK) Complement C3 151 82 - 167 mg/dL [facility] INSURANCE BILL Complement C4 36 12 - 38 mg/dL [facility] INSURANCE BILL Blood BLOOD SPECIMEN / Unknown 08/02/2023 3:29 PM ENROLLMENT CLERK 08/02/2023 Narrative Resulting Agency Comment Lab Testing performed at: [facility] [address] ??[facility] [phone] Harmony Mcrae MD LAB - CHEMISTRY KYRIE BELTRNA [facility] INSURANCE BILL [address] [place] [address] * TSH (08/02/2023 3:29 PM ENROLLMENT CLERK) Only the most recent of2 resultswithin the time period is included. TSH 2.400 0.450 - 4.500 uIU/mL [facility] INSURANCE BILL Blood BLOOD SPECIMEN / Unknown 08/02/2023 3:29 PM ENROLLMENT CLERK 08/02/2023 Narrative Resulting Agency Comment Lab Testing performed at: [facility] [place] [address] ??[facility] [phone] Harmony Mcrae MD LAB - CHEMISTRY KYRIE BELTRAN Performing Organization Address City/[facility]/ZIP Co de Phone Number [facility] INSURANCE BILL [address] [place] [address] * HEPATITIS SCREEN ACUTE ([facility]) (08/02/2023 3:28 PM ENROLLMENT CLERK) Hepatitis A Virus Antibody IgM Negative Negative [facility] INSURANCE BILL Hepatitis B Virus Surface Antigen Negative Negative [facility] INSURANCE BILL Hepatitis B Core Virus Antibody IgM Negative Negative [facility] INSURANCE BILL Hepatitis C Antibody Non Reactive Non Reactive [facility] INSURANCE BILL Blood BLOOD SPECIMEN / Unknown 08/02/2023 3:28 PM ENROLLMENT CLERK 08/02/2023 Narrative Resulting Agency Comment Lab Testing performed at: [facility] [address] ??[facility] [phone] Harmony Mcrae MD LAB - CHEMISTRY KYRIE BELTRAN Performing Organization Address [facility] de Phone Number [facility] INSURANCE BILL [address] [place] [address] * INTERPRETATION REFLEXED (08/02/2023 3:28 PM ENROLLMENT CLERK) Interpretation [facility] INSURANCE BILL Comment: Not infected with HCV unless early or acute infection is suspected (which may be delayed in an immunocompromised individual), or other evidence exists to indicate HCV infection. 08/02/2023 3:28 PM ENROLLMENT CLERK 08/02/2023 Narrative Resulting Agency Comment Lab Testing performed at: [facility] [address] ??[facility] [phone] Harmony Mcrae MD LAB - SEROLOGY ORDER WILLI Performing Organization Address [facility] de Phone Number [facility] INSURANCE BILL [address] [place] [address] * DERMATOPATHOLOGY (06/20/2023 12:00 AM CDT) Case Report Dermatopathology Report ? Case: [id number] ? Authorizing Provider: ??Andrzej Aguilar MD ?Collected: [...] characteristic determined by the Dermatopathology Laboratory at [facility], directed by Dr. Jean-Pierre Miller. These tests need not be, and therefore are not, approved by the [place] Food and Drug Administration. The tests are used for clinical purposes. Billing Codes Specimen Charges Stain Charges 02366 1 97351 1 3 4:35 PM CDT DERMATOPATHOLOGY LABORATORY Embedded Images 3 4:35 PM CDT DERMATOPATHOLOGY LABORATORY Pathology/Cytolog y TISSUE SPECIMEN FROM SKIN / Unknown 06/20/2023 06/21/2023 6:10 AM CDT Andrzej Aguilar MD LAB - PATHOLOGY/CYTO LOGY ORDERABLES DERMATOPATHOLOGY LABORATORY [facility] - Department of Dermatology [address], [address] [phone] * ALDOLASE (12/03/2021 2:25 PM CDT) Aldolase 4.5 3.3 - 10.3 U/L [facility] INSURANCE BILL Blood BLOOD SPECIMEN / Unknown 12/03/2021 2:25 PM CDT 12/03/2021 Narrative Resulting Agency Comment Lab Testing performed at: [facility] [address] ??[place] [phone] Harmony Mcrae MD LAB - CHEMISTRY KYRIE BELTRAN [facility] INSURANCE BILL [address] [place] [address] * CK BLOOD (12/03/2021 2:25 PM CDT) Pathologist [facility] CK 39 32 - 182 U/L [facility] INSURANCE BILL Blood BLOOD SPECIMEN / Unknown 12/03/2021 2:25 PM CDT 12/03/2021 Narrative Resulting Agency Comment Lab Testing performed at: [facility] [address] [facility] ??[place] [phone] Harmony Mcrae MD LAB - CHEMISTRY KYRIE BELTRAN Performing Organization Address [facility] Co de Phone Number [facility] INSURANCE BILL [address] [place] [address] * HEPATITIS SCREEN ACUTE (12/03/2021 2:25 PM CDT) [facility] Hepatitis A Virus Antibody IgM Negative [...] with a HCV Nucleic Acid Amplification ?test (871031). Effective January 18, 2022 Hepatitis Panel (4) will be made ?non-orderable. ??[facility] offers order code [id number] Acute Hepatitis. Blood BLOOD SPECIMEN / Unknown 12/03/2021 2:25 PM CDT 12/03/2021 Narrative Resulting Agency Comment Lab Testing performed at: [address] ??[facility] [phone] Harmony Mcrae MD LAB - CHEMISTRY KYRIE BELTRAN [facility] INS[facility] BILL [address] [place] [address] Care Teams Transport Analyst Relationship Specialty Start Date End Date Radha Kaminski APRN-SCOTT [address] [facility] [address] [place] [address] PCP - General Nurse Practitioner Family 12/03/21 [place] [address] [place] [address] Rheumatology 12/03/21
--- OUTSIDE RECORDS SUMMARY | 2024-10-17 17:04 | XMS_ITS | Clinical Summary ---
Author Organization [facility] Address [address] [place] [address] Care Team Providers Care Assistant Chief Nursing Officer Name Role Phone Radha Kaminski MYRON-RETENTION REPRESENTATIVE Primary Care Provider [phone] Harmony Mcrae MD Unavailable Source Comments [facility],non-owned Affiliates and Associated Physician Practices is amultiple site organization consisting of ambulatory clinics and hospital sitesin [place], [place], [place] and [place]. This disclosure is being madepursuant to the Care Everywhere program and may not contain all information available regarding this patient. Last updated 18.[facility] Allergies Active Allergy Reactions Criticality Noted Date [...] fluticasone propionate (FLONASE) 50 MCG/ACT nasal spray [place] 2 (two) sprays into each nostril once daily Active blood glucose (CURA HealthcareT[employer]CH ULTRA) test strip USE TO TEST THREE TIMES A DAY 09/15/2021 Active estradiol (ESTRACE) 2 MG tablet Take 1 (one) tablet by mouth every 24 hours Active Multiple Vitamins-Minerals (MULTI VITAMIN/MINERALS) TABS Take 1 (one) tablet by mouth once daily Active [place]-3 Fatty Acids (FISH OIL) 1000 MG capsule Take 1 (one) capsule by mouth once daily Active Cholecalciferol 1.25 MG (76550 UT) Take 1 capsule by mouth every [...] naloxone HCl (Narcan) 4 MG/0.1ML nasal spray [place] 1 (one) spray into the nose Active [...] day by topical route. Active HYDROcodone-aceta minophen ([place]) 5-325 MG tablet Take 1 (one) tablet by mouth two times daily at 4am and 4pm Active indomethacin (Indocin) 50 MG capsule TAKE 1 CAPSULE BY MOUTH THREE TIMES A DAY ADMINISTER WITH FOOD OR MILK Active mupirocin (Bactroban) 2 % ointment 1 APPLIC TOPICALLY TWICE A DAY Active nystatin (Mycostatin) 062835 UNIT/ML suspension Take 5 mL 4 times [...] Comments Blood Pressure 122/68 10/06/2023 2:03 PM FLASH OVEN OPERATOR Pulse 79 10/06/2023 2:03 PM FLASH OVEN OPERATOR Temperature 36.6 ??C (97.9 ??F) 01/07/2022 2:03 PM CD T Respiratory Rate 16 08/02/2023 2:35 PM FLASH OVEN OPERATOR Oxygen Saturation 97% 08/02/2023 2:35 PM FLASH OVEN OPERATOR Inhaled Oxygen Concentration - - Weight 93.9 kg (207 lb) 10/06/2023 2:03 PM FLASH OVEN OPERATOR Height 170.2 cm (5' 7 ) 10/06/2023 2:03 PM FLASH OVEN OPERATOR Body Mass Index 32.42 10/06/2023 2:03 PM FLASH OVEN OPERATOR Plan of Treatment Health Maintenance Due Date [...] COMPREHENSIVE METABOLIC PANEL Routine 08/02/2023 3:29 PM FLASH OVEN OPERATOR Arthralgia, unspecified joint HEPATITIS SCREEN ACUTE ([facility]) Routine 08/02/2023 3:28 PM FLASH OVEN OPERATOR Arthralgia, unspecified joint from Last 3 Months or Most Recently Relevant to Health Maintenance Results * (ABNORMAL) COMPREHENSIVE METABOLIC PANEL (08/02/2023 3:29 PM FLASH OVEN OPERATOR) Glucose 95 70 - 99 mg/dL [facility] [...] BLOOD SPECIMEN / Unknown 08/02/2023 3:29 PM FLASH OVEN OPERATOR 08/02/2023 Narrative Resulting Agency Comment Lab Testing performed at: [address] ??[facility] [phone] Harmony Mcrae MD LAB - CHEMISTRY KYRIE BELTRAN [facility] INSURANCE BILL [address] [place] [address] * HEPATITIS SCREEN ACUTE ([facility]) (08/02/2023 3:28 PM FLASH OVEN OPERATOR) Hepatitis A Virus Antibody IgM Negative Negative [facility] INSURANCE BILL Hepatitis B Virus Surface Antigen Negative Negative [facility] INSURANCE BILL Hepatitis B Core Virus Antibody IgM Negative Negative [facility] INSURANCE BILL Hepatitis C Antibody Non Reactive Non Reactive [facility] INSURANCE BILL Blood BLOOD SPECIMEN / Unknown 08/02/2023 3:28 PM FLASH OVEN OPERATOR 08/02/2023 Narrative Resulting Agency Comment Lab Testing performed at: [facility] ??[facility] [phone] Harmony Mcrae MD LAB - CHEMISTRY KYRIE BELTRAN Performing Organization Address City/[facility]/ZIP Co de Phone Number [facility] INSURANCE BILL [address] [place] [address] from Last 3 Months or Most Recently Relevant to Health Maintenance Care Teams Assistant Chief Nursing Officer Relationship Specialty Start Date End Date Radha Kaminski APRN-SCOTT [address] [address] PCP - General Nurse Practitioner Family 12/03/21 [place] [address] [place] [address] [facility] 12/03/21
--- OUTSIDE RECORDS SUMMARY | 2024-10-17 17:04 | XMS_ITS | Patient Health Record ---
Author Organization [facility] [employer] Address [address] [facility] [address] [place] [address] Care Team Providers Care Manager Labor Relations Name Role Phone Raminedith Roland EVANS Primary Care Provider Unavail able Julian Cummings Unavailable [phone] Migration, Provider Unavailable Unavailable Allergies Allergen (clinical drug ingredient) Drug/Non Drug Allergy documented on EMR Reaction Allergy Type Onset Date Status Compazine Unknown Drug Allergy 12/21/2023 Active Results Component Value Reference Range Notes DRUG SCREEN, 14 DRUGS (DETEC TIMED), URINE Reviewed date:12/21/2023 12:00:00 AM Interpretation: Performing Lab: Notes/Report: Amphetamine negative Barbiturates negative Benzodiazipine negative Buprenorphine negative Cocaine negative MDMA/Ectasy negative Methadone negative Methamphetamine negative Morphine negative note ALL NEGATIVE Oxycodone negative Phenocyclidine negative THC negative DRUG SCREEN, 14 DRUGS (DETEC TIMED), URINE Reviewed date:12/26/2023 12:00:00 AM Interpretation: Performing Lab: Notes/Report: Reason For Referral No Information Medications Medication SIG (Take, Route, Frequency, Duration) Notes Start Date End Date Status Gabapentin 300 MG Oral 12/21/2023 A ctive Vraylar 3 mg 1 capsule Oral once daily for 90 days Active Trulicity 1.5 mg/0.5 mL Subcutaneous 12/21/2023 Active Methylphenidate HCl ER 36 MG 2 tablet every morning Oral once a day for 30 days fill 09/14/24 09/26/2024 Active Montelukast Sodium 10 MG Oral 12/21/2023 Active Rosuvastatin Calcium 40 MG Oral 12/21/2023 Active ICOSAPENT ETHYL 1 GRAM CAPSULE *Reorder from [facility] for eRx and Interaction Alerts* 12/21/2023 Active Magnesium Oxide (Elemental) 400 MG Oral *[facility] from [facility] for [facility] and Interaction Alerts* 12/21/2023 Active buPROPion HCl ER (XL) 150 MG Oral 12/21/2023 Active Estradiol 2 MG Oral 12/21/2023 Acti ve tiZANidine HCl 4 MG Oral 12/21/2023 Active OneTouch Ultra In Vitro 12/21/2023 Acti ve oxyCODONE HCl 5 MG Oral 12/21/2023 Active Glimepiride 2 MG Oral 12/21/2023 Ac tive Social History Sex Assigned At : Social History Observation Description Sex Assigned At Female Problems Problem Type SNOMED Code ICD Code Onset Dates Problem Status W/U Status Risk Notes Problem Bipolar affective disorder, currently depressed, moderate (622093545) Bipolar disorder, current episode depressed, moderate (F31.32) 12/21/19 24 Active confirmed Problem Attention deficit hyperactivity disorder, combined type (55732262) Attention-deficit hyperactivity disorder, combined type (F90.2) Active confirmed Vital Signs Heart Rate 98 /min 09/26/2024 Height-cm 170.18 cm 09/26/2024 Blood pressure diastolic 79 mm Hg 09/26/2024 Weight-kg 106.23 kg 09/26/2024 Height 67.00 in 09/26/2024 Blood pressure systolic 160 mm Hg 09/26/2024 Weight 234.2 lbs 09/26/2024 BMI 36.68 kg/m2 09/26/2024 Encounters Encounter Location Date Provider Diagnosis [email or web address] [address] [place] [address] [place] [address] 12/21/2023 Julian Cummings Attention-deficit hyperactivity disorder, combined type F90.2 and Bipolar disorder, current episode depressed, moderate F31.32 [email or web address] [address] [place] [address] [place] [address] 03/27/2024 Julian Katza Attention-deficit hyperactivity disorder, combined type F90.2 and Bipolar disorder, current episode depressed, moderate F31.32 [email or web address] [address] [place] [address] [place] [address] 06/27/2024 Julian Katza Attention-deficit hyperactivity disorder, combined type F90.2 and Bipolar disorder, current episode depressed, moderate F31.32 [facility], [facility] [address] [address] [place] [address] 09/26/2024 Julian Cummings Attention-deficit hyperactivity disorder, combined type F90.2 and Bipolar disorder, current episode depressed, moderate F31.32 [facility], [facility] [address] [address] [place] [address] 12/02/2023 Provider Migration [facility], [facility] [address] [place] [address] [place] [address] 12/21/2023 Provider [facility], [facility] [address] [place] [address] [place] [address] 12/23/2023 Provider Migration [facility], [facility] [address] [address] [place] [address] 01/19/2024 Provider [facility], [facility] [address] [place] [address] [place] [address] 01/24/2024 Provider Migration [facility], [facility] [address] [place] [address] [place] [address] 01/27/2024 Provider [facility], [facility] [address] [place] [address] [place] [address] 02/04/2024 Provider Migration [facility], [facility] [address] [address] [place] [address] 02/05/2024 Provider [facility], [facility] [address] [place] [address] [place] [address] 03/05/2024 Julian Cummings [facility], [facility] [address] [place] [address] [place] [address] 03/08/2024 Julian Cummings [facility], [facility] [address] [place] [address] [place] [address] 03/13/2024 Julian Cummings Attention-deficit hyperactivity disorder, combined type F90.2 [facility], [facility] [address] [address] [place] [address] 06/13/2024 Julian Cummings Attention-deficit hyperactivity disorder, combined type F90.2 [facility], [facility] [address] [place] [address] [place] [address] 06/27/2024 Julian Cummings [facility], [facility] [address] [place] [address] [place] [address] 08/28/2024 Julian Cummings Attention-deficit hyperactivity disorder, combined type F90.2 [facility] [address] [facility] [address] [place] [address] 09/03/2024 Julian Cummings [facility] [address] [facility] [address] [place] [address] 06/13/2024 Julian Cummings Attention-deficit hyperactivity disorder, combined type F90.2 Assessments Encounter Date Diagnosis (ICD Code) Assessment Notes Treatment Notes Treatment Clinical Notes Section Notes 03/13/2024 Attention-deficit hyperactivity disorder, combined type (ICD-10 - F90.2) 08/28/2024 Attention-deficit hyperactivity disorder, combined type (ICD-10 - F90.2) 03/27/2024 Attention-deficit hyperactivity disorder, combined type (ICD-10 - F90.2) 1. ADHD (Attention Deficit Hyperactivity Disorder) - Patient has been without methylphenidate for a month and recently resumed taking it. Plan: a. Continue methylphenidate as prescribed. b. Sent prescription refills for methylphenidate to [facility]. c. Monitor patient's response to medication and adjust dosage if necessary. 2. Bipolar Disorder - Patient is currently on Vraylar and reports mood stability when taking it consistently. Plan: a. Continue Vraylar as prescribed. b. Sent prescription for Vraylar to the pharmacy. c. Provided patient with a copay card and patient assistance application for Vraylar to help with the cost. d. Encourage patient to apply for the patient assistance program through the Vraylar website. e. Monitor patient's mood stability and adjust medication if necessary. 3. Medication adherence - Patient reports difficulty remembering to take medications when not using a weekly pill organizer. Plan: a. Encourage the use of a weekly pill organizer to improve medication adherence. b. Monitor patient's adherence to medications during follow-up visits. 4. Communication with the clinic - Patient expressed frustration with communication and past experiences with the clinic. Plan: a. Address patient's concerns and ensure they feel heard and supported. b. Encourage the use of the patient portal for communication and appointment scheduling. c. Monitor patient's satisfaction with the clinic and address any issues that may arise. Follow-up: - Schedule a follow-up appointment in 3 months to assess the patient's response to medications and overall mental health status. 06/13/2024 Attention-deficit hyperactivity disorder, combined type (ICD-10 - F90.2) 06/13/2024 Attention-deficit hyperactivity disorder, combined type (ICD-10 - F90.2) 06/27/2024 Attention-deficit hyperactivity disorder, combined type (ICD-10 - F90.2) 1. Major Depressive Disorder: - Patient reports feeling crappy and spending the last week in bed due to lack of motivation and energy. - Patient has been off methylphenidate, which may have contributed to the worsening of depressive symptoms. Plan: - Encourage the patient to resume taking Vraylar as prescribed. - Monitor the patient's mood and depressive symptoms during follow-up visits. 2. Attention Deficit Hyperactivity Disorder (ADHD): - Patient has been out of methylphenidate, leading to a disruption in their daily routine and medication adherence. Plan: - Sent three prescriptions for methylphenidate 72 mg to the patient's pharmacy with refill dates of 07-20, 08-17, and 09-14. - Instruct the patient to notify the provider if there are any issues with the prescriptions or refills. 3. Medication adherence: - Patient reports not taking Vraylar, estrogen, heart medications, and other prescribed medications when not on methylphenidate. Plan: - Reinforce the importance of medication adherence for overall health and well-being. - Encourage the patient to establish a routine for taking medications, especially when on methylphenidate. 09/26/2024 Attention-deficit hyperactivity disorder, combined type (ICD-10 - F90.2) 1. Depression: - Patient reports feeling more depressed over the last 6 months. - Currently on Cymbalta 30 mg twice daily and Vraylar 3 mg. - Computer Meteorologist does not want to increase Vraylar due [...] to bupropion and adjust dosage if necessary. 12/21/2023 Bipolar disorder, current episode depressed, moderate (ICD-10 - F31.32) 12/21/2023 Attention-deficit hyperactivity disorder, combined type (ICD-10 - F90.2) 06/27/2024 Bipolar disorder, current episode depressed, moderate (ICD-10 - F31.32) 1. Major Depressive Disorder: - Patient reports feeling crappy and spending the last week in bed due to lack of motivation and energy. - Patient has been off methylphenidate, which may have contributed to the worsening of depressive symptoms. Plan: - Encourage the patient to resume taking Vraylar as prescribed. - Monitor the patient's mood and depressive symptoms during follow-up visits. 2. Attention Deficit Hyperactivity Disorder (ADHD): - Patient has been out of methylphenidate, leading to a disruption in their daily routine and medication adherence. Plan: - Sent three prescriptions for methylphenidate 72 mg to the patient's pharmacy with refill dates of 07-20, 08-17, and 09-14. - Instruct the patient to notify the provider if there are any issues with the prescriptions or refills. 3. Medication adherence: - Patient reports not taking Vraylar, estrogen, heart medications, and other prescribed medications when not on methylphenidate. Plan: - Reinforce the importance of medication adherence for overall health and well-being. - Encourage the patient to establish a routine for taking medications, especially when on methylphenidate. 09/26/2024 Bipolar disorder, current episode depressed, moderate (ICD-10 - F31.32) 1. Depression: - Patient reports feeling more depressed over the last 6 months. - Currently on Cymbalta 30 mg twice daily and Vraylar 3 mg. - Computer Meteorologist does not want to increase Vraylar due [...] to bupropion and adjust dosage if necessary. 03/27/2024 Bipolar disorder, current episode depressed, moderate (ICD-10 - F31.32) 1. ADHD (Attention Deficit Hyperactivity Disorder) - Patient has been without methylphenidate for a month and recently resumed taking it. Plan: a. Continue methylphenidate as prescribed. b. Sent prescription refills for methylphenidate to [facility]. c. Monitor patient's response to medication and adjust dosage if necessary. 2. Bipolar Disorder - Patient is currently on Vraylar and reports mood stability when taking it consistently. Plan: a. Continue Vraylar as prescribed. b. Sent prescription for Vraylar to the pharmacy. c. Provided patient with a copay card and patient assistance application for Vraylar to help with the cost. d. Encourage patient to apply for the patient assistance program through the Vraylar website. e. Monitor patient's mood stability and adjust medication if necessary. 3. Medication adherence - Patient reports difficulty remembering to take medications when not using a weekly pill organizer. Plan: a. Encourage the use of a weekly pill organizer to improve medication adherence. b. Monitor patient's adherence to medications during follow-up visits. 4. Communication with the clinic - Patient expressed frustration with communication and past experiences with the clinic. Plan: a. Address patient's concerns and ensure they feel heard and supported. b. Encourage the use of the patient portal for communication and appointment scheduling. c. Monitor patient's satisfaction with the clinic and address any issues that may arise. Follow-up: - Schedule a follow-up appointment in 3 months to assess the patient's response to medications and overall mental health status. Plan Of Treatment Next Appt Details Provider Name:Julian shaw, 11/22/2024 01:15:00 PM, [address] [facility] [address], [facility] [address], [place], [address], Insurance Providers Payer Name Payer Address Payer Phone Subscriber Number Group Number Insured Name Patient Relationship to Insured Coverage Start Date Coverage End Date Juanna [address] [place] [address] [id number] IZABELA PARRA Self - patient is the insured Medical (General) History Medical History History ICD Code Problems: Attention deficit hyperactivit y disorder, combined type Bipolar affective disorder, current epis ode depression , Surgical History Surgery Date(Month/Year) Other 09/19/1998 Hysterectomy (92047) 09/19/1999 Removal of gallbladder (59618) 1 Any surgical history 09/19/2009 Appendectomy (14170) 09/20/1993
--- OUTSIDE RECORDS SUMMARY | 2024-10-17 17:04 | XMS_ITS | Encounter Summary ---
Author Organization [facility] Address [address] [place] [address] Care Team Providers Care Hydrator Operator Name Role Phone Radha Kaminski MYRON-SURVEY RESEARCH ASSOCIATE Primary Care Provider [phone] Harmony Mcrae MD Unavailable Encounter Details Date Type Department Care Team (Late st Contact Info) Description 06/20/2023 Lab Requisition [facility] - DermPath Lab [address] [facility] [place] [address] Andrzej Aguilar MD [address] [place] [address] Social History Tobacco Use Types [...] CDT) Case Report Dermatopathology Report ? Case: [id number] ? Authorizing Provider: ??Andrzej Aguilar MD ?Collected: ? 06/20/2023 12:00 AM ? [facility] ? Received: ?06/21/2023 06:10 [...] characteristic determined by the Dermatopathology Laboratory at [facility], directed by Dr. Jean-Pierre Miller. These tests need not be, and therefore are not, approved by the [place] Food and Drug Administration. The tests are used for clinical purposes. Billing Codes Specimen Charges Stain Charges 04997 1 83500 1 3 4:35 PM CDT DERMATOPATHOLOGY LABORATORY Embedded Images 3 4:35 PM CDT DERMATOPATHOLOGY LABORATORY Pathology/Cytolog y TISSUE SPECIMEN FROM SKIN / Unknown 06/20/2023 06/21/2023 6:10 AM CDT Andrzej Aguilar MD LAB - PATHOLOGY/CYTO LOGY ORDERABLES DERMATOPATHOLOGY LABORATORY [facility] - Department of Dermatology [facility] [address] [place] [address], [address] [phone] documented in this encounter Visit Diagnoses Not on filedocumented in this encounter Care Teams Hydrator Operator Relationship Specialty Start Date End Date Radha Kaminski APRN-SCOTT [address] [address] PCP - General Nurse Practitioner Family 12/03/21 [place] [address] [place] [address] Rheumatology 12/03/21 documented as of this encounter
--- OUTSIDE RECORDS SUMMARY | 2024-10-17 17:04 | XMS_ITS | Referral Summary ---
Author Organization [facility] Address [address] [facility] [place] [address] Care Team Providers Care Stars Analytical Lead Name Role Phone Radha Kaminski MYRON-CUSTOMER ENGINEER Primary Care Provider [phone] Harmony Mcrae MD Unavailable Source Comments [facility],non-sac-osage hospital Affiliates and Associated Physician Practices is amultiple site organization consisting of ambulatory clinics and hospital sitesin [place], [place], [place] and [place]. This disclosure is being madepursuant to the Care Everywhere program and may not contain all information available regarding this patient. Last updated 18.[facility] Allergies Active Allergy Reactions Criticality Noted [...] fluticasone propionate (FLONASE) 50 MCG/ACT nasal spray [place] 2 (two) sprays into each nostril once daily Active blood glucose (Umbie HealthTOUCH ULTRA) test strip USE TO TEST THREE TIMES A DAY 09/15/2021 Active estradiol (ESTRACE) 2 MG tablet Take 1 (one) tablet by mouth every 24 hours Active Multiple Vitamins-Minerals (MULTI VITAMIN/MINERALS) TABS Take 1 (one) tablet by mouth once daily Active [place]-3 Fatty Acids (FISH OIL) 1000 MG capsule Take 1 (one) capsule by mouth once daily Active Cholecalciferol 1.25 MG (51605 UT) Take 1 capsule by mouth every [...] naloxone HCl (Narcan) 4 MG/0.1ML nasal spray [place] 1 (one) spray into the nose Active [...] day by topical route. Active HYDROcodone-aceta minophen ([place]) 5-325 MG tablet Take 1 (one) tablet by mouth two times daily at 4am and 4pm Active indomethacin (Indocin) 50 MG capsule TAKE 1 CAPSULE BY MOUTH THREE TIMES A DAY ADMINISTER WITH FOOD OR MILK Active mupirocin (Bactroban) 2 % ointment 1 APPLIC TOPICALLY TWICE A DAY Active nystatin (Mycostatin) 882810 UNIT/ML suspension Take 5 mL 4 times [...] Comments Blood Pressure 122/68 10/06/2023 2:03 PM CHEESE TESTER Pulse 79 10/06/2023 2:03 PM CHEESE TESTER Temperature 36.6 ??C (97.9 ??F) 01/07/2022 2:03 PM CD T Respiratory Rate 16 08/02/2023 2:35 PM CHEESE TESTER Oxygen Saturation 97% 08/02/2023 2:35 PM CHEESE TESTER Inhaled Oxygen Concentration - - Weight 93.9 kg (207 lb) 10/06/2023 2:03 PM CHEESE TESTER Height 170.2 cm (5' 7 ) 10/06/2023 2:03 PM CHEESE TESTER Body Mass Index 32.42 10/06/2023 2:03 PM CHEESE TESTER Plan of Treatment Not on file Procedures Procedure Name Priority Date/Time Associated Diagnosis Comments COMPREHENSIVE METABOLIC PANEL Routine 08/02/2023 3:29 PM CHEESE TESTER Arthralgia, unspecified joint HEPATITIS SCREEN ACUTE ([facility]) Routine 08/02/2023 3:28 PM CHEESE TESTER Arthralgia, unspecified joint from Last 3 Months or Most Recently Relevant to Health Maintenance Results * (ABNORMAL) COMPREHENSIVE METABOLIC PANEL (08/02/2023 3:29 PM CHEESE TESTER) Glucose 95 70 - 99 mg/dL [facility] [...] BLOOD SPECIMEN / Unknown 08/02/2023 3:29 PM CHEESE TESTER 08/02/2023 Narrative Resulting Agency Comment Lab Testing performed at: [facility] [address] ??[facility] [phone] Harmony Mcrae MD LAB - CHEMISTRY KYRIE BELTRAN [facility] INSURANCE BILL [address] [place] [address] * HEPATITIS SCREEN ACUTE ([facility]) (08/02/2023 3:28 PM CHEESE TESTER) Hepatitis A Virus Antibody IgM Negative Negative [facility] INSURANCE BILL Hepatitis B Virus Surface Antigen Negative Negative [facility] INSURANCE BILL Hepatitis B Core Virus Antibody IgM Negative Negative [facility] INSURANCE BILL Hepatitis C Antibody Non Reactive Non Reactive [facility] INSURANCE BILL Blood BLOOD SPECIMEN / Unknown 08/02/2023 3:28 PM CHEESE TESTER 08/02/2023 Narrative Resulting Agency Comment Lab Testing performed at: [facility] [address] ??[facility] [id number] Harmony Mcrae MD LAB - CHEMISTRY KYRIE BELTRAN [facility] INSURANCE BILL [address] [place] [address] from Last 3 Months or Most Recently Relevant to Health Maintenance Care Teams Stars Analytical Lead Relationship Specialty Start Date End Date Radha Kaminski APRN-CUSTOMER ENGINEER [address] [address] PCP - General Nurse Practitioner Family 12/03/21 [place] [address] [place] [address] [place] [address] Rheumatology 12/03/21
--- OUTSIDE RECORDS SUMMARY | 2024-10-17 17:04 | XMS_ITS | Clinical Summary ---
Author Organization [facility] [employer] Address [address] [place] [address] Care Team Providers Care Rn Social Work Name Role Phone Roland Rojas DO Primary [...] region 05/17/2023 Coronary artery disease invo lving [place] coronary artery of [place] heart without angina pectoris 04/19/2023 Essential hypertension [...] (01/24/2024): Added automatically from request for surgery [id number] Nonspecific abnormal results of function study o [...] Department Care Team Description 08/23/2024 2:00 PM POLL CLERK Office Visit [facility] Medical [facility] Cardiology at [address] [place] [address] Rhett Ramírez MD Nonrheumatic aortic valve insufficiency (Primary Dx); Bilateral carotid artery stenosis; Coronary artery disease involving [place] coronary artery of [place] heart without angina pectoris; Hypertension associated with [...] on file Legal Sex Female 7:45 PM POLL CLERK Gender Identity Not on file Sexual Orientation Not on file Obstetrics History Last Filed Vital Signs Vital Sign Reading Time Taken Comments Blood Pressure 118/82 08/23/2024 2:00 PM POLL CLERK Pulse 82 08/23/2024 2:00 PM POLL CLERK Temperature 36.5 ??C (97.7 ??F) 02/18/2022 2:55 PM CD T Respiratory Rate 17 05/17/2023 1:17 PM CDT Oxygen Saturation 99% 08/23/2024 2:00 PM POLL CLERK Inhaled Oxygen Concentration - - Weight 107 kg (236 lb) 08/23/2024 2:00 PM POLL CLERK Height 170.2 cm (5' 7 ) 08/23/2024 2:00 PM POLL CLERK Body Mass Index 36.96 08/23/2024 2:00 PM POLL CLERK Plan of Treatment Health Maintenance Due Date [...] Comments ELECTROCARDIOGRAM REPORT Routine 024 4:02 PM POLL CLERK Nonrheumatic aortic valve insufficiency POCT LIPID PANEL Routine 08/23/2024 2:54 PM POLL CLERK Coronary artery disease involving [place] coronary artery of [place] heart without angina pectoris Hyperlipidemia associated with type 2 diabetes mellitus (HCC) EGFR STAT 02/18/2022 1:07 PM CDT from Last 3 Months or Most Recently Relevant to Health Maintenance Results * Electrocardiogram Report (08/23/2024 4:02 PM POLL CLERK) Rhett Ramírez MD ECG ORDERABLES Final Res ult * POCT lipid panel (08/23/2024 2:54 PM POLL CLERK) Cholesterol, POC 234 mg/dL HDL, POC 48 mg/dL Triglycerides, POC 305 mg/dL LDL Cholesterol POC 125 mg/dL Chol/HDL Ratio, POC 4.9 Non-HDL Cholesterol, POC 186 mg/dL Cholesterol Total, POC 234 mg/dL Capillary blood 08/23/2024 2 :54 PM POLL CLERK Rhett Ramírez MD POINT OF CARE TEST [...] LAB BLOOD ORDERABLES Final Re sult [facility] [address] [facility] [place] [address] from Last 3 Months or Most Recently Relevant to Health Maintenance Insurance [employer] OPEN ACCESS CIGNA OPEN ACCESS CIGNA OPEN ACCESS CIGNA OPEN ACCESS Care Teams Rn Social Work Relationship Specialty Start Date End Date Roland Rojas DO [address] [place] [address] PCP - General Family Medicine 01/24/24
--- OUTSIDE RECORDS SUMMARY | 2024-10-17 17:04 | XMS_ITS | Referral Summary ---
Author Organization [facility] [employer] Address [address] [place] [address] Care Team Providers Care Production Technologist Name Role Phone Roland Rojas DO Primary Care Provider Encounters Date Type Department Care Team Description 08/23/2024 2:00 PM RECREATION ESTABLISHMENT MANAGER Office Visit [facility] Medical Group Cardiology at [address] [place] [phone] Rhett Ramírez MD Nonrheumatic aortic valve insufficiency (Primary Dx); Bilateral carotid artery stenosis; Coronary artery disease involving [place] coronary artery of [place] heart without angina pectoris; Hypertension associated with [...] region 05/17/2023 Coronary artery disease invo lving [place] coronary artery of [place] heart without angina pectoris 04/19/2023 Essential hypertension [...] (01/24/2024): Added automatically from request for surgery [id number] Nonspecific abnormal results of function study o [...] on file Legal Sex Female 7:45 PM RECREATION ESTABLISHMENT MANAGER Gender Identity Not on file Sexual Orientation Not on file Last Filed Vital Signs Vital Sign Reading Time Taken Comments Blood Pressure 118/82 08/23/2024 2:00 PM RECREATION ESTABLISHMENT MANAGER Pulse 82 08/23/2024 2:00 PM RECREATION ESTABLISHMENT MANAGER Temperature 36.5 ??C (97.7 ??F) 02/18/2022 2:55 PM CD T Respiratory Rate 17 05/17/2023 1:17 PM CDT Oxygen Saturation 99% 08/23/2024 2:00 PM RECREATION ESTABLISHMENT MANAGER Inhaled Oxygen Concentration - - Weight 107 kg (236 lb) 08/23/2024 2:00 PM RECREATION ESTABLISHMENT MANAGER Height 170.2 cm (5' 7 ) 08/23/2024 2:00 PM RECREATION ESTABLISHMENT MANAGER Body Mass Index 36.96 08/23/2024 2:00 PM RECREATION ESTABLISHMENT MANAGER Plan of Treatment Not on file Procedures Procedure Name Priority Date/Time Associated Diagnosis Comments ELECTROCARDIOGRAM REPORT Routine 4:02 PM RECREATION ESTABLISHMENT MANAGER Nonrheumatic aortic valve insufficiency POCT LIPID PANEL Routine 08/23/2024 2:54 PM RECREATION ESTABLISHMENT MANAGER Coronary artery disease involving [place] coronary artery of [place] heart without angina pectoris Hyperlipidemia associated with type 2 diabetes mellitus (HCC) EGFR STAT 02/18/2022 1:07 PM CDT from Last 3 Months or Most Recently Relevant to Health Maintenance Results * Electrocardiogram Report (08/23/2024 4:02 PM RECREATION ESTABLISHMENT MANAGER) us Rhett Ramírez MD ECG ORDERABLES Final Res ult * POCT lipid panel (08/23/2024 2:54 PM RECREATION ESTABLISHMENT MANAGER) Cholesterol, POC 234 mg/dL HDL, POC 48 mg/dL Triglycerides, POC 305 mg/dL LDL Cholesterol POC 125 mg/dL Chol/HDL Ratio, POC 4.9 Non-HDL Cholesterol, POC 186 mg/dL Cholesterol Total, POC 234 mg/dL Capillary blood 08/23/2024 2 :54 PM RECREATION ESTABLISHMENT MANAGER us Rhett Ramírez MD POINT OF CARE [...] Re sult [facility] [address] [facility] Department [place] [address] from Last 3 Months or Most Recently Relevant to Health Maintenance Insurance [id number] OPEN ACCESS CIGNA OPEN ACCESS [facility] OPEN ACCESS Care Teams Production Technologist Relationship Specialty Start Date End Date Roland Rojas DO [address] [place] [address] PCP - General Family Medicine 01/24/24
== END 2024-10-17 17:18 | disposition home or self-care (01) ==
PROVIDERS: Emergency Provider Internal Medicine Critical Care Medicine; PCP Family Medicine
DX: G56.01 Carpal tunnel syndrome, right upper limb (principal); M18.11 Unilateral primary osteoarthritis of first carpometacarpal joint, right hand; M79.641 Pain in right hand; M79.7 Fibromyalgia; M06.9 Rheumatoid arthritis, unspecified; E11.9 Type 2 diabetes mellitus without complications; E78.5 Hyperlipidemia, unspecified; F41.9 Anxiety disorder, unspecified; F31.9 Bipolar disorder, unspecified; Z79.84 Long term (current) use of oral hypoglycemic drugs; Z79.85 Long-term (current) use of injectable non-insulin antidiabetic drugs
CPT/HCPCS: 73130; 96372; 99283; J1885

== ENCOUNTER 2025-02-12 10:50 | Outpatient (CLI) | payer OTHER, MEDICAID, SELFPAY ==
--- NOTE | ~2025-02-12 | XR_ITS ---
Lumbosacral Spine: AP and lateral views Clinical History: Pain COMPARISON: 12/26/2023 Findings: Stable posterior and interbody fusion from L4 through S1. Moderate facet arthropathy upper lumbar spine is present. Neurostimulator device is unchanged. The sacroiliac joints are normally outl ined. Impression: Stable fusion from L4 through S1. Stable degenerative change. Reviewed, dictated and finalized at location . Impression: Stable fusion from L4 through S1. Stable degenerative change.
--- NOTE | ~2025-02-12 | XR_ITS ---
Cervical Spine: AP, lateral, open-mouth views Clinical History: Pain COMPARISON: 12/26/2023 Findings: There is mild reversal normal cervical lordosis. There is anterior fusion from C5 to C7. Th ere is severe degenerative disc narrowing at C4-C5. There is moderate facet arthropathy throughout ce rvical spine.. Pre-vertebral soft tissues are unremarkable. Impression: Stable anterior fusion from C5 to C7. Stable degenerative spondylosis and mild reversal of the normal cervical lordosis. Reviewed, dictated and finalized at [facility]. Impression: Stable anterior fusion from C5 to C7. Stable degenerative spondylosis and mild reversal of the normal cervical lordos is.
--- OUTSIDE RECORDS SUMMARY | 2025-02-12 10:57 | XMS_ITS | Patient Health Record ---
Author Organization [facility] Address [address] [facility] [address] [place] [address] Care Team Providers Care German Professor Name Role Phone Roland Rojas DO Primary Care Provider Unavail able Julian Cummings Unavailable [phone] Allergies Allergen (clinical drug ingredient) Drug/Non Drug Allergy documented on EMR Reaction Allergy Type Onset Date Status Compazine Unknown Drug Allergy 12/21/2023 Active Reason For Referral No Information Medications Medication SIG (Take, Route, Frequency, Duration) Notes Start Date End Date Status buPROPion HCl ER (XL) 150 MG 1 tablet in the morning Oral Once a day for 90 days Active Rosuvastatin Calcium 40 MG Oral 12/21/2023 Active Methylphenidate HCl ER 36 MG 2 tablet every morning Oral once a day for 30 days fill 09/14/24 01/07/2025 Active Montelukast Sodium 10 MG Oral 12/21/2023 Active Vraylar 1.5 MG 1 capsule Oral once daily for 30 days Active OneTouch Ultra In Vitro 12/21/2023 Acti ve Estradiol 2 MG Oral 12/21/2023 Acti ve Glimepiride 2 MG Oral 12/21/2023 Ac tive oxyCODONE HCl 5 MG Oral 12/21/2023 Active Gabapentin 300 MG Oral 12/21/2023 A ctive Caplyta 21 MG 1 capsule Orally Once a day for 30 days Active ICOSAPENT ETHYL 1 GRAM CAPSULE *Reorder from [employer] for eRx and Interaction Alerts* 12/21/2023 Active Mounjaro 5 MG/0.5ML Subcutaneous for 28 Days Active tiZANidine HCl 4 MG Oral 12/21/2023 Active Magnesium Oxide (Elemental) 400 MG Oral *Reorder from [employer] for eRx and Interaction Alerts* 12/21/2023 Active Social History Sex Assigned At : Social History Observation Description Sex Assigned At Female Problems Problem Type SNOMED Code ICD Code Onset Dates Problem Status W/U Status Risk Notes Problem Bipolar affective disorder, currently depressed, moderate (278490476) Bipolar disorder, current episode depressed, moderate (F31.32) 12/21/19 Active confirmed Problem Attention deficit hyperactivity disorder, combined type (26629665) Attention-deficit hyperactivity disorder, combined type (F90.2) Active confirmed Vital Signs Heart Rate 93 /min 01/07/2025 Height-cm 170.18 cm 01/07/2025 Blood pressure diastolic 85 mm Hg 01/07/2025 Weight-kg 102.51 kg 01/07/2025 Height 67.00 in 01/07/2025 Blood pressure systolic 139 mm Hg 01/07/2025 Weight 226 lbs 01/07/2025 BMI 35.39 kg/m2 01/07/2025 Encounters Encounter Location Date Provider Diagnosis [id number] [address] [address] 03/27/2024 Julian Cummings Attention-deficit hyperactivity disorder, combined type F90.2 and Bipolar disorder, current episode depressed, moderate F31.32 [employer] [facility] [address] [address] 06/27/2024 Julian Cummings Attention-deficit hyperactivity disorder, combined type F90.2 and Bipolar disorder, current episode depressed, moderate F31.32 [employer] [facility] [address] [facility] [address] [place] [address] 09/26/2024 Julian Cummings Attention-deficit hyperactivity disorder, combined type F90.2 and Bipolar disorder, current episode depressed, moderate F31.32 [employer] [facility] [address] [address] 12/06/2024 Julian Jonesoza Encounter for screen ing for cardiovascular disorders Z13.6 ; Encounter for screening for depression Z13.31 ; Attention-deficit hyperactivity disorder, combined type F90.2 and Bipolar disorder, current episode depressed, moderate F31.32 [employer] [facility] [address] [address] 01/07/2025 Julian Katza Encounter for screen ing for cardiovascular disorders Z13.6 ; Encounter for screening for depression Z13.31 ; Attention-deficit hyperactivity disorder, combined type F90.2 and Bipolar disorder, current episode depressed, moderate F31.32 [facility], [facility] [address] [place] [address] 03/05/2024 Julian Katza [facility], [facility] [address] [place] [address] 03/08/2024 Julian Jonesoza [facility], [facility] [address] [place] [address] 03/13/2024 Julian Cummings Attention-deficit hyperactivity disorder, combined type F90.2 [facility], [facility] [address] [place] [address] 06/13/2024 Julian Cummings Attention-deficit hyperactivity disorder, combined type F90.2 [facility], [facility] [address] [place] [address] 06/27/2024 Julian Cummings [facility], [facility] [address] [place] [address] 08/28/2024 Julian Cummings Attention-deficit hyperactivity disorder, combined type F90.2 [facility], [facility] [address] [place] [address] 09/03/2024 Julian Jonesoza [facility], [facility] [address] [place] [address] 10/31/2024 Julian Jonesoza [facility], [facility] [address] [place] [address] 01/07/2025 Julian Jonesoza [facility], [facility] [address] [facility] [address] [place] [address] 01/21/2025 Julian Jonesoza [facility], [facility] [address] [place] [address] 06/13/2024 Julian Cummings Attention-deficit hyperactivity disorder, combined type F90.2 [facility], [facility] [address] [place] [address] 10/31/2024 Julian Cummings Attention-deficit hyperactivity disorder, combined type F90.2 [facility] [address] [facility] [address] [place] [address] 10/31/2024 Julian Cummings Attention-deficit hyperactivity disorder, combined type F90.2 Assessments Encounter Date Diagnosis (ICD Code) Assessment Notes Treatment Notes Treatment Clinical Notes Section Notes 03/13/2024 Attention-defici t hyperactivity disorder, combined type (ICD-10 - F90.2) 08/28/2024 Attention-defici t hyperactivity disorder, combined type (ICD-10 - F90.2) 01/07/2025 Encounter for screening for cardiovascular disorders (ICD-10 - Z13.6) 06/27/2024 Attention-defici t hyperactivity disorder, combined type (ICD-10 - F90.2) [...] for taking medications, especially when on methylphenidate. 03/27/2024 Attention-defici t hyperactivity disorder, combined type (ICD-10 - F90.2) [...] medications and overall mental health status. 06/13/2024 Attention-defici t hyperactivity disorder, combined type (ICD-10 - F90.2) 06/13/2024 Attention-defici t hyperactivity disorder, combined type (ICD-10 - F90.2) 09/26/2024 Attention-defici t hyperactivity disorder, combined type (ICD-10 - F90.2) 1. Depression: - Patient reports feeling more depressed over the last 6 months. - Currently on Cymbalta 30 mg twice daily and Vraylar 3 mg. - Electrostatic Paint Operator does not want to increase Vraylar due [...] persists. 3. ADHD: - Patient reports Concerta (Methylphenidate ) is working well for ADHD. - Prescription was filled on 08/23 and again on 09/03, but patient did not receive the latter. Plan: - Monitor patient's response to Concerta and adjust dosage if necessary. 4. Bupropion: - Patient confirms they are still taking bupropion. Plan: - Continue current medication. - Monitor patient's response to bupropion and adjust dosage if necessary. 10/31/2024 Attention-defici t hyperactivity disorder, combined type (ICD-10 - F90.2) 10/31/2024 Attention-defici t hyperactivity disorder, combined type (ICD-10 - F90.2) 12/06/2024 Encounter for screening for cardiovascular disorders (ICD-10 - Z13.6) 12/06/2024 Encounter for screening for depression (ICD-10 - Z13.31) 06/27/2024 Bipolar disorder, current episode depressed, moderate [...] twice daily and Vraylar 3 mg. - Electrostatic Paint Operator does not want to increase Vraylar due [...] persists. 3. ADHD: - Patient reports Concerta (Methylphenidate ) is working well for ADHD. - Prescription [...] to medications and overall mental health status. 01/07/2025 Encounter for screening for depression (ICD-10 - Z13.31) 12/06/2024 Attention-defici t hyperactivity disorder, combined type (ICD-10 - F90.2) 01/07/2025 Attention-defici t hyperactivity disorder, combined type (ICD-10 - F90.2) 01/07/2025 Bipolar disorder, current episode depressed, moderate (ICD-10 - F31.32) Electronic Prior Authorization was requested for Caplyta 21 MG Capsule. Provider can order medication once approval received. 12/06/2024 Bipolar disorder, current episode depressed, moderate (ICD-10 - F31.32) Electronic Prior Authorization was requested for Caplyta 21 MG Capsule. Provider can order medication once approval received. 12/06/2024 Anitra Parra presents with worsening depressive symptoms for at least one month, including lack of motivation, anhedonia, and increased effort required for daily activities. Bipolar Depression Assessment: Patient reports feeling more depressed without any external triggers. Symptoms include difficulty getting out of bed, lack of interest in usually enjoyable activities (e.g., upcoming quilt retreat), and increased effort required for daily functioning. These symptoms have been present for at least one month but less than 2-3 months. Current medications include Vraylar 3 mg, methylphenidate 72 mg, and bupropion 150 mg. Patient denies medication non-adherence. Plan: - Discontinue Vraylar: Taper to 1.5 mg for 1 week, then stop - Start Caplyta (lumateperone): - Week 1: 10.5 mg daily - Week 2 and onwards: Increase to 21 mg daily - Continue bupropion 150 mg daily - Continue methylphenidate 72 mg daily - Informed consent: Discussed potential side effects of Caplyta, including minimal weight gain (average 1-2 pounds over 6 months in clinical trials) - Follow up to assess response to medication changes the note is transcribed using speech recognition software. It is a reflection of a visit with the patient. It might have some inaccuracy, including medication names and transcribing errors, though efforts have been made to correct them. 01/07/2025 Other Medication Management Assessment: Patient is currently taking Vraylar for Bipolar disorder and methylphenidate ER for ADHD. A change to Caplyta was previously discussed, but insurance approval is pending. The patient has not made any medication changes since the last visit due to insurance issues. There is a history of medication non-adherence when the patient feels unheard, which is a potential risk factor for treatment efficacy. Plan: - Submit prior authorization (PA) for Caplyta to insurance - Continue Vraylar at current dose pending [place] approval for Caplyta - Continue methylphenidate ER 72 mg PO daily (2 tablets of 36 mg) - Follow up in approximately 6 weeks to reassess medication efficacy and status of Caplyta approval - Educated patient on importance of not discontinuing psychiatric medications abruptly due to risk of withdrawal effects the note is transcribed using speech recognition software. It is a reflection of a visit with the patient. It might have some inaccuracy, including medication names and transcribing errors, though efforts have been made to correct them. Plan Of Treatment Next Appt Details Provider Name:Julian shaw, 02/19/2025 02:00:00 PM, [address], [address], [place], [address], Insurance Providers Payer Name Payer Address Payer Phone Subscriber Number Group Number Insured Name Patient Relationship to Insured Coverage Start Date Coverage End Date [employer] [address] [place] [address] [id number] IZABELA PARRA Self - patient is the insured [place] Medicaid [address] [address] [place] [address] [id number] IZABELA PARRA Self - patient is the insured Medical (General) History Medical History History ICD Code Problems: Attention deficit hyperactivit y disorder, combined type Bipolar affective disorder, current epis ode depression , Surgical History Surgery Date(Month/Year) Other 09/19/1998 Hysterectomy (13514) 09/19/1999 Removal of gallbladder (66178) 1 Any surgical history 09/19/2009 Appendectomy (99482) 09/20/1993
--- OUTSIDE RECORDS SUMMARY | 2025-02-12 10:57 | XMS_ITS | Clinical Summary ---
Author Organization [facility] Address [address] [place] [address] Phone Care Team Providers Care Motor Lodge Clerk Name Role Phone Radha Kaminski Primary Care Provider [phone] Allergies Active Allergy Reactions Criticality Noted Date Comments Prochlorperazine Other (see comments),Shortness of breath High 11/26/2016 Lockjaw Lockjaw Medications aspirin (ST DUDLEY) 81 MG EC tablet Take 81 mg by mouth daily Active buPROPion XL (WELLBUTRIN XL) 150 MG 24 hr tablet 2 Active Cholecalciferol (Vitamin D3) 1.25 MG (56085 UT) capsule Twice a week 2 Active clobetasol (TEMOVATE) 0.05 % cream RUB IN WELL TWICE A DAY TO INVOLVED AREAS OF BODY UNTIL CLEAR 2 Active Trulicity 1.5 MG/0.5ML solution pen-injector 2 Active estradiol (ESTRACE) 2 MG tablet 2 Active fluticasone (FLONASE) 50 MCG/ACT nasal spray 2 Active gabapentin (NEURONTIN) 300 MG capsule 2 Active Hysingla ER 30 MG tablet extended-releas e 24 hour 2 Active ibuprofen (ADVIL) 800 MG tablet 2 Active Icosapent Ethyl 1 g capsule 2 Active MAGnesium-Oxide 400 (240 Mg) MG tablet 2 Active methylphenidate (CONCERTA) 36 MG CR tablet 2 Active montelukast (SINGULAIR) 10 MG tablet montelukast 10 mg tablet Active Naloxone HCl 4 MG/0.1ML liquid naloxone 4 mg/actuation nasal spray Active rosuvastatin (CRESTOR) 20 MG tablet 2 Active Active Problems Problem Noted Date Diagnosed [...] = 0.6 oz pur e alcohol) occasional Comments Unknown Sex and Gender Information Value Date Recorded Sex Assigned at Not on file Legal Sex Female 8:17 AM MDT Gender Identity Not on file Sexual Orientation Not on file Last Filed Vital Signs Vital Sign Reading Time Taken Comments Blood Pressure 116/66 06/21/2022 11:16 AM CDT Pulse 72 06/21/2022 11:16 AM CDT Temperature 36.5 C (97.7 F) 06/21/2022 11:16 AM CDT Respiratory Rate - - Oxygen Saturation - - Inhaled Oxygen Concentration - - Weight 102 kg (225 lb) 06/21/2022 11:16 AM CDT Height 170.2 cm (5' 7) 06/21/2022 11:16 AM CDT Body Mass Index 35.24 06/21/2022 11:16 AM CDT Plan of Treatment Health Maintenance Due Date Last Done Comments Influenza Vaccine (Season Ended) [address] [place] [address] Care Teams Motor Lodge Clerk Relationship Specialty Start Date End Date Radha Kaminski [facility] [place] [id number] PCP - General Family Medicine 06/21/22
--- OUTSIDE RECORDS SUMMARY | 2025-02-12 10:58 | XMS_ITS ---
Author Organization [facility] [facility] Address [address] [place] [address] [address] Care Team Providers Care Racquet Maker Name Role Phone Roland Rojas DO Primary Care Provider Unavail Julian Mcconnell Unavailable [phone] REASON FOR VISIT Pt r/s and no one documented it or removed this encounter Social History Sex Assigned At : Social History Observation Description Sex Assigned At Female Encounters Encounter Location Date Provider Diagnosis [facility] [facility] [address] [address] 11/22/2024 Julian Cummings Plan Of Treatment Next Appt Details Provider Name:Julian shaw, 02/19/2025 02:00:00 PM, [address], [facility] [address], [place], [address], Progress Notes * IZABELA PARRA GDOB:1969 (54 yo F)Acc No.[id number]:11/22/2024 Patient: Bianka ALIDABRITTANEY IZABELA Villafana Provider: LEOLA IQBAL :1970 A ge:54 Y S ex:Female Date:11/22/2024 Address:[address] [place], [place] [id number] Pcp:Roland Rojas DO Subjective: * Chief Complaints: * 1 . Pt r/s and no one documented it or removed this encounter. * Medical History: Objective: * Vitals: Assessment: Plan: * Treatment: * Billing Information: * Visit Code: * Procedure Codes: * Electronic signature of LEOLA Rosas on 02/12/2025 at 10:58 AM CDT Sign off status: Pending * Provider: LEOLA IQBAL Date: 0 11/22/2024 Generated for Dilip brown/Elen/Rachel on: 0 02/12/2025 10:58 AM CDT
--- OUTSIDE RECORDS SUMMARY | 2025-02-12 10:58 | XMS_ITS | Clinical Summary ---
Author Organization [facility] [employer] Address [address] [place] [address] Care Team Providers Care Hardware Trainer Name Role Phone Roland Rojas DO Primary [...] mg total) by mouth as needed Active cetirizine (ZyrTEC) 10 mg tablet Take [...] mg total) by mouth daily 3 Active oxyCODONE 5 mg tablet, oral [...] mg total) by mouth daily 4 Active rosuvastatin (CRESTOR) 40 mg tablet Take 1 tablet (40 mg total) by mouth nightly 90 tablet 5 Active magnesium oxide (MAG-OX) 400 mg (241.3 mg elemental magnesium) tabletIndicatio ns:hypomagnesem ia Take 1 tablet (400 mg total) by mouth daily 90 tablet 5 Active Active Problems Problem Noted Date Diagnosed Date Pain in joint involving ankle and foot 4 Chronic pain syndrome 06/22/2023 Postlaminectomy syndrome 05/17/2023 Cervical radiculopathy 05/17/2023 Radiculopathy, lumbosacral region 05/17/2023 Coronary artery disease invo lving [place] coronary artery of [place] heart without angina pectoris 04/19/2023 Essential hypertension 04/19/2023 Hyperlipidemia associated with type 2 diabetes m ellitus 04/19/2023 Aortic valve regurgitation 04/19/2023 Obesity 04/19/2023 Carotid artery stenosis 04/19/2023 Asthma 02/20/2023 05/17/2023 Neuropathy 02/20/2023 05/17/2023 Type 2 diabetes mellitus without complication Allergic rhinitis 02/20/2023 Vitamin D deficiency 02/20/2023 Cardiovascular stress test abnormal 02/20/2023 Fatigue 02/20/2023 Traumatic rupture of peronea l tendon, right, subsequent encounter 11/04/2022 Overview (01/24/2024): Added automatically from request for surgery [id number] Nonspecific abnormal results of function study o [...] 05/17/2023 Type 2 diabetes mellitus without complication Surgical History Surgery Date Site/Laterality Comments HYSTERECTOMY [...] on file Legal Sex Female 7:45 PM SOLE BUFFER Gender Identity Not on file Sexual Orientation Not on file Obstetrics History Last Filed Vital Signs Vital Sign Reading Time Taken Comments Blood Pressure 118/82 08/23/2024 2:00 PM SOLE BUFFER Pulse 82 08/23/2024 2:00 PM SOLE BUFFER Temperature 36.5 C (97.7 F) 02/18/2022 2:55 PM CDT Respiratory Rate 17 05/17/2023 1:17 PM CDT Oxygen Saturation 99% 08/23/2024 2:00 PM SOLE BUFFER Inhaled Oxygen Concentration - - Weight 107 kg (236 lb) 08/23/2024 2:00 PM SOLE BUFFER Height 170.2 cm (5' 7) 08/23/2024 2:00 PM SOLE BUFFER Body Mass Index 36.96 08/23/2024 2:00 PM SOLE BUFFER Plan of Treatment Health Maintenance Due Date Last Done Comments Albumin Creatinine Ratio, Urine 1970 Breast Cancer Screening-Mammogram 1970 Colon Cancer Screening-Colonoscopy 1970 Depression Screening 1970 Hemoglobin A1C 1968 Hepatitis C Screening 1968 Dilated Eye Exam 1968 Foot Exam 1968 DTaP/Tdap/Td Vaccine (1 - Tdap) 1979 Hepatitis B Screening 1986 Regular Well Visit/Exam 18-64 1986 Pneumococcal vaccine <65 (1 of 2 - PCV) 1987 Zoster Vaccine (1 of 2) 2018 eGFR 02/18/2023 02/18/2022 Influenza Vaccine (Season Ended) 2025 Lipid Panel 08/23/2025 08/23/2024 Procedures Procedure Name Priority Date/Time Associated Diagnosis Comments POCT LIPID PANEL Routine 08/23/2024 2:54 PM SOLE BUFFER Coronary artery disease involving [place] coronary artery of [place] heart without angina pectoris Hyperlipidemia associated with type 2 diabetes mellitus (HCC) EGFR STAT 02/18/2022 1:07 PM CDT from Last 3 Months or Most Recently Relevant to Health Maintenance Results * POCT lipid panel (08/23/2024 2:54 PM SOLE BUFFER) Cholesterol, POC 234 mg/dL HDL, POC 48 mg/dL Triglycerides, POC 305 mg/dL LDL Cholesterol POC 125 mg/dL Chol/HDL Ratio, POC 4.9 Non-HDL Cholesterol, POC 186 mg/dL Cholesterol Total, POC 234 mg/dL Capillary blood 08/23/2024 2 :54 PM SOLE BUFFER Rhett Ramírez MD POINT OF CARE TEST ORDERA BLES Final Result * eGFR (02/18/2022 1:07 PM CDT) eGFR 67 mL/min/1. 73 m2 AMANUEL Comment: Interpretive Data Reference Interval Normal >/= 90 mL/min/1.73m2 Mildly decreased* 60 - 89 mL/min/1.73m2 Mildly to moderately decreased 45 - 59 mL/min/1.73m2 Moderately to severely decreased 30 - 44 mL/min/1.73m2 Severely decreased 15 - 29 mL/min/1.73m2 Kidney Failure < 15 mL/min/1.73m2 *Relative to young adult level Estimated glomerular [...] 1:07 PM CDT 02/18/2022 1:12 PM CDT David Hancock MD LAB BLOOD ORDERABLES Final Re sult [facility] [id number] [facility] [place] [address] from Last 3 Months or Most Recently Relevant to Health Maintenance Insurance [employer] OPEN ACCESS CIGNA OPEN ACCESS CIGNA OPEN ACCESS PENDING SALE TO [facility] OPEN ACCESS Care Teams Hardware Trainer Relationship Specialty Start Date End Date Roland Rojas DO [address] [place] [address] PCP - General Family Medicine 01/24/24
--- OUTSIDE RECORDS SUMMARY | 2025-02-12 10:58 | XMS_ITS | Encounter Summary ---
Author Organization [facility] Address [address] [place] [address] Care Team Providers Care Public Relations Name Role Phone Radha Kaminski MYRON-BUSINESS OPERATIONS ANALYST Primary Care Provider [phone] Harmony Mcrae MD Unavailable Encounter Details Date Type Department Care Team (Late st Contact Info) Description 06/20/2023 Lab Requisition [facility] - DermPath Lab [address] [place] [address] Andrzej Aguilar MD [address] [place] [address] Social History Tobacco Use Types Packs/Day Years Used Date Smoking Tobacco: Never Smokeless Tobacco: Never Alcohol Use Standard Drinks/Week Comments Never 0 (1 standard drink = 0.6 oz pur e alcohol) Comments Unknown Sex and Gender Information Value Date Recorded Sex Assigned at Not on file Legal Sex Female 5:06 PM STENOGRAPHER SECRETARY Gender Identity Not on file Sexual Orientation Not on file documented as of this encounter Plan of Treatment Not on file documented as of this encounter Procedures Procedure Name Priority Date/Time Associated Diagnosis Comments DERMATOPATHOLOGY Routine 06/20/2023 12:0 0 AM CDT documented in this encounter Results * DERMATOPATHOLOGY (06/20/2023 12:00 AM CDT) Case Report Dermatopathology Report Case: [id number] Authorizing Provider: Andrzej Aguilar MD Collected: 06/20/2023 12:00 AM Ordering Location: [facility] DermPath Lab Received: 06/21/2023 06:10 AM Pathologist: Elizabeth Santos MD Specimen: Skin, right ant tib 4:35 PM CDT DERMATOPATHOLOGY LABORATORY Final Diagnosis Specimen A. SKIN, right ant tib: HEALING SKIN CHANGES, SUPERFICIAL PORTIONS OF (L90.5) PRESENT AT MARGIN (see microscopic description and comment) 4:35 PM CDT DERMATOPATHOLOGY LABORATORY at 1635 CDT Clinical History DF vs. R/O Neoplasm. Check Margins. 4:35 PM CDT DERMATOPATHOLOGY LABORATORY Gross Description Specimen A: Received is one formalin filled container labeled with the patient's name and designated right ant tib. The specimen consists of a shave biopsy measuring 7x5x1 mm. Jar 0. 4:35 PM CDT DERMATOPATHOLOGY LABORATORY Microscopic Description [...] a deeper dermal process cannot be excluded. 4:35 PM CDT DERMATOPATHOLOGY LABORATORY Disclaimer An external and internal positive and negative controls are appropriate for the histochemical, immunohistochemical and immunofluorescence stain(s) in this case (if any), except where stated explicitly. The performance characteristics of the stain(s) cited in this report were developed and its performance characteristic determined by the Dermatopathology Laboratory at [facility], directed by Dr. Jean-Pierre Miller. These tests need not be, and therefore are not, approved by the [place] Food and Drug Administration. The tests are used for clinical purposes. Billing Codes Specimen Charges Stain Charges 24323 1 37596 1 4:35 PM CDT DERMATOPATHOLOGY LABORATORY Embedded Images 4:35 PM CDT DERMATOPATHOLOGY LABORATORY Pathology/Cytolog y TISSUE SPECIMEN FROM SKIN / Unknown 06/20/2023 06/21/2023 6:10 AM CDT us Andrzej Aguilar MD LAB - PATHOLOGY/CYTOLOGY ORDERAB LES Final Result DERMATOPATHOLOGY LABORATORY [facility] - Department of Dermatology [facility] Medicine [address] [phone] documented in this encounter Visit Diagnoses Not on filedocumented in this encounter Care Teams Public Relations Relationship Specialty Start Date End Date Radha Kaminski APRN-BUSINESS OPERATIONS ANALYST [address] [facility] [address] [facility] [address] [place] [phone] PCP - General Nurse Practitioner Family 12/03/21 [place] [address] [place] [phone] Rheumatology 12/03/21 documented as of this encounter
--- OUTSIDE RECORDS SUMMARY | 2025-02-12 10:58 | XMS_ITS | Clinical Summary ---
Author Organization [facility] Address [address] [facility] [place] [address] Care Team Providers Care Rn Picu Name Role Phone Radha Kaminski MYRON-FLOWER SHOP MANAGER Primary Care Provider [phone] Harmony Mcrae MD Unavailable Source Comments [facility],non-owned Affiliates and Associated Physician Practices is amultiple site organization consisting of ambulatory clinics and hospital sitesin [place], [place], [place] and [place]. This disclosure is being madepursuant to the Care Everywhere program and may not contain all information available regarding this patient. Last updated 18.[facility] Allergies Active Allergy Reactions Criticality Noted Date Comments Prochlorperazine Other,Shortness of Breath High 11/26/2016 Lockjaw Other reaction(s): Other (see comments) Lockjaw Lockjaw Lockjaw Medications * This document contains information received from the source organization and may not represent a complete record from that organization. * Be aware that medications may not be up to date on this document. Alwaysverify current medications with the patient. oxyCODONE, immediate release, (ROXICODONE) 5 MG tablet Take 1 (one) tablet by mouth every 4 hours as needed 1 Active magnesium oxide (MAG-OX) 400 MG tablet [...] (one) capsule by mouth 3 times daily 2 Active dulaglutide (TRULICITY) 0.75 MG/0.5ML injection Inject 0.5 mL subcutaneously every 7 days Active cetirizine (ZYRTEC ALLERGY) 10 MG gel capsule Take 1 (one) capsule by mouth as needed Active fluticasone propionate (FLONASE) 50 MCG/ACT nasal spray [place] 2 (two) sprays into each nostril once daily Active blood glucose (NumberPictureTOUCH ULTRA) test strip USE TO TEST THREE TIMES A DAY 1 Active estradiol (ESTRACE) 2 MG tablet Take 1 (one) tablet by mouth every 24 hours Active Multiple Vitamins-Human Resources Benefits Specialist als (MULTI VITAMIN/MINERA LS) TABS Take 1 (one) tablet by mouth once daily Active [place]-3 Fatty Acids (FISH OIL) 1000 MG capsule Take 1 (one) capsule by mouth once daily Active Cholecalcifero l 1.25 MG (22060 UT) Take 1 capsule by mouth every Tuesday, Tuesday & Tuesday Active Ergocalciferol (VITAMIN D2) 50 MCG (2000 UT) Take 1 tablet by mouth every Tuesday, , & Tuesday Active aspirin EC (Ecotrin) 81 MG tablet Take 1 (one) tablet by mouth once daily Active HYDROcodone ER 24hr (Hysingla ER) 30 MG tablet Take 1 (one) tablet by mouth once daily 2 Active buPROPion XL 24hr (Wellbutrin-XL ) 150 MG tablet Take 1 (one) tablet by mouth once daily 2 Active naloxone HCl (Narcan) 4 MG/0.1ML nasal spray [place] 1 (one) spray into the nose Active icosapent ethyl (Vascepa) 1 g capsule Take 3 (three) capsules by mouth once daily 3 Active rosuvastatin (Crestor) 20 MG tablet Take 1 (one) tablet by mouth once daily 3 Active methylphenidat e ER (Concerta) 54 MG tablet Take 1 (one) tablet by mouth every morning 3 Active budesonide-for moterol (Symbicort) 160-4.5 MCG/ACT inhaler Inhale 2 (two) [...] INVOLVED AREAS OF BODY UNTIL CLEAR Active cyclobenzaprin e (Flexeril) 5 MG tablet Take 1 (one) tablet by mouth 3 times daily Active DULoxetine (Cymbalta) 30 MG capsule Take 1 (one) capsule by mouth once daily Active Estradiol (Elestrin) 0.52 MG/0.87 GM (0.06%) Apply 1 pump every day by topical route. Active HYDROcodone-ac etaminophen (Mcewen) 5-325 MG tablet Take 1 (one) tablet by mouth two times daily at 4am and 4pm Active indomethacin (Indocin) 50 MG capsule TAKE 1 CAPSULE BY MOUTH THREE TIMES A DAY ADMINISTER WITH FOOD OR MILK Active mupirocin (Bactroban) 2 % ointment 1 APPLIC TOPICALLY TWICE A DAY Active nystatin (Mycostatin) 935398 UNIT/ML suspension Take 5 mL 4 times a day by oral route for 7 days. Active dulaglutide (Trulicity) 1.5 MG/0.5ML injection Inject 0.5 mL every week by subcutaneous route. Active icosapent ethyl (Vascepa) 1 g capsule Take 2 (two) capsules by mouth 2 times daily 3 Active oxyCODONE, immediate release, (Roxicodone) 5 MG tablet Take 1 (one) tablet by mouth two times daily at 4am and 4pm Active HYDROcodone ER 24hr (Hysingla ER) 20 MG tablet Take 1 (one) tablet by mouth every 24 hours Active tiZANidine (Zanaflex) 4 MG tablet Take 1 (one) tablet by mouth every 8 hours as needed for Muscle Spasms 60 tablet 3 Active Additional Information Patient not taking.Reported on 10/06/2023 Vraylar 1.5 MG capsule 3 Active meloxicam (Mobic) 7.5 MG tablet 3 Active glimepiride (Amaryl) 2 MG tablet Take 1 (one) tablet by mouth as needed Active methylPREDNISo lone (Medrol Dosepak) 4 MG tablet Take by mouth as directed Take as directed by mouth per package instructions. 21 tablet 3 Active Additional Information Patient not taking.Reported on 10/06/2023 hydroxychloroq uine (Plaquenil) 200 MG tablet Take 1 (one) tablet by mouth 2 times daily 60 tablet 1 3 Active ciprofloxacin (Cipro) 500 MG tablet Take 1 (one) tablet by mouth 2 times daily 3 Active cyclobenzaprin e (Flexeril) 10 MG tablet 1 TABLET 3 TIMES A DAY NEEDED 3 Active Magnesium Oxide -Mg Supplement 400 (240 Mg) MG 3 Active meloxicam (Mobic) 7.5 MG tablet Take 1 (one) tablet by mouth once daily 3 Active Methylphenidat e HCl (methylphenida te CR) 54 MG tablet Take 1 (one) tablet by mouth every morning 3 Active methylphenidat e ER (Concerta) 36 MG tablet Take 1 (one) tablet by mouth every morning 2 Active metroNIDAZOLE vaginal (Metrogel - Vaginal) 0.75 % vaginal gel INSERT ONE APPLICATORFUL VAGINALLY ONCE NIGHTLY FOR FIVE DAYS 3 Active triamcinolone acetonide (Kenalog) 0.1 % cream Apply to affected area 2 times daily Active cariprazine (Vraylar) 3 MG capsule 3 Active dulaglutide (Trulicity) 1.5 MG/0.5ML injection Inject 0.5 mL subcutaneously every 7 days 3 Active rosuvastatin (Crestor) 40 MG tablet 3 Active predniSONE (Deltasone) 5 MG tablet 1 tab po q day as needed 30 tablet 4 Active Active Problems No known active problems Social History Tobacco Use Types Packs/Day Years Used Date Smoking Tobacco: Never Smokeless Tobacco: Never Tobacco Cessation:Counseling Given: Not Answered Alcohol Use Standard Drinks/Week Comments Never 0 (1 standard drink = 0.6 oz pur e alcohol) Comments Unknown Sex and Gender Information Value Date Recorded Sex Assigned at Not on file Legal Sex Female 5:06 PM DIRECTOR FURNITURE Gender Identity Not on file Sexual Orientation Not on file Last Filed Vital Signs Vital Sign Reading Time Taken Comments Blood Pressure 122/68 10/06/2023 2:03 PM DIRECTOR FURNITURE Pulse 79 10/06/2023 2:03 PM DIRECTOR FURNITURE Temperature 36.6 C (97.9 F) 01/07/2022 2:03 PM CDT Respiratory Rate 16 08/02/2023 2:35 PM DIRECTOR FURNITURE Oxygen Saturation 97% 08/02/2023 2:35 PM DIRECTOR FURNITURE Inhaled Oxygen Concentration - - Weight 93.9 kg (207 lb) 10/06/2023 2:03 PM DIRECTOR FURNITURE Height 170.2 cm (5' 7) 10/06/2023 2:03 PM DIRECTOR FURNITURE Body Mass Index 32.42 10/06/2023 2:03 PM DIRECTOR FURNITURE Plan of Treatment Health Maintenance Due Date [...] VACCINE ( - 2023-2 5 season) 2024 DEPRESSION SCREENING 09/19/2024 INFLUENZA VACCINE (Season Ended) 2025 SCREENING FOR DIABETES 08/02/2026 08/02/2023 HEPATITIS C SCREENING Completed 08/02/2023 , 12/03/2021 HIB VACCINE Aged Out No longer eligi ble based on patient's age to complete this topic HPV VACCINE Aged Out No longer eligi ble based on patient's age to complete this topic MENINGOCOCCAL (Group B) VACCINE SHARED DECISION-MAKING Aged Out No longer eligible based on patient's age to complete this topic MENINGOCOCCAL GROUPS A/C/Y/W VACCINE Aged Out No longer eligible b ased on patient's age to complete this topic Procedures Procedure Name Priority Date/Time Associated Diagnosis Comments COMPREHENSIVE METABOLIC PANEL Routine 08/02/2023 3:29 PM DIRECTOR FURNITURE Arthralgia, unspecified joint HEPATITIS SCREEN ACUTE ([facility]) Routine 08/02/2023 3:28 PM DIRECTOR FURNITURE Arthralgia, unspecified joint from Last 3 Months or Most Recently Relevant to Health Maintenance Results * (ABNORMAL) COMPREHENSIVE METABOLIC PANEL (08/02/2023 3:29 PM DIRECTOR FURNITURE) Glucose 95 70 - 99 mg/dL [facility] [...] BLOOD SPECIMEN / Unknown 08/02/2023 3:29 PM DIRECTOR FURNITURE 08/02/2023 Narrative Resulting Agency Comment [facility] [address] [facility] [id number] Harmony Mcrae MD LAB - CHEMISTRY ORDERABLES Final Result [facility] INSURANCE BILL [address] [place] [address] * HEPATITIS SCREEN ACUTE ([facility]) (08/02/2023 3:28 PM DIRECTOR FURNITURE) Hepatitis A Virus Antibody IgM Negative Negative [facility] INSURANCE BILL Hepatitis B Virus Surface Antigen Negative Negative [facility] INSURANCE BILL Hepatitis B Core Virus Antibody IgM Negative Negative [facility] INSURANCE BILL Hepatitis C Antibody Non Reactive Non Reactive [facility] INSURANCE BILL Blood BLOOD SPECIMEN / Unknown 08/02/2023 3:28 PM DIRECTOR FURNITURE 08/02/2023 Narrative Resulting Agency Comment Lab Testing performed at: [facility] [id number] Harmony Mcrae MD LAB - CHEMISTRY ORDERABLES Final Result [facility] INSURANCE BILL [address] [place] [address] from Last 3 Months or Most Recently Relevant to Health Maintenance Insurance Care Teams Rn Picu Relationship Specialty Start Date End Date Yamilex RadhaMYRON-SCOTT [address] [facility] [address] [place] [phone] PCP - General Nurse Practitioner Family 12/03/21 [place] [address] [place] [address] [place] [phone] Rheumatology 12/03/21
--- OUTSIDE RECORDS SUMMARY | 2025-02-12 10:58 | XMS_ITS | Data Portability ---
Author Organization [place] - [employer], Main Office Address [address] [place] [address] Care Team Providers Care Carbonation Tester Name Role Phone FATOUJULIO WAGGONER Primary Care Provider HOPEDILSONJULIO Referring Provider [phone] Assessment Encounter Date Assessment Date Assessment LastModified by Organization Details LastModified Time 02/23/2023 02/23/2023 WWE- DIRECTOR CAMP- Dalla Saba Mammo- 11/2021, ordered DEXA- 11/2021 [...] my care. She voices understanding of this. [email or web address] Not available 02/23/2023 16:47:43 Plan of Treatment Reminders Order Date Submit Date Provider Last Modified By Organization Details Last Modified Time Details Appointments None recorded. Lab vitamin D, 25-hydroxy, total, serum 2022 023 [facility], [address], [place], [address], 3 04:44:38 Referral None recorded. Procedures colonoscopy screening (PROC) 2022 023 [email or web address] Jaeger MD, [address], [address], [place], [address], 3 14:31:06 Surgeries None recorded. Imaging MAMMO, screening, bilateral 2022 023 [email or web address] [facility], [address], [address], [address], 15:56:08 Medication Orders None recorded. Patient TargetsNo targets recorded. Patient Instructions Encounter Date Encounter Id Patient Instructions Last Modified By Organization Details Last Modified Time 02/23/2023 [id number] INFLUENZA VACCIN E Recommended today, but patient declined Ordered P atient will get at local pharmacy/health department Patient has egg allergy Next vaccination to be given fall of Next vaccination to be given fall of 2022 TD/TDAP Patient will get at local pharmacy/health department PNEUMONIA VACCINE Recommended at age 63 SHINGLES Patient will get at local pharmacy/health department MAMMOGRAM: Last Mammogram _ Ordered DEXA SCAN No screening necessary patient is up to date CERVICAL SCREENING/PELVIC EXAMINATION No screening necessary patient is up to date COLORECTAL SCREENING: Last Colonoscopy Ordered DEPRESSION SCREENING Continue current medication BMI Overweight Continue healthy eating & exercise NUTRITION Diabetic Diet PHYSICAL ACTIVITY Need more exercise/physical activity minimum of 30-40 minutes of activity that causes mild breathlessness/day VISION Recommended today ALCOHOL USE No alcohol use TOBACCO USE current tobacco use Patient is not interested in smoking cessation at this time- Handout given LUNG CANCER SCREENING Non Smoker-not indicated Recommen dation for Lung Cancer Screening with LDCT- ordered Recommenda tion for Lung Cancer Screening with LDCT- Patient declined Not indicated until age 48 at age 53 SEXUALLY ACTIVE Yes, Patient is in monogamous relationship HEPATITIS C SCREENING Not indicated GLUCOSE SCREENING Known Diabetic LIPID SCREENING Diagnosis of Hyperlipidemia [email or web address] Not available 02/23/2023 16:51:34 Reason for Referral None Reported. Results Created Date Observation Date Name Description Value Unit Range Abnormal Flag Note LastModifiedBy Organization Detail LastModifiedTime 11/08/1911/08/2022 US, renal No observ ation record ed. [id number] [facility] [address] [place], [address], 11/17/2022 20:40:02 11/11/19 23 11/11/2022 CT, cervi daina spine , w/o contr ast No observ ation record ed. [id number] [facility] [address] [place], [address], 11/17/2022 20:40:02 11/11/19 23 11/11/2022 CT, lumba r spine , w/o contr ast No observ ation record ed. [id number] [facility] [address] [place], [address], 11/17/2022 20:40:02 11/26/19 23 11/24/2022 XR, lumba r spine No observ ation record ed. [address] [place], [address], 11/26/2022 17:06:46 11/26/19 23 11/24/2022 XR, cervi daina spine No observ ation record ed. [address] [place], [address], 11/26/2022 17:07:30 01/30/20 23 01/29/2023 XR, wrist No observ ation record ed. [address] [place], [address], 02/01/2023 11:13:37 07/22/20 23 07/22/2023 CT, head + brain , w/o contr ast No observ ation record ed. [address] [place], [address], 07/28/2023 17:21:08 Result Notes None recorded. Problems Name Problem SNOMED Code Status Onset Date Resolution Date Notes Provider Name and Address Organization Details Recorded Time Carpal tunnel syndrome of right wrist 7678107690916 08 Active 2021 Not Available [facility] 20:39:10 Suppurativ e arthritis 791544978 Active Not Available [facility] 20:39:10 Mixed anxiety and depressive disorder 924708861 Active 2022 GISELE Infante [address], [address], [place], [address] , [employer] [facility] [employer] [facility] 19:36:32 Type 2 diabetes mellitus without complicati on 310183625 Active 2022 ASIM Infante-C [address], [place], [address] , [employer] [facility] [employer] [facility] 19:36:38 Neuropathy 211439689 Active 2022 MARTHA InfanteC [address], [address], [place], [address] , [employer] [facility] [employer] [facility] 19:36:54 Asthma 578562685 Active 2022 GISELE Infante [address], [address], [place], [address] , [employer] [facility] [employer] [facility] 19:36:57 Allergic rhinitis 41196220 Active 2022 MARTHA InfanteC [address], [address], [place], [address] , [employer] [facility] [employer] [facility] 19:37:23 Cardiovasc ular stress test abnormal 419440353 Active 2022 GISELE Infante [address], [address], [place], [address] , [employer] [facility] [employer] [facility] 19:38:27 Vitamin D deficiency 32473216 Active 2022 MARTHA InfanteC [address], [place], [address] , [employer] [facility] [employer] [facility] 19:38:34 Fatigue 24466595 Active 2022 MARTHA InfanteC [address], [place], [address] , [facility] 3 19:38:37 Chronic pain syndrome 114018778 Active 2022 Iliana kolb, [facility] 14:31:47 Problem Notes None recorded. Procedures Surgical History Date Name Laterality Status Provider Name and Address Organization Details Recorded Time Hysterectomy completed Not Available [facility] 11/17/2022 20:38:32 Neck Surgeries completed Not Available [facility] 11/17/2022 20:38:32 Back Surgeries completed Not Available [facility] 11/17/2022 20:38:32 Foot Surgery completed Not Available [facility] 11/17/2022 20:38:32 Knee Surgery completed Not Available [facility] 11/17/2022 20:38:32 Imaging Results None recorded. Procedure Notes None recorded. Medical Equipment None Reported. Allergies Allergen ID Allergen Name Allergen Category Reaction Reaction Severity Criticality Documentation Date Start Date Code Code System Note Provider Name and Address Organization Details Recorded Time 58826 Compazine medicatio n Not available Not available Not available 11/17/202293151 6 RxNorm (lock jaw) Not Available [facility] 20:39:59 Medications Name Sig Start Date Stop [...] Heart rate Body temperature Body weight Systolic And Diastolic Provider Name and Address Organization Details Last Updated DateTime 3 31.3 kg/m2 170.18 cm 97 % 97 % 98 /min 98.1 [degF] 41400.4 7 g 128/76 mm[Hg] Not Available [facility] 3 20:38:57 Date Recorded Body height Body mass index (BMI) Body weight Body temperature Heart rate Oxygen saturation Oxygen saturation in Arterial blood by Pulse oximetry Systolic And Diastolic Provider Name and Address Organization Details Last Updated DateTime 3 170.18 cm 28.2 kg/m2 27520.6 3 g 98.4 [degF] 82 /min 98 % 98 % 118/74 mm[Hg] Melina James MA [place] [facility] 3 16:17:44 Date Recorded Body mass index (BMI) Body height Body weight Provider Name and Address Organization Details Last Updated DateTime 05/25/2022 34.5 kg/m2 170.18 cm 38850.32 g Not Available [facility] 11/17/2022 20:38:59 Date Recorded Body mass index (BMI) Body height Body weight Provider Name and Address Organization Details Last Updated DateTime 08/24/2022 33.2 kg/m2 170.18 cm 91636.58 g Not Available [facility] 11/17/2022 20:38:59 Date Recorded Body mass index (BMI) Body height Oxygen saturation Oxygen saturation in Arterial blood by Pulse oximetry Heart rate Body temperature Body weight Systolic And Diastolic Provider Name and Address Organization Details Last Updated DateTime 2 32.6 kg/m2 170.18 cm 97 % 97 % 98 /min 97.7 [degF] 90259.2 1 g 132/76 mm[Hg] Not Available [facility] 3 20:38:57 Social History Question Answer Notes LastModified by [employer] ion Details LastModified Time Tobacco Smoking Status Never Smoker Not Available [facility] 11/17/2022 20:38:28 Do You Wear A Helmet When Biking? No [id number].02953 [id number] Information not available 11/17/2022 What Is Your Level Of Caffeine Consumption? Moderate MIGRATION.43076 48557 Information not available 11/17/2022 In The 14 Days Before Symptom Onset, Have You Had Close Contact With A Laboratory-confir med COVID-19 While That Case Was Ill? No MIGRATION.86490 01866 Information not available 11/17/2022 In The 14 Days Before Symptom Onset, Have You Had Close Contact With A Person Who Is Under Investigation For COVID-19 While That Person Was Ill? No MIGRATION.81257 97251 Information not available 11/17/2022 What Type Of Diet Are You Following? REGULAR MIGRATION.96727 67507 Information not available 11/17/2022 Have There Been Any Changes To Your Family Or Social Situation? No MIGRATION.37497 00319 Information not available 11/17/2022 What Is The Fluoride Status Of Your Home? Unknown MIGRATION.99093 74524 Information not available 11/17/2022 Do You Use Insect Repellent Routinely? No MIGRATION.09315 32588 Information not available 11/17/2022 Where Do You Live? [place] MIGRATION.74791 04178 Information not available 11/17/2022 What Was The Date Of Your Most Recent Tobacco Screening? 02/23/2023 [email or web address] Information not available 02/23/2023 Do You Have Any Pets? Yes MIGRATION.86891 54349 Information not available 11/17/2022 Do You Have Smoke And Carbon Monoxide Detectors In Your Home? Yes MIGRATION.39127 07343 Information not available 11/17/2022 Are You Passively Exposed To Smoke? No MIGRATION.03960 11911 Information not available 11/17/2022 Are There Any Smokers In Your House? No MIGRATION.75723 24662 Information not available 11/17/2022 Do You Use Sunscreen Routinely? No MIGRATION.19620 35784 Information not available 11/17/2022 Have You Recently Traveled Abroad? No MIGRATION.41879 82157 Information not available 11/17/2022 Do You Have Any Dietary Restrictions? No MIGRATION.82431 40894 Information not available 11/17/2022 Sex: Unknown Functional Status Question Answer Note LastModified by [employer] Details LastModified Time Do you or have you ever used any other forms of tobacco or nicotine? No MIGRATION.[id number] 6 Information not available 11/17/2022 What is your level of alcohol consumption? None MIGRATION.[id number] 6 Information not available 11/17/2022 What is your exercise level? Moderate MIGRATION.[id number] 6 Information not available 11/17/2022 Mental Status Question Answer Note LastModified by [employer] Details LastModified Time Do you feel stressed (tense, restless, nervous, or anxious, or unable to sleep at night)? [id number] MIGRATION.[id number] 6 Information not available 11/17/2022 Family History Relationship Description Onset Age of this Age Resolved Age Notes LastModified by Organization Details LastModified Time Mother Family history of malignant neoplasm [id number] Not available 11/17/2022 20:38:33 Medical History Condition Response DIABETES, TYPE Y Gynecological HistoryNo gynecological history recorded. Obstetrics History GPAL:G 0 P 0 0 0 0 Past Encounters Encounter ID Performer Location Encounter Start Date Encounter Closed Date Diagnosis/Indication Diagnosis SNOMED-CT Code Diagnosis ICD10 Code Diagnosis Note [id number] Isabella shaw MD [facility] [place] [address] [place] [address] [place] [address] 12/02/2021 00:00:00 12/02/2021 17:07:21 [id number] [facility] [place] [address] [place] [address] [place] [address] 12/30/2021 00:00:00 12/30/2021 14:49:27 [id number] Edward Osborne MD [facility] [place] [address] [place] [address] 01/12/2022 00:00:00 01/12/2022 15:29:24 [id number] [facility] [place] [address] [place] [address] [place] [address] 01/20/2022 00:00:00 01/20/2022 14:52:49 [id number] Isabella shaw MD [facility] [place] [address] [place] [address] [place] [address] 02/03/2022 00:00:00 02/03/2022 15:30:47 [id number] Isabella shaw MD [facility] Internal [facility] [place] [address] [place] [address] [place] [address] 03/31/2022 00:00:00 03/31/2022 16:28:57 [id number] Edward Osborne MD [facility] [place] [address] [place] [address] 04/09/2022 00:00:00 04/09/2022 13:24:19 [id number] Edward [facility] MD [facility] [place] [address] [place] [address] 04/27/2022 00:00:00 04/27/2022 16:52:36 [id number] Edward Osborne MD [facility] [place] [address] [place] [address] 05/25/2022 00:00:00 05/25/2022 16:49:47 [id number] Edward Osborne MD [facility] [place] [address] [place] [address] 08/24/2022 00:00:00 08/24/2022 17:22:21 [id number] Isabella shaw MD [facility] Internal Med Gail hardwick [address] [place] [address] [place] [address] 08/25/2022 00:00:00 08/25/2022 16:57:02 [id number] Isabella shaw MD [facility] Internal Med [address], [address] [address] 11/01/2022 00:00:00 11/01/2022 16:01:52 [id number] Isabella shaw MD [facility] Internal Med Gail hardwick [address] [place] [address] [place] [address] 02/23/2023 16:02:31 02/23/2023 16:32:14 Mixed anxiety and depressive disorder 382343254 F41.8 now following psychiatry - Dr. Rollins's officeon wellbutrin from themCal office if any change in mood or behaviorS e is able to commit to safety todayconti nue counseling Type 2 wendy betes mellitus without complication 094568827 E11.9 on Trulicity, glimiperid efollows endocrinol ogy- Dr. Garcia in [facility] eye exam- 11/2021- encouraged her to schedule pt is aware of side effects, risks, benefitspt denies any personal or family history of MEN II or MTC, denies and personal history of pancreatit ispt knows to call the office if any severe n/v or abdominal pain Neuropathy 226750782 G62 .9 follows podiatry- Dr. Harley Gipson gabapentin from him Asthma 656715306 J45.90 9 on proair prnon Symbicort, she is worse at effects, risks, benefitssh e is aware to rinse and spit after use Carpal julita kendra syndrome of right wrist [id number] 14461 G56.01 now following hand surgery- Dr. Osborne Allergic rhinitis 725436 04 J30.9 on flonase and singulairc all office if any change in mood or behavior Body mass index 30+ - obesity 680838040 Z68.31 recommend healthy, well balanced mealsfocus on lean meats, fresh vegetables , fresh fruits, whole grainsredu ce fast/proce ssed foods or eating out to no more than 1-2 times per weekaim to get 30 min of exercise most days of the week- walking is a great choice Cardiovasc ular stress test abnormal 914450612 R94.39 cardiac cath was ok per cardiologi st note Vitamin D deficiency 347 96848 E55.9 hold vitamin d x 4 weeks and then repeat levelnever got repeat level- encouraged her to get Fatigue 68920045 R53.83 no explanatio n for fatigue in labs, recommend sleep study- she declines Screening mammography 24 875436 Z12.31 Family his tory of cancer of colon 515448876 Z80.0 Adult heal th examination 112983342 Z00.01 Depression screening 171 189213 Z13.31 Body mass index 25-29 - overweight 115279628 Z68.28 recommend healthy, well balanced mealsfocus on [...] Guo Member ID Guarantor Name 02/23/2023 1 PRETTY [id number] Niles Croft [id number] Niles Croft Notes Date Note Type Note Provider Name and Address Organization Details Recorded Time 02/23/2023 text/html Niles presents today for follow up. She is also due for annual wellness exam. she reports she has had a ne the foot surgery with her regulatory compliance specialist. She follows up again in a couple weeks. She is just on a regular tennis shoe and not in a boot at this time. She continues to follow Endocrinology for her diabetes. They order all of her labs. 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 She still refuses her sleep study. She did not get her colonoscopy that I ordered last visit. We will get this reordered for her. She does report today that her grandmother actually had colon cancer. She follow psychiatry for her mood meds. She denies any SI or HI today. She never got her repeat vitamin-D level done. She is due for mammogram. ASIM Infante-Rafael [address] [facility] [facility] [address], [place], [address], [place] [facility] [employer] 02/23/2023 16:52:24 OBGyn Episode No OBEpisode recorded.
--- OUTSIDE RECORDS SUMMARY | 2025-02-12 10:58 | XMS_ITS | Referral Summary ---
Author Organization [facility] [address] Address [address] [place] [address] Care Team Providers Care Senior Water Resources Engineer Name Role Phone Roland Rojas DO Primary [...] region 05/17/2023 Coronary artery disease invo lving gulkana coronary artery of gulkana heart without angina pectoris 04/19/2023 Essential hypertension [...] (01/24/2024): Added automatically from request for surgery [id number] Nonspecific abnormal results of function study o [...] 05/17/2023 Type 2 diabetes mellitus without complication Social History Tobacco Use Types Packs/Day Years [...] on file Legal Sex Female 7:45 PM COMMUNITY SERVICE DIRECTOR Gender Identity Not on file Sexual Orientation Not on file Last Filed Vital Signs Vital Sign Reading Time Taken Comments Blood Pressure 118/82 08/23/2024 2:00 PM COMMUNITY SERVICE DIRECTOR Pulse 82 08/23/2024 2:00 PM COMMUNITY SERVICE DIRECTOR Temperature 36.5 C (97.7 F) 02/18/2022 2:55 PM CDT Respiratory Rate 17 05/17/2023 1:17 PM CDT Oxygen Saturation 99% 08/23/2024 2:00 PM COMMUNITY SERVICE DIRECTOR Inhaled Oxygen Concentration - - Weight 107 kg (236 lb) 08/23/2024 2:00 PM COMMUNITY SERVICE DIRECTOR Height 170.2 cm (5' 7) 08/23/2024 2:00 PM COMMUNITY SERVICE DIRECTOR Body Mass Index 36.96 08/23/2024 2:00 PM COMMUNITY SERVICE DIRECTOR Plan of Treatment Not on file Procedures Procedure Name Priority Date/Time Associated Diagnosis Comments POCT LIPID PANEL Routine 08/23/2024 2:54 PM COMMUNITY SERVICE DIRECTOR Coronary artery disease involving gulkana coronary artery of gulkana heart without angina pectoris Hyperlipidemia associated with type 2 diabetes mellitus (HCC) EGFR STAT 02/18/2022 1:07 PM CDT from Last 3 Months or Most Recently Relevant to Health Maintenance Results * POCT lipid panel (08/23/2024 2:54 PM COMMUNITY SERVICE DIRECTOR) Cholesterol, POC 234 mg/dL HDL, POC 48 mg/dL Triglycerides, POC 305 mg/dL LDL Cholesterol POC 125 mg/dL Chol/HDL Ratio, POC 4.9 Non-HDL Cholesterol, POC 186 mg/dL Cholesterol Total, POC 234 mg/dL Capillary blood 08/23/2024 2 :54 PM COMMUNITY SERVICE DIRECTOR Rhett Ramírez MD POINT OF CARE TEST [...] LAB BLOOD ORDERABLES Final Re sult [facility] [address] [facility] Department [place] [address] from Last 3 Months or Most Recently Relevant to Health Maintenance Insurance [employer] OPEN ACCESS [employer] OPEN ACCESS Care Teams Senior Water Resources Engineer Relationship Specialty Start Date End Date Roland Rojas DO [address] [place], [place] [address], [place] [address] PCP - General Family Medicine 01/24/24
[2025-02-12 11:29] LABS: Hematocrit 34.2 % (35.0-49.0); Hemoglobin 11.6 g/dL (12.0-15.0); Mean Corpuscular HGB Conc 33.9 g/dL (32-36); Mean Corpuscular Hemoglobin 30.3 pg (27.0-31.0); Mean Corpuscular Volume 89.3 fL (78.0-102.0); Mean Platelet Volume 11.1 fl (9.2-11.8); Platelet Count Result 160 K/mm3 (150-420); Red Blood Count 3.83 M/mm3 (4.20-5.40); Red Cell Distribution Width 12.4 % (11.6-14.4)
[2025-02-12 12:00] LABS: Creatinine Urine 295.1 mg/dL; Total Protein Urine Random 45 mg/dL; Ur Ttl Prot Creatinine Ratio 0.15 mg/mg (0-0.20)
[2025-02-12 12:03] LABS: Albumin Level 3.4 g/dL (3.5-5.1); Anion Gap 3 mmol/L (4-12); Blood Urea Nitrogen 11 mg/dL (7-17); Calcium 8.4 mg/dL (8.4-10.2); Carbon Dioxide 27 mmol/L (22-30); Chloride 105 mmol/L (98-107); Estimated Glomerular Filt Rate 43; Glucose 163 mg/dL (65-110); Osmolality Calculated 283 mOsm/kg (285-295); Phosphorus 3.2 mg/dL (2.5-4.5); Potassium 3.5 mmol/L (3.4-5.0); Sodium 135 mmol/L (137-145)
[2025-02-13 10:05] LABS: Vitamin D 25 Hydroxy 76 ng/mL (30-100)
[2025-02-13 14:39] LABS: Parathyroid Intact 37 pg/mL (16-77)
== END 2025-02-12 10:51 | disposition home or self-care (01) ==
LOC: CHSLAB 10:54
PROVIDERS: PCP Family Medicine; Visit Provider Internal Medicine Nephrology
DX: E21.1 Secondary hyperparathyroidism, not elsewhere classified (principal); E67.3 Hypervitaminosis D; E11.9 Type 2 diabetes mellitus without complications; M54.12 Radiculopathy, cervical region; M54.16 Radiculopathy, lumbar region; Z98.1 Arthrodesis status; M43.02 Spondylolysis, cervical region; M43.8X2 Other specified deforming dorsopathies, cervical region
CPT/HCPCS: 36415; 72040; 72100; 80069; 82306; 82570; 83970; 84156; 85027

== ENCOUNTER 2025-02-19 21:44 | Emergency (ER) | payer OTHER, MEDICAID, SELFPAY ==
--- OUTSIDE RECORDS SUMMARY | 2025-02-19 21:47 | XMS_ITS | Patient Health Record ---
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 Phone Roland Rjoas DO Primary Care Provider Unavail able Julian Cummings Unavailable [phone] Allergies Allergen (clinical drug ingredient) Drug/Non Drug Allergy documented on EMR Reaction Allergy Type Onset Date Status Compazine Unknown Drug Allergy 12/21/2023 Active Reason For Referral No Information Medications Medication SIG (Take, Route, Frequency, Duration) Notes Start Date End Date Status ICOSAPENT ETHYL 1 GRAM CAPSULE *Reorder from [facility] for eRx and Interaction Alerts* 12/21/2023 Active Rosuvastatin Calcium 40 MG Oral 12/21/2023 Active lamoTRIgine 100 MG 1 tablet Orally Once a day for 30 days 02/19/2025 Active Montelukast Sodium 10 MG Oral 12/21/2023 Active lamoTRIgine 25 MG 1 tablet once a day for 14 days, 2 tablets once a day for 16 days Orally see sign for 30 days 02/19/2025 Active OneTouch Ultra In Vitro 12/21/2023 Acti ve Estradiol 2 MG Oral 12/21/2023 Acti ve Vraylar 3 mg 1 capsule Oral once daily for 90 days Active Mounjaro 5 MG/0.5ML Subcutaneous for 28 Days Active tiZANidine HCl 4 MG Oral 12/21/2023 Active Magnesium Oxide (Elemental) 400 MG Oral *Reorder from [facility] for eRx and Interaction Alerts* 12/21/2023 Active Glimepiride 2 MG Oral 12/21/2023 Ac tive oxyCODONE HCl 5 MG Oral 12/21/2023 Active Gabapentin 300 MG Oral 12/21/2023 A ctive buPROPion HCl ER (XL) 150 MG 1 tablet in the morning Oral Once a day for 90 days Active Methylphenidate HCl ER 36 MG 2 tablet every morning Oral once a day for 30 days 02/19/2025 Active Social History Sex Assigned At : Social History Observation Description Sex Assigned At Female Problems Problem Type SNOMED Code ICD Code Onset Dates Problem Status W/U Status Risk Notes Problem Bipolar affective disorder, currently depressed, moderate (600987994) Bipolar disorder, current episode depressed, moderate (F31.32) 12/21/19 24 Active confirmed Problem Attention deficit hyperactivity disorder, combined type (68043693) Attention-deficit hyperactivity disorder, combined type (F90.2) Active confirmed Vital Signs Heart Rate 87 /min 02/19/2025 Height-cm 170.18 cm 02/19/2025 Blood pressure diastolic 81 mm Hg 02/19/2025 Weight-kg 103.42 kg 02/19/2025 Height 67.00 in 02/19/2025 Blood pressure systolic 126 mm Hg 02/19/2025 Weight 228 lbs 02/19/2025 BMI 35.71 kg/m2 02/19/2025 Encounters Encounter Location Date Provider Diagnosis [facility] [address] [place] [address] 02/19/2025 Julian Cummings Encounter for screen ing for cardiovascular disorders Z13.6 ; Encounter for screening for depression Z13.31 ; Attention-deficit hyperactivity disorder, combined type F90.2 and Bipolar disorder, current episode depressed, moderate F31.32 [facility] [address] [place] [address] 03/27/2024 Julian Cummings Attention-deficit hyperactivity disorder, combined type F90.2 and Bipolar disorder, current episode depressed, moderate F31.32 [facility] [address] [place] [address] 06/27/2024 Julian Cummings Attention-deficit hyperactivity disorder, combined type F90.2 and Bipolar disorder, current episode depressed, moderate F31.32 [facility] [address] [place] [address] 09/26/2024 Julian Cummings Attention-deficit hyperactivity disorder, combined type F90.2 and Bipolar disorder, current episode depressed, moderate F31.32 [facility], [facility] [address] [place] [address] 12/06/2024 Julian Jonesoza Encounter for screen ing for cardiovascular disorders Z13.6 ; Encounter for screening for depression Z13.31 ; Attention-deficit hyperactivity disorder, combined type F90.2 and Bipolar disorder, current episode depressed, moderate F31.32 [facility], [facility] [address] [place] [address] 01/07/2025 Julian Cummings Encounter for screen ing for cardiovascular disorders Z13.6 ; Encounter for screening for depression Z13.31 ; Attention-deficit hyperactivity disorder, combined type F90.2 and Bipolar disorder, current episode depressed, moderate F31.32 [facility], [facility] [address] [place] [address] 03/05/2024 Julian Cummings [facility], [facility] [address] [place] [address] 03/08/2024 Julian Cummings [facility], [facility] [address] [place] [address] 03/13/2024 Julian Cummings Attention-deficit hyperactivity disorder, combined type F90.2 [facility], [facility] [address] [place] [address] 06/13/2024 Julian Jonesoza Attention-deficit hyperactivity disorder, combined type F90.2 [facility], [facility] [address] [place] [address] 06/27/2024 Julian Cummings [facility], [facility] [address] [place] [address] 08/28/2024 Julian Cummings Attention-deficit hyperactivity disorder, combined type F90.2 [facility], [facility] [address] [place] [address] 09/03/2024 Julian Cummings [facility], [facility] [address] [place] [address] 10/31/2024 Julian Cummings [facility], [facility] [address] [place] [address] 01/07/2025 Julian Cummings [facility], [facility] [address] [place] [address] 01/21/2025 Julian Cummings [facility] [address] [place] [address] 06/13/2024 Julian Cummings Attention-deficit hyperactivity disorder, combined type F90.2 [facility] [address] [place] [address] 10/31/2024 Julian Cummings Attention-deficit hyperactivity disorder, combined type F90.2 [facility] [address] [place] [address] 10/31/2024 Julian Cummings Attention-deficit hyperactivity disorder, combined type F90.2 Assessments Encounter Date Diagnosis (ICD Code) Assessment Notes Treatment Notes Treatment Clinical Notes Section Notes 08/28/2024 Attention-defic it hyperactivity disorder, combined type (ICD-10 - F90.2) 03/13/2024 Attention-defic it hyperactivity disorder, combined type (ICD-10 - F90.2) 12/06/2024 Encounter for screening for cardiovascular disorders (ICD-10 - Z13.6) 01/07/2025 Encounter for screening for cardiovascular disorders (ICD-10 - Z13.6) 10/31/2024 Attention-defic it hyperactivity disorder, combined type (ICD-10 - F90.2) 10/31/2024 Attention-defic it hyperactivity disorder, combined type (ICD-10 - F90.2) 06/13/2024 Attention-defic it hyperactivity disorder, combined type (ICD-10 - F90.2) 06/13/2024 Attention-defic it hyperactivity disorder, combined type (ICD-10 - F90.2) 09/26/2024 Attention-defic it hyperactivity disorder, combined type (ICD-10 - F90.2) 1. Depression: - Patient reports feeling more depressed over the last 6 months. - Currently on Cymbalta 30 mg twice daily and Vraylar 3 mg. 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 02/19/2025 Encounter for screening for cardiovascular disorders (ICD-10 - Z13.6) 03/27/2024 Attention-defic it hyperactivity disorder, combined type (ICD-10 - F90.2) [...] to medications and overall mental health status. 06/27/2024 Attention-defic it hyperactivity disorder, combined type (ICD-10 - F90.2) [...] twice daily and Vraylar 3 mg. 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 02/19/2025 Encounter for screening for depression (ICD-10 - Z13.31) 03/27/2024 Bipolar disorder, current episode depressed, moderate [...] screening for depression (ICD-10 - Z13.31) 12/06/2024 Encounter for screening for depression (ICD-10 [...] for taking medications, especially when on methylphenidate. 12/06/2024 Attention-defic it hyperactivity disorder, combined type (ICD-10 - F90.2) 01/07/2025 Attention-defic it hyperactivity disorder, combined type (ICD-10 - F90.2) 02/19/2025 Attention-defic it hyperactivity disorder, combined type (ICD-10 - F90.2) 02/19/2025 Bipolar disorder, current episode depressed, moderate (ICD-10 - F31.32) 01/07/2025 Bipolar disorder, current episode depressed, moderate (ICD-10 - F31.32) Electronic Prior Authorization was requested for Caplyta 21 MG Capsule. Provider can order medication once approval received. 12/06/2024 Bipolar disorder, current episode depressed, moderate (ICD-10 - F31.32) Electronic Prior Authorization was requested for Caplyta 21 MG Capsule. Provider can order medication once approval received. 02/19/2025 Other Lamotrigine Lamotrigine has a serious rash requiring hospitalization and discontinue treatment including Ahsan Galen syndrome rare case of toxic epidermal necrolysis and cache related deaths. Incidence with adjunct of epilepsy treatment 0.8% in 2 to 16 years old and 0.3% in adults, bipolar and other mood disorders incidence 0.8% this initial monotherapy and 0.13% as adjunctive treatment. Other risk factor may include concomitant use of valproate acid derivative or exceeding initial lamotrigine does or does as clinician recommendation; most life-threatening rash of occurring first 2 to 8 weeks of treatment with isolated cases after prolonged treatment; though benign may occur, discontinue treatment at first sign of rash unless clearly not a drug related; TC treatment may not prevent trash from becoming life-threatening or permanently disabling or disfiguring. Comment reaction include, nausea/vomiting, dizziness/vertigo , visual disturbances, somnolence, ataxia, pruritus/rash, pharyngitis, headache, rhinitis, diarrhea, fever, asthenia, insomnia, tremor, abdominal pain, cough, accidental injury, constipation, dysmenorrhea, incoordination, anxiety, seizures, irritability, anorexia, xerostomia, and photosensitivity. Serious reactions include: Rash, severe; Reyes Galen syndrome; toxic epidermal necrosis; injury edema, hypersensitivity reactions. Including fatal, multiple organ failure to safe fatal, rash with eosinophilia systemic symptoms, DIC, neutropenia, leukopenia, thrombocytopenia, pancytopenia, aplastic anemia, hemolytic anemia, i pancreatitis, hepatic failure, rhabdomyolysis, worsening of suicidal ideation, worsening of depression, cleft lip/palate [first trimester use] DO not Change Cosmetic, perfumes or soap for next 4 weeks. The patient was advice to take lamotrigine as prescribed the patient was instructed not to deviate from the prescription dosages. Stop lamotrigine is the first sign of rash. Patient was instructed to contact the office if any of the serious side effect develops. 12/06/2024 Anitra Parra presents with worsening depressive [...] Treatment Next Appt Details Provider Name:Julian shaw, 03/29/2025 02:00:00 PM, [address], [address], [place], [address], Insurance Providers Payer Name Payer Address Payer Phone Subscriber Number Group Number Insured Name Patient Relationship to Insured Coverage Start Date Coverage End Date [employer] [address] [place] [phone] [id number] IZABELA PARRA Self - patient is the insured Medicaid-[place] [address] [address] [place] [address] [id number] IZABELA PARRA Self - patient is the insured Medical (General) History Medical History History ICD Code Problems: Attention deficit hyperactivit y disorder, combined type Bipolar affective disorder, current epis ode depression , Surgical History Surgery Date(Month/Year) Other 09/19/1998 Hysterectomy (39045) 09/19/1999 Removal of gallbladder (70656) 1 Any surgical history 09/19/2009 Appendectomy (84285) 09/20/1993
--- OUTSIDE RECORDS SUMMARY | 2025-02-19 21:47 | XMS_ITS | Clinical Summary ---
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 Name Role Phone Radha Kaminski Primary Care Provider [phone] Allergies Active Allergy Reactions Criticality Noted Date Comments Prochlorperazine Other (see comments),Shortness of breath High 11/26/2016 Lockjaw Lockjaw Medications aspirin ([facility] [place]LEY) 81 MG EC tablet Take 81 mg by mouth daily Active buPROPion XL (WELLBUTRIN XL) 150 MG 24 hr tablet 2 Active Cholecalciferol (Vitamin D3) 1.25 MG (25662 UT) capsule Twice a week 2 Active [...] Comments Influenza Vaccine (Season Ended) [address] [place] [address] [place] [address] Care Teams Skiing Teacher Relationship Specialty Start Date End Date Radha Kaminski [facility] [place] [id number] PCP - General Family Medicine 06/21/22
--- OUTSIDE RECORDS SUMMARY | 2025-02-19 21:47 | XMS_ITS | Data Portability ---
Author Organization [facility] OFFICE Address [address] [place] [address] Assessment Encounter Date Assessment Date Assessment LastModified [...] current medications, and medical follow-up as noted. [email or web address] Not available 02/03/2022 11:19:05 03/03/2022 03/03/2022 Discussed with patient findings, diagnosis, and prognosis. Discussed evaluation and treatment options including risks and benefits with patient, and patient expressed understanding. The following interventions were recommended: heart healthy low-fat, low-sodium diet, continue regular exercise,maintain appropriate weight, continue current medications, and medical follow-up as noted. [email or web address] Not available 03/03/2022 17:54:51 05/05/2022 05/05/2022 Discussed with patient findings, diagnosis, and prognosis. Discussed evaluation and treatment options including risks and benefits with patient, and patient expressed understanding. The following interventions were recommended: heart healthy low-fat, low-sodium diet, continue regular exercise,maintain appropriate weight, continue current medications, and medical follow-up as noted. [email or web address] Not available 05/05/2022 15:03:06 10/27/2022 10/27/2022 Discussed with patient findings, diagnosis, and prognosis. Discussed evaluation and treatment options including risks and benefits with patient, and patient expressed understanding. The following interventions were recommended: heart healthy low-fat, low-sodium diet, continue regular exercise,maintain appropriate weight, continue current medications, and medical follow-up as noted. [email or web address] Not available 10/27/2022 12:40:07 01/05/2023 01/05/2023 Discussed with patient findings, diagnosis, and prognosis. Discussed evaluation and treatment options including risks and benefits with patient, and patient expressed understanding. The following interventions were recommended: heart healthy low-fat, low-sodium diet, continue regular exercise,maintain appropriate weight, continue current medications, and medical follow-up as noted. [email or web address] Not available 01/05/2023 14:29:08 Plan of Treatment Reminders Order Date Submit Date Provider Last Modified By Organization Details Last Modified Time Details Appointments None recorded. Lab None recorded. Referral None recorded. Procedures None recorded. Surgeries None recorded. Imaging None recorded. Medication Orders rosuvastati n 20 mg tablet 2021 [facility], [address] [place] [address], [address], 17:57:13 magnesium oxide 400 mg (241.3 mg magnesium) tablet 2021 022 [email or web address] [facility], [address] [place] [address], [address], 11:14:53 atorvastati n 80 mg tablet 2021 022 [email or web address] [facility], [address] [place] [address], [address], 17:40:55 icosapent ethyl 1 gram capsule 2021 022 [facility], [address] [place] [address], [address], 11:47:50 Patient TargetsNo targets recorded. Patient Instructions Encounter Date Encounter Id Patient Instructions Last Modified By Organization Details Last Modified Time 02/03/2022 [id number] dizziness: care instructions [email or web address] Not available 02/03/2022 11:47:45 leg and ankle edema: care instructions [email or web address] Not available 02/03/2022 11:47:46 high blood pressure: care instructions [email or web address] Not available 02/03/2022 11:47:45 learning about high blood pressure [email or web address] Not available 02/03/2022 11:47:46 aortic valve regurgitation: care instructions [email or web address] Not available 02/03/2022 11:47:45 03/03/2022 [id number] leg and ankle edema: care instructions [email or web address] Not available 03/03/2022 17:57:11 dizziness: care instructions [email or web address] Not available 03/03/2022 17:57:11 high blood pressure: care instructions [email or web address] Not available 03/03/2022 17:57:11 learning about high blood pressure [email or web address] Not available 03/03/2022 17:57:11 aortic valve regurgitation: care instructions [email or web address] Not available 03/03/2022 17:57:11 05/05/2022 [id number] leg and ankle edema: care instructions [email or web address] Not available 05/05/2022 15:19:08 dizziness: care instructions Not available 05/05/2022 15:19:08 high blood pressure: care instructions [email or web address] Not available 05/05/2022 15:19:08 learning about high blood pressure [email or web address] Not available 05/05/2022 15:19:08 aortic valve regurgitation: care instructions [email or web address] Not available 05/05/2022 15:19:08 10/27/2022 [id number] leg and ankle edema: care instructions [email or web address] Not available 10/27/2022 12:49:16 dizziness: care instructions [email or web address] Not available 10/27/2022 12:49:16 high blood pressure: care instructions Not available 10/27/2022 12:49:16 learning about high blood pressure Not available 10/27/2022 12:49:16 aortic valve regurgitation: care instructions [email or web address] Not available 10/27/2022 12:49:16 01/05/2023 [id number] leg and ankle edema: care instructions [email or web address] Not available 01/05/2023 14:34:19 dizziness: care instructions [email or web address] Not available 01/05/2023 14:34:18 high blood pressure: care instructions [email or web address] Not available 01/05/2023 14:34:19 learning about high blood pressure [email or web address] Not available 01/05/2023 14:34:18 aortic valve regurgitation: care instructions [email or web address] Not available 01/05/2023 14:34:18 Reason for Referral [...] observ ation record ed. [facility] [address] [place] [address] [address], [place], [address], 02/23/2022 09:20:36 02/19/20 22 02/10/2022 US, echoc [...] 234. 02/18/22:PT 12.8,INR 1.0,aPTT 24. Alyssa kolb [place] - [facility] 07/07/2022 18:09:35 Covid-19 Counseling* : 02/17/22: Not detected Alyssa kolb [place] - [facility] 07/07/2022 18:26:45 Problems Name Problem SNOMED Code Status Onset Date Resolution Date Notes Provider Name and Address Organization Details Recorded Time Aortic valve regurgitati on 34498758 Active 2021 Adan kolb [facility] 2 16:09:41 Coronary arterioscle rosis 01135667 Active 2021 Adan kolb [facility] 2 17:36:49 Pre-surgery evaluation Active 2021 Adan kolb [place] - [facility] 2 17:51:16 Anxiety 37193874 Active 2016 Maty kolb [facility] 7 16:38:50 Depressive disorder 40515068 Active 2016 Maty kolb [facility] 7 16:38:57 Diabetes mellitus 18963748 Active 2016 Maty kolb [facility] 7 16:39:04 Essential hypertensio n 77409637 Active 2016 Adan kolb [facility] 7 17:47:48 History of obesity 133263327 Active 2016 Elissa kolb [facility] 7 14:54:52 Atypical chest pain 027516261 Active 2016 Elissa kolb [facility] 7 14:55:31 Dyslipidemi a 029226538 Active 2016 Elissa Mcnair [facility] 7 14:55:41 Hypercholes terolemia 10089345 Active 2016 Elissa Mcnair [facility] 7 14:56:07 Tachycardia 4302450 Active 2016 Adan Dobbins [facility] 7 13:42:11 Pain in bilateral legs 1447710856208 9108 Active 2017 Adan Dobbins [facility] 8 14:26:05 Dizziness 367326845 Active 2017 Adan Dobbins [facility] 8 18:15:46 Edema of lower extremity 471896639 Active 2018 Shah Mesleni [facility] 9 12:16:31 Problem Notes None recorded. Procedures Surgical History Date Name Laterality Status Provider Name and Address Organization Details Recorded Time Hysterectomy completed [facility] 06/16/2017 16:39:23 Back Surgery completed [facility] 06/16/2017 16:39:34 Knee arthroscopy/surge ry completed [facility] 06/16/2017 16:39:53 Appendectomy completed [facility] 06/16/2017 16:40:10 Imaging Results None recorded. Procedure Notes None recorded. Medical Equipment None Reported. Allergies Allergen ID Allergen Name Allergen Category Reaction Reaction Severity Criticality Documentation Date Start Date Code Code System Note Provider Name and Address Organization Details Recorded Time 99510 lisinopri l medicatio n confusion Not available unabletoasse 01/05/2023 79577 RxNorm Adan Dobbins [facility] 3 14:28:45 5287 prochlorp erazine medicatio n Not available Not available Not available 07/03/2017 8704 RxNorm Elissa Mcnair [facility] 7 14:54:13 Medications Name Sig Start Date [...] Not Available ibuprofen 800 mg tablet prn 10/27 completed Not Available Not Available Not Available metoprolo l succinate ER 50 mg tablet,ex tended release 24 hr Take 1 tablet every day by oral route. 08/08 completed per daquan kilpatrick upped doseage Not Available Not Available Not [...] e 50 mcg/actua tion nasal spray,[employer] pension [place] 1 spray twice a day by intranas [...] Updated DateTime 3 170.18 cm 32 kg/m2 92365.8 4 g 74 /min 16 /min 96 % 96 % 122 mm[Hg] 82 mm[Hg] Ministerio PHILLIPS - [facility] 3 11:48:12 Date Recorded Body height Body mass index (BMI) Body weight Heart rate Respiratory rate Oxygen saturation Oxygen saturation in Arterial blood by Pulse oximetry Systolic blood pressure Diastolic blood pressure Provider Name and Address Organization Details Last Updated DateTime 3 170.18 cm 29.6 kg/m2 67564.9 6 g 91 /min 16 /min 97 % 97 % 124 mm[Hg] 82 mm[Hg] Ministerio Arrieta [facility] 3 14:08:15 Date Recorded Body height Body mass index (BMI) Body weight Oxygen saturation Oxygen saturation in Arterial blood by Pulse oximetry Systolic blood pressure Diastolic blood pressure Provider Name and Address Organization Details Last Updated DateTime 2 170.18 cm 34.9 kg/m2 806433. 1 g 99 % 99 % 122 mm[Hg] 78 mm[Hg] Ministerio Arrieta [facility] 2 11:02:47 Date Recorded Heart rate Provider Name an d Address Organization Details Last Updated DateTime 02/03/2022 81 /min Adan Dobbins [facility] 02/03/2022 11:45:58 Date Recorded Body height Body mass index (BMI) Body weight Heart rate Oxygen saturation Oxygen saturation in Arterial blood by Pulse oximetry Systolic blood pressure Diastolic blood pressure Provider Name and Address Organization Details Last Updated DateTime 2 170.18 cm 36 kg/m2 964289. 25 g 100 /min 94 % 94 % 122 mm[Hg] 76 mm[Hg] Ministerio Arrieta [facility] 2 15:45:20 Date Recorded Body height Body mass index (BMI) Body weight Heart rate Respiratory rate Oxygen saturation Oxygen saturation in Arterial blood by Pulse oximetry Systolic blood pressure Diastolic blood pressure Provider Name and Address Organization Details Last Updated DateTime 2 170.18 cm 36.8 kg/m2 985468. 21 g 89 /min 16 /min 95 % 95 % 120 mm[Hg] 72 mm[Hg] Ministerio Arrieta [facility] 2 14:26:37 Social History Question Answer Notes LastModified by Organizat ion Details LastModified Time Tobacco Smoking Status Former Smoker Not Available [facility] 07/22/2020 03:30:40 What Type Of Diet Are You Following? REGULAR [id number] Information not available 07/22/2020 What Was The Date Of Your Most Recent Tobacco Screening? 11/08/2018 [id number] Information not available 07/22/2020 Sex: Unknown Functional Status Question Answer Note LastModified by Organization D etails LastModified Time What is your level of alcohol consumption? None [id number] Information not available 07/22/2020 Mental Status None recorded. Family History Relationship [...] available 06/16 16:46:07 Mother Myocardial infarction 46 [email or web address] Not available 06/16 17:50:10 Medical History Condition Response Depression Y Diabetes Y Hyperlipidemia Y Hypertension Y Gynecological HistoryNo gynecological history recorded. Obstetrics History GPAL:G 0 P 0 0 0 0 Past Encounters Encounter ID Performer Location Encounter Start Date Encounter Closed Date Diagnosis/Indication Diagnosis SNOMED-CT Code Diagnosis ICD10 Code Diagnosis Note [id number] MD Tara Luciano Office [address] [facility] [place] [address] 06/16/2017 16:32:06 06/17/2017 13:04:31 Chest pain 66000530 R07.9 Atypical. Stable. May be related to increased BP. Had echo 06/14/17: normal LV systolic function, mild LVH, EF 57%, mild AI. Had exercise nuclear test 06/14/17: below average exercise capacity, no ischemia, LVEF >70%. Diabetes mellitus 501638 09 E11.59 Discussed importance of tight glycemic control to minimize cardiovasc ular disease progressio n. Essential hypertension 91646515 I10 Newly diagnosed. Patient's blood pressure is not well-contr olled on present medical therapy. Patient is tolerating , without difficulty , the current medication s. I have made the following changes to the current regimen. Patient is advised to maintain a blood pressure diary. Patient was advised to eat a low-sodium diet (2 grams sodium or less daily). Began metoprolol succinate 50 mg qd 06/16/17. [id number] Adan Dobbins MD [facility] [address] [place] [address] 07/04/2017 12:07:40 07/05/2017 09:37:07 Essential hypertension 42885959 I10 Newly diagnosed. Patient's blood pressure is well-contr olled on present medical therapy. Patient is tolerating , without difficulty , the current medication s. I have made the following changes to the current regimen. Patient is advised to maintain a blood pressure diary. Patient was advised to eat a low-sodium diet (2 grams sodium or less daily). Began metoprolol succinate 50 mg qd 06/16/17 for improved BP control with elevated resting HR. Chest pain 37048664 R07. 9 Atypical. Improved. May be related to increased BP. Had echo 06/14/17: normal LV systolic function, mild LVH, EF 57%, mild AI. Had exercise nuclear test 06/14/17: below average exercise capacity, no ischemia, LVEF >70%. Diabetes mellitus 983655 09 E11.59 Discussed importance of tight glycemic control to minimize cardiovasc ular disease progressio n. Hypercholesterolemia 136 90157 E78.2 Needs to keep LDL less than 70, and HDL more than 40. Began atorvastat in 20 mg qHS 07/04/17. FLP 4 wks. Tachycardia 2968358 R00. 0 Follow on metoprolol . Obtain TSH. D-dimer normal 06/14/17. [id number] Adan Dobbins MD [facility] [address] [place] [address] 08/15/2017 11:58:15 08/16/2017 10:27:57 Essential hypertension 21008441 I10 Newly diagnosed. Pt reports elevated BP at home. Patient's blood pressure is not well-contr olled on present medical therapy. Patient is tolerating , without difficulty , the current medication s. I have made the following changes to the current regimen. Patient is advised to maintain a blood pressure diary. Patient was advised to eat a low-sodium diet (2 grams sodium or less daily). On metoprolol succinate 100 mg qd since 08/09/17 for improved BP control with elevated resting HR. Began amlodipine 5 mg qd 08/15/17. Chest pain 79678954 R07. 9 Atypical. Intermitte nt and nonexertio nal. May be related to increased BP. Had echo 06/14/17: normal LV systolic function, mild LVH, EF 57%, mild AI. Had exercise nuclear test 06/14/17: below average exercise capacity, no ischemia, LVEF >70%. Hypercholesterolemia 136 44107 E78.2 Needs to keep LDL less than 70, and HDL more than 40. Began atorvastat in 20 mg qHS 07/04/17. FLP 4 wks. later with LDL 68. Diabetes mellitus E11.59 Discussed importance of tight glycemic control to minimize cardiovasc ular disease progressio n. Tachycardia 9842343 R00. 0 Improved on metoprolol . Obtain TSH. D-dimer normal 06/14/17. [id number] Adan Dobbins MD [facility] [address] [place] [address] 09/07/2017 14:31:18 09/08/2017 12:52:38 Essential hypertension 45008116 I10 Newly diagnosed. Patient's blood pressure is not well-contr olled at home# well -controlle d somewhat well-contr olled not well-contr olled on present medical therapy. Patient is tolerating , without difficulty , the current medication s. I have made the following changes to the current regimen. Patient is advised to maintain a blood pressure diary. Patient was advised to eat a low-sodium diet (2 grams sodium or less daily). On metoprolol succinate 100 mg bid since 08/08/17 for improved BP control with elevated resting HR. Changed to metoprolol succinate 200 mg qd 09/07/17.I ncreased to amlodipine 10 mg qd 09/07/17. Chest pain 07878214 R07. 9 Atypical. Improved. Intermitte nt and nonexertio nal. May be related to increased BP. Had echo 06/14/17: normal LV systolic function, mild LVH, EF 57%, mild AI. Had exercise nuclear test 06/14/17: below average exercise capacity, no ischemia, LVEF >70%. Hypercholesterolemia 136 72389 E78.2 Needs to keep LDL less than 70, and HDL more than 40. Began atorvastat in 20 mg qHS 07/04/17. FLP 4 wks. later with LDL 68. Diabetes mellitus 4543632110 05 E11.59 Discussed importance of tight glycemic control to minimize cardiovasc ular disease progressio n. Follows with endo. Tachycardia 2689871 R00. 0 Improved on metoprolol . Obtained TSH 2.42, normal, 08/19/17. D-dimer normal 06/14/17. MD Tara Luciano Office [id number] [facility] [place] [place] [address] 10/18/2017 12:51:02 10/18/2017 14:59:51 Essential hypertension 82430071 I10 Newly diagnosed. Patient's blood pressure is not well-contr olled at home# well -controlle d somewhat well-contr olled not well-contr olled on present medical therapy. Patient is tolerating , without difficulty , the current medication s. I have made the following changes to the current regimen. Patient is advised to maintain a blood pressure diary. Patient was advised to eat a low-sodium diet (2 grams sodium or less daily). On metoprolol succinate 100 mg bid since 08/08/17 for improved BP control with elevated resting HR. Changed to metoprolol succinate 200 mg qd 09/07/17.I ncreased to amlodipine 10 mg qd 09/07/17. Began lisinopril 10 mg qd 10/18/17. BMP/Mg in 3wks. Chest pain 14909953 R07. 9 Atypical. Improved. Intermitte nt and nonexertio nal. May be related to increased BP. Had echo 06/14/17: normal LV systolic function, mild LVH, EF 57%, mild AI. Had exercise nuclear test 06/14/17: below average exercise capacity, no ischemia, LVEF >70%. Hypercholesterolemia 136 70491 E78.2 Needs to keep LDL less than 70, and HDL more than 40. Began atorvastat in 20 mg qHS 07/04/17. FLP 4 wks. later with LDL 68. Diabetes mellitus 795834 E11.59 Discussed importance of tight glycemic control to minimize cardiovasc ular disease progressio n. Follows with endo. Tachycardia 2628179 R00. 0 Improved on metoprolol . Obtained TSH 2.42, normal, 08/19/17. D-dimer normal 06/14/17. Pain in bi lateral legs 9971751066 4481497 M79.604 Obtain ABIs. [id number] Adan Dobbins MD [facility] [place] [address] 12/05/2017 12:29:25 12/13/2017 09:36:55 Essential hypertension 47338352 I10 Newly diagnosed. Patient's blood pressure is well-contr olled on present medical therapy. Patient is tolerating , without difficulty , the current medication s. I have not made changes to the current regimen. Patient is advised to maintain a blood pressure diary. Patient was advised to eat a low-sodium [...] at 1.4. Began MgOxide daily. Chest pain 01538049 R07. 9 Atypical. Improved. Intermitte nt and non-exerti onal. May be related to increased BP. Had echo 06/14/17: normal LV systolic function, mild LVH, EF 57%, mild AI. Had exercise nuclear test 06/14/17: below average exercise capacity, no ischemia, LVEF >70%. Hypercholesterolemia 136 18717 E78.2 Needs to keep LDL less than 70, and HDL more than 40. Began Atorvastat in 20 mg qHS 07/04/17. LDL 68 08/08/17. Diabetes mellitus 125184 09 E11.59 Discussed importance of tight glycemic control to minimize cardiovasc ular disease progressio n. Follows with endo. Tachycardia 7424444 R00. 0 Improved but intermitte nt palpitatio ns on Metoprolol . Obtained TSH 2.42, normal, 08/19/17. D-dimer normal 06/14/17. Pain in bi lateral legs 9332858217 4446971 M79.604 Had Normal ankle-brac hial index done in 10/26/17. Palpitations 73872057 R0 0.2 Obtain 24 hr Holter monitor to rule out arrhythmia . Had low Mg 1.4 11/18/17.Beg an Mg Oxide 400mg qd 12/05/17. Had 08/19/17 TSH 2.420. [id number] Adan Dobbins MD [facility] [address] [place] [address] 01/16/2018 16:11:38 01/17/2018 13:04:24 Essential hypertension 71661205 I10 Newly diagnosed. Patient's blood pressure is well-contr olled on present medical therapy. Patient is tolerating , without difficulty , the current medication s. I have not made changes to the current regimen. Patient is advised to maintain a blood pressure diary. Patient was advised to eat a low-sodium [...] at 1.4. Began MgOxide daily 11/2017. Palpitations 42576603 R0 0.2 Less frequent but still symptomati c since began Mg Oxide. Obtain Cardea Monitor for 7 days to rule out arrhythmia . Had low Mg 1.4 11/18/17. Began Mg Oxide 400 mg qd 12/05/17. Had 08/19/17 TSH 2.420. Chest pain 09187638 R07. 9 Atypical. Improved. Intermitte nt and non-exerti onal. May be related to increased BP. Had echo 06/14/17: normal LV systolic function, mild LVH, EF 57%, mild AI. Had exercise nuclear test 06/14/17: below average exercise capacity, no ischemia, LVEF >70%. Hypercholesterolemia 136 21915 E78.2 Needs to keep LDL less than 70, and HDL more than 40. Began Atorvastat in 20 mg qHS 07/04/17. LDL 68 08/08/17. Diabetes mellitus 499789 09 E11.59 Discussed importance of tight glycemic control to minimize cardiovasc ular disease progressio n. Follows with endo. Tachycardia 9865668 R00. 0 Improved but intermitte nt palpitatio ns on Metoprolol . Obtained TSH 2.42, normal, 08/19/17. D-dimer normal 06/14/17. Pain in bi lateral legs 5966048908 5139630 M79.604 Had Normal ankle-brac hial index done in 10/26/17. [id number] Adan Dobbins MD [facility] [address] [place] [address] 01/23/2018 16:55:19 01/24/2018 13:43:48 Essential hypertension 52720812 I10 Newly diagnosed. Patient's blood pressure is well-contr olled on present medical therapy. Patient is tolerating , without difficulty , the current medication s. I have not made changes to the current regimen. Patient is advised to maintain a blood pressure diary. Patient was advised to eat a low-sodium [...] reflux study if LE edema recurs. Palpitations 62913550 R0 0.2 Less frequent but still symptomati c since began Mg Oxide. Obtain Cardea Monitor for 7 days to rule out arrhythmia . Had low Mg 1.4 on 11/18/17. Began Mg Oxide 400 mg qd 12/05/17. Had 08/19/17 TSH 2.420. Chest pain 81458720 R07. 9 Atypical. Improved. Intermitte nt and non-exerti onal. May be related to increased BP. Had echo 06/14/17: normal LV systolic function, mild LVH, EF 57%, mild AI. Had exercise nuclear test 06/14/17: below average exercise capacity, no ischemia, LVEF >70%. Hypercholesterolemia 136 24407 E78.2 Needs to keep LDL less than 70, and HDL more than 40. Began Atorvastat in 20 mg qHS 07/04/17. LDL 68 on 11/20/17. Diabetes mellitus 094422 09 E11.59 Discussed importance of tight glycemic control to minimize cardiovasc ular disease progressio n. Follows with endo. Tachycardia 2681330 R00. 0 Improved but intermitte nt palpitatio ns on Metoprolol . Obtained TSH 2.42, normal, 08/19/17. D-dimer normal 06/14/17. Pain in bi lateral legs 1452553328 9416454 M79.604 Had Normal ankle-brac hial index done in 10/26/17. Edema of l ower extremity 770266994 R60.0 Improved. Started on HCTZ 12.5 mg 01/20/18. Had negative Venous Doppler for DVT on 01/20/18. [id number] Adan Dobbins MD [facility] [place] [address] 02/15/2018 16:48:28 02/15/2018 19:04:08 Essential hypertension 26560724 I10 Patient's blood pressure is well-contr olled on present medical therapy. Patient is tolerating , without difficulty , the current medication s. I have not made changes to the current regimen. Patient is advised to maintain a blood pressure diary. Patient was advised to eat a low-sodium [...] reflux study if LE edema recurs. Palpitations 91044363 R0 0.2 Less frequent but still symptomati [...] 1.5. Had 08/19/17 TSH 2.420. Chest pain 71239526 R07. 9 Atypical. Improved. Intermitte nt and non-exerti onal. Had echo 06/14/17: normal LV systolic function, mild LVH, EF 57%, mild AI. Had exercise nuclear test 06/14/17: below average exercise capacity, no ischemia, LVEF >70%. Hypercholesterolemia 136 24844 E78.2 Needs to keep LDL less than 70, and HDL more than 40. Began Atorvastat in 20 mg qHS 07/04/17. LDL 68 on 08/08/17. Diabetes mellitus 110031 09 E11.59 Discussed importance of tight glycemic control to minimize cardiovasc ular disease progressio n. Follows with endo. Tachycardia 0897281 R00. 0 Improved but intermitte nt palpitatio ns on Metoprolol . Obtained TSH 2.42, normal, 08/19/17. D-dimer normal 06/14/17. Pain in bi lateral legs [id number] 6835306 M79.604 Had Normal ankle-brac hial index done in 10/26/17. Edema of l ower extremity 653473251 R60.0 Improved. Started on HCTZ 12.5 mg 01/20/18 with resolution of edema but with increased Cr, prompting cessation of hydrochlor othiazide Feb 15 2018. Had negative Venous Doppler for DVT on 01/20/18. Dizziness 108590527 R42 Obtain carotid U/S. Stopped HCTZ given increased BUN and Cr. [id number] David Hancock MD [place] [facility] [place] [address] 03/15/2018 16:30:20 03/23/2018 18:34:33 Essential hypertension 26122061 I10 Patient's blood pressure is well-contr olled on present medical therapy. Patient is tolerating , without difficulty , the current medication s. I have not made changes to the current regimen. Patient is advised to maintain a blood pressure diary. Patient was advised to eat a low-sodium [...] reflux study if LE edema recurs. Palpitations 57012015 R0 0.2 Less frequent but still symptomati [...] 1.5. Had 08/19/17 TSH 2.420. Chest pain 02788679 R07. 9 Atypical. Improved. Intermitte nt and non-exerti onal. Had echo 06/14/17: normal LV systolic function, mild LVH, EF 57%, mild AI. Had exercise nuclear test 06/14/17: below average exercise capacity, no ischemia, LVEF >70%. Hypercholesterolemia 136 12909 E78.2 Needs to keep LDL less than 70, and HDL more than 40. Began Atorvastat in 20 mg qHS 07/04/17. LDL 68 on 08/08/17. Diabetes mellitus 991444 09 E11.59 Discussed importance of tight glycemic control to minimize cardiovasc ular disease progressio n. Follows with endo. Tachycardia 5839150 R00. 0 Improved but intermitte nt palpitatio ns on Metoprolol . Obtained TSH 2.42, normal, 08/19/17. D-dimer normal 06/14/17. Pain in bi lateral legs [id number] 6173613 M79.604 Had Normal ankle-brac hial index done in 10/26/17. Edema of l ower extremity 627938104 R60.0 Improved. Started on HCTZ 12.5 mg 01/20/18 with resolution of edema but with increased Cr, prompting cessation of hydrochlor othiazide Feb 15 2018. Had negative Venous Doppler for DVT on 01/20/18. Dizziness 258361335 R42 Obtain carotid U/S. Stopped HCTZ given increased BUN and Cr. [id number] David Hancock MD [place] [facility] [place] [address] 05/29/2018 10:46:20 06/13/2018 02:43:29 Essential hypertension 62016148 I10 Patient's blood pressure is well-contr olled on present medical therapy. Patient is tolerating , without difficulty , the current medication s. I have not made changes to the current regimen. Patient is advised to maintain a blood pressure diary. Patient was advised to eat a low-sodium [...] reflux study if LE edema recurs. Palpitations 34710327 R0 0.2 More frequent the last 1 [...] 1.5. Had 05/25/18 TSH 2.330 Chest pain 19917346 R07. 9 Atypical. Improved. Intermitte nt and non-exerti onal. Had echo 06/14/17: normal LV systolic function, mild LVH, EF 57%, mild AI. Had exercise nuclear test 06/14/17: below average exercise capacity, no ischemia, LVEF >70%. Hypercholesterolemia 136 16291 E78.2 Needs to keep LDL less than 70, and HDL more than 40. Began Atorvastat in 20 mg qHS 07/04/17. Increased Atorvastat in to 40 mg once daily 05/29/18. LDL was 131 on 05/25/18 Will start Fish Oil 1000 mg twice daily for TG 258. Diabetes mellitus 144041 09 E11.59 Discussed importance of tight glycemic control to minimize cardiovasc ular disease progressio n. Follows with endo. Tachycardia 1714349 R00. 0 Improved but intermitte nt palpitatio ns on Metoprolol 200 mg qd. Had 05/25/18 TSH 2.330. Pain in bi lateral legs [id number] 6934098 M79.604 Had Normal ankle-brac hial index done in 10/26/17. Edema of l ower extremity 967014413 R60.0 Improved. Started on HCTZ 12.5 mg 01/20/18 with resolution of edema but with increased Cr, prompting cessation of hydrochlor othiazide Feb 15 2018. Had negative Venous Doppler for DVT on 01/20/18. Dizziness 816767228 R42 Intermitte nt. Had Carotid US on 02/22/18 showing mild bilateral internal carotid artery stenosis with less than 60% diameter stenosis. Stopped HCTZ given increased BUN and Cr. Anxiety 19920372 F41.9 History of anxiety and currently going [...] agrees with the plan. All questions answered. [id number] David Hancock MD [place] [facility] [address] [place] [address] 07/04/2018 15:00:24 07/04/2018 15:33:37 Essential hypertension 38508462 I10 Well controlled today. Is not taking her medication s as prescribed . She stopped taking her medication s 1 week ago, Amlodipine 5 mg, Lisinopril 10 mg, Metoprolol 200 mg qd and Magnesium Oxide. Palpitations 54320807 R0 0.2 less frequent. Had [employer] 7 day monitor 01/23/2018 which demonstrat ed [...] TSH 2.330 07/06 stopped MagOxide Chest pain 72841841 R07. 9 Atypical. Improved. Intermitte nt and non-exerti onal. Had echo 06/14/17: normal LV systolic function, mild LVH, EF 57%, mild AI. Had exercise nuclear test 06/14/17: below average exercise capacity, no ischemia, LVEF >70%. Tachycardia 8624717 R00. 0 Improved but intermitte nt palpitatio ns on Metoprolol 200 mg qd. Had 05/25/18 TSH 2.330. Hypercholesterolemia 136 75920 E78.2 Needs to keep LDL less than 70, and HDL more than 40. Began Atorvastat in 20 mg qHS 07/04/17. Increased Atorvastat in to 40 mg once daily 05/29/18. LDL was 131 on 05/25/18 Will start Fish Oil 1000 mg twice daily for TG 258. Will repeat FLP before next visit. Diabetes mellitus 221211 09 E11.59 Discussed importance of tight glycemic control to minimize cardiovasc ular disease progressio n. Follows with endo. Pain in bi lateral legs 1087638009 5867055 M79.604 Had Normal ankle-brac hial index done in 10/26/17. Edema of l ower extremity 625869897 R60.0 Improved. Started on HCTZ 12.5 mg 01/20/18 with resolution of edema but with increased Cr, prompting cessation of hydrochlor othiazide Feb 15 2018. Had negative Venous Doppler for DVT on 01/20/18. Dizziness 779272984 R42 Intermitte nt. Had Carotid US on 02/22/18 showing mild bilateral internal carotid artery stenosis with less than 60% diameter stenosis. Stopped HCTZ given increased BUN and Cr. Anxiety 39623300 F41.9 History of anxiety and currently going [...] agrees with the plan. All questions answered. [id number] Adan Dobbins MD [place] [facility] [address] [place] [address] 11/08/2018 15:21:24 11/08/2018 17:38:34 Essential hypertension 35627127 I10 Well-contr olled today despite stopping all of her anti-hyper tensives on her own since 06/2018. She lost 23 lbs. since January 2018 and is more active. Is not taking her medication s as prescribed . She stopped taking her medication s 11/08/18: Amlodipine 5 mg, Lisinopril 10 mg, Metoprolol 200 mg qd and Magnesium Oxide. BP diary. Palpitations 37150847 R0 0.2 Less frequent. Had [employer] 7 day monitor 01/23/2018 which demonstrat ed [...] 1.5. Had 05/25/18 TSH 2.330 Chest pain 41115420 R07. 9 Atypical. Improved. Intermitte nt and non-exerti onal. Had echo 06/14/17: normal LV systolic function, mild LVH, EF 57%, mild AI. Had exercise nuclear test 06/14/17: below average exercise capacity, no ischemia, LVEF >70%. Tachycardia 8177772 R00. 0 Improved but intermitte nt palpitatio ns on Metoprolol 200 mg qd, which she self-disco ntinued. Had 05/25/18 TSH 2.330. Hypercholesterolemia 136 68247 E78.2 Needs to keep LDL less than 70, and HDL more than 40. Began Atorvastat in 20 mg qHS 07/04/17. Increased Atorvastat in to 40 mg once daily 05/29/18. LDL was 131 on 05/25/18 She stopped atorvastat in on her own 06/2018. Obtain FLP. Diabetes mellitus 720910 09 E11.59 Discussed importance of tight glycemic control to minimize cardiovasc ular disease progressio n. Follows with endo. Pain in bi lateral legs 2925130075 3813460 M79.604 Had Normal ankle-brac hial index done in 10/26/17. Edema of l ower extremity 312313154 R60.0 Improved. Started on HCTZ 12.5 mg 01/20/18 with resolution of edema but with increased Cr, prompting cessation of hydrochlor othiazide Feb 15 2018. Had poor liquid intake at that time. Had negative Venous Doppler for DVT on 01/20/18. Dizziness 962700851 R42 Intermitte nt. Improved. Had Carotid US on 02/22/18 showing mild bilateral internal carotid artery stenosis with less than 60% diameter stenosis. Needs repeat carotid U/S 02/2019. Stopped HCTZ given increased BUN and Cr. Anxiety 05984798 F41.9 Improved. History of anxiety and currently going through major life changes. [id number] Adan Dobbins MD [place] [facility] [address] [place] [address] 01/13/2022 14:02:40 01/13/2022 16:32:52 Essential hypertension 87377607 I10 Well-contr olled today despite stopping all of her anti-hyper tensives on her own since 06/2018. She lost 23 lbs. since January 2018 and is more active. Is not taking her medication s as prescribed . She stopped taking her medication s 11/08/18: Amlodipine 5 mg, Lisinopril 10 mg, Metoprolol 200 mg qd and Magnesium Oxide. BP diary. Palpitations 89819310 R0 0.2 Less frequent. Had Cardea 7 [...] 1.5. Had 05/25/18 TSH 2.330 Chest pain 75210973 R07. 9 Patient presents with chest pain with atypical features and exertional dyspnea which can be an anginal equivalent . Given the history, exam findings and intermedia te cardiac risk factors, I feel additional investigat ion is warranted. I have made arrangemen ts in the near future for an exercise stress nuclear test and an echocardio gram to evaluate for any ischemia or structural heart disease. The procedure was discussed with the patient, and risks, benefits, and alternativ e options were explained. Appropriat e labwork has not been performed recently, therefore I have made arrangemen ts for further testing: FLP, TSH, CBC, CMP, Mg. I have asked the patient to curtail exercise and activities until our investigat ion is complete. I have made the following adjustment s to the present medical regimen. Had echo 06/14/17: normal LV systolic function, mild LVH, EF 57%, mild AI. Had exercise nuclear test 06/14/17: below average exercise capacity, no ischemia, LVEF >70%. If stress test normal, consider stopping ASA. Tachycardia 6140888 R00. 0 Improved but intermitte nt palpitatio ns on Metoprolol 200 mg qd, which she self-disco ntinued. Had 05/25/18 TSH 2.330. Hypercholesterolemia 136 12367 E78.2 Needs to keep LDL less than 70, and HDL more than 40. Began Atorvastat in 20 mg qHS 07/04/17. Increased Atorvastat in to 40 mg once daily 05/29/18. LDL was 131 on 05/25/18 She stopped atorvastat in on her own 06/2018. Obtain FLP. Diabetes mellitus 772138 09 E11.59 Discussed importance of tight glycemic control to minimize cardiovasc ular disease progressio n. Follows with endo. Pain in bi lateral legs 9572176328 9259361 M79.604 Had Normal ankle-brac hial index done in 10/26/17. Edema of l ower extremity 359079773 R60.0 Intermitte nt. Started on HCTZ 12.5 mg 01/20/18 with resolution of edema but with increased Cr, prompting cessation of hydrochlor othiazide Feb 15 2018. Had poor liquid intake at that time. Had negative Venous Doppler for DVT on 01/20/18. Elevate legs.Compr ession stockings. Low Na diet. Consider HCTZ pending labs. Dizziness 304511744 R42 Intermitte nt. Improved. Had Carotid US on 02/22/18 showing mild bilateral internal carotid artery stenosis with less than 60% diameter stenosis. Needs repeat carotid U/S. Anxiety 53809391 F41.9 Improved. History of anxiety and currently going through major life changes. Aortic edita ve regurgitation 24622872 I35.1 Mild. Had 06/14/17 ECHO: Normal left ventricula r systolic function , no local well motion abnormalit ies, normal left ventricula r size , mild concentric left ventricula r hypertroph y, normal left ventricula r diastolic function, EF 57%, Mild aortic valve regurgitat ion. Obtain echo to evaluate for structural /functiona l disease. [id number] Adan Dobbins MD [place] [facility] [place] [address] 02/03/2022 10:46:00 02/03/2022 11:59:11 Aortic valve regurgitation 27400911 I35.1 Mild. Had 06/14/17 ECHO: Normal left ventricula r systolic function , no local well motion abnormalit ies, normal left ventricula r size , mild concentric left ventricula r hypertroph y, normal left ventricula r diastolic function, EF 57%, Mild aortic valve regurgitat ion. Obtain echo to evaluate for structural /functiona l disease. Essential hypertension 63862250 I10 Well-contr olled today despite stopping all of her anti-hyper tensives on her own since 06/2018. She lost 23 lbs. since January 2018 and is more active. Is not taking her medication s as prescribed . She stopped taking her medication s 11/08/18: Amlodipine 5 mg, Lisinopril 10 mg, Metoprolol 200 mg qd and Magnesium Oxide. BP diary. Dizziness 691560834 R42 Intermitte nt. Improved. Had Carotid US on 02/22/18 showing mild bilateral internal carotid artery stenosis with less than 60% diameter stenosis. Needs repeat carotid U/S. Pain in bi lateral legs 0621947135 7850517 M79.604 Had Normal ankle-brac hial index done in 10/26/17. Tachycardia 6520609 R00. 0 Improved but intermitte nt palpitatio ns on Metoprolol 200 mg qd, which she self-disco ntinued. Had 05/25/18 TSH 2.330. Anxiety 83700431 F41.9 Improved. History of anxiety and currently going through major life changes. Diabetes mellitus 296433 09 E11.59 Discussed importance of tight glycemic control to minimize cardiovasc ular disease progressio n. Follows with endo. Edema of l ower extremity 566089286 R60.0 Intermitte nt. Minimal. Started on HCTZ 12.5 mg 01/20/18 with resolution of edema but with increased Cr, prompting cessation of hydrochlor othiazide Feb 15 2018. Had poor liquid intake at that time. Had negative Venous Doppler for DVT on 01/20/18. Elevate legs.Compr ession stockings. Low Na diet. Consider HCTZ if edema increases. History of obesity 49155 3001 Z91.89 20 lb. weight loss recommende d over the next 2 months. Hypercholesterolemia 136 40993 E78.2 Needs to keep LDL less than [...] gm bid 02/03/22. Atypical chest pain 1025 78226 R07.89 Patient presents with chest pain with [...] . The patient agrees to proceed at [facility]. Had echo 06/14/17: normal LV systolic function, mild LVH, EF 57%, mild AI. Had exercise nuclear test 06/14/17: below average exercise capacity, no ischemia, LVEF >70%. Had 01/20/22 CMP-NA 138 K 4.0 CR 1.08 GL 106 CA 8.7 MAG 1.7 LIPID-TRIG 438 CHOL 265 LDL 137 HDL 39 CBC-WBC 8.9 RBC 4.32 HGB 13.8 HCT 39.3 PLT 234 Palpitations 18676555 R0 0.2 Less frequent. Had Cardea 7 [...] mg qd 12/05/17. Had 05/25/18 TSH 2.330 [id number] Adan Dobbins MD [facility] [address] [place] [address] 03/03/2022 15:38:56 03/03/2022 18:05:44 Aortic valve regurgitation 42379322 I35.1 Mild previously . Had US, echocardio [...] Mild aortic valve regurgitat ion. Essential hypertension 97228004 I10 Well-contr olled today despite stopping all of her anti-hyper tensives on her own since 06/2018. She lost 23 lbs. since January 2018 and is more active. Is not taking her medication s as prescribed . She stopped taking her medication s 11/08/18: Amlodipine 5 mg, Lisinopril 10 mg, Metoprolol 200 mg qd and Magnesium Oxide. BP diary. Dizziness 060126237 R42 Intermitte nt. Improved. Had US, carotid artery ( 2) Antegrade flow noted in both vertebral arteries. Mild bilateral internal carotid artery stenosis with less than 50% diameter stenosis. Had Carotid US on 02/22/18 showing mild bilateral internal carotid artery stenosis with less than 60% diameter stenosis. Needs repeat carotid U/S 02/2023. Pain in bi lateral legs 1237965507 2897521 M79.604 Had Normal ankle-brac hial index done in 10/26/17. Tachycardia 0127470 R00. 0 Improved but intermitte nt palpitatio ns on Metoprolol 200 mg qd, which she self-disco ntinued. Had 05/25/18 TSH 2.330. Anxiety 91854707 F41.9 Improved. History of anxiety and currently going through major life changes. Diabetes mellitus 506831 09 E11.59 Discussed importance of tight glycemic control to minimize cardiovasc ular disease alen sher. Follows with kayleen. Edema of mo [place] extremity 999304229 R60.0 Intermitte nt. Minimal. Started on HCTZ 12.5 mg 01/20/18 with resolution of edema but with increased Cr, prompting cessation of hydrochlor othiazide Feb 15 2018. Had poor liquid intake at that time. Had negative Venous Doppler for DVT on 01/20/18. Elevate legs.Compr ession stockings. Low Na diet. Consider HCTZ if edema increases. History of obesity 40599 3001 Z91.89 20 lb. weight loss recommende d over the next 2 months. Hypercholesterolemia 136 15132 E78.2 Needs to keep LDL less than [...] FLP 1 mo. Atypical chest pain 1025 99878 R07.89 Patient presents with chest pain with [...] HGB 13.8 HCT 39.3 PLT 234 Palpitations 17829752 R0 0.2 Less frequent. Had [employer] 7 day monitor 01/23/2018 which demonstrat ed [...] 12/05/17. Had 05/25/18 TSH 2.330 Coronary arteriosclerosis 98149961 I25.10 Mild-moder ate CAD. Had [facility] 02/18/22: mild to moderate CAD (40% stenosis mid LCx, LAD and RCA no significan t disease, RCA non-domina nt), normal LV systolic function, normal LVEDP. Continue ASA. Needs to keep LDL less than 70, and HDL more than 40. Pre-surger y evaluation 795236700 Z01.818 There is no cardiac contraindi cation for the procedure. The planned procedure would be within acceptable risk. Patient may stop taking aspirin and Plavix five (5) days prior to the procedure. Patient may stop taking aspirin five (5) days prior to the procedure. [id number] Adan Dobbins MD [place] [facility] [address] [place] [address] 05/05/2022 14:17:27 05/05/2022 15:27:04 Aortic valve regurgitation 94928932 I35.1 Mild previously . Had US, echocardio [...] Mild aortic valve regurgitat ion. Essential hypertension 34302437 I10 Well-contr olled with diet today despite [...] Oxide. BP diary. Obtain BMP, Mg. Dizziness 923891888 R42 Intermitte nt. Postural. Had US, carotid artery ( 2) Antegrade flow noted in both vertebral arteries. Mild bilateral internal carotid artery stenosis with less than 50% diameter stenosis. Had Carotid US on 02/22/18 showing mild bilateral internal carotid artery stenosis with less than 60% diameter stenosis. Needs repeat carotid U/S 02/2023. Pain in bi lateral legs 7456977969 4253815 M79.604 Had Normal ankle-brac hial index done in 10/26/17. Tachycardia 3507889 R00. 0 Improved but intermitte nt palpitatio ns on Metoprolol 200 mg qd, which she self-disco ntinued. Had 05/25/18 TSH 2.330. Anxiety 67052167 F41.9 Improved. History of anxiety and currently going through major life changes. Diabetes mellitus 124891 09 E11.59 Discussed importance of tight glycemic control to minimize cardiovasc ular disease progressio n. Follows with endo. Edema of l ower extremity 000835937 R60.0 Intermitte nt. Minimal. Started on HCTZ 12.5 mg 01/20/18 with resolution of edema but with increased Cr, prompting cessation of hydrochlor othiazide Feb 15 2018. Had poor liquid intake at that time. Had negative Venous Doppler for DVT on 01/20/18. Elevate legs.Compr ession stockings. Low Na diet. Consider HCTZ if edema increases. History of obesity 03387 3001 Z91.89 20 lb. weight loss recommende d over the next 2 months. Hypercholesterolemia 136 76685 E78.2 Needs to keep LDL less than [...] CPK 72 normal. Atypical chest pain 1025 42799 R07.89 Patient presents with chest pain with [...] 13.8 HCT 39.3 PLT 234 Coronary arteriosclerosis 05133669 I25.10 Mild-moder ate CAD. Had [facility] 02/18/22: mild to moderate CAD (40% stenosis mid LCx, LAD and RCA no significan t disease, RCA non-domina nt), normal LV systolic function, normal LVEDP. Continue ASA. Needs to keep LDL less than 70, and HDL more than 40. Palpitations 68807457 R0 0.2 Resolved. Had Cardea 7 day [...] 152 CA 9.0 MAG 1.6 CK 72 [id number] Adan Dobbins MD [place] [facility] [address] [place] [address] 10/27/2022 11:20:27 10/27/2022 12:56:22 Aortic valve regurgitation 95327224 I35.1 Mild previously . Had US, echocardio [...] Mild aortic valve regurgitat ion. Essential hypertension 61566486 I10 Well-contr olled with diet today despite [...] BP diary. Obtain BMP, Mg, drawn at [facility]. 10/25/22. Dizziness 798223781 R42 Intermitte nt. Postural. Had US, carotid artery ( 2) Antegrade flow noted in both vertebral arteries. Mild bilateral internal carotid artery stenosis with less than 50% diameter stenosis. Had Carotid US on 02/22/18 showing mild bilateral internal carotid artery stenosis with less than 60% diameter stenosis. Needs repeat carotid U/S 01/2023. Pain in bi lateral legs 1509821229 8186328 M79.604 Had Normal ankle-brac hial index done in 10/26/17. Tachycardia 1026107 R00. 0 Improved but intermitte nt palpitatio ns on Metoprolol 200 mg qd, which she self-disco ntinued. Had 05/25/18 TSH 2.330. Anxiety 62186141 F41.9 Improved. History of anxiety and currently going through major life changes. Diabetes mellitus 144907 09 E11.59 Discussed importance of tight glycemic control to minimize cardiovasc ular disease progressio n. Follows with endo. Edema of l ower extremity 863166931 R60.0 Intermitte nt. Minimal. Started on HCTZ 12.5 mg 01/20/18 with resolution of edema but with increased Cr, prompting cessation of hydrochlor othiazide Feb 15 2018. Had poor liquid intake at that time. Had negative Venous Doppler for DVT on 01/20/18. Elevate legs.Compr ession stockings. Low Na diet. Consider HCTZ if edema increases. Obtain labs 10/25/21 [facility]. History of obesity 30633 3001 Z91.89 20 lb. weight loss recommende d over the next 2 months. Hypercholesterolemia 136 97569 E78.2 Needs to keep LDL less than [...] CPK 72 normal. Atypical chest pain 1025 89683 R07.89 Patient presents with chest pain with [...] 13.8 HCT 39.3 PLT 234 Coronary arteriosclerosis 01869457 I25.10 Mild-moder ate CAD. Had [facility] 02/18/22: mild to moderate CAD (40% stenosis mid LCx, LAD and RCA no significan t disease, RCA non-domina nt), normal LV systolic function, normal LVEDP. Continue ASA. Needs to keep LDL less than 70, and HDL more than 40. Palpitations 57745943 R0 0.2 Resolved. Had Cardea 7 day [...] MAG 1.6 CK 72 Pre-surger y evaluation 822594292 Z01.818 There is no cardiac contraindi cation for the procedure. The planned procedure would be within acceptable risk. Patient may stop taking aspirin and Plavix five (5) days prior to the procedure. Patient may stop taking aspirin five (5) days prior to the procedure. [id number] Adan Dobbins MD [place] [facility] [address] [place] [address] 01/05/2023 14:00:47 01/05/2023 14:46:55 Aortic valve regurgitation 96817085 I35.1 Mild previously . Had US, echocardio [...] regurgitat ion. Obtain echo 03/2023. Essential hypertension 50331043 I10 Well-contr olled with diet today despite [...] CR 1.12 GL 177 CA 9.0 Dizziness 099065963 R42 Intermitte nt. Postural. Had US, carotid artery ( 2) Antegrade flow noted in both vertebral arteries. Mild bilateral internal carotid artery stenosis with less than 50% diameter stenosis. Had Carotid US on 02/22/18 showing mild bilateral internal carotid artery stenosis with less than 60% diameter stenosis. Needs repeat carotid U/S 02/2023. Pain in bi lateral legs 2869381694 4821843 M79.604 Had Normal ankle-brac hial index done in 10/26/17. Tachycardia 0512636 R00. 0 Improved but intermitte nt palpitatio ns on Metoprolol 200 mg qd, which she self-disco ntinued. Had 05/25/18 TSH 2.330. Anxiety 29211050 F41.9 Improved. History of anxiety and currently going through major life changes. Diabetes mellitus 874340 09 E11.59 Discussed importance of tight glycemic control to minimize cardiovasc ular disease progressio n. Follows with endo. Edema of l ower extremity 178312601 R60.0 Intermitte nt. Minimal. Started on HCTZ 12.5 mg 01/20/18 with resolution of edema but with increased Cr, prompting cessation of hydrochlor othiazide Feb 15 2018. Had poor liquid intake at that time. Had negative Venous Doppler for DVT on 01/20/18. Elevate legs.Compr ession stockings. Low Na diet. Consider HCTZ if edema increases. History of obesity 18443 3001 Z91.89 20 lb. weight loss recommende d over the next 2 months. Hypercholesterolemia 136 46643 E78.2 Needs to keep LDL less than [...] Mg, TSH, CBC. Atypical chest pain 1025 25011 R07.89 Resolved. Had exercise nuclear stress test 01/26/22: positive for ischemia, with reversible defect consistent with ischemia in laura-api daina area (new compared with 06/14/17).H ad [facility] 02/18/22: mild to moderate CAD (40% stenosis [...] 13.8 HCT 39.3 PLT 234 Coronary arteriosclerosis 48792637 I25.10 Mild-moder ate CAD. Had [facility] 02/18/22: mild to moderate CAD (40% stenosis mid LCx, LAD and RCA no significan t disease, RCA non-domina nt), normal LV systolic function, normal LVEDP. Continue ASA. Intolerant of lisinopril with altered mental status. Needs to keep LDL less than 70, and HDL more than 40. Palpitations 85021155 R0 0.2 Resolved. Had Cardea 7 day [...] Recorded Advance Directives Directive None Recorded Payers Insurance Date Sequence Insurance Name Policy Number Policy Guo Covered Member ID Guo Member ID Guarantor Name 01/02/2023 1 PRETTY [id number] Niles Croft [id number] 1 Niles Croft Notes Date Note Type [...] She is having R ankle surgery at [place] in [facility] with Dr. Phillips, date pending. Reports home [...] related. She had fasting blood work at [facility] on 05/25/18 which was all WNL except [...] today. Previously, pt reported she has been hot, went through menopause when she was 27. [...] >70%. Had normal [place] on 10/21/17. Had [employer] 7 day monitor 01/23/2018 which demonstrated normal [...] She is having R ankle surgery at [place] in [facility] with Dr. Phillips, date pending. Reports home [...] related. She had fasting blood work at [facility] on 05/25/18 which was all WNL except [...] today. Previously, pt reported she has been hot, went through menopause when she was 27. [...] correlated with normal sinus rhythm. Adan Dobbins [place], [place] - [facility] 02/03/2022 11:48:28 03/03/2022 text/html 03/03/22 CC: Chest pain 51 year-old woman with history of HTN, aortic valve regurgitation, obesity, diabetes mellitus, CKD, family history of CAD, former tobacco use (quit 05/2016), anxiety, depression, is seen in cardiac consultation for chest pain. She was last in the office 4 weeks ago. Had [facility] 02/18/22: mild to moderate CAD (40% stenosis mid LCx, LAD and RCA no significant disease, RCA non-dominant), normal LV systolic function, normal LVEDP. She is having R ankle surgery at [place] in [facility] with Dr. Phillips, date pending. Reports home [...] related. She had fasting blood work at [facility] on 05/25/18 which was all WNL except [...] today. Previously, pt reported she has been hot, went through menopause when she was 27. [...] events correlated with normal sinus rhythm. Had [facility] 02/18/22: mild to moderate CAD (40% stenosis mid LCx, LAD and RCA no significant disease, RCA non-dominant), normal LV systolic function, normal LVEDP. Adan Dobbins [place], [place] - [facility] 03/03/2022 17:58:07 05/05/2022 text/html 05/05/22 CC: Chest pain 51 year-old woman with history of CAD, carotid artery stenosis, HTN, aortic valve regurgitation, obesity, diabetes mellitus, CKD, family history of CAD, former tobacco use (quit 05/2016), anxiety, depression, is seen in cardiac consultation for chest pain. She was last in the office 8 weeks ago. Had [facility] 02/18/22: mild to moderate CAD (40% stenosis mid LCx, LAD and RCA no significant disease, RCA non-dominant), normal LV systolic function, normal LVEDP. She had R ankle surgery at [place] in [facility] with Dr. Phillips 03/2022. Reports home BP [...] related. She had fasting blood work at [place] on 05/25/18 which was all WNL except [...] today. Previously, pt reported she has been hot, went through menopause when she was 27. [...] EF 57%, Mild aortic valve regurgitation. Had [facility] 02/18/22: mild to moderate CAD (40% stenosis [...] triggered events correlated with normal sinus rhythm. [facility] 02/18/22: mild to moderate CAD (40% stenosis mid LCx, LAD and RCA no significant disease, RCA non-dominant), normal LV systolic function, normal LVEDP. Adan Dobbins [place] - [facility] 05/05/2022 15:19:25 10/27/2022 text/html [...] for R foot tendon repair, date pending. [facility] 02/18/22: mild to moderate CAD (40% stenosis mid LCx, LAD and RCA no significant disease, RCA non-dominant), normal LV systolic function, normal LVEDP. She had R ankle surgery at [place] in [facility] with Dr. Phillips 03/2022. Reports home BP [...] related. She had fasting blood work at [place] on 05/25/18 which was all WNL except [...] today. Previously, pt reported she has been hot, went through menopause when she was 27. [...] 50% diameter stenosis. Had Carotid US on 06/06/18 showing mild bilateral internal carotid artery stenosis [...] events correlated with normal sinus rhythm. Had [facility] 02/18/22: mild to moderate CAD (40% stenosis mid LCx, LAD and RCA no significant disease, RCA non-dominant), normal LV systolic function, normal LVEDP. Adan Dobbins [facility] [place] - [facility] 10/27/2022 12:49:30 01/05/2023 [...] LVEDP. She had R ankle surgery at [place] in [facility] with Dr. Phillips 03/2022. Reports home BP [...] related. She had fasting blood work at [place] on 05/25/18 which was all WNL except [...] today. Previously, pt reported she has been hot, went through menopause when she was 27. [...] events correlated with normal sinus rhythm. Had [facility] 02/18/22: mild to moderate CAD (40% stenosis mid LCx, LAD and RCA no significant disease, RCA non-dominant), normal LV systolic function, normal LVEDP. Adan Dobbins [facility] [place] - [facility] 01/05/2023 14:34:41 OBGyn Episode No OBEpisode recorded.
--- OUTSIDE RECORDS SUMMARY | 2025-02-19 21:48 | XMS_ITS | Data Portability ---
Author Organization [place] - [employer], Main Office Address [address] [place] [address] Care Team Providers Care Elder Counselor Name Role Phone FATOURADHA WAGGONER Primary Care Provider [phone] HOPEDILSONRADHA Referring Provider [phone] Assessment Encounter Date Assessment Date Assessment LastModified by Organization Details LastModified Time 02/23/2023 02/23/2023 [employer]- HY[employer]- [place] Mammo- 11/2021, ordered DEXA- 11/2021 [...] my care. She voices understanding of this. [email or web address] Not available 02/23/2023 16:47:43 Plan of Treatment Reminders Order Date Submit Date Provider Last Modified By Organization Details Last Modified Time Details Appointments None recorded. Lab vitamin D, 25-hydroxy, total, serum 2022 023 [facility], [address], [place], [address], 3 04:44:38 Referral None recorded. Procedures colonoscopy screening (PROC) 2022 023 [email or web address] Jaeger MD, [address], [address], [place], [address], 3 14:31:06 Surgeries None recorded. Imaging MAMMO, screening, bilateral 2022 023 [email or web address] [facility], [address], [address], [address], 15:56:08 Medication Orders None recorded. Patient TargetsNo targets recorded. Patient Instructions Encounter Date Encounter Id Patient Instructions Last Modified By Organization Details Last Modified Time 02/23/2023 [id number] INFLUENZA VACCIN E Recommended today, but patient [...] Known Diabetic LIPID SCREENING Diagnosis of Hyperlipidemia [email or web address] Not available 02/23/2023 16:51:34 Reason for Referral None Reported. Results Created Date Observation Date Name Description Value Unit Range Abnormal Flag Note LastModifiedBy Organization Detail LastModifiedTime 11/08/1911/08/2022 US, renal No observ ation record ed. [id number] [facility] [address] [place], [address], 11/17/2022 20:40:02 11/11/19 23 11/11/2022 CT, cervi daina spine , w/o contr ast No observ ation record ed. [id number] [facility] [address] [place], [address], 11/17/2022 20:40:02 11/11/19 23 11/11/2022 CT, lumba r spine , w/o contr ast No observ ation record ed. [id number] [facility] [address] [place], [address], 11/17/2022 20:40:02 11/26/19 23 11/24/2022 XR, lumba r spine No observ ation record ed. [address] [place], [address], 11/26/2022 17:06:46 11/26/19 23 11/24/2022 XR, cervi daina spine No observ ation record ed. [address] [place], [address], 11/26/2022 17:07:30 01/30/20 23 01/29/2023 XR, wrist No observ ation record ed. [address] [place], [address], 02/01/2023 11:13:37 07/22/20 23 07/22/2023 CT, head + brain , w/o contr ast No observ ation record ed. [address] [place], [address], 07/28/2023 17:21:08 Result Notes None recorded. Problems Name Problem SNOMED Code Status Onset Date Resolution Date Notes Provider Name and Address Organization Details Recorded Time Carpal tunnel syndrome of right wrist 5071070260436 08 Active 2021 Not Available [facility] 20:39:10 Suppurativ e arthritis 915703306 Active Not Available [facility] 20:39:10 Mixed anxiety and depressive disorder 562417214 Active 2022 GISELE Infante [address], [address], [place], [address] , [employer] [facility] [employer] [facility] 19:36:32 Type 2 diabetes mellitus without complicati on 251850518 Active 2022 ASIM Infante-C [address], [address], [place], [address] , [employer] [facility] [employer] [facility] 19:36:38 Neuropathy 521737064 Active 2022 MARTHA InfanteC [address], [address], [place], [address] , [employer] [facility] [employer] [facility] 19:36:54 Asthma 801056159 Active 2022 GISELE Infante [address], [address], [place], [address] , [employer] [facility] [employer] [facility] 19:36:57 Allergic rhinitis 01380864 Active 2022 MARTHA InfanteC [address], [address], [place], [address] , [employer] [facility] [employer] [facility] 19:37:23 Cardiovasc ular stress test abnormal 464478444 Active 2022 GISELE Infante [address], [address], [place], [address] , [employer] [facility] [employer] [facility] 19:38:27 Vitamin D deficiency 59825389 Active 2022 MARTHA InfanteC [address], [address], [place], [address] , [employer] [facility] [employer] [facility] 19:38:34 Fatigue 48129030 Active 2022 MARTHA InfanteC [address], [address], [place], [address] , [facility] [employer] [facility] 3 19:38:37 Chronic pain syndrome 642279001 Active 2022 Iliana kolb, [facility] [employer] [facility] 14:31:47 Problem Notes None recorded. Procedures Surgical History Date Name Laterality Status Provider Name and Address Organization Details Recorded Time Hysterectomy completed Not Available [facility] 11/17/2022 20:38:32 Neck Surgeries completed Not Available [facility] 11/17/2022 20:38:32 Back Surgeries completed Not Available [facility] 11/17/2022 20:38:32 Foot Surgery completed Not Available [facility] 11/17/2022 20:38:32 Knee Surgery completed Not Available [facility] 11/17/2022 20:38:32 Imaging Results None recorded. Procedure Notes None recorded. Medical Equipment None Reported. Allergies Allergen ID Allergen Name Allergen Category Reaction Reaction Severity Criticality Documentation Date Start Date Code Code System Note Provider Name and Address Organization Details Recorded Time 17256 Compazine medicatio n Not available Not available Not available 11/17/202222736 6 RxNorm (lock jaw) Not Available [facility] 20:39:59 Medications Name Sig Start Date Stop [...] % 97 % 98 /min 98.1 [degF] 39438.4 7 g 128 mm[Hg] 76 mm[Hg] Not Available [facility] 3 20:38:57 Date Recorded Body height Body mass index (BMI) Body weight Body temperature Heart rate Oxygen saturation Oxygen saturation in Arterial blood by Pulse oximetry Systolic blood pressure Diastolic blood pressure Provider Name and Address Organization Details Last Updated DateTime 3 170.18 cm 28.2 kg/m2 94760.6 3 g 98.4 [degF] 82 /min 98 % 98 % 118 mm[Hg] 74 mm[Hg] Melina James MA [place] [facility] 3 16:17:44 Date Recorded Body mass index (BMI) Body height Body weight Provider Name and Address Organization Details Last Updated DateTime 05/25/2022 34.5 kg/m2 170.18 cm 23907.32 g Not Available [facility] 11/17/2022 20:38:59 Date Recorded Body mass index (BMI) Body height Body weight Provider Name and Address Organization Details Last Updated DateTime 08/24/2022 33.2 kg/m2 170.18 cm 54578.58 g Not Available [facility] 11/17/2022 20:38:59 Date Recorded Body mass index (BMI) Body height Oxygen saturation Oxygen saturation in Arterial blood by Pulse oximetry Heart rate Body temperature Body weight Systolic blood pressure Diastolic blood pressure Provider Name and Address Organization Details Last Updated DateTime 2 32.6 kg/m2 170.18 cm 97 % 97 % 98 /min 97.7 [degF] 73464.2 1 g 132 mm[Hg] 76 mm[Hg] Not Available [facility] 3 20:38:57 Social History Question Answer Notes LastModified by Organizat ion Details LastModified Time Tobacco Smoking Status Never Smoker Not Available [facility] 11/17/2022 20:38:28 Do You Wear A Helmet When Biking? No [id number].[id number] Information not available 11/17/2022 What Is Your Level Of Caffeine Consumption? Moderate MIGRATION.67040 45949 Information not available 11/17/2022 In The 14 Days Before Symptom Onset, Have You Had Close Contact With A Laboratory-confir med COVID-19 While That Case Was Ill? No MIGRATION.43935 76816 Information not available 11/17/2022 In The 14 Days Before Symptom Onset, Have You Had Close Contact With A Person Who Is Under Investigation For COVID-19 While That Person Was Ill? No MIGRATION.94994 44482 Information not available 11/17/2022 What Type Of Diet Are You Following? REGULAR MIGRATION.87952 16603 Information not available 11/17/2022 Have There Been Any Changes To Your Family Or Social Situation? No MIGRATION.37620 71439 Information not available 11/17/2022 What Is The Fluoride Status Of Your Home? Unknown MIGRATION.18084 44989 Information not available 11/17/2022 Do You Use Insect Repellent Routinely? No MIGRATION.55368 33501 Information not available 11/17/2022 Where Do You Live? [place] MIGRATION.16062 47629 Information not available 11/17/2022 What Was The Date Of Your Most Recent Tobacco Screening? 02/23/2023 [email or web address] Information not available 02/23/2023 Do You Have Any Pets? Yes MIGRATION.17914 93552 Information not available 11/17/2022 Do You Have Smoke And Carbon Monoxide Detectors In Your Home? Yes MIGRATION.55132 38601 Information not available 11/17/2022 Are You Passively Exposed To Smoke? No MIGRATION.41689 28350 Information not available 11/17/2022 Are There Any Smokers In Your House? No MIGRATION.40203 53784 Information not available 11/17/2022 Do You Use Sunscreen Routinely? No MIGRATION.93858 02544 Information not available 11/17/2022 Have You Recently Traveled Abroad? No MIGRATION.13109 61868 Information not available 11/17/2022 Do You Have Any Dietary Restrictions? No MIGRATION.64926 06808 Information not available 11/17/2022 Sex: Unknown Functional Status Question Answer Note LastModified by [employer] Details LastModified Time Do you or have you ever used any other forms of tobacco or nicotine? No MIGRATION.[id number] 6 Information not available 11/17/2022 What is your level of alcohol consumption? None MIGRATION.246996130 6 Information not available 11/17/2022 What is your exercise level? Moderate MIGRATION.160504845 6 Information not available 11/17/2022 Mental Status Question Answer Note LastModified by [employer] Details LastModified Time Do you feel stressed (tense, restless, nervous, or anxious, or unable to sleep at night)? HC9511-7 MIGRATION.[id number] 6 Information not available 11/17/2022 Family History Relationship Description Onset Age of this Age Resolved Age Notes LastModified by Organization Details LastModified Time Mother Family history of malignant neoplasm [id number] Not available 11/17/2022 20:38:33 Medical History Condition Response DIABETES, TYPE Y Gynecological HistoryNo gynecological history recorded. Obstetrics History GPAL:G 0 P 0 0 0 0 Past Encounters Encounter ID Performer Location Encounter Start Date Encounter Closed Date Diagnosis/Indication Diagnosis SNOMED-CT Code Diagnosis ICD10 Code Diagnosis Note [id number] MD YODIT [facility] [place] [address] [place] [address] [place] [address] 12/02/2021 00:00:00 12/02/2021 17:07:21 [id number] [facility] [place] [address] [place] [address] [place] [address] 12/30/2021 00:00:00 12/30/2021 14:49:27 [id number] MD [facility] [place] [address] [place] [address] 01/12/2022 00:00:00 01/12/2022 15:29:24 [id number] MD [facility] [place] [address] [place] [address] [place] [address] 01/20/2022 00:00:00 01/20/2022 14:52:49 [id number] Is[facility]aw [facility] [place] [address] [place] [address] [place] [address] 02/03/2022 00:00:00 02/03/2022 15:30:47 [id number] Isabella shaw MD [facility] [place] [address] [place] [address] [place] [address] 03/31/2022 00:00:00 03/31/2022 16:28:57 [id number] Edward Osborne [facility] [place] [address] [place] [address] 04/09/2022 00:00:00 04/09/2022 13:24:19 [id number] Edward Osborne MD [facility] [place] [address] [place] [address] 04/27/2022 00:00:00 04/27/2022 16:52:36 [id number] Edward Osborne MD [facility] [place] [address] [place] [address] 05/25/2022 00:00:00 05/25/2022 16:49:47 [id number] Edward Osborne MD [facility] [place] [address] [place] [address] 08/24/2022 00:00:00 08/24/2022 17:22:21 [id number] Isabella shaw MD [facility] Internal Med [address] [place] [address] 08/25/2022 00:00:00 08/25/2022 16:57:02 [id number] Isabella shaw MD [facility] Internal Med [facility] [address] [facility], [facility] [address] [place] [address] 11/01/2022 00:00:00 11/01/2022 16:01:52 [id number] Isabella shaw MD [facility] Internal Med [address] [place] [address] 02/23/2023 16:02:31 02/23/2023 16:32:14 Mixed anxiety and depressive disorder 357840112 F41.8 now following psychiatry - Dr. Rollins's officeon wellbutrin from [facility] office if any change in mood or behaviorS e is able to commit to safety todayconti nue counseling Type 2 wendy betes mellitus without complication 766000394 E11.9 on Trulicity, glimiperid efollows endocrinol ogy- Dr. Garcia in [facility] eye exam- 11/2021- encouraged her to schedule pt is aware of side effects, risks, benefitspt denies any personal or family history of MEN II or MTC, denies and personal history of pancreatit ispt knows to call the office if any severe n/v or abdominal pain Neuropathy 114843749 G62 .9 follows podiatry- Dr. Harley Gipson gabapentin from him Asthma 121199474 J45.90 9 on proair prnon Symbicort, she is worse at effects, risks, benefitssh e is aware to rinse and spit after use Carpal julita kendra syndrome of right wrist 1338735541 92610 G56.01 now following hand surgery- Dr. Osborne Allergic rhinitis 291222 04 J30.9 on flonase and singulairc all office if any change in mood or behavior Body mass index 30+ - obesity 252070461 Z68.31 recommend healthy, well balanced mealsfocus on lean meats, fresh vegetables , fresh fruits, whole grainsredu ce fast/proce ssed foods or eating out to no more than 1-2 times per weekaim to get 30 min of exercise most days of the week- walking is a great choice Cardiovasc ular stress test abnormal 512838064 R94.39 cardiac cath was ok per cardiologi st note Vitamin D deficiency 347 41948 E55.9 hold vitamin d x 4 weeks and then repeat levelnever got repeat level- encouraged her to get Fatigue 88274104 R53.83 no explanatio n for fatigue in labs, recommend sleep study- she declines Screening mammography 24 692779 Z12.31 Family his tory of cancer of colon 698086704 Z80.0 Adult heal th examination 733556327 Z00.01 Depression screening 171 554580 Z13.31 Body mass index 25-29 - overweight 787645603 Z68.28 recommend healthy, well balanced mealsfocus on [...] Policy Number Policy Guo Covered Member ID Ugo Member ID Guarantor Name 02/23/2023 1 PRETTY [id number] Niles Croft [id number] 1 Niles Villafana Markgonzalez Notes Date Note Type Note Provider Name and Address Organization Details Recorded Time 02/23/2023 text/html Niles presents today for follow up. She is also due for annual wellness exam. she reports she has had a ne the foot surgery with her machine helper. She follows up again in a couple weeks. She is just on a regular tennis shoe and not in a boot at this time. She continues to follow Endocrinology for her diabetes. They order all of her labs. 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 She still refuses her sleep study. [...] She is due for mammogram. Radha Kaminski, ASIM-C [address] [facility], [facility] [address], [place], [address], [place] [facility] 02/23/2023 16:52:24 OBGyn Episode No OBEpisode recorded.
--- OUTSIDE RECORDS SUMMARY | 2025-02-19 21:48 | XMS_ITS | Clinical Summary ---
Author Organization [facility] [employer] Address [address] [place] [address] Care Team Providers Care Inside Sales Executive Name Role Phone Radha Kaminski MYRON-VETERINARIAN Primary Care Provider [phone] Harmony Mcrae MD Unavailable Source Comments [facility] [employer],non-owned Affiliates and Associated Physician Practices is amultiple site organization consisting of ambulatory clinics and hospital sitesin [place], [place], [place] and [place]. This disclosure is being madepursuant to the Care Everywhere program and may not contain all information available regarding this patient. Last updated 18.[facility] Allergies Active Allergy Reactions Criticality Noted Date [...] fluticasone propionate (FLONASE) 50 MCG/ACT nasal spray [place] 2 (two) sprays into each nostril once daily Active blood glucose (Mojo MobilityTOUCH ULTRA) test strip USE TO TEST THREE TIMES A DAY 1 Active estradiol (ESTRACE) 2 MG tablet Take 1 (one) tablet by mouth every 24 hours Active Multiple Vitamins-English Composition Teacher als (MULTI VITAMIN/MINERA LS) TABS Take 1 (one) tablet by mouth once daily Active Alsip-3 Fatty Acids (FISH OIL) 1000 MG capsule Take 1 (one) capsule by mouth once daily Active Cholecalcifero l 1.25 MG (90386 UT) Take 1 capsule by mouth every [...] naloxone HCl (Narcan) 4 MG/0.1ML nasal spray Lenoir 1 (one) spray into the nose Active [...] day by topical route. Active HYDROcodone-ac etaminophen ([place]) 5-325 MG tablet Take 1 (one) tablet by mouth two times daily at 4am and 4pm Active indomethacin (Indocin) 50 MG capsule TAKE 1 CAPSULE BY MOUTH THREE TIMES A DAY ADMINISTER WITH FOOD OR MILK Active mupirocin (Bactroban) 2 % ointment 1 APPLIC TOPICALLY TWICE A DAY Active nystatin (Mycostatin) 623259 UNIT/ML suspension Take 5 mL 4 times [...] on file Legal Sex Female 5:06 PM IT PROJECT LEAD Gender Identity Not on file Sexual Orientation Not on file Last Filed Vital Signs Vital Sign Reading Time Taken Comments Blood Pressure 122/68 10/06/2023 2:03 PM IT PROJECT LEAD Pulse 79 10/06/2023 2:03 PM IT PROJECT LEAD Temperature 36.6 C (97.9 F) 01/07/2022 2:03 PM CDT Respiratory Rate 16 08/02/2023 2:35 PM IT PROJECT LEAD Oxygen Saturation 97% 08/02/2023 2:35 PM IT PROJECT LEAD Inhaled Oxygen Concentration - - Weight 93.9 kg (207 lb) 10/06/2023 2:03 PM IT PROJECT LEAD Height 170.2 cm (5' 7) 10/06/2023 2:03 PM IT PROJECT LEAD Body Mass Index 32.42 10/06/2023 2:03 PM IT PROJECT LEAD Plan of Treatment Health Maintenance Due Date Last Done Comments COLOGUARD (AGES 45-75) - COLON CA SCREENING 1968 COLON MONITORING 1968 COLONOSCOPY [...] VACCINE (1 of 2) 2018 COVID-19 VACCINE (1 - season) 2024 DEPRESSION SCREENING 09/19/2024 INFLUENZA VACCINE (Season Ended) 2025 SCREENING FOR DIABETES 09/09/2026 3, 08/02/2023, 02/18/2022, Additional history exists HEPATITIS C SCREENING Completed 08/02/2023, 022 HIB VACCINE Aged Out No longer eligi ble based on patient's age to complete this topic HPV VACCINE Aged Out No longer eligi ble based on patient's age to complete this topic MENINGOCOCCAL (Group B) VACCINE SHARED DECISION-MAKING Aged Out No longer eligible based on patient's age to complete this topic MENINGOCOCCAL GROUPS A/C/Y/W VACCINE Aged Out No longer eligible based on patient's age to complete this topic Procedures Procedure Name Priority Date/Time Associated Diagnosis Comments COMPREHENSIVE METABOLIC PANEL Routine 08/02/2023 3:29 PM IT PROJECT LEAD Arthralgia, unspecified joint HEPATITIS SCREEN ACUTE ([facility]) Routine 08/02/2023 3:28 PM IT PROJECT LEAD Arthralgia, unspecified joint from Last 3 Months or Most Recently Relevant to Health Maintenance Results * (ABNORMAL) COMPREHENSIVE METABOLIC PANEL (08/02/2023 3:29 PM IT PROJECT LEAD) Glucose 95 70 - 99 mg/dL [facility] [...] BLOOD SPECIMEN / Unknown 08/02/2023 3:29 PM IT PROJECT LEAD 08/02/2023 Narrative Resulting Agency Comment Lab Testing performed at: [place] [id number] [facility] [id number] Harmony Mcrae MD LAB - CHEMISTRY ORDERABLES Final Result [facility] INSURANCE BILL [address] [place] [address] * HEPATITIS SCREEN ACUTE ([facility]) (08/02/2023 3:28 PM IT PROJECT LEAD) Hepatitis A Virus Antibody IgM Negative Negative [facility] INSURANCE BILL Hepatitis B Virus Surface Antigen Negative Negative [facility] INSURANCE BILL Hepatitis B Core Virus Antibody IgM Negative Negative [facility] INSURANCE BILL Hepatitis C Antibody Non Reactive Non Reactive [facility] INSURANCE BILL Blood BLOOD SPECIMEN / Unknown 08/02/2023 3:28 PM IT PROJECT LEAD 08/02/2023 Narrative Resulting Agency Comment [facility] [address] [facility] [id number] Harmony Mcrae MD LAB - CHEMISTRY ORDERABLES Final Result [facility] INSURANCE BILL [address] [place] [address] from Last 3 Months or Most Recently Relevant to Health Maintenance Insurance Care Teams Inside Sales Executive Relationship Specialty Start Date End Date Radha Kaminski APRN-SCOTT [address] [facility] [address] [place] [address] PCP - General Nurse Practitioner Family 12/03/21 [place] [address] [place] [address] [place] [phone] Rheumatology 12/03/21
--- OUTSIDE RECORDS SUMMARY | 2025-02-19 21:48 | XMS_ITS | Clinical Summary ---
Author Organization [facility] [employer] Address [address] [place] [address] Care Team Providers Care Hotel Sales Manager Name Role Phone Roland Rojas DO [...] region 05/17/2023 Coronary artery disease invo lving [place] coronary artery of [place] heart without angina pectoris 04/19/2023 Essential hypertension [...] (01/24/2024): Added automatically from request for surgery [id number] Nonspecific abnormal results of function study o [...] on file Legal Sex Female 7:45 PM BIOMASS PLANT MANAGER Gender Identity Not on file Sexual Orientation Not on file Obstetrics History Last Filed Vital Signs Vital Sign Reading Time Taken Comments Blood Pressure 118/82 08/23/2024 2:00 PM BIOMASS PLANT MANAGER Pulse 82 08/23/2024 2:00 PM BIOMASS PLANT MANAGER Temperature 36.5 C (97.7 F) 02/18/2022 2:55 PM CDT Respiratory Rate 17 05/17/2023 1:17 PM CDT Oxygen Saturation 99% 08/23/2024 2:00 PM BIOMASS PLANT MANAGER Inhaled Oxygen Concentration - - Weight 107 kg (236 lb) 08/23/2024 2:00 PM BIOMASS PLANT MANAGER Height 170.2 cm (5' 7) 08/23/2024 2:00 PM BIOMASS PLANT MANAGER Body Mass Index 36.96 08/23/2024 2:00 PM BIOMASS PLANT MANAGER Plan of Treatment Health Maintenance Due Date [...] POCT LIPID PANEL Routine 08/23/2024 2:54 PM BIOMASS PLANT MANAGER Coronary artery disease involving [place] coronary artery of [place] heart without angina pectoris Hyperlipidemia associated with type 2 diabetes mellitus (HCC) EGFR STAT 02/18/2022 1:07 PM CDT from Last 3 Months or Most Recently Relevant to Health Maintenance Results * POCT lipid panel (08/23/2024 2:54 PM BIOMASS PLANT MANAGER) Cholesterol, POC 234 mg/dL HDL, POC 48 mg/dL Triglycerides, POC 305 mg/dL LDL Cholesterol POC 125 mg/dL Chol/HDL Ratio, POC 4.9 Non-HDL Cholesterol, POC 186 mg/dL Cholesterol Total, POC 234 mg/dL Capillary blood 08/23/2024 2 :54 PM BIOMASS PLANT MANAGER Rhett Ramírez MD POINT OF CARE TEST [...] ORDERABLES Final Re sult [facility] [address] [facility] Department [place] [address] from Last 3 Months or Most Recently Relevant to Health Maintenance Insurance CIG[employer] OPEN ACCESS CIGNA OPEN ACCESS CIGNA OPEN ACCESS CR[facility] ACCESS H[facility]PITAL OPEN ACCESS Care Teams Hotel Sales Manager Relationship Specialty Start Date End Date Roland Rojas DO [address] [place] [address] PCP - General Family Medicine 01/24/24
--- OUTSIDE RECORDS SUMMARY | 2025-02-19 21:48 | XMS_ITS | Referral Summary ---
Author Organization [facility] [employer] Address [address] [place] [address] Care Team Providers Care Field Handyman Name Role Phone Roland Rojas DO Primary [...] region 05/17/2023 Coronary artery disease invo lving [place] coronary artery of [place] heart without angina pectoris 04/19/2023 Essential hypertension [...] (01/24/2024): Added automatically from request for surgery [id number] Nonspecific abnormal results of function study o [...] on file Legal Sex Female 7:45 PM POLITICAL SCIENCE FACULTY MEMBER Gender Identity Not on file Sexual Orientation Not on file Last Filed Vital Signs Vital Sign Reading Time Taken Comments Blood Pressure 118/82 08/23/2024 2:00 PM POLITICAL SCIENCE FACULTY MEMBER Pulse 82 08/23/2024 2:00 PM POLITICAL SCIENCE FACULTY MEMBER Temperature 36.5 C (97.7 F) 02/18/2022 2:55 PM CDT Respiratory Rate 17 05/17/2023 1:17 PM CDT Oxygen Saturation 99% 08/23/2024 2:00 PM POLITICAL SCIENCE FACULTY MEMBER Inhaled Oxygen Concentration - - Weight 107 kg (236 lb) 08/23/2024 2:00 PM POLITICAL SCIENCE FACULTY MEMBER Height 170.2 cm (5' 7) 08/23/2024 2:00 PM POLITICAL SCIENCE FACULTY MEMBER Body Mass Index 36.96 08/23/2024 2:00 PM POLITICAL SCIENCE FACULTY MEMBER Plan of Treatment Not on file Procedures Procedure Name Priority Date/Time Associated Diagnosis Comments POCT LIPID PANEL Routine 08/23/2024 2:54 PM POLITICAL SCIENCE FACULTY MEMBER Coronary artery disease involving [place] coronary artery of [place] heart without angina pectoris Hyperlipidemia associated with type 2 diabetes mellitus (HCC) EGFR STAT 02/18/2022 1:07 PM CDT from Last 3 Months or Most Recently Relevant to Health Maintenance Results * POCT lipid panel (08/23/2024 2:54 PM POLITICAL SCIENCE FACULTY MEMBER) Cholesterol, POC 234 mg/dL HDL, POC 48 mg/dL Triglycerides, POC 305 mg/dL LDL Cholesterol POC 125 mg/dL Chol/HDL Ratio, POC 4.9 Non-HDL Cholesterol, POC 186 mg/dL Cholesterol Total, POC 234 mg/dL Capillary blood 08/23/2024 2 :54 PM POLITICAL SCIENCE FACULTY MEMBER Rhett Ramírez MD POINT OF CARE TEST [...] LAB BLOOD ORDERABLES Final Re sult [facility] [id number] [facility] Department [place] [address] from Last 3 Months or Most Recently Relevant to Health Maintenance Insurance [employer] OPEN ACCESS CIGNA OPEN ACCESS Care Teams Field Handyman Relationship Specialty Start Date End Date Roland Rojas DO [address] [place], [place] [address], [place] [address] PCP - General Family Medicine 01/24/24
--- OUTSIDE RECORDS SUMMARY | 2025-02-19 21:48 | XMS_ITS | Encounter Summary ---
Author Organization [facility] Address [address] [place] [address] Care Team Providers Care Card Cleaner Name Role Phone Radha Kaminski MYRON-AZURE DEVELOPER Primary Care Provider [phone] Harmony Mcrae MD Unavailable Encounter Details Date Type Department Care Team (Late st Contact Info) Description 06/20/2023 Lab Requisition [facility] - Derm[facility] Lab [address] [place] [address] Andrzej Aguilar MD [address] [place] [address] Social History Tobacco Use Types Packs/Day Years Used Date Smoking Tobacco: Never Smokeless Tobacco: Never Alcohol Use Standard Drinks/Week Comments Never 0 (1 standard drink = 0.6 oz pur e alcohol) Comments Unknown Sex and Gender Information Value Date Recorded Sex Assigned at Not on file Legal Sex Female 5:06 PM JOB COUNSELOR Gender Identity Not on file Sexual Orientation Not on file documented as of this encounter Plan of Treatment Not on file documented as of this encounter Procedures Procedure Name Priority Date/Time Associated Diagnosis Comments DERMATOPATHOLOGY Routine 06/20/2023 12:0 0 AM CDT documented in this encounter Results * DERMATOPATHOLOGY (06/20/2023 12:00 AM CDT) Case Report Dermatopathology Report Case: [id number] Authorizing Provider: Andrzej Aguilar MD Collected: 06/20/2023 12:00 AM Ordering Location: [facility] DermPath Lab Received: 06/21/2023 06:10 AM Pathologist: [...] characteristic determined by the Dermatopathology Laboratory at [facility], directed by Dr. Jean-Pierre Miller. These tests need not be, and therefore are not, approved by the [place] Food and Drug Administration. The tests are used for clinical purposes. Billing Codes Specimen Charges Stain Charges 03277 1 92313 1 4:35 PM CDT DERMATOPATHOLOGY LABORATORY Embedded Images 4:35 PM CDT DERMATOPATHOLOGY LABORATORY Pathology/Cytolog y TISSUE SPECIMEN FROM SKIN / Unknown 06/20/2023 06/21/2023 6:10 AM CDT us Andrzej Aguilar MD LAB - PATHOLOGY/CYTOLOGY ORDERAB LES Final Result DERMATOPATHOLOGY LABORATORY [facility] - Department of Dermatology [facility] [address] [phone] documented in this encounter Visit Diagnoses Not on filedocumented in this encounter Care Teams Card Cleaner Relationship Specialty Start Date End Date Radha Kaminski APRN-AZURE DEVELOPER [address] [facility] [address] [place] [phone] PCP - General Nurse Practitioner Family 12/03/21 [place] [address] [place] [address] [place] [phone] Rheumatology 12/03/21 documented as of this encounter
[2025-02-19 22:26] VITALS: BP 131/81; PULSE 103; RESP 13; TEMP 36.7; O2SAT 100
--- NOTE | 2025-02-19 22:31 | ED.SKABFB ---
HPI - Skin/Abscess/Foreign Bdy General Chief complaint: Skin/Abscess/Foreign Body Stated complaint: Female Issues Time Seen by Provider: 02/19/25 22:31 Source: patient and family Mode of arrival: ambulatory Limitations: no limitations History of Present Illness HPI narrative: Patient is a 54-year-old female with a right groin abscess and skin infection. Patient has been having rash for 3 days. The area has broken open last night with pus drainage. MD complaint: rash Onset (ago): day(s) ( Three) Location: genitals ( right groin) Severity: moderate Severity scale (1-10): 5 Quality: sharp Pain Consistency: constant Relieving factors: none Exacerbating factors: none Context: other ( patient having progressively worse right groin abscess which drained last night.) Associated symptoms: denies other symptoms Treatments prior to arrival: none Related Data Home Medications ?Medication ?Instructions ?Recorded ?Confirmed ?Last Taken ?Type estradiol 2 mg tablet 1 tablet PO DAILY 02/23/22 02/15/25 Unknown History gabapentin 300 mg capsule 300 mg PO TID 02/23/22 02/15/25 03/04/22 History magnesium oxide 400 mg PO DAILY 02/23/22 02/15/25 03/01/22 History cariprazine 1.5 mg capsule 3 mg PO DAILY 06/04/23 02/15/25 Unknown History (Vraylar) bupropion HCl 150 mg 24 hr tablet, 150 mg PO DAILY 07/22/23 02/15/25 Unknown History extended release methylphenidate HCl 36 mg 72 mg PO DAILY 07/22/23 02/15/25 Unknown History tablet,extended release 24 hr (Concerta) rosuvastatin 20 mg tablet 20 mg PO DAILY 07/22/23 02/15/25 Unknown History icosapent ethyl 1 gram capsule 2 g PO BID 12/02/23 02/15/25 Unknown History cyanocobalamin (vitamin B-12) 500 mcg subcut MONTHLY 02/13/25 02/15/25 Unknown History 1,000 mcg/mL injection solution cyclobenzaprine 10 mg tablet 10 mg PO ONCE 02/13/25 02/15/25 Unknown History oxycodone 5 mg tablet 5 mg PO Q8H PRN 02/13/25 02/15/25 Unknown History Allergies Allergy/AdvReac Type Severity Reaction Status Date / Time prochlorperazine Allergy Severe Other Verified 02/19/25 23:49 ciprofloxacin Allergy Mild Rash Verified 02/19/25 23:49 Review of Systems Review of Systems: All systems reviewed & are unremarkable except as noted in HPI and below Constitutional: Constitutional: Reports no additional constitutional complaints Eyes: Eyes: Reports no additional eye complaints ENT: Reports system reviewed and no additional complaints, except as documented Cardiovascular: Cardiovascular: Reports no additional cardiovascular complaints Respiratory: Respiratory: Reports no additional respiratory complaints Gastrointestinal: Gastrointestinal: Reports no additional gastrointestinal complaints Genitourinary: Genitourinary: Reports no additional female genitourinary complaints Musculoskeletal: Musculoskeletal: Reports no additional musculoskeletal complaints Integumentary/Breasts: Skin/Breast: Reports system reviewed and no additional complaints, except as docu Neurologic: Reports system reviewed and no additional complaints, except as documented Psychiatric: Psychiatric: Reports no additional psychiatric complaints Endocrine: Endocrine: Reports no additional endocrine complaints Hematologic/Lymphatic: Hematologic/Lymphatic: Reports no additional hematologic/lymphatic complaints Allergic/Immunologic: Allergic/Immunologic: Reports no additional allergic/immunologic complaints PMFSH Past Medical History Medical History Excessive daytime sleepiness Chronic mixed headache syndrome Obesity Depression Anxiety Back pain Hyperlipidemia Bipolar 1 disorder Diabetes Migraine Surgical History Surgical History History of foot surgery History of left knee surgery History of carpal tunnel release Hx of cholecystectomy H/O: hysterectomy Family History Family History Other Family history of malignant neoplasm Hypertension Social History Social History Smoking status: Never smoker Tobacco type: cigarettes Second hand tobacco smoke exposure: No Alcohol intake: never Drinks per week: 1 Alcohol use details: rare occasional use Substance use: never Substance use type: does not use Other substance usage details: medical marijuanna Do You Feel Safe in your Home?: Yes Lack of Transportation: No Lack of Food: Never True Current Housing: I Have Housing Concerned About Future Housing: No Difficulty Paying Gas/Electric Bills: Decline to Answer Difficulty Paying for Meds: Decline to Answer Currently Unemployed: No Education: High School Diploma/GED Living arrangements: alone Gender identity (if verbalized by the patient): Female Spiritual care concerns: No Exam Const: General: healthy appearing Nutritional Appearance: well nourished Orientation/consciousness: patient oriented x3 HENMT: Head: normal to inspection Ears: external ears normal Face/Nose/Sinus: Normal external nose present Eyes: Conjunctivae: conjunctivae normal Pupils: Equal, round and reactive pupils present EOM: EOMs intact bilaterally Neck: Neck: normal visual inspection Chest: Chest palpation & inspection: normal inspection of the chest Resp: Effort & Inspection: normal respiratory effort and not labored Auscultation: clear to auscultation bilaterally and no crackles Cardio: Rate: regular rate Rhythm: regular rhythm Heart sounds: no murmurs GI: Inspection: non-distended GI Palp: Yes Soft to palpation and No Tenderness to palpation present (GI) Auscultation: normal bowel sounds : General: Yes bladder normal to palpation Back/Spine/Pelvis: Back: no CVA tenderness Skin: General skin exam: normal color Rashes: rash noted Wounds: no wounds Other: Right groin examined with female nurse showing a 2 hole nidus of opening to a abscess formation that is drained at this time and no further loculations noted; area is tender with localized erythema but no further abscess loculations Neuro: General: patient oriented x3 Cranial nerves: Yes Nystagmus not present Speech: normal speech Extrem: General: normal to inspection Psych: Mental Status: mental status grossly normal Affect: normal affect Course Vital Signs Vital signs: Vital Signs Temperature 36.7 C 02/19/25 22:26 Pulse Rate 103 H 02/19/25 22:26 Respiratory Rate 13 02/19/25 22:26 Blood Pressure 131/81 02/19/25 22:26 Pulse Oximetry 02/19/25 22:26 Oxygen Delivery Room Air 02/19/25 22:26 Temperature 36.7 C 02/19/25 22:26 Pulse Rate 103 H 02/19/25 22:26 Respiratory Rate 02/19/25 22:26 Blood Pressure 131/81 02/19/25 22:26 Pulse Oximetry 100 02/19/25 22:26 Oxygen Delivery Room Air 02/19/25 22:26 MDM - Skin/Abscess/Foreign Bdy MDM Narrative Medical decision making narrative: patient is a 54-year-old female with a right groin abscess. No need for incision and drainage at this time. We will do clindamycin. She will get clindamycin and mupirocin for discharge. Discharge Plan Discharge Clinical Impression: Abscess Cellulitis Qualifiers: Site of cellulitis: other site Qualified Code(s): L03.818 - Cellulitis of other sites Patient Disposition: Home Condition: Stable Instructions: Antibiotic Form, Abscess (ED) Additional Instructions: please use the ointment on the area of infection as well as in the nostrils on each side twice a day for 5 days. Patient Language: Palestinian Prescriptions: New mupirocin [Centany] 2 % ointment 1 applic topical BID PRN (Reason: rash) Qty: 22 0RF Rx Instructions: Also place twice a day in the nostrils on either side for 5 days clindamycin HCl [Cleocin HCl] 300 mg capsule 300 mg PO TID 7 Days Qty: 21 0RF No Action Vraylar 1.5 mg capsule 3 mg PO DAILY methylphenidate HCl [Concerta] 36 mg tablet extended release 24hr 72 mg PO DAILY bupropion HCl 150 mg tablet extended release 24 hr 150 mg PO DAILY rosuvastatin 20 mg tablet 20 mg PO DAILY oxycodone 5 mg tablet 5 mg PO Q8H PRN cyclobenzaprine 10 mg tablet 10 mg PO ONCE cyanocobalamin (vitamin B-12) 1,000 mcg/mL solution 500 mcg subcut MONTHLY fluticasone propionate 50 mcg/actuation spray,suspension 2 spray NASAL BID Qty: 96 3RF Rx Instructions: administer into each nostril mupirocin 2 % ointment 1 applic topical BID Qty: 22 3RF Rx Instructions: Intranasal icosapent ethyl 1 gram capsule 2 g PO BID Mounjaro 7.5 mg/0.5 mL pen injector 7.5 mg subcut WEEKLY Qty: 2 0RF estradiol 2 mg tablet 1 tablet PO DAILY gabapentin 300 mg Capsule 300 mg PO TID magnesium oxide 400 mg magnesium Tablet 400 mg PO DAILY furosemide 20 mg tablet See Rx Instructions .ROUTE .COMPLEX Qty: 90 3RF Dose Instruction: TAKE 1 TABLET BY MOUTH EVERY MORNING NEEDED FOR PITTING EDEMA Rx Instructions: TAKE 1 TABLET BY MOUTH EVERY MORNING NEEDED FOR PITTING EDEMA montelukast 10 mg tablet 10 mg PO DAILY Qty: 90 3RF levothyroxine 50 mcg tablet 50 mcg PO DAILY Qty: 90 3RF Follow-up/Referrals: Roland Rojas DO [Primary Care Provider] - Time of Disposition: 23:36
--- OUTSIDE RECORDS SUMMARY | 2025-02-19 22:41 | XMS_ITS | Referral Summary ---
Author Organization [facility] [address] [employer] Address [address] [place] [address] Care Team Providers Care Tombstone Carver Name Role Phone Roland Rojas DO Primary [...] region 05/17/2023 Coronary artery disease invo lving chene[place] coronary artery of chene[place] heart without angina pectoris 04/19/2023 Essential hypertension [...] (01/24/2024): Added automatically from request for surgery [id number] Nonspecific abnormal results of function study o [...] on file Legal Sex Female 7:45 PM COIL MACHINE OPERATOR Gender Identity Not on file Sexual Orientation Not on file Last Filed Vital Signs Vital Sign Reading Time Taken Comments Blood Pressure 118/82 08/23/2024 2:00 PM COIL MACHINE OPERATOR Pulse 82 08/23/2024 2:00 PM COIL MACHINE OPERATOR Temperature 36.5 C (97.7 F) 02/18/2022 2:55 PM CDT Respiratory Rate 17 05/17/2023 1:17 PM CDT Oxygen Saturation 99% 08/23/2024 2:00 PM COIL MACHINE OPERATOR Inhaled Oxygen Concentration - - Weight 107 kg (236 lb) 08/23/2024 2:00 PM COIL MACHINE OPERATOR Height 170.2 cm (5' 7) 08/23/2024 2:00 PM COIL MACHINE OPERATOR Body Mass Index 36.96 08/23/2024 2:00 PM COIL MACHINE OPERATOR Plan of Treatment Not on file Procedures Procedure Name Priority Date/Time Associated Diagnosis Comments POCT LIPID PANEL Routine 08/23/2024 2:54 PM COIL MACHINE OPERATOR Coronary artery disease involving chenega coronary artery of chenega heart without angina pectoris Hyperlipidemia associated with type 2 diabetes mellitus (HCC) EGFR STAT 02/18/2022 1:07 PM CDT from Last 3 Months or Most Recently Relevant to Health Maintenance Results * POCT lipid panel (08/23/2024 2:54 PM COIL MACHINE OPERATOR) Cholesterol, POC 234 mg/dL HDL, POC 48 mg/dL Triglycerides, POC 305 mg/dL LDL Cholesterol POC 125 mg/dL Chol/HDL Ratio, POC 4.9 Non-HDL Cholesterol, POC 186 mg/dL Cholesterol Total, POC 234 mg/dL Capillary blood 08/23/2024 2 :54 PM COIL MACHINE OPERATOR Rhett Ramírez MD POINT OF CARE TEST [...] LAB BLOOD ORDERABLES Final Re sult [facility] [address] [facility] Department [place] [address] from Last 3 Months or Most Recently Relevant to Health Maintenance Insurance [employer] OPEN ACCESS CIGNA OPEN ACCESS Care Teams Tombstone Carver Relationship Specialty Start Date End Date Roland Rojas DO [address] [place], [place] [address], [place] [address] PCP - General Family Medicine 01/24/24
--- OUTSIDE RECORDS SUMMARY | 2025-02-19 22:41 | XMS_ITS | Clinical Summary ---
Author Organization [facility] Address [address] [place] [address] Phone Care Team Providers Care Leather Stripping Machine Operator Name Role Phone Radha Kaminski Primary Care Provider [phone] Allergies Active Allergy Reactions Criticality Noted Date Comments Prochlorperazine Other (see comments),Shortness of breath High 11/26/2016 Lockjaw Lockjaw Medications aspirin (ST DUDLEY) 81 MG EC tablet Take 81 mg by mouth daily Active buPROPion XL (WELLBUTRIN XL) 150 MG 24 hr tablet 2 Active Cholecalciferol (Vitamin D3) 1.25 MG (15975 UT) capsule Twice a week 2 Active [...] Comments Influenza Vaccine (Season Ended) [address] [place] [address] Care Teams Leather Stripping Machine Operator Relationship Specialty Start Date End Date Radha Kaminski [facility] [place] [address] PCP - General Family Medicine 06/21/22
--- OUTSIDE RECORDS SUMMARY | 2025-02-19 22:41 | XMS_ITS | Encounter Summary ---
Author Organization [facility] Address [address] [facility] [place] [address] Care Team Providers Care Taker Off Drying Kiln Name Role Phone Radha Kaminski MYRON-MANAGER SOURCING Primary Care Provider [phone] Harmony Mcrae MD Unavailable Encounter Details Date Type Department Care Team (Late st Contact Info) Description 06/20/2023 Lab Requisition [facility] - DermPath Lab [address] [facility] [place] [address] Andrzej Aguilar MD [address] [place] [address] Social History Tobacco Use Types Packs/Day Years Used Date Smoking Tobacco: Never Smokeless Tobacco: Never Alcohol Use Standard Drinks/Week Comments Never 0 (1 standard drink = 0.6 oz pur e alcohol) Comments Unknown Sex and Gender Information Value Date Recorded Sex Assigned at Not on file Legal Sex Female 5:06 PM RADIOLOGY TECH Gender Identity Not on file Sexual Orientation Not on file documented as of this encounter Plan of Treatment Not on file documented as of this encounter Procedures Procedure Name Priority Date/Time Associated Diagnosis Comments DERMATOPATHOLOGY Routine 06/20/2023 12:0 0 AM CDT documented in this encounter Results * DERMATOPATHOLOGY (06/20/2023 12:00 AM CDT) Case Report Dermatopathology Report Case: [id number] Authorizing Provider: Andrzej Aguilar MD Collected: 06/20/2023 12:00 AM Ordering Location: [facility] DermPath Lab Received: 06/21/2023 06:10 AM Pathologist: [...] characteristic determined by the Dermatopathology Laboratory at [facility], directed by Dr. Jean-Pierre Miller. These tests need not be, and therefore are not, approved by the [place] Food and Drug Administration. The tests are used for clinical purposes. Billing Codes Specimen Charges Stain Charges 21394 1 85975 1 4:35 PM CDT DERMATOPATHOLOGY LABORATORY Embedded Images 4:35 PM CDT DERMATOPATHOLOGY LABORATORY Pathology/Cytolog y TISSUE SPECIMEN FROM SKIN / Unknown 06/20/2023 06/21/2023 6:10 AM CDT us Andrzej Aguilar MD LAB - PATHOLOGY/CYTOLOGY ORDERAB LES Final Result DERMATOPATHOLOGY LABORATORY [facility] - Department of Dermatology [facility] Medicine [address] [facility], [address]rd Floor [address] [phone] documented in this encounter Visit Diagnoses Not on filedocumented in this encounter Care Teams Taker Off Drying Kiln Relationship Specialty Start Date End Date Radha Kaminski APRN-MANAGER SOURCING [address] [facility] [address] [place] [phone] PCP - General Nurse Practitioner Family 12/03/21 [place] [address] [place] [address] [place] [phone] Rheumatology 12/03/21 documented as of this encounter
--- OUTSIDE RECORDS SUMMARY | 2025-02-19 22:41 | XMS_ITS | Clinical Summary ---
Author Organization [facility] Address [address] [facility] [place] [address] Care Team Providers Care Crew Lead Name Role Phone Radha Kaminski MYRON-TECHNOLOGY ASSISTANT Primary Care Provider [phone] Harmony Mcrae MD Unavailable Source Comments [facility],non-owned Affiliates and Associated Physician Practices is amultiple site organization consisting of ambulatory clinics and hospital sitesin [place], [place], [place] and [place]. This disclosure is being madepursuant to the Care Everywhere program and may not contain all information available regarding this patient. Last updated 18.[facility] Allergies Active Allergy Reactions Criticality Noted Date [...] fluticasone propionate (FLONASE) 50 MCG/ACT nasal spray [place] 2 (two) sprays into each nostril once daily Active blood glucose (Gemvara.comTOUCH ULTRA) test strip USE TO TEST THREE TIMES A DAY 1 Active estradiol (ESTRACE) 2 MG tablet Take 1 (one) tablet by mouth every 24 hours Active Multiple Vitamins-Protein Scientist als (MULTI VITAMIN/MINERA LS) TABS Take 1 (one) tablet by mouth once daily Active [place]-3 Fatty Acids (FISH OIL) 1000 MG capsule Take 1 (one) capsule by mouth once daily Active Cholecalcifero l 1.25 MG (34874 UT) Take 1 capsule by mouth every [...] naloxone HCl (Narcan) 4 MG/0.1ML nasal spray [place] 1 (one) spray into the nose Active [...] day by topical route. Active HYDROcodone-ac etaminophen (Geddes) 5-325 MG tablet Take 1 (one) tablet by mouth two times daily at 4am and 4pm Active indomethacin (Indocin) 50 MG capsule TAKE 1 CAPSULE BY MOUTH THREE TIMES A DAY ADMINISTER WITH FOOD OR MILK Active mupirocin (Bactroban) 2 % ointment 1 APPLIC TOPICALLY TWICE A DAY Active nystatin (Mycostatin) 965975 UNIT/ML suspension Take 5 mL 4 times [...] on file Legal Sex Female 5:06 PM CLAM TREADER Gender Identity Not on file Sexual Orientation Not on file Last Filed Vital Signs Vital Sign Reading Time Taken Comments Blood Pressure 122/68 10/06/2023 2:03 PM CLAM TREADER Pulse 79 10/06/2023 2:03 PM CLAM TREADER Temperature 36.6 C (97.9 F) 01/07/2022 2:03 PM CDT Respiratory Rate 16 08/02/2023 2:35 PM CLAM TREADER Oxygen Saturation 97% 08/02/2023 2:35 PM CLAM TREADER Inhaled Oxygen Concentration - - Weight 93.9 kg (207 lb) 10/06/2023 2:03 PM CLAM TREADER Height 170.2 cm (5' 7) 10/06/2023 2:03 PM CLAM TREADER Body Mass Index 32.42 10/06/2023 2:03 PM CLAM TREADER Plan of Treatment Health Maintenance Due Date [...] COMPREHENSIVE METABOLIC PANEL Routine 08/02/2023 3:29 PM CLAM TREADER Arthralgia, unspecified joint HEPATITIS SCREEN ACUTE ([facility]) Routine 08/02/2023 3:28 PM CLAM TREADER Arthralgia, unspecified joint from Last 3 Months or Most Recently Relevant to Health Maintenance Results * (ABNORMAL) COMPREHENSIVE METABOLIC PANEL (08/02/2023 3:29 PM CLAM TREADER) Glucose 95 70 - 99 mg/dL [facility] [...] BLOOD SPECIMEN / Unknown 08/02/2023 3:29 PM CLAM TREADER 08/02/2023 Narrative Resulting Agency Comment Lab Testing performed at: [facility] [id number] [id number] Harmony Mcrae MD LAB - CHEMISTRY ORDERABLES Final Result [facility] INSURANCE BILL [address] [place] [address] * HEPATITIS SCREEN ACUTE ([facility]) (08/02/2023 3:28 PM CLAM TREADER) Hepatitis A Virus Antibody IgM Negative Negative [facility] INSURANCE BILL Hepatitis B Virus Surface Antigen Negative Negative [facility] INSURANCE BILL Hepatitis B Core Virus Antibody IgM Negative Negative [facility] INSURANCE BILL Hepatitis C Antibody Non Reactive Non Reactive [facility] INSURANCE BILL Blood BLOOD SPECIMEN / Unknown 08/02/2023 3:28 PM CLAM TREADER 08/02/2023 Narrative Resulting Agency Comment [facility] [address] [facility] [id number] Harmony Mcrae MD LAB - CHEMISTRY ORDERABLES Final Result [facility] INSURANCE BILL [address] [place] [address] from Last 3 Months or Most Recently Relevant to Health Maintenance Insurance Care Teams Crew Lead Relationship Specialty Start Date End Date Radha Kaminski APRN-SCOTT [facility] [address] [place] [address] PCP - General Nurse Practitioner Family 12/03/21 [place] [address] [place] [address] [place] [phone] Rheumatology 12/03/21
--- OUTSIDE RECORDS SUMMARY | 2025-02-19 22:41 | XMS_ITS | Clinical Summary ---
Author Organization [facility] [address] [employer] Address [address] [place] [address] Care Team Providers Care Bench Examiner Name Role Phone Roland Rojas DO Primary [...] region 05/17/2023 Coronary artery disease invo lving [place] coronary artery of [place] heart without angina pectoris 04/19/2023 Essential hypertension [...] (01/24/2024): Added automatically from request for surgery [id number] Nonspecific abnormal results of function study o [...] on file Legal Sex Female 7:45 PM LANGUAGE INTERPRETER Gender Identity Not on file Sexual Orientation Not on file Obstetrics History Last Filed Vital Signs Vital Sign Reading Time Taken Comments Blood Pressure 118/82 08/23/2024 2:00 PM LANGUAGE INTERPRETER Pulse 82 08/23/2024 2:00 PM LANGUAGE INTERPRETER Temperature 36.5 C (97.7 F) 02/18/2022 2:55 PM CDT Respiratory Rate 17 05/17/2023 1:17 PM CDT Oxygen Saturation 99% 08/23/2024 2:00 PM LANGUAGE INTERPRETER Inhaled Oxygen Concentration - - Weight 107 kg (236 lb) 08/23/2024 2:00 PM LANGUAGE INTERPRETER Height 170.2 cm (5' 7) 08/23/2024 2:00 PM LANGUAGE INTERPRETER Body Mass Index 36.96 08/23/2024 2:00 PM LANGUAGE INTERPRETER Plan of Treatment Health Maintenance Due Date [...] POCT LIPID PANEL Routine 08/23/2024 2:54 PM LANGUAGE INTERPRETER Coronary artery disease involving [place] coronary artery of [place] heart without angina pectoris Hyperlipidemia associated with type 2 diabetes mellitus (HCC) EGFR STAT 02/18/2022 1:07 PM CDT from Last 3 Months or Most Recently Relevant to Health Maintenance Results * POCT lipid panel (08/23/2024 2:54 PM LANGUAGE INTERPRETER) Cholesterol, POC 234 mg/dL HDL, POC 48 mg/dL Triglycerides, POC 305 mg/dL LDL Cholesterol POC 125 mg/dL Chol/HDL Ratio, POC 4.9 Non-HDL Cholesterol, POC 186 mg/dL Cholesterol Total, POC 234 mg/dL Capillary blood 08/23/2024 2 :54 PM LANGUAGE INTERPRETER Rhett Ramírez MD POINT OF CARE TEST [...] ORDERABLES Final Re sult [facility] [address] [facility] Department [place] [address] from Last 3 Months or Most Recently Relevant to Health Maintenance Insurance CIG[employer] OPEN ACCESS CIGNA OPEN ACCESS CIGNA OPEN ACCESS [facility] OPEN ACCESS Care Teams Bench Examiner Relationship Specialty Start Date End Date Roland Rojas DO [address] [place] [address] PCP - General Family Medicine 01/24/24
[2025-02-19] MEDS: CLINDAMYCIN HCL 150 MG CAP 300 MG PO (23:48)
[2025-02-19 23:52] VITALS: BP 138/87; PULSE 72; RESP 20; O2SAT 97
== END 2025-02-19 23:52 | disposition home or self-care (01) ==
PROVIDERS: Emergency Provider Emergency Medicine; PCP Family Medicine
DX: L02.214 Cutaneous abscess of groin (principal); L03.314 Cellulitis of groin
CPT/HCPCS: 99283

== ENCOUNTER 2025-02-26 11:59 | Outpatient (CLI) | payer OTHER, MEDICAID, SELFPAY ==
--- NOTE | ~2025-02-26 | XR_ITS ---
XR finger 5th RT min 2V Ordering provider: Roland Rojas, DO History: . ?BLUNT TRAUMA TO 5TH FINGER X1DAY AGO . Comparison: October 17, 2024 FINDINGS: BONES: No acute fracture or dislocation. Slight deformity in the distal interphalangeal joint which i s unchanged from previous examination. JOINT SPACES: Normal. SOFT TISSUES: Soft tissue swelling over the fifth metacarpal bone. IMPRESSION: No acute osseous abnormality. Reviewed, dictated and finalized at location A.
--- OUTSIDE RECORDS SUMMARY | 2025-02-26 13:04 | XMS_ITS | Clinical Summary ---
Author Organization [facility] Address [address] [place] [address] Phone Care Team Providers Care Wafer Substrate Tester Name Role Phone Radha Kaminski Primary Care Provider [phone] Allergies Active Allergy Reactions Criticality Noted Date Comments Prochlorperazine Other (see comments),Shortness of breath High 11/26/2016 Lockjaw Lockjaw Medications aspirin (ST DUDLEY) 81 MG EC tablet Take 81 mg by mouth daily Active buPROPion XL (WELLBUTRIN XL) 150 MG 24 hr tablet 2 Active Cholecalciferol (Vitamin D3) 1.25 MG (26607 UT) capsule Twice a week 2 Active [...] Comments Influenza Vaccine (Season Ended) [address] [place] [address] [address] [place] [address] Care Teams Wafer Substrate Tester Relationship Specialty Start Date End Date Radha Kaminski [facility] [place] [phone] PCP - General Family Medicine 06/21/22
--- OUTSIDE RECORDS SUMMARY | 2025-02-26 13:04 | XMS_ITS | Referral Summary ---
Author Organization [facility] [address] [employer] Address [address] [place] [address] Care Team Providers Care Telephone Technician Name Role Phone Roland Rojas DO [...] a day Active glimepiride (AMARYL) 2 mg tabletIndicati ons:type 2 diabetes mellitus Take 1 tablet (2 [...] EVERY 8 HOURS NEEDED FOR MUSCLE SPASM 03/01/20 23 Active predniSONE (DELTASONE) 5 mg tablet 02/01/20 23 Active methylphenidat e HCl 72 mg tablet extended release 24hr Take by mouth every morning 03/14/20 23 Active buPROPion XL (WELLBUTRIN XL) 150 mg 24 hr tablet Take 1 tablet (150 mg total) by mouth every morning 02/11/20 23 Active Vraylar 3 mg capsule capsule Take 1 capsule (3 mg total) by mouth daily 06/20/20 23 Active oxyCODONE 5 mg tablet, oral only Take 5 mg by mouth 3 (three) times a day as needed Active furosemide (LASIX) 20 mg tablet Take 1 tablet (20 mg total) by mouth daily as needed 01/18/20 24 Active cyanocobalamin (Vitamin B-12) 1,000 mcg/mL injection Inject into the muscle as instructed once a week 08/01/[address] (CYMBALTA) 30 mg capsule Take 1 capsule (30 mg total) by mouth daily 06/26/20 24 Active minoxidiL (LONITEN) 2.5 mg tablet Take 0.5 tablets (1.25 mg total) by mouth daily 01/30/20 24 Active magnesium oxide (MAG-OX) 400 mg (241.3 mg elemental magnesium) tabletIndicati ons:hypomagnes emia Take 1 tablet (400 mg total) by mouth daily 90 tablet 11/29/19 25 Active rosuvastatin (CRESTOR) 40 mg tablet TAKE 1 TABLET BY MOUTH EVERY DAY AT NIGHT 90 tablet 3 02/26/20 25 Active rosuvastatin (CRESTOR) 40 mg tablet Take 1 tablet (40 mg total) by mouth nightly 90 tablet 11/29/19 25 025 Discontinued Active Problems Problem Noted Date Diagnosed Date Pain in joint involving ankle and foot 4 Chronic pain syndrome 06/22/2023 Postlaminectomy syndrome 05/17/2023 Cervical radiculopathy 05/17/2023 Radiculopathy, lumbosacral region 05/17/2023 Coronary artery disease invo lving coquille coronary artery of [place]qu[place] heart without angina pectoris 04/19/2023 Essential hypertension [...] (01/24/2024): Added automatically from request for surgery [id number] Nonspecific abnormal results of function study o [...] on file Legal Sex Female 7:45 PM SUBSTATION OPERATOR HELPER GENERATION Gender Identity Not on file Sexual Orientation Not on file Last Filed Vital Signs Vital Sign Reading Time Taken Comments Blood Pressure 118/82 08/23/2024 2:00 PM SUBSTATION OPERATOR HELPER GENERATION Pulse 82 08/23/2024 2:00 PM SUBSTATION OPERATOR HELPER GENERATION Temperature 36.5 C (97.7 F) 02/18/2022 2:55 PM CDT Respiratory Rate 17 05/17/2023 1:17 PM CDT Oxygen Saturation 99% 08/23/2024 2:00 PM SUBSTATION OPERATOR HELPER GENERATION Inhaled Oxygen Concentration - - Weight 107 kg (236 lb) 08/23/2024 2:00 PM SUBSTATION OPERATOR HELPER GENERATION Height 170.2 cm (5' 7) 08/23/2024 2:00 PM SUBSTATION OPERATOR HELPER GENERATION Body Mass Index 36.96 08/23/2024 2:00 PM SUBSTATION OPERATOR HELPER GENERATION Plan of Treatment Not on file Procedures Procedure Name Priority Date/Time Associated Diagnosis Comments POCT LIPID PANEL Routine 08/23/2024 2:54 PM SUBSTATION OPERATOR HELPER GENERATION Coronary artery disease involving coquille coronary artery of [place]qu[place] heart without angina pectoris Hyperlipidemia associated with type 2 diabetes mellitus (HCC) EGFR STAT 02/18/2022 1:07 PM CDT from Last 3 Months or Most Recently Relevant to Health Maintenance Results * POCT lipid panel (08/23/2024 2:54 PM SUBSTATION OPERATOR HELPER GENERATION) Cholesterol, POC 234 mg/dL HDL, POC 48 mg/dL Triglycerides, POC 305 mg/dL LDL Cholesterol POC 125 mg/dL Chol/HDL Ratio, POC 4.9 Non-HDL Cholesterol, POC 186 mg/dL Cholesterol Total, POC 234 mg/dL Capillary blood 08/23/2024 2 :54 PM SUBSTATION OPERATOR HELPER GENERATION Rhett Ramírez MD POINT OF CARE TEST ORDERA BLES Final Result * eGFR (02/18/2022 1:07 PM CDT) eGFR 67 mL/min/1. 73 m2 [facility]EL [facility]OPE[facility] Comment: Interpretive Data Reference Interval Normal >/= [...] MD LAB BLOOD ORDERABLES Final Re sult Performing Organization Address City/State/[facility] Co de Phone Number AMANUEL LOPEZ [address] [facility] Department [place] [address] from Last 3 Months or Most Recently Relevant to Health Maintenance Insurance [employer] OPEN ACCESS CIGNA OPEN ACCESS CIGNA OPEN ACCESS Care Teams Telephone Technician Relationship Specialty Start Date End Date Roland Rojas DO [address] [place] [address] PCP - General Family Medicine 01/24/24
--- OUTSIDE RECORDS SUMMARY | 2025-02-26 13:04 | XMS_ITS | Clinical Summary ---
Author Organization [facility] [address] [employer] Address [address] [place] [address] Care Team Providers Care Neighborhood Service Center Director Name Role Phone Roland Rojas DO Primary [...] region 05/17/2023 Coronary artery disease invo lving [place] coronary artery of [place] heart without angina pectoris 04/19/2023 Essential hypertension [...] (01/24/2024): Added automatically from request for surgery [id number] Nonspecific abnormal results of function study o [...] on file Legal Sex Female 7:45 PM PIZZA DELIVERY DRIVER Gender Identity Not on file Sexual Orientation Not on file Obstetrics History Last Filed Vital Signs Vital Sign Reading Time Taken Comments Blood Pressure 118/82 08/23/2024 2:00 PM PIZZA DELIVERY DRIVER Pulse 82 08/23/2024 2:00 PM PIZZA DELIVERY DRIVER Temperature 36.5 C (97.7 F) 02/18/2022 2:55 PM CDT Respiratory Rate 17 05/17/2023 1:17 PM CDT Oxygen Saturation 99% 08/23/2024 2:00 PM PIZZA DELIVERY DRIVER Inhaled Oxygen Concentration - - Weight 107 kg (236 lb) 08/23/2024 2:00 PM PIZZA DELIVERY DRIVER Height 170.2 cm (5' 7) 08/23/2024 2:00 PM PIZZA DELIVERY DRIVER Body Mass Index 36.96 08/23/2024 2:00 PM PIZZA DELIVERY DRIVER Plan of Treatment Health Maintenance Due Date [...] POCT LIPID PANEL Routine 08/23/2024 2:54 PM PIZZA DELIVERY DRIVER Coronary artery disease involving [place] coronary artery of [place] heart without angina pectoris Hyperlipidemia associated with type 2 diabetes mellitus (HCC) EGFR STAT 02/18/2022 1:07 PM CDT from Last 3 Months or Most Recently Relevant to Health Maintenance Results * POCT lipid panel (08/23/2024 2:54 PM PIZZA DELIVERY DRIVER) Cholesterol, POC 234 mg/dL HDL, POC 48 mg/dL Triglycerides, POC 305 mg/dL LDL Cholesterol POC 125 mg/dL Chol/HDL Ratio, POC 4.9 Non-HDL Cholesterol, POC 186 mg/dL Cholesterol Total, POC 234 mg/dL Capillary blood 08/23/2024 2 :54 PM PIZZA DELIVERY DRIVER Rhett Ramírez MD POINT OF CARE TEST [...] LAB BLOOD ORDERABLES Final Re sult [facility] [address] [facility] Department [place] [address] from Last 3 Months or Most Recently Relevant to Health Maintenance Insurance CIGNA OPEN ACCESS CIGNA OPEN ACCESS [facility] OPEN ACCESS Care Teams Neighborhood Service Center Director Relationship Specialty Start Date End Date Roland Rojas DO [address] [place] [address] PCP - General Family Medicine 01/24/24
--- OUTSIDE RECORDS SUMMARY | 2025-02-26 13:04 | XMS_ITS | Clinical Summary ---
Author Organization [facility] Address [address] [place] [place] [address] Care Team Providers Care Long Term Care Phlebotomist Name Role Phone Radha Kaminski MYRON-JEWELRY MECHANIC Primary Care Provider [phone] Harmony Mcrae MD Unavailable Source Comments [facility],non-owned Affiliates and Associated Physician Practices is amultiple site organization consisting of ambulatory clinics and hospital sitesin [place], [place], [place] and [place]. This disclosure is being madepursuant to the Care Everywhere program and may not contain all information available regarding this patient. Last updated 18.[facility] Allergies Active Allergy Reactions Criticality [...] fluticasone propionate (FLONASE) 50 MCG/ACT nasal spray Hibbs 2 (two) sprays into each nostril once daily Active blood glucose (MetabiotaTOUCH ULTRA) test strip USE TO TEST THREE TIMES A DAY 1 Active estradiol (ESTRACE) 2 MG tablet Take 1 (one) tablet by mouth every 24 hours Active Multiple Vitamins-[place] als (MULTI VITAMIN/MINERA LS) TABS Take 1 (one) tablet by mouth once daily Active [place]-3 Fatty Acids (FISH OIL) 1000 MG capsule Take 1 (one) capsule by mouth once daily Active Cholecalcifero l 1.25 MG (09325 UT) Take 1 capsule by mouth every [...] naloxone HCl (Narcan) 4 MG/0.1ML nasal spray Hibbs 1 (one) spray into the nose Active [...] day by topical route. Active HYDROcodone-ac etaminophen (Ecru) 5-325 MG tablet Take 1 (one) tablet by mouth two times daily at 4am and 4pm Active indomethacin (Indocin) 50 MG capsule TAKE 1 CAPSULE BY MOUTH THREE TIMES A DAY ADMINISTER WITH FOOD OR MILK Active mupirocin (Bactroban) 2 % ointment 1 APPLIC TOPICALLY TWICE A DAY Active nystatin (Mycostatin) 460935 UNIT/ML suspension Take 5 mL 4 times [...] on file Legal Sex Female 5:06 PM GRAPHICS PROGRAMMER Gender Identity Not on file Sexual Orientation Not on file Last Filed Vital Signs Vital Sign Reading Time Taken Comments Blood Pressure 122/68 10/06/2023 2:03 PM GRAPHICS PROGRAMMER Pulse 79 10/06/2023 2:03 PM GRAPHICS PROGRAMMER Temperature 36.6 C (97.9 F) 01/07/2022 2:03 PM CDT Respiratory Rate 16 08/02/2023 2:35 PM GRAPHICS PROGRAMMER Oxygen Saturation 97% 08/02/2023 2:35 PM GRAPHICS PROGRAMMER Inhaled Oxygen Concentration - - Weight 93.9 kg (207 lb) 10/06/2023 2:03 PM GRAPHICS PROGRAMMER Height 170.2 cm (5' 7) 10/06/2023 2:03 PM GRAPHICS PROGRAMMER Body Mass Index 32.42 10/06/2023 2:03 PM GRAPHICS PROGRAMMER Plan of Treatment Health Maintenance Due Date [...] COMPREHENSIVE METABOLIC PANEL Routine 08/02/2023 3:29 PM GRAPHICS PROGRAMMER Arthralgia, unspecified joint HEPATITIS SCREEN ACUTE ([facility]) Routine 08/02/2023 3:28 PM GRAPHICS PROGRAMMER Arthralgia, unspecified joint from Last 3 Months or Most Recently Relevant to Health Maintenance Results * (ABNORMAL) COMPREHENSIVE METABOLIC PANEL (08/02/2023 3:29 PM GRAPHICS PROGRAMMER) Glucose 95 70 - 99 mg/dL [facility] [...] BLOOD SPECIMEN / Unknown 08/02/2023 3:29 PM GRAPHICS PROGRAMMER 08/02/2023 Narrative Resulting Agency Comment Lab Testing performed at: [email or web address] [id number] [facility] [id number] Harmony Mcrae MD LAB - CHEMISTRY ORDERABLES Final Result [facility] INSURANCE BILL [address] [place] [address] * HEPATITIS SCREEN ACUTE ([facility]) (08/02/2023 3:28 PM GRAPHICS PROGRAMMER) Hepatitis A Virus Antibody IgM Negative Negative [facility] INSURANCE BILL Hepatitis B Virus Surface Antigen Negative Negative [facility] INSURANCE BILL Hepatitis B Core Virus Antibody IgM Negative Negative [facility] INSURANCE BILL Hepatitis C Antibody Non Reactive Non Reactive [facility] INSURANCE BILL Blood BLOOD SPECIMEN / Unknown 08/02/2023 3:28 PM GRAPHICS PROGRAMMER 08/02/2023 Narrative Resulting Agency Comment [facility] performed at: [facility] [address] [facility] [id number] Harmony Mcrae MD LAB - CHEMISTRY ORDERABLES Final Result [facility] INSURANCE BILL [address] [place] [address] from Last 3 Months or Most Recently Relevant to Health Maintenance Insurance Care Teams Long Term Care Phlebotomist Relationship Specialty Start Date End Date Radha Kaminski APRN-SCOTT [address] [facility] [address] [place] [phone] PCP - General Nurse Practitioner Family 12/03/21 [place] [address] [place] [address] [place] [phone] Rheumatology 12/03/21
--- OUTSIDE RECORDS SUMMARY | 2025-02-26 13:04 | XMS_ITS | Encounter Summary ---
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 Name Role Phone Radha Kaminski MYRON-STAVE JOINTER Primary Care Provider [phone] Harmony Mcrae MD Unavailable Encounter Details Date Type Department Care Team (Late st Contact Info) Description 06/20/2023 Lab Requisition [facility] [address] [facility] [place] [address] Andrzej Aguilar MD [address] [place] [address] Social History Tobacco Use Types Packs/Day Years Used Date Smoking Tobacco: Never Smokeless Tobacco: Never Alcohol Use Standard Drinks/Week Comments Never 0 (1 standard drink = 0.6 oz pur e alcohol) Comments Unknown Sex and Gender Information Value Date Recorded Sex Assigned at Not on file 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 [employer] Gender Identity Not on file Sexual Orientation Not on file documented as of this encounter Plan of Treatment Not on file documented as of this encounter Procedures Procedure Name Priority Date/Time Associated Diagnosis Comments DERMATOPATHOLOGY Routine 06/20/2023 12:0 0 AM CDT documented in this encounter Results * DERMATOPATHOLOGY (06/20/2023 12:00 AM CDT) Case Report Dermatopathology Report Case: [id number] Authorizing Provider: Andrzej Aguilar MD Collected: 06/20/2023 12:00 AM Ordering Location: [facility] Received: 06/21/2023 06:10 AM Pathologist: [...] characteristic determined by the Dermatopathology Laboratory at [facility], directed by Dr. Jean-Pierre Miller. These tests need not be, and therefore are not, approved by the [place] Food and Drug Administration. The tests are used for clinical purposes. Billing Codes Specimen Charges Stain Charges 20751 1 71014 1 4:35 PM CDT DERMATOPATHOLOGY LABORATORY Embedded Images 4:35 PM CDT DERMATOPATHOLOGY LABORATORY Pathology/Cytolog y TISSUE SPECIMEN FROM SKIN / Unknown 06/20/2023 06/21/2023 6:10 AM CDT us Andrzej Aguilar MD LAB - PATHOLOGY/CYTOLOGY ORDERAB LES Final Result DERMATOPATHOLOGY LABORATORY [facility] Dermatology [facility] Medicine [address] [facility] [facility] [phone] documented in this encounter Visit Diagnoses Not on filedocumented in this encounter Care Teams Grooving Machine Operator Relationship Specialty Start Date End Date Radha Kaminski APRN-STAVE JOINTER [address] [facility] [address] [place] [phone] PCP - General Nurse Practitioner Family 12/03/21 [place] [address] [place] [address] [place] [phone] Rheumatology 12/03/21 documented as of this encounter
== END 2025-02-26 12:00 | disposition home or self-care (01) ==
LOC: CHSIMG 12:01
PROVIDERS: PCP Family Medicine; Visit Provider Family Medicine
DX: M79.644 Pain in right finger(s) (principal)
CPT/HCPCS: 73140

== ENCOUNTER 2025-03-02 22:37 | Emergency (ER) | payer OTHER, MEDICAID, SELFPAY ==
--- OUTSIDE RECORDS SUMMARY | 2025-03-02 22:40 | XMS_ITS | Data Portability ---
Author Organization [facility] OFFICE Address [address] [place] [address] Assessment Encounter Date Assessment Date Assessment LastModified [...] current medications, and medical follow-up as noted. [email or web address] Not available 02/03/2022 11:19:05 03/03/2022 03/03/2022 Discussed with patient findings, diagnosis, and prognosis. Discussed evaluation and treatment options including risks and benefits with patient, and patient expressed understanding. The following interventions were recommended: heart healthy low-fat, low-sodium diet, continue regular exercise,maintain appropriate weight, continue current medications, and medical follow-up as noted. [email or web address] Not available 03/03/2022 17:54:51 05/05/2022 05/05/2022 Discussed with patient findings, diagnosis, and prognosis. Discussed evaluation and treatment options including risks and benefits with patient, and patient expressed understanding. The following interventions were recommended: heart healthy low-fat, low-sodium diet, continue regular exercise,maintain appropriate weight, continue current medications, and medical follow-up as noted. [email or web address] Not available 05/05/2022 15:03:06 10/27/2022 10/27/2022 Discussed with patient findings, diagnosis, and prognosis. Discussed evaluation and treatment options including risks and benefits with patient, and patient expressed understanding. The following interventions were recommended: heart healthy low-fat, low-sodium diet, continue regular exercise,maintain appropriate weight, continue current medications, and medical follow-up as noted. [email or web address] Not available 10/27/2022 12:40:07 01/05/2023 01/05/2023 Discussed with patient findings, diagnosis, and prognosis. Discussed evaluation and treatment options including risks and benefits with patient, and patient expressed understanding. The following interventions were recommended: heart healthy low-fat, low-sodium diet, continue regular exercise,maintain appropriate weight, continue current medications, and medical follow-up as noted. [email or web address] Not available 01/05/2023 14:29:08 Plan of Treatment Reminders Order Date Submit Date Provider Last Modified By Organization Details Last Modified Time Details Appointments None recorded. Lab None recorded. Referral None recorded. Procedures None recorded. Surgeries None recorded. Imaging None recorded. Medication Orders rosuvastati n 20 mg tablet 2021 [facility], [address] [place] [address], [address], 17:57:13 magnesium oxide 400 mg (241.3 mg magnesium) tablet 2021 022 [email or web address] [facility], [address] [place] [address], [address], 11:14:53 atorvastati n 80 mg tablet 2021 022 [email or web address] [facility], [address] [place] [address], [address], 17:40:55 icosapent ethyl 1 gram capsule 2021 022 [email or web address], [address] [place] [address], [address], 11:47:50 Patient TargetsNo targets recorded. Patient Instructions Encounter Date Encounter Id Patient Instructions Last Modified By Organization Details Last Modified Time 02/03/2022 [id number] dizziness: care instructions [email or web address] Not available 02/03/2022 11:47:45 leg and ankle edema: care instructions [email or web address] Not available 02/03/2022 11:47:46 high blood pressure: care instructions [email or web address] Not available 02/03/2022 11:47:45 learning about high blood pressure Not available 02/03/2022 11:47:46 aortic valve regurgitation: care instructions [email or web address] Not available 02/03/2022 11:47:45 03/03/2022 [id number] leg and ankle edema: care instructions Not available 03/03/2022 17:57:11 dizziness: care instructions [email or web address] Not available 03/03/2022 17:57:11 high blood pressure: care instructions [email or web address] Not available 03/03/2022 17:57:11 learning about high blood pressure Not available 03/03/2022 17:57:11 aortic valve regurgitation: care instructions [email or web address] Not available 03/03/2022 17:57:11 05/05/2022 [id number] leg and ankle edema: care instructions [email or web address] Not available 05/05/2022 15:19:08 dizziness: care instructions [email or web address] Not available 05/05/2022 15:19:08 high blood pressure: care instructions [email or web address] Not available 05/05/2022 15:19:08 learning about high blood pressure [email or web address] Not available 05/05/2022 15:19:08 aortic valve regurgitation: care instructions [email or web address] Not available 05/05/2022 15:19:08 10/27/2022 [id number] leg and ankle edema: care instructions Not available 10/27/2022 12:49:16 dizziness: care instructions Not available 10/27/2022 12:49:16 high blood pressure: care instructions [email or web address] Not available 10/27/2022 12:49:16 learning about high blood pressure [email or web address] Not available 10/27/2022 12:49:16 aortic valve regurgitation: care instructions [email or web address] Not available 10/27/2022 12:49:16 01/05/2023 [id number] leg and ankle edema: care instructions [email or web address] Not available 01/05/2023 14:34:19 dizziness: care instructions [email or web address] Not available 01/05/2023 14:34:18 high blood pressure: care instructions [email or web address] Not available 01/05/2023 14:34:19 learning about high blood pressure [email or web address] Not available 01/05/2023 14:34:18 aortic valve regurgitation: care instructions [email or web address] Not available 01/05/2023 14:34:18 Reason for Referral [...] observ ation record ed. [facility] [address] [place] [address] [address], [place], [address], 02/23/2022 09:20:36 02/19/20 22 02/10/2022 US, echoc [...] 234. 02/18/22:PT 12.8,INR 1.0,aPTT 24. Alyssa kolb [place] - [facility] 07/07/2022 18:09:35 Covid-19 Counseling* : 02/17/22: Not detected Alyssa kolb [place] - [facility] 07/07/2022 18:26:45 Problems Name Problem SNOMED Code Status Onset Date Resolution Date Notes Provider Name and Address Organization Details Recorded Time Aortic valve regurgitati on 88671996 Active 2021 Adan kolb [facility] 2 16:09:41 Coronary arterioscle rosis 48329331 Active 2021 Adan kolb [facility] 2 17:36:49 Pre-surgery evaluation Active 2021 Adan kolb [place] - [facility] 2 17:51:16 Anxiety 30971340 Active 2016 Maty kolb [facility] 7 16:38:50 Depressive disorder 74358198 Active 2016 Maty kolb [facility] 7 16:38:57 Diabetes mellitus 59366165 Active 2016 Maty kolb [facility] 7 16:39:04 Essential hypertensio n 34043889 Active 2016 Adan kolb [facility] 7 17:47:48 History of obesity 474228486 Active 2016 Elissa kolb [facility] 7 14:54:52 Atypical chest pain 871634090 Active 2016 Elissa kolb [facility] 7 14:55:31 Dyslipidemi a 301494844 Active 2016 Elissa Mcnair [facility] 7 14:55:41 Hypercholes terolemia 44407817 Active 2016 Elissa Mcnair [facility] 7 14:56:07 Tachycardia 1756489 Active 2016 Adan Dobbins [facility] 7 13:42:11 Pain in bilateral legs 2274466043596 9108 Active 2017 Adan Dobbins [facility] 8 14:26:05 Dizziness 743798804 Active 2017 Adan Dobbins [facility] 8 18:15:46 Edema of lower extremity 674305589 Active 2018 Shah Mesleni [facility] 9 12:16:31 Problem Notes None recorded. Procedures Surgical History Date Name Laterality Status Provider Name and Address Organization Details Recorded Time Hysterectomy completed [facility] 06/16/2017 16:39:23 Back Surgery completed [facility] 06/16/2017 16:39:34 Knee arthroscopy/surge ry completed [facility] 06/16/2017 16:39:53 Appendectomy completed [facility] 06/16/2017 16:40:10 Imaging Results None recorded. Procedure Notes None recorded. Medical Equipment None Reported. Allergies Allergen ID Allergen Name Allergen Category Reaction Reaction Severity Criticality Documentation Date Start Date Code Code System Note Provider Name and Address Organization Details Recorded Time 60064 lisinopri l medicatio n confusion Not available unabletoasse 01/05/2023 09605 RxNorm Adan Dobbins [facility] 3 14:28:45 5287 prochlorp erazine medicatio n Not available Not available Not available 07/03/2017 8704 RxNorm Elissa Mcnair [facility] 7 14:54:13 Medications Name Sig Start [...] e 50 mcg/actua tion nasal spray,[employer] pension [place] 1 spray twice a day by intranas [...] Updated DateTime 3 170.18 cm 32 kg/m2 30424.8 4 g 74 /min 16 /min 96 [...] Updated DateTime 3 170.18 cm 29.6 kg/m2 48285.9 6 g 91 /min 16 /min 97 % 97 % 124 mm[Hg] 82 mm[Hg] [facility] 3 14:08:15 Date Recorded Body height Body mass index (BMI) Body weight Oxygen saturation Oxygen saturation in Arterial blood by Pulse oximetry Systolic blood pressure Diastolic blood pressure Provider Name and Address Organization Details Last Updated DateTime 2 170.18 cm 34.9 kg/m2 083623. 1 g 99 % 99 % 122 mm[Hg] 78 mm[Hg] [facility] 2 11:02:47 Date Recorded Heart rate Provider Name an d Address Organization Details Last Updated DateTime 02/03/2022 81 /min Adan Dobbins [facility] 02/03/2022 11:45:58 Date Recorded Body height Body mass index (BMI) Body weight Heart rate Oxygen saturation Oxygen saturation in Arterial blood by Pulse oximetry Systolic blood pressure Diastolic blood pressure Provider Name and Address Organization Details Last Updated DateTime 2 170.18 cm 36 kg/m2 056500. 25 g 100 /min 94 % 94 % 122 mm[Hg] 76 mm[Hg] [facility] 2 15:45:20 Date Recorded Body height Body mass index (BMI) Body weight Heart rate Respiratory rate Oxygen saturation Oxygen saturation in Arterial blood by Pulse oximetry Systolic blood pressure Diastolic blood pressure Provider Name and Address Organization Details Last Updated DateTime 2 170.18 cm 36.8 kg/m2 250937. 21 g 89 /min 16 /min 95 % 95 % 120 mm[Hg] 72 mm[Hg] [facility] 2 14:26:37 Social History Question Answer Notes LastModified by Organizat ion Details LastModified Time Tobacco Smoking Status Former Smoker Not Available [facility] 07/22/2020 03:30:40 What Type Of Diet Are You Following? REGULAR [id number] Information not available 07/22/2020 What Was The Date Of Your Most Recent Tobacco Screening? 11/08/2018 [id number] Information not available 07/22/2020 Sex: Unknown Functional Status Question Answer Note LastModified by Organization D etails LastModified Time What is your level of alcohol consumption? None [id number] Information not available 07/22/2020 Mental Status None [...] available 06/16 16:46:07 Mother Myocardial infarction 46 [email or web address] Not available 06/16 17:50:10 Medical History Condition Response Depression Y Diabetes Y Hyperlipidemia Y Hypertension Y Gynecological HistoryNo gynecological history recorded. Obstetrics History GPAL:G 0 P 0 0 0 0 Past Encounters Encounter ID Performer Location Encounter Start Date Encounter Closed Date Diagnosis/Indication Diagnosis SNOMED-CT Code Diagnosis ICD10 Code Diagnosis Note [id number] MD Tara Luciano Office [address] [place] [address] 06/16/2017 16:32:06 06/17/2017 13:04:31 Chest pain 14744380 R07.9 Atypical. Stable. May be related to increased BP. Had echo 06/14/17: normal LV systolic function, mild LVH, EF 57%, mild AI. Had exercise nuclear test 06/14/17: below average exercise capacity, no ischemia, LVEF >70%. Diabetes mellitus 901697 09 E11.59 Discussed importance of tight glycemic control to minimize cardiovasc ular disease progressio n. Essential hypertension 03303459 I10 Newly diagnosed. Patient's blood pressure is [...] Began metoprolol succinate 50 mg qd 06/16/17. [id number] Adan Dobbins MD [place] [address] [place] [address] 07/04/2017 12:07:40 07/05/2017 09:37:07 Essential hypertension 00459907 I10 Newly diagnosed. Patient's blood pressure is [...] control with elevated resting HR. Chest pain 53210665 R07. 9 Atypical. Improved. May be related to increased BP. Had echo 06/14/17: normal LV systolic function, mild LVH, EF 57%, mild AI. Had exercise nuclear test 06/14/17: below average exercise capacity, no ischemia, LVEF >70%. Diabetes mellitus 540838 09 E11.59 Discussed importance of tight glycemic control to minimize cardiovasc ular disease progressio n. Hypercholesterolemia 136 62938 E78.2 Needs to keep LDL less than 70, and HDL more than 40. Began atorvastat in 20 mg qHS 07/04/17. FLP 4 wks. Tachycardia 3638957 R00. 0 Follow on metoprolol . Obtain TSH. D-dimer normal 06/14/17. [id number] Adan Dobbins MD [facility] [address] [place] [address] 08/15/2017 11:58:15 08/16/2017 10:27:57 Essential hypertension 20204759 I10 Newly diagnosed. Pt reports elevated BP [...] amlodipine 5 mg qd 08/15/17. Chest pain 18781659 R07. 9 Atypical. Intermitte nt and nonexertio nal. May be related to increased BP. Had echo 06/14/17: normal LV systolic function, mild LVH, EF 57%, mild AI. Had exercise nuclear test 06/14/17: below average exercise capacity, no ischemia, LVEF >70%. Hypercholesterolemia 136 58577 E78.2 Needs to keep LDL less than 70, and HDL more than 40. Began atorvastat in 20 mg qHS 07/04/17. FLP 4 wks. later with LDL 68. Diabetes mellitus 381158 E11.59 Discussed importance of tight glycemic control to minimize cardiovasc ular disease progressio n. Tachycardia 4581699 R00. 0 Improved on metoprolol . Obtain TSH. D-dimer normal 06/14/17. [id number] Adan Dobbins MD [place] [address] [place] [address] 09/07/2017 14:31:18 09/08/2017 12:52:38 Essential hypertension 85186227 I10 Newly diagnosed. Patient's blood pressure is not well-contr olled at home on present medical therapy. Patient is tolerating [...] amlodipine 10 mg qd 09/07/17. Chest pain 87491325 R07. 9 Atypical. Improved. Intermitte nt and nonexertio nal. May be related to increased BP. Had echo 06/14/17: normal LV systolic function, mild LVH, EF 57%, mild AI. Had exercise nuclear test 06/14/17: below average exercise capacity, no ischemia, LVEF >70%. Hypercholesterolemia 136 35799 E78.2 Needs to keep LDL less than 70, and HDL more than 40. Began atorvastat in 20 mg qHS 07/04/17. FLP 4 wks. later with LDL 68. Diabetes mellitus 833664 E11.59 Discussed importance of tight glycemic control to minimize cardiovasc ular disease progressio n. Follows with endo. Tachycardia 6744217 R00. 0 Improved on metoprolol . Obtained TSH 2.42, normal, 08/19/17. D-dimer normal 06/14/17. [id number] Adan Dobbins MD [facility] Office [address] [place] [address] 10/18/2017 12:51:02 10/18/2017 14:59:51 Essential hypertension 28773077 I10 Newly diagnosed. Patient's blood pressure is not well-contr olled at home on present medical therapy. Patient is tolerating [...] qd 10/18/17. BMP/Mg in 3wks. Chest pain 54191127 R07. 9 Atypical. Improved. Intermitte nt and nonexertio nal. May be related to increased BP. Had echo 06/14/17: normal LV systolic function, mild LVH, EF 57%, mild AI. Had exercise nuclear test 06/14/17: below average exercise capacity, no ischemia, LVEF >70%. Hypercholesterolemia 136 74855 E78.2 Needs to keep LDL less than 70, and HDL more than 40. Began atorvastat in 20 mg qHS 07/04/17. FLP 4 wks. later with LDL 68. Diabetes mellitus 909476 09 E11.59 Discussed importance of tight glycemic control to minimize cardiovasc ular disease progressio n. Follows with endo. Tachycardia 5659386 R00. 0 Improved on metoprolol . Obtained TSH 2.42, normal, 08/19/17. D-dimer normal 06/14/17. Pain in bi lateral legs 2679607123 2562738 M79.604 Obtain ABIs. [id number] Adan Dobbins MD [facility] [address] [place] [address] 12/05/2017 12:29:25 12/13/2017 09:36:55 Essential hypertension 99650737 I10 Newly diagnosed. Patient's blood pressure is [...] at 1.4. Began MgOxide daily. Chest pain 28579506 R07. 9 Atypical. Improved. Intermitte nt and non-exerti onal. May be related to increased BP. Had echo 06/14/17: normal LV systolic function, mild LVH, EF 57%, mild AI. Had exercise nuclear test 06/14/17: below average exercise capacity, no ischemia, LVEF >70%. Hypercholesterolemia 136 26667 E78.2 Needs to keep LDL less than 70, and HDL more than 40. Began Atorvastat in 20 mg qHS 07/04/17. LDL 68 08/08/17. Diabetes mellitus 777219 09 E11.59 Discussed importance of tight glycemic control to minimize cardiovasc ular disease progressio n. Follows with endo. Tachycardia 1018719 R00. 0 Improved but intermitte nt palpitatio ns on Metoprolol . Obtained TSH 2.42, normal, 08/19/17. D-dimer normal 06/14/17. Pain in bi lateral legs 8040510593 2957779 M79.604 Had Normal ankle-brac hial index done in 10/26/17. Palpitations 42700714 R0 0.2 Obtain 24 hr Holter monitor to rule out arrhythmia . Had low Mg 1.4 11/18/17.Beg an Mg Oxide 400mg qd 12/05/17. Had 08/19/17 TSH 2.420. [id number] Adan Dobbins MD [place] [facility] [place] [address] 01/16/2018 16:11:38 01/17/2018 13:04:24 Essential hypertension 37927649 I10 Newly diagnosed. Patient's blood pressure is [...] at 1.4. Began MgOxide daily 11/2017. Palpitations 49175723 R0 0.2 Less frequent but still symptomati c since began Mg Oxide. Obtain Cardea Monitor for 7 days to rule out arrhythmia . Had low Mg 1.4 11/18/17. Began Mg Oxide 400 mg qd 12/05/17. Had 08/19/17 TSH 2.420. Chest pain 82653437 R07. 9 Atypical. Improved. Intermitte nt and non-exerti onal. May be related to increased BP. Had echo 06/14/17: normal LV systolic function, mild LVH, EF 57%, mild AI. Had exercise nuclear test 06/14/17: below average exercise capacity, no ischemia, LVEF >70%. Hypercholesterolemia 136 11108 E78.2 Needs to keep LDL less than 70, and HDL more than 40. Began Atorvastat in 20 mg qHS 07/04/17. LDL 68 08/08/17. Diabetes mellitus 959565 09 E11.59 Discussed importance of tight glycemic control to minimize cardiovasc ular disease progressio n. Follows with endo. Tachycardia 3793994 R00. 0 Improved but intermitte nt palpitatio ns on Metoprolol . Obtained TSH 2.42, normal, 08/19/17. D-dimer normal 06/14/17. Pain in bi lateral legs 3005061034 2712816 M79.604 Had Normal ankle-brac hial index done in 10/26/17. [id number] Adan Dobbins MD [place] [facility] [address] [place] [address] 01/23/2018 16:55:19 01/24/2018 13:43:48 Essential hypertension 88113445 I10 Newly diagnosed. Patient's blood pressure is [...] reflux study if LE edema recurs. Palpitations 10401699 R0 0.2 Less frequent but still symptomati c since began Mg Oxide. Obtain Cardea Monitor for 7 days to rule out arrhythmia . Had low Mg 1.4 on 11/18/17. Began Mg Oxide 400 mg qd 12/05/17. Had 08/19/17 TSH 2.420. Chest pain 38931952 R07. 9 Atypical. Improved. Intermitte nt and non-exerti onal. May be related to increased BP. Had echo 06/14/17: normal LV systolic function, mild LVH, EF 57%, mild AI. Had exercise nuclear test 06/14/17: below average exercise capacity, no ischemia, LVEF >70%. Hypercholesterolemia 136 99061 E78.2 Needs to keep LDL less than 70, and HDL more than 40. Began Atorvastat in 20 mg qHS 07/04/17. LDL 68 on 08/08/17. Diabetes mellitus 407713 09 E11.59 Discussed importance of tight glycemic control to minimize cardiovasc ular disease progressio n. Follows with endo. Tachycardia 8089007 R00. 0 Improved but intermitte nt palpitatio ns on Metoprolol . Obtained TSH 2.42, normal, 08/19/17. D-dimer normal 06/14/17. Pain in bi lateral legs 2883237362 9942076 M79.604 Had Normal ankle-brac hial index done in 10/26/17. Edema of l ower extremity 643464794 R60.0 Improved. Started on HCTZ 12.5 mg 01/20/18. Had negative Venous Doppler for DVT on 01/20/18. [id number] Adan Dobbins MD [facility] [address] [place] [address] 02/15/2018 16:48:28 02/15/2018 19:04:08 Essential hypertension 13123488 I10 Patient's blood pressure is well-contr olled [...] reflux study if LE edema recurs. Palpitations 55089332 R0 0.2 Less frequent but still symptomati [...] 1.5. Had 08/19/17 TSH 2.420. Chest pain 08606454 R07. 9 Atypical. Improved. Intermitte nt and non-exerti onal. Had echo 06/14/17: normal LV systolic function, mild LVH, EF 57%, mild AI. Had exercise nuclear test 06/14/17: below average exercise capacity, no ischemia, LVEF >70%. Hypercholesterolemia 136 43407 E78.2 Needs to keep LDL less than 70, and HDL more than 40. Began Atorvastat in 20 mg qHS 07/04/17. LDL 68 on 08/08/17. Diabetes mellitus 580154 09 E11.59 Discussed importance of tight glycemic control to minimize cardiovasc ular disease progressio n. Follows with endo. Tachycardia 5687306 R00. 0 Improved but intermitte nt palpitatio ns on Metoprolol . Obtained TSH 2.42, normal, 08/19/17. D-dimer normal 06/14/17. Pain in bi lateral legs 8805270141 0337179 M79.604 Had Normal ankle-brac hial index done in 10/26/17. Edema of l ower extremity 183961029 R60.0 Improved. Started on HCTZ 12.5 mg 01/20/18 with resolution of edema but with increased Cr, prompting cessation of hydrochlor othiazide Feb 15 2018. Had negative Venous Doppler for DVT on 01/20/18. Dizziness 152498039 R42 Obtain carotid U/S. Stopped HCTZ given increased BUN and Cr. [id number] David Hancock MD [place] [address] [place] [address] 03/15/2018 16:30:20 03/23/2018 18:34:33 Essential hypertension 70046019 I10 Patient's blood pressure is well-contr olled [...] reflux study if LE edema recurs. Palpitations 65949488 R0 0.2 Less frequent but still symptomati [...] 1.5. Had 08/19/17 TSH 2.420. Chest pain 61745010 R07. 9 Atypical. Improved. Intermitte nt and non-exerti onal. Had echo 06/14/17: normal LV systolic function, mild LVH, EF 57%, mild AI. Had exercise nuclear test 06/14/17: below average exercise capacity, no ischemia, LVEF >70%. Hypercholesterolemia 136 74594 E78.2 Needs to keep LDL less than 70, and HDL more than 40. Began Atorvastat in 20 mg qHS 07/04/17. LDL 68 on 08/08/17. Diabetes mellitus 041791 09 E11.59 Discussed importance of tight glycemic control to minimize cardiovasc ular disease progressio n. Follows with endo. Tachycardia 1316456 R00. 0 Improved but intermitte nt palpitatio ns on Metoprolol . Obtained TSH 2.42, normal, 08/19/17. D-dimer normal 06/14/17. Pain in bi lateral legs 5803911590 0818401 M79.604 Had Normal ankle-brac hial index done in 10/26/17. Edema of l ower extremity 339217816 R60.0 Improved. Started on HCTZ 12.5 mg 01/20/18 with resolution of edema but with increased Cr, prompting cessation of hydrochlor othiazide Feb 15 2018. Had negative Venous Doppler for DVT on 01/20/18. Dizziness 275690139 R42 Obtain carotid U/S. Stopped HCTZ given increased BUN and Cr. [id number] David Hancock MD [facility] [address] [place] [address] 05/29/2018 10:46:20 06/13/2018 02:43:29 Essential hypertension 14740328 I10 Patient's blood pressure is well-contr olled [...] reflux study if LE edema recurs. Palpitations 31459871 R0 0.2 More frequent the last 1 [...] 1.5. Had 05/25/18 TSH 2.330 Chest pain 69451665 R07. 9 Atypical. Improved. Intermitte nt and non-exerti onal. Had echo 06/14/17: normal LV systolic function, mild LVH, EF 57%, mild AI. Had exercise nuclear test 06/14/17: below average exercise capacity, no ischemia, LVEF >70%. Hypercholesterolemia 136 88497 E78.2 Needs to keep LDL less than 70, and HDL more than 40. Began Atorvastat in 20 mg qHS 07/04/17. Increased Atorvastat in to 40 mg once daily 05/29/18. LDL was 131 on 05/25/18 Will start Fish Oil 1000 mg twice daily for TG 258. Diabetes mellitus 487155 09 E11.59 Discussed importance of tight glycemic control to minimize cardiovasc ular disease progressio n. Follows with endo. Tachycardia 2277648 R00. 0 Improved but intermitte nt palpitatio ns on Metoprolol 200 mg qd. Had 05/25/18 TSH 2.330. Pain in bi lateral legs 1874757133 0840300 M79.604 Had Normal ankle-brac hial index done in 10/26/17. Edema of l ower extremity 452470813 R60.0 Improved. Started on HCTZ 12.5 mg 01/20/18 with resolution of edema but with increased Cr, prompting cessation of hydrochlor othiazide Feb 15 2018. Had negative Venous Doppler for DVT on 01/20/18. Dizziness [id number] R42 Intermitte nt. Had Carotid US on 02/22/18 showing mild bilateral internal carotid artery stenosis with less than 60% diameter stenosis. Stopped HCTZ given increased BUN and Cr. Anxiety 22980690 F41.9 History of anxiety and currently going [...] agrees with the plan. All questions answered. [id number] David Hancock MD [facility] [address] [place] [address] 07/04/2018 15:00:24 07/04/2018 15:33:37 Essential hypertension 08098634 I10 Well controlled today. Is not taking her medication s as prescribed . She stopped taking her medication s 1 week ago, Amlodipine 5 mg, Lisinopril 10 mg, Metoprolol 200 mg qd and Magnesium Oxide. Palpitations 19352675 R0 0.2 less frequent. Had tritrue 7 day monitor 01/23/2018 which demonstrat ed [...] TSH 2.330 07/06 stopped MagOxide Chest pain 26926625 R07. 9 Atypical. Improved. Intermitte nt and non-exerti onal. Had echo 06/14/17: normal LV systolic function, mild LVH, EF 57%, mild AI. Had exercise nuclear test 06/14/17: below average exercise capacity, no ischemia, LVEF >70%. Tachycardia 8222025 R00. 0 Improved but intermitte nt palpitatio ns on Metoprolol 200 mg qd. Had 05/25/18 TSH 2.330. Hypercholesterolemia 136 40016 E78.2 Needs to keep LDL less than 70, and HDL more than 40. Began Atorvastat in 20 mg qHS 07/04/17. Increased Atorvastat in to 40 mg once daily 05/29/18. LDL was 131 on 05/25/18 Will start Fish Oil 1000 mg twice daily for TG 258. Will repeat FLP before next visit. Diabetes mellitus 252084 09 E11.59 Discussed importance of tight glycemic control to minimize cardiovasc ular disease progressio n. Follows with endo. Pain in bi lateral legs [id number] 2157241 M79.604 Had Normal ankle-brac hial index done in 10/26/17. Edema of l ower extremity 106196366 R60.0 Improved. Started on HCTZ 12.5 mg 01/20/18 with resolution of edema but with increased Cr, prompting cessation of hydrochlor othiazide Feb 15 2018. Had negative Venous Doppler for DVT on 01/20/18. Dizziness 684508790 R42 Intermitte nt. Had Carotid US on 02/22/18 showing mild bilateral internal carotid artery stenosis with less than 60% diameter stenosis. Stopped HCTZ given increased BUN and Cr. Anxiety 90421142 F41.9 History of anxiety and currently going [...] agrees with the plan. All questions answered. [id number] Adan Dobbins MD [facility] [address] [place] [address] 11/08/2018 15:21:24 11/08/2018 17:38:34 Essential hypertension 34062878 I10 Well-contr olled today despite stopping all of her anti-hyper tensives on her own since 06/2018. She lost 23 lbs. since January 2018 and is more active. Is not taking her medication s as prescribed . She stopped taking her medication s 11/08/18: Amlodipine 5 mg, Lisinopril 10 mg, Metoprolol 200 mg qd and Magnesium Oxide. BP diary. Palpitations 60181137 R0 0.2 Less frequent. Had Cardea 7 [...] 1.5. Had 05/25/18 TSH 2.330 Chest pain 58834416 R07. 9 Atypical. Improved. Intermitte nt and non-exerti onal. Had echo 06/14/17: normal LV systolic function, mild LVH, EF 57%, mild AI. Had exercise nuclear test 06/14/17: below average exercise capacity, no ischemia, LVEF >70%. Tachycardia 8171403 R00. 0 Improved but intermitte nt palpitatio ns on Metoprolol 200 mg qd, which she self-disco ntinued. Had 05/25/18 TSH 2.330. Hypercholesterolemia 136 56785 E78.2 Needs to keep LDL less than 70, and HDL more than 40. Began Atorvastat in 20 mg qHS 07/04/17. Increased Atorvastat in to 40 mg once daily 05/29/18. LDL was 131 on 05/25/18 She stopped atorvastat in on her own 06/2018. Obtain FLP. Diabetes mellitus 270468 09 E11.59 Discussed importance of tight glycemic control to minimize cardiovasc ular disease progressio n. Follows with endo. Pain in bi lateral legs 1334950139 5191690 M79.604 Had Normal ankle-brac hial index done in 10/26/17. Edema of l ower extremity 178656460 R60.0 Improved. Started on HCTZ 12.5 mg 01/20/18 with resolution of edema but with increased Cr, prompting cessation of hydrochlor othiazide Feb 15 2018. Had poor liquid intake at that time. Had negative Venous Doppler for DVT on 01/20/18. Dizziness 994498851 R42 Intermitte nt. Improved. Had Carotid US on 02/22/18 showing mild bilateral internal carotid artery stenosis with less than 60% diameter stenosis. Needs repeat carotid U/S 02/2019. Stopped HCTZ given increased BUN and Cr. Anxiety 91719499 F41.9 Improved. History of anxiety and currently going through major life changes. [id number] Adan Dobbins MD [facility] [address] [place] [address] 01/13/2022 14:02:40 01/13/2022 16:32:52 Essential hypertension 01453577 I10 Well-contr olled today despite stopping all of her anti-hyper tensives on her own since 06/2018. She lost 23 lbs. since January 2018 and is more active. Is not taking her medication s as prescribed . She stopped taking her medication s 11/08/18: Amlodipine 5 mg, Lisinopril 10 mg, Metoprolol 200 mg qd and Magnesium Oxide. BP diary. Palpitations 10277377 R0 0.2 Less frequent. Had Cardea 7 [...] 1.5. Had 05/25/18 TSH 2.330 Chest pain 88719907 R07. 9 Patient presents with chest pain [...] stress test normal, consider stopping ASA. Tachycardia 9004239 R00. 0 Improved but intermitte nt palpitatio ns on Metoprolol 200 mg qd, which she self-disco ntinued. Had 05/25/18 TSH 2.330. Hypercholesterolemia 136 25155 E78.2 Needs to keep LDL less than 70, and HDL more than 40. Began Atorvastat in 20 mg qHS 07/04/17. Increased Atorvastat in to 40 mg once daily 05/29/18. LDL was 131 on 05/25/18 She stopped atorvastat in on her own 06/2018. Obtain FLP. Diabetes mellitus 926386 09 E11.59 Discussed importance of tight glycemic control to minimize cardiovasc ular disease progressio n. Follows with endo. Pain in bi lateral legs 1517107641 9098080 M79.604 Had Normal ankle-brac hial index done in 10/26/17. Edema of l ower extremity 203400170 R60.0 Intermitte nt. Started on HCTZ 12.5 mg 01/20/18 with resolution of edema but with increased Cr, prompting cessation of hydrochlor othiazide Feb 15 2018. Had poor liquid intake at that time. Had negative Venous Doppler for DVT on 01/20/18. Elevate legs.Compr ession stockings. Low Na diet. Consider HCTZ pending labs. Dizziness 876790822 R42 Intermitte nt. Improved. Had Carotid US on 02/22/18 showing mild bilateral internal carotid artery stenosis with less than 60% diameter stenosis. Needs repeat carotid U/S. Anxiety 66241102 F41.9 Improved. History of anxiety and currently going through major life changes. Aortic edita ve regurgitation 34443657 I35.1 Mild. Had 06/14/17 ECHO: Normal left ventricula r systolic function , no local well motion abnormalit ies, normal left ventricula r size , mild concentric left ventricula r hypertroph y, normal left ventricula r diastolic function, EF 57%, Mild aortic valve regurgitat ion. Obtain echo to evaluate for structural /functiona l disease. [id number] Adan Dobbins MD [facility] [address] [place] [address] 02/03/2022 10:46:00 02/03/2022 11:59:11 Aortic valve regurgitation 63421152 I35.1 Mild. Had 06/14/17 ECHO: Normal left ventricula r systolic function , no local well motion abnormalit ies, normal left ventricula r size , mild concentric left ventricula r hypertroph y, normal left ventricula r diastolic function, EF 57%, Mild aortic valve regurgitat ion. Obtain echo to evaluate for structural /functiona l disease. Essential hypertension 05270838 I10 Well-contr olled today despite stopping all of her anti-hyper tensives on her own since 06/2018. She lost 23 lbs. since January 2018 and is more active. Is not taking her medication s as prescribed . She stopped taking her medication s 11/08/18: Amlodipine 5 mg, Lisinopril 10 mg, Metoprolol 200 mg qd and Magnesium Oxide. BP diary. Dizziness 896513718 R42 Intermitte nt. Improved. Had Carotid US on 02/22/18 showing mild bilateral internal carotid artery stenosis with less than 60% diameter stenosis. Needs repeat carotid U/S. Pain in bi lateral legs [id number] 8387372 M79.604 Had Normal ankle-brac hial index done in 10/26/17. Tachycardia 2052766 R00. 0 Improved but intermitte nt palpitatio ns on Metoprolol 200 mg qd, which she self-disco ntinued. Had 05/25/18 TSH 2.330. Anxiety 14302673 F41.9 Improved. History of anxiety and currently going through major life changes. Diabetes mellitus 013247 09 E11.59 Discussed importance of tight glycemic control to minimize cardiovasc ular disease progressio n. Follows with endo. Edema of l ower extremity 964593068 R60.0 Intermitte nt. Minimal. Started on HCTZ 12.5 mg 01/20/18 with resolution of edema but with increased Cr, prompting cessation of hydrochlor othiazide Feb 15 2018. Had poor liquid intake at that time. Had negative Venous Doppler for DVT on 01/20/18. Elevate legs.Compr ession stockings. Low Na diet. Consider HCTZ if edema increases. History of obesity 16106 3001 Z91.89 20 lb. weight loss recommende d over the next 2 months. Hypercholesterolemia 136 65120 E78.2 Needs to keep LDL less than [...] gm bid 02/03/22. Atypical chest pain 1025 16321 R07.89 Patient presents with chest pain with [...] . The patient agrees to proceed at [facility]. Had echo 06/14/17: normal LV systolic function, mild LVH, EF 57%, mild AI. Had exercise nuclear test 06/14/17: below average exercise capacity, no ischemia, LVEF >70%. Had 01/20/22 CMP-NA 138 K 4.0 CR 1.08 GL 106 CA 8.7 MAG 1.7 LIPID-TRIG 438 CHOL 265 LDL 137 HDL 39 CBC-WBC 8.9 RBC 4.32 HGB 13.8 HCT 39.3 PLT 234 Palpitations 87391315 R0 0.2 Less frequent. Had Cardea 7 [...] mg qd 12/05/17. Had 05/25/18 TSH 2.330 [id number] Adan Dobbins MD [facility] [address] [place] [address] 03/03/2022 15:38:56 03/03/2022 18:05:44 Aortic valve regurgitation 20042168 I35.1 Mild previously . Had US, echocardio [...] Mild aortic valve regurgitat ion. Essential hypertension 91124308 I10 Well-contr olled today despite stopping all of her anti-hyper tensives on her own since 06/2018. She lost 23 lbs. since January 2018 and is more active. Is not taking her medication s as prescribed . She stopped taking her medication s 11/08/18: Amlodipine 5 mg, Lisinopril 10 mg, Metoprolol 200 mg qd and Magnesium Oxide. BP diary. Dizziness 716362399 R42 Intermitte nt. Improved. Had US, carotid artery ( 2) Antegrade flow noted in both vertebral arteries. Mild bilateral internal carotid artery stenosis with less than 50% diameter stenosis. Had Carotid US on 02/22/18 showing mild bilateral internal carotid artery stenosis with less than 60% diameter stenosis. Needs repeat carotid U/S 02/2023. Pain in bi lateral legs 2387980110 0988047 M79.604 Had Normal ankle-brac hial index done in 10/26/17. Tachycardia 4339846 R00. 0 Improved but intermitte nt palpitatio ns on Metoprolol 200 mg qd, which she self-disco ntinued. Had 05/25/18 TSH 2.330. Anxiety 46952908 F41.9 Improved. History of anxiety and currently going through major life changes. Diabetes mellitus 895270 09 E11.59 Discussed importance of tight glycemic control to minimize cardiovasc ular disease progressio n. Follows with endo. Edema of l ower extremity 571575649 R60.0 Intermitte nt. Minimal. Started on HCTZ 12.5 mg 01/20/18 with resolution of edema but with increased Cr, prompting cessation of hydrochlor othiazide Feb 15 2018. Had poor liquid intake at that time. Had negative Venous Doppler for DVT on 01/20/18. Elevate legs.Compr ession stockings. Low Na diet. Consider HCTZ if edema increases. History of obesity 79772 3001 Z91.89 20 lb. weight loss recommende d over the next 2 months. Hypercholesterolemia 136 25734 E78.2 Needs to keep LDL less than [...] FLP 1 mo. Atypical chest pain 1025 96336 R07.89 Patient presents with chest pain with [...] HGB 13.8 HCT 39.3 PLT 234 Palpitations 40240404 R0 0.2 Less frequent. Had tritrue 7 day monitor 01/23/2018 which demonstrat ed [...] 12/05/17. Had 05/25/18 TSH 2.330 Coronary arteriosclerosis 24152218 I25.10 Mild-moder ate CAD. Had [facility] 02/18/22: mild to moderate CAD (40% stenosis mid LCx, LAD and RCA no significan t disease, RCA non-domina nt), normal LV systolic function, normal LVEDP. Continue ASA. Needs to keep LDL less than 70, and HDL more than 40. Pre-surger y evaluation 896952165 Z01.818 There is no cardiac contraindi cation for the procedure. The planned procedure would be within acceptable risk. Patient may stop taking aspirin five (5) days prior to the procedure. [id number] Adan Dobbins MD [facility] [address] [place] [address] 05/05/2022 14:17:27 05/05/2022 15:27:04 Aortic valve regurgitation 89819875 I35.1 Mild previously . Had US, echocardio [...] Mild aortic valve regurgitat ion. Essential hypertension 71613219 I10 Well-contr olled with diet today despite [...] Oxide. BP diary. Obtain BMP, Mg. Dizziness 485307766 R42 Intermitte nt. Postural. Had US, carotid artery ( 2) Antegrade flow noted in both vertebral arteries. Mild bilateral internal carotid artery stenosis with less than 50% diameter stenosis. Had Carotid US on 02/22/18 showing mild bilateral internal carotid artery stenosis with less than 60% diameter stenosis. Needs repeat carotid U/S 02/2023. Pain in bi lateral legs 6528926036 1334827 M79.604 Had Normal ankle-brac hial index done in 10/26/17. Tachycardia 8342769 R00. 0 Improved but intermitte nt palpitatio ns on Metoprolol 200 mg qd, which she self-disco ntinued. Had 05/25/18 TSH 2.330. Anxiety 20340251 F41.9 Improved. History of anxiety and currently going through major life changes. Diabetes mellitus 591164 09 E11.59 Discussed importance of tight glycemic control to minimize cardiovasc ular disease progressio n. Follows with endo. Edema of l ower extremity 123457634 R60.0 Intermitte nt. Minimal. Started on HCTZ 12.5 mg 01/20/18 with resolution of edema but with increased Cr, prompting cessation of hydrochlor othiazide Feb 15 2018. Had poor liquid intake at that time. Had negative Venous Doppler for DVT on 01/20/18. Elevate legs.Compr ession stockings. Low Na diet. Consider HCTZ if edema increases. History of obesity 96436 3001 Z91.89 20 lb. weight loss recommende d over the next 2 months. Hypercholesterolemia 136 72840 E78.2 Needs to keep LDL less than [...] CPK 72 normal. Atypical chest pain 1025 31857 R07.89 Patient presents with chest pain with [...] 13.8 HCT 39.3 PLT 234 Coronary arteriosclerosis 77151208 I25.10 Mild-moder ate CAD. Had [facility] 02/18/22: mild to moderate CAD (40% stenosis mid LCx, LAD and RCA no significan t disease, RCA non-domina nt), normal LV systolic function, normal LVEDP. Continue ASA. Needs to keep LDL less than 70, and HDL more than 40. Palpitations 03860232 R0 0.2 Resolved. Had Cardea 7 day [...] 152 CA 9.0 MAG 1.6 CK 72 [id number] Adan Dobbins MD [facility] [address] [place] [address] 10/27/2022 11:20:27 10/27/2022 12:56:22 Aortic valve regurgitation 21046786 I35.1 Mild previously . Had US, echocardio [...] Mild aortic valve regurgitat ion. Essential hypertension 41461841 I10 Well-contr olled with diet today despite [...] BP diary. Obtain BMP, Mg, drawn at [facility]. 10/25/22. Dizziness 601840727 R42 Intermitte nt. Postural. Had US, carotid artery ( 2) Antegrade flow noted in both vertebral arteries. Mild bilateral internal carotid artery stenosis with less than 50% diameter stenosis. Had Carotid US on 02/22/18 showing mild bilateral internal carotid artery stenosis with less than 60% diameter stenosis. Needs repeat carotid U/S 01/2023. Pain in bi lateral legs 4609337753 5322079 M79.604 Had Normal ankle-brac hial index done in 10/26/17. Tachycardia 7518476 R00. 0 Improved but intermitte nt palpitatio ns on Metoprolol 200 mg qd, which she self-disco ntinued. Had 05/25/18 TSH 2.330. Anxiety 21496876 F41.9 Improved. History of anxiety and currently going through major life changes. Diabetes mellitus 972206 09 E11.59 Discussed importance of tight glycemic control to minimize cardiovasc ular disease progressio n. Follows with endo. Edema of l ower extremity 778274197 R60.0 Intermitte nt. Minimal. Started on HCTZ 12.5 mg 01/20/18 with resolution of edema but with increased Cr, prompting cessation of hydrochlor othiazide Feb 15 2018. Had poor liquid intake at that time. Had negative Venous Doppler for DVT on 01/20/18. Elevate legs.Compr ession stockings. Low Na diet. Consider HCTZ if edema increases. Obtain labs 10/25/21 [facility]. History of obesity 11448 3001 Z91.89 20 lb. weight loss recommende d over the next 2 months. Hypercholesterolemia 136 94264 E78.2 Needs to keep LDL less than [...] CPK 72 normal. Atypical chest pain 1025 21398 R07.89 Patient presents with chest pain with atypical features and exertional dyspnea which can be an anginal equivalent , improved. Had exercise nuclear stress test 01/26/22: positive for ischemia, with reversible defect consistent with ischemia in laura-api daina area (new compared with 06/14/17).H ad [facility] 02/18/22: mild to moderate CAD (40% stenosis [...] 13.8 HCT 39.3 PLT 234 Coronary arteriosclerosis 81997784 I25.10 Mild-moder ate CAD. Had [facility] 02/18/22: mild to moderate CAD (40% stenosis mid LCx, LAD and RCA no significan t disease, RCA non-domina nt), normal LV systolic function, normal LVEDP. Continue ASA. Needs to keep LDL less than 70, and HDL more than 40. Palpitations 17153050 R0 0.2 Resolved. Had Cardea 7 day [...] MAG 1.6 CK 72 Pre-surger y evaluation 167940026 Z01.818 There is no cardiac contraindi cation for the procedure. The planned procedure would be within acceptable risk. Patient may stop taking aspirin five (5) days prior to the procedure. [id number] Adan Dobbins MD [facility] [address] [place] [address] 01/05/2023 14:00:47 01/05/2023 14:46:55 Aortic valve regurgitation 53672561 I35.1 Mild previously . Had US, echocardio [...] regurgitat ion. Obtain echo 03/2023. Essential hypertension 89948025 I10 Well-contr olled with diet today despite [...] CR 1.12 GL 177 CA 9.0 Dizziness 256672371 R42 Intermitte nt. Postural. Had US, carotid artery ( 2) Antegrade flow noted in both vertebral arteries. Mild bilateral internal carotid artery stenosis with less than 50% diameter stenosis. Had Carotid US on 02/22/18 showing mild bilateral internal carotid artery stenosis with less than 60% diameter stenosis. Needs repeat carotid U/S 02/2023. Pain in bi lateral legs 8663179319 9925870 M79.604 Had Normal ankle-brac hial index done in 10/26/17. Tachycardia 5521398 R00. 0 Improved but intermitte nt palpitatio ns on Metoprolol 200 mg qd, which she self-disco ntinued. Had 05/25/18 TSH 2.330. Anxiety 81558472 F41.9 Improved. History of anxiety and currently going through major life changes. Diabetes mellitus 189889 09 E11.59 Discussed importance of tight glycemic control to minimize cardiovasc ular disease progressio n. Follows with endo. Edema of l ower extremity 396805261 R60.0 Intermitte nt. Minimal. Started on HCTZ 12.5 mg 01/20/18 with resolution of edema but with increased Cr, prompting cessation of hydrochlor othiazide Feb 15 2018. Had poor liquid intake at that time. Had negative Venous Doppler for DVT on 01/20/18. Elevate legs.Compr ession stockings. Low Na diet. Consider HCTZ if edema increases. History of obesity 48844 3001 Z91.89 20 lb. weight loss recommende d over the next 2 months. Hypercholesterolemia 136 43600 E78.2 Needs to keep LDL less than [...] Mg, TSH, CBC. Atypical chest pain 1025 84075 R07.89 Resolved. Had exercise nuclear stress test [...] 13.8 HCT 39.3 PLT 234 Coronary arteriosclerosis 22199300 I25.10 Mild-moder ate CAD. Had [facility] 02/18/22: mild to moderate CAD (40% stenosis mid LCx, LAD and RCA no significan t disease, RCA non-domina nt), normal LV systolic function, normal LVEDP. Continue ASA. Intolerant of lisinopril with altered mental status. Needs to keep LDL less than 70, and HDL more than 40. Palpitations 24884587 R0 0.2 Resolved. Had Cardea 7 day [...] Guo Member ID Guarantor Name 01/02/2023 1 [facility] [id number] Niles Croft [id number] Niles Croft Notes Date Note Type [...] She is having R ankle surgery at [place] in [facility] with Dr. Phillips, date pending. Reports home [...] related. She had fasting blood work at [facility] on 05/25/18 which was all WNL except [...] She is having R ankle surgery at [place] [facility] in [facility] with Dr. Phillips, date pending. Reports home [...] related. She had fasting blood work at [facility] on 05/25/18 which was all WNL except [...] events correlated with normal sinus rhythm. Adan kolb [place] - [facility] 02/03/2022 11:48:28 03/03/2022 text/html 03/03/22 CC: Chest pain 51 year-old woman with history of HTN, aortic valve regurgitation, obesity, diabetes mellitus, CKD, family history of CAD, former tobacco use (quit 05/2016), anxiety, depression, is seen in cardiac consultation for chest pain. She was last in the office 4 weeks ago. Had [facility] 02/18/22: mild to moderate CAD (40% stenosis mid LCx, LAD and RCA no significant disease, RCA non-dominant), normal LV systolic function, normal LVEDP. She is having R ankle surgery at [place] in [facility] with Dr. Phillips, date pending. Reports home [...] related. She had fasting blood work at [facility] on 05/25/18 which was all WNL except [...] events correlated with normal sinus rhythm. Had [facility] 02/18/22: mild to moderate CAD (40% stenosis mid LCx, LAD and RCA no significant disease, RCA non-dominant), normal LV systolic function, normal LVEDP. Adan kolb [place] - [facility] 03/03/2022 17:58:07 05/05/2022 text/html 05/05/22 CC: Chest pain 51 year-old woman with history of CAD, carotid artery stenosis, HTN, aortic valve regurgitation, obesity, diabetes mellitus, CKD, family history of CAD, former tobacco use (quit 05/2016), anxiety, depression, is seen in cardiac consultation for chest pain. She was last in the office 8 weeks ago. Had [facility] 02/18/22: mild to moderate CAD (40% stenosis mid LCx, LAD and RCA no significant disease, RCA non-dominant), normal LV systolic function, normal LVEDP. She had R ankle surgery at [place] in [facility] with Dr. Phillips 03/2022. Reports home BP [...] related. She had fasting blood work at [facility] on 05/25/18 which was all WNL except [...] with reversible defect consistent with ischemia in lauar-apical area (new compared with 06/14/17). Had 06/14/17: [...] normal LV systolic function, normal LVEDP. Adan kolb, ALAN [facility]o [facility] 05/05/2022 15:19:25 10/27/2022 text/html [...] R foot tendon repair, date pending. Had [facility] 02/18/22: mild to moderate CAD (40% stenosis mid LCx, LAD and RCA no significant disease, RCA non-dominant), normal LV systolic function, normal LVEDP. She had R ankle surgery at [place] in [facility] with Dr. Phillips 03/2022. Reports home BP [...] related. She had fasting blood work at [facility] on 05/25/18 which was all WNL except [...] events correlated with normal sinus rhythm. Had [facility] 02/18/22: mild to moderate CAD (40% stenosis mid LCx, LAD and RCA no significant disease, RCA non-dominant), normal LV systolic function, normal LVEDP. Adan Dobbins [place], [place] - [facility] 10/27/2022 12:49:30 01/05/2023 [...] had R foot tendon repair 10/28/22. Had [facility] 02/18/22: mild to moderate CAD (40% stenosis mid LCx, LAD and RCA no significant disease, RCA non-dominant), normal LV systolic function, normal LVEDP. She had R ankle surgery at [place] [facility] in [facility] with Dr. Phillips 03/2022. Reports home BP [...] related. She had fasting blood work at [facility] on 05/25/18 which was all WNL except [...] fraction is 55-60% (normal). No AI. Had 9/26/17 ECHO: Normal left ventricular systolic function , [...] >70%. Had normal [facility] on 10/21/17. Had tritrue 7 day monitor 01/23/2018 which demonstrated normal [...] events correlated with normal sinus rhythm. Had [facility] 02/18/22: mild to moderate CAD (40% stenosis mid LCx, LAD and RCA no significant disease, RCA non-dominant), normal LV systolic function, normal LVEDP. Adan kolb [place] - [facility] 01/05/2023 14:34:41 OBGyn Episode No OBEpisode recorded.
--- OUTSIDE RECORDS SUMMARY | 2025-03-02 22:40 | XMS_ITS | Clinical Summary ---
Author Organization [facility] Address [address] [place] [address] Phone Care Team Providers Care Auto Claim Representative Name Role Phone Radha Kaminski Primary Care Provider [phone] Allergies Active Allergy Reactions Criticality Noted Date Comments Prochlorperazine Other (see comments),Shortness of breath High 11/26/2016 Lockjaw Lockjaw Medications aspirin (ST DUDLEY) 81 MG EC tablet Take 81 mg by mouth daily Active buPROPion XL (WELLBUTRIN XL) 150 MG 24 hr tablet 2 Active Cholecalciferol (Vitamin D3) 1.25 MG (58384 UT) capsule Twice a week 2 Active [...] Comments Influenza Vaccine (Season Ended) [address] [place] [address] Care Teams Auto Claim Representative Relationship Specialty Start Date End Date Radha Kaminski [facility] [place] [id number] PCP - General Family Medicine 06/21/22
--- OUTSIDE RECORDS SUMMARY | 2025-03-02 22:40 | XMS_ITS | Patient Health Record ---
Author Organization [facility] [employer] Address [address] [facility] [address] [place] [address] Care Team Providers Care Kennel Helper Name Role Phone Roland Rojas DO Primary Care Provider Unavail able Julian Cummings Unavailable [phone] Allergies Allergen (clinical drug ingredient) Drug/Non Drug Allergy documented on EMR Reaction Allergy Type Onset Date Status Compazine Unknown Drug Allergy 12/21/2023 Active Reason For Referral No Information Medications Medication SIG (Take, Route, Frequency, Duration) Notes Start Date End Date Status ICOSAPENT ETHYL 1 GRAM CAPSULE *Reorder from [employer] for eRx and Interaction Alerts* 12/21/2023 Active [...] Oxide (Elemental) 400 MG Oral *Reorder from [employer] for eRx and Interaction Alerts* 12/21/2023 Active [...] Status W/U Status Risk Notes Problem Bipolar disorder , current episode depressed, moderate (F31.32) 12/21/19 24 Active confirmed Problem Attention deficit hyperactivity disorder, combined type (76215793) Attention-deficit hyperactivity disorder, combined type (F90.2) Active confirmed Vital Signs Heart Rate 87 /min 02/19/2025 Height-cm 170.18 cm 02/19/2025 Blood pressure diastolic 81 mm Hg 02/19/2025 Weight-kg 103.42 kg 02/19/2025 Height 67.00 in 02/19/2025 Blood pressure systolic 126 mm Hg 02/19/2025 Weight 228 lbs 02/19/2025 BMI 35.71 kg/m2 02/19/2025 Encounters Encounter Location Date Provider Diagnosis [facility] [address] [place] [address] 02/19/2025 Julian Cummings Encounter for screen ing for cardiovascular disorders Z13.6 ; Encounter for screening for depression Z13.31 ; Attention-deficit hyperactivity disorder, combined type F90.2 and Bipolar disorder, current episode depressed, moderate F31.32 [facility] [address] [place] [address] 03/27/2024 Julian Katza Attention-deficit hyperactivity disorder, combined type F90.2 and Bipolar disorder, current episode depressed, moderate F31.32 [facility] [address] [place] [address] 06/27/2024 Julian Katza Attention-deficit hyperactivity disorder, combined type F90.2 and Bipolar disorder, current episode depressed, moderate F31.32 [facility] [address] [place] [address] 09/26/2024 Julian Katza Attention-deficit hyperactivity disorder, combined type F90.2 and Bipolar disorder, current episode depressed, moderate F31.32 [facility], [facility] [address] [place] [address] 12/06/2024 Julianhumera Jonesoza Encounter for screen ing for cardiovascular disorders Z13.6 ; Encounter for screening for depression Z13.31 ; Attention-deficit hyperactivity disorder, combined type F90.2 and Bipolar disorder, current episode depressed, moderate F31.32 [facility], [facility] [address] [place] [address] 01/07/2025 Julian Cummings Encounter for screen ing for cardiovascular disorders Z13.6 ; Encounter for screening for depression Z13.31 ; Attention-deficit hyperactivity disorder, combined type F90.2 and Bipolar disorder, current episode depressed, moderate F31.32 [facility], [facility] [address] [place] [address] 03/05/2024 Julian Cummings [facility], [facility] [address] [place] [address] 03/08/2024 Julian Cummings [facility], [facility] [address] [place] [address] 03/13/2024 Julian Cummings Attention-deficit hyperactivity disorder, combined type F90.2 [facility], [facility] [address] [place] [address] 06/13/2024 Julian Cummings Attention-deficit hyperactivity disorder, combined type F90.2 [facility], [facility] [address] [place] [address] 06/27/2024 Julian Katza [facility], [facility] [address] [place] [address] 08/28/2024 Julian Cummings Attention-deficit hyperactivity disorder, combined type F90.2 [facility], [facility] [address] [place] [address] 09/03/2024 Julian Cummings [facility], [facility] [address] [place] [address] 10/31/2024 Julian Jonesoza [facility], [facility] [address] [place] [address] 01/07/2025 Julian Cummings [facility], [facility] [address] [place] [address] 01/21/2025 Julian Cummings [facility] [address] [facility] [address] [address] 06/13/2024 Julian Cummings Attention-deficit hyperactivity disorder, combined type F90.2 [facility] [address] [facility] [address] [address] 10/31/2024 Julian Cummings Attention-deficit hyperactivity disorder, combined type F90.2 [facility] [address] [facility] [address] [address] 10/31/2024 Julian Cummings Attention-deficit hyperactivity disorder, combined type F90.2 Assessments Encounter Date Diagnosis (ICD Code) Assessment Notes Treatment Notes Treatment Clinical Notes Section Notes 03/13/2024 Attention-defic it hyperactivity disorder, combined type (ICD-10 - F90.2) 08/28/2024 Attention-defic it hyperactivity disorder, combined type (ICD-10 - F90.2) 06/27/2024 Attention-defic it hyperactivity disorder, combined type [...] taking medications, especially when on methylphenidate. 09/26/2024 Attention-defic it hyperactivity disorder, combined type (ICD-10 - F90.2) 1. Depression: - Patient reports feeling more depressed over the last 6 months. - Currently on Cymbalta 30 mg twice daily and Vraylar 3 mg. - Cost Recovery Technician does not want to increase Vraylar due [...] bupropion and adjust dosage if necessary. 03/27/2024 Attention-defic it hyperactivity disorder, combined type [...] to medications and overall mental health status. 02/19/2025 Encounter for screening for cardiovascular disorders (ICD-10 - Z13.6) 06/13/2024 Attention-defic it hyperactivity disorder, combined type (ICD-10 - F90.2) 06/13/2024 Attention-defic it hyperactivity disorder, combined type (ICD-10 - F90.2) 01/07/2025 Encounter for screening for cardiovascular disorders (ICD-10 - Z13.6) 12/06/2024 Encounter for screening for cardiovascular disorders (ICD-10 - Z13.6) 10/31/2024 Attention-defic it hyperactivity disorder, combined type (ICD-10 - F90.2) 10/31/2024 Attention-defic it hyperactivity disorder, combined type (ICD-10 - F90.2) 12/06/2024 Encounter for screening for depression (ICD-10 - Z13.31) 01/07/2025 Encounter for screening for depression (ICD-10 - Z13.31) 09/26/2024 Bipolar disorder, current episode depressed, moderate (ICD-10 - F31.32) 1. Depression: - Patient reports feeling more depressed over the last 6 months. - Currently on Cymbalta 30 mg twice daily and Vraylar 3 mg. - Cost Recovery Technician does not want to increase Vraylar due [...] medications and overall mental health status. 06/27/2024 Bipolar disorder, current episode depressed, moderate [...] for taking medications, especially when on methylphenidate. 02/19/2025 Attention-defic it hyperactivity disorder, combined type (ICD-10 - F90.2) 01/07/2025 Attention-defic it hyperactivity disorder, combined type (ICD-10 - F90.2) 12/06/2024 Attention-defic it hyperactivity disorder, combined type (ICD-10 - F90.2) 12/06/2024 Bipolar disorder, current episode depressed, moderate (ICD-10 - F31.32) Electronic Prior Authorization was requested for Caplyta 21 MG Capsule. Provider can order medication once approval received. 01/07/2025 Bipolar disorder, current episode depressed, moderate (ICD-10 - F31.32) Electronic Prior Authorization was requested for Caplyta 21 MG Capsule. Provider can order medication once approval received. 02/19/2025 Bipolar disorder, current episode depressed, moderate (ICD-10 - F31.32) 02/19/2025 Other Lamotrigine Lamotrigine has a serious [...] Details Provider Name:Julian shaw, 03/29/2025 02:00:00 PM, [address] [facility] [address], [facility] [address], [place], [address], Insurance Providers Payer Name Payer Address Payer Phone Subscriber Number Group Number Insured Name Patient Relationship to Insured Coverage Start Date Coverage End Date [employer]a [address] [place] [phone] [id number] IZABELA PARRA Self - patient is the insured Medicaid-[place] l Medicaid [address] [address] [place] [address] [id number] IZABELA PARRA Self - patient is the insured Medical (General) History Medical History History ICD Code Problems: Attention deficit hyperactivit y disorder, combined type Bipolar affective disorder, current epis ode depression , Surgical History Surgery Date(Month/Year) Other 09/19/1998 Hysterectomy (43196) 09/19/1999 Removal of gallbladder (78347) 1 Any surgical history 09/19/2009 Appendectomy (34636) 09/20/1993
--- OUTSIDE RECORDS SUMMARY | 2025-03-02 22:40 | XMS_ITS | Data Portability ---
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 She voices understanding of this. Not available 02/23/2023 16:47:43 Plan of Treatment Reminders Order Date Submit Date Provider Last Modified By Organization Details Last Modified Time Details Appointments None recorded. Lab vitamin D, 25-hydroxy, total, serum 2022 023 [facility], [address], [place], [address], 3 04:44:38 Referral None recorded. Procedures colonoscopy screening (PROC) 2022 023 [email or web address] Jaeger MD, [address], [address], [place], [address], 3 14:31:06 Surgeries None recorded. Imaging MAMMO, screening, bilateral 2022 023 [email or web address], [address], [address], [address], 15:56:08 Medication Orders None recorded. Patient TargetsNo targets recorded. Patient Instructions Encounter Date Encounter Id Patient Instructions Last Modified By Organization Details Last Modified Time 02/23/2023 [id number] INFLUENZA VACCIN E Next vaccination to be given fall of [...] this time- Handout given LUNG CANCER SCREENING at age 53 SEXUALLY ACTIVE Yes, Patient is in monogamous relationship HEPATITIS C SCREENING Not indicated GLUCOSE SCREENING Known Diabetic LIPID SCREENING Diagnosis of Hyperlipidemia [email or web address] Not available 02/23/2023 16:51:34 Reason for Referral None Reported. Results Created Date Observation Date Name Description Value Unit Range Abnormal Flag Note LastModifiedBy Organization Detail LastModifiedTime 11/08/1911/08/2022 US, renal No observ ation record ed. [id number] Formerly [facility] [address] [place], [address], 11/17/2022 20:40:02 11/11/19 23 11/11/2022 CT, cervi daina spine , w/o contr ast No observ ation record ed. [id number] Formerly [facility] [address] [place], [address], 11/17/2022 20:40:02 11/11/19 23 11/11/2022 CT, lumba r spine , w/o contr ast No observ ation record ed. [id number] Former[facility] [address] [place], [address], 11/17/2022 20:40:02 11/26/19 23 11/24/2022 XR, lumba r spine No observ ation record ed. [address] [place], [address], 11/26/2022 17:06:46 11/26/19 23 11/24/2022 XR, cervi daina spine No observ ation record ed. [address] [place], [address], 11/26/2022 17:07:30 01/30/20 23 01/29/2023 XR, wrist No observ ation record ed. [address] [place], [address], 02/01/2023 11:13:37 07/22/20 23 07/22/2023 CT, head + brain , w/o contr ast No observ ation record ed. [address] [place], [address], 07/28/2023 17:21:08 Result Notes None recorded. Problems Name Problem SNOMED Code Status Onset Date Resolution Date Notes Provider Name and Address Organization Details Recorded Time Carpal tunnel syndrome of right wrist 1149272041259 08 Active 2021 Not Available [facility] 3 20:39:10 Suppurativ e arthritis 603646978 Active Not Available [facility] 3 20:39:10 Mixed anxiety and depressive disorder 127416726 Active 2022 GISELE Infante [address] [place] [address], [facility] [address], [place], [address] , [facility] 19:36:32 Type 2 diabetes mellitus without complicati on 091536187 Active 2022 ASIM Infante-C [address], [address], [address] , [facility] 19:36:38 Neuropathy 686481103 Active 2022 ASIM Infante-C [address], [address], [address] , [facility] 19:36:54 Asthma 418220940 Active 2022 ASIM Infante-C [address], [address], [address] , [facility] 19:36:57 Allergic rhinitis 47480248 Active 2022 ASIM Infante-C [address], [address], [address] , [facility] 19:37:23 Cardiovasc ular stress test abnormal 423742162 Active 2022 ASIM Infante-C [address], [address], [address] , [facility] 19:38:27 Vitamin D deficiency 92843393 Active 2022 ASIM Infante-C [address], [address] , [facility] 19:38:34 Fatigue 88211362 Active 2022 ASIM Infante-C [address], [address], [address] , [facility] 19:38:37 Chronic pain syndrome 285422126 [facility] 14:31:47 Problem Notes None recorded. Procedures Surgical History Date Name Laterality Status Provider Name and Address Organization Details Recorded Time Hysterectomy completed Not Available [facility] 11/17/2022 20:38:32 Neck Surgeries completed Not Available [facility] 11/17/2022 20:38:32 Back Surgeries completed Not Available [facility] 11/17/2022 20:38:32 Foot Surgery completed Not Available [facility] 11/17/2022 20:38:32 Knee Surgery completed Not Available [facility] 11/17/2022 20:38:32 Imaging Results None recorded. Procedure Notes None recorded. Medical Equipment None Reported. Allergies Allergen ID Allergen Name Allergen Category Reaction Reaction Severity Criticality Documentation Date Start Date Code Code System Note Provider Name and Address Organization Details Recorded Time 75177 Compazine medicatio n Not available Not available Not available 11/17/202274748 6 RxNorm (lock jaw) Not Available [facility] 20:39:59 Medications Name Sig Start Date [...] % 97 % 98 /min 98.1 [degF] 54869.4 7 g 128 mm[Hg] 76 mm[Hg] Not Available [facility] 3 20:38:57 Date Recorded Body height Body mass index (BMI) Body weight Body temperature Heart rate Oxygen saturation Oxygen saturation in Arterial blood by Pulse oximetry Systolic blood pressure Diastolic blood pressure Provider Name and Address Organization Details Last Updated DateTime 3 170.18 cm 28.2 kg/m2 88070.6 3 g 98.4 [degF] 82 /min 98 % 98 % 118 mm[Hg] 74 mm[Hg] Melina James [place] [facility] 3 16:17:44 Date Recorded Body mass index (BMI) Body height Body weight Provider Name and Address Organization Details Last Updated DateTime 05/25/2022 34.5 kg/m2 170.18 cm 94239.32 g Not Available [facility] 11/17/2022 20:38:59 Date Recorded Body mass index (BMI) Body height Body weight Provider Name and Address Organization Details Last Updated DateTime 08/24/2022 33.2 kg/m2 170.18 cm 05705.58 g Not Available [facility] 11/17/2022 20:38:59 Date Recorded Body mass index (BMI) Body height Oxygen saturation Oxygen saturation in Arterial blood by Pulse oximetry Heart rate Body temperature Body weight Systolic blood pressure Diastolic blood pressure Provider Name and Address Organization Details Last Updated DateTime 32.6 kg/m2 170.18 cm 97 % 97 % 98 /min 97.7 [degF] 91181.2 1 g 132 mm[Hg] 76 mm[Hg] Not Available [facility] 20:38:57 Social History Question Answer Notes LastModified by Organizat ion Details LastModified Time Tobacco Smoking Status Never Smoker Not Available [facility] 11/17/2022 20:38:28 Do You Wear A Helmet When Biking? No [id number].88049 [id number] Information not available 11/17/2022 What Is Your Level Of Caffeine Consumption? Moderate MIGRATION.28505 80615 Information not available 11/17/2022 In The 14 Days Before Symptom Onset, Have You Had Close Contact With A Laboratory-confir med COVID-19 While That Case Was Ill? No MIGRATION.63439 21795 Information not available 11/17/2022 In The 14 Days Before Symptom Onset, Have You Had Close Contact With A Person Who Is Under Investigation For COVID-19 While That Person Was Ill? No MIGRATION.76696 62573 Information not available 11/17/2022 What Type Of Diet Are You Following? REGULAR MIGRATION.57592 93147 Information not available 11/17/2022 Have There Been Any Changes To Your Family Or Social Situation? No MIGRATION.50579 72657 Information not available 11/17/2022 What Is The Fluoride Status Of Your Home? Unknown MIGRATION.12080 03748 Information not available 11/17/2022 Do You Use Insect Repellent Routinely? No MIGRATION.75359 62324 Information not available 11/17/2022 Where Do You Live? [place] MIGRATION.03262 02579 Information not available 11/17/2022 What Was The Date Of Your Most Recent Tobacco Screening? 02/23/2023 [email or web address] Information not available 02/23/2023 Do You Have Any Pets? Yes MIGRATION.78547 74333 Information not available 11/17/2022 Do You Have Smoke And Carbon Monoxide Detectors In Your Home? Yes MIGRATION.34858 12259 Information not available 11/17/2022 Are You Passively Exposed To Smoke? No MIGRATION.18331 63365 Information not available 11/17/2022 Are There Any Smokers In Your House? No MIGRATION.33339 10190 Information not available 11/17/2022 Do You Use Sunscreen Routinely? No MIGRATION.41066 71064 Information not available 11/17/2022 Have You Recently Traveled Abroad? No MIGRATION.23987 66376 Information not available 11/17/2022 Do You Have Any Dietary Restrictions? No MIGRATION.71354 83986 Information not available 11/17/2022 Sex: Unknown Functional Status Question Answer Note LastModified by [employer] Details LastModified Time Do you or have you ever used any other forms of tobacco or nicotine? No MIGRATION.[id number] 6 Information not available 11/17/2022 What is your level of alcohol consumption? None MIGRATION.[id number] 6 Information not available 11/17/2022 What is your exercise level? Moderate MIGRATION.[id number] 6 Information not available 11/17/2022 Mental Status Question Answer Note LastModified by [employer] Details LastModified Time Do you feel stressed (tense, restless, nervous, or anxious, or unable to sleep at night)? [id number] MIGRATION.[id number] 6 Information not available 11/17/2022 Family History Relationship Description Onset Age of this Age Resolved Age Notes LastModified by Organization Details LastModified Time Mother Family history of malignant neoplasm [id number] Not available 11/17/2022 20:38:33 Medical History Condition Response DIABETES, TYPE Y Gynecological HistoryNo gynecological history recorded. Obstetrics History GPAL:G 0 P 0 0 0 0 Past Encounters Encounter ID Performer Location Encounter Start Date Encounter Closed Date Diagnosis/Indication Diagnosis SNOMED-CT Code Diagnosis ICD10 Code Diagnosis Note [id number] Isabella shaw MD [facility] [address] [address] [facility] [place] [address] 12/02/2021 00:00:00 12/02/2021 17:07:21 [id number] Isabella shaw MD [facility] Internal [facility] [place] [address] [place] [address] [place] [address] 12/30/2021 00:00:00 12/30/2021 14:49:27 [id number] Edward Osborne MD [facility] [place] [address] [place] [address] 01/12/2022 00:00:00 01/12/2022 15:29:24 [id number] Isabella shaw MD [facility] Internal [facility] [place] [address] [place] [address] [place] [address] 01/20/2022 00:00:00 01/20/2022 14:52:49 [id number] Isabella shaw MD [facility] Internal [facility] [place] [address] [place] [address] [place] [address] 02/03/2022 00:00:00 02/03/2022 15:30:47 [id number] Isabella shaw MD [facility] Internal [facility] [place] [address] [place] [address] [place] [address] 03/31/2022 00:00:00 03/31/2022 16:28:57 [id number] Edward Osborne MD [facility] [place] [address] [place] [address] 04/09/2022 00:00:00 04/09/2022 13:24:19 [id number] Edward Osborne MD [facility] [place] [address] [place] [address] 04/27/2022 00:00:00 04/27/2022 16:52:36 [id number] Edward Osborne MD [facility] [place] [address] [place] [address] 05/25/2022 00:00:00 05/25/2022 16:49:47 [id number] Edward Osborne MD [facility] [place] [address] [facility] [address] [place] [address] 08/24/2022 00:00:00 08/24/2022 17:22:21 [id number] Isabella shaw MD [facility] Internal [facility] [place] [address] [place] [address] [place] [address] 08/25/2022 00:00:00 08/25/2022 16:57:02 [id number] Isabella shaw MD [facility] Internal Med [address] [address] 11/01/2022 00:00:00 11/01/2022 16:01:52 [id number] Isabella shaw MD [facility] Internal Med [place] [address] [place] [address] [place] [address] 02/23/2023 16:02:31 02/23/2023 16:32:14 Mixed anxiety and depressive disorder 125658988 F41.8 now following psychiatry - Dr. Rollins's officeon wellbutrin from [facility] office if any change in mood or behaviorSh e is able to commit to safety todayconti nue counseling Type 2 wendy betes mellitus without complication 430712704 E11.9 on Trulicity, glimiperid efollows endocrinol ogy- Dr. Garcia in [facility] eye exam- 11/2021- encouraged her to schedule pt is aware of side effects, risks, benefitspt denies any personal or family history of MEN II or MTC, denies and personal history of pancreatit ispt knows to call the office if any severe n/v or abdominal pain Neuropathy 241983062 G62 .9 follows podiatry- Dr. Harley Gipson gabapentin from [facility] Asthma 098623575 J45.90 9 on proair prnon Symbicort, she is worse at effects, risks, benefitssh e is aware to rinse and spit after use Carpal julita kendra syndrome of right wrist [id number] 08879 G56.01 now following hand surgery- Dr. Osborne Allergic rhinitis 772345 04 J30.9 on flonase and singulairc all office if any change in mood or behavior Body mass index 30+ - obesity 755723639 Z68.31 recommend healthy, well balanced mealsfocus on lean meats, fresh vegetables , fresh fruits, whole grainsredu ce fast/proce ssed foods or eating out to no more than 1-2 times per weekaim to get 30 min of exercise most days of the week- walking is a great choice Cardiovasc ular stress test abnormal 866855486 R94.39 cardiac cath was ok per cardiologi st note Vitamin D deficiency 347 85019 E55.9 hold vitamin d x 4 weeks and then repeat levelnever got repeat level- encouraged her to get Fatigue 03530318 R53.83 no explanatio n for fatigue in labs, recommend sleep study- she declines Screening mammography 24 508362 Z12.31 Family his tory of cancer of colon 167081469 Z80.0 Adult heal th examination 614601889 Z00.01 Depression screening 171 203448 Z13.31 Body mass index 25-29 - overweight 214071167 Z68.28 recommend healthy, well balanced mealsfocus on [...] Member ID Guo Member ID Guarantor Name 02/20/2023 1 PRETTY [id number] Niles Croft [id number] 1 Niles Croft Notes Date Note Type Note Provider Name and Address Organization Details Recorded Time 02/23/2023 text/html Niles presents today for follow up. She is also due for annual wellness exam. she reports she has had a ne the foot surgery with her logistics specialist. She follows up again in a couple weeks. She is just on a regular tennis shoe and not in a boot at this time. She continues to follow Endocrinology for her diabetes. They order all of her labs. She also continues to follow with her cloth seconds sorter regularly. She still refuses her sleep study. [...] due for mammogram. Radha Kaminski, ASIM-C [address] [facility], [facility] [address], [place], [address], [place] [facility] [employer] 02/23/2023 16:52:24 OBGyn Episode No OBEpisode recorded.
--- OUTSIDE RECORDS SUMMARY | 2025-03-02 22:41 | XMS_ITS ---
Author Organization [facility] [employer] Address [address] [facility] [address] [place] [address] Care Team Providers Care Inside Trucker Name Role Phone Roland Rojas DO Primary Care Provider Unavail able Julian Cummings Unavailable [phone] Allergies Allergen (clinical drug ingredient) Drug/Non Drug Allergy documented on EMR Reaction Allergy Type Onset Date Status Compazine Unknown Drug Allergy 12/21/2023 Active REASON FOR VISIT 6 week f/u, DENIED UDS, DENIED FORMS Medications Medication SIG (Take, Route, Frequency, Duration) Notes Start Date End Date Status lamoTRIgine 100 MG 1 tablet Orally Once a day for 30 days 02/19/2025 Active lamoTRIgine 25 MG 1 tablet once a day for 14 days, 2 tablets once a day for 16 days Orally see sign for 30 days 02/19/2025 Active Vraylar 3 mg 1 capsule Oral once daily for 90 days Active Methylphenidate HCl ER 36 MG 2 tablet every morning Oral once a day for 30 days 02/19/2025 Active Mounjaro 5 MG/0.5ML Subcutaneous for 28 Days Active tiZANidine HCl 4 MG Oral 12/21/2023 Active Magnesium Oxide (Elemental) 400 MG Oral *Reorder from [facility] for eRx and Interaction Alerts* 12/21/2023 Active Glimepiride 2 MG Oral 12/21/2023 Ac tive ICOSAPENT ETHYL 1 GRAM CAPSULE *Reorder from [employer] for eRx and Interaction Alerts* 12/21/2023 Active Rosuvastatin Calcium 40 MG Oral 12/21/2023 Active Montelukast Sodium 10 MG Oral 12/21/2023 Active oxyCODONE HCl 5 MG Oral 12/21/2023 Active Gabapentin 300 MG Oral 12/21/2023 A ctive OneTouch Ultra In Vitro 12/21/2023 Acti ve Estradiol 2 MG Oral 12/21/2023 Acti ve buPROPion HCl ER (XL) 150 MG 1 tablet in the morning Oral Once a day for 90 days Active Social History Sex Assigned At : Social History Observation Description Sex Assigned At Female Vital Signs Blood pressure systolic 126 mm Hg 02/20/20 25 Blood pressure diastolic 81 mm Hg 025 Heart Rate 87 /min 02/19/2025 Height 67.00 in 02/19/2025 Weight 228 lbs 02/19/2025 BMI 35.71 kg/m2 02/19/2025 Height-cm 170.18 cm 02/19/2025 Weight-kg 103.42 kg 02/19/2025 Encounters Encounter Location Date Provider Diagnosis [facility] [address] [facility] [address] [address] 02/19/2025 Julian Cummings Encounter for screen ing for cardiovascular disorders Z13.6 ; Encounter for screening for depression Z13.31 ; Attention-deficit hyperactivity disorder, combined type F90.2 and Bipolar disorder, current episode depressed, moderate F31.32 Assessments Encounter Date Diagnosis (ICD Code) Assessment Notes Treatment Notes Treatment Clinical Notes Section Notes 02/19/2025 Encounter for screening for cardiovascular disorders (ICD-10 - Z13.6) 02/19/2025 Encounter for screening for depression (ICD-10 - Z13.31) 02/19/2025 Attention-deficit hyperactivity disorder, combined type (ICD-10 - [...] disabling or disfiguring. Comment reaction include, nausea/vomiting, dizziness/vertigo, visual disturbances, somnolence, ataxia, pruritus/rash, pharyngitis, headache, [...] any of the serious side effect develops. Plan Of Treatment Medication Medication Name Sig Start Date Stop Date Notes lamoTRIgine 100 MG 1 tablet Orally Once a day for 30 days 02/19/2025 lamoTRIgine 25 MG 1 tablet once a day for 14 days, 2 tablets once a day for 16 days Orally see sign for 30 days 02/19/2025 Vraylar 3 mg 1 capsule Oral once daily for 90 days Methylphenidate HCl ER 36 MG 2 tablet ev moshe morning Oral once a day for 30 days 02/19/2025 buPROPion HCl ER (XL) 150 MG 1 tablet in the morning Oral Once a day for 90 days Treatment Notes Assessment Notes Other Lamotrigine Lamotrig ine has a serious rash requiring hospitalization and [...] disabling or disfiguring. Comment reaction include, nausea/vomiting, dizziness/vertigo, visual disturbances, somnolence, ataxia, pruritus/rash, pharyngitis, headache, [...] any of the serious side effect develops. Next Appt Details Follow Up: 4 Weeks, Reason: f/u bipolar d/o, started lamotrigine Provider Name:Julian shaw, 03/29/2025 02:00:00 PM, [address] [facility] [address], [facility] [address], [place], [address], Progress Notes * IZABELA PARRA GDOB:1969 (54 yo F)Acc No.[id number]:02/19/2025 Patient: Bianka IZABELA FRANCES Ledy Provider: LEOLA IQBAL :1970 A ge:54 Y S ex:Female Date:02/19/2025 Address:[address] [place], [place] [id number] Pcp:Roland Rojas DO Subjective: * Chief Complaints: * 1 . 6 week f/u. 2. DENIED UDS, DENIED FORMS. * HPI: H istory of Presenting Problem: Depression n o motivation, lack of self care. d epression symptoms worse around the holidays. . Mood lability b ipolar d/o i rritability. ADHD O nset: years ago i rritability, poor motivation, talks excessively. P ast Medication history: duloxetine- sedation, bupropion xl, abilify. * ROS: P erformance Met: N ormal blood pressure reading documented, follow-up not required ( G8783). * Medical History: P roblems: Attention deficit hyperactivity disorder, combined type, Bipolar affective disorder, current episode depression, ,. * Surgical History: O ther 09/19/1998, Hysterectomy (41202) 09/19/1999, Removal of gallbladder (38198) 09/19/2000, Any surgical history 09/19/2009, Appendectomy (40214) 09/20/1993. * Social History: M igrated Social History: M igrated Social History: Alcohol Intake: None 04/07/2022,Tobacco Years: Never smoker 12/21/2023. * Medications: T aking Estradiol 2 MG Tablet Oral , Taking OneTouch Ultra Strip In Vitro , Taking Montelukast Sodium 10 MG Tablet Oral , Taking Rosuvastatin Calcium 40 MG Tablet Oral , Taking ICOSAPENT ETHYL 1 GRAM CAPSULE , Notes to Pharmacist: *Reorder from [facility] for eRx and Interaction Alerts*, Taking Gabapentin 300 MG Capsule Oral , Taking oxyCODONE HCl 5 MG Tablet Oral , Taking Glimepiride 2 MG Tablet Oral , Taking Magnesium Oxide (Elemental) 400 MG Tablet Oral , Notes to Pharmacist: *Reorder from [facility] for eRx and Interaction Alerts*, Taking tiZANidine HCl 4 MG Tablet Oral , Taking Mounjaro 5 MG/0.5ML Solution Auto-injector Subcutaneous , Taking Methylphenidate HCl ER 36 MG Tablet Extended Release 2 tablet every morning Oral once a day , Notes to Pharmacist: fill 09/14/24, Taking buPROPion HCl ER (XL) 150 MG Tablet Extended Release 24 Hour 1 tablet in the morning Oral Once a day , Discontinued Vraylar 1.5 MG Capsule 1 capsule Oral once daily , Discontinued Caplyta 21 MG Capsule 1 capsule Orally Once a day , Medication List reviewed and reconciled with the patient * Allergies: C ompazine: Allergy - Onset Date 12/21/2023. Objective: * Vitals: B P:126/81mm Hg, HR:87/min, Wt:228lbs, Wt-k.42 kg, Ht: 67.00 in, Ht-cm: 170.18 cm, BMI:35.71Index, Body Surface Area: 2.21. * Examination: P sychiatry: Appearance: w ell-groomed, well-nourished, .... Abnormal body movements: n one. Affect / mood: a ppropriate, full range. Attention: g ood. Attitude: c ooperative. Suicidal ideation: n one. Memory status: n o impairment noted. Degree of awareness of surroundings: w ithin normal limits.? Delusions: n o. Hallucinations: n o. Insight: g ood. Intellectual functioning: n o impairment noted. Judgement: g ood. Orientation: a wake, alert and oriented x 3. Perceptual disorders: n o perceptual disorder noted. Psychomotor activity: w ithin normal range. Speech / language: a ppropriate pitch/modulation, clear and coherent, normal rate, volume, and articulation (RVR), proper grammar used. Thought content: a ppropriate. Thought process: i ntact. Assessment: * Assessment: 1. A ttention-deficit hyperactivity disorder, combined type - F90.2 (Primary) 2 . E ncounter for screening for cardiovascular disorders - Z13.6 3 . E ncounter for screening for depression - Z13.31 4 . B ipolar disorder, current episode depressed, moderate - F31.32 Plan: * Treatment: 2. B ipolar disorder, current episode depressed, moderate Refill buPROPion HCl ER (XL) Tablet Extended Release 24 Hour, 150 MG, 1 tablet in the morning, Oral, Once a day, 90 days, 90 Tablet, Refills 1; R efill Vraylar Capsule, 3 mg, 1 capsule, Oral, once daily, 90 days, 90, Refills 1; S tart lamoTRIgine Tablet, 25 MG, 1 tablet once a day for 14 days, 2 tablets once a day for 16 days, Orally, see sign, 30 days, 46, Refills 0; S tart lamoTRIgine Tablet, 100 MG, 1 tablet, Orally, Once a day, 30 days, 30, Refills 1. 3. O tammy Notes: Lamotrigine Lamotrigine has a serious rash requiring [...] disabling or disfiguring. Comment reaction include, nausea/vomiting, dizziness/vertigo, visual disturbances, somnolence, ataxia, pruritus/rash, pharyngitis, headache, [...] any of the serious side effect develops. * Procedure Codes: G 8783 NORMAL BP READING DOC F/U NOT RQR, G8752 MOST RECENT SYSTOLIC BP < 140MM HG, G8754 MOST RECENT DIASTOLIC BP < 90MM HG * Follow Up: 4 Weeks (Reason: f/u bipolar d/o, started lamotrigine) * Billing Information: * Visit Code: 33803 OFFICE OUTPATIENT VISIT 25 MINUTES DETAILED HISTORY AND EXAM/MODERATE MEDICAL DECISION MAKING. * Procedure Codes: G8783 NORMAL BP READING DOC F/U NOT RQR. G8752 MOST RECENT SYSTOLIC BP < 140MM HG. G8754 MOST RECENT DIASTOLIC BP < 90MM HG. * Electronic signature of LEOLA Rosas on 03/02/2025 at 10:40 PM CDT Sign off status: Pending * Provider: LEOLA IQBAL Date: 02/19/2025 Generated for Dilip brown/Elen/Rachel on: 03/02/2025 10:40 PM CDT History and Physical Notes * HPI (History of Present Illness) Category Sub-Category Detail Notes Category Not es History of Presenting Problem Depression no motivation, lack of self care. depression symptoms worse around the holidays. Mood lability bipolar d/o irritabi lity ADHD Onset: years ago irr itability, poor motivation, talks excessively Examination Category Sub-Category Detail Notes Category Not [...]
--- OUTSIDE RECORDS SUMMARY | 2025-03-02 22:41 | XMS_ITS | Referral Summary ---
Author Organization [facility] [employer] Address [address] [place] [address] Care Team Providers Care Qualitative Executive Researcher Name Role Phone Roland Rojas DO Primary [...] region 05/17/2023 Coronary artery disease invo lving [place] coronary artery of [place] heart without angina pectoris 04/19/2023 Essential hypertension [...] (01/24/2024): Added automatically from request for surgery [id number] Nonspecific abnormal results of function study o [...] on file Legal Sex Female 7:45 PM DIGITAL ASSET COORDINATOR Gender Identity Not on file Sexual Orientation Not on file Last Filed Vital Signs Vital Sign Reading Time Taken Comments Blood Pressure 118/82 08/23/2024 2:00 PM DIGITAL ASSET COORDINATOR Pulse 82 08/23/2024 2:00 PM DIGITAL ASSET COORDINATOR Temperature 36.5 C (97.7 F) 02/18/2022 2:55 PM CDT Respiratory Rate 17 05/17/2023 1:17 PM CDT Oxygen Saturation 99% 08/23/2024 2:00 PM DIGITAL ASSET COORDINATOR Inhaled Oxygen Concentration - - Weight 107 kg (236 lb) 08/23/2024 2:00 PM DIGITAL ASSET COORDINATOR Height 170.2 cm (5' 7) 08/23/2024 2:00 PM DIGITAL ASSET COORDINATOR Body Mass Index 36.96 08/23/2024 2:00 PM DIGITAL ASSET COORDINATOR Plan of Treatment Not on file Procedures Procedure Name Priority Date/Time Associated Diagnosis Comments POCT LIPID PANEL Routine 08/23/2024 2:54 PM DIGITAL ASSET COORDINATOR Coronary artery disease involving [place] coronary artery of [place] heart without angina pectoris Hyperlipidemia associated with type 2 diabetes mellitus (HCC) EGFR STAT 02/18/2022 1:07 PM CDT from Last 3 Months or Most Recently Relevant to Health Maintenance Results * POCT lipid panel (08/23/2024 2:54 PM DIGITAL ASSET COORDINATOR) Cholesterol, POC 234 mg/dL HDL, POC 48 mg/dL Triglycerides, POC 305 mg/dL LDL Cholesterol POC 125 mg/dL Chol/HDL Ratio, POC 4.9 Non-HDL Cholesterol, POC 186 mg/dL Cholesterol Total, POC 234 mg/dL Capillary blood 08/23/2024 2 :54 PM DIGITAL ASSET COORDINATOR Rhett Ramírez MD POINT OF CARE TEST [...] ORDERABLES Final Re sult Performing Organization Address City/State/[facility] Co de Phone Number AMANUEL LOPEZ [address] [facility] Department [place] [address] from Last 3 Months or Most Recently Relevant to Health Maintenance Insurance [employer] OPEN ACCESS CIGNA OPEN ACCESS CIGNA OPEN ACCESS Care Teams Qualitative Executive Researcher Relationship Specialty Start Date End Date Roland Rojas DO [address] [place] [address] PCP - General Family Medicine 01/24/24
--- OUTSIDE RECORDS SUMMARY | 2025-03-02 22:41 | XMS_ITS | Clinical Summary ---
Author Organization [facility] [employer] Address [address] [place] [address] Care Team Providers Care Administrative Fellow Name Role Phone Roland Rojas DO Primary [...] region 05/17/2023 Coronary artery disease invo lving [place] coronary artery of [place] heart without angina pectoris 04/19/2023 Essential hypertension [...] (01/24/2024): Added automatically from request for surgery [id number] Nonspecific abnormal results of function study o [...] on file Legal Sex Female 7:45 PM FRAUD EXAMINER Gender Identity Not on file Sexual Orientation Not on file Obstetrics History Last Filed Vital Signs Vital Sign Reading Time Taken Comments Blood Pressure 118/82 08/23/2024 2:00 PM FRAUD EXAMINER Pulse 82 08/23/2024 2:00 PM FRAUD EXAMINER Temperature 36.5 C (97.7 F) 02/18/2022 2:55 PM CDT Respiratory Rate 17 05/17/2023 1:17 PM CDT Oxygen Saturation 99% 08/23/2024 2:00 PM FRAUD EXAMINER Inhaled Oxygen Concentration - - Weight 107 kg (236 lb) 08/23/2024 2:00 PM FRAUD EXAMINER Height 170.2 cm (5' 7) 08/23/2024 2:00 PM FRAUD EXAMINER Body Mass Index 36.96 08/23/2024 2:00 PM FRAUD EXAMINER Plan of Treatment Health Maintenance Due Date [...] POCT LIPID PANEL Routine 08/23/2024 2:54 PM FRAUD EXAMINER Coronary artery disease involving [place] coronary artery of [place] heart without angina pectoris Hyperlipidemia associated with type 2 diabetes mellitus (HCC) EGFR STAT 02/18/2022 1:07 PM CDT from Last 3 Months or Most Recently Relevant to Health Maintenance Results * POCT lipid panel (08/23/2024 2:54 PM FRAUD EXAMINER) Cholesterol, POC 234 mg/dL HDL, POC 48 mg/dL Triglycerides, POC 305 mg/dL LDL Cholesterol POC 125 mg/dL Chol/HDL Ratio, POC 4.9 Non-HDL Cholesterol, POC 186 mg/dL Cholesterol Total, POC 234 mg/dL Capillary blood 08/23/2024 2 :54 PM FRAUD EXAMINER Rhett Ramírez MD POINT OF CARE TEST [...] ORDERABLES Final Re sult AMANUEL [facility] [address] [facility] Department [place] [address] from Last 3 Months or Most Recently Relevant to Health Maintenance Insurance [employer] OPEN ACCESS CIGNA OPEN ACCESS [facility] OPEN ACCESS Care Teams Administrative Fellow Relationship Specialty Start Date End Date Roland Rojas DO [address] [place] [address] PCP - General Family Medicine 01/24/24
--- OUTSIDE RECORDS SUMMARY | 2025-03-02 22:41 | XMS_ITS | Clinical Summary ---
Author Organization [facility] [employer] Address [address] [facility] [place] [address] Care Team Providers Care Public Relations Representative Name Role Phone Radha Kaminski MYRON-FINANCE AND ADMINISTRATION MANAGER Primary Care Provider [phone] Harmony Mcrae MD Unavailable Source Comments [facility] [employer],non-owned Affiliates and Associated Physician Practices is amultiple site organization consisting of ambulatory clinics and hospital sitesin [place], [place], [place] and [place]. This disclosure is being madepursuant to the Care Everywhere program and may not contain all information available regarding this patient. Last updated 18.[facility] Allergies Active Allergy Reactions Criticality [...] fluticasone propionate (FLONASE) 50 MCG/ACT nasal spray [place] 2 (two) sprays into each nostril once daily Active blood glucose (AdStageTOUCH ULTRA) test strip USE TO TEST THREE TIMES A DAY 1 Active estradiol (ESTRACE) 2 MG tablet Take 1 (one) tablet by mouth every 24 hours Active Multiple Vitamins-Edgar als (MULTI VITAMIN/MINERA LS) TABS Take 1 (one) tablet by mouth once daily Active [place]-3 Fatty Acids (FISH OIL) 1000 MG capsule Take 1 (one) capsule by mouth once daily Active Cholecalcifero l 1.25 MG (71211 UT) Take 1 capsule by mouth every [...] naloxone HCl (Narcan) 4 MG/0.1ML nasal spray [place] 1 (one) spray into the nose Active [...] day by topical route. Active HYDROcodone-ac etaminophen (Tatum) 5-325 MG tablet Take 1 (one) tablet by mouth two times daily at 4am and 4pm Active indomethacin (Indocin) 50 MG capsule TAKE 1 CAPSULE BY MOUTH THREE TIMES A DAY ADMINISTER WITH FOOD OR MILK Active mupirocin (Bactroban) 2 % ointment 1 APPLIC TOPICALLY TWICE A DAY Active nystatin (Mycostatin) 952443 UNIT/ML suspension Take 5 mL 4 times [...] on file Legal Sex Female 5:06 PM MERCHANT SEAMAN Gender Identity Not on file Sexual Orientation Not on file Last Filed Vital Signs Vital Sign Reading Time Taken Comments Blood Pressure 122/68 10/06/2023 2:03 PM MERCHANT SEAMAN Pulse 79 10/06/2023 2:03 PM MERCHANT SEAMAN Temperature 36.6 C (97.9 F) 01/07/2022 2:03 PM CDT Respiratory Rate 16 08/02/2023 2:35 PM MERCHANT SEAMAN Oxygen Saturation 97% 08/02/2023 2:35 PM MERCHANT SEAMAN Inhaled Oxygen Concentration - - Weight 93.9 kg (207 lb) 10/06/2023 2:03 PM MERCHANT SEAMAN Height 170.2 cm (5' 7) 10/06/2023 2:03 PM MERCHANT SEAMAN Body Mass Index 32.42 10/06/2023 2:03 PM MERCHANT SEAMAN Plan of Treatment Health Maintenance Due Date Last Done Comments COLOGUARD (AGES 45-75) - COLON CA SCREENING 1970 COLON MONITORING 1968 COLONOSCOPY - COLON CA SCREENING 1968 CT COLONOGRAPHY - COLON CA SCREENING 1970 Colorectal Cancer Screening 1968 FIT - COLON CA SCREENING 1968 FLEX SIG - COLON CA SCREENING 1968 MAMMOGRAM 1968 HIV SCREENING 1983 DTAP/TDAP/TD VACCINES (1 - Tdap) 1987 HEPATITIS B VACCINE (1 of 3 - 19+ 3-dose series) 1987 PAP SMEAR 1989 PNEUMOCOCCAL VACCINE 50+ (1 of 1 - PCV) 2018 ZOSTER VACCINE (1 of 2) 2018 COVID-19 VACCINE ( - season) 2024 DEPRESSION SCREENING 09/19/2024 INFLUENZA [...] COMPREHENSIVE METABOLIC PANEL Routine 08/02/2023 3:29 PM MERCHANT SEAMAN Arthralgia, unspecified joint HEPATITIS SCREEN ACUTE ([facility]) Routine 08/02/2023 3:28 PM MERCHANT SEAMAN Arthralgia, unspecified joint from Last 3 Months or Most Recently Relevant to Health Maintenance Results * (ABNORMAL) COMPREHENSIVE METABOLIC PANEL (08/02/2023 3:29 PM MERCHANT SEAMAN) Glucose 95 70 - 99 mg/dL [facility] [...] BLOOD SPECIMEN / Unknown 08/02/2023 3:29 PM MERCHANT SEAMAN 08/02/2023 Narrative Resulting Agency Comment Lab Testing performed at: [employer] [facility] [id number] [facility] [id number] Harmony Mcrae MD LAB - CHEMISTRY ORDERABLES Final Result [facility] INSURANCE BILL [address] [place] [address] * HEPATITIS SCREEN ACUTE ([facility]) (08/02/2023 3:28 PM MERCHANT SEAMAN) Hepatitis A Virus Antibody IgM Negative Negative [facility] INSURANCE BILL Hepatitis B Virus Surface Antigen Negative Negative [facility] INSURANCE BILL Hepatitis B Core Virus Antibody IgM Negative Negative [facility] INSURANCE BILL Hepatitis C Antibody Non Reactive Non Reactive [facility] INSURANCE BILL Blood BLOOD SPECIMEN / Unknown 08/02/2023 3:28 PM MERCHANT SEAMAN 08/02/2023 Narrative Resulting Agency Comment [facility] [address] [facility] [id number] Harmony Mcrae MD LAB - CHEMISTRY ORDERABLES Final Result [facility] INSURANCE BILL [address] [place] [address] from Last 3 Months or Most Recently Relevant to Health Maintenance Insurance Care Teams Public Relations Representative Relationship Specialty Start Date End Date Radha Kaminski APRN-SCOTT [address] [facility] [address] [place] [id number] PCP - General Nurse Practitioner Family 12/03/21 [place] [address] [place] [address] [place] [phone] Rheumatology 12/03/21
--- OUTSIDE RECORDS SUMMARY | 2025-03-02 22:41 | XMS_ITS | Encounter Summary ---
Author Organization [facility] Address [address] [place] [address] Care Team Providers Care Area Forester Name Role Phone Radha Kaminski MYRON-MANAGER SHIP Primary Care Provider [phone] Harmony Mcrae MD Unavailable Encounter Details Date Type Department Care Team (Late st Contact Info) Description 06/20/2023 Lab Requisition [facility] - DermPath Lab [address] [facility] [place] [address] Andrzej Aguilar MD [address] [place] [address] Social History Tobacco Use Types Packs/Day Years Used Date Smoking Tobacco: Never Smokeless Tobacco: Never Alcohol Use Standard Drinks/Week Comments Never 0 (1 standard drink = 0.6 oz pur e alcohol) Comments Unknown Sex and Gender Information Value Date Recorded Sex Assigned at Not on file Legal Sex Female 5:06 PM HOME SECURITY ALARM INSTALLER Gender Identity Not on file Sexual Orientation Not on file documented as of this encounter Plan of Treatment Not on file documented as of this encounter Procedures Procedure Name Priority Date/Time Associated Diagnosis Comments DERMATOPATHOLOGY Routine 06/20/2023 12:0 0 AM CDT documented in this encounter Results * DERMATOPATHOLOGY (06/20/2023 12:00 AM CDT) Case Report Dermatopathology Report Case: [id number] Authorizing Provider: Andrzej Aguilar MD Collected: 06/20/2023 12:00 AM Ordering Location: [facility] DermPath Lab Received: 06/21/2023 06:10 [...] characteristic determined by the Dermatopathology Laboratory at [facility], directed by Dr. Jean-Pierre Miller. These tests need not be, and therefore are not, approved by the [place] Food and Drug Administration. The tests are used for clinical purposes. Billing Codes Specimen Charges Stain Charges 89107 1 97230 1 4:35 PM CDT DERMATOPATHOLOGY LABORATORY Embedded Images 4:35 PM CDT DERMATOPATHOLOGY LABORATORY Pathology/Cytolog y TISSUE SPECIMEN FROM SKIN / Unknown 06/20/2023 06/21/2023 6:10 AM CDT us Andrzej Aguilar MD LAB - PATHOLOGY/CYTOLOGY ORDERAB LES Final Result DERMATOPATHOLOGY LABORATORY [facility] - Department of Dermatology [facility] Medicine [address] [facility] Floor [address] [phone] documented in this encounter Visit Diagnoses Not on filedocumented in this encounter Care Teams Area Forester Relationship Specialty Start Date End Date Radha Kaminski APRN-MANAGER SHIP [address] [facility] [address] [place] [phone] PCP - General Nurse Practitioner Family 12/03/21 [place] [address] [place] [address] [place] [phone] Rheumatology 12/03/21 documented as of this encounter
--- NOTE | 2025-03-02 22:47 | ED.UPPEXIN ---
HPI - Extremity Injury (Upper) General Chief Complaint: Extremity Injury, Upper Stated Complaint: R Pinkey Swollen Time Seen by Provider: 03/02/25 22:45 Source: patient Mode of arrival: ambulatory Limitations: no limitations History of Present Illness HPI narrative: 54 YEARS OLD WHITE FEMALE CAME TO THE ED COMPLAINING OF RIGHT 5TH FINGER PAIN STARTED 1 AND HAVE- 2 WEEKS AGO, WAS SEEN IN OUR EMERGENCY ROOM AND STARTED ON CLINDAMYCIN 300 T.I.D. FOR 7 DAYS WITH SLIGHT IMPROVEMENT BEEN WAS SEEN BY HER FAMILY PHYSICIAN. PATIENT DENIES ANY FEVER, CHILLS, NAUSEA, VOMITING, TRAUMA. HISTORY OF HYPERTENSION AND DIABETES. Related Data Home Medications ?Medication ?Instructions ?Recorded ?Confirmed ?Last Taken ?Type estradiol 2 mg tablet 1 tablet PO DAILY 02/23/22 02/15/25 Unknown History gabapentin 300 mg capsule 300 mg PO TID 02/23/22 02/15/25 03/04/22 History magnesium oxide 400 mg PO DAILY 02/23/22 02/15/25 03/01/22 History cariprazine 1.5 mg capsule 3 mg PO DAILY 06/04/23 02/15/25 Unknown History (Vraylar) bupropion HCl 150 mg 24 hr tablet, 150 mg PO DAILY 07/22/23 02/15/25 Unknown History extended release methylphenidate HCl 36 mg 72 mg PO DAILY 07/22/23 02/15/25 Unknown History tablet,extended release 24 hr (Concerta) rosuvastatin 20 mg tablet 20 mg PO DAILY 07/22/23 02/15/25 Unknown History icosapent ethyl 1 gram capsule 2 g PO BID 12/02/23 02/15/25 Unknown History cyanocobalamin (vitamin B-12) 500 mcg subcut MONTHLY 02/13/25 02/15/25 Unknown History 1,000 mcg/mL injection solution cyclobenzaprine 10 mg tablet 10 mg PO ONCE 02/13/25 02/15/25 Unknown History oxycodone 5 mg tablet 5 mg PO Q8H PRN 02/13/25 02/15/25 Unknown History Allergies Allergy/AdvReac Type Severity Reaction Status Date / Time prochlorperazine Allergy Severe Other Verified 03/02/25 22:43 ciprofloxacin Allergy Mild Rash Verified 03/02/25 22:43 Review of Systems Review of Systems: All systems reviewed & are unremarkable except as noted in HPI and below PMFSH Past Medical History Medical History Excessive daytime sleepiness Chronic mixed headache syndrome Obesity Depression Anxiety Back pain Hyperlipidemia Bipolar 1 disorder Diabetes Migraine Surgical History Surgical History History of foot surgery History of left knee surgery History of carpal tunnel release Hx of cholecystectomy H/O: hysterectomy Family History Family History Other Family history of malignant neoplasm Hypertension Social History Social History Smoking status: Never smoker Tobacco type: cigarettes Second hand tobacco smoke exposure: No Alcohol intake: never Drinks per week: 1 Alcohol use details: rare occasional use Substance use: never Substance use type: does not use Other substance usage details: medical marijuanna Do You Feel Safe in your Home?: Yes Lack of Transportation: No Lack of Food: Never True Current Housing: I Have Housing Concerned About Future Housing: No Difficulty Paying Gas/Electric Bills: Decline to Answer Difficulty Paying for Meds: Decline to Answer Currently Unemployed: No Education: High School Diploma/GED Living arrangements: alone Gender identity (if verbalized by the patient): Female Spiritual care concerns: No Exam Narrative: GENERAL APPEARANCE: WELL-DEVELOPED, WELL-NOURISHED SKIN: NORMAL COLOR CHEST AND RESPIRATORY: AIRWAY PATENT, NO RESPIRATORY DISTRESS, NO ACCESSORY MUSCLE USE HEART: REGULAR RATE/RHYTHM VASCULAR: NORMAL PERIPHERAL PULSES, NORMAL CAPILLARY REFILL. MUSCULOSKELETAL: RIGHT 5TH FINGER EXAMINATION SHOWED DORSAL ERYTHEMA, DIFFUSELY TENDER, WARM TO TOUCH, NO SKIN OPENINGS OR BLISTERS OR DISCHARGE SLIGHTLY SWOLLEN NEUROLOGIC: ALERT AND ORIENTED ?3, CERTIFIED DETENTION DEPUTY IS NORMAL TESTED, NO GROSS MOTOR DEFICIT Course Vital Signs Vital signs: Vital Signs Temperature 36.6 C 03/02/25 22:57 Pulse Rate 80 03/02/25 22:57 Respiratory Rate 03/02/25 22:57 Blood Pressure 146/78 H 03/02/25 22:57 Pulse Oximetry 98 03/02/25 22:57 Oxygen Delivery Room Air 03/02/25 22:57 Temperature 36.6 C 03/02/25 22:57 Pulse Rate 80 03/02/25 22:57 Respiratory Rate 03/02/25 22:57 Blood Pressure 146/78 H 03/02/25 22:57 Pulse Oximetry 98 03/02/25 22:57 Oxygen Delivery Room Air 03/02/25 22:57 MDM - Extremity Injury (Upper) MDM Narrative Medical decision making narrative: DIFFERENTIAL DIAGNOSIS INCLUDE CELLULITIS, ABSCESS VITAL SIGNS ARE STABLE PHYSICAL EXAMINATION CONSISTENT WITH BACTERIAL INFECTION BLOOD WORKUP TODAY INCLUDE CBC, CMP SHOWED PATIENT RECEIVED 1.5 G OF VANCOMYCIN IV PRIOR TO DISCHARGE DISCHARGED ON KEFLEX FOLLOW-UP WITH PATIENT HAD RECENT X-RAY OF THE FINGER WHICH SHOWED NO ACUTE OSSEOUS ABNORMALITY Differential Diagnosis Differential diagnosis: Likely other ( ABOVE) Medical Records Attestation: I reviewed the patient's medical records. Lab Data Attestation: I reviewed the patient's lab results. 03/02/25 22:58 03/02/25 22:58 Labs: Lab Results 03/02/25 Range/Units 22:58 WBC 6.3 (4.8-10.8) K/mm3 RBC 3.42 L (4.20-5.40) M/mm3 Hgb 10.4 L (12.0-15.0) g/dL Hct 31.2 L (35.0-49.0) % MCV 91.2 (78.0-102.0) fL MCH 30.4 (27.0-31.0) pg MCHC 33.3 (32-36) g/dL RDW 13.2 (11.6-14.4) % Plt Count 222 (150-420) K/mm3 MPV 10.4 (9.2-11.8) fl Immature Gran % (Auto) 1.0 H (0.0-0.0) % Neut % (Auto) 42.7 L (50.0-70.0) % Lymph % (Auto) 42.7 H (18.0-42.0) % Logan % (Auto) 10.4 (2.0-11.0) % Eos % (Auto) 2.1 (1.0-6.0) % Baso % (Auto) 1.1 H (0.0-1.0) % Lymph # (Auto) 2.67 (1.10-4.50) K/mm3 Logan # (Auto) 0.65 (0.10-0.90) K/mm3 Eos # (Auto) 0.13 (0.02-0.50) K/mm3 Baso # (Auto) 0.07 (0.00-0.10) K/mm3 Abs Immat Gran (auto) 0.06 H (0.00-0.00) K/mm3 Absolute Neuts (auto) 2.68 (1.70-7.20) K/mm3 Absolute Nucleated RBC 0.00 (0.00-0.00) K/mm3 Nucleated RBC % 0.0 (0-0.0) % Sodium Pending Potassium Pending Chloride Pending Carbon Dioxide Pending Anion Gap Pending BUN Pending Creatinine Pending Estim Creat Clear Calc Pending Estimated GFR Pending Glucose Pending Calculated Osmolality Pending Calcium Pending Total Bilirubin Pending AST Pending ALT Pending Alkaline Phosphatase Pending Total Protein Pending Albumin Pending Critical Care Time Critical Care Time Critical Care Time: No Discharge Plan Discharge Clinical Impression: Cellulitis of finger, right Patient Disposition: Home Condition: Stable Instructions: Antibiotic Form, Cellulitis (ED) Additional Instructions: RETURN IF SYMPTOMS ARE WORSENING , CALL DR RENE FOR APPOINTMENT, TAKE TYLENOL, IBUPROFEN NEEDED FOR ACHES AND PAIN, CONTINUE HOME MEDICATIONS. Patient Language: Kinyarwanda Prescriptions: New cephalexin 500 mg capsule 500 mg PO Q6H Qty: 28 0RF No Action Vraylar 1.5 mg capsule 3 mg PO DAILY methylphenidate HCl [Concerta] 36 mg tablet extended release 24hr 72 mg PO DAILY bupropion HCl 150 mg tablet extended release 24 hr 150 mg PO DAILY rosuvastatin 20 mg tablet 20 mg PO DAILY mupirocin [Centany] 2 % ointment 1 applic topical BID PRN (Reason: rash) Qty: 22 0RF Rx Instructions: Also place twice a day in the nostrils on either side for 5 days clindamycin HCl [Cleocin HCl] 300 mg capsule 300 mg PO TID 7 Days Qty: 21 0RF oxycodone 5 mg tablet 5 mg PO Q8H PRN cyclobenzaprine 10 mg tablet 10 mg PO ONCE cyanocobalamin (vitamin B-12) 1,000 mcg/mL solution 500 mcg subcut MONTHLY fluticasone propionate 50 mcg/actuation spray,suspension 2 spray NASAL BID Qty: 96 3RF Rx Instructions: administer into each nostril mupirocin 2 % ointment 1 applic topical BID Qty: 22 3RF Rx Instructions: Intranasal icosapent ethyl 1 gram capsule 2 g PO BID Mounjaro 7.5 mg/0.5 mL pen injector 7.5 mg subcut WEEKLY Qty: 2 0RF estradiol 2 mg tablet 1 tablet PO DAILY gabapentin 300 mg Capsule 300 mg PO TID magnesium oxide 400 mg magnesium Tablet 400 mg PO DAILY furosemide 20 mg tablet See Rx Instructions .ROUTE .COMPLEX Qty: 90 3RF Dose Instruction: TAKE 1 TABLET BY MOUTH EVERY MORNING NEEDED FOR PITTING EDEMA Rx Instructions: TAKE 1 TABLET BY MOUTH EVERY MORNING NEEDED FOR PITTING EDEMA montelukast 10 mg tablet 10 mg PO DAILY Qty: 90 3RF levothyroxine 50 mcg tablet 50 mcg PO DAILY Qty: 90 3RF Follow-up/Referrals: Vega Rene MD [Physician] - 03/04/25 Roland Rojas DO [Primary Care Provider] -
[2025-03-02 22:57] VITALS: BP 146/78; PULSE 80; RESP 14; TEMP 36.6; O2SAT 98
[2025-03-02 23:21] LABS: Basophils Absolute Auto 0.07 K/mm3 (0.00-0.10); Basophils Percent Auto 1.1 % (0.0-1.0); Eosinophils Absolute Auto 0.13 K/mm3 (0.02-0.50); Eosinophils Percent Auto 2.1 % (1.0-6.0); Hematocrit 31.2 % (35.0-49.0); Hemoglobin 10.4 g/dL (12.0-15.0); Immature Granulocyte Absolute 0.06 K/mm3 (0.00-0.00); Lymphocytes Absolute Auto 2.67 K/mm3 (1.10-4.50); Lymphocytes Percent Auto 42.7 % (18.0-42.0); Mean Corpuscular HGB Conc 33.3 g/dL (32-36); Mean Corpuscular Hemoglobin 30.4 pg (27.0-31.0); Mean Corpuscular Volume 91.2 fL (78.0-102.0); Mean Platelet Volume 10.4 fl (9.2-11.8); Monocytes Absolute Auto 0.65 K/mm3 (0.10-0.90); Monocytes Percent Auto 10.4 % (2.0-11.0); Neutrophils Absolute Auto 2.68 K/mm3 (1.70-7.20); Neutrophils Percent Auto 42.7 % (50.0-70.0); Platelet Count Result 222 K/mm3 (150-420); Red Blood Count 3.42 M/mm3 (4.20-5.40); Red Cell Distribution Width 13.2 % (11.6-14.4); White Blood Count 6.3 K/mm3 (4.8-10.8)
[2025-03-02 23:29] LABS: Albumin Level 3.5 g/dL (3.5-5.1); Alkaline Phosphatase 59 U/L (38-126); Anion Gap 3 mmol/L (4-12); Bilirubin,Total 0.3 mg/dL (0.2-1.3); Blood Urea Nitrogen 13 mg/dL (7-17); Calcium 8.7 mg/dL (8.4-10.2); Carbon Dioxide 27 mmol/L (22-30); Chloride 111 mmol/L (98-107); Estimated CRCL calculation 66 ml/min; Estimated Glomerular Filt Rate 55; Glucose 152 mg/dL (65-110); Osmolality Calculated 295 mOsm/kg (285-295); Potassium 3.5 mmol/L (3.4-5.0); Sodium 141 mmol/L (137-145)
[2025-03-02 23:30] LABS: Alanine Aminotransferase 17 U/L (6-35); Aspartate Amino Transferase 28 U/L (14-36)
[2025-03-02] MEDS: VANCOMYCIN 1,500 MG/NS 500 ML 1,500 MG/500 ML BAG 333.33 MG IVPB (23:36)
[2025-03-03 01:25] VITALS: BP 135/75; PULSE 78; RESP 16; TEMP 36.8; O2SAT 99
== END 2025-03-03 01:25 | disposition home or self-care (01) ==
PROVIDERS: Emergency Provider Emergency Medicine; PCP Family Medicine
DX: L03.011 Cellulitis of right finger (principal); I10 Essential (primary) hypertension; E11.9 Type 2 diabetes mellitus without complications; E78.5 Hyperlipidemia, unspecified
CPT/HCPCS: 36415; 80053; 85025; 96365; 99284; J3370

== ENCOUNTER 2025-03-12 16:30 | Outpatient (CLI) | payer OTHER, MEDICAID, SELFPAY ==
--- NOTE | ~2025-03-12 | XR_ITS ---
XR hand RT min 3V Ordering provider: Vega Mohan MD History: . M79.644 - Pain in right finger(s) . Comparison: None. FINDINGS: BONES: Minimal subluxation the distal interphalangeal joint of the little finger otherwise, No acute fracture or dislocation. JOINT SPACES: Normal. SOFT TISSUES: Normal. IMPRESSION: No acute osseous abnormality right hand. Reviewed, dictated and finalized at location A.
== END 2025-03-12 16:31 | disposition home or self-care (01) ==
PROVIDERS: PCP Family Medicine; Visit Provider Plastic Surgery
DX: M79.644 Pain in right finger(s) (principal)
CPT/HCPCS: 73130

== ENCOUNTER 2025-05-21 13:58 | Outpatient (CLI) | payer OTHER, MEDICAID, SELFPAY ==
--- NOTE | ~2025-05-21 | XR_ITS ---
Clinical history:Back pain. EXAM:X-ray cervical spine 2-3 views TECHNIQUE:3 images of the cervical spine were obtained. Comparisons:02/12/2025 FINDINGS: Straightening of the normal cervical lordosis, unchanged. Anterior spinal fusion of C5, C6 and C7 without radiographic evidence for loosening of the hardware. Interbody fusion devices at the C5-C6 and C6-C7 levels, unchanged. Moderate joint space narrowing at the C4-C5 level with a large anterior spur similar to the prior study. Minimal grade 1 retrolisthesis of C4 on C5. Minimal grade 1 retrolisthesis of C2 on C3. Multilevel degenerative change in the cervical facet joints and uncovertebral joints. IMPRESSION: 1. Straightening of the normal cervical lordosis, unchanged. 2. Anterior spinal fusion of C5, C6 and C7 without radiographic evidence for loosening of the hardware. 3. Moderate joint space narrowing at the C4-C5 level with a large anterior spur similar to the prior study. If symptoms persist or worsen, consider an MRI of the cervical spine for further assessment. Reviewed, dictated and finalized at location Q. IMPRESSION: 1. Straightening of the normal cervical lordosis, unchanged. 2. Anterior spinal fusion of C5, C6 and C7 without radiographic evidence for lo osening of the hardware. 3. Moderate joint space narrowing at the C4-C5 level with a large anterior spur similar to the prior study. If symptoms persist or worsen, consider an MRI of the cervical spine for furthe r assessment.
--- NOTE | ~2025-05-21 | XR_ITS ---
EXAMINATION: XR lumbar spine 2-3V DATE: 05/21/2025 14:33 INDICATION: Back pain. TECHNIQUE: 3 images of the lumbar spine were obtained. COMPARISON: 02/12/2025 FINDINGS: There is bowel gas and stool projecting over the pelvis which limits evaluation. Generator with leads project over the pelvis. Posterior spinal fusion of L4, L5 and S1 transpedicular screws and vertical rods. No radiographic evidence for loosening of the hardware. Interbody fusion devices at the L4-5 and L5-S1 levels, unchanged. Grade 1 retrolisthesis of L3 on L4. Moderate joint space narrowing at the L3-L4 level. Grossly stable degenerative change in the facet joints throughout the lumbar spine. IMPRESSION: 1. Posterior spinal fusion of L4, L5 and S1. No radiographic evidence for loosening of the hardware. 2. Mild to moderate degenerative change in the lumbar spine as detailed above. 3. Grade 1 retrolisthesis of L3 on L4. If symptoms persist or worsen, consider an MRI of the lumbar spine for further assessment. Reviewed, dictated and finalized at location Q. IMPRESSION: 1. Posterior spinal fusion of L4, L5 and S1. No radiographic evidence for loose parris of the hardware. 2. Mild to moderate degenerative change in the lumbar spine as detailed above. 3. Grade 1 retrolisthesis of L3 on L4. If symptoms persist or worsen, consider an MRI of the lumbar spine for further assessment.
[2025-05-21 14:12] LABS: Hematocrit 42.4 % (35.0-49.0); Hemoglobin 14.2 g/dL (12.0-15.0); Mean Corpuscular HGB Conc 33.5 g/dL (32-36); Mean Corpuscular Hemoglobin 29.8 pg (27.0-31.0); Mean Corpuscular Volume 88.9 fL (78.0-102.0); Platelet Count Result 231 K/mm3 (150-420); Red Blood Count 4.77 M/mm3 (4.20-5.40); White Blood Count 6.2 K/mm3 (4.8-10.8)
--- OUTSIDE RECORDS SUMMARY | 2025-05-21 14:13 | XMS_ITS | Encounter Summary ---
Author Organization [facility] Address [address] [place] [address] Care Team Providers Care Pari Mutual Ticket Checker Name Role Phone Radha Kaminski MYRON-CIAIO LUMITE INJECTOR Primary Care Provider [phone] Harmony Mcrae MD Unavailable Encounter Details Date Type Department Care Team (Late st Contact Info) Description 06/20/2023 Lab Requisition [facility] - DermPath Lab [address] [facility] [place] [address] Andrzej Aguilar MD [address] [place] [address] Social History Tobacco Use Types Packs/Day Years Used Date Smoking Tobacco: Never Smokeless Tobacco: Never Alcohol Use Standard Drinks/Week Comments Never 0 (1 standard drink = 0.6 oz pur e alcohol) Comments Unknown Sex and Gender Information Value Date Recorded Sex Assigned at Not on file Legal Sex Female 5:06 PM PRODUCE WEIGHER Gender Identity Not on file Sexual Orientation Not on file documented as of this encounter Plan of Treatment Not on file documented as of this encounter Procedures Procedure Name Priority Date/Time Associated Diagnosis Comments DERMATOPATHOLOGY Routine 06/20/2023 12:0 0 AM CDT documented in this encounter Results * DERMATOPATHOLOGY (06/20/2023 12:00 AM CDT) Case Report Dermatopathology Report Case: [id number] Authorizing Provider: Andrzej Aguilar MD Collected: 06/20/2023 12:00 AM Ordering Location: [facility] DermPath Lab Received: 06/21/2023 06:10 [...] characteristic determined by the Dermatopathology Laboratory at [facility], directed by Dr. Jean-Pierre Miller. These tests need not be, and therefore are not, approved by the [place] Food and Drug Administration. The tests are used for clinical purposes. Billing Codes Specimen Charges Stain Charges 11678 1 99694 1 4:35 PM CDT DERMATOPATHOLOGY LABORATORY Embedded Images 4:35 PM CDT DERMATOPATHOLOGY LABORATORY Pathology/Cytolog y TISSUE SPECIMEN FROM SKIN / Unknown 06/20/2023 06/21/2023 6:10 AM CDT us Andrzej Aguilar MD LAB - PATHOLOGY/CYTOLOGY ORDERAB LES Final Result DERMATOPATHOLOGY LABORATORY [facility] - Department of Dermatology [facility] Medicine [address] [facility] 3rd Floor [address] [phone] documented in this encounter Visit Diagnoses Not on filedocumented in this encounter Care Teams Pari Mutual Ticket Checker Relationship Specialty Start Date End Date Radha Kaminski APRN-CIAIO LUMITE INJECTOR [address] [facility] [address] [place] [phone] PCP - General Nurse Practitioner Family 12/03/21 [place] [id number] [place] [address] [place] [phone] Rheumatology 12/03/21 documented as of this encounter
--- OUTSIDE RECORDS SUMMARY | 2025-05-21 14:13 | XMS_ITS | Clinical Summary ---
Author Organization [facility] Address [address] [place] [address] Phone Care Team Providers Care Poolroom Table Attendant Name Role Phone Radha Kaminski Primary Care Provider [phone] Allergies Active Allergy Reactions Criticality Noted Date Comments Prochlorperazine Other (see comments),Shortness of breath High 11/26/2016 Lockjaw Lockjaw Medications aspirin (ST DUDLEY) 81 MG EC tablet Take 81 mg by mouth daily Active buPROPion XL (WELLBUTRIN XL) 150 MG 24 hr tablet 2 Active Cholecalciferol (Vitamin D3) 1.25 MG (77383 UT) capsule Twice a week 2 Active [...] Due Date Last Done Comments Influenza Vaccine (#1) [address] [place] [address] Care Teams Poolroom Table Attendant Relationship Specialty Start Date End Date Radha Kaminski [facility] [place] [id number] PCP - General Family Medicine 06/21/22
--- OUTSIDE RECORDS SUMMARY | 2025-05-21 14:13 | XMS_ITS | Clinical Summary ---
Author Organization [facility] [address] Address [address] [place] [address] Care Team Providers Care Transmission Maintenance Supervisor Name Role Phone Roland Rojas DO Primary [...] mg total) by mouth daily 4 Active magnesium oxide (MAG-OX) 400 mg (241.3 mg elemental magnesium) tabletIndicatio ns:hypomagnesem ia Take 1 tablet (400 mg total) by mouth daily 90 tablet 5 Active rosuvastatin (CRESTOR) 40 mg tablet TAKE 1 TABLET BY MOUTH EVERY DAY AT NIGHT 90 tablet 3 5 Active Active Problems Problem Noted Date Diagnosed Date Pain in joint involving ankle and foot 4 Chronic pain syndrome 06/22/2023 Postlaminectomy syndrome 05/17/2023 Cervical radiculopathy 05/17/2023 Radiculopathy, lumbosacral region 05/17/2023 Coronary artery disease invo lving yurok coronary artery of yurok heart without angina pectoris 04/19/2023 Essential hypertension [...] (01/24/2024): Added automatically from request for surgery [id number] Nonspecific abnormal results of function study o [...] on file Legal Sex Female 7:45 PM SCUBA DIVING INSTRUCTOR Gender Identity Not on file Sexual Orientation Not on file Obstetrics History Last Filed Vital Signs Vital Sign Reading Time Taken Comments Blood Pressure 118/82 08/23/2024 2:00 PM SCUBA DIVING INSTRUCTOR Pulse 82 08/23/2024 2:00 PM SCUBA DIVING INSTRUCTOR Temperature 36.5 C (97.7 F) 02/18/2022 2:55 PM CDT Respiratory Rate 17 05/17/2023 1:17 PM CDT Oxygen Saturation 99% 08/23/2024 2:00 PM SCUBA DIVING INSTRUCTOR Inhaled Oxygen Concentration - - Weight 107 kg (236 lb) 08/23/2024 2:00 PM SCUBA DIVING INSTRUCTOR Height 170.2 cm (5' 7) 08/23/2024 2:00 PM SCUBA DIVING INSTRUCTOR Body Mass Index 36.96 08/23/2024 2:00 PM SCUBA DIVING INSTRUCTOR Plan of Treatment Health Maintenance Due Date [...] 2018 eGFR 02/18/2023 02/18/2022 Influenza Vaccine (#1) 2025 Lipid Panel 08/23/2025 08/23/2024 Procedures Procedure Name Priority Date/Time Associated Diagnosis Comments POCT LIPID PANEL Routine 08/23/2024 2:54 PM SCUBA DIVING INSTRUCTOR Coronary artery disease involving yurok coronary artery of yurok heart without angina pectoris Hyperlipidemia associated with type 2 diabetes mellitus (HCC) EGFR STAT 02/18/2022 1:07 PM CDT from Last 3 Months or Most Recently Relevant to Health Maintenance Results * POCT lipid panel (08/23/2024 2:54 PM SCUBA DIVING INSTRUCTOR) Cholesterol, POC 234 mg/dL HDL, POC 48 mg/dL Triglycerides, POC 305 mg/dL LDL Cholesterol POC 125 mg/dL Chol/HDL Ratio, POC 4.9 Non-HDL Cholesterol, POC 186 mg/dL Cholesterol Total, POC 234 mg/dL Capillary blood 08/23/2024 2 :54 PM SCUBA DIVING INSTRUCTOR Rhett Ramírez MD POINT OF CARE TEST [...] ORDERABLES Final Re sult [facility] [address] [facility] [place] [address] from Last 3 Months or Most Recently Relevant to Health Maintenance Insurance CIGNA OPEN ACCESS CIGNA OPEN ACCESS CIGNA OPEN ACCESS FORMERLY [facility] OPEN ACCESS Care Teams Transmission Maintenance Supervisor Relationship Specialty Start Date End Date Roland Rojas DO [address] [place] [address] PCP - General Family Medicine 01/24/24
--- OUTSIDE RECORDS SUMMARY | 2025-05-21 14:13 | XMS_ITS | Clinical Summary ---
Author Organization [facility] Address [address] [facility] [place] [address] Care Team Providers Care Canal Structure Operator Name Role Phone Radha Kaminski MYRON-BARREL ROLLER OPERATOR Primary Care Provider [phone] Harmony Mcrae MD Unavailable Source Comments [facility],non-owned Affiliates and Associated Physician Practices is amultiple site organization consisting of ambulatory clinics and hospital sitesin [place], [place], [place] and [place]. This disclosure is being madepursuant to the Care Everywhere program and may not contain all information available regarding this patient. Last updated 18.[facility] Allergies Active Allergy Reactions Criticality Noted Date [...] fluticasone propionate (FLONASE) 50 MCG/ACT nasal spray Hanna 2 (two) sprays into each nostril once daily Active blood glucose (DealdriveTOUCH ULTRA) test strip USE TO TEST THREE TIMES A DAY 1 Active estradiol (ESTRACE) 2 MG tablet Take 1 (one) tablet by mouth every 24 hours Active Multiple Vitamins-Salt Machine Operator als (MULTI VITAMIN/MINERA LS) TABS Take 1 (one) tablet by mouth once daily Active [place]-3 Fatty Acids (FISH OIL) 1000 MG capsule Take 1 (one) capsule by mouth once daily Active Cholecalcifero l 1.25 MG (87051 UT) Take 1 capsule by mouth every [...] naloxone HCl (Narcan) 4 MG/0.1ML nasal spray Hanna 1 (one) spray into the nose Active [...] day by topical route. Active HYDROcodone-ac etaminophen ([place]) 5-325 MG tablet Take 1 (one) tablet by mouth two times daily at 4am and 4pm Active indomethacin (Indocin) 50 MG capsule TAKE 1 CAPSULE BY MOUTH THREE TIMES A DAY ADMINISTER WITH FOOD OR MILK Active mupirocin (Bactroban) 2 % ointment 1 APPLIC TOPICALLY TWICE A DAY Active nystatin (Mycostatin) 991912 UNIT/ML suspension Take 5 mL 4 times [...] on file Legal Sex Female 5:06 PM CAN TENDER Gender Identity Not on file Sexual Orientation Not on file Last Filed Vital Signs Vital Sign Reading Time Taken Comments Blood Pressure 122/68 10/06/2023 2:03 PM CAN TENDER Pulse 79 10/06/2023 2:03 PM CAN TENDER Temperature 36.6 C (97.9 F) 01/07/2022 2:03 PM CDT Respiratory Rate 16 08/02/2023 2:35 PM CAN TENDER Oxygen Saturation 97% 08/02/2023 2:35 PM CAN TENDER Inhaled Oxygen Concentration - - Weight 93.9 kg (207 lb) 10/06/2023 2:03 PM CAN TENDER Height 170.2 cm (5' 7) 10/06/2023 2:03 PM CAN TENDER Body Mass Index 32.42 10/06/2023 2:03 PM CAN TENDER Plan of Treatment Health Maintenance Due Date [...] season) 2024 DEPRESSION SCREENING 09/19/2024 INFLUENZA VACCINE (#1) 2025 SCREENING FOR DIABETES 09/09/2026 3, 08/02/2023, [...] COMPREHENSIVE METABOLIC PANEL Routine 08/02/2023 3:29 PM CAN TENDER Arthralgia, unspecified joint HEPATITIS SCREEN ACUTE ([facility]) Routine 08/02/2023 3:28 PM CAN TENDER Arthralgia, unspecified joint from Last 3 Months or Most Recently Relevant to Health Maintenance Results * (ABNORMAL) COMPREHENSIVE METABOLIC PANEL (08/02/2023 3:29 PM CAN TENDER) Glucose 95 70 - 99 mg/dL [facility] [...] BLOOD SPECIMEN / Unknown 08/02/2023 3:29 PM CAN TENDER 08/02/2023 Narrative Resulting Agency Comment Lab Testing performed at: [facility] [place] [id number] [id number] Harmony Mcrae MD LAB - CHEMISTRY ORDERABLES Final Result [facility] INSURANCE BILL [address] [place] [address] * HEPATITIS SCREEN ACUTE ([facility]) (08/02/2023 3:28 PM CAN TENDER) Hepatitis A Virus Antibody IgM Negative Negative [facility] INSURANCE BILL Hepatitis B Virus Surface Antigen Negative Negative [facility] INSURANCE BILL Hepatitis B Core Virus Antibody IgM Negative Negative [facility] INSURANCE BILL Hepatitis C Antibody Non Reactive Non Reactive [facility] INSURANCE BILL Blood BLOOD SPECIMEN / Unknown 08/02/2023 3:28 PM CAN TENDER 08/02/2023 Narrative Resulting Agency Comment [facility] [address] [facility] [id number] Harmony Mcrae MD LAB - CHEMISTRY ORDERABLES Final Result [facility] INSURANCE BILL [address] [place] [address] from Last 3 Months or Most Recently Relevant to Health Maintenance Insurance Care Teams Canal Structure Operator Relationship Specialty Start Date End Date Radha Kaminski APRN-SCOTT 4 [facility] [address] [place] [phone] PCP - General Nurse Practitioner Family 12/03/21 [place] [address] [place] [address] [place] [phone] Rheumatology 12/03/21
[2025-05-21 14:45] LABS: Alanine Aminotransferase 22 U/L (6-35); Albumin Level 4.3 g/dL (3.5-5.1); Alkaline Phosphatase 71 U/L (38-126); Anion Gap 6 mmol/L (4-12); Aspartate Amino Transferase 32 U/L (14-36); Bilirubin,Total 0.5 mg/dL (0.2-1.3); Blood Urea Nitrogen 10 mg/dL (7-17); Calcium 9.5 mg/dL (8.4-10.2); Carbon Dioxide 27 mmol/L (22-30); Chloride 105 mmol/L (98-107); Estimated Glomerular Filt Rate 57; Glucose 130 mg/dL (65-110); Osmolality Calculated 287 mOsm/kg (285-295); Potassium 4.1 mmol/L (3.4-5.0); Sodium 138 mmol/L (137-145); Total Protein 6.7 g/dL (6.3-8.2)
== END 2025-05-21 13:59 | disposition home or self-care (01) ==
PROVIDERS: PCP Family Medicine; Visit Provider Pain Medicine Interventional Pain Medicine
DX: M54.12 Radiculopathy, cervical region (principal); M54.16 Radiculopathy, lumbar region; Z98.1 Arthrodesis status; M47.812 Spondylosis without myelopathy or radiculopathy, cervical region; M25.78 Osteophyte, vertebrae; M51.362 Other intervertebral disc degeneration, lumbar region with discogenic back pain and lower extremity pain; M43.16 Spondylolisthesis, lumbar region
CPT/HCPCS: 36415; 72040; 72100; 80053; 85027

== ENCOUNTER 2025-07-15 11:05 | Emergency (ER) | payer OTHER, MEDICAID, SELFPAY ==
--- OUTSIDE RECORDS SUMMARY | 2024-11-22 08:15 | XMS_ITS ---
Author Organization [facility] [employer] [facility] Address [address] [place] [address] [address] Care Team Providers Care Manager Neonatal Name Role Phone Roland Rojas DO Primary Care Provider Unavail Julian Mcconnell Unavailable [phone] REASON FOR VISIT Pt r/s and no one documented it or removed this encounter Social History Sex Assigned At : Social History Observation Description Sex Assigned At Female Encounters Encounter Location Date Provider Diagnosis [facility] [employer] [address] [address] 11/22/2024 Julian Cummings Plan Of Treatment Next Appt Details Provider Name:Julian shaw, 08/05/2025 01:30:00 PM, [address], [facility] [address], [address], Progress Notes * IZABELA PARRA GDOB:1969 (55 yo F)Acc No.[id number]:11/22/2024 Patient: Bianka IZABELA FRANCES Provider: LEOLA IQBAL :1970 A ge:54 Y S ex:Female Date:11/22/2024 Address:[address] [place], [place] [id number] Pcp:Roland Rojas DO Subjective: * Chief Complaints: * P t r/s and no one documented it or removed this encounter Billing Information: * Procedure Codes: * Electronic signature of LEOLA Rosas on 07/15/2025 at 12:39 PM CDT Sign off status: Pending * Provider: Ryan CUMMINGS, PMHNP Date: 0 11/22/2024 Generated for Dilip brown/Elen/Rachel on: 1 12:39 PM CDT
--- NOTE | ~2025-07-15 | XR_ITS ---
EXAMINATION: XR knee RT min 4V DATE: 07/15/2025 11:18 INDICATION: Right knee pain TECHNIQUE: Anteroposterior, 2 oblique and crosstable lateral views of the right knee were obtained COMPARISON: None. FINDINGS: Alignment is normal. No fracture. Joint spaces appear relatively preserved on nonweightbearing imaging. Moderate sized enthesophytes at the proximal distal poles of the patella. No joint effusion/layering lipohemarthrosis. Soft tissues are unremarkable. IMPRESSION: 1. No right knee joint effusion or acute osseous abnormality. Reviewed, dictated and finalized at location A.
--- NOTE | ~2025-07-15 | US_ITS ---
EXAMINATION:US venous doppler LE RT INDICATION:DVT TECHNIQUE: Multiple grayscale, color flow and Doppler images of the right lower extremity deep venous systems were obtained and reviewed. COMPARISON:None available FINDINGS: The right common femoral, superficial femoral and popliteal veins demonstrate normal respiratory variation, augmentation and compressibility. Color flow is also seen within the posterior tibial, peroneal, greater saphenous and profunda veins. IMPRESSION: 1: No right lower extremity deep venous thrombosis. Reviewed, dictated and finalized at location Q.
[2025-07-15 11:10] VITALS: BP 131/70; PULSE 91; RESP 18; TEMP 36.6; O2SAT 99
--- NOTE | 2025-07-15 11:11 | ED.LOWEXIN ---
HPI - Extremity Injury (Lower) General Chief Complaint: Extremity Problem,Nontraumatic Stated Complaint: R. Knee Pain Time Seen by Provider: 07/15/25 11:11 Source: patient Mode of arrival: ambulatory Limitations: no limitations History of Present Illness HPI Narrative: Patient is a 55-year-old female for a right knee pain upon wakening this morning. Patient said that she awoke this morning with right knee pain that is worse with palpation or movement of the right knee. There is pain down the right lower extremity as well. MD complaint: other (Patient did not injure herself to cause this pain) Onset (ago): day(s) (1) Type of Injury: blunt Place: home Severity: moderate Severity scale (1-10): 7 Relieving factors: other (None) Exacerbating factors: weight bearing, movement and palpation Context: other (Patient just awoke this morning with pain of the right knee without any injury) Associated symptoms: able to partially bear weight Other symptoms: none Treatments prior to arrival: cold therapy Related Data Home Medications ?Medication ?Instructions ?Recorded ?Confirmed ?Last Taken ?Type gabapentin 300 mg capsule 300 mg PO TID 02/23/22 04/02/25 03/04/22 History magnesium oxide 400 mg PO DAILY 02/23/22 04/02/25 03/01/22 History bupropion HCl 150 mg 24 hr tablet, 150 mg PO DAILY 07/22/23 04/02/25 Unknown History extended release methylphenidate HCl 36 mg 72 mg PO DAILY 07/22/23 04/02/25 Unknown History tablet,extended release 24 hr (Concerta) rosuvastatin 20 mg tablet 20 mg PO DAILY 07/22/23 04/02/25 Unknown History icosapent ethyl 1 gram capsule 2 g PO BID 12/02/23 04/02/25 Unknown History cyanocobalamin (vitamin B-12) 500 mcg subcut MONTHLY 02/13/25 04/02/25 Unknown History 1,000 mcg/mL injection solution oxycodone 5 mg tablet 5 mg PO Q8H PRN 02/13/25 04/02/25 Unknown History cariprazine 3 mg capsule (Vraylar) mg 07/15/25 Unknown History conjugated estrogens 1.25 mg mg 07/15/25 Unknown History tablet (Premarin) evolocumab 140 mg/mL subcutaneous mg subcut 07/15/25 Unknown History syringe (Repatha Syringe) indomethacin 50 mg capsule mg 07/15/25 Unknown History lamotrigine 100 mg tablet mg 07/15/25 Unknown History minoxidil 2.5 mg tablet mg 07/15/25 Unknown History prednisone 5 mg tablet mg 07/15/25 Unknown History rimegepant 75 mg disintegrating mg 07/15/25 Unknown History tablet (Nurtec ODT) rosuvastatin 40 mg tablet mg 07/15/25 Unknown History topiramate 25 mg tablet mg 07/15/25 Unknown History Allergies Allergy/AdvReac Type Severity Reaction Status Date / Time prochlorperazine Allergy Severe Other Verified 07/15/25 11:06 ciprofloxacin Allergy Mild Rash Verified 07/15/25 11:06 Review of Systems Review of Systems: All systems reviewed & are unremarkable except as noted in HPI and below Constitutional: Constitutional: Reports no additional constitutional complaints Eyes: Eyes: Reports no additional eye complaints ENT: Reports system reviewed and no additional complaints, except as documented Cardiovascular: Cardiovascular: Reports no additional cardiovascular complaints Respiratory: Respiratory: Reports no additional respiratory complaints Gastrointestinal: Gastrointestinal: Reports no additional gastrointestinal complaints Genitourinary: Genitourinary: Reports no additional female genitourinary complaints Musculoskeletal: Musculoskeletal: Reports no additional musculoskeletal complaints Integumentary/Breasts: Skin/Breast: Reports system reviewed and no additional complaints, except as docu Neurologic: Reports system reviewed and no additional complaints, except as documented Psychiatric: Psychiatric: Reports no additional psychiatric complaints Endocrine: Endocrine: Reports no additional endocrine complaints Hematologic/Lymphatic: Hematologic/Lymphatic: Reports no additional hematologic/lymphatic complaints Allergic/Immunologic: Allergic/Immunologic: Reports no additional allergic/immunologic complaints PMFSH Past Medical History Medical History Excessive daytime sleepiness Chronic mixed headache syndrome Obesity Depression Anxiety Back pain Hyperlipidemia Bipolar 1 disorder Diabetes Migraine Surgical History Surgical History History of foot surgery History of left knee surgery History of carpal tunnel release Hx of cholecystectomy H/O: hysterectomy Family History Family History Other Family history of malignant neoplasm Hypertension Social History Social History Smoking status: Never smoker Tobacco type: cigarettes Second hand tobacco smoke exposure: No Alcohol intake: never Drinks per week: 1 Alcohol use details: rare occasional use Substance use: never Substance use type: does not use Other substance usage details: medical marijuanna Do You Feel Safe in your Home?: Yes Lack of Transportation: No Lack of Food: Never True Current Housing: I Have Housing Concerned About Future Housing: No Difficulty Paying Gas/Electric Bills: Decline to Answer Difficulty Paying for Meds: Decline to Answer Currently Unemployed: No Education: High School Diploma/GED Living arrangements: alone Gender identity (if verbalized by the patient): Female Spiritual care concerns: No Exam Const: General: healthy appearing Nutritional Appearance: well nourished Orientation/consciousness: patient oriented x3 HENMT: Head: normal to inspection Ears: external ears normal Face/Nose/Sinus: Normal external nose present Eyes: Conjunctivae: conjunctivae normal Pupils: Equal, round and reactive pupils present EOM: EOMs intact bilaterally Neck: Neck: normal visual inspection, no lymphadenopathy and no meningeal signs Chest: Chest palpation & inspection: normal inspection of the chest Resp: Effort & Inspection: normal respiratory effort and not labored Auscultation: clear to auscultation bilaterally and no crackles Cardio: Rate: regular rate Rhythm: regular rhythm Heart sounds: no murmurs GI: Inspection: non-distended GI Palp: Yes Soft to palpation and No Tenderness to palpation present (GI) Auscultation: normal bowel sounds : General: Yes bladder normal to palpation Back/Spine/Pelvis: Back: no CVA tenderness Skin: General skin exam: normal color Rashes: no rashes Wounds: no wounds Neuro: General: patient oriented x3, moves all extremities and no meningeal signs Extrem: General: normal to inspection, no clubbing, cyanosis or edema and no pedal edema Other: Right knee is minimally swollen without erythema or ecchymosis and is tender to palpate in all directions; any maneuvers to make range of motion causes pain posteriorly more so than anteriorly Psych: Mental Status: mental status grossly normal Affect: normal affect Attitude: cooperative Course Vital Signs Vital signs: Vital Signs Temperature 36.6 C 07/15/25 11:10 Pulse Rate 91 07/15/25 11:10 Respiratory Rate 18 07/15/25 11:10 Blood Pressure 131/70 07/15/25 11:10 Pulse Oximetry 99 07/15/25 11:10 Oxygen Delivery Room Air 07/15/25 11:10 Temperature 36.7 C 07/15/25 12:28 Pulse Rate 72 07/15/25 12:28 Respiratory Rate 16 07/15/25 12:28 Blood Pressure 122/53 L 07/15/25 12:28 Pulse Oximetry 100 07/15/25 12:28 Oxygen Delivery Room Air 07/15/25 12:28 MDM - Extremity Injury (Lower) MDM Narrative Medical decision making narrative: Patient is a 55-year-old female with a right knee pain without injury today. We will get an ultrasound to rule out DVT. X-ray. MRI suggested. Imaging Data Attestation: I personally reviewed and interpreted this imaging study as follows: Radiologist's impression: Venous ultrasound right lower extremity was negative for DVT X-ray right knee was negative for acute process to include fluid or osseous changes Discharge Plan Discharge Clinical Impression: Derangement of knee, right Patient Disposition: Home Condition: Stable Instructions: Knee Sprain (ED), Knee Pain (ED) Additional Instructions: Please follow-up with primary doctor in the next week. Please see a orthopedic surgeon to further evaluate and discuss options for recurrent knee fluid. There is no fluid seen today on your right knee. This may increase in size and then fluid will be noted but at this time there is no fluid. MRI suggested when possible for further evaluation of your right knee. Patient Language: Spanish Prescriptions: No Action prednisone 5 mg tablet topiramate 25 mg tablet minoxidil 2.5 mg tablet indomethacin 50 mg capsule Premarin 1.25 mg tablet lamotrigine 100 mg tablet rosuvastatin 40 mg tablet Repatha Syringe 140 mg/mL syringe SUBCUT Vraylar 3 mg capsule Nurtec ODT 75 mg tablet,disintegrating methylphenidate HCl [Concerta] 36 mg tablet extended release 24hr 72 mg PO DAILY bupropion HCl 150 mg tablet extended release 24 hr 150 mg PO DAILY rosuvastatin 20 mg tablet 20 mg PO DAILY mupirocin [Centany] 2 % ointment 1 applic topical BID PRN (Reason: rash) Qty: 22 0RF Rx Instructions: Also place twice a day in the nostrils on either side for 5 days oxycodone 5 mg tablet 5 mg PO Q8H PRN cyanocobalamin (vitamin B-12) 1,000 mcg/mL solution 500 mcg subcut MONTHLY mupirocin 2 % ointment 1 applic topical BID Qty: 22 3RF Rx Instructions: Intranasal icosapent ethyl 1 gram capsule 2 g PO BID gabapentin 300 mg Capsule 300 mg PO TID magnesium oxide 400 mg magnesium Tablet 400 mg PO DAILY montelukast 10 mg tablet 10 mg PO DAILY Qty: 90 3RF levothyroxine 50 mcg tablet 50 mcg PO DAILY Qty: 90 3RF Mounjaro 7.5 mg/0.5 mL pen injector See Rx Instructions .ROUTE .COMPLEX Qty: 6 1RF Dose Instruction: INJECT 7.5 MG (0.5 ML) SUBCUTANEOUSLY WEEKLY Rx Instructions: INJECT 7.5 MG (0.5 ML) SUBCUTANEOUSLY WEEKLY- 3 month supply fluticasone propionate 50 mcg/actuation spray,suspension 2 spray NASAL BID Qty: 96 3RF Rx Instructions: administer into each nostril Follow-up/Referrals: Roland Rojas DO [Primary Care Provider, [facility]] Time of Disposition: 12:22
--- NOTE | 2025-07-15 11:45 | PC.NURSE ---
Ultrasound at patient bedside
[2025-07-15 12:28] VITALS: BP 122/53; PULSE 72; RESP 16; TEMP 36.7; O2SAT 100
--- OUTSIDE RECORDS SUMMARY | 2025-07-15 12:39 | XMS_ITS | Patient Health Record ---
Author Organization [facility] As [employer] Address [address] [facility] [address] [place] [address] Care Team Providers Care Workforce Consultant Name Role Phone Roland Rojas DO Primary Care Provider Unavail able Julian Cummings Unavailable [phone] Allergies Allergen (clinical drug ingredient) Drug/Non Drug Allergy documented on EMR Reaction Allergy Type Onset Date Status Compazine Unknown Drug Allergy 12/21/2023 Active Reason For Referral No Information Medications Medication SIG (Take, Route, Frequency, Duration) Notes Start Date End Date Status buPROPion HCl ER (XL) 150 MG Tablet Extended Release 24 Hour 1 tablet in the morning Oral Once a day; Duration: 90 days Active lamoTRIgine 100 MG Tablet 1 tablet in the morning Orally Once a day; Duration: 90 days Active Vraylar 3 mg Capsule 1 capsule Oral once daily; Duration: 90 days Active Methylphenidate HCl ER 36 MG Tablet Extended Release 2 tablet every morning Oral once a day; Duration: 30 days 07/10/2025 Active Montelukast Sodium 10 MG Tablet Oral 12/21/2023 Active ICOSAPENT ETHYL 1 GRAM CAPSULE *Reorder from [employer] for eRx and Interaction Alerts* 12/21/2023 Active Rosuvastatin Calcium 40 MG Tablet Oral 12/21/2023 Active oxyCODONE HCl 5 MG Tablet Oral 12/21/2023 Active Gabapentin 300 MG Capsule Oral 12/21/2023 Active Magnesium Oxide (Elemental) 400 MG Tablet Oral *Reorder from [employer] for eRx and Interaction Alerts* 12/21/2023 Active Glimepiride 2 MG Tablet Oral 12/21/2023 Active Mounjaro 5 MG/0.5ML Solution Auto-injector Subcutaneous; Duration: 28 Days Active tiZANidine HCl 4 MG Tablet Oral 12/21/2023 Active OneTouch Ultra Strip In Vitro 12/21/2023 Active Estradiol 2 MG Tablet Oral 12/21/2023 Active Social History Sex Assigned At : Social History Observation Description Sex Assigned At Female Social History Additional Details Category Social Info Options Details Migrated Social History Migrated Social History Alcohol Intake: None 04/07/2022,Tobacco Years: Never smoker 12/21/2023 Problems Problem Type SNOMED Code ICD Code Onset Dates Problem Status W/U Status Risk Notes Problem Bipolar affective disorder, currently depressed, moderate (657888386) Bipolar disorder, current episode depressed, moderate (F31.32) 12/21/19 24 Active confirmed Problem Attention deficit hyperactivity disorder, combined type (86310175) Attention-deficit hyperactivity disorder, combined type (F90.2) Active confirmed Vital Signs Heart Rate 99 /min 05/03/2025 Height-cm 170.18 cm 05/03/2025 Blood pressure diastolic 74 mm Hg 05/03/2025 Weight-kg 95.07 kg 05/03/2025 Height 67.00 in 05/03/2025 Blood pressure systolic 122 mm Hg 05/03/2025 Weight 209.6 lbs 05/03/2025 BMI 32.82 kg/m2 05/03/2025 Encounters Encounter Location Date Provider Diagnosis [id number] [address] [address] 09/26/2024 Julian Cummings Attention-deficit hyperactivity disorder, combined type F90.2 and Bipolar disorder, current episode depressed, moderate F31.[address] [facility] [address] [place] [address] [address] [facility] [address] [place] [address] 12/06/2024 Julian Cummings Encounter for screen ing for cardiovascular disorders Z13.6 ; Encounter for screening for depression Z13.31 ; Attention-deficit hyperactivity disorder, combined type F90.2 and Bipolar disorder, current episode depressed, moderate F31.32 [facility] [address] [place] [address] [address] [facility] [address] [place] [address] 01/07/2025 Julian Cummings Encounter for screen ing for cardiovascular disorders Z13.6 ; Encounter for screening for depression Z13.31 ; Attention-deficit hyperactivity disorder, combined type F90.2 and Bipolar disorder, current episode depressed, moderate F31.32 [facility], [facility] [address] [address] [place] [address] 02/19/2025 Julian Cummings Encounter for screen ing for cardiovascular disorders Z13.6 ; Encounter for screening for depression Z13.31 ; Attention-deficit hyperactivity disorder, combined type F90.2 and Bipolar disorder, current episode depressed, moderate F31.32 [facility], [facility] [address] [place] [address] 03/29/2025 Julian Cummings Attention-deficit hyperactivity disorder, combined type F90.2 and Bipolar disorder, current episode depressed, moderate F31.32 [facility], [facility] [address] [place] [address] 05/03/2025 Julian Cummings Bipolar disorder, current episode depressed, moderate F31.32 and Attention-deficit hyperactivity disorder, combined type F90.2 [facility], [facility] [address] [place] [address] 08/28/2024 Julian Cummings Attention-deficit hyperactivity disorder, combined type F90.2 [facility], [facility] [address] [place] [address] 09/03/2024 Julian Jonesoza [facility], [facility] [address] [place] [address] 10/31/2024 Julian Jonesoza [facility], [facility] [address] [place] [address] 01/07/2025 Julian Jonesoza [facility], [facility] [address] [place] [address] 01/21/2025 Julian Cummings [facility], [facility] [address] [place] [address] 10/31/2024 Julian Cummings Attention-deficit hyperactivity disorder, combined type F90.2 [facility], [facility] [address] [place] [address] 10/31/2024 Julian Cummings Attention-deficit hyperactivity disorder, combined type F90.2 [facility], [facility] [address] [place] [address] 05/03/2025 Julian Cummings Attention-deficit hyperactivity disorder, combined type F90.2 [facility] [address] [place] [address] 05/03/2025 Julian Cummings [facility], [facility] [address] [place] [address] 06/17/2025 Julian Cummings [facility], [facility] [address] [facility] [address] [place] [address] 06/17/2025 Julian Cummings [facility], [facility] [address] [facility] [address] [place] [address] 06/17/2025 Julian Cummings Attention-deficit hyperactivity disorder, combined type F90.2 [facility] [address] [facility] [address] [place] [address] 06/18/2025 Julian Cummings [facility] [address] [facility] [address] [place] [address] 07/10/2025 Julian Cummings Attention-deficit hyperactivity disorder, combined type [...] twice daily and Vraylar 3 mg. - Mds Manager does not want to increase Vraylar due [...] persists. 3. ADHD: - Patient reports Concerta (Methylphenidat e) is working well for ADHD. - Prescription was filled on 08/23 and again on 09/03, but patient did not receive the latter. Plan: - Monitor patient's response to Concerta and adjust dosage if necessary. 4. Bupropion: - Patient confirms they are still taking bupropion. Plan: - Continue current medication. - Monitor patient's response to bupropion and adjust dosage if necessary. 10/31/2024 Attention-defic it hyperactivity disorder, combined type (ICD-10 - F90.2) 10/31/2024 Attention-defic it hyperactivity disorder, combined type (ICD-10 - F90.2) 12/06/2024 Encounter for screening for cardiovascular disorders (ICD-10 - Z13.6) 03/29/2025 Bipolar disorder, current episode depressed, moderate (ICD-10 - F31.32) 03/29/2025 Attention-defic it hyperactivity disorder, combined type (ICD-10 - F90.2) 05/03/2025 Bipolar disorder, current episode depressed, moderate (ICD-10 - F31.32) 05/03/2025 Attention-defic it hyperactivity disorder, combined type (ICD-10 - F90.2) 06/17/2025 Attention-defic it hyperactivity disorder, combined type (ICD-10 - F90.2) 07/10/2025 Attention-defic it hyperactivity disorder, combined type (ICD-10 - F90.2) 02/19/2025 Encounter for screening for cardiovascular disorders (ICD-10 - Z13.6) 01/07/2025 Encounter for screening for cardiovascular disorders (ICD-10 - Z13.6) 01/07/2025 Encounter for screening for depression (ICD-10 - Z13.31) 02/19/2025 Encounter for screening for depression (ICD-10 - Z13.31) 05/03/2025 Attention-defic it hyperactivity disorder, combined type (ICD-10 - F90.2) 12/06/2024 Encounter for screening for depression (ICD-10 - Z13.31) 09/26/2024 Bipolar disorder, current episode depressed, moderate (ICD-10 - F31.32) 1. Depression: - Patient reports feeling more depressed over the last 6 months. - Currently on Cymbalta 30 mg twice daily and Vraylar 3 mg. - Mds Manager does not want to increase Vraylar due [...] persists. 3. ADHD: - Patient reports Concerta (Methylphenidat e) is working well for ADHD. - Prescription was filled on 08/23 and again on 09/03, but patient did not receive the latter. Plan: - Monitor patient's response to Concerta and adjust dosage if necessary. 4. Bupropion: - Patient confirms they are still taking bupropion. Plan: - Continue current medication. - Monitor patient's response to bupropion and adjust dosage if necessary. 12/06/2024 Attention-defic it hyperactivity disorder, combined type [...] current episode depressed, moderate (ICD-10 - F31.32) 12/06/2024 Bipolar disorder, current episode depressed, moderate [...] efforts have been made to correct them. 02/19/2025 Other Lamotrigine Lamotrigine has a serious [...] any of the serious side effect develops. Izabela Parra, a patient with bipolar disorder, presents with mood instability, describing a roller coaster ride between manic and depressive states, and increased irritability. Bipolar Disorder Assessment: Patient reports current mood instability, describing it as a roller coaster ride between manic and depressive states. They also note increased irritability and elevated resting heart rate (85 bpm, up from 72 bpm), which they interpret as a sign of systemic stress. Current medication regimen includes Vraylar 3 mg, bupropion, and Concerta 36 mg (2 tablets). Previous attempt to switch to Caplyta was unsuccessful due to insurance coverage issues. Plan: - Continue Vraylar 3 mg - Add lamotrigine 25 mg PO daily for 2 weeks - Advised to take in the evening - Informed patient it is weight neutral - Instructed patient to monitor for rash and report if one develops - Continue bupropion - Continue Concerta 36 mg (2 tablets) - Refill Concerta Weight Management Assessment: Patient reports no weight loss despite ongoing efforts. They note a discrepancy between their home scale measurements and clinical assessments, stating their weight has remained stable for the past two months according to their home scale. Plan: - Continue current weight management efforts the note is transcribed using speech recognition software. It is a reflection of a visit with the patient. It might have some inaccuracy, including medication names and transcribing errors, though efforts have been made to correct them. 03/29/2025 Anitra Parra presents with a history of mood instability, now reporting improvement with current medication regimen including Vraylar, lamotrigine, and Concerta. Mood Disorder Assessment: Patient reports feeling a little better since starting lamotrigine, now at 100 mg daily after a gradual titration (25 mg for 2 weeks, 50 mg for 2 weeks). Notes increased interest in activities and easier awakening, though still experiences some blah feelings. Previously reported extreme mood fluctuations (roller coaster ride) with periods of prolonged sleep, which have improved. Sleep patterns have normalized, though patient may still oversleep at times. Irritability has decreased. No reported side effects from lamotrigine, though patient inquired about a possible connection to recent nightmares. Plan: - Continue Vraylar - Continue lamotrigine 100 mg daily - Continue Concerta - Follow-up appointment in 4-6 weeks to reassess lamotrigine dosage and overall response the note is transcribed using speech recognition software. It is a reflection of a visit with the patient. It might have some inaccuracy, including medication names and transcribing errors, though efforts have been made to correct them. 05/03/2025 Anitra Parra, a mother with a history of ADHD, presents for medication management and reports generally stable mood with some ongoing attention and task completion difficulties. Attention-Deficit/ Hyperactivity Disorder (ADHD) Assessment: Patient reports current methylphenidate regimen is still working a little bit but notes it's not as effective as initially. She describes improved ability to return to tasks after interruptions and increased motivation to initiate activities. However, task completion and sustained focus remain challenging. Patient is currently on the maximum dose of methylphenidate, limiting further dose increases. Plan: - Continue methylphenidate 36 mg, 2 tablets daily - Discussed potential future medication options if current regimen becomes ineffective: - Dexmethylphenidate (Focalin) - Amphetamine-based medications (e.g., Adderall, Vyvanse) - Patient prefers to maintain current regimen at this time - Follow-up in 3 months Mood Disorder Assessment: Patient reports stable mood with no significant anger or irritability. Current medication regimen appears to be effective in managing mood symptoms. Plan: - Continue Vraylar 3 mg - Continue lamotrigine 100 mg Vitamin B12 Deficiency Assessment: Patient mentions a history of B12 deficiency, which she associates with cognitive difficulties and reduced energy levels. The timing of B12 deficiency symptoms coincided with a decrease in medication efficacy. Plan: - Continue current B12 supplementation (details not specified in transcript) - Monitor for any recurrence of B12 deficiency symptoms the note is transcribed using speech recognition software. It is a reflection of a visit with the patient. It might have some inaccuracy, including medication names and transcribing errors, though efforts have been made to correct them. Plan Of Treatment Next Appt Details Provider Name:Julian shaw, 08/05/2025 01:30:00 PM, [address] [facility] [address] [facility] [address], [place], [address], Insurance Providers Payer Name Payer Address Payer Phone Subscriber Number Group Number Insured Name Patient Relationship to Insured Coverage Start Date Coverage End Date [employer] [address] [place] [address] [id number] IZABELA PARRA Self - patient is the insured Medicaid-[place] l Medicaid [address] [address] [place] [address] [id number] IZABELA PARRA Self - patient is the insured Medical (General) History Medical History History ICD Code Problems: Attention deficit hyperactivit y disorder, combined type Bipolar affective disorder, current epis ode depression , Surgical History Surgery Date(Month/Year) Other 09/19/1998 Hysterectomy (04266) 09/19/1999 Removal of gallbladder (37318) 1 Any surgical history 09/19/2009 Appendectomy (42808) 09/20/1993
--- OUTSIDE RECORDS SUMMARY | 2025-07-15 12:39 | XMS_ITS | Clinical Summary ---
Author Organization [facility] Address [address] [place] [address] Phone Care Team Providers Care Manager Business Development Hospice Name Role Phone Radha Kaminski Primary Care Provider [phone] Allergies Active Allergy Reactions Criticality Noted Date Comments Prochlorperazine Other (see comments),Shortness of breath High 11/26/2016 Lockjaw Lockjaw Medications aspirin (ST DUDLEY) 81 MG EC tablet Take 81 mg by mouth daily Active buPROPion XL (WELLBUTRIN XL) 150 MG 24 hr tablet 2 Active Cholecalciferol (Vitamin D3) 1.25 MG (10833 UT) capsule Twice a week 2 Active [...] Done Comments Influenza Vaccine (#1) [address] [place] [address] [place] [address] Care Teams Manager Business Development Hospice Relationship Specialty Start Date End Date Radha Kaminski [facility] [place] [address] PCP - General Family Medicine 06/21/22
--- OUTSIDE RECORDS SUMMARY | 2025-07-15 12:40 | XMS_ITS | Clinical Summary ---
Author Organization [facility] [employer] Address [address] [place] [address] Care Team Providers Care Lead Janitor Name Role Phone Roland Rojas DO Primary [...] NIGHT 90 tablet 3 02/26/20 25 Active evolocumab (Repatha Syringe) syringe syringeIndicat ions:Coronary arterioscleros is,Dyslipidemi a INJECT 1 ML (140 MG TOTAL) UNDER THE SKIN EVERY 14 DAYS. 2 mL 6 07/08/20 25 Active evolocumab (REPATHA) syringe syringeIndicat ions:Coronary arterioscleros is,Dyslipidemi a Inject 1 mL (140 mg total) under the skin every 14 (fourteen) days 2 mL 1 06/14/20 25 025 Discontinued Active Problems Problem Noted Date Diagnosed Date Obesity (BMI 30.0-34.9) 06/14/2025 Pain in joint involving ankle and foot Chronic pain syndrome 06/22/2023 Postlaminectomy syndrome 05/17/2023 Cervical radiculopathy 05/17/2023 Radiculopathy, lumbosacral region 05/17/2023 Coronary artery disease invo lving [place] coronary artery of [place] heart without angina pectoris 04/19/2023 Essential hypertension [...] (01/24/2024): Added automatically from request for surgery [id number] Nonspecific abnormal results of function study o [...] 05/17/2023 Type 2 diabetes mellitus without complication Encounters Date Type Department Care Team Description 06/14/2025 2:30 PM CDT Office Visit [facility] Cardiology at [address] [place] [address] Rhett Ramírez MD Coronary artery disease involving [place] coronary artery of [place] heart without angina pectoris (Primary Dx); Hyperlipidemia associated with type 2 diabetes mellitus (HCC); Hypertension associated with diabetes (HCC); Bilateral carotid artery stenosis; Obesity (BMI 30.0-34.9) from Last 3 Months Surgical History Surgery Date Site/Laterality Comments HYSTERECTOMY APPENDECTOMY CHOLECYSTECTOMY TUBAL LIGATION Medical History Medical History Date Comments Allergic rhinitis Anxiety Depression Diabetes mellitus Hyperlipidemia Hypertension Coronary artery disease Aortic valve [...] on file 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 Gender Identity Not on file Sexual Orientation Not on file Obstetrics History Last Filed Vital Signs Vital Sign Reading Time Taken Comments Blood Pressure 118/64 06/14/2025 2:15 PM CDT Pulse 74 06/14/2025 2:15 PM CDT Temperature 36.5 C (97.7 F) 02/18/2022 2:55 PM CDT Respiratory Rate 17 05/17/2023 1:17 PM CDT Oxygen Saturation 98% 06/14/2025 2:15 PM CDT Inhaled Oxygen Concentration - - Weight 91.2 kg (201 lb) 06/14/2025 2:15 PM CDT Height 170.2 cm (5' 7) 06/14/2025 2:15 PM CDT Body Mass Index 31.48 06/14/2025 2:15 PM CDT Plan of Treatment Health Maintenance Due [...] 02/18/2022 Influenza Vaccine (#1) 2025 Lipid Panel 06/14/2026 06/14/2025, 08/23/2024 Procedures Procedure Name Priority Date/Time Associated Diagnosis Comments POCT LIPID PANEL Routine 06/14/2025 2:58 PM CDT Hyperlipidemia associated with type 2 diabetes mellitus (HCC) EGFR STAT 02/18/2022 1:07 PM CDT from Last 3 Months or Most Recently Relevant to Health Maintenance Results * (ABNORMAL) POCT lipid panel (06/14/2025 2:58 PM CDT) Cholesterol, POC 362 <200 MG/DL HDL, POC 37(A) >=40 mg/dL Triglycerides, POC 459(A) <=149 mg/dL LDL Cholesterol POC 233.2(A) <=129 mg/dL Chol/HDL Ratio, POC 325 NONE Non-HDL Cholesterol, POC 9.7 NONE mg/dL Cholesterol Total, POC 362(A) 30 - 199 mg/dL Capillary blood 06/14/2025 2 :58 PM CDT Rhett Ramírez MD POINT OF CARE TEST ORDERA BLES Edited Result - Final * eGFR (02/18/2022 1:07 PM CDT) eGFR 67 mL/min/1. 73 m2 AMANUEL JOHN Comment: Interpretive Data Reference Interval Normal >/= [...] LAB BLOOD ORDERABLES Final Re sult AMANUEL LOPEZ [address] [facility] Department [place] [address] from Last 3 Months or Most Recently Relevant to Health Maintenance Insurance [employer] OPEN ACCESS CIGNA OPEN ACCESS IDPA CIGNA OPEN ACCESS CIGNA OPEN ACCESS Care Teams Lead Janitor Relationship Specialty Start Date End Date Roland Rojas DO [address] [place] [address] PCP - General Family Medicine 01/24/24
--- OUTSIDE RECORDS SUMMARY | 2025-07-15 12:40 | XMS_ITS | Encounter Summary ---
Author Organization [facility] Address [address] [place] [address] Care Team Providers Care Liner Worker Name Role Phone Radha Kaminski [employer] DELIV[employer] VEHICLE TEAM TECHNICIAN Primary Care Provider [phone] Harmony Mcrae MD Unavailable Encounter Details Date Type Department Care Team (Late st Contact Info) Description 06/20/2023 Lab Requisition [facility] - DermPath Lab [address] [facility] [place] [address] Andrzej Aguilar MD [address] [place] [address] Social History Tobacco Use Types Packs/Day Years Used Date Smoking Tobacco: Never Smokeless Tobacco: Never Alcohol Use Standard Drinks/Week Comments Never 0 (1 standard drink = 0.6 oz pur e alcohol) Comments Unknown Sex and Gender Information Value Date Recorded Sex Assigned at Not on file 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 Gender Identity Not on file Sexual Orientation Not on file documented as of this encounter Plan of Treatment Not on file documented as of this encounter Procedures Procedure Name Priority Date/Time Associated Diagnosis Comments DERMATOPATHOLOGY Routine 06/20/2023 12:0 0 AM CDT documented in this encounter Results * DERMATOPATHOLOGY (06/20/2023 12:00 AM CDT) Case Report Dermatopathology Report Case: [id number] Authorizing Provider: Andrzej Aguilar MD Collected: 06/20/2023 12:00 AM Ordering Location: [facility] DermPath Lab Received: 06/21/2023 06:10 AM [...] determined by the Dermatopathology Laboratory at [facility], directed by Dr. Jean-Pierre Miller. These tests need not be, and therefore are not, approved by the [place] Food and Drug Administration. The tests are used for clinical purposes. Billing Codes Specimen Charges Stain Charges 27690 1 17907 1 4:35 PM CDT DERMATOPATHOLOGY LABORATORY Embedded Images 4:35 PM CDT DERMATOPATHOLOGY LABORATORY Pathology/Cytolog y TISSUE SPECIMEN FROM SKIN / Unknown 06/20/2023 06/21/2023 6:10 AM CDT us Andrzej Aguilar MD LAB - PATHOLOGY/CYTOLOGY ORDERAB LES Final Result DERMATOPATHOLOGY LABORATORY [facility] - Department of Dermatology [facility] Medicine [address] [facility] [phone] documented in this encounter Visit Diagnoses Not on filedocumented in this encounter Care Teams Liner Worker Relationship Specialty Start Date End Date Radha Kaminski APRN-SEAL DELIVERY VEHICLE TEAM TECHNICIAN [address] [facility] [address] [place] [phone] PCP - General Nurse Practitioner Family 12/03/21 [place] [address] [place] [address] [place] [address] Rheumatology 12/03/21 documented as of this encounter
--- OUTSIDE RECORDS SUMMARY | 2025-07-15 12:40 | XMS_ITS | Clinical Summary ---
Author Organization [facility] [employer] Address [address] [place] [address] Care Team Providers Care Manager Continuous Improvement Name Role Phone Radha Kaminski [employer] DEALER Primary Care Provider [phone] Harmony Mcrae MD Unavailable Source Comments [facility] [employer],non-owned Affiliates and Associated Physician Practices is amultiple site organization consisting of ambulatory clinics and hospital sitesin [place], [place] and [place]. This disclosure is being madepursuant to the Care Everywhere program and may not contain all information available regarding this patient. Last updated 18.[facility] Allergies Active Allergy Reactions Criticality Noted [...] fluticasone propionate (FLONASE) 50 MCG/ACT nasal spray [place] 2 (two) sprays into each nostril once daily Active blood glucose (Extreme StartupsTOUCH ULTRA) test strip USE TO TEST THREE TIMES A DAY 1 Active estradiol (ESTRACE) 2 MG tablet Take 1 (one) tablet by mouth every 24 hours Active Multiple Vitamins-Duarte als (MULTI VITAMIN/MINERA LS) TABS Take 1 (one) tablet by mouth once daily Active [place]-3 Fatty Acids (FISH OIL) 1000 MG capsule Take 1 (one) capsule by mouth once daily Active Cholecalcifero l 1.25 MG (31108 UT) Take 1 capsule by mouth every [...] naloxone HCl (Narcan) 4 MG/0.1ML nasal spray [place] 1 (one) spray into the nose Active [...] day by topical route. 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 Gender Identity Not on file Sexual Orientation Not on file Last Filed Vital Signs Vital Sign Reading Time Taken Comments Blood Pressure 122/68 10/06/2023 2:03 PM TREE KILLER Pulse 79 10/06/2023 2:03 PM TREE KILLER Temperature 36.6 C (97.9 F) 01/07/2022 2:03 PM CDT Respiratory Rate 16 08/02/2023 2:35 PM TREE KILLER Oxygen Saturation 97% 08/02/2023 2:35 PM TREE KILLER Inhaled Oxygen Concentration - - Weight 93.9 kg (207 lb) 10/06/2023 2:03 PM TREE KILLER Height 170.2 cm (5' 7) 10/06/2023 2:03 PM TREE KILLER Body Mass Index 32.42 10/06/2023 2:03 PM TREE KILLER Plan of Treatment Health Maintenance Due Date [...] 2018 ZOSTER VACCINE (1 of 2) 2018 DEPRESSION SCREENING 09/19/2024 COVID-19 VACCINE (1 - 2023-2 5 season) 2025 INFLUENZA VACCINE (#1) 2025 SCREENING FOR DIABETES 08/02/2026 08/02/2023 HEPATITIS [...] COMPREHENSIVE METABOLIC PANEL Routine 08/02/2023 3:29 PM TREE KILLER Arthralgia, unspecified joint HEPATITIS SCREEN ACUTE ([facility]) Routine 08/02/2023 3:28 PM TREE KILLER Arthralgia, unspecified joint from Last 3 Months or Most Recently Relevant to Health Maintenance Results * (ABNORMAL) COMPREHENSIVE METABOLIC PANEL (08/02/2023 3:29 PM TREE KILLER) Glucose 95 70 - 99 mg/dL [facility] [...] BLOOD SPECIMEN / Unknown 08/02/2023 3:29 PM TREE KILLER 08/02/2023 Narrative Resulting Agency Comment [facility] [address] [facility] [facility] [id number] Harmony Mcrae MD LAB - CHEMISTRY ORDERABLES Final Result [facility] INSURANCE BILL [address] [place] [address] * HEPATITIS SCREEN ACUTE ([facility]) (08/02/2023 3:28 PM TREE KILLER) Hepatitis A Virus Antibody IgM Negative Negative [facility] INSURANCE BILL Hepatitis B Virus Surface Antigen Negative Negative [facility] INSURANCE BILL Hepatitis B Core Virus Antibody IgM Negative Negative [facility] INSURANCE BILL Hepatitis C Antibody Non Reactive Non Reactive [facility] INSURANCE BILL Blood BLOOD SPECIMEN / Unknown 08/02/2023 3:28 PM TREE KILLER 08/02/2023 Narrative Resulting Agency Comment Lab Testing performed at: [facility] [id number] Harmony Mcrae MD LAB - CHEMISTRY ORDERABLES Final Result [facility] INSURANCE BILL [address] [place] [address] from Last 3 Months or Most Recently Relevant to Health Maintenance Insurance Care Teams Manager Continuous Improvement Relationship Specialty Start Date End Date Yamilex RadhaMYRON-SCOTT [address] [facility] [address] [place] [phone] PCP - General Nurse Practitioner Family 12/03/21 [place] [address] [place] [address] [place] [phone] Rheumatology 12/03/21
--- OUTSIDE RECORDS SUMMARY | 2025-07-15 12:40 | XMS_ITS | Data Portability ---
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 She voices understanding of this. [email or web address] Not available 02/23/2023 16:47:43 Plan of Treatment Reminders Order Date Submit Date Provider Last Modified By Organization Details Last Modified Time Details Appointments None recorded. Lab vitamin D, 25-hydroxy, total, serum [address] [facility], [address], [place], [address], 3 04:44:38 Referral None recorded. Procedures colonoscopy screening (PROC) 2022 023 [email or web address] Tim Jaeger MD, [address], [address], [place], [address], 3 14:31:06 Surgeries None recorded. Imaging MAMMO, screening, bilateral 2022 023 [email or web address] [facility], [address], [place] [address], [place], [address], 4 15:56:08 Medication Orders None recorded. Patient TargetsNo targets recorded. Patient Instructions Encounter Date Encounter Id Patient Instructions Last Modified By Organization Details Last Modified Time 02/23/2023 [id number] INFLUENZA VACCIN E Next vaccination to be [...] Known Diabetic LIPID SCREENING Diagnosis of Hyperlipidemia Not available 02/23/2023 16:51:34 Reason for Referral None Reported. Results Created Date Observation Date Name Description Value Unit Range Abnormal Flag Note LastModifiedBy Organization Detail LastModifiedTime 11/08/1911/08/2022 US, renal No observ ation record ed. [id number] [facility] [address] [place], [address], 11/17/2022 20:40:02 11/11/1911/11/2022 CT, cervi daina spine , w/o contr ast No observ ation record ed. [id number] [facility] [address] [place], [address], 11/17/2022 20:40:02 11/11/19 23 11/11/2022 CT, lumba r spine , w/o contr ast No observ ation record ed. [id number] [facility] [address] [place], [address], 11/17/2022 20:40:02 11/26/19 23 11/24/2022 XR, lumba r spine No observ ation record ed. [address] [place], [address], 11/26/2022 17:06:46 11/26/19 23 11/24/2022 XR, cervi daina spine No observ ation record ed. [address] [place], [address], 11/26/2022 17:07:30 01/30/20 23 01/29/2023 XR, wrist No observ ation record ed. [address] [place], [address], 02/01/2023 11:13:37 07/22/2007/22/2023 CT, head + brain , w/o contr ast No observ ation record ed. [address] [place], [address], 07/28/2023 17:21:08 Result Notes None recorded. Problems Name Problem SNOMED Code Status Onset Date Resolution Date Notes Provider Name and Address Organization Details Recorded Time Suppurativ e arthritis 762183855 Active Not Available [facility] 3 20:39:10 Carpal tunnel syndrome of right wrist 8656825722462 08 Active 2021 Not Available [employer] 3 20:39:10 Mixed anxiety and depressive disorder 450166352 Active 2022 Radha Kaminski, ASIM-Rafael [address] [place] [address], [facility] [address], [place], [address] , [facility] [employer] [facility] 19:36:32 Type 2 diabetes mellitus without complicati on 099840660 Active 2022 MARTHA InfanteC [address] [employer], [address], [address] , [facility] 19:36:38 Neuropathy 537225540 Active 2022 ASIM Infante-C [address] [employer], [address], [address] , [facility] [employer] 19:36:54 Asthma 806657580 Active 2022 GISELE Infante [address] [employer], [address], [address] , [facility] [employer] [facility] 19:36:57 Allergic rhinitis 83344510 Active 2022 ASIM Infante-C [address] [employer], [address], [address] , [facility] [employer] 19:37:23 Cardiovasc ular stress test abnormal 409985633 Active 2022 ASIM Infante-C [address] [employer], [address], [address] , [facility] [employer] [facility] 19:38:27 Vitamin D deficiency 53114636 Active 2022 GISELE Infante [address] [employer], [address], [address] , [facility] [employer] [facility] 19:38:34 Fatigue 83109736 Active 2022 ASIM Infante-C [address] [employer], [address], [address] , [facility] [employer] [facility] 19:38:37 Chronic pain syndrome 353659790 Active 2022 Iliana kolb, [facility] 14:31:47 Problem Notes None recorded. Procedures Surgical History Date Name Laterality Status Provider Name and Address Organization Details Recorded Time Hysterectomy completed Not Available [facility] 11/17/2022 20:38:32 Neck Surgeries completed Not Available [facility] 11/17/2022 20:38:32 Back Surgeries completed Not Available [facility] 11/17/2022 20:38:32 Foot Surgery completed Not Available [facility] 11/17/2022 20:38:32 Knee Surgery completed Not Available [facility] 11/17/2022 20:38:32 Imaging Results None recorded. Procedure Notes None recorded. Medical Equipment None Reported. Allergies Allergen ID Allergen Name Allergen Category Reaction Reaction Severity Criticality Documentation Date Start Date Code Code System Note Provider Name and Address Organization Details Recorded Time 79928 Compazine medicatio n Not available Not available Not available 11/17/202201235 6 RxNorm (lock jaw) Not Available Critical [...] % 97 % 98 /min 98.1 [degF] 08593.4 7 g 128/76 mm[Hg] Not Available [facility] 3 20:38:57 Date Recorded Body height Body mass index (BMI) Body weight Body temperature Heart rate Oxygen saturation Oxygen saturation in Arterial blood by Pulse oximetry Systolic And Diastolic Provider Name and Address Organization Details Last Updated DateTime 3 170.18 cm 28.2 kg/m2 79980.6 3 g 98.4 [degF] 82 /min 98 % 98 % 118/74 mm[Hg] KAILYN Perez - [facility] [place] [facility] 3 16:17:44 Date Recorded Body mass index (BMI) Body height Body weight Provider Name and Address Organization Details Last Updated DateTime 05/25/2022 34.5 kg/m2 170.18 cm 17815.32 g Not Available [facility] 11/17/2022 20:38:59 Date Recorded Body mass index (BMI) Body height Body weight Provider Name and Address Organization Details Last Updated DateTime 08/24/2022 33.2 kg/m2 170.18 cm 16618.58 g Not Available [facility] 11/17/2022 20:38:59 Date Recorded Body mass index (BMI) Body height Oxygen saturation Oxygen saturation in Arterial blood by Pulse oximetry Heart rate Body temperature Body weight Systolic And Diastolic Provider Name and Address Organization Details Last Updated DateTime 2 32.6 kg/m2 170.18 cm 97 % 97 % 98 /min 97.7 [degF] 53781.2 1 g 132/76 mm[Hg] Not Available [facility] 20:38:57 Social History Question Answer Notes LastModified by Organizat ion Details LastModified Time Tobacco Smoking Status Never Smoker Not Available [facility] 11/17/2022 20:38:28 Do You Wear A Helmet When Biking? No [id number].37265 [id number] Information not available 11/17/2022 What Is Your Level Of Caffeine Consumption? Moderate MIGRATION.02827 92754 Information not available 11/17/2022 In The 14 Days Before Symptom Onset, Have You Had Close Contact With A Laboratory-confir med COVID-19 While That Case Was Ill? No MIGRATION.74480 40805 Information not available 11/17/2022 In The 14 Days Before Symptom Onset, Have You Had Close Contact With A Person Who Is Under Investigation For COVID-19 While That Person Was Ill? No MIGRATION.31517 91954 Information not available 11/17/2022 What Type Of Diet Are You Following? REGULAR MIGRATION.88174 14152 Information not available 11/17/2022 Have There Been Any Changes To Your Family Or Social Situation? No MIGRATION.37555 10964 Information not available 11/17/2022 What Is The Fluoride Status Of Your Home? Unknown MIGRATION.66479 33783 Information not available 11/17/2022 Do You Use Insect Repellent Routinely? No MIGRATION.25380 08030 Information not available 11/17/2022 Where Do You Live? [place] MIGRATION.19622 75319 Information not available 11/17/2022 What Was The Date Of Your Most Recent Tobacco Screening? 02/23/2023 [email or web address] Information not available 02/23/2023 Do You Have Any Pets? Yes MIGRATION.68188 73154 Information not available 11/17/2022 Do You Have Smoke And Carbon Monoxide Detectors In Your Home? Yes MIGRATION.04975 28595 Information not available 11/17/2022 Are You Passively Exposed To Smoke? No MIGRATION.42617 60492 Information not available 11/17/2022 Are There Any Smokers In Your House? No MIGRATION.78521 40033 Information not available 11/17/2022 Do You Use Sunscreen Routinely? No MIGRATION.67053 48879 Information not available 11/17/2022 Have You Recently Traveled Abroad? No MIGRATION.05690 74293 Information not available 11/17/2022 Do You Have Any Dietary Restrictions? No MIGRATION.61834 84145 Information not available 11/17/2022 Sex: Unknown Functional Status Question Answer Note LastModified by Organizat ion Details LastModified Time Do you or have you ever used any other forms of tobacco or nicotine? No MIGRATION.[id number] 6 Information not available 11/17/2022 What is your level of alcohol consumption? None MIGRATION.716563475 6 Information not available 11/17/2022 What is your exercise level? Moderate MIGRATION.[id number] 6 Information not available 11/17/2022 Mental Status Question Answer Note LastModified by Organizat ion Details LastModified Time Do you feel stressed (tense, restless, nervous, or anxious, or unable to sleep at night)? EL5610-1 MIGRATION.[id number] 6 Information not available 11/17/2022 Family History Relationship Description Onset Age of this Age Resolved Age Notes LastModified by Organization Details LastModified Time Mother Family history of malignant neoplasm [id number].[id number] Not available 11/17/2022 20:38:33 Medical History Condition Response DIABETES, TYPE Y Gynecological HistoryNo gynecological history recorded. Obstetrics History GPAL:G 0 P 0 0 0 0 Past Encounters Encounter ID Performer Location Encounter Start Date Encounter Closed Date Diagnosis/Indication Diagnosis SNOMED-CT Code Diagnosis ICD10 Code Diagnosis IMO Codes Diagnosis Note [id number] Isabella shaw MD [facility] [place] [address] [facility] [address] , [place] [address] 12/02/2021 00:00:00 12/02/2021 17:07:21 [id number] Isabella shaw MD [facility] Internal Med [place] [address] [place] [address] [place] [address] 12/30/2021 00:00:00 12/30/2021 14:49:27 [id number] Edward Osborne MD [facility] [place] [address] [place] [address] 01/12/2022 00:00:00 01/12/2022 15:29:24 [id number] Isabella shaw MD [facility] Internal Med [place] [address] [place] [address] [place] [address] 01/20/2022 00:00:00 01/20/2022 14:52:49 [id number] Isabella shaw MD [facility] Internal Med [place] [address] [place] [address] [place] [address] 02/03/2022 00:00:00 02/03/2022 15:30:47 [id number] Isabella shaw MD [facility] Internal Med [place] [address] [place] [address] [place] [address] 03/31/2022 00:00:00 03/31/2022 16:28:57 [id number] Edward Osborne MD [facility] [place] [address] [place] [address] 04/09/2022 00:00:00 04/09/2022 13:24:19 [id number] Edward Osborne MD [facility] [address] [place] [address] 04/27/2022 00:00:00 04/27/2022 16:52:36 [id number] Edward Osborne MD [facility] [address] [place] [address] 05/25/2022 00:00:00 05/25/2022 16:49:47 [id number] Edward Osborne MD [facility] Ortho [place] [address] [facility] [address] [place] [address] 08/24/2022 00:00:00 08/24/2022 17:22:21 [id number] Isabella shaw MD [facility] Internal Med [place]in[place] [address] [place] [address] [place] [address] 08/25/2022 00:00:00 08/25/2022 16:57:02 [id number] Isabella shaw MD [facility] Internal Med [facility] [address] [place] [address] 11/01/2022 00:00:00 11/01/2022 16:01:52 [id number] Isabella shaw MD [facility] Internal Med Gail marinelli [address] [place] [address] y , [place] [address] 02/23/2023 16:02:31 02/23/2023 16:32:14 Mixed anxiety and depressive disorder 243711390 F41.8 now following psychiatry - Dr. Rollins's officeon wellbutrin from [facility] office if any change in mood or behaviorSh e is able to commit to safety todayconti nue counseling Type 2 wendy betes mellitus without complication 718952368 E11.9 on Trulicity, glimiperid efollows endocrinol ogy- Dr. Garcia in [facility] eye exam- 11/2021- encouraged her to schedule pt is aware of side effects, risks, benefitspt denies any personal or family history of MEN II or MTC, denies and personal history of pancreatit ispt knows to call the office if any severe n/v or abdominal pain Neuropathy 676382769 G62 .9 follows podiatry- Dr. Harley Gipson gabapentin from [facility] Asthma 274919558 J45.90 9 on proair prnon Symbicort, she is worse at effects, risks, benefitssh e is aware to rinse and spit after use Carpal julita kendra syndrome of right wrist 9268177676 95800 G56.01 now following hand surgery- Dr. Osborne Allergic rhinitis 828154 04 J30.9 on flonase and singulairc all office if any change in mood or behavior Body mass index 30+ - obesity 145121886 Z68.31 recommend healthy, well balanced mealsfocus on lean meats, fresh vegetables , fresh fruits, whole grainsredu ce fast/proce ssed foods or eating out to no more than 1-2 times per weekaim to get 30 min of exercise most days of the week- walking is a great choice Cardiovasc ular stress test abnormal 198526556 R94.39 cardiac cath was ok per cardiologi st note Vitamin D deficiency 347 73769 E55.9 hold vitamin d x 4 weeks and then repeat levelnever got repeat level- encouraged her to get Fatigue 35164803 R53.83 no explanatio n for fatigue in labs, recommend sleep study- she declines Screening mammography 24 763612 Z12.31 Family his tory of cancer of colon 875344388 Z80.0 Adult heal th examination 484582053 Z00.01 Depression screening 171 889311 Z13.31 Body mass index 25-29 - overweight 771540249 Z68.28 recommend healthy, well balanced mealsfocus on [...] Member ID Guarantor Name 02/20/2023 1 PRETTY [id number] Niles Croft [id number] 1 Niles Croft Notes Date Note Type Note Provider Name and Address Organization Details Recorded Time 02/23/2023 text/html Niles presents today for follow up. She is also due for annual wellness exam. she reports she has had a ne the foot surgery with her aircraft mechanic. She follows up again in a couple weeks. She is just on a regular tennis shoe and not in a boot at this time. She continues to follow Endocrinology for her diabetes. They order all of her labs. She also continues to follow with her petroleum transport driver regularly. She still refuses her sleep study. [...] due for mammogram. Radha Kaminski, ASIM-C [address] [facility], [facility] [address], [place], [address], [place] [facility] [email or web address] 02/23/2023 16:52:24 OBGyn Episode No OBEpisode recorded.
--- OUTSIDE RECORDS SUMMARY | 2025-07-15 13:13 | XMS_ITS | Data Portability ---
Author Organization [facility] OFFICE Address [address] [place] [address] Assessment Encounter Date Assessment Date Assessment LastModified [...] current medications, and medical follow-up as noted. [email or web address] Not available 02/03/2022 11:19:05 03/03/2022 03/03/2022 Discussed with patient findings, diagnosis, and prognosis. Discussed evaluation and treatment options including risks and benefits with patient, and patient expressed understanding. The following interventions were recommended: heart healthy low-fat, low-sodium diet, continue regular exercise,maintain appropriate weight, continue current medications, and medical follow-up as noted. Not available 03/03/2022 17:54:51 05/05/2022 05/05/2022 Discussed with patient findings, diagnosis, and prognosis. Discussed evaluation and treatment options including risks and benefits with patient, and patient expressed understanding. The following interventions were recommended: heart healthy low-fat, low-sodium diet, continue regular exercise,maintain appropriate weight, continue current medications, and medical follow-up as noted. [email or web address] Not available 05/05/2022 15:03:06 10/27/2022 10/27/2022 Discussed with patient findings, diagnosis, and prognosis. Discussed evaluation and treatment options including risks and benefits with patient, and patient expressed understanding. The following interventions were recommended: heart healthy low-fat, low-sodium diet, continue regular exercise,maintain appropriate weight, continue current medications, and medical follow-up as noted. [email or web address] Not available 10/27/2022 12:40:07 01/05/2023 01/05/2023 Discussed with patient findings, diagnosis, and prognosis. Discussed evaluation and treatment options including risks and benefits with patient, and patient expressed understanding. The following interventions were recommended: heart healthy low-fat, low-sodium diet, continue regular exercise,maintain appropriate weight, continue current medications, and medical follow-up as noted. [email or web address] Not available 01/05/2023 14:29:08 Plan of Treatment Reminders Order Date Submit Date Provider Last Modified By Organization Details Last Modified Time Details Appointments None recorded. Lab None recorded. Referral None recorded. Procedures None recorded. Surgeries None recorded. Imaging None recorded. Medication Orders rosuvastati n 20 mg tablet 2021 [facility], [address] [place] [address], [address], 17:57:13 magnesium oxide 400 mg (241.3 mg magnesium) tablet 2021 022 [email or web address] [facility], [address] [place] [address], [address], 3 11:14:53 atorvastati n 80 mg tablet 2021 022 [email or web address] [facility], [address] [place] [address], [address], 17:40:55 icosapent ethyl 1 gram capsule 2021 022 [facility], [address] [place] [address], [address], 11:47:50 Patient TargetsNo targets recorded. Patient Instructions Encounter Date Encounter Id Patient Instructions Last Modified By Organization Details Last Modified Time 02/03/2022 [id number] dizziness: care instructions [email or web address] Not available 02/03/2022 11:47:45 leg and ankle edema: care instructions [email or web address] Not available 02/03/2022 11:47:46 high blood pressure: care instructions [email or web address] Not available 02/03/2022 11:47:45 learning about high blood pressure [email or web address] Not available 02/03/2022 11:47:46 aortic valve regurgitation: care instructions [email or web address] Not available 02/03/2022 11:47:45 03/03/2022 [id number] leg and ankle edema: care instructions [email or web address] Not available 03/03/2022 17:57:11 dizziness: care instructions [email or web address] Not available 03/03/2022 17:57:11 high blood pressure: care instructions Not available 03/03/2022 17:57:11 learning about high blood pressure [email or web address] Not available 03/03/2022 17:57:11 aortic valve regurgitation: care instructions Not available 03/03/2022 17:57:11 05/05/2022 [id number] leg and ankle edema: care instructions [email or web address] Not available 05/05/2022 15:19:08 dizziness: care instructions [email or web address] Not available 05/05/2022 15:19:08 high blood pressure: care instructions [email or web address] Not available 05/05/2022 15:19:08 learning about high blood pressure [email or web address] Not available 05/05/2022 15:19:08 aortic valve regurgitation: care instructions [email or web address] Not available 05/05/2022 15:19:08 10/27/2022 [id number] leg and ankle edema: care instructions Not available 10/27/2022 12:49:16 dizziness: care instructions [email or web address] Not available 10/27/2022 12:49:16 high blood pressure: care instructions [email or web address] Not available 10/27/2022 12:49:16 learning about high blood pressure Not available 10/27/2022 12:49:16 aortic valve regurgitation: care instructions Not available 10/27/2022 12:49:16 01/05/2023 [id number] leg and ankle edema: care instructions [email or web address] Not available 01/05/2023 14:34:19 dizziness: care instructions [email or web address] Not available 01/05/2023 14:34:18 high blood pressure: care instructions [email or web address] Not available 01/05/2023 14:34:19 learning about high blood pressure [email or web address] Not available 01/05/2023 14:34:18 aortic valve regurgitation: care instructions [email or web address] Not available 01/05/2023 14:34:18 Reason for Referral [...] observ ation record ed. [facility] [address] [place] [address] [address], [place], [address], 02/23/2022 09:20:36 02/19/20 22 02/10/2022 US, echoc [...] 234. 02/18/22:PT 12.8,INR 1.0,aPTT 24. Alyssa kolb [facility] 07/07/2022 18:09:35 Covid-19 Counseling* : 02/17/22: Not detected Alyssa kolb [place] - [facility] 07/07/2022 18:26:45 Problems Name Problem SNOMED Code Status Onset Date Resolution Date Notes Provider Name and Address Organization Details Recorded Time Anxiety 90322416 Active 2016 Maty kolb [place] - [facility] 7 16:38:50 Depressive disorder 69843434 Active 2016 Maty kolb [facility] 7 16:38:57 Diabetes mellitus 11005235 Active 2016 Maty kolb [facility] 7 16:39:04 Essential hypertensio n 18310965 Active 2016 Adan kolb [facility] 7 17:47:48 History of obesity 112861787 Active 2016 Elissa kolb [facility] 7 14:54:52 Atypical chest pain 511973000 Active 2016 Elissa kolb [place] - [facility] 7 14:55:31 Dyslipidemi a 691018352 Active 2016 Elissa kolb [facility] 7 14:55:41 Hypercholes terolemia 60495205 Active 2016 Elissa kolb [place] - [facility] 7 14:56:07 Tachycardia 7174087 Active 2016 Adan kolb [facility] 7 13:42:11 Pain in bilateral legs 4306223682275 9108 Active [address] [facility] 8 14:26:05 Dizziness 828727088 Active [address] [facility] 8 18:15:46 Edema of lower extremity 205413430 Active [address] [facility] 9 12:16:31 Aortic valve regurgitati on 08969122 Active 2021 [address] [facility] 2 16:09:41 Coronary arterioscle rosis 00207250 Active [address] [facility] 2 17:36:49 Pre-surgery evaluation Active 2021 [address] [facility] 2 17:51:16 Problem Notes None recorded. Procedures Surgical History Date Name Laterality Status Provider Name and Address Organization Details Recorded Time Hysterectomy completed [facility] 06/16/2017 16:39:23 Back Surgery completed [facility] 06/16/2017 16:39:34 Knee arthroscopy/surge ry completed [facility] 06/16/2017 16:39:53 Appendectomy completed [facility] 06/16/2017 16:40:10 Imaging Results None recorded. Procedure Notes None recorded. Medical Equipment None Reported. Allergies Allergen ID Allergen Name Allergen Category Reaction Reaction Severity Criticality Documentation Date Start Date Code Code System Note Provider Name and Address Organization Details Recorded Time 60407 lisinopri l medicatio n confusion Not available unabletoasse 01/05/2023 42089 RxNorm Adan Dobbins [facility] 3 14:28:45 5287 prochlorp erazine medicatio n Not available Not available Not available 07/03/2017 8704 RxNorm Elissa Mcnair [facility] 7 14:54:13 Medications Name Sig Start [...] e 50 mcg/actua tion nasal spray,shoshana pension [place] 1 spray twice a day by intranas [...] Updated DateTime 3 170.18 cm 32 kg/m2 27922.8 4 g 74 /min 16 /min 96 % 96 % 122/82 mm[Hg] Ministerio PHILLIPS - [facility] 3 11:48:12 Date Recorded Body height Body mass index (BMI) Body weight Heart rate Respiratory rate Oxygen saturation Oxygen saturation in Arterial blood by Pulse oximetry Systolic And Diastolic Provider Name and Address Organization Details Last Updated DateTime 3 170.18 cm 29.6 kg/m2 00851.9 6 g 91 /min 16 /min 97 % 97 % 124/82 mm[Hg] Ministerio Arrieta [facility] 3 14:08:15 Date Recorded Body height Body mass index (BMI) Body weight Oxygen saturation Oxygen saturation in Arterial blood by Pulse oximetry Systolic And Diastolic Provider Name and Address Organization Details Last Updated DateTime 2 170.18 cm 34.9 kg/m2 523043. 1 g 99 % 99 % 122/78 mm[Hg] Ministerio Arrieta [facility] 2 11:02:47 Date Recorded Heart rate Provider Name an d Address Organization Details Last Updated DateTime 02/03/2022 81 /min Adan Dobbins [facility] 02/03/2022 11:45:58 Date Recorded Body height Body mass index (BMI) Body weight Heart rate Oxygen saturation Oxygen saturation in Arterial blood by Pulse oximetry Systolic And Diastolic Provider Name and Address Organization Details Last Updated DateTime 2 170.18 cm 36 kg/m2 863515. 25 g 100 /min 94 % 94 % 122/76 mm[Hg] Ministerio Arrieta [facility] 2 15:45:20 Date Recorded Body height Body mass index (BMI) Body weight Heart rate Respiratory rate Oxygen saturation Oxygen saturation in Arterial blood by Pulse oximetry Systolic And Diastolic Provider Name and Address Organization Details Last Updated DateTime 2 170.18 cm 36.8 kg/m2 470796. 21 g 89 /min 16 /min 95 % 95 % 120/72 mm[Hg] Ministerio Arrieta [facility] 2 14:26:37 Social History Question Answer Notes LastModified by Organizat ion Details LastModified Time Tobacco Smoking Status Former Smoker Not Available [facility] 07/22/2020 03:30:40 What Type Of Diet Are You Following? REGULAR [id number] Information not available 07/22/2020 What Was The Date Of Your Most Recent Tobacco Screening? 11/08/2018 [id number] Information not available 07/22/2020 Sex: Unknown Functional Status Question Answer Note LastModified by Organization D etails LastModified Time What is your level of alcohol consumption? None [id number] Information not available 07/22/2020 Mental Status None [...] available 06/16 16:46:07 Mother Myocardial infarction 46 [email or web address] Not available 06/16 17:50:10 Medical History Condition Response Diabetes Y Hyperlipidemia Y Hypertension Y Depression Y Gynecological HistoryNo gynecological history recorded. Obstetrics History GPAL:G 0 P 0 0 0 0 Past Encounters Encounter ID Performer Location Encounter Start Date Encounter Closed Date Diagnosis/Indication Diagnosis SNOMED-CT Code Diagnosis ICD10 Code Diagnosis IMO Codes Diagnosis Note [id number] [facility] [address] [place] [address] [place], [place] [address] [address] 06/16/2017 16:32:06 06/17/2017 13:04:31 Chest pain 58673128 R07.9 Atypical. Stable. May be related to increased BP. Had echo 06/14/17: normal LV systolic function, mild LVH, EF 57%, mild AI. Had exercise nuclear test 06/14/17: below average exercise capacity, no ischemia, LVEF >70%. Diabetes mellitus 099300 09 E11.59 Discussed importance of tight glycemic control to minimize cardiovasc ular disease progressio n. Essential hypertension 00579313 I10 Newly diagnosed. Patient's blood pressure is [...] Began metoprolol succinate 50 mg qd 06/16/17. [id number] Adan D[address] MD [address] OFF[facility] [address] [place] [address] 07/04/2017 12:07:40 07/05/2017 09:37:07 Essential hypertension 74586944 I10 Newly diagnosed. Patient's blood pressure is [...] control with elevated resting HR. Chest pain 45425922 R07. 9 Atypical. Improved. May be related to increased BP. Had echo 06/14/17: normal LV systolic function, mild LVH, EF 57%, mild AI. Had exercise nuclear test 06/14/17: below average exercise capacity, no ischemia, LVEF >70%. Diabetes mellitus 603910 09 E11.59 Discussed importance of tight glycemic control to minimize cardiovasc ular disease progressio n. Hypercholesterolemia 136 31098 E78.2 Needs to keep LDL less than 70, and HDL more than 40. Began atorvastat in 20 mg qHS 07/04/17. FLP 4 wks. Tachycardia 3222374 R00. 0 Follow on metoprolol . Obtain TSH. D-dimer normal 06/14/17. [id number] Adan Dobbins MD [address] OFF[facility] [place] [address] 08/15/2017 11:58:15 08/16/2017 10:27:57 Essential hypertension 37056522 I10 Newly diagnosed. Pt reports elevated BP [...] amlodipine 5 mg qd 08/15/17. Chest pain 19111624 R07. 9 Atypical. Intermitte nt and nonexertio nal. May be related to increased BP. Had echo 06/14/17: normal LV systolic function, mild LVH, EF 57%, mild AI. Had exercise nuclear test 06/14/17: below average exercise capacity, no ischemia, LVEF >70%. Hypercholesterolemia 136 63729 E78.2 Needs to keep LDL less than 70, and HDL more than 40. Began atorvastat in 20 mg qHS 07/04/17. FLP 4 wks. later with LDL 68. Diabetes mellitus 757238 E11.59 Discussed importance of tight glycemic control to minimize cardiovasc ular disease progressio n. Tachycardia 8078732 R00. 0 Improved on metoprolol . Obtain TSH. D-dimer normal 06/14/17. [id number] Adan Dobbins MD [address] OFF[facility] [address] [place] [address] 09/07/2017 14:31:18 09/08/2017 12:52:38 Essential hypertension 17547102 I10 Newly diagnosed. Patient's blood pressure is [...] amlodipine 10 mg qd 09/07/17. Chest pain 58746879 R07. 9 Atypical. Improved. Intermitte nt and nonexertio nal. May be related to increased BP. Had echo 06/14/17: normal LV systolic function, mild LVH, EF 57%, mild AI. Had exercise nuclear test 06/14/17: below average exercise capacity, no ischemia, LVEF >70%. Hypercholesterolemia 136 90924 E78.2 Needs to keep LDL less than 70, and HDL more than 40. Began atorvastat in 20 mg qHS 07/04/17. FLP 4 wks. later with LDL 68. Diabetes mellitus 489597 E11.59 Discussed importance of tight glycemic control to minimize cardiovasc ular disease progressio n. Follows with endo. Tachycardia 8692872 R00. 0 Improved on metoprolol . Obtained TSH 2.42, normal, 08/19/17. D-dimer normal 06/14/17. [id number] Adan Dobbins MD [facility] Office [address] [place] [address] 10/18/2017 12:51:02 10/18/2017 14:59:51 Essential hypertension 29681715 I10 Newly diagnosed. Patient's blood pressure is [...] qd 10/18/17. BMP/Mg in 3wks. Chest pain 57784283 R07. 9 Atypical. Improved. Intermitte nt and nonexertio nal. May be related to increased BP. Had echo 06/14/17: normal LV systolic function, mild LVH, EF 57%, mild AI. Had exercise nuclear test 06/14/17: below average exercise capacity, no ischemia, LVEF >70%. Hypercholesterolemia 136 65407 E78.2 Needs to keep LDL less than 70, and HDL more than 40. Began atorvastat in 20 mg qHS 07/04/17. FLP 4 wks. later with LDL 68. Diabetes mellitus 663787 09 E11.59 Discussed importance of tight glycemic control to minimize cardiovasc ular disease progressio n. Follows with endo. Tachycardia 0529394 R00. 0 Improved on metoprolol . Obtained TSH 2.42, normal, 08/19/17. D-dimer normal 06/14/17. Pain in bi lateral legs 5874001254 1113835 M79.604 Obtain ABIs. [id number] Adan Dobbins MD [address] OFF[facility] [address] [place] [address] 12/05/2017 12:29:25 12/13/2017 09:36:55 Essential hypertension 49956193 I10 Newly diagnosed. Patient's blood pressure is [...] at 1.4. Began MgOxide daily. Chest pain 47608159 R07. 9 Atypical. Improved. Intermitte nt and non-exerti onal. May be related to increased BP. Had echo 06/14/17: normal LV systolic function, mild LVH, EF 57%, mild AI. Had exercise nuclear test 06/14/17: below average exercise capacity, no ischemia, LVEF >70%. Hypercholesterolemia 136 39100 E78.2 Needs to keep LDL less than 70, and HDL more than 40. Began Atorvastat in 20 mg qHS 07/04/17. LDL 68 08/08/17. Diabetes mellitus 292075 09 E11.59 Discussed importance of tight glycemic control to minimize cardiovasc ular disease progressio n. Follows with endo. Tachycardia 5702780 R00. 0 Improved but intermitte nt palpitatio ns on Metoprolol . Obtained TSH 2.42, normal, 08/19/17. D-dimer normal 06/14/17. Pain in bi lateral legs 4628406413 5845434 M79.604 Had Normal ankle-brac hial index done in 10/26/17. Palpitations 87824203 R0 0.2 Obtain 24 hr Holter monitor to rule out arrhythmia . Had low Mg 1.4 11/18/17.Beg an Mg Oxide 400mg qd 12/05/17. Had 08/19/17 TSH 2.420. [id number] Adan Dobbins MD [address] OFF[facility] [place] [address] 01/16/2018 16:11:38 01/17/2018 13:04:24 Essential hypertension 70703724 I10 Newly diagnosed. Patient's blood pressure is [...] at 1.4. Began MgOxide daily 11/2017. Palpitations 75141483 R0 0.2 Less frequent but still symptomati c since began Mg Oxide. Obtain Cardea Monitor for 7 days to rule out arrhythmia . Had low Mg 1.4 11/18/17. Began Mg Oxide 400 mg qd 12/05/17. Had 08/19/17 TSH 2.420. Chest pain 16140328 R07. 9 Atypical. Improved. Intermitte nt and non-exerti onal. May be related to increased BP. Had echo 06/14/17: normal LV systolic function, mild LVH, EF 57%, mild AI. Had exercise nuclear test 06/14/17: below average exercise capacity, no ischemia, LVEF >70%. Hypercholesterolemia 136 23223 E78.2 Needs to keep LDL less than 70, and HDL more than 40. Began Atorvastat in 20 mg qHS 07/04/17. LDL 68 08/08/17. Diabetes mellitus 795469 09 E11.59 Discussed importance of tight glycemic control to minimize cardiovasc ular disease progressio n. Follows with endo. Tachycardia 9171598 R00. 0 Improved but intermitte nt palpitatio ns on Metoprolol . Obtained TSH 2.42, normal, 08/19/17. D-dimer normal 06/14/17. Pain in bi lateral legs 0730464720 3722687 M79.604 Had Normal ankle-brac hial index done in 10/26/17. [id number] Adan Dobbins MD [address] [facility] [place] [address] 01/23/2018 16:55:19 01/24/2018 13:43:48 Essential hypertension 17932768 I10 Newly diagnosed. Patient's blood pressure is [...] reflux study if LE edema recurs. Palpitations 34662600 R0 0.2 Less frequent but still symptomati c since began Mg Oxide. Obtain Cardea Monitor for 7 days to rule out arrhythmia . Had low Mg 1.4 on 11/18/17. Began Mg Oxide 400 mg qd 12/05/17. Had 08/19/17 TSH 2.420. Chest pain 84740692 R07. 9 Atypical. Improved. Intermitte nt and non-exerti onal. May be related to increased BP. Had echo 06/14/17: normal LV systolic function, mild LVH, EF 57%, mild AI. Had exercise nuclear test 06/14/17: below average exercise capacity, no ischemia, LVEF >70%. Hypercholesterolemia 136 18620 E78.2 Needs to keep LDL less than 70, and HDL more than 40. Began Atorvastat in 20 mg qHS 07/04/17. LDL 68 on 08/08/17. Diabetes mellitus 699416 09 E11.59 Discussed importance of tight glycemic control to minimize cardiovasc ular disease progressio n. Follows with endo. Tachycardia 9755751 R00. 0 Improved but intermitte nt palpitatio ns on Metoprolol . Obtained TSH 2.42, normal, 08/19/17. D-dimer normal 06/14/17. Pain in bi lateral legs 4681990251 1959622 M79.604 Had Normal ankle-brac hial index done in 10/26/17. Edema of l ower extremity 220870592 R60.0 Improved. Started on HCTZ 12.5 mg 01/20/18. Had negative Venous Doppler for DVT on 01/20/18. [id number] Adan Dobbins MD [address] OFF[address] [place] [address] 02/15/2018 16:48:28 02/15/2018 19:04:08 Essential hypertension 47152743 I10 Patient's blood pressure is well-contr olled [...] reflux study if LE edema recurs. Palpitations 57265853 R0 0.2 Less frequent but still symptomati [...] 1.5. Had 08/19/17 TSH 2.420. Chest pain 38598954 R07. 9 Atypical. Improved. Intermitte nt and non-exerti onal. Had echo 06/14/17: normal LV systolic function, mild LVH, EF 57%, mild AI. Had exercise nuclear test 06/14/17: below average exercise capacity, no ischemia, LVEF >70%. Hypercholesterolemia 136 68700 E78.2 Needs to keep LDL less than 70, and HDL more than 40. Began Atorvastat in 20 mg qHS 07/04/17. LDL 68 on 08/08/17. Diabetes mellitus 401920 09 E11.59 Discussed importance of tight glycemic control to minimize cardiovasc ular disease progressio n. Follows with endo. Tachycardia 0321546 R00. 0 Improved but intermitte nt palpitatio ns on Metoprolol . Obtained TSH 2.42, normal, 08/19/17. D-dimer normal 06/14/17. Pain in bi lateral legs 0140772118 4104629 M79.604 Had Normal ankle-brac hial index done in 10/26/17. Edema of l ower extremity 023360520 R60.0 Improved. Started on HCTZ 12.5 mg 01/20/18 with resolution of edema but with increased Cr, prompting cessation of hydrochlor othiazide Feb 15 2018. Had negative Venous Doppler for DVT on 01/20/18. Dizziness 257167162 R42 Obtain carotid U/S. Stopped HCTZ given increased BUN and Cr. [id number] David Hancock MD [address] OFF[address] [place] [address] 03/15/2018 16:30:20 03/23/2018 18:34:33 Essential hypertension 58893491 I10 Patient's blood pressure is well-contr olled [...] reflux study if LE edema recurs. Palpitations 73036708 R0 0.2 Less frequent but still symptomati [...] 1.5. Had 08/19/17 TSH 2.420. Chest pain 83292088 R07. 9 Atypical. Improved. Intermitte nt and non-exerti onal. Had echo 06/14/17: normal LV systolic function, mild LVH, EF 57%, mild AI. Had exercise nuclear test 06/14/17: below average exercise capacity, no ischemia, LVEF >70%. Hypercholesterolemia 136 33187 E78.2 Needs to keep LDL less than 70, and HDL more than 40. Began Atorvastat in 20 mg qHS 07/04/17. LDL 68 on 08/08/17. Diabetes mellitus 905937 09 E11.59 Discussed importance of tight glycemic control to minimize cardiovasc ular disease progressio n. Follows with endo. Tachycardia 3424786 R00. 0 Improved but intermitte nt palpitatio ns on Metoprolol . Obtained TSH 2.42, normal, 08/19/17. D-dimer normal 06/14/17. Pain in bi lateral legs 6572109951 0992838 M79.604 Had Normal ankle-brac hial index done in 10/26/17. Edema of l ower extremity 275274628 R60.0 Improved. Started on HCTZ 12.5 mg 01/20/18 with resolution of edema but with increased Cr, prompting cessation of hydrochlor othiazide Feb 15 2018. Had negative Venous Doppler for DVT on 01/20/18. Dizziness 032229592 R42 Obtain carotid U/S. Stopped HCTZ given increased BUN and Cr. [id number] David Hancock MD [address] OFF[facility] [address] [place] [address] 05/29/2018 10:46:20 06/13/2018 02:43:29 Essential hypertension 26645393 I10 Patient's blood pressure is well-contr olled [...] reflux study if LE edema recurs. Palpitations 12299721 R0 0.2 More frequent the last 1 [...] 1.5. Had 05/25/18 TSH 2.330 Chest pain 60047540 R07. 9 Atypical. Improved. Intermitte nt and non-exerti onal. Had echo 06/14/17: normal LV systolic function, mild LVH, EF 57%, mild AI. Had exercise nuclear test 06/14/17: below average exercise capacity, no ischemia, LVEF >70%. Hypercholesterolemia 136 00173 E78.2 Needs to keep LDL less than 70, and HDL more than 40. Began Atorvastat in 20 mg qHS 07/04/17. Increased Atorvastat in to 40 mg once daily 05/29/18. LDL was 131 on 05/25/18 Will start Fish Oil 1000 mg twice daily for TG 258. Diabetes mellitus 128797 09 E11.59 Discussed importance of tight glycemic control to minimize cardiovasc ular disease progressio n. Follows with endo. Tachycardia 5036707 R00. 0 Improved but intermitte nt palpitatio ns on Metoprolol 200 mg qd. Had 05/25/18 TSH 2.330. Pain in bi lateral legs 2748632403 7587368 M79.604 Had Normal ankle-brac hial index done in 10/26/17. Edema of l ower extremity [id number] R60.0 Improved. Started on HCTZ 12.5 mg 01/20/18 with resolution of edema but with increased Cr, prompting cessation of hydrochlor othiazide Feb 15 2018. Had negative Venous Doppler for DVT on 01/20/18. Dizziness 237998964 R42 Intermitte nt. Had Carotid US on 02/22/18 showing mild bilateral internal carotid artery stenosis with less than 60% diameter stenosis. Stopped HCTZ given increased BUN and Cr. Anxiety 45465504 F41.9 History of anxiety and currently going [...] agrees with the plan. All questions answered. [id number] David [address] MD [address] [facility] [place] [address] 07/04/2018 15:00:24 07/04/2018 15:33:37 Essential hypertension 96127624 I10 Well controlled today. Is not taking her medication s as prescribed . She stopped taking her medication s 1 week ago, Amlodipine 5 mg, Lisinopril 10 mg, Metoprolol 200 mg qd and Magnesium Oxide. Palpitations 20737933 R0 0.2 less frequent. Had Power Assure 7 day monitor 01/23/2018 which demonstrat ed [...] TSH 2.330 07/06 stopped MagOxide Chest pain 90340506 R07. 9 Atypical. Improved. Intermitte nt and non-exerti onal. Had echo 06/14/17: normal LV systolic function, mild LVH, EF 57%, mild AI. Had exercise nuclear test 06/14/17: below average exercise capacity, no ischemia, LVEF >70%. Tachycardia 1908766 R00. 0 Improved but intermitte nt palpitatio ns on Metoprolol 200 mg qd. Had 05/25/18 TSH 2.330. Hypercholesterolemia 136 75512 E78.2 Needs to keep LDL less than 70, and HDL more than 40. Began Atorvastat in 20 mg qHS 07/04/17. Increased Atorvastat in to 40 mg once daily 05/29/18. LDL was 131 on 05/25/18 Will start Fish Oil 1000 mg twice daily for TG 258. Will repeat FLP before next visit. Diabetes mellitus 969509 09 E11.59 Discussed importance of tight glycemic control to minimize cardiovasc ular disease progressio n. Follows with endo. Pain in bi lateral legs [id number] M79.604 Had Normal ankle-brac hial index done in 10/26/17. Edema of l anjuer extremity 995413957 R60.0 Improved. Started on HCTZ 12.5 mg 01/20/18 with resolution of edema but with increased Cr, prompting cessation of hydrochlor othiazide Feb 15 2018. Had negative Venous Doppler for DVT on 01/20/18. Dizziness 175763360 R42 Intermitte nt. Had Carotid US on 02/22/18 showing mild bilateral internal carotid artery stenosis with less than 60% diameter stenosis. Stopped HCTZ given increased BUN and Cr. Anxiety 73205698 F41.9 History of anxiety and currently going [...] agrees with the plan. All questions answered. [id number] Adan Dobbins MD [address] [facility] [place] [phone] 11/08/2018 15:21:24 11/08/2018 17:38:34 Essential hypertension [id number] I10 Well-contr olled today despite stopping all of her anti-hyper tensives on her own since 06/2018. She lost 23 lbs. since January 2018 and is more active. Is not taking her medication s as prescribed . She stopped taking her medication s 11/08/18: Amlodipine 5 mg, Lisinopril 10 mg, Metoprolol 200 mg qd and Magnesium Oxide. BP diary. Palpitations 20402986 R0 0.2 Less frequent. Had Cardea 7 [...] 1.5. Had 05/25/18 TSH 2.330 Chest pain 04288139 R07. 9 Atypical. Improved. Intermitte nt and non-exerti onal. Had echo 06/14/17: normal LV systolic function, mild LVH, EF 57%, mild AI. Had exercise nuclear test 06/14/17: below average exercise capacity, no ischemia, LVEF >70%. Tachycardia 1539128 R00. 0 Improved but intermitte nt palpitatio ns on Metoprolol 200 mg qd, which she self-disco ntinued. Had 05/25/18 TSH 2.330. Hypercholesterolemia 136 63787 E78.2 Needs to keep LDL less than 70, and HDL more than 40. Began Atorvastat in 20 mg qHS 07/04/17. Increased Atorvastat in to 40 mg once daily 05/29/18. LDL was 131 on 05/25/18 She stopped atorvastat in on her own 06/2018. Obtain FLP. Diabetes mellitus 569522 09 E11.59 Discussed importance of tight glycemic control to minimize cardiovasc ular disease progressio n. Follows with endo. Pain in bi lateral legs 3049133749 4360303 M79.604 Had Normal ankle-brac hial index done in 10/26/17. Edema of l ower extremity 596007011 R60.0 Improved. Started on HCTZ 12.5 mg 01/20/18 with resolution of edema but with increased Cr, prompting cessation of hydrochlor othiazide Feb 15 2018. Had poor liquid intake at that time. Had negative Venous Doppler for DVT on 01/20/18. Dizziness 728267197 R42 Intermitte nt. Improved. Had Carotid US on 02/22/18 showing mild bilateral internal carotid artery stenosis with less than 60% diameter stenosis. Needs repeat carotid U/S 02/2019. Stopped HCTZ given increased BUN and Cr. Anxiety 07976528 F41.9 Improved. History of anxiety and currently going through major life changes. [id number] Adan Dobbins MD [address] [facility] [place] [phone] 01/13/2022 14:02:40 01/13/2022 16:32:52 Essential hypertension 75186045 I10 Well-contr olled today despite stopping all of her anti-hyper tensives on her own since 06/2018. She lost 23 lbs. since January 2018 and is more active. Is not taking her medication s as prescribed . She stopped taking her medication s 11/08/18: Amlodipine 5 mg, Lisinopril 10 mg, Metoprolol 200 mg qd and Magnesium Oxide. BP diary. Palpitations 05184463 R0 0.2 Less frequent. Had Cardea 7 [...] 1.5. Had 05/25/18 TSH 2.330 Chest pain 00417649 R07. 9 Patient presents with chest pain [...] stress test normal, consider stopping ASA. Tachycardia 1616918 R00. 0 Improved but intermitte nt palpitatio ns on Metoprolol 200 mg qd, which she self-disco ntinued. Had 9/6/18 TSH 2.330. Hypercholesterolemia 136 89305 E78.2 Needs to keep LDL less than 70, and HDL more than 40. Began Atorvastat in 20 mg qHS 07/04/17. Increased Atorvastat in to 40 mg once daily 05/29/18. LDL was 131 on 05/25/18 She stopped atorvastat in on her own 06/2018. Obtain FLP. Diabetes mellitus 824885 09 E11.59 Discussed importance of tight glycemic control to minimize cardiovasc ular disease progressio n. Follows with endo. Pain in bi lateral legs 4600041566 1755171 M79.604 Had Normal ankle-brac hial index done in 10/26/17. Edema of l ower extremity 855779557 R60.0 Intermitte nt. Started on HCTZ 12.5 mg 01/20/18 with resolution of edema but with increased Cr, prompting cessation of hydrochlor othiazide Feb 15 2018. Had poor liquid intake at that time. Had negative Venous Doppler for DVT on 01/20/18. Elevate legs.Compr ession stockings. Low Na diet. Consider HCTZ pending labs. Dizziness 359525698 R42 Intermitte nt. Improved. Had Carotid US on 02/22/18 showing mild bilateral internal carotid artery stenosis with less than 60% diameter stenosis. Needs repeat carotid U/S. Anxiety 07816160 F41.9 Improved. History of anxiety and currently going through major life changes. Aortic edita ve regurgitation 25419402 I35.1 Mild. Had 06/14/17 ECHO: Normal left ventricula r systolic function , no local well motion abnormalit ies, normal left ventricula r size , mild concentric left ventricula r hypertroph y, normal left ventricula r diastolic function, EF 57%, Mild aortic valve regurgitat ion. Obtain echo to evaluate for structural /functiona l disease. [id number] Adan Dobbins MD [address] [facility] [place] [phone] 02/03/2022 10:46:00 02/03/2022 11:59:11 Aortic valve regurgitation 46447924 I35.1 Mild. Had 06/14/17 ECHO: Normal left ventricula r systolic function , no local well motion abnormalit ies, normal left ventricula r size , mild concentric left ventricula r hypertroph y, normal left ventricula r diastolic function, EF 57%, Mild aortic valve regurgitat ion. Obtain echo to evaluate for structural /functiona l disease. Essential hypertension 95675960 I10 Well-contr olled today despite stopping all of her anti-hyper tensives on her own since 06/2018. She lost 23 lbs. since January 2018 and is more active. Is not taking her medication s as prescribed . She stopped taking her medication s 11/08/18: Amlodipine 5 mg, Lisinopril 10 mg, Metoprolol 200 mg qd and Magnesium Oxide. BP diary. Dizziness 979522658 R42 Intermitte nt. Improved. Had Carotid US on 02/22/18 showing mild bilateral internal carotid artery stenosis with less than 60% diameter stenosis. Needs repeat carotid U/S. Pain in bi lateral legs [id number] 2793803 M79.604 Had Normal ankle-brac hial index done in 10/26/17. Tachycardia 7293757 R00. 0 Improved but intermitte nt palpitatio ns on Metoprolol 200 mg qd, which she self-disco ntinued. Had 05/25/18 TSH 2.330. Anxiety 73858099 F41.9 Improved. History of anxiety and currently going through major life changes. Diabetes mellitus 447640 09 E11.59 Discussed importance of tight glycemic control to minimize cardiovasc ular disease progressio n. Follows with endo. Edema of l ower extremity 896593056 R60.0 Intermitte nt. Minimal. Started on HCTZ 12.5 mg 01/20/18 with resolution of edema but with increased Cr, prompting cessation of hydrochlor othiazide Feb 15 2018. Had poor liquid intake at that time. Had negative Venous Doppler for DVT on 01/20/18. Elevate legs.Compr ession stockings. Low Na diet. Consider HCTZ if edema increases. History of obesity 85493 3001 Z91.89 20 lb. weight loss recommende d over the next 2 months. Hypercholesterolemia 136 97441 E78.2 Needs to keep LDL less than [...] gm bid 02/03/22. Atypical chest pain 1025 16905 R07.89 Patient presents with chest pain with [...] . The patient agrees to proceed at [facility]. Had echo 06/14/17: normal LV systolic function, mild LVH, EF 57%, mild AI. Had exercise nuclear test 06/14/17: below average exercise capacity, no ischemia, LVEF >70%. Had 01/20/22 CMP-NA 138 K 4.0 CR 1.08 GL 106 CA 8.7 MAG 1.7 LIPID-TRIG 438 CHOL 265 LDL 137 HDL 39 CBC-WBC 8.9 RBC 4.32 HGB 13.8 HCT 39.3 PLT 234 Palpitations 56315275 R0 0.2 Less frequent. Had Cardea 7 [...] mg qd 12/05/17. Had 05/25/18 TSH 2.330 [id number] Adan Dobbins MD [facility] [address] [place] [address] 03/03/2022 15:38:56 03/03/2022 18:05:44 Aortic valve regurgitation 75302822 I35.1 Mild previously . Had US, echocardio [...] Mild aortic valve regurgitat ion. Essential hypertension 75078197 I10 Well-contr olled today despite stopping all of her anti-hyper tensives on her own since 06/2018. She lost 23 lbs. since January 2018 and is more active. Is not taking her medication s as prescribed . She stopped taking her medication s 11/08/18: Amlodipine 5 mg, Lisinopril 10 mg, Metoprolol 200 mg qd and Magnesium Oxide. BP diary. Dizziness 439404565 R42 Intermitte nt. Improved. Had US, carotid artery ( 2) Antegrade flow noted in both vertebral arteries. Mild bilateral internal carotid artery stenosis with less than 50% diameter stenosis. Had Carotid US on 02/22/18 showing mild bilateral internal carotid artery stenosis with less than 60% diameter stenosis. Needs repeat carotid U/S 02/2023. Pain in bi lateral legs 7001671194 6903677 M79.604 Had Normal ankle-brac hial index done in 10/26/17. Tachycardia 6177735 R00. 0 Improved but intermitte nt palpitatio ns on Metoprolol 200 mg qd, which she self-disco ntinued. Had 05/25/18 TSH 2.330. Anxiety 42123550 F41.9 Improved. History of anxiety and currently going through major life changes. Diabetes mellitus 356910 09 E11.59 Discussed importance of tight glycemic control to minimize cardiovasc ular disease progressio n. Follows with endo. Edema of l ower extremity 720212529 R60.0 Intermitte nt. Minimal. Started on HCTZ 12.5 mg 01/20/18 with resolution of edema but with increased Cr, prompting cessation of hydrochlor othiazide Feb 15 2018. Had poor liquid intake at that time. Had negative Venous Doppler for DVT on 01/20/18. Elevate legs.Compr ession stockings. Low Na diet. Consider HCTZ if edema increases. History of obesity 76397 3001 Z91.89 20 lb. weight loss recommende d over the next 2 months. Hypercholesterolemia 136 08455 E78.2 Needs to keep LDL less than [...] FLP 1 mo. Atypical chest pain 1025 20104 R07.89 Patient presents with chest pain with [...] HGB 13.8 HCT 39.3 PLT 234 Palpitations 29279236 R0 0.2 Less frequent. Had Power Assure 7 day monitor 01/23/2018 which demonstrat ed [...] 12/05/17. Had 05/25/18 TSH 2.330 Coronary arteriosclerosis 65279759 I25.10 Mild-moder ate CAD. Had [facility] 02/18/22: mild to moderate CAD (40% stenosis mid LCx, LAD and RCA no significan t disease, RCA non-domina nt), normal LV systolic function, normal LVEDP. Continue ASA. Needs to keep LDL less than 70, and HDL more than 40. Pre-surger y evaluation 622733597 Z01.818 There is no cardiac contraindi cation for the procedure. The planned procedure would be within acceptable risk. Patient may stop taking aspirin five (5) days prior to the procedure. [id number] Adan Dobbins MD [address] [facility] [facility] [place] [address] 05/05/2022 14:17:27 05/05/2022 15:27:04 Aortic valve regurgitation 82483761 I35.1 Mild previously . Had US, echocardio [...] Mild aortic valve regurgitat ion. Essential hypertension 83346667 I10 Well-contr olled with diet today despite [...] Oxide. BP diary. Obtain BMP, Mg. Dizziness 989070054 R42 Intermitte nt. Postural. Had US, carotid artery ( 2) Antegrade flow noted in both vertebral arteries. Mild bilateral internal carotid artery stenosis with less than 50% diameter stenosis. Had Carotid US on 02/22/18 showing mild bilateral internal carotid artery stenosis with less than 60% diameter stenosis. Needs repeat carotid U/S 02/2023. Pain in bi lateral legs [id number] 8730804 M79.604 Had Normal ankle-brac hial index done in 10/26/17. Tachycardia 7041263 R00. 0 Improved but intermitte nt palpitatio ns on Metoprolol 200 mg qd, which she self-disco ntinued. Had 05/25/18 TSH 2.330. Anxiety 05340267 F41.9 Improved. History of anxiety and currently going through major life changes. Diabetes mellitus 101007 09 E11.59 Discussed importance of tight glycemic control to minimize cardiovasc ular disease progressio n. Follows with endo. Edema of l ower extremity 217362788 R60.0 Intermitte nt. Minimal. Started on HCTZ 12.5 mg 01/20/18 with resolution of edema but with increased Cr, prompting cessation of hydrochlor othiazide Feb 15 2018. Had poor liquid intake at that time. Had negative Venous Doppler for DVT on 01/20/18. Elevate legs.Compr ession stockings. Low Na diet. Consider HCTZ if edema increases. History of obesity 12890 3001 Z91.89 20 lb. weight loss recommende d over the next 2 months. Hypercholesterolemia 136 89212 E78.2 Needs to keep LDL less than [...] CPK 72 normal. Atypical chest pain 1025 41478 R07.89 Patient presents with chest pain with atypical features and exertional dyspnea which can be an anginal equivalent , improved. Had exercise nuclear stress test 01/26/22: positive for ischemia, with reversible defect consistent with ischemia in [place]ura[place]ain[place] area (new compared with 06/14/17).H ad [facility] 02/18/22: mild to moderate CAD (40% [...] 13.8 HCT 39.3 PLT 234 Coronary arteriosclerosis 27193916 I25.10 Mild-moder ate CAD. Had [facility] 02/18/22: mild to moderate CAD (40% stenosis mid LCx, LAD and RCA no significan t disease, RCA non-domina nt), normal LV systolic function, normal LVEDP. Continue ASA. Needs to keep LDL less than 70, and HDL more than 40. Palpitations 68966385 R0 0.2 Resolved. Had Cardea 7 day [...] 152 CA 9.0 MAG 1.6 CK 72 [id number] Adan Dobbins MD [address] [facility] [place] [address] 10/27/2022 11:20:27 10/27/2022 12:56:22 Aortic valve regurgitation 91975351 I35.1 Mild previously . Had US, echocardio [...] Mild aortic valve regurgitat ion. Essential hypertension 13199208 I10 Well-contr olled with diet today despite [...] BP diary. Obtain BMP, Mg, drawn at [facility]. 10/25/22. Dizziness 724274749 R42 Intermitte nt. Postural. Had US, carotid artery ( 2) Antegrade flow noted in both vertebral arteries. Mild bilateral internal carotid artery stenosis with less than 50% diameter stenosis. Had Carotid US on 02/22/18 showing mild bilateral internal carotid artery stenosis with less than 60% diameter stenosis. Needs repeat carotid U/S 01/2023. Pain in bi lateral legs 9467577870 1591451 M79.604 Had Normal ankle-brac hial index done in 10/26/17. Tachycardia 6353031 R00. 0 Improved but intermitte nt palpitatio ns on Metoprolol 200 mg qd, which she self-disco ntinued. Had 05/25/18 TSH 2.330. Anxiety 69469150 F41.9 Improved. History of anxiety and currently going through major life changes. Diabetes mellitus 941392 09 E11.59 Discussed importance of tight glycemic control to minimize cardiovasc ular disease progressio n. Follows with endo. Edema of l ower extremity 732031455 R60.0 Intermitte nt. Minimal. Started on HCTZ 12.5 mg 01/20/18 with resolution of edema but with increased Cr, prompting cessation of hydrochlor othiazide Feb 15 2018. Had poor liquid intake at that time. Had negative Venous Doppler for DVT on 01/20/18. Elevate legs.Compr ession stockings. Low Na diet. Consider HCTZ if edema increases. Obtain labs 10/25/21 [facility]. History of obesity 13657 3001 Z91.89 20 lb. weight loss recommende d over the next 2 months. Hypercholesterolemia 136 38834 E78.2 Needs to keep LDL less than [...] CPK 72 normal. Atypical chest pain 1025 38526 R07.89 Patient presents with chest pain with atypical features and exertional dyspnea which can be an anginal equivalent , improved. Had exercise nuclear stress test 01/26/22: positive for ischemia, with reversible defect consistent with ischemia in [place] area (new compared with 06/14/17).H ad [facility] 02/18/22: mild to moderate CAD (40% [...] 13.8 HCT 39.3 PLT 234 Coronary arteriosclerosis 26340845 I25.10 Mild-moder ate CAD. Had [facility] 02/18/22: mild to moderate CAD (40% stenosis mid LCx, LAD and RCA no significan t disease, RCA non-domina nt), normal LV systolic function, normal LVEDP. Continue ASA. Needs to keep LDL less than 70, and HDL more than 40. Palpitations 10261616 R0 0.2 Resolved. Had Cardea 7 day [...] MAG 1.6 CK 72 Pre-surger y evaluation 536758081 Z01.818 There is no cardiac contraindi cation for the procedure. The planned procedure would be within acceptable risk. Patient may stop taking aspirin five (5) days prior to the procedure. [id number] Adan Dobbins MD [address] [place] [address] 01/05/2023 14:00:47 01/05/2023 14:46:55 Aortic valve regurgitation 34672910 I35.1 Mild previously . Had US, echocardio [...] regurgitat ion. Obtain echo 03/2023. Essential hypertension 40057205 I10 Well-contr olled with diet today despite [...] CR 1.12 GL 177 CA 9.0 Dizziness 492259150 R42 Intermitte nt. Postural. Had US, carotid artery ( 2) Antegrade flow noted in both vertebral arteries. Mild bilateral internal carotid artery stenosis with less than 50% diameter stenosis. Had Carotid US on 02/22/18 showing mild bilateral internal carotid artery stenosis with less than 60% diameter stenosis. Needs repeat carotid U/S 02/2023. Pain in bi lateral legs 4782743754 9071873 M79.604 Had Normal ankle-brac hial index done in 10/26/17. Tachycardia 6849607 R00. 0 Improved but intermitte nt palpitatio ns on Metoprolol 200 mg qd, which she self-disco ntinued. Had 05/25/18 TSH 2.330. Anxiety 78680716 F41.9 Improved. History of anxiety and currently going through major life changes. Diabetes mellitus 563092 09 E11.59 Discussed importance of tight glycemic control to minimize cardiovasc ular disease alen n. Follows with endo. Edema of l ower extremity 646004782 R60.0 Intermitte nt. Minimal. Started on HCTZ 12.5 mg 01/20/18 with resolution of edema but with increased Cr, prompting cessation of hydrochlor othiazide Feb 15 2018. Had poor liquid intake at that time. Had negative Venous Doppler for DVT on 01/20/18. Elevate legs.Compr ession stockings. Low Na diet. Consider HCTZ if edema increases. History of obesity 18038 3001 Z91.89 20 lb. weight loss recommende d over the next 2 months. Hypercholesterolemia 136 20576 E78.2 Needs to keep LDL less than [...] Mg, TSH, CBC. Atypical chest pain 1025 43222 R07.89 Resolved. Had exercise nuclear stress test [...] 13.8 HCT 39.3 PLT 234 Coronary arteriosclerosis 74827554 I25.10 Mild-moder ate CAD. Had [facility] 02/18/22: mild to moderate CAD (40% stenosis mid LCx, LAD and RCA no significan t disease, RCA non-domina nt), normal LV systolic function, normal LVEDP. Continue ASA. Intolerant of lisinopril with altered mental status. Needs to keep LDL less than 70, and HDL more than 40. Palpitations 78558429 R0 0.2 Resolved. Had Cardea 7 day [...] Member ID Guo Member ID Guarantor Name 05/03/2025 1 [id number] Niles Croft [id number] 1 Niles Croft Notes Date Note Type [...] She is having R ankle surgery at [facility] in [facility] with Dr. Phillips, date pending. Reports home [...] related. She had fasting blood work at [place] on 05/25/18 which was all WNL except [...] >70%. Had normal [place] on 10/21/17. Had Power Assure 7 day monitor 01/23/2018 which demonstrated normal [...] She is having R ankle surgery at [facility] in [facility] with Dr. Phillips, date pending. Reports home [...] related. She had fasting blood work at [place] on 05/25/18 which was all WNL except [...] correlated with normal sinus rhythm. Adan kolb [place] - [facility] 02/03/2022 11:48:28 03/03/2022 text/html 03/03/22 CC: Chest pain 51 year-old woman with history of HTN, aortic valve regurgitation, obesity, diabetes mellitus, CKD, family history of CAD, former tobacco use (quit 05/2016), anxiety, depression, is seen in cardiac consultation for chest pain. She was last in the office 4 weeks ago. Had [facility] 02/18/22: mild to moderate CAD (40% stenosis mid LCx, LAD and RCA no significant disease, RCA non-dominant), normal LV systolic function, normal LVEDP. She is having R ankle surgery at [facility] in [facility] with Dr. Phillips, date pending. Reports home [...] related. She had fasting blood work at [place] on 05/25/18 which was all WNL except [...] >70%. Had normal [place]HELSEA on 10/21/17. Had Power Assure 7 day monitor 01/23/2018 which demonstrated normal [...] events correlated with normal sinus rhythm. Had [facility] 02/18/22: mild to moderate CAD (40% stenosis mid LCx, LAD and RCA no significant disease, RCA non-dominant), normal LV systolic function, normal LVEDP. Adan Dobbins [place], [place] - [facility] 03/03/2022 17:58:07 05/05/2022 text/html 05/05/22 CC: Chest pain 51 year-old woman with history of CAD, carotid artery stenosis, HTN, aortic valve regurgitation, obesity, diabetes mellitus, CKD, family history of CAD, former tobacco use (quit 05/2016), anxiety, depression, is seen in cardiac consultation for chest pain. She was last in the office 8 weeks ago. Had [facility] 02/18/22: mild to moderate CAD (40% stenosis mid LCx, LAD and RCA no significant disease, RCA non-dominant), normal LV systolic function, normal LVEDP. She had R ankle surgery at [facility] in [facility] with Dr. Phillips 03/2022. Reports home BP [...] related. She had fasting blood work at [place] on 05/25/18 which was all WNL except [...] LV systolic function, normal LVEDP. Adan Dobbins [facility], [place] - [facility] 05/05/2022 15:19:25 10/27/2022 [...] R foot tendon repair, date pending. Had [facility] 02/18/22: mild to moderate CAD (40% stenosis mid LCx, LAD and RCA no significant disease, RCA non-dominant), normal LV systolic function, normal LVEDP. She had R ankle surgery at [facility] in [facility] with Dr. Phillips 03/2022. Reports home BP [...] related. She had fasting blood work at [place] on 05/25/18 which was all WNL except [...] events correlated with normal sinus rhythm. Had [facility] 02/18/22: mild to moderate CAD (40% stenosis mid LCx, LAD and RCA no significant disease, RCA non-dominant), normal LV systolic function, normal LVEDP. Adan Dobbins [place], [place] - [facility] 10/27/2022 12:49:30 [...] had R foot tendon repair 10/28/22. Had [facility] 02/18/22: mild to moderate CAD (40% stenosis mid LCx, LAD and RCA no significant disease, RCA non-dominant), normal LV systolic function, normal LVEDP. She had R ankle surgery at [facility] in [facility] with Dr. Phillips 03/2022. Reports home BP [...] related. She had fasting blood work at [place] on 05/25/18 which was all WNL except [...] >70%. Had normal [place] on 10/21/17. Had [employer] 7 day monitor 01/23/2018 which demonstrated normal [...] LV systolic function, normal LVEDP. Adan kolb [place] - [facility] 01/05/2023 14:34:41 OBGyn Episode No OBEpisode recorded.
--- OUTSIDE RECORDS SUMMARY | 2025-07-15 13:13 | XMS_ITS | Clinical Summary ---
Author Organization [facility] Address [address] [place] [address] Phone Care Team Providers Care Litharge Supervisor Name Role Phone Radha Kaminski Primary Care Provider [phone] Allergies Active Allergy Reactions Criticality Noted Date Comments Prochlorperazine Other (see comments),Shortness of breath High 11/26/2016 Lockjaw Lockjaw Medications aspirin (ST DUDLEY) 81 MG EC tablet Take 81 mg by mouth daily Active buPROPion XL (WELLBUTRIN XL) 150 MG 24 hr tablet 2 Active Cholecalciferol (Vitamin D3) 1.25 MG (68229 UT) capsule Twice a week 2 Active [...] Done Comments Influenza Vaccine (#1) [address] [place] [address] Care Teams Litharge Supervisor Relationship Specialty Start Date End Date Radha Kaminski [facility] [place] [address] PCP - General Family Medicine 06/21/22
--- OUTSIDE RECORDS SUMMARY | 2025-07-15 13:13 | XMS_ITS | Clinical Summary ---
Author Organization [facility] [address] Address [address] [place] [address] Care Team Providers Care Telephone Service Adviser Name Role Phone Roland Rojas DO Primary [...] region 05/17/2023 Coronary artery disease invo lving napaimute coronary artery of napaimute heart without angina pectoris 04/19/2023 Essential hypertension [...] (01/24/2024): Added automatically from request for surgery [id number] Nonspecific abnormal results of function study o [...] Description 06/14/2025 2:30 PM CDT Office Visit [facility] Cardiology at [address] [place] [address] Rhett Ramírez MD Coronary artery disease involving napaimute coronary artery of napaimute heart without angina pectoris (Primary Dx); Hyperlipidemia [...] on file Legal Sex Female 7:45 PM MACHINE TRIMMER Gender Identity Not on file Sexual Orientation [...] BLOOD ORDERABLES Final Re sult AMANUEL LOPEZ [address] [facility] Department [place] [address] from Last 3 Months or Most Recently Relevant to Health Maintenance Insurance [employer] OPEN ACCESS CIGNA OPEN ACCESS IDPA CIGNA OPEN ACCESS CIGNA OPEN ACCESS Care Teams Telephone Service Adviser Relationship Specialty Start Date End Date Roland Rojas DO [address] [place] [address] PCP - General Family Medicine 01/24/24
--- OUTSIDE RECORDS SUMMARY | 2025-07-15 13:13 | XMS_ITS | Encounter Summary ---
Author Organization [facility] Address [address] [place] [address] Care Team Providers Care Cloth Washer Back Tender Name Role Phone Radha Kaminski MYRON-FURNACE CHECKER Primary Care Provider [phone] Harmony Mcrae MD Unavailable Encounter Details Date Type Department Care Team (Late st Contact Info) Description 06/20/2023 Lab Requisition [facility] - [facility] Lab [address] [facility] [place] [address] Andrzej Aguilar MD [address] [place] [address] Social History Tobacco Use Types Packs/Day Years Used Date Smoking Tobacco: Never Smokeless Tobacco: Never Alcohol Use Standard Drinks/Week Comments Never 0 (1 standard drink = 0.6 oz pur e alcohol) Comments Unknown Sex and Gender Information Value Date Recorded Sex Assigned at Not on file Legal Sex Female 5:06 PM CONING MACHINE OPERATOR Gender Identity Not on file Sexual Orientation Not on file documented as of this encounter Plan of Treatment Not on file documented as of this encounter Procedures Procedure Name Priority Date/Time Associated Diagnosis Comments DERMATOPATHOLOGY Routine 06/20/2023 12:0 0 AM CDT documented in this encounter Results * DERMATOPATHOLOGY (06/20/2023 12:00 AM CDT) Case Report Dermatopathology Report Case: [id number] Authorizing Provider: Andrzej Aguilar MD Collected: 06/20/2023 12:00 AM Ordering Location: [facility] Received: 06/21/2023 06:10 AM [...] determined by the Dermatopathology Laboratory at [facility], directed by Dr. Jean-Pierre Miller. These tests need not be, and therefore are not, approved by the [place] Food and Drug Administration. The tests are used for clinical purposes. Billing Codes Specimen Charges Stain Charges 55398 1 22187 1 4:35 PM CDT DERMATOPATHOLOGY LABORATORY Embedded Images 4:35 PM CDT DERMATOPATHOLOGY LABORATORY Pathology/Cytolog y TISSUE SPECIMEN FROM SKIN / Unknown 06/20/2023 06/21/2023 6:10 AM CDT us Andrzej Aguilar MD LAB - PATHOLOGY/CYTOLOGY ORDERAB LES Final Result DERMATOPATHOLOGY LABORATORY [facility] - Department of Dermatology [facility] Medicine [address] [facility] [phone] documented in this encounter Visit Diagnoses Not on filedocumented in this encounter Care Teams Cloth Washer Back Tender Relationship Specialty Start Date End Date Radha Kaminski APRN-FURNACE CHECKER [address] [facility] [address] [place] [phone] PCP - General Nurse Practitioner Family 12/03/21 [place] [address] [place] [address] [place] [phone] Rheumatology 12/03/21 documented as of this encounter
--- OUTSIDE RECORDS SUMMARY | 2025-07-15 13:13 | XMS_ITS | Clinical Summary ---
Author Organization [facility] [employer] Address [address] [facility] [place] [address] Care Team Providers Care Revenue Officer Name Role Phone Radha Kaminski MYRON-RESTAURANT BUSSER Primary Care Provider [phone] Harmony Mcrae MD Unavailable Source Comments [facility] [employer],non-owned Affiliates and Associated Physician Practices is amultiple site organization consisting of ambulatory clinics and hospital sitesin [place], [place], [place] and [place]. This disclosure is being madepursuant to the Care Everywhere program and may not contain all information available regarding this patient. Last updated 18.[facility] Allergies Active Allergy Reactions Criticality [...] fluticasone propionate (FLONASE) 50 MCG/ACT nasal spray [place] 2 (two) sprays into each nostril once daily Active blood glucose (Red Panda Innovation LabsTOUCH ULTRA) test strip USE TO TEST THREE TIMES A DAY 1 Active estradiol (ESTRACE) 2 MG tablet Take 1 (one) tablet by mouth every 24 hours Active Multiple Vitamins-Gilberton als (MULTI VITAMIN/MINERA LS) TABS Take 1 (one) tablet by mouth once daily Active Clio-3 Fatty Acids (FISH OIL) 1000 MG capsule Take 1 (one) capsule by mouth once daily Active Cholecalcifero l 1.25 MG (55252 UT) Take 1 capsule by mouth every [...] naloxone HCl (Narcan) 4 MG/0.1ML nasal spray Warsaw 1 (one) spray into the nose Active [...] day by topical route. Active HYDROcodone-ac etaminophen (Omaha) 5-325 MG tablet Take 1 (one) tablet by mouth two times daily at 4am and 4pm Active indomethacin (Indocin) 50 MG capsule TAKE 1 CAPSULE BY MOUTH THREE TIMES A DAY ADMINISTER WITH FOOD OR MILK Active mupirocin (Bactroban) 2 % ointment 1 APPLIC TOPICALLY TWICE A DAY Active nystatin (Mycostatin) 660146 UNIT/ML suspension Take 5 mL 4 times [...] on file Legal Sex Female 5:06 PM GEAR REPAIR SUPERVISOR Gender Identity Not on file Sexual Orientation Not on file Last Filed Vital Signs Vital Sign Reading Time Taken Comments Blood Pressure 122/68 10/06/2023 2:03 PM GEAR REPAIR SUPERVISOR Pulse 79 10/06/2023 2:03 PM GEAR REPAIR SUPERVISOR Temperature 36.6 C (97.9 F) 01/07/2022 2:03 PM CDT Respiratory Rate 16 08/02/2023 2:35 PM GEAR REPAIR SUPERVISOR Oxygen Saturation 97% 08/02/2023 2:35 PM GEAR REPAIR SUPERVISOR Inhaled Oxygen Concentration - - Weight 93.9 kg (207 lb) 10/06/2023 2:03 PM GEAR REPAIR SUPERVISOR Height 170.2 cm (5' 7) 10/06/2023 2:03 PM GEAR REPAIR SUPERVISOR Body Mass Index 32.42 10/06/2023 2:03 PM GEAR REPAIR SUPERVISOR Plan of Treatment Health Maintenance Due Date [...] COMPREHENSIVE METABOLIC PANEL Routine 08/02/2023 3:29 PM GEAR REPAIR SUPERVISOR Arthralgia, unspecified joint HEPATITIS SCREEN ACUTE ([facility]) Routine 08/02/2023 3:28 PM GEAR REPAIR SUPERVISOR Arthralgia, unspecified joint from Last 3 Months or Most Recently Relevant to Health Maintenance Results * (ABNORMAL) COMPREHENSIVE METABOLIC PANEL (08/02/2023 3:29 PM GEAR REPAIR SUPERVISOR) Glucose 95 70 - 99 mg/dL [facility] [...] BLOOD SPECIMEN / Unknown 08/02/2023 3:29 PM GEAR REPAIR SUPERVISOR 08/02/2023 Narrative Resulting Agency Comment [facility] [address] [facility] [id number] Harmony Mcrae MD LAB - CHEMISTRY ORDERABLES Final Result [facility] INSURANCE BILL [address] [place] [address] * HEPATITIS SCREEN ACUTE ([facility]) (08/02/2023 3:28 PM GEAR REPAIR SUPERVISOR) Hepatitis A Virus Antibody IgM Negative Negative [facility] INSURANCE BILL Hepatitis B Virus Surface Antigen Negative Negative [facility] INSURANCE BILL Hepatitis B Core Virus Antibody IgM Negative Negative [facility] INSURANCE BILL Hepatitis C Antibody Non Reactive Non Reactive [facility] INSURANCE BILL Blood BLOOD SPECIMEN / Unknown 08/02/2023 3:28 PM GEAR REPAIR SUPERVISOR 08/02/2023 Narrative Resulting Agency Comment Lab Testing performed at: [address] [id number] Harmony Mcrae MD LAB - CHEMISTRY ORDERABLES Final Result [facility] INSURANCE BILL [address] [place] [address] from Last 3 Months or Most Recently Relevant to Health Maintenance Insurance Care Teams Revenue Officer Relationship Specialty Start Date End Date Yamilex RadhaMYRON-SCOTT [address] [facility] [address] [place] [address] PCP - General Nurse Practitioner Family 12/03/21 [place] [address] [place] [address] [place] [phone] Rheumatology 12/03/21
--- OUTSIDE RECORDS SUMMARY | 2025-07-15 13:14 | XMS_ITS | Clinical Summary ---
Author Organization [facility] Address [address] [place] [address] Care Team Providers Care Passenger Solicitor Name Role Phone Radha Kaminski NP Primary Care Provider [phone] Allergies Active Allergy Reactions Criticality Noted Date [...] controlled type 2 diabetes mellitus with hyperglycemia ([facility]) Use to test blood sugars three times [...] neuropathy, without long-term current use of insulin ([facility]) TAKE 1 CAPSULE THREE TIMES A DAY [...] Uncontrolled type 2 diabetes mellitus with hyperglycemia ([facility]) USE TO TEST THREE TIMES A DAY [...] ons:Uncontrolled type 2 diabetes mellitus with hyperglycemia ([facility]) Inject 3 mg into the skin once a week. 2 mL 6 09/06/20 24 Active Active Problems Problem Noted Date Diagnosed Date S/P peroneal tendon repair 12/22/2022 Traumatic rupture of peronea l tendon, right, subsequent encounter 11/04/2022 Overview (11/04/2022): Added automatically from request for surgery [id number] Right peroneal tendonosis 05/07/2022 Aortic valve regurgitation 01/13/2022 Pain in joint involving ankle and foot 0 Suppurative arthritis 08/27/2020 Essential hypertension 04/10/2019 Mixed hyperlipidemia 04/10/2019 Edema of lower extremity 10/26/2018 Dizziness 02/15/2018 Pain in both lower extremities 10/18/2017 Tachycardia 07/04/2017 Atypical chest pain 07/03/2017 Dyslipidemia 07/03/2017 History of obesity 07/03/2017 Anxiety 06/16/2017 Uncontrolled type 2 diabetes mellitus with hyper glycemia 11/26/2016 Bipolar disorder 11/26/2016 Type 2 diabetes mellitus wit h diabetic autonomic neuropathy, without long-term current use of insulin 11/26/2016 Resolved Problems Problem Noted Date Diagnosed Date Resolved Date Encounter for preventive health examination 10/05/2016 09/01/2020 Family History Medical History Relation Comments Heart [...] Sex Assigned at Female 08/12/2020 10:34 AM FIELD HAULER Legal Sex Female 10:58 PM FIELD HAULER Gender Identity Female 08/12/2020 10:34 AM FIELD HAULER Sexual Orientation Straight 08/12/2020 10 :34 AM FIELD HAULER Last Filed Vital Signs Vital Sign Reading Time Taken Comments Blood Pressure 128/80 09/06/2024 2:10 PM FIELD HAULER Pulse 93 09/06/2024 2:10 PM FIELD HAULER Temperature 36.2 C (97.2 F) 09/09/2023 2:19 PM FIELD HAULER Respiratory Rate 16 11/26/2022 1:40 PM FIELD HAULER Oxygen Saturation 97% 09/06/2024 2:10 PM FIELD HAULER Inhaled Oxygen Concentration - - Weight 107.3 kg (236 lb 9.6 oz) 09/06/2024 2:10 PM FIELD HAULER Height 170.2 cm (5' 7) 09/06/2024 2:10 PM FIELD HAULER Body Mass Index 37.06 09/06/2024 2:10 PM FIELD HAULER Plan of Treatment Health Maintenance Due Date Last Done Comments Colorectal Cancer Screening Colonoscopy (10 Years) 1968 Kidney Health Evaluation 1968 Annual Physical 1971 Hepatitis C 1986 DTaP, Tdap and Td Vaccines (1 - Tdap) 1987 Hepatitis B Vaccines (1 of 3 - 19+ 3-dose series) 1987 Pneumococcal Vaccine: 50+ Years (1 of 2 - PCV) 1987 Mammogram Screening 2008 Zoster Vaccines (1 of 2) 2018 PHQ-2 (Physician [place]) 09/19/2024 01/09/2024 Hemoglobin A1C 03/07/2025 09/06/2024, 08/20, 08/27/2022, Additional history exists COVID-19 Vaccine ( season) 2025 Influenza Adult (#1) 2025 Diabetes: Retinopathy Eye Exam 06/20/2025 06/20/2023 Lipid Panel 08/23/2025 08/23/2024 Hepatitis A Vaccines Aged Out No long er eligible based on patient's age to complete this topic Meningococcal B Vaccine Aged Out No l onger eligible based on patient's age to complete this topic Meningococcal Vaccine Aged Out No ramone nyasia eligible based on patient's age to complete this topic RSV Immunizations Under 20 Months Aged Out No longer eligible based on patient's age to complete this topic Medical Devices Implanted Type Area Roller Coaster Operator Device Identifier Shelf Expiration Date Model / Serial / Lot [place] Suture Arthrex Dx Fibertak Needle Sterile Latex Free - [id number] Implanted:Qty: 1 on 05/26/2021 by Harley Phillips DPM at [facility] [place] [employer] [id number] 11/16/2025 [id number] / / [id number] Cage Cage Spine Cervical Cage Cage Spine Lumbar Screw Screw Left: Knee Stimulator Stimulator Implant Description:Medtronic InterS jade implant Decellurized Dermis Implanted:Qty: 1 on 05/26/2021 by Harley Phillips DPM at [facility] [id number] 08/07/2023 / / [id number] Implant Peroneus Longus Allosource - [id number] Implanted:Qty: 1 on 11/26/2022 by Harley Phillips DPM at [facility] Right: Ankle [employer] [id number] 10/10/2027 [id number] / / [id number] Flex Band Dynamic Matrix Implanted:Qty: 1 on 11/26/2022 by Harley Phillips DPM at [facility] Right: Ankle [id number] 08/18/2026 [id number] / [id number] / [id number] Description:Company Edevaten Flexband Dynamic Matrix Implanted:Qty: 1 on 11/26/2022 by Harley Phillips DPM at [facility] Right: Ankle [id number] 08/18/2026 [id number] / [id number] / Description:abelon company Procedures Procedure Name Priority Date/Time Associated Diagnosis Comments HEMOGLOBIN, GLYCOSYLATED Routine 09/06/2024 Uncontrolled type 2 diabetes mellitus with hyperglycemia ([facility]) DIABETIC RETINOPATHY EXAM (NEGATIVE)(SCAN ORDER) Routine 06/20/2023 from Last 3 Months or Most Recently Relevant to Health Maintenance Results * A1C (BACK OFFICE) (09/06/2024) HGB A1C 7.0 % [address] I[address]RA DR, [place] 09/06/2024 us Eleanor Dodge MD LABORATORY Final Re sult Performing Organization Address City/[facility]/ZIP Co de Phone Number [address] I[address], [address] [place] [address], * DIABETIC RETINOPATHY EXAM (NEGATIVE) (06/20/2023) [facility] Scanned SCANNING Final Resu lt [facility] ON[facility] from Last 3 Months or Most Recently Relevant to Health Maintenance Insurance CIGNA Advance Directives * Full Code (Latest Code Status on File) Date Activated Date Inactivated Comments 11/16/2022 9:39 AM 11/16/2022 2:48 PM * Full Code Date Activated Date Inactivated Comments 04/13/2022 10:04 AM 04/13/2022 2:31 PM * Full Code Date Activated Date Inactivated Comments 05/26/2021 2:16 PM 05/26/2021 5:19 PM Care Teams Passenger Solicitor Relationship Specialty Start Date End Date Radha Kaminski NP [facility] [place] [phone] PCP - General NURSE PRACTITIONER 04/09/22
--- OUTSIDE RECORDS SUMMARY | 2025-07-15 13:14 | XMS_ITS | Encounter Summary ---
Author Organization [facility] Address [address] [place] [address] Care Team Providers Care Hr Operations Advisor Name Role Phone Aneesh Dickens MD Primary Care Provider [phone] Radha Kaminski NP Primary Care Provider [phone] Encounter Details Date Type Department Care Team (Late st Contact Info) Description 04/07/2022 Prep for Procedure [facility] Services [address] [place] [address] Harley Phillips, DPM [address] [place] [phone] Social History Tobacco Use Types Packs/Day [...] Sex Assigned at Female 08/12/2020 10:34 AM PAYLOADER MACHINE OPERATOR Legal Sex Female 10:58 PM PAYLOADER MACHINE OPERATOR Gender Identity Female 08/12/2020 10:34 AM PAYLOADER MACHINE OPERATOR Sexual Orientation Straight 08/12/2020 10 :34 AM PAYLOADER MACHINE OPERATOR COVID-19 Exposure Response Date Recorded In the last 10 days, have yo u been in contact with someone who was confirmed or suspected to have Coronavirus/COVID-19? No / Unsure 04/09/2022 12:05 PM CDT documented as of this encounter Plan of Treatment Not on file documented as of this encounter Visit Diagnoses Diagnosis Pre-op testing- Primary Preoperative examination, unspecified documented in this encounter Additional Health Concerns Infection Onset Date Last Indicated Resolved Time COVID-19 Rule Out 04/09/2022 04/09/2022 04/11/2022 12:05 PM CDT Assessment Noted Time PHQ-9 Depression Total Score: 0 08/12/20 2:09 PM PAYLOADER MACHINE OPERATOR documented as of this encounter Care Teams Hr Operations Advisor Relationship Specialty Start Date End Date Aneesh Dickens MD [address] [place] [address] PCP - General FAMILY PRACTICE 04/10/19 04/08/22 Radha Kaminski NP [facility] [phone] PCP - General NURSE PRACTITIONER 04/09/22 documented as of this encounter
--- OUTSIDE RECORDS SUMMARY | 2025-07-15 13:14 | XMS_ITS | Encounter Summary ---
Author Organization [facility] Address [address] [place] [address] Care Team Providers Care Bakery Decorator Name Role Phone Aneesh Dickens MD Primary Care Provider [phone] Radha Kaminski NP Primary Care Provider [phone] Encounter Details Date Type Department Care Team (Late st Contact Info) Description 05/19/2021 Prep for Procedure [facility] [address] [place] [address] Harley Phillips, DPM [address] [place] [phone] Social History Tobacco Use Types Packs/Day [...] Sex Assigned at Female 08/12/2020 10:34 AM HAND TURNER Legal Sex Female 10:58 PM HAND TURNER Gender Identity Female 08/12/2020 10:34 AM HAND TURNER Sexual Orientation Straight 08/12/2020 10 :34 AM HAND TURNER COVID-19 Exposure Response Date Recorded In the last month, have you been in contact with someone who was confirmed or suspected to have Coronavirus / COVID-19? No / Unsure 05/19/2021 3:46 PM CDT documented as of this encounter Plan of Treatment Not on file documented as of this encounter Results * PRE-SURGICAL/PRE-PROCEDURE CORONAVIRUS (COVID 19) (05/23/2021 9:06 AM CDT) SPECIMEN SOURCE NASAL 8:58 AM CDT [facility] CORONAVIRUS SARS COV 2 PCR (RESP) NEGATIVE NEGATIVE 05/24/2021 11:44 AM CDT [facility] Comment: THE SARS-CoV-2 TEST HAS BEEN AUTHORIZED BY THE FDA UNDER AN EUA FOR USE BY AUTHORIZED LABORATORIES. PERFORMED BY NUCLEIC ACID AMPLIFICATION PCR FIRST TEST YES 05/23/2021 8:58 AM CDT [facility] EMPLOYED IN HEALTHCARE NO 05/23/2021 8:58 AM CDT [facility] SYMPTOMATIC DEFINED BY CDC NO 05/23/2021 8:58 AM CDT [facility] HOSPITALIZATION STATUS NO 05/23/2021 8:58 AM CDT [facility] PATIENT IN ICU NO 05/23/2021 8:58 AM CDT [facility] RESIDENT OF [facility] CARE NO 05/23/2021 8:58 AM CDT [facility] NOT 05/23/2021 8:58 AM CDT [facility] NASAL STRUCTURE / Unknown 05/23/2021 9:06 AM CDT Harley Phillips DPM MICROBIOLOGY - GENERAL ORDERABLE S Final Result [facility] [address] [place] [address], [place] [phone] [facility] [address] [place] [address], [place] [phone] documented in this encounter Visit Diagnoses Diagnosis Pre-op testing- Primary Preoperative examination, unspecified documented in this encounter Additional Health Concerns Infection Onset Date Last Indicated Resolved Time COVID-19 Rule Out 05/23/2021 05/23/2021 05/24/2021 11:44 AM CDT COVID-19 Rule Out 04/09/2022 04/09/2022 04/11/2022 12:05 PM CDT documented as of this encounter Care Teams Bakery Decorator Relationship Specialty Start Date End Date Aneesh Dickens MD [address] [place] [address] PCP - General FAMILY PRACTICE 04/10/19 04/08/22 Radha Kaminski NP [facility] [place] [phone] PCP - General NURSE PRACTITIONER 04/09/22 documented as of this encounter
--- OUTSIDE RECORDS SUMMARY | 2025-07-15 13:14 | XMS_ITS | Encounter Summary ---
Author Organization [facility] Address [address] [place] [address] Care Team Providers Care Reporting Coordinator Name Role Phone SureshneginRadha NP Primary Care Provider [phone] Reason for Visit * Reason Onset Date Comments Called To Cancel Office Appt. 12/17/2024 Encounter Details Date Type Department Care Team (Late st Contact Info) Description 12/17/2024 Telephone [facility] Medical [facility] Diabetes and Endocrinology - [address] [address] Eleanor Dodge MD [address] [place] [address] Called To Cancel Office Appt. Social History Tobacco Use Types Packs/Day Years Used Date Smoking Tobacco: Never Smokeless Tobacco: Never Alcohol Use Standard Drinks/Week Comments Not Currently 0 (1 standard drink = 0.6 oz pur e alcohol) PHQ-2 Answer Date Recorded Patient Health Questionnaire-2 Score 0 01/09/2024 Comments No Sex and Gender Information Value Date Recorded Sex Assigned at Female 08/12/2020 10:34 AM SPECIAL FORCES ENGINEER SERGEANT Legal Sex Female 10:58 PM SPECIAL FORCES ENGINEER SERGEANT Gender Identity Female 08/12/2020 10:34 AM SPECIAL FORCES ENGINEER SERGEANT Sexual Orientation Straight 08/12/2020 10 :34 AM SPECIAL FORCES ENGINEER SERGEANT documented as of this encounter Progress Notes * Mattie Fox - 12/17/2024 10:31 AM CDT Caller name: Niles Heredia Call back/ext. #: [phone] MyChart: Yes- please communicate with the caller via [place] [employer] regarding this matter Call details: Called and cancelled her appt for tomorrow at 9:40 due to other conflicts. She states that she will call back to reschedule when she gets her calendar. documented in this encounter Plan of Treatment Not on file documented as of this encounter Visit Diagnoses Not on filedocumented in this encounter Additional Health Concerns Assessment Noted Time PHQ-9 Depression Total Score: 0 08/12/20 21 2:09 PM SPECIAL FORCES ENGINEER SERGEANT documented as of this encounter Care Teams Reporting Coordinator Relationship Specialty Start Date End Date Radha Kaminski NP [address] [place] [address] [place] [address] PCP - General NURSE PRACTITIONER 04/09/22 documented as of this encounter
== END 2025-07-15 12:38 | disposition home or self-care (01) ==
PROVIDERS: Emergency Provider Emergency Medicine; PCP Family Medicine
DX: M23.91 Unspecified internal derangement of right knee (principal); E78.5 Hyperlipidemia, unspecified; E11.9 Type 2 diabetes mellitus without complications; Z79.899 Other long term (current) drug therapy
CPT/HCPCS: 73564; 93971; 99284

== ENCOUNTER 2025-07-17 07:54 | Emergency (ER) | payer OTHER, MEDICAID, SELFPAY ==
--- OUTSIDE RECORDS SUMMARY | 2024-11-22 08:15 | XMS_ITS ---
Author Organization [facility] [employer] [facility] Address [address] [place] [address] [address] Care Team Providers Care Rock Crushing Machine Operator Name Role Phone Roland Rojas DO Primary Care Provider Unavail Julian Mcconnell Unavailable [phone] REASON FOR VISIT Pt r/s and no one documented it or removed this encounter Social History Sex Assigned At : Social History Observation Description Sex Assigned At Female Encounters Encounter Location Date Provider Diagnosis [facility] [employer] [address] [address] 11/22/2024 Julian Cummings Plan Of Treatment Next Appt Details Provider Name:Julian shaw, 08/05/2025 01:30:00 PM, [address], [facility] [address], [place], [address], Progress Notes * IZABELA PARRA GDOB:1969 (55 yo F)Acc No.[id number]:11/22/2024 Patient: Bianka IZABELA FRANCES Provider: LEOLA IQBAL :1970 A ge:54 Y S ex:Female Date:11/22/2024 Address:[address] [place], [place] [address] Pcp:Roland Rojas DO Subjective: * Chief Complaints: * P t r/s and no one documented it or removed this encounter Billing Information: * Procedure Codes: * Electronic signature of LEOLA Rosas on 07/17/2025 at 08:01 AM CDT Sign off status: Pending * Provider: JERO IQBALP Date: 0 11/22/2024 Generated for Dilip brown/Elen/Rachel on: 1 08:01 AM CDT
[2025-07-17 07:56] VITALS: BP 144/123; PULSE 90; RESP 18; TEMP 36.7; O2SAT 96
--- OUTSIDE RECORDS SUMMARY | 2025-07-17 08:00 | XMS_ITS | Encounter Summary ---
Author Organization [facility] Address [address] [place] [address] Care Team Providers Care Metal Off Bearer Name Role Phone Radha Kaminski MYRON-CREDIT RISK ANALYST Primary Care Provider [phone] Harmony Mcrae MD Unavailable Encounter Details Date Type Department Care Team (Late st Contact Info) Description 06/20/2023 Lab Requisition [facility] - DermPath Lab [address] [facility] [place] [address] Andrzej Aguilar MD [address] [place] [address] Social History Tobacco Use Types Packs/Day Years Used Date Smoking Tobacco: Never Smokeless Tobacco: Never Alcohol Use Standard Drinks/Week Comments Never 0 (1 standard drink = 0.6 oz pur e alcohol) Comments Unknown Sex and Gender Information Value Date Recorded Sex Assigned at Not on file Legal Sex Female 5:06 PM POLICE JUDGE Gender Identity Not on file Sexual Orientation Not on file documented as of this encounter Plan of Treatment Not on file documented as of this encounter Procedures Procedure Name Priority Date/Time Associated Diagnosis Comments DERMATOPATHOLOGY Routine 06/20/2023 12:0 0 AM CDT documented in this encounter Results * DERMATOPATHOLOGY (06/20/2023 12:00 AM CDT) Case Report Dermatopathology Report Case: [id number] Authorizing Provider: Andrzej Aguilar MD Collected: 06/20/2023 12:00 AM Ordering Location: [facility] DermPath Lab Received: 06/21/2023 06:10 [...] characteristic determined by the Dermatopathology Laboratory at [facility], directed by Dr. Jean-Pierre Miller. These tests need not be, and therefore are not, approved by the [place] Food and Drug Administration. The tests are used for clinical purposes. Billing Codes Specimen Charges Stain Charges 05841 1 75492 1 4:35 PM CDT DERMATOPATHOLOGY LABORATORY Embedded Images 4:35 PM CDT DERMATOPATHOLOGY LABORATORY Pathology/Cytolog y TISSUE SPECIMEN FROM SKIN / Unknown 06/20/2023 06/21/2023 6:10 AM CDT us Andrzej Aguilar MD LAB - PATHOLOGY/CYTOLOGY ORDERAB LES Final Result DERMATOPATHOLOGY LABORATORY [facility] - Department of Dermatology [facility] Medicine [address] [facility], [address]rd [address] [phone] documented in this encounter Visit Diagnoses Not on filedocumented in this encounter Care Teams Metal Off Bearer Relationship Specialty Start Date End Date Radha Kaminski APRN-CREDIT RISK ANALYST [address] [facility] [address] [place] [phone] PCP - General Nurse Practitioner Family 12/03/21 [place] [address] [place] [address] [place] [phone] Rheumatology 12/03/21 documented as of this encounter
--- OUTSIDE RECORDS SUMMARY | 2025-07-17 08:00 | XMS_ITS | Clinical Summary ---
Author Organization [facility] [address] Address [address] [place] [address] Care Team Providers Care Automation Technician Name Role Phone Roland Rojas DO [...] region 05/17/2023 Coronary artery disease invo lving [place] coronary artery of [place] heart without angina pectoris 04/19/2023 Essential hypertension [...] (01/24/2024): Added automatically from request for surgery [id number] Nonspecific abnormal results of function study o [...] Description 06/14/2025 2:30 PM CDT Office Visit [facility] Cardiology at [address] [place] [address] Rhett Ramírez MD Coronary artery disease involving [place] coronary artery of [place] heart without angina pectoris (Primary Dx); Hyperlipidemia [...] on file Legal Sex Female 7:45 PM TECHNICAL SPECIALIST CYTOGENETICS Gender Identity Not on file Sexual Orientation [...] BLOOD ORDERABLES Final Re sult AMANUEL LOPEZ [address] [facility] [place] [address] from Last 3 Months or Most Recently Relevant to Health Maintenance Insurance [employer] OPEN ACCESS CIGNA OPEN ACCESS IDPA CIGNA OPEN ACCESS CIGNA OPEN ACCESS Care Teams Automation Technician Relationship Specialty Start Date End Date Roland Rojas DO [address] [place] [address] PCP - General Family Medicine 01/24/24
--- OUTSIDE RECORDS SUMMARY | 2025-07-17 08:00 | XMS_ITS | Encounter Summary ---
Author Organization [facility] Address [address] [place] [address] Care Team Providers Care Pharmacy Ancillary Name Role Phone Aneesh Dickens MD Primary Care Provider [phone] Radha Kaminski NP Primary Care Provider [phone] Encounter Details Date Type Department Care Team (Late st Contact Info) Description 05/19/2021 Prep for Procedure [facility] [address] [place] [address] Harley Phillips, DPM [address] [place] [phone] Social History Tobacco Use Types Packs/Day [...] Sex Assigned at Female 08/12/2020 10:34 AM CREDIT COLLECTIONS CLERK Legal Sex Female 10:58 PM CREDIT COLLECTIONS CLERK Gender Identity Female 08/12/2020 10:34 AM CREDIT COLLECTIONS CLERK Sexual Orientation Straight 08/12/2020 10 :34 AM CREDIT COLLECTIONS CLERK COVID-19 Exposure Response Date Recorded In the last month, have you been in contact with someone who was confirmed or suspected to have Coronavirus / COVID-19? No / Unsure 05/19/2021 3:46 PM CDT documented as of this encounter Plan of Treatment Upcoming Encounters Date Type Department Care Team (Late st Contact Info) Description 07/24/2025 1:00 PM CREDIT COLLECTIONS CLERK Office Visit [facility] Medical Group Orthopedic Surgery [facility] [address] [place] [address] Kyler Ocasio, [place] [address] [place] [address] documented as of this encounter Results * PRE-SURGICAL/PRE-PROCEDURE CORONAVIRUS (COVID 19) (05/23/2021 9:06 AM CDT) SPECIMEN SOURCE NASAL 8:58 AM CDT [facility] CORONAVIRUS SARS COV 2 PCR (RESP) NEGATIVE NEGATIVE 05/24/2021 11:44 AM CDT [facility] Comment: THE SARS-CoV-2 TEST HAS BEEN AUTHORIZED BY THE FDA UNDER AN EUA FOR USE BY AUTHORIZED LABORATORIES. PERFORMED BY NUCLEIC ACID AMPLIFICATION PCR FIRST TEST YES 05/23/2021 8:58 AM CDT [facility] EMPLOYED IN HEALTHCARE NO 05/23/2021 8:58 AM CDT [facility] SYMPTOMATIC DEFINED BY CDC NO 05/23/2021 8:58 AM CDT [facility] HOSPITALIZATION STATUS NO 05/23/2021 8:58 AM CDT [facility] PATIENT IN ICU NO 05/23/2021 8:58 AM CDT [facility] RESIDENT OF [facility] NO 05/23/2021 8:58 AM CDT [facility] NOT 05/23/2021 8:58 AM CDT [facility] NASAL STRUCTURE / Unknown 05/23/2021 9:06 AM CDT Harley Phillips DPM MICROBIOLOGY - GENERAL ORDERABLE S Final Result [facility] (H) [facility] [address] [place] [address], [facility] (D) [facility] [address] [place] [address], [place] [phone] documented in this encounter Visit Diagnoses Diagnosis Pre-op testing- Primary Preoperative examination, unspecified documented in this encounter Additional Health Concerns Infection Onset Date Last Indicated Resolved Time COVID-19 Rule Out 05/23/2021 05/23/2021 05/24/2021 11:44 AM CDT COVID-19 Rule Out 04/09/2022 04/09/2022 04/11/2022 12:05 PM CDT documented as of this encounter Care Teams Pharmacy Ancillary Relationship Specialty Start Date End Date Aneesh Dickens MD [address] [place] [address] PCP - General FAMILY PRACTICE 04/10/19 04/08/22 Radha Kaminski NP [facility] [place] [phone] PCP - General NURSE PRACTITIONER 04/09/22 documented as of this encounter
--- OUTSIDE RECORDS SUMMARY | 2025-07-17 08:00 | XMS_ITS | Clinical Summary ---
Author Organization [facility] Address [address] [facility] [place] [address] Care Team Providers Care Hotel Or Motel Room Service Supervisor Name Role Phone Radha Kaminski MYRON-EXECUTIVE KITCHEN MANAGER Primary Care Provider [phone] Harmony Mcrae MD Unavailable Source Comments [facility],non-owned Affiliates and Associated Physician Practices is amultiple site organization consisting of ambulatory clinics and hospital sitesin [place], [place], [place] and [place]. This disclosure is being madepursuant to the Care Everywhere program and may not contain all information available regarding this patient. Last updated 18.[facility] Allergies Active Allergy Reactions Criticality [...] fluticasone propionate (FLONASE) 50 MCG/ACT nasal spray [place] 2 (two) sprays into each nostril once daily Active blood glucose (mTraksTOUCH ULTRA) test strip USE TO TEST THREE TIMES A DAY 1 Active estradiol (ESTRACE) 2 MG tablet Take 1 (one) tablet by mouth every 24 hours Active Multiple Vitamins-[place] als (MULTI VITAMIN/MINERA LS) TABS Take 1 (one) tablet by mouth once daily Active Jamul-3 Fatty Acids (FISH OIL) 1000 MG capsule Take 1 (one) capsule by mouth once daily Active Cholecalcifero l 1.25 MG (15195 UT) Take 1 capsule by mouth every [...] naloxone HCl (Narcan) 4 MG/0.1ML nasal spray [place] 1 (one) spray into the nose Active [...] day by topical route. Active HYDROcodone-ac etaminophen ([place]) 5-325 MG tablet Take 1 (one) tablet by mouth two times daily at 4am and 4pm Active indomethacin (Indocin) 50 MG capsule TAKE 1 CAPSULE BY MOUTH THREE TIMES A DAY ADMINISTER WITH FOOD OR MILK Active mupirocin (Bactroban) 2 % ointment 1 APPLIC TOPICALLY TWICE A DAY Active nystatin (Mycostatin) 740935 UNIT/ML suspension Take 5 mL 4 times [...] on file Legal Sex Female 5:06 PM WOMEN NURSE Gender Identity Not on file Sexual Orientation Not on file Last Filed Vital Signs Vital Sign Reading Time Taken Comments Blood Pressure 122/68 10/06/2023 2:03 PM WOMEN NURSE Pulse 79 10/06/2023 2:03 PM WOMEN NURSE Temperature 36.6 C (97.9 F) 01/07/2022 2:03 PM CDT Respiratory Rate 16 08/02/2023 2:35 PM WOMEN NURSE Oxygen Saturation 97% 08/02/2023 2:35 PM WOMEN NURSE Inhaled Oxygen Concentration - - Weight 93.9 kg (207 lb) 10/06/2023 2:03 PM WOMEN NURSE Height 170.2 cm (5' 7) 10/06/2023 2:03 PM WOMEN NURSE Body Mass Index 32.42 10/06/2023 2:03 PM WOMEN NURSE Plan of Treatment Health Maintenance Due Date [...] COMPREHENSIVE METABOLIC PANEL Routine 08/02/2023 3:29 PM WOMEN NURSE Arthralgia, unspecified joint HEPATITIS SCREEN ACUTE ([facility]) Routine 08/02/2023 3:28 PM WOMEN NURSE Arthralgia, unspecified joint from Last 3 Months or Most Recently Relevant to Health Maintenance Results * (ABNORMAL) COMPREHENSIVE METABOLIC PANEL (08/02/2023 3:29 PM WOMEN NURSE) Glucose 95 70 - 99 mg/dL [facility] [...] BLOOD SPECIMEN / Unknown 08/02/2023 3:29 PM WOMEN NURSE 08/02/2023 Narrative Resulting Agency Comment [facility] [address] [facility] [id number] Harmony Mcrae MD LAB - CHEMISTRY ORDERABLES Final Result [facility] INSURANCE BILL [address] [place] [address] * HEPATITIS SCREEN ACUTE ([facility]) (08/02/2023 3:28 PM WOMEN NURSE) Hepatitis A Virus Antibody IgM Negative Negative [facility] INSURANCE BILL Hepatitis B Virus Surface Antigen Negative Negative [facility] INSURANCE BILL Hepatitis B Core Virus Antibody IgM Negative Negative [facility] INSURANCE BILL Hepatitis C Antibody Non Reactive Non Reactive [facility] INSURANCE BILL Blood BLOOD SPECIMEN / Unknown 08/02/2023 3:28 PM WOMEN NURSE 08/02/2023 Narrative Resulting Agency Comment Lab Testing performed at: [facility] [id number] Harmony Mcrae MD LAB - CHEMISTRY ORDERABLES Final Result [facility] INSURANCE BILL [address] [place] [address] from Last 3 Months or Most Recently Relevant to Health Maintenance Insurance Care Teams Hotel Or Motel Room Service Supervisor Relationship Specialty Start Date End Date Yamilex RadhaMYRON-SCOTT [address] [facility] [address] [place] [phone] PCP - General Nurse Practitioner Family 12/03/21 [place] [address] [place] [place] [phone] Rheumatology 12/03/21
--- OUTSIDE RECORDS SUMMARY | 2025-07-17 08:00 | XMS_ITS | Clinical Summary ---
Author Organization [facility] Address [address] [place] [address] Phone Care Team Providers Care Power Distribution Engineer Name Role Phone Radha Kaminski Primary Care Provider [phone] Allergies Active Allergy Reactions Criticality Noted Date Comments Prochlorperazine Other (see comments),Shortness of breath High 11/26/2016 Lockjaw Lockjaw Medications aspirin (ST DUDLEY) 81 MG EC tablet Take 81 mg by mouth daily Active buPROPion XL (WELLBUTRIN XL) 150 MG 24 hr tablet 2 Active Cholecalciferol (Vitamin D3) 1.25 MG (84218 UT) capsule Twice a week 2 Active [...] Done Comments Influenza Vaccine (#1) [address] [place] [address] Care Teams Power Distribution Engineer Relationship Specialty Start Date End Date Radha Kaminski [facility] [place] [phone] PCP - General Family Medicine 06/21/22
--- OUTSIDE RECORDS SUMMARY | 2025-07-17 08:00 | XMS_ITS | Patient Health Record ---
Author Organization [facility] Address [address] [facility] [address] [place] [address] Care Team Providers Care Mining Helper Name Role Phone Roland Rojas DO Primary Care Provider Unavail able Julian Cummings Unavailable [phone] Allergies Allergen (clinical drug ingredient) Drug/Non Drug [...] ICOSAPENT ETHYL 1 GRAM CAPSULE *Reorder from [facility] for eRx and Interaction Alerts* 12/21/2023 Active Rosuvastatin Calcium 40 MG Tablet Oral 12/21/2023 Active oxyCODONE HCl 5 MG Tablet Oral 12/21/2023 Active Gabapentin 300 MG Capsule Oral 12/21/2023 Active Magnesium Oxide (Elemental) 400 MG Tablet Oral *Reorder from [facility] for eRx and Interaction Alerts* 12/21/2023 Active [...] Problem Bipolar affective disorder, currently depressed, moderate (676020405) Bipolar disorder, current episode depressed, moderate (F31.32) 12/21/19 24 Active confirmed Problem Attention deficit hyperactivity disorder, combined type (33493042) Attention-deficit hyperactivity disorder, combined type (F90.2) Active confirmed Vital Signs Heart Rate 99 /min 05/03/2025 Height-cm 170.18 cm 05/03/2025 Blood pressure diastolic 74 mm Hg 05/03/2025 Weight-kg 95.07 kg 05/03/2025 Height 67.00 in 05/03/2025 Blood pressure systolic 122 mm Hg 05/03/2025 Weight 209.6 lbs 05/03/2025 BMI 32.82 kg/m2 05/03/2025 Encounters Encounter Location Date Provider Diagnosis [facility] [address] [address] 09/26/2024 Julian Cummings Attention-deficit hyperactivity disorder, combined type F90.2 and Bipolar disorder, current episode depressed, moderate F31.[address] [facility] [address] [place] [address] [address] [facility] [address] [place] [address] 12/06/2024 Julian Cummings Encounter for screen ing for cardiovascular disorders Z13.6 ; Encounter for screening for depression Z13.31 ; Attention-deficit hyperactivity disorder, combined type F90.2 and Bipolar disorder, current episode depressed, moderate F31.[address] [facility] [address] [place] [address] [address] [facility] [address] [place] [address] 01/07/2025 Julian Cummings Encounter for screen ing for cardiovascular disorders Z13.6 ; Encounter for screening for depression Z13.31 ; Attention-deficit hyperactivity disorder, combined type F90.2 and Bipolar disorder, current episode depressed, moderate F31.32 [facility], [facility] [address] [place] [address] 02/19/2025 Julian Cummings Encounter for screen ing for cardiovascular disorders Z13.6 ; Encounter for screening for depression Z13.31 ; Attention-deficit hyperactivity disorder, combined type F90.2 and Bipolar disorder, current episode depressed, moderate F31.32 [facility], [facility] [address] [place] [address] 03/29/2025 Julian Cummings Attention-deficit hyperactivity disorder, combined type F90.2 and Bipolar disorder, current episode depressed, moderate F31.32 [facility], [facility] [address] [place] [address] 05/03/2025 Julian Cummings Bipolar disorder, current episode depressed, moderate F31.32 and Attention-deficit hyperactivity disorder, combined type F90.2 [facility], [facility] [address] [place] [address] 08/28/2024 Julian Cummings Attention-deficit hyperactivity disorder, combined type F90.2 [facility], [facility] [address] [place] [address] 09/03/2024 Julian Jonesoza [facility], [facility] [address] [place] [address] 10/31/2024 Julian Jonesoza [facility], [facility] [address] [place] [address] 01/07/2025 Julian Jonesoza [facility], [facility] [address] [place] [address] 01/21/2025 Julian Cummings [facility], [facility] [address] [place] [address] 10/31/2024 Julian Cummings Attention-deficit hyperactivity disorder, combined type F90.2 [facility], [facility] [address] [place] [address] 10/31/2024 Julian Cummings Attention-deficit hyperactivity disorder, combined type F90.2 [facility], [facility] [address] [place] [address] 05/03/2025 Julian Cummings Attention-deficit hyperactivity disorder, combined type F90.2 [facility], [facility] [address] [place] [address] 05/03/2025 Julian Cummings [facility], [facility] [address] [place] [address] 06/17/2025 Julian Cummings [facility], [facility] [address] [facility] [address] [place] [address] 06/17/2025 Julian Cummings [facility], [facility] [address] [facility] [address] [place] [address] 06/17/2025 Julian Cummings Attention-deficit hyperactivity disorder, combined type F90.2 [facility] [address] [facility] [address] [place] [address] 06/18/2025 Julian Cummings [facility] [address] [facility] [address] [place] [address] 07/10/2025 Julian Cummings Attention-deficit hyperactivity disorder, combined [...] current episode depressed, moderate (ICD-10 - F31.32) 09/26/2024 Attention-defic it hyperactivity disorder, combined type (ICD-10 - F90.2) 1. Depression: - Patient reports feeling more depressed over the last 6 months. - Currently on Cymbalta 30 mg twice daily and Vraylar 3 mg. - X Ray Nurse does not want to increase Vraylar due [...] disorder, combined type (ICD-10 - F90.2) 05/03/2025 Attention-defic it hyperactivity disorder, combined type [...] - F90.2) 02/19/2025 Encounter for screening for depression (ICD-10 - Z13.31) 09/26/2024 Bipolar disorder, current episode depressed, moderate (ICD-10 - F31.32) 1. Depression: - Patient reports feeling more depressed over the last 6 months. - Currently on Cymbalta 30 mg twice daily and Vraylar 3 mg. - X Ray Nurse does not want to increase Vraylar due [...] bupropion and adjust dosage if necessary. 02/19/2025 Attention-defic it hyperactivity disorder, combined type [...] Provider Name:Julian shaw, 08/05/2025 01:30:00 PM, [address] [facility] [address], [facility] [address], [place], [address], Insurance Providers Payer Name Payer Address Payer Phone Subscriber Number Group Number Insured Name Patient Relationship to Insured Coverage Start Date Coverage End Date Cigna [address] [place] [address] [id number] IZABELA PARRA Self - patient is the insured Medicaid-[place] l Medicaid [address] [address] [place] [address] [id number] IZABELA PARRA Self - patient is the insured Medical (General) History Medical History History ICD Code Problems: Attention deficit hyperactivit y disorder, combined type Bipolar affective disorder, current epis ode depression , Surgical History Surgery Date(Month/Year) Other 09/19/1998 Hysterectomy (62684) 09/19/1999 Removal of gallbladder (19195) 1 Any surgical history 09/19/2009 Appendectomy (78640) 09/20/1993
--- OUTSIDE RECORDS SUMMARY | 2025-07-17 08:01 | XMS_ITS | Encounter Summary ---
Author Organization [facility] Address [address] [place] [address] Care Team Providers Care Buyer Renter Name Role Phone SureshneginRadha NP Primary Care Provider [phone] Reason for Visit * Reason Onset Date Comments Called To Cancel Office Appt. 12/17/2024 Encounter Details Date Type Department Care Team (Late st Contact Info) Description 12/17/2024 Telephone [facility] Medical Group Diabetes and Endocrinology - [address] [address] Eleanor Dodge MD [address] [place] [address] Called To Cancel Office Appt. Social [...] Sex Assigned at Female 08/12/2020 10:34 AM PC TECH Legal Sex Female 10:58 PM PC TECH Gender Identity Female 08/12/2020 10:34 AM PC TECH Sexual Orientation Straight 08/12/2020 10 :34 AM PC TECH documented as of this encounter Progress Notes * Mattie Fox - 12/17/2024 10:31 AM CDT Caller name: Niles Heredia Call back/ext. #: [phone] MyChart: Yes- please communicate with the caller via [employer] regarding this matter Call details: Called and cancelled her appt for tomorrow at 9:40 due to other conflicts. She states that she will call back to reschedule when she gets her calendar. documented in this encounter Plan of Treatment Upcoming Encounters Date Type Department Care Team (Late st Contact Info) Description 07/24/2025 1:00 PM PC TECH Office Visit [facility] Medical Group Orthopedic Surgery [facility] [address] [facility] [address] [place] [address] [place] [address] [place] [address] documented as of this encounter Visit Diagnoses Not on filedocumented in this encounter Additional Health Concerns Assessment Noted Time PHQ-9 Depression Total Score: 0 08/12/20 21 2:09 PM PC TECH documented as of this encounter Care Teams Buyer Renter Relationship Specialty Start Date End Date Radha Kaminski NP [facility] [place] [address] PCP - General NURSE PRACTITIONER 04/09/22 documented as of this encounter
--- OUTSIDE RECORDS SUMMARY | 2025-07-17 08:01 | XMS_ITS | Encounter Summary ---
Author Organization [facility] Address [address] [place] [address] Care Team Providers Care Bulwark Carpenter Name Role Phone Aneesh Dickens MD Primary Care Provider [phone] Radha Kaminski NP Primary Care Provider [phone] Encounter Details Date Type Department Care Team (Late st Contact Info) Description 04/07/2022 Prep for Procedure [facility] [address] [place] [address] Harley Phillips, DPM [address] [place] [address] Social History Tobacco Use Types Packs/Day [...] Sex Assigned at Female 08/12/2020 10:34 AM VOICE NETWORK ADMINISTRATOR Legal Sex Female 10:58 PM VOICE NETWORK ADMINISTRATOR Gender Identity Female 08/12/2020 10:34 AM VOICE NETWORK ADMINISTRATOR Sexual Orientation Straight 08/12/2020 10 :34 AM VOICE NETWORK ADMINISTRATOR COVID-19 Exposure Response Date Recorded In the last 10 days, have yo u been in contact with someone who was confirmed or suspected to have Coronavirus/COVID-19? No / Unsure 04/09/2022 12:05 PM CDT documented as of this encounter Plan of Treatment Upcoming Encounters Date Type Department Care Team (Late st Contact Info) Description 07/24/2025 1:00 PM VOICE NETWORK ADMINISTRATOR Office Visit [facility] Medical Group Orthopedic Surgery - [place] [address] [place] [address] [place] [address] [place] [address] documented as of this encounter Visit Diagnoses Diagnosis Pre-op testing- Primary Preoperative examination, unspecified documented in this encounter Additional Health Concerns Infection Onset Date Last Indicated Resolved Time COVID-19 Rule Out 04/09/2022 04/09/2022 04/11/2022 12:05 PM CDT Assessment Noted Time PHQ-9 Depression Total Score: 0 08/12/20 2:09 PM VOICE NETWORK ADMINISTRATOR documented as of this encounter Care Teams Bulwark Carpenter Relationship Specialty Start Date End Date Aneesh Dickens MD [address] [place] [address] PCP - General FAMILY PRACTICE 04/10/19 04/08/22 Radha Kaminski NP [facility] [place] [address] PCP - General NURSE PRACTITIONER 04/09/22 documented as of this encounter
--- OUTSIDE RECORDS SUMMARY | 2025-07-17 08:01 | XMS_ITS | Clinical Summary ---
Author Organization [facility] Address [address] [place] [address] Care Team Providers Care Manufacturing Test Technician Name Role Phone Radha Kaminski NP Primary Care Provider [phone] Allergies Active Allergy Reactions Criticality Noted Date [...] controlled type 2 diabetes mellitus with hyperglycemia ([facility]) Use to test blood sugars three [...] neuropathy, without long-term current use of insulin ([facility]) TAKE 1 CAPSULE THREE TIMES A [...] Uncontrolled type 2 diabetes mellitus with hyperglycemia ([facility]) USE TO TEST THREE TIMES A [...] ons:Uncontrolled type 2 diabetes mellitus with hyperglycemia ([facility]) Inject 3 mg into the skin once a week. 2 mL 6 09/06/20 24 Active Active Problems Problem Noted Date Diagnosed Date S/P peroneal tendon repair 12/22/2022 Traumatic rupture of peronea l tendon, right, subsequent encounter 11/04/2022 Overview (11/04/2022): Added automatically from request for surgery [id number] Right peroneal tendonosis 05/07/2022 Aortic valve regurgitation [...] Sex Assigned at Female 08/12/2020 10:34 AM BRICK CATCHER Legal Sex Female 10:58 PM BRICK CATCHER Gender Identity Female 08/12/2020 10:34 AM BRICK CATCHER Sexual Orientation Straight 08/12/2020 10 :34 AM BRICK CATCHER Last Filed Vital Signs Vital Sign Reading Time Taken Comments Blood Pressure 128/80 09/06/2024 2:10 PM BRICK CATCHER Pulse 93 09/06/2024 2:10 PM BRICK CATCHER Temperature 36.2 C (97.2 F) 09/09/2023 2:19 PM BRICK CATCHER Respiratory Rate 16 11/26/2022 1:40 PM BRICK CATCHER Oxygen Saturation 97% 09/06/2024 2:10 PM BRICK CATCHER Inhaled Oxygen Concentration - - Weight 107.3 kg (236 lb 9.6 oz) 09/06/2024 2:10 PM BRICK CATCHER Height 170.2 cm (5' 7) 09/06/2024 2:10 PM BRICK CATCHER Body Mass Index 37.06 09/06/2024 2:10 PM BRICK CATCHER Plan of Treatment Upcoming Encounters Date Type Department Care Team (Late st Contact Info) Description 07/24/2025 1:00 PM BRICK CATCHER Office Visit [facility] Medical Group Orthopedic Surgery [facility] [address] [place] [address] Kyler Ocasio, UNSCRAMBLER [address] [place] [address] Health Maintenance Due Date Last Done Comments [...] Vaccines (1 of 2) 2018 PHQ-2 (Physician Jamul) 09/19/2024 01/09/2024 Hemoglobin A1C 03/07/2025 09/06/2024, 1210/2022, 08/27/2022, Additional history exists COVID-19 Vaccine ( [...] this topic Medical Devices Implanted Type Area Regional Coordinator Device Identifier Shelf Expiration Date Model / Serial / Lot [place] Suture Arthrex Dx Fibertak Needle Sterile Latex Free - [id number] Implanted:Qty: 1 on 05/26/2021 by Harley Phillips DPM at [facility] [place] [employer] [id number] 11/16/2025 [id number] / / [id number] Cage Cage Spine Cervical Cage Cage Spine Lumbar Screw Screw Left: Knee Stimulator Stimulator Implant Description:Medtronic InterS jade implant Decellurized Dermis Implanted:Qty: 1 on 05/26/2021 by Harley Phillips DPM at [facility] [id number] 08/07/2023 / / [id number] Implant Peroneus Longus Allosource - [id number] Implanted:Qty: 1 on 11/26/2022 by Harley Phillips DPM at [facility] Right: Ankle [employer] [id number] 10/10/2027 [id number] / / [id number] Flex Band Dynamic Matrix Implanted:Qty: 1 on 11/26/2022 by Harley Phillips DPM at [facility] Right: Ankle [id number] 08/18/2026 [id number] / [id number] / [id number] Description:Company [employer]Buzz Flexband Dynamic Matrix Implanted:Qty: 1 on 11/26/2022 by Harley Phillips DPM at [facility] Right: Ankle [id number] 08/18/2026 [id number] / [id number] / Description:artelon company Procedures Procedure Name Priority Date/Time Associated Diagnosis Comments HEMOGLOBIN, GLYCOSYLATED Routine 09/06/2024 Uncontrolled type 2 diabetes mellitus with hyperglycemia ([facility]) DIABETIC RETINOPATHY EXAM (NEGATIVE)(SCAN ORDER) Routine 06/20/2023 from Last 3 Months or Most Recently Relevant to Health Maintenance Results * A1C (BACK OFFICE) (09/06/2024) [facility]GB A1C 7.0 % -[address] [facility] 09/06/2024 Eleanor Dodge MD LABORATORY Final Re sult [facility], [place] [address] [place] [address], * DIABETIC RETINOPATHY EXAM (NEGATIVE) (06/20/2023) [facility] Doc [facility] Scanned SCANNING Final Resu lt [facility] ONBASE from Last 3 Months or Most Recently Relevant to Health Maintenance Insurance Advance Directives * Full Code (Latest Code Status on File) Date Activated Date Inactivated Comments 11/16/2022 9:39 AM 11/16/2022 2:48 PM * Full Code Date Activated Date Inactivated Comments 04/13/2022 10:04 AM 04/13/2022 2:31 PM * Full Code Date Activated Date Inactivated Comments 05/26/2021 2:16 PM 05/26/2021 5:19 PM Care Teams Manufacturing Test Technician Relationship Specialty Start Date End Date Radha Kaminski NP [address] [place] [address] [place] [address] PCP - General NURSE PRACTITIONER 04/09/22
--- NOTE | 2025-07-17 08:03 | ED.LOWEXIN ---
HPI - Extremity Injury (Lower) General Chief Complaint: Extremity Injury, Lower Stated Complaint: rt. knee pain Time Seen by Provider: 07/17/25 08:01 Source: patient Mode of arrival: ambulatory Limitations: no limitations History of Present Illness HPI Narrative: 55-year-old female with a history of bipolar 1, dyslipidemia, migraine, arthritis, chronic low back pain, status post left knee surgery presents to the ED with -- right knee for the last 3 days. She presented to the ED on 07/15/2025 and had x-ray done which was unremarkable. The patient had venous Dopplers which were unremarkable. Patient wants fluid removed from her right knee. The x-ray did not show any joint effusion. The patient had fluid removed from the joint 2 years ago Denied any fever or chills. No history of trauma. Onset (ago): day(s) (Three days) Injury: Right: knee Severity: severe Relieving factors: immobilization Exacerbating factors: weight bearing Associated symptoms: swelling and unable to bear weight Other symptoms: none Related Data Home Medications ?Medication ?Instructions ?Recorded ?Confirmed ?Last Taken ?Type gabapentin 300 mg capsule 300 mg PO TID 02/23/22 04/02/25 03/04/22 History magnesium oxide 400 mg PO DAILY 02/23/22 04/02/25 03/01/22 History bupropion HCl 150 mg 24 hr tablet, 150 mg PO DAILY 07/22/23 04/02/25 Unknown History extended release methylphenidate HCl 36 mg 72 mg PO DAILY 07/22/23 04/02/25 Unknown History tablet,extended release 24 hr (Concerta) rosuvastatin 20 mg tablet 20 mg PO DAILY 07/22/23 04/02/25 Unknown History icosapent ethyl 1 gram capsule 2 g PO BID 12/02/23 04/02/25 Unknown History cyanocobalamin (vitamin B-12) 500 mcg subcut MONTHLY 02/13/25 04/02/25 Unknown History 1,000 mcg/mL injection solution oxycodone 5 mg tablet 5 mg PO Q8H PRN pain 02/13/25 04/02/25 Unknown History cariprazine 3 mg capsule (Vraylar) 3 mg PO Q24H 07/15/25 Unknown History conjugated estrogens 1.25 mg 1.25 mg PO DAILY 07/15/25 Unknown History tablet (Premarin) lamotrigine 100 mg tablet 100 mg PO DAILY 07/15/25 Unknown History minoxidil 2.5 mg tablet 1.25 mg PO DAILY 07/15/25 Unknown History prednisone 5 mg tablet 5 mg PO DAILY 07/15/25 Unknown History rimegepant 75 mg disintegrating 75 mg PO DAILY 07/15/25 Unknown History tablet (Nurtec ODT) rosuvastatin 40 mg tablet 40 mg PO DAILY 07/15/25 Unknown History topiramate 25 mg tablet 25 mg PO Q12H 07/15/25 Unknown History Allergies Allergy/AdvReac Type Severity Reaction Status Date / Time prochlorperazine Allergy Severe Other Verified 07/17/25 08:08 ciprofloxacin Allergy Mild Rash Verified 07/17/25 08:08 Review of Systems Review of Systems: All systems reviewed & are unremarkable except as noted in HPI and below PMFSH Past Medical History Medical History Excessive daytime sleepiness Chronic mixed headache syndrome Obesity Depression Anxiety Back pain Hyperlipidemia Bipolar 1 disorder Diabetes Migraine Surgical History Surgical History History of foot surgery History of left knee surgery History of carpal tunnel release Hx of cholecystectomy H/O: hysterectomy Family History Family History Other Family history of malignant neoplasm Hypertension Social History Social History Smoking status: Never smoker Tobacco type: cigarettes Second hand tobacco smoke exposure: No Alcohol intake: never Drinks per week: 1 Alcohol use details: rare occasional use Substance use: never Substance use type: does not use Other substance usage details: [place] Do You Feel Safe in your Home?: Yes Lack of Transportation: No Lack of Food: Never True Current Housing: I Have Housing Concerned About Future Housing: No Difficulty Paying Gas/Electric Bills: Decline to Answer Difficulty Paying for Meds: Decline to Answer Currently Unemployed: No Education: High School Diploma/GED Living arrangements: alone Gender identity (if verbalized by the patient): Female Spiritual care concerns: No Exam Const: General: no acute distress Nutritional Appearance: well nourished Orientation/consciousness: patient oriented x3 Limitations: no limitations HENMT: Head: normal to inspection Ears: external ears normal Face/Nose/Sinus: Normal external nose present Face and sinus: normal facial exam Mouth: Yes Normal oral and palatal mucosa present Throat: posterior oropharynx normal Eyes: Conjunctivae: conjunctivae normal Pupils: Equal, round and reactive pupils present EOM: EOMs intact bilaterally Direct Ophthalmoscopy: no photophobia Neck: Neck: normal visual inspection, no lymphadenopathy and no meningeal signs Chest: Chest palpation & inspection: normal inspection of the chest Resp: Effort & Inspection: normal respiratory effort Auscultation: clear to auscultation bilaterally Cardio: Rate: regular rate Rhythm: regular rhythm GI: GI Palp: Yes Soft to palpation Auscultation: normal bowel sounds Other: No tenderness/rigidity/rebound. : General: Yes no CVA tenderness Back/Spine/Pelvis: Back: no CVA tenderness Skin: General skin exam: normal color Rashes: no rashes Wounds: no wounds Neuro: General: patient oriented x3, moves all extremities, no meningeal signs, no focal motor deficits and CN's II-XI intact bilaterally Speech: normal speech Extrem: Other: Right knee--swelling with decreased range of motion Psych: Mental Status: mental status grossly normal Affect: normal affect Attitude: cooperative Course Course Emergency Course: Patient presents with severe right knee pain and swelling. Agree to give a pain shot for knee pain. Explained to her that I am unable to drain fluid from the knee which the patient wants. The x-ray done 2 days ago did not show any fluid in the joint. Called Dr. Carreon her ortho specialist who she is scheduled to see on 07/22/2025. The patient is due to be seen in his office at 2:00 p.m.. Vital Signs Vital signs: Vital Signs Temperature 36.7 C 07/17/25 07:56 Pulse Rate 90 07/17/25 07:56 Respiratory Rate 18 07/17/25 07:56 Blood Pressure 144/123 H 07/17/25 07:56 Pulse Oximetry 96 07/17/25 07:56 Oxygen Delivery Room Air 07/17/25 07:56 Temperature 36.7 C 07/17/25 07:56 Pulse Rate 90 07/17/25 07:56 Respiratory Rate 18 07/17/25 07:56 Blood Pressure 144/73 H 07/17/25 08:19 Pulse Oximetry 96 07/17/25 07:56 Oxygen Delivery Room Air 07/17/25 07:56 MDM - Extremity Injury (Lower) MDM Narrative Medical decision making narrative: Right knee pain Differential Diagnosis Differential diagnosis: Likely other (Knee sprain) Medical Records Attestation: I reviewed the patient's medical records. Discharge Plan Discharge Clinical Impression: Knee pain Qualifiers: Chronicity: acute Laterality: right Qualified Code(s): M25.561 - Pain in right knee Patient Disposition: Home Condition: Stable Instructions: Antibiotic Form, Knee Pain (ED) Patient Language: Irish Prescriptions: No Action prednisone 5 mg tablet 5 mg PO DAILY topiramate 25 mg tablet 25 mg PO Q12H minoxidil 2.5 mg tablet 1.25 mg PO DAILY Premarin 1.25 mg tablet 1.25 mg PO DAILY lamotrigine 100 mg tablet 100 mg PO DAILY rosuvastatin 40 mg tablet 40 mg PO DAILY Vraylar 3 mg capsule 3 mg PO Q24H Nurtec ODT 75 mg tablet,disintegrating 75 mg PO DAILY methylphenidate HCl [Concerta] 36 mg tablet extended release 24hr 72 mg PO DAILY bupropion HCl 150 mg tablet extended release 24 hr 150 mg PO DAILY rosuvastatin 20 mg tablet 20 mg PO DAILY oxycodone 5 mg tablet 5 mg PO Q8H PRN (Reason: pain) cyanocobalamin (vitamin B-12) 1,000 mcg/mL solution 500 mcg subcut MONTHLY icosapent ethyl 1 gram capsule 2 g PO BID gabapentin 300 mg Capsule 300 mg PO TID magnesium oxide 400 mg magnesium Tablet 400 mg PO DAILY montelukast 10 mg tablet 10 mg PO DAILY Qty: 90 3RF levothyroxine 50 mcg tablet 50 mcg PO DAILY Qty: 90 3RF Mounjaro 7.5 mg/0.5 mL pen injector See Rx Instructions .ROUTE .COMPLEX Qty: 6 1RF Dose Instruction: INJECT 7.5 MG (0.5 ML) SUBCUTANEOUSLY WEEKLY Rx Instructions: INJECT 7.5 MG (0.5 ML) SUBCUTANEOUSLY WEEKLY- 3 month supply fluticasone propionate 50 mcg/actuation spray,suspension 2 spray NASAL BID Qty: 96 3RF Rx Instructions: administer into each nostril Follow-up/Referrals: Roland Rojas DO [Primary Care Provider, [facility]] Time of Disposition: 08:33
[2025-07-17 08:18] VITALS: BP 144/73
[2025-07-17 08:19] VITALS: BP 144/73
[2025-07-17] MEDS: ONDANSETRON HCL ODT 4 MG TABLET PO (08:42)
[2025-07-17] MEDS: HYDROmorphone HCL INJ (*CRX) 2 MG/ML VIAL 0.5 MG IM (08:42)
--- OUTSIDE RECORDS SUMMARY | 2025-07-17 08:52 | XMS_ITS | Clinical Summary ---
Author Organization [facility] Address [address] [place] [address] Phone Care Team Providers Care Study Director Name Role Phone Radha Kaminski Primary Care Provider [phone] Allergies Active Allergy Reactions Criticality Noted Date Comments Prochlorperazine Other (see comments),Shortness of breath High 11/26/2016 Lockjaw Lockjaw Medications aspirin (ST [place]UDLEY) 81 MG EC tablet Take 81 mg by mouth daily Active buPROPion XL (WELLBUTRIN XL) 150 MG 24 hr tablet 2 Active Cholecalciferol (Vitamin D3) 1.25 MG (95925 UT) capsule Twice a week 2 Active [...] Done Comments Influenza Vaccine (#1) [address] [place] [address] Care Teams Study Director Relationship Specialty Start Date End Date Radha Kaminski [facility] [place] [phone] PCP - General Family Medicine 06/21/22
--- OUTSIDE RECORDS SUMMARY | 2025-07-17 08:52 | XMS_ITS | Clinical Summary ---
Author Organization [facility] Address [address] [place] [address] Care Team Providers Care Professor Of Exercise Science Name Role Phone Radha Kaminski MYRON-MANAGER [place] Primary Care Provider [phone] Harmony Mcrae MD Unavailable Source Comments [facility],non-owned Affiliates and Associated Physician Practices is amultiple site organization consisting of ambulatory clinics and hospital sitesin [place], [place], [place] and [place]. This disclosure is being madepursuant to the Care Everywhere program and may not contain all information available regarding this patient. Last updated 18.[facility] Allergies Active Allergy Reactions Criticality Noted [...] fluticasone propionate (FLONASE) 50 MCG/ACT nasal spray Pana 2 (two) sprays into each nostril once daily Active blood glucose (GigOwlTOUCH ULTRA) test strip USE TO TEST THREE TIMES A DAY 1 Active estradiol (ESTRACE) 2 MG tablet Take 1 (one) tablet by mouth every 24 hours Active Multiple Vitamins-[place] als (MULTI VITAMIN/MINERA LS) TABS Take 1 (one) tablet by mouth once daily Active [place] [employer]-3 Fatty Acids (FISH OIL) 1000 MG capsule Take 1 (one) capsule by mouth once daily Active Cholecalcifero l 1.25 MG (30714 UT) Take 1 capsule by mouth every [...] naloxone HCl (Narcan) 4 MG/0.1ML nasal spray Pana 1 (one) spray into the nose Active [...] day by topical route. Active HYDROcodone-ac etaminophen ([place]) 5-325 MG tablet Take 1 (one) tablet by mouth two times daily at 4am and 4pm Active indomethacin (Indocin) 50 MG capsule TAKE 1 CAPSULE BY MOUTH THREE TIMES A DAY ADMINISTER WITH FOOD OR MILK Active mupirocin (Bactroban) 2 % ointment 1 APPLIC TOPICALLY TWICE A DAY Active nystatin (Mycostatin) 780039 UNIT/ML suspension Take 5 mL 4 times [...] on file Legal Sex Female 5:06 PM ATHLETIC GEAR CUSTODIAN Gender Identity Not on file Sexual Orientation Not on file Last Filed Vital Signs Vital Sign Reading Time Taken Comments Blood Pressure 122/68 10/06/2023 2:03 PM ATHLETIC GEAR CUSTODIAN Pulse 79 10/06/2023 2:03 PM ATHLETIC GEAR CUSTODIAN Temperature 36.6 C (97.9 F) 01/07/2022 2:03 PM CDT Respiratory Rate 16 08/02/2023 2:35 PM ATHLETIC GEAR CUSTODIAN Oxygen Saturation 97% 08/02/2023 2:35 PM ATHLETIC GEAR CUSTODIAN Inhaled Oxygen Concentration - - Weight 93.9 kg (207 lb) 10/06/2023 2:03 PM ATHLETIC GEAR CUSTODIAN Height 170.2 cm (5' 7) 10/06/2023 2:03 PM ATHLETIC GEAR CUSTODIAN Body Mass Index 32.42 10/06/2023 2:03 PM ATHLETIC GEAR CUSTODIAN Plan of Treatment Health Maintenance Due Date [...] COMPREHENSIVE METABOLIC PANEL Routine 08/02/2023 3:29 PM ATHLETIC GEAR CUSTODIAN Arthralgia, unspecified joint HEPATITIS SCREEN ACUTE ([facility]) Routine 08/02/2023 3:28 PM ATHLETIC GEAR CUSTODIAN Arthralgia, unspecified joint from Last 3 Months or Most Recently Relevant to Health Maintenance Results * (ABNORMAL) COMPREHENSIVE METABOLIC PANEL (08/02/2023 3:29 PM ATHLETIC GEAR CUSTODIAN) Glucose 95 70 - 99 mg/dL [facility] [...] BLOOD SPECIMEN / Unknown 08/02/2023 3:29 PM ATHLETIC GEAR CUSTODIAN 08/02/2023 Narrative Resulting Agency Comment [facility] [address] [facility] [id number] Harmony Mcrae MD LAB - CHEMISTRY ORDERABLES Final Result [facility] INSURANCE BILL [address] [place] [address] * HEPATITIS SCREEN ACUTE ([facility]) (08/02/2023 3:28 PM ATHLETIC GEAR CUSTODIAN) Hepatitis A Virus Antibody IgM Negative Negative [facility] INSURANCE BILL Hepatitis B Virus Surface Antigen Negative Negative [facility] INSURANCE BILL Hepatitis B Core Virus Antibody IgM Negative Negative [facility] INSURANCE BILL Hepatitis C Antibody Non Reactive Non Reactive [facility] INSURANCE BILL Blood BLOOD SPECIMEN / Unknown 08/02/2023 3:28 PM ATHLETIC GEAR CUSTODIAN 08/02/2023 Narrative Resulting Agency Comment Lab Testing performed at: [facility] [id number] Harmony Mcrae MD LAB - CHEMISTRY ORDERABLES Final Result [facility] INSURANCE BILL [address] [place] [address] from Last 3 Months or Most Recently Relevant to Health Maintenance Insurance Care Teams Professor Of Exercise Science Relationship Specialty Start Date End Date Yamilex RadhaMYRON-SCOTT [address] [facility] [address] [place] [phone] PCP - General Nurse Practitioner Family 12/03/21 [place] [address] [place] [address] [place] [phone] Rheumatology 12/03/21
--- OUTSIDE RECORDS SUMMARY | 2025-07-17 08:52 | XMS_ITS | Encounter Summary ---
Author Organization [facility] Address [address] [facility] [facility] [place] [address] Care Team Providers Care Assistant Plant Controller Name Role Phone Radha Kaminski MYRON-SENIOR BIOINFORMATICS SPECIALIST Primary Care Provider [phone] Harmony Mcrae MD Unavailable Encounter Details Date Type Department Care Team (Late st Contact Info) Description 06/20/2023 Lab Requisition [facility] - DermPath Lab [address] [facility], [place] [address] Andrzej Aguilar MD [address] [place] [address] Social History Tobacco Use Types Packs/Day Years Used Date Smoking Tobacco: Never Smokeless Tobacco: Never Alcohol Use Standard Drinks/Week Comments Never 0 (1 standard drink = 0.6 oz pur e alcohol) Comments Unknown Sex and Gender Information Value Date Recorded Sex Assigned at Not on file Legal Sex Female 5:06 PM BUSINESS ANALYTICS FACULTY MEMBER Gender Identity Not on file Sexual Orientation Not on file documented as of this encounter Plan of Treatment Not on file documented as of this encounter Procedures Procedure Name Priority Date/Time Associated Diagnosis Comments DERMATOPATHOLOGY Routine 06/20/2023 12:0 0 AM CDT documented in this encounter Results * DERMATOPATHOLOGY (06/20/2023 12:00 AM CDT) Case Report Dermatopathology Report Case: [id number] Authorizing Provider: Andrzej Aguilar MD Collected: 06/20/2023 12:00 AM Ordering Location: [facility] DermPath Lab Received: 06/21/2023 [...] characteristic determined by the Dermatopathology Laboratory at [facility], directed by Dr. Jean-Pierre Miller. These tests need not be, and therefore are not, approved by the [place] Food and Drug Administration. The tests are used for clinical purposes. Billing Codes Specimen Charges Stain Charges 08963 1 17830 1 4:35 PM CDT DERMATOPATHOLOGY LABORATORY Embedded Images 4:35 PM CDT DERMATOPATHOLOGY LABORATORY Pathology/Cytolog y TISSUE SPECIMEN FROM SKIN / Unknown 06/20/2023 06/21/2023 6:10 AM CDT us Andrzej Aguilar MD LAB - PATHOLOGY/CYTOLOGY ORDERAB LES Final Result DERMATOPATHOLOGY LABORATORY [facility] - Department of Dermatology [facility] Medicine [address] [facility]rd Floor [address] [phone] documented in this encounter Visit Diagnoses Not on filedocumented in this encounter Care Teams Assistant Plant Controller Relationship Specialty Start Date End Date Radha Kaminski APRN-SENIOR BIOINFORMATICS SPECIALIST [address] [facility] [address] [place] [phone] PCP - General Nurse Practitioner Family 12/03/21 [place] [address] [place] [address] [place] [phone] Rheumatology 12/03/21 documented as of this encounter
--- OUTSIDE RECORDS SUMMARY | 2025-07-17 08:52 | XMS_ITS | Clinical Summary ---
Author Organization [facility] Address [address] [place] [address] Care Team Providers Care Civil Technician Name Role Phone Roland Rojas DO [...] region 05/17/2023 Coronary artery disease invo lving [place] coronary artery of [place] heart without angina pectoris 04/19/2023 Essential hypertension [...] (01/24/2024): Added automatically from request for surgery [id number] Nonspecific abnormal results of function study o [...] Description 06/14/2025 2:30 PM CDT Office Visit [facility] Cardiology at [address] [place] [address] Rhett Ramírez MD Coronary artery disease involving [place] coronary artery of [place] heart without angina pectoris (Primary Dx); Hyperlipidemia [...] on file Legal Sex Female 7:45 PM TENT WORKER Gender Identity Not on file Sexual Orientation [...] BLOOD ORDERABLES Final Re sult AMANUEL LOPEZ [address] [facility] Department [place] [address] from Last 3 Months or Most Recently Relevant to Health Maintenance Insurance [email or web address] OPEN ACCESS CIGNA OPEN ACCESS IDPA CIGNA OPEN ACCESS CIGNA OPEN ACCESS Care Teams Civil Technician Relationship Specialty Start Date End Date Roland Rojas DO [address] [place] [address] PCP - General Family Medicine 01/24/24
--- OUTSIDE RECORDS SUMMARY | 2025-07-17 08:53 | XMS_ITS | Encounter Summary ---
Author Organization [facility] Address [address] [place] [address] Care Team Providers Care Rotary Derrick Operator Name Role Phone Aneesh Dickens MD Primary Care Provider [phone] Radha Kaminski NP Primary Care Provider [phone] Encounter Details Date Type Department Care Team (Late st Contact Info) Description 04/07/2022 Prep for Procedure [facility] [address] [place] [address] Harley Phillips, DPM [address] [place] [phone] Social History Tobacco Use Types Packs/Day [...] Sex Assigned at Female 08/12/2020 10:34 AM EXECUTIVE OFFICER Legal Sex Female 10:58 PM EXECUTIVE OFFICER Gender Identity Female 08/12/2020 10:34 AM EXECUTIVE OFFICER Sexual Orientation Straight 08/12/2020 10 :34 AM EXECUTIVE OFFICER COVID-19 Exposure Response Date Recorded In the last 10 days, have yo u been in contact with someone who was confirmed or suspected to have Coronavirus/COVID-19? No / Unsure 04/09/2022 12:05 PM CDT documented as of this encounter Plan of Treatment Upcoming Encounters Date Type Department Care Team (Late st Contact Info) Description 07/17/2025 2:00 PM CDT Office Visit [facility] Orthopedic Surgery-[place] [address] [place] [address] [place] [address] [place] [address] documented as of this encounter Visit Diagnoses Diagnosis Pre-op testing- Primary Preoperative examination, unspecified documented in this encounter Additional Health Concerns Infection Onset Date Last Indicated Resolved Time COVID-19 Rule Out 04/09/2022 04/09/2022 04/11/2022 12:05 PM CDT Assessment Noted Time PHQ-9 Depression Total Score: 0 08/12/20 2:09 PM EXECUTIVE OFFICER documented as of this encounter Care Teams Rotary Derrick Operator Relationship Specialty Start Date End Date Aneesh Dickens MD [address] [place] [address] PCP - General FAMILY PRACTICE 04/10/19 04/08/22 Radha Kaminski NP [facility] [place] [address] PCP - General NURSE PRACTITIONER 04/09/22 documented as of this encounter
--- OUTSIDE RECORDS SUMMARY | 2025-07-17 08:53 | XMS_ITS | Encounter Summary ---
Author Organization [facility] Address [address] [place] [address] Care Team Providers Care Gis Mapping Technician Name Role Phone Aneesh Dickens MD Primary Care Provider [phone] Radha Kaminski NP Primary Care Provider [phone] Encounter Details Date Type Department Care Team (Late st Contact Info) Description 05/19/2021 Prep for Procedure [facility] [address] [place] [address] Harley Phillips, DPM [address] [place] [phone] Social History Tobacco Use Types Packs/Day [...] Sex Assigned at Female 08/12/2020 10:34 AM BRANCH MANAGER Legal Sex Female 10:58 PM BRANCH MANAGER Gender Identity Female 08/12/2020 10:34 AM BRANCH MANAGER Sexual Orientation Straight 08/12/2020 10 :34 AM BRANCH MANAGER COVID-19 Exposure Response Date Recorded In the last month, have you been in contact with someone who was confirmed or suspected to have Coronavirus / COVID-19? No / Unsure 05/19/2021 3:46 PM CDT documented as of this encounter Plan of Treatment Upcoming Encounters Date Type Department Care Team (Late st Contact Info) Description 07/17/2025 2:00 PM CDT Office Visit [facility] Orthopedic Surgery-[place] [address] [place] [address] [place] [address] [facility] [place] [phone] documented as of this encounter Results * PRE-SURGICAL/PRE-PROCEDURE CORONAVIRUS (COVID 19) (05/23/2021 9:06 AM CDT) SPECIMEN SOURCE NASAL 8:58 AM CDT [facility] CORONAVIRUS SARS COV 2 PCR (RESP) NEGATIVE NEGATIVE 05/24/2021 11:44 AM CDT [facility] Comment: THE SARS-CoV-2 TEST HAS BEEN AUTHORIZED BY THE FDA UNDER AN EUA FOR USE BY AUTHORIZED LABORATORIES. PERFORMED BY NUCLEIC ACID AMPLIFICATION PCR FIRST TEST YES 05/23/2021 8:58 AM CDT [facility] EMPLOYED IN HEALTHCARE NO 05/23/2021 8:58 AM CDT [facility] SYMPTOMATIC DEFINED BY CDC NO 05/23/2021 8:58 AM CDT [facility] HOSPITALIZATION STATUS NO 05/23/2021 8:58 AM CDT [facility] PATIENT IN ICU NO 05/23/2021 8:58 AM CDT [facility] RESIDENT OF [facility] NO 05/23/2021 8:58 AM CDT [facility] NOT 05/23/2021 8:58 AM CDT [facility] NASAL STRUCTURE / Unknown 05/23/2021 9:06 AM CDT Harley Phillips DPM MICROBIOLOGY - GENERAL ORDERABLE S Final Result [facility] (H) [facility] [address] [place] [address], [facility] (D) [facility] [address] [place] [address], [place] [phone] documented in this encounter Visit Diagnoses Diagnosis Pre-op testing- Primary Preoperative examination, unspecified documented in this encounter Additional Health Concerns Infection Onset Date Last Indicated Resolved Time COVID-19 Rule Out 05/23/2021 05/23/2021 05/24/2021 11:44 AM CDT COVID-19 Rule Out 04/09/2022 04/09/2022 04/11/2022 12:05 PM CDT documented as of this encounter Care Teams Gis Mapping Technician Relationship Specialty Start Date End Date Aneesh Dickens MD [address] [place] [address] PCP - General FAMILY PRACTICE 04/10/19 04/08/22 Radha Kaminski NP [facility] [place] [phone] PCP - General NURSE PRACTITIONER 04/09/22 documented as of this encounter
--- OUTSIDE RECORDS SUMMARY | 2025-07-17 08:53 | XMS_ITS | Clinical Summary ---
Author Organization [facility] Address [address] [place] [address] Care Team Providers Care Car Rental Clerk Name Role Phone Radha Kaminski NP Primary Care Provider [phone] Allergies Active Allergy Reactions Criticality Noted Date [...] controlled type 2 diabetes mellitus with hyperglycemia ([facility]) Use to test blood sugars three times [...] neuropathy, without long-term current use of insulin ([facility]) TAKE 1 CAPSULE THREE TIMES A DAY [...] Uncontrolled type 2 diabetes mellitus with hyperglycemia ([facility]) USE TO TEST THREE TIMES A DAY [...] ons:Uncontrolled type 2 diabetes mellitus with hyperglycemia ([facility]) Inject 3 mg into the skin once a week. 2 mL 6 09/06/20 24 Active Active Problems Problem Noted Date Diagnosed Date S/P peroneal tendon repair 12/22/2022 Traumatic rupture of peronea l tendon, right, subsequent encounter 11/04/2022 Overview (11/04/2022): Added automatically from request for surgery [id number] Right peroneal tendonosis 05/07/2022 Aortic valve regurgitation [...] Sex Assigned at Female 08/12/2020 10:34 AM APPEALS REFEREE Legal Sex Female 10:58 PM APPEALS REFEREE Gender Identity Female 08/12/2020 10:34 AM APPEALS REFEREE Sexual Orientation Straight 08/12/2020 10 :34 AM APPEALS REFEREE Last Filed Vital Signs Vital Sign Reading Time Taken Comments Blood Pressure 128/80 09/06/2024 2:10 PM APPEALS REFEREE Pulse 93 09/06/2024 2:10 PM APPEALS REFEREE Temperature 36.2 C (97.2 F) 09/09/2023 2:19 PM APPEALS REFEREE Respiratory Rate 16 11/26/2022 1:40 PM APPEALS REFEREE Oxygen Saturation 97% 09/06/2024 2:10 PM APPEALS REFEREE Inhaled Oxygen Concentration - - Weight 107.3 kg (236 lb 9.6 oz) 09/06/2024 2:10 PM APPEALS REFEREE Height 170.2 cm (5' 7) 09/06/2024 2:10 PM APPEALS REFEREE Body Mass Index 37.06 09/06/2024 2:10 PM APPEALS REFEREE Plan of Treatment Upcoming Encounters Date Type Department Care Team (Late st Contact Info) Description 07/17/2025 2:00 PM CDT Office Visit [facility] Medical Group Orthopedic Surgery[place] [address] [place] [address] Kyler Ocasio, [place] [address] [place] [address] Health Maintenance Due Date Last [...] Vaccines (1 of 2) 2018 PHQ-2 (Physician [place]) 09/19/2024 01/09/2024 Hemoglobin A1C 03/07/2025 09/06/2024, 1210/2022, [...] this topic Medical Devices Implanted Type Area Indirect Sales Representative Device Identifier Shelf Expiration Date Model / Serial / Lot [place] Suture Arthrex Dx Fibertak Needle Sterile Latex Free - [id number] Implanted:Qty: 1 on 05/26/2021 by Harley Phillips DPM at [facility] [place] [employer] [id number] 11/16/2025 [id number] / / [id number] Cage Cage Spine Cervical Cage Cage Spine Lumbar Screw Screw Left: Knee Stimulator Stimulator Implant Description:Medtronic InterS jade implant Decellurized Dermis Implanted:Qty: 1 on 05/26/2021 by Harley Phillips DPM at [facility] [id number] 08/07/2023 / / [id number] Implant Peroneus Longus Allosource - [id number] Implanted:Qty: 1 on 11/26/2022 by Harley Phillips DPM at [facility] Right: Ankle [employer]OURCE [id number] 10/10/2027 [id number] / / [id number] Flex Band Dynamic Matrix Implanted:Qty: 1 on 11/26/2022 by Harley Phillips DPM at [facility] Right: Ankle [id number] 08/18/2026 [id number] / [id number] / [id number] Description:Company PunchTab Flexband Dynamic Matrix Implanted:Qty: 1 on 11/26/2022 by Harley Phillips DPM at [facility] Right: Ankle [id number] 08/18/2026 [id number] / [id number] / Description:artelon company Procedures Procedure Name Priority Date/Time Associated Diagnosis Comments HEMOGLOBIN, GLYCOSYLATED Routine 09/06/2024 Uncontrolled type 2 diabetes mellitus with hyperglycemia ([facility]) DIABETIC RETINOPATHY EXAM (NEGATIVE)(SCAN ORDER) Routine 06/20/2023 from Last 3 Months or Most Recently Relevant to Health Maintenance Results * A1C (BACK OFFICE) (09/06/2024) HGB A1C 7.0 % -[address] ENOC 09/06/2024 Eleanor Dodge MD LABORATORY Final Re sult [facility], [place] [address] [place] [address], * DIABETIC RETINOPATHY EXAM (NEGATIVE) (06/20/2023) us Doc Med Group Scanned SCANNING Final Resu lt [facility] ONBASE from Last 3 Months [...] 2:16 PM 05/26/2021 5:19 PM Care Teams Car Rental Clerk Relationship Specialty Start Date End Date Radha Kaminski NP [address] [place] [address] [place] [address] PCP - General NURSE PRACTITIONER 04/09/22
--- OUTSIDE RECORDS SUMMARY | 2025-07-17 08:53 | XMS_ITS | Encounter Summary ---
Author Organization [facility] Address [address] [place] [address] Care Team Providers Care Nib Finisher Name Role Phone SureshneginRadha NP Primary Care Provider [phone] Reason for Visit * Reason Onset Date Comments Called To Cancel Office Appt. 12/17/2024 Encounter Details Date Type Department Care Team (Late st Contact Info) Description 12/17/2024 Telephone [facility] Medical Group Diabetes and Endocrinology - [address] [address] Eleanor Dodge MD [address] [place] [phone] Called To Cancel Office Appt. Social [...] Sex Assigned at Female 08/12/2020 10:34 AM WATER HAULER Legal Sex Female 10:58 PM WATER HAULER Gender Identity Female 08/12/2020 10:34 AM WATER HAULER Sexual Orientation Straight 08/12/2020 10 :34 AM WATER HAULER documented as of this encounter Progress Notes * Mattie Fox - 12/17/2024 10:31 AM CDT Caller name: Niles Heredia Call back/ext. #: [phone] MyChart: Yes- please communicate with the caller via Netskope regarding this matter Call details: Called and cancelled her appt for tomorrow at 9:40 due to other conflicts. She states that she will call back to reschedule when she gets her calendar. documented in this encounter Plan of Treatment Upcoming Encounters Date Type Department Care Team (Late st Contact Info) Description 07/17/2025 2:00 PM CDT Office Visit [facility] Medical Group Orthopedic Surgery-[place] [address] [place] [address] [place] [address] [place] [address] documented as of this encounter Visit Diagnoses Not on filedocumented in this encounter Additional Health Concerns Assessment Noted Time PHQ-9 Depression Total Score: 0 08/12/20 21 2:09 PM WATER HAULER documented as of this encounter Care Teams Nib Finisher Relationship Specialty Start Date End Date Radha Kaminski NP [facility] [place] [phone] PCP - General NURSE PRACTITIONER 04/09/22 documented as of this encounter
--- NOTE | 2025-07-17 09:13 | PC.NURSE ---
On 07/17/25, the student, [loc beck ], provided care and completed [facility] on this patient. I have reviewed the student's documentation and agree with the findings.
--- NOTE | 2025-07-17 09:14 | PC.NURSE ---
[id number] nurse spoke with Dr Carreon's orthopedic office to request an earlier appt for pt having right knee pain pt was given an appt today at 2 Pm in [facility]
== END 2025-07-17 09:10 | disposition home or self-care (01) ==
PROVIDERS: Emergency Provider Internal Medicine Critical Care Medicine; PCP Family Medicine
DX: M25.561 Pain in right knee (principal); E78.5 Hyperlipidemia, unspecified; E11.9 Type 2 diabetes mellitus without complications; Z79.899 Other long term (current) drug therapy
CPT/HCPCS: 96372; 99283; A9270; J1171

== ENCOUNTER 2025-07-29 12:50 | Outpatient (NON) | payer OTHER, MEDICAID, SELFPAY ==
--- OUTSIDE RECORDS SUMMARY | 2025-07-29 13:06 | XMS_ITS | Encounter Summary ---
Author Organization [facility] Address [address] [place] [address] Care Team Providers Care Metal Box Maker Name Role Phone Radha Kaminski MYRON-BID ANALYST Primary Care Provider [phone] Harmony Mcrae MD Unavailable Encounter Details Date Type Department Care Team (Late st Contact Info) Description 06/20/2023 Lab Requisition [facility] - DermPath Lab [address], [place] [address] Andrzej Aguilar MD [address] [place] [address] Social History Tobacco Use Types Packs/Day Years Used Date Smoking Tobacco: Never Smokeless Tobacco: Never Alcohol Use Standard Drinks/Week Comments Never 0 (1 standard drink = 0.6 oz pur e alcohol) Comments Unknown Sex and Gender Information Value Date Recorded Sex Assigned at Not on file Legal Sex Female 5:06 PM CERTIFIED CORPORATE TRAVEL EXECUTIVE Gender Identity Not on file Sexual Orientation Not on file documented as of this encounter Plan of Treatment Not on file documented as of this encounter Procedures Procedure Name Priority Date/Time Associated Diagnosis Comments DERMATOPATHOLOGY Routine 06/20/2023 12:0 0 AM CDT documented in this encounter Results * DERMATOPATHOLOGY (06/20/2023 12:00 AM CDT) Case Report Dermatopathology Report Case: [id number] Authorizing Provider: Andrzej Aguilar MD Collected: 06/20/2023 12:00 AM Ordering Location: [facility] DermPath Lab Received: 06/21/2023 06:10 [...] characteristic determined by the Dermatopathology Laboratory at [facility], directed by Dr. Jean-Pierre Miller. These tests need not be, and therefore are not, approved by the [place] Food and Drug Administration. The tests are used for clinical purposes. Billing Codes Specimen Charges Stain Charges 92673 1 63600 1 4:35 PM CDT DERMATOPATHOLOGY LABORATORY Embedded Images 4:35 PM CDT DERMATOPATHOLOGY LABORATORY Pathology/Cytolog y TISSUE SPECIMEN FROM SKIN / Unknown 06/20/2023 06/21/2023 6:10 AM CDT us Andrzej Aguilar MD LAB - PATHOLOGY/CYTOLOGY ORDERAB LES Final Result DERMATOPATHOLOGY LABORATORY [facility] - Department of Dermatology [facility] Medicine [address], [address] [phone] documented in this encounter Visit Diagnoses Not on filedocumented in this encounter Care Teams Metal Box Maker Relationship Specialty Start Date End Date Radha Kaminski APRN-BID ANALYST [address] [facility] [address] [place] [phone] PCP - General Nurse Practitioner Family 12/03/21 [place] [address] [place] [address] [place] [phone] Rheumatology 12/03/21 documented as of this encounter
--- OUTSIDE RECORDS SUMMARY | 2025-07-29 13:06 | XMS_ITS | Clinical Summary ---
Author Organization [facility] [address] Address [address] [place] [address] Care Team Providers Care Feeder Driver Name Role Phone Roland Rojas DO Primary [...] total) by mouth daily 01/30/20 24 Active rosuvastatin (CRESTOR) 40 mg tablet TAKE 1 TABLET BY MOUTH EVERY DAY AT NIGHT 90 tablet 3 02/26/20 25 Active evolocumab (Repatha Syringe) syringe syringeIndicat ions:Coronary arterioscleros is,Dyslipidemi a INJECT 1 ML (140 MG TOTAL) UNDER THE SKIN EVERY 14 DAYS. 2 mL 6 07/08/20 25 Active magnesium oxide (MAG-OX) 400 mg (241.3 mg elemental magnesium) tabletIndicati ons:hypomagnes emia Take 1 tablet (400 mg total) by mouth daily 90 tablet 2 07/25/20 25 Active magnesium oxide (MAG-OX) 400 mg (241.3 mg elemental magnesium) tabletIndicati ons:hypomagnes emia Take 1 tablet (400 mg total) by mouth daily 90 tablet 11/29/19 25 025 Discontinued(Re order) evolocumab (REPATHA) syringe syringeIndicat ions:Coronary arterioscleros is,Dyslipidemi [...] region 05/17/2023 Coronary artery disease invo lving [place] coronary artery of [place] heart without angina pectoris 04/19/2023 Essential hypertension [...] (01/24/2024): Added automatically from request for surgery [id number] Nonspecific abnormal results of function study o [...] Description 06/14/2025 2:30 PM CDT Office Visit [facility] Medical Group Cardiology at [address] [place] [address] Rhett Ramírez MD Coronary artery disease involving [place] coronary artery of [place] heart without angina pectoris (Primary Dx); Hyperlipidemia [...] on file Legal Sex Female 7:45 PM SEWER AND CUTTER FINGER BUFF MATERIAL Gender Identity Not on file Sexual Orientation [...] Capillary blood 06/14/2025 2 :58 PM CDT us Rhett Ramírez MD POINT OF CARE [...] LAB BLOOD ORDERABLES Final Re sult [facility] [address] [facility] Department [place] [address] from Last 3 Months or Most Recently Relevant to Health Maintenance [place] [address] [place] [address] OPEN ACCESS C[employer] OPEN ACCESS [facility] CIGNA OPEN ACCESS [employer] OPEN ACCESS Care Teams Feeder Driver Relationship Specialty Start Date End Date Roland Rojas DO [address] [place] [address] PCP - General Family Medicine 01/24/24
--- OUTSIDE RECORDS SUMMARY | 2025-07-29 13:06 | XMS_ITS | Clinical Summary ---
Author Organization [facility] Address [address] [facility] [place] [address] Care Team Providers Care System Support Analyst Name Role Phone Radha Kaminski MYRON-COREMAKING SUPERVISOR Primary Care Provider [phone] Harmony Mcrae MD Unavailable Source Comments [facility],non-owned Affiliates and Associated Physician Practices is amultiple site organization consisting of ambulatory clinics and hospital sitesin [place], [place], [place] and [place]. This disclosure is being madepursuant to the Care Everywhere program and may not contain all information available regarding this patient. Last updated 18.[facility] Allergies Active Allergy Reactions Criticality [...] fluticasone propionate (FLONASE) 50 MCG/ACT nasal spray [place] 2 (two) sprays into each nostril once daily Active blood glucose (Advanced Electron BeamsTOUCH ULTRA) test strip USE TO TEST THREE TIMES A DAY 1 Active estradiol (ESTRACE) 2 MG tablet Take 1 (one) tablet by mouth every 24 hours Active Multiple Vitamins-Motor Teacher als (MULTI VITAMIN/MINERA LS) TABS Take 1 (one) tablet by mouth once daily Active Highlands-3 Fatty Acids (FISH OIL) 1000 MG capsule Take 1 (one) capsule by mouth once daily Active Cholecalcifero l 1.25 MG (17339 UT) Take 1 capsule by mouth every [...] naloxone HCl (Narcan) 4 MG/0.1ML nasal spray Bigelow 1 (one) spray into the nose Active [...] day by topical route. Active HYDROcodone-ac etaminophen ([place]) 5-325 MG tablet Take 1 (one) tablet by mouth two times daily at 4am and 4pm Active indomethacin (Indocin) 50 MG capsule TAKE 1 CAPSULE BY MOUTH THREE TIMES A DAY ADMINISTER WITH FOOD OR MILK Active mupirocin (Bactroban) 2 % ointment 1 APPLIC TOPICALLY TWICE A DAY Active nystatin (Mycostatin) 754747 UNIT/ML suspension Take 5 mL 4 times [...] on file Legal Sex Female 5:06 PM COLOR SHOP HELPER Gender Identity Not on file Sexual Orientation Not on file Last Filed Vital Signs Vital Sign Reading Time Taken Comments Blood Pressure 122/68 10/06/2023 2:03 PM COLOR SHOP HELPER Pulse 79 10/06/2023 2:03 PM COLOR SHOP HELPER Temperature 36.6 C (97.9 F) 01/07/2022 2:03 PM CDT Respiratory Rate 16 08/02/2023 2:35 PM COLOR SHOP HELPER Oxygen Saturation 97% 08/02/2023 2:35 PM COLOR SHOP HELPER Inhaled Oxygen Concentration - - Weight 93.9 kg (207 lb) 10/06/2023 2:03 PM COLOR SHOP HELPER Height 170.2 cm (5' 7) 10/06/2023 2:03 PM COLOR SHOP HELPER Body Mass Index 32.42 10/06/2023 2:03 PM COLOR SHOP HELPER Plan of Treatment Health Maintenance Due Date [...] COMPREHENSIVE METABOLIC PANEL Routine 08/02/2023 3:29 PM COLOR SHOP HELPER Arthralgia, unspecified joint HEPATITIS SCREEN ACUTE ([facility]) Routine 08/02/2023 3:28 PM COLOR SHOP HELPER Arthralgia, unspecified joint from Last 3 Months or Most Recently Relevant to Health Maintenance Results * (ABNORMAL) COMPREHENSIVE METABOLIC PANEL (08/02/2023 3:29 PM COLOR SHOP HELPER) Glucose 95 70 - 99 mg/dL [facility] [...] BLOOD SPECIMEN / Unknown 08/02/2023 3:29 PM COLOR SHOP HELPER 08/02/2023 Narrative Resulting Agency Comment [facility] [address] [facility] [id number] Harmony Mcrae MD LAB - CHEMISTRY ORDERABLES Final Result [facility] INSURANCE BILL [address] [place] [address] * HEPATITIS SCREEN ACUTE ([facility]) (08/02/2023 3:28 PM COLOR SHOP HELPER) Hepatitis A Virus Antibody IgM Negative Negative [facility] INSURANCE BILL Hepatitis B Virus Surface Antigen Negative Negative [facility] INSURANCE BILL Hepatitis B Core Virus Antibody IgM Negative Negative [facility] INSURANCE BILL Hepatitis C Antibody Non Reactive Non Reactive [facility] INSURANCE BILL Blood BLOOD SPECIMEN / Unknown 08/02/2023 3:28 PM COLOR SHOP HELPER 08/02/2023 Narrative Resulting Agency Comment Lab Testing performed at: Lab[address] [id number] Harmony Mcrae MD LAB - CHEMISTRY ORDERABLES Final Result [facility] INSURANCE BILL [address] [place] [address] from Last 3 Months or Most Recently Relevant to Health Maintenance Insurance Care Teams System Support Analyst Relationship Specialty Start Date End Date Yamilex RadhaMYRON-SCOTT [address] [facility] [address] [place] [phone] PCP - General Nurse Practitioner Family 12/03/21 [place] [address] [place] [address] [place] [phone] Rheumatology 12/03/21
--- OUTSIDE RECORDS SUMMARY | 2025-07-29 13:06 | XMS_ITS | Data Portability ---
Author Organization [facility] OFFICE Address [address] [place] [address] Assessment Encounter Date Assessment Date Assessment LastModified [...] current medications, and medical follow-up as noted. [email or web address] Not available 02/03/2022 11:19:05 03/03/2022 03/03/2022 Discussed with patient findings, diagnosis, and prognosis. Discussed evaluation and treatment options including risks and benefits with patient, and patient expressed understanding. The following interventions were recommended: heart healthy low-fat, low-sodium diet, continue regular exercise,maintain appropriate weight, continue current medications, and medical follow-up as noted. [email or web address] Not available 03/03/2022 17:54:51 05/05/2022 05/05/2022 Discussed with patient findings, diagnosis, and prognosis. Discussed evaluation and treatment options including risks and benefits with patient, and patient expressed understanding. The following interventions were recommended: heart healthy low-fat, low-sodium diet, continue regular exercise,maintain appropriate weight, continue current medications, and medical follow-up as noted. [email or web address] Not available 05/05/2022 15:03:06 10/27/2022 10/27/2022 Discussed with patient findings, diagnosis, and prognosis. Discussed evaluation and treatment options including risks and benefits with patient, and patient expressed understanding. The following interventions were recommended: heart healthy low-fat, low-sodium diet, continue regular exercise,maintain appropriate weight, continue current medications, and medical follow-up as noted. Not available 10/27/2022 12:40:07 01/05/2023 01/05/2023 Discussed with patient findings, diagnosis, and prognosis. Discussed evaluation and treatment options including risks and benefits with patient, and patient expressed understanding. The following interventions were recommended: heart healthy low-fat, low-sodium diet, continue regular exercise,maintain appropriate weight, continue current medications, and medical follow-up as noted. Not available 01/05/2023 14:29:08 Plan of Treatment Reminders Order Date Submit Date Provider Last Modified By Organization Details Last Modified Time Details Appointments None recorded. Lab None recorded. Referral None recorded. Procedures None recorded. Surgeries None recorded. Imaging None recorded. Medication Orders rosuvastati n 20 mg tablet 2021 [facility], [address] [place] [address], [address], 17:57:13 magnesium oxide 400 mg (241.3 mg magnesium) tablet 2021 022 [email or web address] [facility], [address] [place] [address], [address], 3 11:14:53 atorvastati n 80 mg tablet 2021 022 [email or web address] [facility], [address] [place] [address], [address], 17:40:55 icosapent ethyl 1 gram capsule 2021 022 [facility], [address] [place] [address], [address], 11:47:50 Patient TargetsNo targets recorded. Patient Instructions Encounter Date Encounter Id Patient Instructions Last Modified By Organization Details Last Modified Time 02/03/2022 [id number] dizziness: care instructions [email or web address] Not available 02/03/2022 11:47:45 leg and ankle edema: care instructions Not available 02/03/2022 11:47:46 high blood pressure: care instructions [email or web address] Not available 02/03/2022 11:47:45 learning about high blood pressure Not available 02/03/2022 11:47:46 aortic valve regurgitation: care instructions [email or web address] Not available 02/03/2022 11:47:45 03/03/2022 [id number] leg and ankle edema: care instructions [email or web address] Not available 03/03/2022 17:57:11 dizziness: care instructions [email or web address] Not available 03/03/2022 17:57:11 high blood pressure: care instructions Not available 03/03/2022 17:57:11 learning about high blood pressure [email or web address] Not available 03/03/2022 17:57:11 aortic valve regurgitation: care instructions [email or web address] Not available 03/03/2022 17:57:11 05/05/2022 [id number] leg and ankle edema: care instructions [email or web address] Not available 05/05/2022 15:19:08 dizziness: care instructions [email or web address] Not available 05/05/2022 15:19:08 high blood pressure: care instructions [email or web address] Not available 05/05/2022 15:19:08 learning about high blood pressure Not available 05/05/2022 15:19:08 aortic valve regurgitation: care instructions [email or web address] Not available 05/05/2022 15:19:08 10/27/2022 [id number] leg and ankle edema: care instructions [email or web address] Not available 10/27/2022 12:49:16 dizziness: care instructions [email or web address] Not available 10/27/2022 12:49:16 high blood pressure: care instructions Not available 10/27/2022 12:49:16 learning about high blood pressure [email or web address] Not available 10/27/2022 12:49:16 aortic valve regurgitation: care instructions [email or web address] Not available 10/27/2022 12:49:16 01/05/2023 [id number] leg and ankle edema: care instructions Not available 01/05/2023 14:34:19 dizziness: care instructions [email or web address] Not available 01/05/2023 14:34:18 high blood pressure: care instructions [email or web address] Not available 01/05/2023 14:34:19 learning about high blood pressure Not available 01/05/2023 14:34:18 aortic valve regurgitation: care instructions [email or web address] Not available 01/05/2023 14:34:18 Reason for Referral [...] observ ation record ed. [facility] [address] [place] [address] [address], [place], [address], 02/23/2022 09:20:36 02/19/20 22 02/10/2022 US, echoc [...] 234. 02/18/22:PT 12.8,INR 1.0,aPTT 24. Alyssa kolb [facility] 07/07/2022 18:09:35 Covid-19 Counseling* : 02/17/22: Not detected Alyssa kolb [place] [facility] 07/07/2022 18:26:45 Problems Name Problem SNOMED Code Status Onset Date Resolution Date Notes Provider Name and Address Organization Details Recorded Time Anxiety 84986314 Active 2016 Maty kolb [place] [facility] 7 16:38:50 Depressive disorder 70367730 Active 2016 Maty kolb [facility] 7 16:38:57 Diabetes mellitus 92861395 Active 2016 Maty kolb [facility] 7 16:39:04 Essential hypertensio n 90138452 Active 2016 Adan kolb [facility] 7 17:47:48 History of obesity 407946671 Active 2016 Elissa kolb [facility] 7 14:54:52 Atypical chest pain 106647908 Active 2016 Elissa kolb [place] [facility] 7 14:55:31 Dyslipidemi a 426800292 Active 2016 Elissa kolb [facility] 7 14:55:41 Hypercholes terolemia 69227048 Active 2016 Elissa kolb [place] [facility] 7 14:56:07 Tachycardia 4808005 Active 2016 Adan kolb [facility] 7 13:42:11 Pain in bilateral legs 2548233848099 9108 Active 2017 Adan Dobbins [facility] [address] 8 14:26:05 Dizziness 080248432 Active 2017 Adan Dobbins [facility] [address] 8 18:15:46 Edema of lower extremity 798971717 Active 2018 Alyssa Fernandez [facility] [address] 9 12:16:31 Aortic valve regurgitati on 50319832 Active 2021 Adan Dobbins [facility] [address] 2 16:09:41 Coronary arterioscle rosis 18642244 Active 2021 Adan Dobbins [facility] [address] 2 17:36:49 Pre-surgery evaluation Active 2021 Adan Dobbins [facility] [address] 2 17:51:16 Problem Notes None recorded. Procedures Surgical History Date Name Laterality Status Provider Name and Address Organization Details Recorded Time Hysterectomy completed [facility] 06/16/2017 16:39:23 Back Surgery completed [facility] 06/16/2017 16:39:34 Knee arthroscopy/surge ry completed [facility] 06/16/2017 16:39:53 Appendectomy completed [facility] 06/16/2017 16:40:10 Imaging Results None recorded. Procedure Notes None recorded. Medical Equipment None Reported. Allergies Allergen ID Allergen Name Allergen Category Reaction Reaction Severity Criticality Documentation Date Start Date Code Code System Note Provider Name and Address Organization Details Recorded Time 35582 lisinopri l medicatio n confusion Not available unabletoasse 01/05/2023 70720 RxNorm Adan Dobbins [facility] [address] 3 14:28:45 5287 prochlorp erazine medicatio n Not available Not available Not available 07/03/2017 8704 RxNorm Elissa Mcnair [facility] [address] 7 14:54:13 Medications Name Sig Start Date [...] e 50 mcg/actua tion nasal spray,sh[employer] pension [place] 1 spray twice a day by intranas [...] Updated DateTime 3 170.18 cm 32 kg/m2 40653.8 4 g 74 /min 16 /min 96 % 96 % 122/82 mm[Hg] Ministerio PHILLIPS - [facility] 3 11:48:12 Date Recorded Body height Body mass index (BMI) Body weight Heart rate Respiratory rate Oxygen saturation Oxygen saturation in Arterial blood by Pulse oximetry Systolic And Diastolic Provider Name and Address Organization Details Last Updated DateTime 3 170.18 cm 29.6 kg/m2 13542.9 6 g 91 /min 16 /min 97 % 97 % 124/82 mm[Hg] Ministerio Arrieta [facility] 3 14:08:15 Date Recorded Body height Body mass index (BMI) Body weight Oxygen saturation Oxygen saturation in Arterial blood by Pulse oximetry Systolic And Diastolic Provider Name and Address Organization Details Last Updated DateTime 2 170.18 cm 34.9 kg/m2 514041. 1 g 99 % 99 % 122/78 mm[Hg] Minister[facility] Ar[facility] 2 11:02:47 Date Recorded Heart rate Provider Name an d Address Organization Details Last Updated DateTime 02/03/2022 81 /min Adan Dobbins [facility] 02/03/2022 11:45:58 Date Recorded Body height Body mass index (BMI) Body weight Heart rate Oxygen saturation Oxygen saturation in Arterial blood by Pulse oximetry Systolic And Diastolic Provider Name and Address Organization Details Last Updated DateTime 2 170.18 cm 36 kg/m2 670833. 25 g 100 /min 94 % 94 % 122/76 mm[Hg] Ministerio Arrieta [facility] 2 15:45:20 Date Recorded Body height Body mass index (BMI) Body weight Heart rate Respiratory rate Oxygen saturation Oxygen saturation in Arterial blood by Pulse oximetry Systolic And Diastolic Provider Name and Address Organization Details Last Updated DateTime 2 170.18 cm 36.8 kg/m2 767473. 21 g 89 /min 16 /min 95 % 95 % 120/72 mm[Hg] Ministerio Arrieta [facility] 2 14:26:37 Social History Question Answer Notes LastModified by Organizat ion Details LastModified Time Tobacco Smoking Status Former Smoker Not Available [facility] 07/22/2020 03:30:40 What Type Of Diet Are You Following? REGULAR [id number] Information not available 07/22/2020 What Was The Date Of Your Most Recent Tobacco Screening? 11/08/2018 [id number] Information not available 07/22/2020 Sex: Unknown Functional Status Question Answer Note LastModified by Organization D etails LastModified Time What is your level of alcohol consumption? None [id number] Information not available 07/22/2020 Mental Status None [...] available 06/16 16:46:07 Mother Myocardial infarction 46 [email or web address] Not available 06/16 17:50:10 Medical History Condition Response Diabetes Y Hyperlipidemia Y Hypertension Y Depression Y Gynecological HistoryNo gynecological history recorded. Obstetrics History GPAL:G 0 P 0 0 0 0 Past Encounters Encounter ID Performer Location Encounter Start Date Encounter Closed Date Diagnosis/Indication Diagnosis SNOMED-CT Code Diagnosis ICD10 Code Diagnosis IMO Codes Diagnosis Note [id number] [facility] [address] [place] [address] [place], [place] [address] [address] 06/16/2017 16:32:06 06/17/2017 13:04:31 Chest pain 44327759 R07.9 Atypical. Stable. May be related to increased BP. Had echo 06/14/17: normal LV systolic function, mild LVH, EF 57%, mild AI. Had exercise nuclear test 06/14/17: below average exercise capacity, no ischemia, LVEF >70%. Diabetes mellitus 138304 09 E11.59 Discussed importance of tight glycemic control to minimize cardiovasc ular disease progressio n. Essential hypertension 67425341 I10 Newly diagnosed. Patient's blood pressure is [...] Began metoprolol succinate 50 mg qd 06/16/17. [id number] Adan Dobbins MD [place] [address] [place] [address] 07/04/2017 12:07:40 07/05/2017 09:37:07 Essential hypertension 39249667 I10 Newly diagnosed. Patient's blood pressure is [...] control with elevated resting HR. Chest pain 82506547 R07. 9 Atypical. Improved. May be related to increased BP. Had echo 06/14/17: normal LV systolic function, mild LVH, EF 57%, mild AI. Had exercise nuclear test 06/14/17: below average exercise capacity, no ischemia, LVEF >70%. Diabetes mellitus 134591 09 E11.59 Discussed importance of tight glycemic control to minimize cardiovasc ular disease progressio n. Hypercholesterolemia 136 17987 E78.2 Needs to keep LDL less than 70, and HDL more than 40. Began atorvastat in 20 mg qHS 07/04/17. FLP 4 wks. Tachycardia 8769942 R00. 0 Follow on metoprolol . Obtain TSH. D-dimer normal 06/14/17. [id number] Adan Dobbins MD [place] [facility] [place] [address] 08/15/2017 11:58:15 08/16/2017 10:27:57 Essential hypertension 17179045 I10 Newly diagnosed. Pt reports elevated BP [...] amlodipine 5 mg qd 08/15/17. Chest pain 30808681 R07. 9 Atypical. Intermitte nt and nonexertio nal. May be related to increased BP. Had echo 06/14/17: normal LV systolic function, mild LVH, EF 57%, mild AI. Had exercise nuclear test 06/14/17: below average exercise capacity, no ischemia, LVEF >70%. Hypercholesterolemia 136 30374 E78.2 Needs to keep LDL less than 70, and HDL more than 40. Began atorvastat in 20 mg qHS 07/04/17. FLP 4 wks. later with LDL 68. Diabetes mellitus 775364 E11.59 Discussed importance of tight glycemic control to minimize cardiovasc ular disease progressio n. Tachycardia 9100690 R00. 0 Improved on metoprolol . Obtain TSH. D-dimer normal 06/14/17. [id number] Adan Dobbins MD [place] [facility] [address] [place] [address] 09/07/2017 14:31:18 09/08/2017 12:52:38 Essential hypertension 61996484 I10 Newly diagnosed. Patient's blood pressure is [...] amlodipine 10 mg qd 09/07/17. Chest pain 06042731 R07. 9 Atypical. Improved. Intermitte nt and nonexertio nal. May be related to increased BP. Had echo 06/14/17: normal LV systolic function, mild LVH, EF 57%, mild AI. Had exercise nuclear test 06/14/17: below average exercise capacity, no ischemia, LVEF >70%. Hypercholesterolemia 136 87485 E78.2 Needs to keep LDL less than 70, and HDL more than 40. Began atorvastat in 20 mg qHS 07/04/17. FLP 4 wks. later with LDL 68. Diabetes mellitus 935369 E11.59 Discussed importance of tight glycemic control to minimize cardiovasc ular disease progressio n. Follows with endo. Tachycardia 6302865 R00. 0 Improved on metoprolol . Obtained TSH 2.42, normal, 08/19/17. D-dimer normal 06/14/17. [id number] Adan Dobbins MD [facility] Office [address] [place] [address] 10/18/2017 12:51:02 10/18/2017 14:59:51 Essential hypertension 95568860 I10 Newly diagnosed. Patient's blood pressure is [...] qd 10/18/17. BMP/Mg in 3wks. Chest pain 70912639 R07. 9 Atypical. Improved. Intermitte nt and nonexertio nal. May be related to increased BP. Had echo 06/14/17: normal LV systolic function, mild LVH, EF 57%, mild AI. Had exercise nuclear test 06/14/17: below average exercise capacity, no ischemia, LVEF >70%. Hypercholesterolemia 136 32885 E78.2 Needs to keep LDL less than 70, and HDL more than 40. Began atorvastat in 20 mg qHS 07/04/17. FLP 4 wks. later with LDL 68. Diabetes mellitus 848375 09 E11.59 Discussed importance of tight glycemic control to minimize cardiovasc ular disease progressio n. Follows with endo. Tachycardia 5734273 R00. 0 Improved on metoprolol . Obtained TSH 2.42, normal, 08/19/17. D-dimer normal 06/14/17. Pain in bi lateral legs 8613627594 0942015 M79.604 Obtain ABIs. [id number] Adan Dbobins MD [facility] [address] [place] [address] 12/05/2017 12:29:25 12/13/2017 09:36:55 Essential hypertension 42611326 I10 Newly diagnosed. Patient's blood pressure is [...] at 1.4. Began MgOxide daily. Chest pain 76783019 R07. 9 Atypical. Improved. Intermitte nt and non-exerti onal. May be related to increased BP. Had echo 06/14/17: normal LV systolic function, mild LVH, EF 57%, mild AI. Had exercise nuclear test 06/14/17: below average exercise capacity, no ischemia, LVEF >70%. Hypercholesterolemia 136 21092 E78.2 Needs to keep LDL less than 70, and HDL more than 40. Began Atorvastat in 20 mg qHS 07/04/17. LDL 68 08/08/17. Diabetes mellitus 633653 09 E11.59 Discussed importance of tight glycemic control to minimize cardiovasc ular disease progressio n. Follows with endo. Tachycardia 6363927 R00. 0 Improved but intermitte nt palpitatio ns on Metoprolol . Obtained TSH 2.42, normal, 08/19/17. D-dimer normal 06/14/17. Pain in bi lateral legs 5492055585 7588834 M79.604 Had Normal ankle-brac hial index done in 10/26/17. Palpitations 80116552 R0 0.2 Obtain 24 hr Holter monitor to rule out arrhythmia . Had low Mg 1.4 11/18/17.Beg an Mg Oxide 400mg qd 12/05/17. Had 08/19/17 TSH 2.420. [id number] Adan Dobbins MD [place] [facility] [place] [address] 01/16/2018 16:11:38 01/17/2018 13:04:24 Essential hypertension 89065669 I10 Newly diagnosed. Patient's blood pressure is [...] at 1.4. Began MgOxide daily 11/2017. Palpitations 30326464 R0 0.2 Less frequent but still symptomati c since began Mg Oxide. Obtain Cardea Monitor for 7 days to rule out arrhythmia . Had low Mg 1.4 11/18/17. Began Mg Oxide 400 mg qd 12/05/17. Had 08/19/17 TSH 2.420. Chest pain 59297010 R07. 9 Atypical. Improved. Intermitte nt and non-exerti onal. May be related to increased BP. Had echo 06/14/17: normal LV systolic function, mild LVH, EF 57%, mild AI. Had exercise nuclear test 06/14/17: below average exercise capacity, no ischemia, LVEF >70%. Hypercholesterolemia 136 28673 E78.2 Needs to keep LDL less than 70, and HDL more than 40. Began Atorvastat in 20 mg qHS 07/04/17. LDL 68 08/08/17. Diabetes mellitus 264753 09 E11.59 Discussed importance of tight glycemic control to minimize cardiovasc ular disease progressio n. Follows with endo. Tachycardia 5579109 R00. 0 Improved but intermitte nt palpitatio ns on Metoprolol . Obtained TSH 2.42, normal, 08/19/17. D-dimer normal 06/14/17. Pain in bi lateral legs 1983400560 9957123 M79.604 Had Normal ankle-brac hial index done in 10/26/17. [id number] Adan Dobbins MD [place] [facility] [place] [address] 01/23/2018 16:55:19 01/24/2018 13:43:48 Essential hypertension 85012518 I10 Newly diagnosed. Patient's blood pressure is [...] reflux study if LE edema recurs. Palpitations 32295966 R0 0.2 Less frequent but still symptomati c since began Mg Oxide. Obtain Cardea Monitor for 7 days to rule out arrhythmia . Had low Mg 1.4 on 11/18/17. Began Mg Oxide 400 mg qd 12/05/17. Had 08/19/17 TSH 2.420. Chest pain 35377811 R07. 9 Atypical. Improved. Intermitte nt and non-exerti onal. May be related to increased BP. Had echo 06/14/17: normal LV systolic function, mild LVH, EF 57%, mild AI. Had exercise nuclear test 06/14/17: below average exercise capacity, no ischemia, LVEF >70%. Hypercholesterolemia 136 85011 E78.2 Needs to keep LDL less than 70, and HDL more than 40. Began Atorvastat in 20 mg qHS 07/04/17. LDL 68 on 08/08/17. Diabetes mellitus 266963 09 E11.59 Discussed importance of tight glycemic control to minimize cardiovasc ular disease progressio n. Follows with endo. Tachycardia 9671223 R00. 0 Improved but intermitte nt palpitatio ns on Metoprolol . Obtained TSH 2.42, normal, 08/19/17. D-dimer normal 06/14/17. Pain in bi lateral legs 8423306663 9962461 M79.604 Had Normal ankle-brac hial index done in 10/26/17. Edema of l ower extremity 304501482 R60.0 Improved. Started on HCTZ 12.5 mg 01/20/18. Had negative Venous Doppler for DVT on 01/20/18. [id number] Adan Dobbins MD [facility] [address] [place] [address] 02/15/2018 16:48:28 02/15/2018 19:04:08 Essential hypertension 54156578 I10 Patient's blood pressure is well-contr olled [...] reflux study if LE edema recurs. Palpitations 02721975 R0 0.2 Less frequent but still symptomati [...] 1.5. Had 08/19/17 TSH 2.420. Chest pain 78799922 R07. 9 Atypical. Improved. Intermitte nt and non-exerti onal. Had echo 06/14/17: normal LV systolic function, mild LVH, EF 57%, mild AI. Had exercise nuclear test 06/14/17: below average exercise capacity, no ischemia, LVEF >70%. Hypercholesterolemia 136 13079 E78.2 Needs to keep LDL less than 70, and HDL more than 40. Began Atorvastat in 20 mg qHS 07/04/17. LDL 68 on 08/08/17. Diabetes mellitus 059852 09 E11.59 Discussed importance of tight glycemic control to minimize cardiovasc ular disease progressio n. Follows with endo. Tachycardia 9340482 R00. 0 Improved but intermitte nt palpitatio ns on Metoprolol . Obtained TSH 2.42, normal, 08/19/17. D-dimer normal 06/14/17. Pain in bi lateral legs 7064333501 0397206 M79.604 Had Normal ankle-brac hial index done in 10/26/17. Edema of l ower extremity 018363794 R60.0 Improved. Started on HCTZ 12.5 mg 01/20/18 with resolution of edema but with increased Cr, prompting cessation of hydrochlor othiazide Feb 15 2018. Had negative Venous Doppler for DVT on 01/20/18. Dizziness 085612776 R42 Obtain carotid U/S. Stopped HCTZ given increased BUN and Cr. [id number] David Hancock MD [place] [facility] [address] [place] [address] 03/15/2018 16:30:20 03/23/2018 18:34:33 Essential hypertension 32109522 I10 Patient's blood pressure is well-contr olled [...] reflux study if LE edema recurs. Palpitations 36800716 R0 0.2 Less frequent but still symptomati [...] 1.5. Had 08/19/17 TSH 2.420. Chest pain 92629973 R07. 9 Atypical. Improved. Intermitte nt and non-exerti onal. Had echo 06/14/17: normal LV systolic function, mild LVH, EF 57%, mild AI. Had exercise nuclear test 06/14/17: below average exercise capacity, no ischemia, LVEF >70%. Hypercholesterolemia 136 40332 E78.2 Needs to keep LDL less than 70, and HDL more than 40. Began Atorvastat in 20 mg qHS 07/04/17. LDL 68 on 08/08/17. Diabetes mellitus 672558 09 E11.59 Discussed importance of tight glycemic control to minimize cardiovasc ular disease progressio n. Follows with endo. Tachycardia 7751485 R00. 0 Improved but intermitte nt palpitatio ns on Metoprolol . Obtained TSH 2.42, normal, 08/19/17. D-dimer normal 06/14/17. Pain in bi lateral legs 6033694805 1366122 M79.604 Had Normal ankle-brac hial index done in 10/26/17. Edema of l ower extremity 550918012 R60.0 Improved. Started on HCTZ 12.5 mg 01/20/18 with resolution of edema but with increased Cr, prompting cessation of hydrochlor othiazide Feb 15 2018. Had negative Venous Doppler for DVT on 01/20/18. Dizziness 240748411 R42 Obtain carotid U/S. Stopped HCTZ given increased BUN [place] Cr. [id number] David [place] MD [facility] [address] [place] [address] 05/29/2018 10:46:20 06/13/2018 02:43:29 Essential hypertension 42221633 I10 Patient's blood pressure is well-contr olled [...] reflux study if LE edema recurs. Palpitations 32462024 R0 0.2 More frequent the last 1 [...] 1.5. Had 05/25/18 TSH 2.330 Chest pain 52995606 R07. 9 Atypical. Improved. Intermitte nt and non-exerti onal. Had echo 06/14/17: normal LV systolic function, mild LVH, EF 57%, mild AI. Had exercise nuclear test 06/14/17: below average exercise capacity, no ischemia, LVEF >70%. Hypercholesterolemia 136 82307 E78.2 Needs to keep LDL less than 70, and HDL more than 40. Began Atorvastat in 20 mg qHS 07/04/17. Increased Atorvastat in to 40 mg once daily 05/29/18. LDL was 131 on 05/25/18 Will start Fish Oil 1000 mg twice daily for TG 258. Diabetes mellitus 841081 09 E11.59 Discussed importance of tight glycemic control to minimize cardiovasc ular disease progressio n. Follows with endo. Tachycardia 7058558 R00. 0 Improved but intermitte nt palpitatio ns on Metoprolol 200 mg qd. Had 05/25/18 TSH 2.330. Pain in bi lateral legs 4247664267 2743728 M79.604 Had Normal ankle-brac hial index done in 10/26/17. Edema of l ower extremity [id number] R60.0 Improved. Started on HCTZ 12.5 mg 01/20/18 with resolution of edema but with increased Cr, prompting cessation of hydrochlor othiazide Feb 15 2018. Had negative Venous Doppler for DVT on 01/20/18. Dizziness 090331212 R42 Intermitte nt. Had Carotid US on 02/22/18 showing mild bilateral internal carotid artery stenosis with less than 60% diameter stenosis. Stopped HCTZ given increased BUN and Cr. Anxiety 21138416 F41.9 History of anxiety and currently going [...] agrees with the plan. All questions answered. [id number] David Hancock MD [facility] [address] [place] [address] 07/04/2018 15:00:24 07/04/2018 15:33:37 Essential hypertension 87961481 I10 Well controlled today. Is not taking her medication s as prescribed . She stopped taking her medication s 1 week ago, Amlodipine 5 mg, Lisinopril 10 mg, Metoprolol 200 mg qd and Magnesium Oxide. Palpitations 11413588 R0 0.2 less frequent. Had iMedia[employer]fm 7 day monitor 01/23/2018 which demonstrat ed [...] TSH 2.330 07/06 stopped MagOxide Chest pain 38811654 R07. 9 Atypical. Improved. Intermitte nt and non-exerti onal. Had echo 06/14/17: normal LV systolic function, mild LVH, EF 57%, mild AI. Had exercise nuclear test 06/14/17: below average exercise capacity, no ischemia, LVEF >70%. Tachycardia 4764846 R00. 0 Improved but intermitte nt palpitatio ns on Metoprolol 200 mg qd. Had 05/25/18 TSH 2.330. Hypercholesterolemia 136 08140 E78.2 Needs to keep LDL less than 70, and HDL more than 40. Began Atorvastat in 20 mg qHS 07/04/17. Increased Atorvastat in to 40 mg once daily 05/29/18. LDL was 131 on 05/25/18 Will start Fish Oil 1000 mg twice daily for TG 258. Will repeat FLP before next visit. Diabetes mellitus 462400 09 E11.59 Discussed importance of tight glycemic control to minimize cardiovasc ular disease progressio n. Follows with endo. Pain in bi lateral legs [id number] 0098219 M79.604 Had Normal ankle-brac hial index done in 10/26/17. Edema of l anjuer extremity 773780588 R60.0 Improved. Started on HCTZ 12.5 mg 01/20/18 with resolution of edema but with increased Cr, prompting cessation of hydrochlor othiazide Feb 15 2018. Had negative Venous Doppler for DVT on 01/20/18. Dizziness 466575065 R42 Intermitte nt. Had Carotid US on 02/22/18 showing mild bilateral internal carotid artery stenosis with less than 60% diameter stenosis. Stopped HCTZ given increased BUN and Cr. Anxiety 85458882 F41.9 History of anxiety and currently going [...] agrees with the plan. All questions answered. [id number] Adan Dobbins MD [facility] [address] [place] [address] 11/08/2018 15:21:24 11/08/2018 17:38:34 Essential hypertension 06492549 I10 Well-contr olled today despite stopping all of her anti-hyper tensives on her own since 06/2018. She lost 23 lbs. since January 2018 and is more active. Is not taking her medication s as prescribed . She stopped taking her medication s 11/08/18: Amlodipine 5 mg, Lisinopril 10 mg, Metoprolol 200 mg qd and Magnesium Oxide. BP diary. Palpitations 80589074 R0 0.2 Less frequent. Had Cardea 7 [...] 1.5. Had 05/25/18 TSH 2.330 Chest pain 93913074 R07. 9 Atypical. Improved. Intermitte nt and non-exerti onal. Had echo 06/14/17: normal LV systolic function, mild LVH, EF 57%, mild AI. Had exercise nuclear test 06/14/17: below average exercise capacity, no ischemia, LVEF >70%. Tachycardia 4970601 R00. 0 Improved but intermitte nt palpitatio ns on Metoprolol 200 mg qd, which she self-disco ntinued. Had 05/25/18 TSH 2.330. Hypercholesterolemia 136 21142 E78.2 Needs to keep LDL less than 70, and HDL more than 40. Began Atorvastat in 20 mg qHS 07/04/17. Increased Atorvastat in to 40 mg once daily 05/29/18. LDL was 131 on 05/25/18 She stopped atorvastat in on her own 06/2018. Obtain FLP. Diabetes mellitus 927014 09 E11.59 Discussed importance of tight glycemic control to minimize cardiovasc ular disease progressio n. Follows with endo. Pain in bi lateral legs 4941506383 2450193 M79.604 Had Normal ankle-brac hial index done in 10/26/17. Edema of l ower extremity 469343790 R60.0 Improved. Started on HCTZ 12.5 mg 01/20/18 with resolution of edema but with increased Cr, prompting cessation of hydrochlor othiazide Feb 15 2018. Had poor liquid intake at that time. Had negative Venous Doppler for DVT on 01/20/18. Dizziness 605628961 R42 Intermitte nt. Improved. Had Carotid US on 02/22/18 showing mild bilateral internal carotid artery stenosis with less than 60% diameter stenosis. Needs repeat carotid U/S 02/2019. Stopped HCTZ given increased BUN and Cr. Anxiety 22206871 F41.9 Improved. History of anxiety and currently going through major life changes. [id number] Adan Dobbins MD [facility] [address] [place] [phone] 01/13/2022 14:02:40 01/13/2022 16:32:52 Essential hypertension 49882925 I10 Well-contr olled today despite stopping all of her anti-hyper tensives on her own since 06/2018. She lost 23 lbs. since January 2018 and is more active. Is not taking her medication s as prescribed . She stopped taking her medication s 11/08/18: Amlodipine 5 mg, Lisinopril 10 mg, Metoprolol 200 mg qd and Magnesium Oxide. BP diary. Palpitations 18961267 R0 0.2 Less frequent. Had Cardea 7 [...] 1.5. Had 05/25/18 TSH 2.330 Chest pain 04979159 R07. 9 Patient presents with chest pain [...] stress test normal, consider stopping ASA. Tachycardia 7197445 R00. 0 Improved but intermitte nt palpitatio ns on Metoprolol 200 mg qd, which she self-disco ntinued. Had 9/6/18 TSH 2.330. Hypercholesterolemia 136 34139 E78.2 Needs to keep LDL less than 70, and HDL more than 40. Began Atorvastat in 20 mg qHS 07/04/17. Increased Atorvastat in to 40 mg once daily 05/29/18. LDL was 131 on 05/25/18 She stopped atorvastat in on her own 06/2018. Obtain FLP. Diabetes mellitus 394659 09 E11.59 Discussed importance of tight glycemic control to minimize cardiovasc ular disease progressio n. Follows with endo. Pain in bi lateral legs 2052588483 5634476 M79.604 Had Normal ankle-brac hial index done in 10/26/17. Edema of l ower extremity 087264854 R60.0 Intermitte nt. Started on HCTZ 12.5 mg 01/20/18 with resolution of edema but with increased Cr, prompting cessation of hydrochlor othiazide Feb 15 2018. Had poor liquid intake at that time. Had negative Venous Doppler for DVT on 01/20/18. Elevate legs.Compr ession stockings. Low Na diet. Consider HCTZ pending labs. Dizziness 948057900 R42 Intermitte nt. Improved. Had Carotid US on 02/22/18 showing mild bilateral internal carotid artery stenosis with less than 60% diameter stenosis. Needs repeat carotid U/S. Anxiety 76719704 F41.9 Improved. History of anxiety and currently going through major life changes. Aortic edita ve regurgitation 69398513 I35.1 Mild. Had 06/14/17 ECHO: Normal left ventricula r systolic function , no local well motion abnormalit ies, normal left ventricula r size , mild concentric left ventricula r hypertroph y, normal left ventricula r diastolic function, EF 57%, Mild aortic valve regurgitat ion. Obtain echo to evaluate for structural /functiona l disease. [id number] Adan Dobbins MD [facility] [address] [place] [phone] 02/03/2022 10:46:00 02/03/2022 11:59:11 Aortic valve regurgitation 05724405 I35.1 Mild. Had 06/14/17 ECHO: Normal left ventricula r systolic function , no local well motion abnormalit ies, normal left ventricula r size , mild concentric left ventricula r hypertroph y, normal left ventricula r diastolic function, EF 57%, Mild aortic valve regurgitat ion. Obtain echo to evaluate for structural /functiona l disease. Essential hypertension 48117941 I10 Well-contr olled today despite stopping all of her anti-hyper tensives on her own since 06/2018. She lost 23 lbs. since January 2018 and is more active. Is not taking her medication s as prescribed . She stopped taking her medication s 11/08/18: Amlodipine 5 mg, Lisinopril 10 mg, Metoprolol 200 mg qd and Magnesium Oxide. BP diary. Dizziness 696925183 R42 Intermitte nt. Improved. Had Carotid US on 02/22/18 showing mild bilateral internal carotid artery stenosis with less than 60% diameter stenosis. Needs repeat carotid U/S. Pain in bi lateral legs 3638461629 2891141 M79.604 Had Normal ankle-brac hial index done in 10/26/17. Tachycardia 2974233 R00. 0 Improved but intermitte nt palpitatio ns on Metoprolol 200 mg qd, which she self-disco ntinued. Had 05/25/18 TSH 2.330. Anxiety 10894383 F41.9 Improved. History of anxiety and currently going through major life changes. Diabetes mellitus 371409 09 E11.59 Discussed importance of tight glycemic control to minimize cardiovasc ular disease progressio n. Follows with endo. Edema of l ower extremity 223214702 R60.0 Intermitte nt. Minimal. Started on HCTZ 12.5 mg 01/20/18 with resolution of edema but with increased Cr, prompting cessation of hydrochlor othiazide Feb 15 2018. Had poor liquid intake at that time. Had negative Venous Doppler for DVT on 01/20/18. Elevate legs.Compr ession stockings. Low Na diet. Consider HCTZ if edema increases. History of obesity 97252 3001 Z91.89 20 lb. weight loss recommende d over the next 2 months. Hypercholesterolemia 136 05000 E78.2 Needs to keep LDL less than [...] gm bid 02/03/22. Atypical chest pain 1025 63181 R07.89 Patient presents with chest pain with [...] . The patient agrees to proceed at [facility]. Had echo 06/14/17: normal LV systolic function, mild LVH, EF 57%, mild AI. Had exercise nuclear test 06/14/17: below average exercise capacity, no ischemia, LVEF >70%. Had 01/20/22 CMP-NA 138 K 4.0 CR 1.08 GL 106 CA 8.7 MAG 1.7 LIPID-TRIG 438 CHOL 265 LDL 137 HDL 39 CBC-WBC 8.9 RBC 4.32 HGB 13.8 HCT 39.3 PLT 234 Palpitations 49372623 R0 0.2 Less frequent. Had Cardea 7 [...] mg qd 12/05/17. Had 05/25/18 TSH 2.330 [id number] Adan Dobbins MD [facility] [address] [place] [address] 03/03/2022 15:38:56 03/03/2022 18:05:44 Aortic valve regurgitation 04254057 I35.1 Mild previously . Had US, echocardio [...] Mild aortic valve regurgitat ion. Essential hypertension 46211982 I10 Well-contr olled today despite stopping all of her anti-hyper tensives on her own since 06/2018. She lost 23 lbs. since January 2018 and is more active. Is not taking her medication s as prescribed . She stopped taking her medication s 11/08/18: Amlodipine 5 mg, Lisinopril 10 mg, Metoprolol 200 mg qd and Magnesium Oxide. BP diary. Dizziness 136563409 R42 Intermitte nt. Improved. Had US, carotid artery ( 2) Antegrade flow noted in both vertebral arteries. Mild bilateral internal carotid artery stenosis with less than 50% diameter stenosis. Had Carotid US on 02/22/18 showing mild bilateral internal carotid artery stenosis with less than 60% diameter stenosis. Needs repeat carotid U/S 02/2023. Pain in bi lateral legs 5327683718 1016352 M79.604 Had Normal ankle-brac hial index done in 10/26/17. Tachycardia 2406253 R00. 0 Improved but intermitte nt palpitatio ns on Metoprolol 200 mg qd, which she self-disco ntinued. Had 05/25/18 TSH 2.330. Anxiety 40749349 F41.9 Improved. History of anxiety and currently going through major life changes. Diabetes mellitus 520848 09 E11.59 Discussed importance of tight glycemic control to minimize cardiovasc ular disease progressio n. Follows with endo. Edema of l ower extremity 422507192 R60.0 Intermitte nt. Minimal. Started on HCTZ 12.5 mg 01/20/18 with resolution of edema but with increased Cr, prompting cessation of hydrochlor othiazide Feb 15 2018. Had poor liquid intake at that time. Had negative Venous Doppler for DVT on 01/20/18. Elevate legs.Compr ession stockings. Low Na diet. Consider HCTZ if edema increases. History of obesity 38354 3001 Z91.89 20 lb. weight loss recommende d over the next 2 months. Hypercholesterolemia 136 44405 E78.2 Needs to keep LDL less than [...] FLP 1 mo. Atypical chest pain 1025 08780 R07.89 Patient presents with chest pain with [...] HGB 13.8 HCT 39.3 PLT 234 Palpitations 85884574 R0 0.2 Less frequent. Had [employer]fm 7 day monitor 01/23/2018 which demonstrat ed [...] 12/05/17. Had 05/25/18 TSH 2.330 Coronary arteriosclerosis 32769950 I25.10 Mild-moder ate CAD. Had [facility] 02/18/22: mild to moderate CAD (40% stenosis mid LCx, LAD and RCA no significan t disease, RCA non-domina nt), normal LV systolic function, normal LVEDP. Continue ASA. Needs to keep LDL less than 70, and HDL more than 40. Pre-surger y evaluation 424039601 Z01.818 There is no cardiac contraindi cation for the procedure. The planned procedure would be within acceptable risk. Patient may stop taking aspirin five (5) days prior to the procedure. [id number] Adan Dobbins MD [place] [place] [address] 05/05/2022 14:17:27 05/05/2022 15:27:04 Aortic valve regurgitation 25926023 I35.1 Mild previously . Had US, echocardio [...] Mild aortic valve regurgitat ion. Essential hypertension 83650065 I10 Well-contr olled with diet today despite [...] Oxide. BP diary. Obtain BMP, Mg. Dizziness 808502631 R42 Intermitte nt. Postural. Had US, carotid artery ( 2) Antegrade flow noted in both vertebral arteries. Mild bilateral internal carotid artery stenosis with less than 50% diameter stenosis. Had Carotid US on 02/22/18 showing mild bilateral internal carotid artery stenosis with less than 60% diameter stenosis. Needs repeat carotid U/S 02/2023. Pain in bi lateral legs 6830665324 7509786 M79.604 Had Normal ankle-brac hial index done in 10/26/17. Tachycardia 4464891 R00. 0 Improved but intermitte nt palpitatio ns on Metoprolol 200 mg qd, which she self-disco ntinued. Had 05/25/18 TSH 2.330. Anxiety 43010870 F41.9 Improved. History of anxiety and currently going through major life changes. Diabetes mellitus 712801 09 E11.59 Discussed importance of tight glycemic control to minimize cardiovasc ular disease progressio n. Follows with endo. Edema of l ower extremity 643163594 R60.0 Intermitte nt. Minimal. Started on HCTZ 12.5 mg 01/20/18 with resolution of edema but with increased Cr, prompting cessation of hydrochlor othiazide Feb 15 2018. Had poor liquid intake at that time. Had negative Venous Doppler for DVT on 01/20/18. Elevate legs.Compr ession stockings. Low Na diet. Consider HCTZ if edema increases. History of obesity 52602 3001 Z91.89 20 lb. weight loss recommende d over the next 2 months. Hypercholesterolemia 136 78242 E78.2 Needs to keep LDL less than [...] CPK 72 normal. Atypical chest pain 1025 69490 R07.89 Patient presents with chest pain with atypical features and exertional dyspnea which can be an anginal equivalent , improved. Had exercise nuclear stress test 01/26/22: positive for ischemia, with reversible defect consistent with ischemia in laura[place]ain[place] area (new compared with 06/14/17).H ad [facility] 02/18/22: mild to moderate CAD (40% [...] 13.8 HCT 39.3 PLT 234 Coronary arteriosclerosis 55016404 I25.10 Mild-moder ate CAD. Had [facility] 02/18/22: mild to moderate CAD (40% stenosis mid LCx, LAD and RCA no significan t disease, RCA non-domina nt), normal LV systolic function, normal LVEDP. Continue ASA. Needs to keep LDL less than 70, and HDL more than 40. Palpitations 63976399 R0 0.2 Resolved. Had Cardea 7 day [...] 152 CA 9.0 MAG 1.6 CK 72 [id number] Adan Dobbins MD [place] [facility] [place] [address] 10/27/2022 11:20:27 10/27/2022 12:56:22 Aortic valve regurgitation 96606764 I35.1 Mild previously . Had US, echocardio [...] Mild aortic valve regurgitat ion. Essential hypertension 15332054 I10 Well-contr olled with diet today despite [...] BP diary. Obtain BMP, Mg, drawn at [facility] 10/25/22. Dizziness 735768127 R42 Intermitte nt. Postural. Had US, carotid artery ( 2) Antegrade flow noted in both vertebral arteries. Mild bilateral internal carotid artery stenosis with less than 50% diameter stenosis. Had Carotid US on 02/22/18 showing mild bilateral internal carotid artery stenosis with less than 60% diameter stenosis. Needs repeat carotid U/S 01/2023. Pain in bi lateral legs 1983307094 8539031 M79.604 Had Normal ankle-brac hial index done in 10/26/17. Tachycardia 9293001 R00. 0 Improved but intermitte nt palpitatio ns on Metoprolol 200 mg qd, which she self-disco ntinued. Had 05/25/18 TSH 2.330. Anxiety 64231821 F41.9 Improved. History of anxiety and currently going through major life changes. Diabetes mellitus 422860 09 E11.59 Discussed importance of tight glycemic control to minimize cardiovasc ular disease progressio n. Follows with endo. Edema of l ower extremity 542987157 R60.0 Intermitte nt. Minimal. Started on HCTZ 12.5 mg 01/20/18 with resolution of edema but with increased Cr, prompting cessation of hydrochlor othiazide Feb 15 2018. Had poor liquid intake at that time. Had negative Venous Doppler for DVT on 01/20/18. Elevate legs.Compr ession stockings. Low Na diet. Consider HCTZ if edema increases. Obtain labs 10/25/21 [facility]. History of obesity 31500 3001 Z91.89 20 lb. weight loss recommende d over the next 2 months. Hypercholesterolemia 136 18829 E78.2 Needs to keep LDL less than [...] CPK 72 normal. Atypical chest pain 1025 09431 R07.89 Patient presents with chest pain with atypical features and exertional dyspnea which can be an anginal equivalent , improved. Had exercise nuclear stress test 01/26/22: positive for ischemia, with reversible defect consistent with ischemia in laura[place]ain[place] area (new compared with 06/14/17).H ad [facility] 02/18/22: mild to moderate CAD (40% [...] 13.8 HCT 39.3 PLT 234 Coronary arteriosclerosis 89659562 I25.10 Mild-moder ate CAD. Had [facility] 02/18/22: mild to moderate CAD (40% stenosis mid LCx, LAD and RCA no significan t disease, RCA non-domina nt), normal LV systolic function, normal LVEDP. Continue ASA. Needs to keep LDL less than 70, and HDL more than 40. Palpitations 08732442 R0 0.2 Resolved. Had Cardea 7 day [...] MAG 1.6 CK 72 Pre-surger y evaluation 984165473 Z01.818 There is no cardiac contraindi cation for the procedure. The planned procedure would be within acceptable risk. Patient may stop taking aspirin five (5) days prior to the procedure. [id number] Adan Dobbins MD [facility] [address] [place] [address] 01/05/2023 14:00:47 01/05/2023 14:46:55 Aortic valve regurgitation 40372760 I35.1 Mild previously . Had US, echocardio [...] regurgitat ion. Obtain echo 03/2023. Essential hypertension 52661906 I10 Well-contr olled with diet today despite [...] CR 1.12 GL 177 CA 9.0 Dizziness 454658245 R42 Intermitte nt. Postural. Had US, carotid artery ( 2) Antegrade flow noted in both vertebral arteries. Mild bilateral internal carotid artery stenosis with less than 50% diameter stenosis. Had Carotid US on 02/22/18 showing mild bilateral internal carotid artery stenosis with less than 60% diameter stenosis. Needs repeat carotid U/S 02/2023. Pain in bi lateral legs 8111840191 0966535 M79.604 Had Normal ankle-brac hial index done in 10/26/17. Tachycardia 1639874 R00. 0 Improved but intermitte nt palpitatio ns on Metoprolol 200 mg qd, which she self-disco ntinued. Had 05/25/18 TSH 2.330. Anxiety 48336159 F41.9 Improved. History of anxiety and currently going through major life changes. Diabetes mellitus 114348 09 E11.59 Discussed importance of tight glycemic control to minimize cardiovasc ular disease alen n. Follows with endo. Edema of l ower extremity 568922937 R60.0 Intermitte nt. Minimal. Started on HCTZ 12.5 mg 01/20/18 with resolution of edema but with increased Cr, prompting cessation of hydrochlor othiazide Feb 15 2018. Had poor liquid intake at that time. Had negative Venous Doppler for DVT on 01/20/18. Elevate legs.Compr ession stockings. Low Na diet. Consider HCTZ if edema increases. History of obesity 76247 3001 Z91.89 20 lb. weight loss recommende d over the next 2 months. Hypercholesterolemia 136 74047 E78.2 Needs to keep LDL less than [...] Mg, TSH, CBC. Atypical chest pain 1025 02751 R07.89 Resolved. Had exercise nuclear stress test [...] 13.8 HCT 39.3 PLT 234 Coronary arteriosclerosis 07804590 I25.10 Mild-moder ate CAD. Had [facility] 02/18/22: mild to moderate CAD (40% stenosis mid LCx, LAD and RCA no significan t disease, RCA non-domina nt), normal LV systolic function, normal LVEDP. Continue ASA. Intolerant of lisinopril with altered mental status. Needs to keep LDL less than 70, and HDL more than 40. Palpitations 77093399 R0 0.2 Resolved. Had Cardea 7 day [...] Member ID Guarantor Name 05/03/2025 1 [employer] [id number] Niles Croft [id number] 1 Niles Croft Notes Date Note Type [...] She is having R ankle surgery at [place] in [facility] with Dr. Phillips, date pending. Reports [...] related. She had fasting blood work at [facility] on 05/25/18 which was all WNL except [...] >70%. Had normal [place] on 10/21/17. Had [employer] 7 day monitor 01/23/2018 which demonstrated normal [...] She is having R ankle surgery at [place] in [facility] with Dr. Phillips, date pending. Reports [...] related. She had fasting blood work at [facility] on 05/25/18 which was all WNL except [...] correlated with normal sinus rhythm. Adan kolb [place] [facility] 02/03/2022 11:48:28 03/03/2022 text/html 03/03/22 CC: Chest pain 51 year-old woman with history of HTN, aortic valve regurgitation, obesity, diabetes mellitus, CKD, family history of CAD, former tobacco use (quit 05/2016), anxiety, depression, is seen in cardiac consultation for chest pain. She was last in the office 4 weeks ago. Had [facility] 02/18/22: mild to moderate CAD (40% stenosis mid LCx, LAD and RCA no significant disease, RCA non-dominant), normal LV systolic function, normal LVEDP. She is having R ankle surgery at [place] in [facility] with Dr. Phillips, date pending. Reports [...] related. She had fasting blood work at [facility] on 05/25/18 which was all WNL except [...] >70%. Had normal [place]HELSEA on 10/21/17. Had [employer] 7 day monitor 01/23/2018 which demonstrated normal [...] events correlated with normal sinus rhythm. Had [facility] 02/18/22: mild to moderate CAD (40% stenosis mid LCx, LAD and RCA no significant disease, RCA non-dominant), normal LV systolic function, normal LVEDP. Adan Dobbins [place], [place] - [facility] 03/03/2022 17:58:07 05/05/2022 text/html 05/05/22 CC: Chest pain 51 year-old woman with history of CAD, carotid artery stenosis, HTN, aortic valve regurgitation, obesity, diabetes mellitus, CKD, family history of CAD, former tobacco use (quit 05/2016), anxiety, depression, is seen in cardiac consultation for chest pain. She was last in the office 8 weeks ago. Had [facility] 02/18/22: mild to moderate CAD (40% stenosis mid LCx, LAD and RCA no significant disease, RCA non-dominant), normal LV systolic function, normal LVEDP. She had R ankle surgery at [place] in [facility] with Dr. Phillips 03/2022. Reports home [...] related. She had fasting blood work at [place] on 05/25/18 which was all WNL except [...] LV systolic function, normal LVEDP. Adan Dobbins [facility], [place] - [facility] 05/05/2022 15:19:25 10/27/2022 [...] R foot tendon repair, date pending. Had [facility] 02/18/22: mild to moderate CAD (40% stenosis mid LCx, LAD and RCA no significant disease, RCA non-dominant), normal LV systolic function, normal LVEDP. She had R ankle surgery at [place] in [facility] with Dr. Phillips 03/2022. Reports home [...] related. She had fasting blood work at [place] on 05/25/18 which was all WNL except [...] events correlated with normal sinus rhythm. Had [facility] 02/18/22: mild to moderate CAD (40% stenosis mid LCx, LAD and RCA no significant disease, RCA non-dominant), normal LV systolic function, normal LVEDP. Adan Dobbins [place], [place] - [facility] 10/27/2022 12:49:30 [...] had R foot tendon repair 10/28/22. Had [facility] 02/18/22: mild to moderate CAD (40% stenosis mid LCx, LAD and RCA no significant disease, RCA non-dominant), normal LV systolic function, normal LVEDP. She had R ankle surgery at [place] in [facility] with Dr. Phillips 03/2022. Reports home [...] related. She had fasting blood work at [place] on 05/25/18 which was all WNL except [...] >70%. Had normal [facility] on 10/21/17. Had [employer] 7 day monitor 01/23/2018 which demonstrated normal [...] LV systolic function, normal LVEDP. Adan kolb [place] - [facility] 01/05/2023 14:34:41 OBGyn Episode No OBEpisode recorded.
--- OUTSIDE RECORDS SUMMARY | 2025-07-29 13:06 | XMS_ITS | Clinical Summary ---
Author Organization [facility] Address [address] [place] [id number] Phone Care Team Providers Care Farm Products Shipper Name Role Phone Radha Kaminski Primary Care Provider [phone] Allergies Active Allergy Reactions Criticality Noted Date Comments Prochlorperazine Other (see comments),Shortness of breath High 11/26/2016 Lockjaw Lockjaw Medications aspirin (ST DUDLEY) 81 MG EC tablet Take 81 mg by mouth daily Active buPROPion XL (WELLBUTRIN XL) 150 MG 24 hr tablet 2 Active Cholecalciferol (Vitamin D3) 1.25 MG (75049 UT) capsule Twice a week 2 Active [...] Done Comments Influenza Vaccine (#1) [address] [place] [address] Care Teams Farm Products Shipper Relationship Specialty Start Date End Date Radha Kaminski [facility] [place] [id number] PCP - General Family Medicine 06/21/22
[2025-07-29 13:16] LABS: Hematocrit 30.8 % (35.0-49.0); Hemoglobin 10.6 g/dL (12.0-15.0); Immature Granulocyte Percent A 0.4 % (0.0-0.0); Lymphocytes Absolute Auto 1.57 K/mm3 (1.10-4.50); Mean Corpuscular HGB Conc 34.4 g/dL (32-36); Mean Corpuscular Hemoglobin 30.8 pg (27.0-31.0); Mean Corpuscular Volume 89.5 fL (78.0-102.0); Nucleated Red Blood Cells Absolute Auto 0.00 K/mm3 (0.00-0.00); Nucleated Red Blood Cells Perc 0.0 % (0-0.0); Platelet Count Result 191 K/mm3 (150-420); Red Blood Count 3.44 M/mm3 (4.20-5.40); White Blood Count 7.6 K/mm3 (4.8-10.8)
[2025-07-29 14:29] LABS: Anion Gap 7 mmol/L (4-12); Blood Urea Nitrogen 15 mg/dL (7-17); CRP 3.8 mg/dL (<1.0); Calcium 8.8 mg/dL (8.4-10.2); Carbon Dioxide 24 mmol/L (22-30); Chloride 111 mmol/L (98-107); Estimated Glomerular Filt Rate 25; Glucose 115 mg/dL (65-110); Osmolality Calculated 295 mOsm/kg (285-295); Potassium 3.8 mmol/L (3.4-5.0); Sodium 142 mmol/L (137-145)
== END 2025-07-29 12:51 | disposition home or self-care (01) ==
LOC: CHSLAB 12:53
PROVIDERS: PCP Family Medicine; Visit Provider Orthopaedic Surgery
DX: M00.9 Pyogenic arthritis, unspecified (principal)
CPT/HCPCS: 36415; 80048; 80202; 85025; 85652; 86140

== ENCOUNTER 2025-08-01 13:45 | Outpatient (CLI) | payer OTHER, MEDICAID, SELFPAY ==
--- OUTSIDE RECORDS SUMMARY | 2024-11-22 07:15 | XMS_ITS ---
Author Organization [facility] [employer] [facility] Address [address] [place] [address] [address] Care Team Providers Care Building Services Technician Name Role Phone Roland Rojas DO Primary Care Provider Unavail Julian Mcconnell Unavailable [phone] REASON FOR VISIT Pt r/s and no one documented it or removed this encounter Social History Sex Assigned At : Social History Observation Description Sex Assigned At Female Encounters Encounter Location Date Provider Diagnosis [facility] [employer] [address] [address] 11/22/2024 Julian Cummings Plan Of Treatment Next Appt Details Provider Name:Julian shaw, 08/05/2025 01:30:00 PM, [address], [facility] [address], [place], [address], Progress Notes * IZABELA PARRA GDOB:1969 (55 yo F)Acc No.[id number]:11/22/2024 Patient: Bianka IZABELA FRANCES Provider: LEOLA IQBAL :1970 A ge:54 Y S ex:Female Date:11/22/2024 Address:[address] [place], [place] [id number] Pcp:Roland Rojas DO Subjective: * Chief Complaints: * P t r/s and no one documented it or removed this encounter Billing Information: * Procedure Codes: * Electronic signature of LEOLA Rosas on 08/01/2025 at 02:19 PM VENTILATION EQUIPMENT TENDER Sign off status: Pending * Provider: JERO IQBALP Date: 0 11/22/2024 Generated for Dilip brown/Elen/Rcahel on: 1 10/01/2024 02:19 PM VENTILATION EQUIPMENT TENDER
[2025-08-01 14:06] LABS: Hematocrit 31.3 % (35.0-49.0); Hemoglobin 10.7 g/dL (12.0-15.0); Mean Corpuscular HGB Conc 34.2 g/dL (32-36); Mean Corpuscular Hemoglobin 30.7 pg (27.0-31.0); Mean Corpuscular Volume 89.9 fL (78.0-102.0); Platelet Count Result 223 K/mm3 (150-420); Red Blood Count 3.48 M/mm3 (4.20-5.40); White Blood Count 6.5 K/mm3 (4.8-10.8)
[2025-08-01 14:18] LABS: Total Protein Urine Random 12 mg/dL; Ur Ttl Prot Creatinine Ratio 0.07 mg/mg (0-0.20)
--- OUTSIDE RECORDS SUMMARY | 2025-08-01 14:18 | XMS_ITS | Clinical Summary ---
Author Organization [facility] [address] Address [address] [place] [address] Care Team Providers Care Sand Car Worker Name Role Phone Roland Rojas DO Primary [...] region 05/17/2023 Coronary artery disease invo lving [place] coronary artery of [place] heart without angina pectoris 04/19/2023 Essential hypertension [...] (01/24/2024): Added automatically from request for surgery [id number] Nonspecific abnormal results of function study o [...] Description 06/14/2025 2:30 PM CDT Office Visit [facility] Cardiology at [address] [place] [address] Rhett Ramírez MD Coronary artery disease involving [place] coronary artery of [place] heart without angina pectoris (Primary Dx); Hyperlipidemia [...] on file 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 Department [place] [address] from Last 3 Months or Most Recently Relevant to Health Maintenance [place] [address] [place] [address] OPEN ACCESS [employer] OPEN ACCESS [facility] CIGNA OPEN ACCESS [employer] OPEN ACCESS Care Teams Sand Car Worker Relationship Specialty Start Date End Date Roland Rojas DO [address] [place] [address] PCP - General Family Medicine 01/24/24
--- OUTSIDE RECORDS SUMMARY | 2025-08-01 14:18 | XMS_ITS | Clinical Summary ---
Author Organization [facility] Address [address] [facility] [place] [address] Care Team Providers Care Sticker On Name Role Phone Radha Kaminski MYRON-COMMUNITY HEALTH DIRECTOR Primary Care Provider [phone] Harmony Mcrae MD Unavailable Source Comments [facility],non-owned Affiliates and Associated Physician Practices is amultiple site organization consisting of ambulatory clinics and hospital sitesin [place], [place], [place] and [place]. This disclosure is being madepursuant to the Care Everywhere program and may not contain all information available regarding this patient. Last updated 18.[facility] Allergies Active Allergy Reactions [...] fluticasone propionate (FLONASE) 50 MCG/ACT nasal spray Fluker 2 (two) sprays into each nostril once daily Active blood glucose (Mijn AutoCoachTOUCH ULTRA) test strip USE TO TEST THREE TIMES A DAY 1 Active estradiol (ESTRACE) 2 MG tablet Take 1 (one) tablet by mouth every 24 hours Active Multiple Vitamins-Scalloper als (MULTI VITAMIN/MINERA LS) TABS Take 1 (one) tablet by mouth once daily Active [place]-3 Fatty Acids (FISH OIL) 1000 MG capsule Take 1 (one) capsule by mouth once daily Active Cholecalcifero l 1.25 MG (53376 UT) Take 1 capsule by mouth every [...] naloxone HCl (Narcan) 4 MG/0.1ML nasal spray Fluker 1 (one) spray into the nose Active [...] day by topical route. 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 Gender Identity Not on file Sexual Orientation Not on file Last Filed Vital Signs Vital Sign Reading Time Taken Comments Blood Pressure 122/68 10/06/2023 2:03 PM RESTAURANT COOK Pulse 79 10/06/2023 2:03 PM RESTAURANT COOK Temperature 36.6 C (97.9 F) 01/07/2022 2:03 PM CDT Respiratory Rate 16 08/02/2023 2:35 PM RESTAURANT COOK Oxygen Saturation 97% 08/02/2023 2:35 PM RESTAURANT COOK Inhaled Oxygen Concentration - - Weight 93.9 kg (207 lb) 10/06/2023 2:03 PM RESTAURANT COOK Height 170.2 cm (5' 7) 10/06/2023 2:03 PM RESTAURANT COOK Body Mass Index 32.42 10/06/2023 2:03 PM RESTAURANT COOK Plan of Treatment Health Maintenance Due Date [...] COMPREHENSIVE METABOLIC PANEL Routine 08/02/2023 3:29 PM RESTAURANT COOK Arthralgia, unspecified joint HEPATITIS SCREEN ACUTE ([facility]) Routine 08/02/2023 3:28 PM RESTAURANT COOK Arthralgia, unspecified joint from Last 3 Months or Most Recently Relevant to Health Maintenance Results * (ABNORMAL) COMPREHENSIVE METABOLIC PANEL (08/02/2023 3:29 PM RESTAURANT COOK) Glucose 95 70 - 99 mg/dL [facility] [...] BLOOD SPECIMEN / Unknown 08/02/2023 3:29 PM RESTAURANT COOK 08/02/2023 Narrative Resulting Agency Comment [facility] [address] [facility] [id number] Harmony Mcrae MD LAB - CHEMISTRY ORDERABLES Final Result [facility] INSURANCE BILL [address] [place] [address] * HEPATITIS SCREEN ACUTE ([facility]) (08/02/2023 3:28 PM RESTAURANT COOK) Hepatitis A Virus Antibody IgM Negative Negative [facility] INSURANCE BILL Hepatitis B Virus Surface Antigen Negative Negative [facility] INSURANCE BILL Hepatitis B Core Virus Antibody IgM Negative Negative [facility] INSURANCE BILL Hepatitis C Antibody Non Reactive Non Reactive [facility] INSURANCE BILL Blood BLOOD SPECIMEN / Unknown 08/02/2023 3:28 PM RESTAURANT COOK 08/02/2023 Narrative Resulting Agency Comment Lab Testing performed at: [address] [id number] Harmony Mcrae MD LAB - CHEMISTRY ORDERABLES Final Result [facility] INSURANCE BILL [address] [place] [address] from Last 3 Months or Most Recently Relevant to Health Maintenance Insurance Care Teams Sticker On Relationship Specialty Start Date End Date Yamilex RadhaMYRON-SCOTT [address] [facility] [address] [place] [phone] PCP - General Nurse Practitioner Family 12/03/21 [place] [id number] [place] [address] [place] [phone] Rheumatology 12/03/21
--- OUTSIDE RECORDS SUMMARY | 2025-08-01 14:18 | XMS_ITS | Encounter Summary ---
Author Organization [facility] Address [address] [place] [address] Care Team Providers Care Plant Senior Manager Name Role Phone Radha Kaminski MYRON-UNIVERSITY ADMINISTRATOR Primary Care Provider [phone] Harmony Mcrae MD Unavailable Encounter Details Date Type Department Care Team (Late st Contact Info) Description 06/20/2023 Lab Requisition [facility] - DermPath Lab [address] [facility] [place] [address] Andrzej Aguilar MD [address] [place] [address] Social History Tobacco Use Types Packs/Day Years Used Date Smoking Tobacco: Never Smokeless Tobacco: Never Alcohol Use Standard Drinks/Week Comments Never 0 (1 standard drink = 0.6 oz pur e alcohol) Comments Unknown Sex and Gender Information Value Date Recorded Sex Assigned at Not on file 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 Gender Identity Not on file Sexual Orientation Not on file documented as of this encounter Plan of Treatment Not on file documented as of this encounter Procedures Procedure Name Priority Date/Time Associated Diagnosis Comments DERMATOPATHOLOGY Routine 06/20/2023 12:0 0 AM CDT documented in this encounter Results * DERMATOPATHOLOGY (06/20/2023 12:00 AM CDT) Case Report Dermatopathology Report Case: [id number] Authorizing Provider: Andrzej Aguilar MD Collected: 06/20/2023 12:00 AM Ordering Location: [facility] DermPath Lab Received: 06/21/2023 06:10 AM [...] characteristic determined by the Dermatopathology Laboratory at [facility], directed by Dr. Jean-Pierre Miller. These tests need not be, and therefore are not, approved by the [place] Food and Drug Administration. The tests are used for clinical purposes. Billing Codes Specimen Charges Stain Charges 01386 1 07714 1 4:35 PM CDT DERMATOPATHOLOGY LABORATORY Embedded Images 4:35 PM CDT DERMATOPATHOLOGY LABORATORY Pathology/Cytolog y TISSUE SPECIMEN FROM SKIN / Unknown 06/20/2023 06/21/2023 6:10 AM CDT us Andrzej Aguilar MD LAB - PATHOLOGY/CYTOLOGY ORDERAB LES Final Result DERMATOPATHOLOGY LABORATORY [facility] - Department of Dermatology [facility] Medicine [address] [facility] [phone] documented in this encounter Visit Diagnoses Not on filedocumented in this encounter Care Teams Plant Senior Manager Relationship Specialty Start Date End Date Radha Kaminski APRN-UNIVERSITY ADMINISTRATOR [address] [facility] [address] [place] [phone] PCP - General Nurse Practitioner Family 12/03/21 [place] [id number] [place] [address] [place] [phone] Rheumatology 12/03/21 documented as of this encounter
--- OUTSIDE RECORDS SUMMARY | 2025-08-01 14:19 | XMS_ITS | Data Portability ---
Author Organization [facility] OFFICE Address [address] [place] [address] Assessment Encounter Date Assessment Date Assessment LastModified [...] current medications, and medical follow-up as noted. [email or web address] Not available 02/03/2022 11:19:05 03/03/2022 03/03/2022 Discussed with patient findings, diagnosis, and prognosis. Discussed evaluation and treatment options including risks and benefits with patient, and patient expressed understanding. The following interventions were recommended: heart healthy low-fat, low-sodium diet, continue regular exercise,maintain appropriate weight, continue current medications, and medical follow-up as noted. [email or web address] Not available 03/03/2022 17:54:51 05/05/2022 05/05/2022 Discussed with patient findings, diagnosis, and prognosis. Discussed evaluation and treatment options including risks and benefits with patient, and patient expressed understanding. The following interventions were recommended: heart healthy low-fat, low-sodium diet, continue regular exercise,maintain appropriate weight, continue current medications, and medical follow-up as noted. [email or web address] Not available 05/05/2022 15:03:06 10/27/2022 10/27/2022 Discussed [...] current medications, and medical follow-up as noted. [email or web address] Not available 01/05/2023 14:29:08 Plan of Treatment Reminders Order Date Submit Date Provider Last Modified By Organization Details Last Modified Time Details Appointments None recorded. Lab None recorded. Referral None recorded. Procedures None recorded. Surgeries None recorded. Imaging None recorded. Medication Orders rosuvastati n 20 mg tablet 2021 [facility], [address] [place] [address], [address], 17:57:13 magnesium oxide 400 mg (241.3 mg magnesium) tablet 2021 022 [email or web address] [facility], [address] [place] [address], [address], 3 11:14:53 atorvastati n 80 mg tablet 2021 022 [email or web address] [facility], [address] [place] [address], [address], 17:40:55 icosapent ethyl 1 gram capsule 2021 022 [facility], [address] [place] [address], [address], 11:47:50 Patient TargetsNo targets recorded. Patient Instructions Encounter Date Encounter Id Patient Instructions Last Modified By Organization Details Last Modified Time 02/03/2022 [id number] dizziness: care instructions [email or web address] Not available 02/03/2022 11:47:45 leg and ankle edema: care instructions Not available 02/03/2022 11:47:46 high blood pressure: care instructions [email or web address] Not available 02/03/2022 11:47:45 learning about high blood pressure [email or web address] Not available 02/03/2022 11:47:46 aortic valve regurgitation: care instructions [email or web address] Not available 02/03/2022 11:47:45 03/03/2022 [id number] leg and ankle edema: care instructions [email or web address] Not available 03/03/2022 17:57:11 dizziness: care instructions [email or web address] Not available 03/03/2022 17:57:11 high blood pressure: care instructions [email or web address] Not available 03/03/2022 17:57:11 learning about high blood pressure [email or web address] Not available 03/03/2022 17:57:11 aortic valve regurgitation: care instructions [email or web address] Not available 03/03/2022 17:57:11 05/05/2022 [id number] leg and ankle edema: care instructions [email or web address] Not available 05/05/2022 15:19:08 dizziness: care instructions [email or web address] Not available 05/05/2022 15:19:08 high blood pressure: care instructions [email or web address] Not available 05/05/2022 15:19:08 learning about high blood pressure [email or web address] Not available 05/05/2022 15:19:08 aortic valve regurgitation: care instructions [email or web address] Not available 05/05/2022 15:19:08 10/27/2022 [id number] leg and ankle edema: care instructions [email or web address] Not available 10/27/2022 12:49:16 dizziness: care instructions [email or web address] Not available 10/27/2022 12:49:16 high blood pressure: care instructions [email or web address] Not available 10/27/2022 12:49:16 learning about high blood pressure [email or web address] Not available 10/27/2022 12:49:16 aortic valve regurgitation: care instructions [email or web address] Not available 10/27/2022 12:49:16 01/05/2023 [id number] leg and ankle edema: care instructions [email or web address] Not available 01/05/2023 14:34:19 dizziness: care instructions [email or web address] Not available 01/05/2023 14:34:18 high blood pressure: care instructions [email or web address] Not available 01/05/2023 14:34:19 learning about high blood pressure [email or web address] Not available 01/05/2023 14:34:18 aortic valve regurgitation: care instructions [email or web address] Not available 01/05/2023 14:34:18 Reason for Referral [...] observ ation record ed. [facility] [address] [place] [address] [address], [place], [address], 02/23/2022 09:20:36 02/19/20 22 02/10/2022 US, echoc [...] 234. 02/18/22:PT 12.8,INR 1.0,aPTT 24. Alyssa kolb [facility] 07/07/2022 18:09:35 Covid-19 Counseling* : 02/17/22: Not detected Alyssa oklb [place] - [facility] 07/07/2022 18:26:45 Problems Name Problem SNOMED Code Status Onset Date Resolution Date Notes Provider Name and Address Organization Details Recorded Time Anxiety 60768127 Active 2016 Maty kolb [place] - [facility] 7 16:38:50 Depressive disorder 16527190 Active 2016 Maty kolb [facility] 7 16:38:57 Diabetes mellitus 89600251 Active 2016 Maty kolb [facility] 7 16:39:04 Essential hypertensio n 91729988 Active 2016 Adan kolb [facility] 7 17:47:48 History of obesity 126865416 Active 2016 Elissa kolb [facility] 7 14:54:52 Atypical chest pain 716786017 Active 2016 Elissa kolb [place] - [facility] 7 14:55:31 Dyslipidemi a 963396477 Active 2016 Elissa kolb [facility] 7 14:55:41 Hypercholes terolemia 24527897 Active 2016 Elissa kolb [place] - [facility] 7 14:56:07 Tachycardia 9384726 Active 2016 Adan kolb [facility] 7 13:42:11 Pain in bilateral legs 8209505748929 9108 Active 2017 Adan Dobbins [facility] 8 14:26:05 Dizziness 890424602 Active 2017 Adan Dobbins [facility] 8 18:15:46 Edema of lower extremity 040366046 Active 2018 Alyssa Fernandez [facility] 9 12:16:31 Aortic valve regurgitati on 30706030 Active 2021 Adan Dobbins [facility] 2 16:09:41 Coronary arterioscle rosis 53005493 Active 2021 Adan Dobbins [facility] 2 17:36:49 Pre-surgery evaluation Active 2021 Adan Dobbins [facility] 2 17:51:16 Problem Notes None recorded. Procedures Surgical History Date Name Laterality Status Provider Name and Address Organization Details Recorded Time Hysterectomy completed [facility] 06/16/2017 16:39:23 Back Surgery completed [facility] 06/16/2017 16:39:34 Knee arthroscopy/surge ry completed [facility] 06/16/2017 16:39:53 Appendectomy completed [facility] 06/16/2017 16:40:10 Imaging Results None recorded. Procedure Notes None recorded. Medical Equipment None Reported. Allergies Allergen ID Allergen Name Allergen Category Reaction Reaction Severity Criticality Documentation Date Start Date Code Code System Note Provider Name and Address Organization Details Recorded Time 17404 lisinopri l medicatio n confusion Not available unabletoasse 01/05/2023 65974 RxNorm Adan Dobbins [facility] 3 14:28:45 5287 prochlorp erazine medicatio n Not available Not available Not available 07/03/2017 8704 RxNorm Elissa Mcnair [facility] 7 14:54:13 Medications Name Sig Start [...] e 50 mcg/actua tion nasal spray,[employer] pension [place] 1 spray twice a day by intranas [...] Updated DateTime 3 170.18 cm 32 kg/m2 78488.8 4 g 74 /min 16 /min 96 % 96 % 122/82 mm[Hg] Ministerio PHILLIPS - [facility] 3 11:48:12 Date Recorded Body height Body mass index (BMI) Body weight Heart rate Respiratory rate Oxygen saturation Oxygen saturation in Arterial blood by Pulse oximetry Systolic And Diastolic Provider Name and Address Organization Details Last Updated DateTime 3 170.18 cm 29.6 kg/m2 30599.9 6 g 91 /min 16 /min 97 % 97 % 124/82 mm[Hg] Ministerio Arrieta [facility] 3 14:08:15 Date Recorded Body height Body mass index (BMI) Body weight Oxygen saturation Oxygen saturation in Arterial blood by Pulse oximetry Systolic And Diastolic Provider Name and Address Organization Details Last Updated DateTime 2 170.18 cm 34.9 kg/m2 878603. 1 g 99 % 99 % 122/78 mm[Hg] Ministerio Arrieta [facility] 2 11:02:47 Date Recorded Heart rate Provider Name an d Address Organization Details Last Updated DateTime 02/03/2022 81 /min Adan Dobbins [facility] 02/03/2022 11:45:58 Date Recorded Body height Body mass index (BMI) Body weight Heart rate Oxygen saturation Oxygen saturation in Arterial blood by Pulse oximetry Systolic And Diastolic Provider Name and Address Organization Details Last Updated DateTime 2 170.18 cm 36 kg/m2 390499. 25 g 100 /min 94 % 94 % 122/76 mm[Hg] Ministerio Arrieta [facility] 2 15:45:20 Date Recorded Body height Body mass index (BMI) Body weight Heart rate Respiratory rate Oxygen saturation Oxygen saturation in Arterial blood by Pulse oximetry Systolic And Diastolic Provider Name and Address Organization Details Last Updated DateTime 2 170.18 cm 36.8 kg/m2 000078. 21 g 89 /min 16 /min 95 % 95 % 120/72 mm[Hg] Ministerio Arrieta [facility] 2 14:26:37 Social History Question Answer Notes LastModified by Organizat ion Details LastModified Time Tobacco Smoking Status Former Smoker Not Available [facility] 07/22/2020 03:30:40 What Type Of Diet Are You Following? REGULAR [id number] Information not available 07/22/2020 What Was The Date Of Your Most Recent Tobacco Screening? 11/08/2018 [id number] Information not available 07/22/2020 Sex: Unknown Functional Status Question Answer Note LastModified by Organization D etails LastModified Time What is your level of alcohol consumption? None [id number] Information not available 07/22/2020 Mental Status None [...] available 06/16 16:46:07 Mother Myocardial infarction 46 [email or web address] Not available 06/16 17:50:10 Medical History Condition Response Diabetes Y Hyperlipidemia Y Hypertension Y Depression Y Gynecological HistoryNo gynecological history recorded. Obstetrics History GPAL:G 0 P 0 0 0 0 Past Encounters Encounter ID Performer Location Encounter Start Date Encounter Closed Date Diagnosis/Indication Diagnosis SNOMED-CT Code Diagnosis ICD10 Code Diagnosis IMO Codes Diagnosis Note [id number] [facility] [address] [place] [address] [place], [place] [address] [address] 06/16/2017 16:32:06 06/17/2017 13:04:31 Chest pain 80982730 R07.9 Atypical. Stable. May be related to increased BP. Had echo 06/14/17: normal LV systolic function, mild LVH, EF 57%, mild AI. Had exercise nuclear test 06/14/17: below average exercise capacity, no ischemia, LVEF >70%. Diabetes mellitus 322393 09 E11.59 Discussed importance of tight glycemic control to minimize cardiovasc ular disease progressio n. Essential hypertension 41206710 I10 Newly diagnosed. Patient's blood pressure is [...] Began metoprolol succinate 50 mg qd 06/16/17. [id number] Adan Dobbins MD [facility] [address] [place] [address] 07/04/2017 12:07:40 07/05/2017 09:37:07 Essential hypertension 09140920 I10 Newly diagnosed. Patient's blood pressure is [...] control with elevated resting HR. Chest pain 84451292 R07. 9 Atypical. Improved. May be related to increased BP. Had echo 06/14/17: normal LV systolic function, mild LVH, EF 57%, mild AI. Had exercise nuclear test 06/14/17: below average exercise capacity, no ischemia, LVEF >70%. Diabetes mellitus 962738 09 E11.59 Discussed importance of tight glycemic control to minimize cardiovasc ular disease progressio n. Hypercholesterolemia 136 83833 E78.2 Needs to keep LDL less than 70, and HDL more than 40. Began atorvastat in 20 mg qHS 07/04/17. FLP 4 wks. Tachycardia 5214578 R00. 0 Follow on metoprolol . Obtain TSH. D-dimer normal 06/14/17. [id number] Adan Dobbins MD [facility] [place] [address] 08/15/2017 11:58:15 08/16/2017 10:27:57 Essential hypertension 32615657 I10 Newly diagnosed. Pt reports elevated BP [...] amlodipine 5 mg qd 08/15/17. Chest pain 19024215 R07. 9 Atypical. Intermitte nt and nonexertio nal. May be related to increased BP. Had echo 06/14/17: normal LV systolic function, mild LVH, EF 57%, mild AI. Had exercise nuclear test 06/14/17: below average exercise capacity, no ischemia, LVEF >70%. Hypercholesterolemia 136 10744 E78.2 Needs to keep LDL less than 70, and HDL more than 40. Began atorvastat in 20 mg qHS 07/04/17. FLP 4 wks. later with LDL 68. Diabetes mellitus 411522 E11.59 Discussed importance of tight glycemic control to minimize cardiovasc ular disease progressio n. Tachycardia 2669272 R00. 0 Improved on metoprolol . Obtain TSH. D-dimer normal 06/14/17. [id number] Adan Dobbins MD [facility] OFF[facility] [address] [place] [address] 09/07/2017 14:31:18 09/08/2017 12:52:38 Essential hypertension 14864273 I10 Newly diagnosed. Patient's blood pressure is [...] amlodipine 10 mg qd 09/07/17. Chest pain 72813575 R07. 9 Atypical. Improved. Intermitte nt and nonexertio nal. May be related to increased BP. Had echo 06/14/17: normal LV systolic function, mild LVH, EF 57%, mild AI. Had exercise nuclear test 06/14/17: below average exercise capacity, no ischemia, LVEF >70%. Hypercholesterolemia 136 58685 E78.2 Needs to keep LDL less than 70, and HDL more than 40. Began atorvastat in 20 mg qHS 07/04/17. FLP 4 wks. later with LDL 68. Diabetes mellitus 591513 E11.59 Discussed importance of tight glycemic control to minimize cardiovasc ular disease progressio n. Follows with endo. Tachycardia 0343801 R00. 0 Improved on metoprolol . Obtained TSH 2.42, normal, 08/19/17. D-dimer normal 06/14/17. [id number] Adan Dobbins MD [facility] Office [address] [facility] [address] [place] [address] 10/18/2017 12:51:02 10/18/2017 14:59:51 Essential hypertension 21568643 I10 Newly diagnosed. Patient's blood pressure is [...] qd 10/18/17. BMP/Mg in 3wks. Chest pain 56740719 R07. 9 Atypical. Improved. Intermitte nt and nonexertio nal. May be related to increased BP. Had echo 06/14/17: normal LV systolic function, mild LVH, EF 57%, mild AI. Had exercise nuclear test 06/14/17: below average exercise capacity, no ischemia, LVEF >70%. Hypercholesterolemia 136 09563 E78.2 Needs to keep LDL less than 70, and HDL more than 40. Began atorvastat in 20 mg qHS 07/04/17. FLP 4 wks. later with LDL 68. Diabetes mellitus 312204 09 E11.59 Discussed importance of tight glycemic control to minimize cardiovasc ular disease progressio n. Follows with endo. Tachycardia 2553216 R00. 0 Improved on metoprolol . Obtained TSH 2.42, normal, 08/19/17. D-dimer normal 06/14/17. Pain in bi lateral legs 3191549256 1453869 M79.604 Obtain ABIs. [id number] Adan Dobbins MD [facility] [address] [place] [address] 12/05/2017 12:29:25 12/13/2017 09:36:55 Essential hypertension 72722701 I10 Newly diagnosed. Patient's blood pressure is [...] at 1.4. Began MgOxide daily. Chest pain 80078690 R07. 9 Atypical. Improved. Intermitte nt and non-exerti onal. May be related to increased BP. Had echo 06/14/17: normal LV systolic function, mild LVH, EF 57%, mild AI. Had exercise nuclear test 06/14/17: below average exercise capacity, no ischemia, LVEF >70%. Hypercholesterolemia 136 55289 E78.2 Needs to keep LDL less than 70, and HDL more than 40. Began Atorvastat in 20 mg qHS 07/04/17. LDL 68 08/08/17. Diabetes mellitus 961218 09 E11.59 Discussed importance of tight glycemic control to minimize cardiovasc ular disease progressio n. Follows with endo. Tachycardia 4169532 R00. 0 Improved but intermitte nt palpitatio ns on Metoprolol . Obtained TSH 2.42, normal, 08/19/17. D-dimer normal 06/14/17. Pain in bi lateral legs 4669188432 0185799 M79.604 Had Normal ankle-brac hial index done in 10/26/17. Palpitations 68268190 R0 0.2 Obtain 24 hr Holter monitor to rule out arrhythmia . Had low Mg 1.4 11/18/17.Beg an Mg Oxide 400mg qd 12/05/17. Had 08/19/17 TSH 2.420. [id number] Adan Dobbins MD [facility] [place] [address] 01/16/2018 16:11:38 01/17/2018 13:04:24 Essential hypertension 33577297 I10 Newly diagnosed. Patient's blood pressure is [...] at 1.4. Began MgOxide daily 11/2017. Palpitations 72087263 R0 0.2 Less frequent but still symptomati c since began Mg Oxide. Obtain Cardea Monitor for 7 days to rule out arrhythmia . Had low Mg 1.4 11/18/17. Began Mg Oxide 400 mg qd 12/05/17. Had 08/19/17 TSH 2.420. Chest pain 28722237 R07. 9 Atypical. Improved. Intermitte nt and non-exerti onal. May be related to increased BP. Had echo 06/14/17: normal LV systolic function, mild LVH, EF 57%, mild AI. Had exercise nuclear test 06/14/17: below average exercise capacity, no ischemia, LVEF >70%. Hypercholesterolemia 136 55649 E78.2 Needs to keep LDL less than 70, and HDL more than 40. Began Atorvastat in 20 mg qHS 07/04/17. LDL 68 08/08/17. Diabetes mellitus 412292 09 E11.59 Discussed importance of tight glycemic control to minimize cardiovasc ular disease progressio n. Follows with endo. Tachycardia 5923378 R00. 0 Improved but intermitte nt palpitatio ns on Metoprolol . Obtained TSH 2.42, normal, 08/19/17. D-dimer normal 06/14/17. Pain in bi lateral legs 9640063285 7500870 M79.604 Had Normal ankle-brac hial index done in 10/26/17. [id number] Adan Dobbins MD [facility] [place] [address] 01/23/2018 16:55:19 01/24/2018 13:43:48 Essential hypertension 88980342 I10 Newly diagnosed. Patient's blood pressure is [...] reflux study if LE edema recurs. Palpitations 11053803 R0 0.2 Less frequent but still symptomati c since began Mg Oxide. Obtain Cardea Monitor for 7 days to rule out arrhythmia . Had low Mg 1.4 on 11/18/17. Began Mg Oxide 400 mg qd 12/05/17. Had 08/19/17 TSH 2.420. Chest pain 83719483 R07. 9 Atypical. Improved. Intermitte nt and non-exerti onal. May be related to increased BP. Had echo 06/14/17: normal LV systolic function, mild LVH, EF 57%, mild AI. Had exercise nuclear test 06/14/17: below average exercise capacity, no ischemia, LVEF >70%. Hypercholesterolemia 136 67935 E78.2 Needs to keep LDL less than 70, and HDL more than 40. Began Atorvastat in 20 mg qHS 07/04/17. LDL 68 on 08/08/17. Diabetes mellitus 928656 09 E11.59 Discussed importance of tight glycemic control to minimize cardiovasc ular disease progressio n. Follows with endo. Tachycardia 6200959 R00. 0 Improved but intermitte nt palpitatio ns on Metoprolol . Obtained TSH 2.42, normal, 08/19/17. D-dimer normal 06/14/17. Pain in bi lateral legs 5803778289 5428525 M79.604 Had Normal ankle-brac hial index done in 10/26/17. Edema of l ower extremity 400157208 R60.0 Improved. Started on HCTZ 12.5 mg 01/20/18. Had negative Venous Doppler for DVT on 01/20/18. [id number] Adan Dobbins MD [facility] [address] [place] [address] 02/15/2018 16:48:28 02/15/2018 19:04:08 Essential hypertension 97122881 I10 Patient's blood pressure is well-contr olled [...] reflux study if LE edema recurs. Palpitations 40061682 R0 0.2 Less frequent but still symptomati [...] 1.5. Had 08/19/17 TSH 2.420. Chest pain 82290465 R07. 9 Atypical. Improved. Intermitte nt and non-exerti onal. Had echo 06/14/17: normal LV systolic function, mild LVH, EF 57%, mild AI. Had exercise nuclear test 06/14/17: below average exercise capacity, no ischemia, LVEF >70%. Hypercholesterolemia 136 59558 E78.2 Needs to keep LDL less than 70, and HDL more than 40. Began Atorvastat in 20 mg qHS 07/04/17. LDL 68 on 08/08/17. Diabetes mellitus 764802 09 E11.59 Discussed importance of tight glycemic control to minimize cardiovasc ular disease progressio n. Follows with endo. Tachycardia 1087364 R00. 0 Improved but intermitte nt palpitatio ns on Metoprolol . Obtained TSH 2.42, normal, 08/19/17. D-dimer normal 06/14/17. Pain in bi lateral legs 4591926086 0338028 M79.604 Had Normal ankle-brac hial index done in 10/26/17. Edema of l ower extremity 853471309 R60.0 Improved. Started on HCTZ 12.5 mg 01/20/18 with resolution of edema but with increased Cr, prompting cessation of hydrochlor othiazide Feb 15 2018. Had negative Venous Doppler for DVT on 01/20/18. Dizziness 318778147 R42 Obtain carotid U/S. Stopped HCTZ given increased BUN and Cr. [id number] David Hancock MD [facility] [address] [place] [address] 03/15/2018 16:30:20 03/23/2018 18:34:33 Essential hypertension 97833594 I10 Patient's blood pressure is well-contr olled [...] reflux study if LE edema recurs. Palpitations 08728167 R0 0.2 Less frequent but still symptomati [...] 1.5. Had 08/19/17 TSH 2.420. Chest pain 28851537 R07. 9 Atypical. Improved. Intermitte nt and non-exerti onal. Had echo 06/14/17: normal LV systolic function, mild LVH, EF 57%, mild AI. Had exercise nuclear test 06/14/17: below average exercise capacity, no ischemia, LVEF >70%. Hypercholesterolemia 136 62056 E78.2 Needs to keep LDL less than 70, and HDL more than 40. Began Atorvastat in 20 mg qHS 07/04/17. LDL 68 on 08/08/17. Diabetes mellitus 811982 09 E11.59 Discussed importance of tight glycemic control to minimize cardiovasc ular disease progressio n. Follows with endo. Tachycardia 2998691 R00. 0 Improved but intermitte nt palpitatio ns on Metoprolol . Obtained TSH 2.42, normal, 08/19/17. D-dimer normal 06/14/17. Pain in bi lateral legs 1326443467 7884284 M79.604 Had Normal ankle-brac hial index done in 10/26/17. Edema of l ower extremity 654579060 R60.0 Improved. Started on HCTZ 12.5 mg 01/20/18 with resolution of edema but with increased Cr, prompting cessation of hydrochlor othiazide Feb 15 2018. Had negative Venous Doppler for DVT on 01/20/18. Dizziness 374102467 R42 Obtain carotid U/S. Stopped HCTZ given increased BUN and Cr. [id number] David Hancock MD [facility] [address] [place] [address] 05/29/2018 10:46:20 06/13/2018 02:43:29 Essential hypertension 97343640 I10 Patient's blood pressure is well-contr olled [...] reflux study if LE edema recurs. Palpitations 11448120 R0 0.2 More frequent the last 1 [...] 1.5. Had 05/25/18 TSH 2.330 Chest pain 18592957 R07. 9 Atypical. Improved. Intermitte nt and non-exerti onal. Had echo 06/14/17: normal LV systolic function, mild LVH, EF 57%, mild AI. Had exercise nuclear test 06/14/17: below average exercise capacity, no ischemia, LVEF >70%. Hypercholesterolemia 136 30136 E78.2 Needs to keep LDL less than 70, and HDL more than 40. Began Atorvastat in 20 mg qHS 07/04/17. Increased Atorvastat in to 40 mg once daily 05/29/18. LDL was 131 on 05/25/18 Will start Fish Oil 1000 mg twice daily for TG 258. Diabetes mellitus 741178 09 E11.59 Discussed importance of tight glycemic control to minimize cardiovasc ular disease progressio n. Follows with endo. Tachycardia 3421529 R00. 0 Improved but intermitte nt palpitatio ns on Metoprolol 200 mg qd. Had 05/25/18 TSH 2.330. Pain in bi lateral legs 5320675327 4222045 M79.604 Had Normal ankle-brac hial index done in 10/26/17. Edema of l ower extremity 801216174 R60.0 Improved. Started on HCTZ 12.5 mg 01/20/18 with resolution of edema but with increased Cr, prompting cessation of hydrochlor othiazide Feb 15 2018. Had negative Venous Doppler for DVT on 01/20/18. Dizziness 990083433 R42 Intermitte nt. Had Carotid US on 02/22/18 showing mild bilateral internal carotid artery stenosis with less than 60% diameter stenosis. Stopped HCTZ given increased BUN and Cr. Anxiety 89102295 F41.9 History of anxiety and currently going [...] agrees with the plan. All questions answered. [id number] David Hancock MD [facility] [address] [place] [address] 07/04/2018 15:00:24 07/04/2018 15:33:37 Essential hypertension 82104832 I10 Well controlled today. Is not taking her medication s as prescribed . She stopped taking her medication s 1 week ago, Amlodipine 5 mg, Lisinopril 10 mg, Metoprolol 200 mg qd and Magnesium Oxide. Palpitations 28440286 R0 0.2 less frequent. Had [employer] 7 day monitor 01/23/2018 which demonstrat ed [...] TSH 2.330 07/06 stopped MagOxide Chest pain 62366142 R07. 9 Atypical. Improved. Intermitte nt and non-exerti onal. Had echo 06/14/17: normal LV systolic function, mild LVH, EF 57%, mild AI. Had exercise nuclear test 06/14/17: below average exercise capacity, no ischemia, LVEF >70%. Tachycardia 2331203 R00. 0 Improved but intermitte nt palpitatio ns on Metoprolol 200 mg qd. Had 05/25/18 TSH 2.330. Hypercholesterolemia 136 77146 E78.2 Needs to keep LDL less than 70, and HDL more than 40. Began Atorvastat in 20 mg qHS 07/04/17. Increased Atorvastat in to 40 mg once daily 05/29/18. LDL was 131 on 05/25/18 Will start Fish Oil 1000 mg twice daily for TG 258. Will repeat FLP before next visit. Diabetes mellitus 593754 09 E11.59 Discussed importance of tight glycemic control to minimize cardiovasc ular disease progressio n. Follows with endo. Pain in bi lateral legs [id number] 2835509 M79.604 Had Normal ankle-brac hial index done in 10/26/17. Edema of l anjuer extremity 422928692 R60.0 Improved. Started on HCTZ 12.5 mg 01/20/18 with resolution of edema but with increased Cr, prompting cessation of hydrochlor othiazide Feb 15 2018. Had negative Venous Doppler for DVT on 01/20/18. Dizziness 977525415 R42 Intermitte nt. Had Carotid US on 02/22/18 showing mild bilateral internal carotid artery stenosis with less than 60% diameter stenosis. Stopped HCTZ given increased BUN and Cr. Anxiety 60273654 F41.9 History of anxiety and currently going [...] agrees with the plan. All questions answered. [id number] Adan Dobbins MD [facility] [address] [place] [id number] 11/08/2018 15:21:24 11/08/2018 17:38:34 Essential hypertension [id number] I10 Well-contr olled today despite stopping all of her anti-hyper tensives on her own since 06/2018. She lost 23 lbs. since January 2018 and is more active. Is not taking her medication s as prescribed . She stopped taking her medication s 11/08/18: Amlodipine 5 mg, Lisinopril 10 mg, Metoprolol 200 mg qd and Magnesium Oxide. BP diary. Palpitations 08115952 R0 0.2 Less frequent. Had Cardea 7 [...] 1.5. Had 05/25/18 TSH 2.330 Chest pain 61364107 R07. 9 Atypical. Improved. Intermitte nt and non-exerti onal. Had echo 06/14/17: normal LV systolic function, mild LVH, EF 57%, mild AI. Had exercise nuclear test 06/14/17: below average exercise capacity, no ischemia, LVEF >70%. Tachycardia 8042280 R00. 0 Improved but intermitte nt palpitatio ns on Metoprolol 200 mg qd, which she self-disco ntinued. Had 05/25/18 TSH 2.330. Hypercholesterolemia 136 24270 E78.2 Needs to keep LDL less than 70, and HDL more than 40. Began Atorvastat in 20 mg qHS 07/04/17. Increased Atorvastat in to 40 mg once daily 05/29/18. LDL was 131 on 05/25/18 She stopped atorvastat in on her own 06/2018. Obtain FLP. Diabetes mellitus 890987 09 E11.59 Discussed importance of tight glycemic control to minimize cardiovasc ular disease progressio n. Follows with endo. Pain in bi lateral legs [id number] 9252905 M79.604 Had Normal ankle-brac hial index done in 10/26/17. Edema of l ower extremity 443664501 R60.0 Improved. Started on HCTZ 12.5 mg 01/20/18 with resolution of edema but with increased Cr, prompting cessation of hydrochlor othiazide Feb 15 2018. Had poor liquid intake at that time. Had negative Venous Doppler for DVT on 01/20/18. Dizziness 312125193 R42 Intermitte nt. Improved. Had Carotid US on 02/22/18 showing mild bilateral internal carotid artery stenosis with less than 60% diameter stenosis. Needs repeat carotid U/S 02/2019. Stopped HCTZ given increased BUN and Cr. Anxiety 86334988 F41.9 Improved. History of anxiety and currently going through major life changes. [id number] Adan Dobbins MD [facility] [address] [place] [phone] 01/13/2022 14:02:40 01/13/2022 16:32:52 Essential hypertension 42406774 I10 Well-contr olled today despite stopping all of her anti-hyper tensives on her own since 06/2018. She lost 23 lbs. since January 2018 and is more active. Is not taking her medication s as prescribed . She stopped taking her medication s 11/08/18: Amlodipine 5 mg, Lisinopril 10 mg, Metoprolol 200 mg qd and Magnesium Oxide. BP diary. Palpitations 56815096 R0 0.2 Less frequent. Had Cardea 7 [...] 1.5. Had 05/25/18 TSH 2.330 Chest pain 95115857 R07. 9 Patient presents with chest pain [...] stress test normal, consider stopping ASA. Tachycardia 5673913 R00. 0 Improved but intermitte nt palpitatio ns on Metoprolol 200 mg qd, which she self-disco ntinued. Had 9/6/18 TSH 2.330. Hypercholesterolemia 136 79992 E78.2 Needs to keep LDL less than 70, and HDL more than 40. Began Atorvastat in 20 mg qHS 07/04/17. Increased Atorvastat in to 40 mg once daily 05/29/18. LDL was 131 on 05/25/18 She stopped atorvastat in on her own 06/2018. Obtain FLP. Diabetes mellitus 831851 09 E11.59 Discussed importance of tight glycemic control to minimize cardiovasc ular disease progressio n. Follows with endo. Pain in bi lateral legs 0154525241 4259584 M79.604 Had Normal ankle-brac hial index done in 10/26/17. Edema of l ower extremity 119804291 R60.0 Intermitte nt. Started on HCTZ 12.5 mg 01/20/18 with resolution of edema but with increased Cr, prompting cessation of hydrochlor othiazide Feb 15 2018. Had poor liquid intake at that time. Had negative Venous Doppler for DVT on 01/20/18. Elevate legs.Compr ession stockings. Low Na diet. Consider HCTZ pending labs. Dizziness 587783772 R42 Intermitte nt. Improved. Had Carotid US on 02/22/18 showing mild bilateral internal carotid artery stenosis with less than 60% diameter stenosis. Needs repeat carotid U/S. Anxiety 84856225 F41.9 Improved. History of anxiety and currently going through major life changes. Aortic edita ve regurgitation 05159048 I35.1 Mild. Had 06/14/17 ECHO: Normal left ventricula r systolic function , no local well motion abnormalit ies, normal left ventricula r size , mild concentric left ventricula r hypertroph y, normal left ventricula r diastolic function, EF 57%, Mild aortic valve regurgitat ion. Obtain echo to evaluate for structural /functiona l disease. 13050 Adan Dobbins MD [facility] [address] [place] [phone] 02/03/2022 10:46:00 02/03/2022 11:59:11 Aortic valve regurgitation 65250342 I35.1 Mild. Had 06/14/17 ECHO: Normal left ventricula r systolic function , no local well motion abnormalit ies, normal left ventricula r size , mild concentric left ventricula r hypertroph y, normal left ventricula r diastolic function, EF 57%, Mild aortic valve regurgitat ion. Obtain echo to evaluate for structural /functiona l disease. Essential hypertension 17123366 I10 Well-contr olled today despite stopping all of her anti-hyper tensives on her own since 06/2018. She lost 23 lbs. since January 2018 and is more active. Is not taking her medication s as prescribed . She stopped taking her medication s 11/08/18: Amlodipine 5 mg, Lisinopril 10 mg, Metoprolol 200 mg qd and Magnesium Oxide. BP diary. Dizziness 353878872 R42 Intermitte nt. Improved. Had Carotid US on 02/22/18 showing mild bilateral internal carotid artery stenosis with less than 60% diameter stenosis. Needs repeat carotid U/S. Pain in bi lateral legs 7419381350 2106029 M79.604 Had Normal ankle-brac hial index done in 10/26/17. Tachycardia 8831438 R00. 0 Improved but intermitte nt palpitatio ns on Metoprolol 200 mg qd, which she self-disco ntinued. Had 05/25/18 TSH 2.330. Anxiety 37680299 F41.9 Improved. History of anxiety and currently going through major life changes. Diabetes mellitus 521038 09 E11.59 Discussed importance of tight glycemic control to minimize cardiovasc ular disease progressio n. Follows with endo. Edema of l ower extremity 453940581 R60.0 Intermitte nt. Minimal. Started on HCTZ 12.5 mg 01/20/18 with resolution of edema but with increased Cr, prompting cessation of hydrochlor othiazide Feb 15 2018. Had poor liquid intake at that time. Had negative Venous Doppler for DVT on 01/20/18. Elevate legs.Compr ession stockings. Low Na diet. Consider HCTZ if edema increases. History of obesity 58745 3001 Z91.89 20 lb. weight loss recommende d over the next 2 months. Hypercholesterolemia 136 17559 E78.2 Needs to keep LDL less than [...] gm bid 02/03/22. Atypical chest pain 1025 01708 R07.89 Patient presents with chest pain with [...] . The patient agrees to proceed at [facility]. Had echo 06/14/17: normal LV systolic function, mild LVH, EF 57%, mild AI. Had exercise nuclear test 06/14/17: below average exercise capacity, no ischemia, LVEF >70%. Had 01/20/22 CMP-NA 138 K 4.0 CR 1.08 GL 106 CA 8.7 MAG 1.7 LIPID-TRIG 438 CHOL 265 LDL 137 HDL 39 CBC-WBC 8.9 RBC 4.32 HGB 13.8 HCT 39.3 PLT 234 Palpitations 36484032 R0 0.2 Less frequent. Had Cardea 7 [...] mg qd 12/05/17. Had 05/25/18 TSH 2.330 [id number] Adan Dobbins MD [facility] [address] [place] [address] 03/03/2022 15:38:56 03/03/2022 18:05:44 Aortic valve regurgitation 57578605 I35.1 Mild previously . Had US, echocardio [...] Mild aortic valve regurgitat ion. Essential hypertension 39976380 I10 Well-contr olled today despite stopping all of her anti-hyper tensives on her own since 06/2018. She lost 23 lbs. since January 2018 and is more active. Is not taking her medication s as prescribed . She stopped taking her medication s 11/08/18: Amlodipine 5 mg, Lisinopril 10 mg, Metoprolol 200 mg qd and Magnesium Oxide. BP diary. Dizziness 935430248 R42 Intermitte nt. Improved. Had US, carotid artery ( 2) Antegrade flow noted in both vertebral arteries. Mild bilateral internal carotid artery stenosis with less than 50% diameter stenosis. Had Carotid US on 02/22/18 showing mild bilateral internal carotid artery stenosis with less than 60% diameter stenosis. Needs repeat carotid U/S 02/2023. Pain in bi lateral legs 1448160650 0918348 M79.604 Had Normal ankle-brac hial index done in 10/26/17. Tachycardia 3312088 R00. 0 Improved but intermitte nt palpitatio ns on Metoprolol 200 mg qd, which she self-disco ntinued. Had 05/25/18 TSH 2.330. Anxiety 42716082 F41.9 Improved. History of anxiety and currently going through major life changes. Diabetes mellitus 753182 09 E11.59 Discussed importance of tight glycemic control to minimize cardiovasc ular disease progressio n. Follows with endo. Edema of l ower extremity 481171836 R60.0 Intermitte nt. Minimal. Started on HCTZ 12.5 mg 01/20/18 with resolution of edema but with increased Cr, prompting cessation of hydrochlor othiazide Feb 15 2018. Had poor liquid intake at that time. Had negative Venous Doppler for DVT on 01/20/18. Elevate legs.Compr ession stockings. Low Na diet. Consider HCTZ if edema increases. History of obesity 11030 3001 Z91.89 20 lb. weight loss recommende d over the next 2 months. Hypercholesterolemia 136 41815 E78.2 Needs to keep LDL less than [...] FLP 1 mo. Atypical chest pain 1025 01316 R07.89 Patient presents with chest pain with [...] HGB 13.8 HCT 39.3 PLT 234 Palpitations 56912179 R0 0.2 Less frequent. Had [employer] 7 day monitor 01/23/2018 which demonstrat ed [...] 12/05/17. Had 05/25/18 TSH 2.330 Coronary arteriosclerosis 43470019 I25.10 Mild-moder ate CAD. Had [facility] 02/18/22: mild to moderate CAD (40% stenosis mid LCx, LAD and RCA no significan t disease, RCA non-domina nt), normal LV systolic function, normal LVEDP. Continue ASA. Needs to keep LDL less than 70, and HDL more than 40. Pre-surger y evaluation 918309510 Z01.818 There is no cardiac contraindi cation for the procedure. The planned procedure would be within acceptable risk. Patient may stop taking aspirin five (5) days prior to the procedure. [id number] Adan Dobbins MD [facility] [place] [address] 05/05/2022 14:17:27 05/05/2022 15:27:04 Aortic valve regurgitation 08683397 I35.1 Mild previously . Had US, echocardio [...] Mild aortic valve regurgitat ion. Essential hypertension 50437912 I10 Well-contr olled with diet today despite [...] Oxide. BP diary. Obtain BMP, Mg. Dizziness 660747192 R42 Intermitte nt. Postural. Had US, carotid artery ( 2) Antegrade flow noted in both vertebral arteries. Mild bilateral internal carotid artery stenosis with less than 50% diameter stenosis. Had Carotid US on 02/22/18 showing mild bilateral internal carotid artery stenosis with less than 60% diameter stenosis. Needs repeat carotid U/S 02/2023. Pain in bi lateral legs 9650431422 4458983 M79.604 Had Normal ankle-brac hial index done in 10/26/17. Tachycardia 7413227 R00. 0 Improved but intermitte nt palpitatio ns on Metoprolol 200 mg qd, which she self-disco ntinued. Had 05/25/18 TSH 2.330. Anxiety 85330155 F41.9 Improved. History of anxiety and currently going through major life changes. Diabetes mellitus 314363 09 E11.59 Discussed importance of tight glycemic control to minimize cardiovasc ular disease progressio n. Follows with endo. Edema of l ower extremity 307871540 R60.0 Intermitte nt. Minimal. Started on HCTZ 12.5 mg 01/20/18 with resolution of edema but with increased Cr, prompting cessation of hydrochlor othiazide Feb 15 2018. Had poor liquid intake at that time. Had negative Venous Doppler for DVT on 01/20/18. Elevate legs.Compr ession stockings. Low Na diet. Consider HCTZ if edema increases. History of obesity 07506 3001 Z91.89 20 lb. weight loss recommende d over the next 2 months. Hypercholesterolemia 136 47650 E78.2 Needs to keep LDL less than [...] CPK 72 normal. Atypical chest pain 1025 95162 R07.89 Patient presents with chest pain with atypical features and exertional dyspnea which can be an anginal equivalent , improved. Had exercise nuclear stress test 01/26/22: positive for ischemia, with reversible defect consistent with ischemia in laura[place]ain[place] area (new compared with 06/14/17).H ad [facility] 02/18/22: mild to moderate CAD [...] 13.8 HCT 39.3 PLT 234 Coronary arteriosclerosis 00107572 I25.10 Mild-moder ate CAD. Had [facility] 02/18/22: mild to moderate CAD (40% stenosis mid LCx, LAD and RCA no significan t disease, RCA non-domina nt), normal LV systolic function, normal LVEDP. Continue ASA. Needs to keep LDL less than 70, and HDL more than 40. Palpitations 91459264 R0 0.2 Resolved. Had Cardea 7 day [...] 152 CA 9.0 MAG 1.6 CK 72 [id number] Adan Dobbins MD [facility] [place] [address] 10/27/2022 11:20:27 10/27/2022 12:56:22 Aortic valve regurgitation 26016581 I35.1 Mild previously . Had US, echocardio [...] Mild aortic valve regurgitat ion. Essential hypertension 43972522 I10 Well-contr olled with diet today despite [...] BP diary. Obtain BMP, Mg, drawn at [facility]. 10/25/22. Dizziness 682531001 R42 Intermitte nt. Postural. Had US, carotid artery ( 2) Antegrade flow noted in both vertebral arteries. Mild bilateral internal carotid artery stenosis with less than 50% diameter stenosis. Had Carotid US on 02/22/18 showing mild bilateral internal carotid artery stenosis with less than 60% diameter stenosis. Needs repeat carotid U/S 01/2023. Pain in bi lateral legs 2282849809 9617855 M79.604 Had Normal ankle-brac hial index done in 10/26/17. Tachycardia 3169307 R00. 0 Improved but intermitte nt palpitatio ns on Metoprolol 200 mg qd, which she self-disco ntinued. Had 05/25/18 TSH 2.330. Anxiety 61686956 F41.9 Improved. History of anxiety and currently going through major life changes. Diabetes mellitus 501014 09 E11.59 Discussed importance of tight glycemic control to minimize cardiovasc ular disease progressio n. Follows with endo. Edema of l ower extremity 301845875 R60.0 Intermitte nt. Minimal. Started on HCTZ 12.5 mg 01/20/18 with resolution of edema but with increased Cr, prompting cessation of hydrochlor othiazide Feb 15 2018. Had poor liquid intake at that time. Had negative Venous Doppler for DVT on 01/20/18. Elevate legs.Compr ession stockings. Low Na diet. Consider HCTZ if edema increases. Obtain labs 10/25/21 [facility]. History of obesity 03568 3001 Z91.89 20 lb. weight loss recommende d over the next 2 months. Hypercholesterolemia 136 97460 E78.2 Needs to keep LDL less than [...] CPK 72 normal. Atypical chest pain 1025 27518 R07.89 Patient presents with chest pain with atypical features and exertional dyspnea which can be an anginal equivalent , improved. Had exercise nuclear stress test 01/26/22: positive for ischemia, with reversible defect consistent with ischemia in [place]ura[place] area (new compared with 06/14/17).H ad [facility] 02/18/22: mild to moderate CAD [...] 13.8 HCT 39.3 PLT 234 Coronary arteriosclerosis 42096652 I25.10 Mild-moder ate CAD. Had [facility] 02/18/22: mild to moderate CAD (40% stenosis mid LCx, LAD and RCA no significan t disease, RCA non-domina nt), normal LV systolic function, normal LVEDP. Continue ASA. Needs to keep LDL less than 70, and HDL more than 40. Palpitations 48540292 R0 0.2 Resolved. Had Cardea 7 day [...] MAG 1.6 CK 72 Pre-surger y evaluation 731122373 Z01.818 There is no cardiac contraindi cation for the procedure. The planned procedure would be within acceptable risk. Patient may stop taking aspirin five (5) days prior to the procedure. [id number] Adan Dobbins MD [facility] [address] [place] [address] 01/05/2023 14:00:47 01/05/2023 14:46:55 Aortic valve regurgitation 40710115 I35.1 Mild previously . Had US, echocardio [...] regurgitat ion. Obtain echo 03/2023. Essential hypertension 15685413 I10 Well-contr olled with diet today despite [...] CR 1.12 GL 177 CA 9.0 Dizziness 791926071 R42 Intermitte nt. Postural. Had US, carotid artery ( 2) Antegrade flow noted in both vertebral arteries. Mild bilateral internal carotid artery stenosis with less than 50% diameter stenosis. Had Carotid US on 02/22/18 showing mild bilateral internal carotid artery stenosis with less than 60% diameter stenosis. Needs repeat carotid U/S 02/2023. Pain in bi lateral legs 4455303472 6335684 M79.604 Had Normal ankle-brac hial index done in 10/26/17. Tachycardia 7797379 R00. 0 Improved but intermitte nt palpitatio ns on Metoprolol 200 mg qd, which she self-disco ntinued. Had 05/25/18 TSH 2.330. Anxiety 20497131 F41.9 Improved. History of anxiety and currently going through major life changes. Diabetes mellitus 368760 09 E11.59 Discussed importance of tight glycemic control to minimize cardiovasc ular disease alen n. Follows with endo. Edema of l ower extremity 266628259 R60.0 Intermitte nt. Minimal. Started on HCTZ 12.5 mg 01/20/18 with resolution of edema but with increased Cr, prompting cessation of hydrochlor othiazide Feb 15 2018. Had poor liquid intake at that time. Had negative Venous Doppler for DVT on 01/20/18. Elevate legs.Compr ession stockings. Low Na diet. Consider HCTZ if edema increases. History of obesity 29663 3001 Z91.89 20 lb. weight loss recommende d over the next 2 months. Hypercholesterolemia 136 79646 E78.2 Needs to keep LDL less than [...] Mg, TSH, CBC. Atypical chest pain 1025 26085 R07.89 Resolved. Had exercise nuclear stress test [...] 13.8 HCT 39.3 PLT 234 Coronary arteriosclerosis 72181902 I25.10 Mild-moder ate CAD. Had [facility] 02/18/22: mild to moderate CAD (40% stenosis mid LCx, LAD and RCA no significan t disease, RCA non-domina nt), normal LV systolic function, normal LVEDP. Continue ASA. Intolerant of lisinopril with altered mental status. Needs to keep LDL less than 70, and HDL more than 40. Palpitations 51617956 R0 0.2 Resolved. Had Cardea 7 day [...] Member ID Guarantor Name 05/03/2025 1 [id number] Niles Croft [id number] 1 Niles Croft Notes Date Note Type [...] She is having R ankle surgery at [place] in [facility] with Dr. Phillips, date pending. Reports home [...] related. She had fasting blood work at [place] on 05/25/18 which was all WNL except [...] >70%. Had normal [facility] on 10/21/17. Had [employer] 7 day monitor 01/23/2018 which demonstrated normal [...] She is having R ankle surgery at [place] in [facility] with Dr. Phillips, date pending. Reports home [...] related. She had fasting blood work at [place] on 05/25/18 which was all WNL except [...] correlated with normal sinus rhythm. Adan kolb [place] - [facility] 02/03/2022 11:48:28 03/03/2022 text/html 03/03/22 CC: Chest pain 51 year-old woman with history of HTN, aortic valve regurgitation, obesity, diabetes mellitus, CKD, family history of CAD, former tobacco use (quit 05/2016), anxiety, depression, is seen in cardiac consultation for chest pain. She was last in the office 4 weeks ago. Had [facility] 02/18/22: mild to moderate CAD (40% stenosis mid LCx, LAD and RCA no significant disease, RCA non-dominant), normal LV systolic function, normal LVEDP. She is having R ankle surgery at [place] in [facility] with Dr. Phillips, date pending. Reports home [...] related. She had fasting blood work at [place] on 05/25/18 which was all WNL except [...] >70%. Had normal [place] on 10/21/17. Had [employer] 7 day monitor 01/23/2018 which demonstrated normal [...] events correlated with normal sinus rhythm. Had [facility] 02/18/22: mild to moderate CAD (40% stenosis mid LCx, LAD and RCA no significant disease, RCA non-dominant), normal LV systolic function, normal LVEDP. Adan Dobbins [place], [place] - [facility] 03/03/2022 17:58:07 05/05/2022 text/html 05/05/22 CC: Chest pain 51 year-old woman with history of CAD, carotid artery stenosis, HTN, aortic valve regurgitation, obesity, diabetes mellitus, CKD, family history of CAD, former tobacco use (quit 05/2016), anxiety, depression, is seen in cardiac consultation for chest pain. She was last in the office 8 weeks ago. Had [facility] 02/18/22: mild to moderate CAD (40% stenosis mid LCx, LAD and RCA no significant disease, RCA non-dominant), normal LV systolic function, normal LVEDP. She had R ankle surgery at [place] in [facility] with Dr. Phillips 03/2022. Reports home BP [...] related. She had fasting blood work at [place] on 05/25/18 which was all WNL except [...] LV systolic function, normal LVEDP. Adan Dobbins [facility], [place] - [facility] 05/05/2022 15:19:25 10/27/2022 [...] R foot tendon repair, date pending. Had [facility] 02/18/22: mild to moderate CAD (40% stenosis mid LCx, LAD and RCA no significant disease, RCA non-dominant), normal LV systolic function, normal LVEDP. She had R ankle surgery at [place] in [facility] with Dr. Phillips 03/2022. Reports home BP [...] related. She had fasting blood work at [place] on 05/25/18 which was all WNL except [...] events correlated with normal sinus rhythm. Had [facility] 02/18/22: mild to moderate CAD (40% stenosis mid LCx, LAD and RCA no significant disease, RCA non-dominant), normal LV systolic function, normal LVEDP. Adan Dobbins [place], [place] - [facility] 10/27/2022 12:49:30 [...] had R foot tendon repair 10/28/22. Had [facility] 02/18/22: mild to moderate CAD (40% stenosis mid LCx, LAD and RCA no significant disease, RCA non-dominant), normal LV systolic function, normal LVEDP. She had R ankle surgery at [place] in [facility] with Dr. Phillips 03/2022. Reports home BP [...] related. She had fasting blood work at [place] on 05/25/18 which was all WNL except [...] >70%. Had normal [facility]HELSEA on 10/21/17. Had [employer] 7 day monitor 01/23/2018 which demonstrated normal [...] LV systolic function, normal LVEDP. Adan kolb AK - [facility] 01/05/2023 14:34:41 OBGyn Episode No OBEpisode recorded.
--- OUTSIDE RECORDS SUMMARY | 2025-08-01 14:19 | XMS_ITS | Patient Health Record ---
Author Organization [facility] [employer] 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 Role Phone Roland Rojas DO Primary Care Provider Unavail able Julian Cummings Unavailable [phone] Allergies Allergen (clinical drug ingredient) Drug/Non Drug [...] ICOSAPENT ETHYL 1 GRAM CAPSULE *Reorder from [employer] for eRx and Interaction Alerts* 12/21/2023 Active Rosuvastatin Calcium 40 MG Tablet Oral 12/21/2023 Active oxyCODONE HCl 5 MG Tablet Oral 12/21/2023 Active Gabapentin 300 MG Capsule Oral 12/21/2023 Active Magnesium Oxide (Elemental) 400 MG Tablet Oral *Reorder from [employer] for eRx and Interaction Alerts* 12/21/2023 Active [...] Problem Bipolar affective disorder, currently depressed, moderate ([id number]) Bipolar disorder, current episode depressed, moderate (F31.32) 12/21/19 24 Active confirmed Problem Attention deficit hyperactivity disorder, combined type (31241466) Attention-deficit hyperactivity disorder, combined type (F90.2) Active confirmed Vital Signs Heart Rate 99 /min 05/03/2025 Height-cm 170.18 cm 05/03/2025 Blood pressure diastolic 74 mm Hg 05/03/2025 Weight-kg 95.07 kg 05/03/2025 Height 67.00 in 05/03/2025 Blood pressure systolic 122 mm Hg 05/03/2025 Weight 209.6 lbs 05/03/2025 BMI 32.82 kg/m2 05/03/2025 Encounters Encounter Location Date Provider Diagnosis [facility] [address] [address] 09/26/2024 Julian Cummings Attention-deficit hyperactivity disorder, combined type F90.2 and Bipolar disorder, current episode depressed, moderate F31.32 [facility] [address] [place] [address] [address] [facility] [address] [place] [address] 12/06/2024 Julian Cummings Encounter for screen ing for cardiovascular disorders Z13.6 ; Encounter for screening for depression Z13.31 ; Attention-deficit hyperactivity disorder, combined type F90.2 and Bipolar disorder, current episode depressed, moderate F31.32 [facility] [address] [place] [address] [address] [facility] [address] [place] [address] 01/07/2025 Julian Cummings Encounter for screen ing for cardiovascular disorders Z13.6 ; Encounter for screening for depression Z13.31 ; Attention-deficit hyperactivity disorder, combined type F90.2 and Bipolar disorder, current episode depressed, moderate F31.32 [facility], [facility] [address] [place] [address] [place] [address] 02/19/2025 Julian Cummings Encounter for screen ing for cardiovascular disorders Z13.6 ; Encounter for screening for depression Z13.31 ; Attention-deficit hyperactivity disorder, combined type F90.2 and Bipolar disorder, current episode depressed, moderate F31.32 [facility], [facility] [address] [place] [address] [place] [address] 03/29/2025 Julian Cummings Attention-deficit hyperactivity disorder, combined type F90.2 and Bipolar disorder, current episode depressed, moderate F31.32 [facility], [facility] [address] [place] [address] [place] [address] 05/03/2025 Julian Cummings Bipolar disorder, current episode depressed, moderate F31.32 and Attention-deficit hyperactivity disorder, combined type F90.2 [facility], [facility] [address] [place] [address] [place] [address] 08/28/2024 Julian Cummings Attention-deficit hyperactivity disorder, combined type F90.2 [facility], [facility] [address] [place] [address] [place] [address] 09/03/2024 Julian Jonesoza [facility], [facility] [address] [place] [address] [place] [address] 10/31/2024 Julian Jonesoza [facility], [facility] [address] [place] [address] [place] [address] 01/07/2025 Julian Jonesoza [facility], [facility] [address] [place] [address] [place] [address] 01/21/2025 Julian Cummings [facility], [facility] [address] [place] [address] [place] [address] 10/31/2024 Julian Cummings Attention-deficit hyperactivity disorder, combined type F90.2 [facility], [facility] [address] [place] [address] [place] [address] 10/31/2024 Julian Cummings Attention-deficit hyperactivity disorder, combined type F90.2 [facility], [facility] [address] [place] [address] [place] [address] 05/03/2025 Julian Cummings Attention-deficit hyperactivity disorder, combined type F90.2 [facility] [address] [place] [address] [place] [address] 05/03/2025 Julian Cummings [facility], [facility] [address] [place] [address] [place] [address] 06/17/2025 Julian Cummings [facility], [facility] [address] [facility] [address] [place] [address] 06/17/2025 Julian Cummings [facility], [facility] [address] [facility] [address] [place] [address] 06/17/2025 Julian Cummings Attention-deficit hyperactivity disorder, combined type F90.2 [facility] [address] [facility] [address] [place] [address] 06/18/2025 Julian Cummings [facility] [address] [facility] [address] [place] [address] 07/10/2025 Julian Cummings Attention-deficit hyperactivity disorder, combined [...] twice daily and Vraylar 3 mg. - Central Supply Aide does not want to increase Vraylar due [...] episode depressed, moderate (ICD-10 - F31.32) 02/19/2025 Encounter for screening for cardiovascular disorders (ICD-10 - Z13.6) 05/03/2025 Attention-defic it hyperactivity disorder, combined type (ICD-10 - F90.2) 06/17/2025 Attention-defic it hyperactivity disorder, combined type (ICD-10 - F90.2) 07/10/2025 Attention-defic it hyperactivity disorder, combined type (ICD-10 - F90.2) 02/19/2025 Encounter for screening for depression (ICD-10 - Z13.31) 05/03/2025 Attention-defic it hyperactivity disorder, combined type (ICD-10 - F90.2) 01/07/2025 Encounter for screening for depression (ICD-10 - Z13.31) 12/06/2024 Encounter for screening for depression (ICD-10 - Z13.31) 09/26/2024 Bipolar disorder, current episode depressed, moderate (ICD-10 - F31.32) 1. Depression: - Patient reports feeling more depressed over the last 6 months. - Currently on Cymbalta 30 mg twice daily and Vraylar 3 mg. - Central Supply Aide does not want to increase Vraylar due [...] Provider Name:Julian shaw, 08/05/2025 01:30:00 PM, [address] [facility] [address], [facility] [address], [place], [address], Insurance Providers Payer Name Payer Address Payer Phone Subscriber Number Group Number Insured Name Patient Relationship to Insured Coverage Start Date Coverage End Date Cigna [address] [place] [address] [id number] IZABELA PARRA Self - patient is the insured Medicaid-[place] l Medicaid [address] [address] [place] [address] [id number] IZABELA PARRA Self - patient is the insured Medical (General) History Medical History History ICD Code Problems: Attention deficit hyperactivit y disorder, combined type Bipolar affective disorder, current epis ode depression , Surgical History Surgery Date(Month/Year) Other 09/19/1998 Hysterectomy (82776) 09/19/1999 Removal of gallbladder (76345) 1 Any surgical history 09/19/2009 Appendectomy (92831) 09/20/1993
--- OUTSIDE RECORDS SUMMARY | 2025-08-01 14:19 | XMS_ITS | Encounter Summary ---
Author Organization [facility] Address [address] [place] [address] Care Team Providers Care Insurance Verify Rep Name Role Phone RaminRoland sharma Primary Care Provider [phone] Reason for Visit * Reason Comments Lab (SCAN) Encounter Details Date Type Department Care Team (Latest Contact Info) Description 07/29/2025 Scan [facility] Scanned, Doc Med Group Lab (SCAN) Social History Tobacco Use Types Packs/Day Years Used Date Smoking Tobacco: Never Smokeless Tobacco: Never Alcohol Use Standard Drinks/Week Comments Yes 0 (1 standard drink = 0.6 oz pur e alcohol) social OASIS D0700: Social Isolation Answer Da te Recorded Frequency of experiencing loneliness or isolatio n Rarely 07/24/2025 OASIS A1250: Transportation Answer Date Recorded Lack of Transportation (Medical) No 07/24/2025 Lack of Transportation (Non-Medical) No 07/24/2025 Patient Unable or Declines to Respond No 07/24/2025 OASIS B1300: Health Literacy Answer Bharat e Recorded Frequency of needing help to read materials from doctor or pharmacy Never 07/24/2025 PHQ-2 Answer Date Recorded Patient Health Questionnaire-2 Score 0 07/17/2025 Humiliation, Afraid, Rape, and Kick questionnair e Answer Date Recorded Within the last year, have y ou been afraid of your partner or ex-partner? No 07/18/2025 Within the last year, have y ou been humiliated or emotionally abused in other ways by your partner or ex-partner? No Within the last year, have y ou been kicked, hit, slapped, or otherwise physically hurt by your partner or ex-partner? No 07/18/2025 Within the last year, have y ou been raped or forced to have any kind of sexual activity by your partner or ex-partner? No 07/18/2025 Overall Financial Resource Strain (CARDIA) Answe r Date Recorded How hard is it for you to pa y for the very basics like food, housing, medical care, and heating? Somewhat hard 07/18/2025 Hunger Vital Sign Answer Date Recorded Within the past 12 months, y ou worried that your food would run out before you got the money to buy more. Never true 07/18/20 25 Within the past 12 months, t he food you bought just didn't last and you didn't have money to get more. Never true 07/18/2025 PRAPARE - Transportation Answer Date Re corded In the past 12 months, has l ack of transportation kept you from medical appointments or from getting medications? No 06/21 In the past 12 months, has l ack of transportation kept you from meetings, work, or from getting things needed for daily living? No 07/18/2025 Housing Stability Vital Sign Answer Bharat e Recorded In the last 12 months, was t here a time when you were not able to pay the mortgage or rent on time? No 07/18/2025 In the past 12 months, how m any times have you moved where you were living? 0 07/18/2025 At any time in the past 12 m [facility], were you homeless or living in a mcc (including now)? No 07/18/2025 [facility] Utilities Answer Date Recorded In the past 12 months has th e [employer], gas, oil, or water [employer] threatened to shut off services in your home? 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 Answer Date of Assessment Author Status No 07/18/2025 6:09 PM CDJason Rivas R N Active * Do you have serious difficulty walking or climbing stairs? Answer Date of Assessment Author Status No 07/18/2025 6:09 PM CDJason Rivas R N Active * Do you have difficulty dressing or bathing? Answer Date of Assessment Author Status No 07/18/2025 6:09 PM CDT Jason Hays R N Active * Because of a physical, mental, or emotional condition, do you have difficulty doing errands alone such as visiting a doctor's office or shopping? Answer Date of Assessment Author Status No 07/18/2025 6:09 PM Jason Mclean R N Active documented as of this encounter Mental Status * Because of a physical, mental, or emotional condition, do you have serious difficulty concentrating, remembering, or making decisions? Answer Entry Date Author Status No 07/18/2025 6:09 PM Jason Mclean R N Active documented in this encounter Plan of Treatment Upcoming Encounters Date Type Department Care Team (Late st Contact Info) Description 08/05/2025 12:30 PM LAWYER CRIMINAL Appointment [facility] [address] [place] [address] Marah Witt, RN 08/06/2025 1:00 PM LAWYER CRIMINAL Office Visit [facility] Orthopedic [facility] [address] [address] [address] [place], [place] [address] [place] [address] 08/12/2025 10:00 AM LAWYER CRIMINAL Appointment [facility] [address] [place] [address] Marah Witt, RN 08/19/2025 8:00 AM LAWYER CRIMINAL Appointment [facility] [address] [place] [address] Marah Witt, RN 08/26/2025 9:00 AM LAWYER CRIMINAL Appointment [facility] [address] [place] [address] Marah Witt, RN documented as of this encounter Procedures Procedure Name Priority Date/Time Associated Diagnosis Comments OUTSIDE LAB (SCAN ORDER) 07/29/2025 OUTSIDE LAB (SCAN ORDER) 07/29/2025 OUTSIDE LAB (SCAN ORDER) 07/29/2025 documented in this encounter Results * OUTSIDE LAB (SCAN ORDER) (07/29/2025) 07/29/2025 [employer] [facility] Scanned SCANNING Final Resu lt * OUTSIDE LAB (SCAN ORDER) (07/29/2025) 07/29/2025 [employer] [facility] Scanned SCANNING Final Resu lt * OUTSIDE LAB (SCAN ORDER) (07/29/2025) 07/29/2025 [employer] [facility] Scanned SCANNING Final Resu lt documented in this encounter Visit Diagnoses Not on filedocumented in this encounter Additional Health Concerns Assessment Noted Time PHQ-9 Depression Total Score: 0 07/17/20 25 2:34 PM CDT documented as of this encounter Care Teams Insurance Verify Rep Relationship Specialty Start Date End Date Roland Rojas DO [address] [place] [address] PCP - General FAMILY PRACTICE 07/22/25 documented as of this encounter
--- OUTSIDE RECORDS SUMMARY | 2025-08-01 14:19 | XMS_ITS | Clinical Summary ---
Author Organization [facility] Address [facility] [place] [address] Care Team Providers Care Train Planner Name Role Phone FelipaRoland haile DO Primary Care Provider [phone] Allergies Active Allergy Reactions Criticality Noted Date Comments Ciprofloxacin Rash Medium 08/08/2023 Prochlorperazine Shortness of Breath, Other (see comment) High 11/26/2016 [place] Medications aspirin 81 MG tabletIndications: heart Take 1 tablet by mouth nightly at bedtime. Indications: heart Active fluticasone propionate 50 MCG/ACT nasal sprayIndications:s inus 1 spray by Each Nostril route 2 (two) times daily. Indications: sinus Active montelukast 10 MG tabletIndications: allergy Take 1 tablet by mouth nightly at bedtime. Indications: allergy Active Blood Glucose Monitoring Suppl w/Device KitIndications:[facility] ont[facility] type 2 diabetes mellitus with hyperglycemia ([facility]) Use to test blood sugars three times daily 1 kit 09/05/20 19 Active icosapent ethyl 1 G capsuleIndications :fish oil Take 2 capsules by mouth 2 (two) times daily. Indications: fish oil Takes at noon and in the evening. Active buPROPion XL (WELLBUTRIN XL) 150 MG 24 hr tabletIndications: mood Take 1 tablet by mouth daily with lunch. Indications: mood Active oxyCODONE immediate release (ROXICODONE) 5 MG immediate release tabletIndications: Acute Pain < 7 Day Supply Take 1 tablet (5 mg total) by mouth every 4 (four) hours as needed. Indications: Acute Pain < 7 Day Supply 20 tablet 07/26/20 22 Active methylphenidate CR (CONCERTA) 36 MG tabletIndications: attention Take 1 tablet by mouth every morning. Indications: attention 08/17/20 22 Active magnesium oxide (MAG-OX) 400 (240 Mg) MG tabletIndications: supplement Take 1 tablet by mouth every evening. Indications: supplement 11/18/19 23 Active ONETOUCH ULTRA test stripIndications:U ncontrolled type 2 diabetes mellitus with hyperglycemia (CMS/HCC HHS/HCC) USE TO TEST THREE TIMES A DAY 300 strip 3 02/25/20 23 Active VRAYLAR 3 MG capsuleIndications :mood Take 1 capsule by mouth daily with lunch. Indications: mood 06/20/20 23 Active cyclobenzaprine (FLEXERIL) 10 MG tabletIndications: muscle spasm Take 1 tablet by mouth 3 (three) times daily as needed. Indications: muscle spasm Active furosemide (LASIX) 20 MG tabletIndications: diuretic Take 1 tablet by mouth as needed. Indications: diuretic 01/18/20 24 Active minoxidil (LONITEN) 2.5 MG tabletIndications: hair Take 0.5 tablets (1.25 mg total) by mouth daily. Indications: hair 01/30/20 24 Active cyanocobalamin (B-12) 1000 MCG/ML injectionIndicatio ns:supplement Inject 1 mL into the muscle every 30 (thirty) days. Indications: supplement Takes on Saturdays08/01/20 24 Active estrogens, conjugated, (PREMARIN) 1.25 MG tabletIndications: supplement Take 1 tablet by mouth daily. Indications: supplement 07/15/20 25 Active REPATHA 140 MG/ML injection (SYRINGE)Indicatio ns:cholesterol 1 mL every 14 (fourteen) days. Indications: cholesterol 07/08/20 25 Active levothyroxine (SYNTHROID) 50 MCG tabletIndications: thyroid Take 1 tablet by mouth every morning. Indications: thyroid Tries to take around 4-6 AM before meals. 02/02/20 25 Active predniSONE (DELTASONE) 5 mg tabletIndications: steroid Take 1 tablet by mouth daily. Indications: steroid 07/15/20 25 Active rimegepant (NURTEC) 75 MG disintegrating tabletIndications: migraine Take 1 tablet by mouth daily as needed for Migraine (If needed, takes at noon.). Indications: migraine 07/15/20 25 Active B-D 3CC LUER-KWAKU SYR 25GX1 25G X 1 3 ML Misc USE DIRECTED FOR INJECTIONS 07/11/20 25 Active MOUNJARO 7.5 MG/0.5ML injectionIndicatio ns:Diabetes Mellitus Inject 7.5 mg into the skin once a week. Indications: Diabetes Takes on Saturdays07/01/20 25 Active topiramate (TOPAMAX) 25 MG tabletIndications: migraine Take 1 tablet by mouth daily. Indications: migraine 07/15/20 25 Active gabapentin (NEURONTIN) 300 MG capsuleIndications :pain Take 1 capsule by mouth daily with lunch. Indications: pain Active gabapentin (NEURONTIN) 600 MG tabletIndications: pain Take 1 tablet by mouth nightly at bedtime. Indications: pain Active lamoTRIgine (LAMICTAL) 100 MG tabletIndications: mood Take 1 tablet by mouth daily with lunch. Indications: mood Active rosuvastatin (CRESTOR) 40 MG tabletIndications: cholesterol Take 1 tablet by mouth nightly at bedtime. Indications: cholesterol Active allopurinol (ZYLOPRIM) 100 MG tabletIndications: gout Take 1 tablet (100 mg total) by mouth daily for 30 days. Indications: gout 30 tablet 07/22/20 25 025 Active sodium chloride 0.9 % SOLN 500 mL with vancomycin 1 g SOLR 1,750 mgIndications:sept ic joint Inject 1,750 mg into the vein daily for 21 days. Indications: septic joint 21 vial 07/24/20 25 025 Active VANCOMYCIN HCL IN NACL IVIndications:abx Inject 1,750 mg into the vein daily. Indications: abx 07/24/20 25 Active heparin lock flush 10 UNIT/ML injectionIndicatio ns:line maint Inject 5 mLs into the vein daily. Indications: line maint 07/24/20 25 Active Cetirizine HCl (ZYRTEC ALLERGY) 10 MG Cap Take by mouth as needed. 025 Discontin ued(Error ) estradiol 2 MG tablet Take 1 tablet (2 mg total) by mouth daily. 10/18/19 21 025 Discontin ued(Error ) gabapentin (NEURONTIN) 300 MG capsuleIndications :Type 2 diabetes mellitus with diabetic autonomic neuropathy, without long-term current use of insulin ([facility]/HCC HHS/HCC) TAKE 1 CAPSULE THREE TIMES A DAY 270 capsule 3 01/22/20 23 Discontin ued(Error ) rosuvastatin (CRESTOR) 20 MG tablet Take 2 tablets (40 mg total) by mouth every evening. Discontin ued(Error ) clobetasol (TEMOVATE) 0.05 % cream RUB IN WELL TWICE A DAY TO INVOLVED AREAS OF BODY UNTIL CLEAR 06/06/20 23 Discontin ued(Error ) triamcinolone (KENALOG) 0.1 % cream Apply topically 2 (two) times daily. Discontin ued(Error ) mupirocin (BACTROBAN) 2 % ointment 1 APPLIC TOPICALLY TWICE A DAY INTRANASAL 01/09/20 24 Discontin ued(Error ) dulaglutide (TRULICITY) 3 MG/0.5ML injectionIndicatio ns:Uncontrolled type 2 diabetes mellitus with hyperglycemia ([facility]HS/[facility]) Inject 3 mg into the skin once a week. 2 mL 6 09/06/20 24 Discontin ued(Error ) DULoxetine (CYMBALTA) 30 MG capsule 08/26/20 24 Discontin ued(Error ) Active Problems Problem Noted Date Diagnosed Date Septic arthritis 07/18/2025 S/P peroneal tendon repair 12/22/2022 Traumatic rupture of peronea l tendon, right, subsequent encounter 11/04/2022 Overview (11/04/2022): Added automatically from request for surgery [id number] Right peroneal tendonosis 05/07/2022 Aortic valve regurgitation [...] Encounters Date Type Department Care Team Description 07/29/2025 12:15 PM [facility] Home Care Visit [facility] [place] [address] [place] [address] Marah Witt, RN SN HOME VISIT 07/29/2025 Scan Tranz INFO SRVCS Scanned, [facility] (SCAN) 07/24/2025 12:00 PM [facility] Home Care Visit [place] [address] [place] [address] Diana Ahn, RN SN OASIS START OF CARE 07/24/2025 Plan of Care Documentation [facility] Home [place] [address] [place] [address] 07/22/2025 8:30 AM [facility] Home Care Visit [place] [address] [place] [address] Delma Kaur RN LIAISON TELEPHONE CALL 07/19/2025 10:07 AM CDT Anesthesia Event [facility] [address] [place] [id number] Mariluz Urrutia, [place] MD 07/19/2025 10:00 AM CDT - 07/19/2025 10:59 AM CDT Surgery [facility] OR [address] [place] [address] Ahsan Carreon DO RIGHT KNEE ARTHROSCOPY WITH DEBRIDEMENT AND LAVAGE 07/18/2025 3:12 PM CDT - 07/23/2025 2:27 PM [facility] Hospital Encounter [facility] [address] [place] [address] Anais Malhotra MD Suresh, MD Austin Brand Rhonda, PA Engele, Christopher, APRN Joint Pain Discharge Disposition: Home with Home Health Care 07/18/2025 Travel 07/18/2025 Results [facility] [address] [place] [address] Stephanie Pal LPN CULTURE, BODY FLUID W/ GRAM STAIN 07/17/2025 5:35 PM CDT - 07/17/2025 11:59 PM CDT Hospital Encounter [facility] [address] [place] [address] Kyler Ocasio, [place] Discharge Disposition: Home or Self Care (Routine Discharge) 07/17/2025 2:00 PM CDT [facility] [address] [place] [address] Kyler Ocasio, [place] Knee Pain (Right Knee Pain) 07/17/2025 Scan [facility] INFO SRVCS Scanned, [facility] 07/17/2025 Orders Only [facility] [address] [place] [address] Kyler Ocasio, [place] 07/17/2025 Travel from Last 3 Months Family History Medical History Relation Comments Heart Disease Father Hypertension Father Alzheimers Maternal Grandfather Cancer Maternal Grandmother Colon cance r Hypertension Maternal Grandmother Cancer Mother Breast cancer, o varian cancer Heart Disease Mother Hypertension Mother No Known Problems Paternal Grandfather Cancer Paternal Grandmother Bladder can cer Relation Status Comments Father Alive Maternal Grandfather Maternal Grandmother Mother Paternal Grandfather Paternal Grandmother Social History Tobacco Use Types Packs/Day Years Used Date Smoking Tobacco: Never Smokeless Tobacco: Never Tobacco Cessation:Counseling Given: No Alcohol Use Standard Drinks/Week Comments Yes 0 [...] money to buy more. Never true 07/18/20 Within the past 12 months, t he [...] any time in the past 12 m onths, were you homeless or living in a prison (including now)? No 07/18/2025 [facility] Utilities Answer Date Recorded In the past 12 months has th e electric, gas, oil, or water company threatened to shut off services in your home? No 07/18/2025 Comments No Sex and Gender Information Value Date Recorded Sex Assigned at Female 08/12/2020 10:34 AM [facility] Legal Sex Female 10:58 PM [facility] Gender Identity Female 08/12/2020 10:34 AM [facility] Sexual Orientation Straight 08/12/2020 10 :34 AM [facility] Last Filed Vital Signs Vital Sign Reading Time Taken Comments Blood Pressure 156/81 07/23/2025 12:11 PM [facility] Pulse 86 07/23/2025 4:49 AM [facility] Temperature 36.8 C (98.2 F) 07/23/2025 12:11 PM [facility] Respiratory Rate 14 07/24/2025 12:33 PM [facility] Oxygen Saturation 100% 07/23/2025 12:11 PM [facility] Inhaled Oxygen Concentration - - Weight 90.5 kg (199 lb 9.6 oz) 07/18/2025 6:24 P M CDT Height 170.2 cm (5' 7) 07/18/2025 3:24 PM CDT Body Mass Index 31.26 07/18/2025 3:24 PM CDT Plan of Treatment Upcoming Encounters Date Type Department Care Team (Late st Contact Info) Description 08/05/2025 12:30 PM [facility] Appointment [facility] [address] [place] [address] Marah Witt, RN 08/06/2025 1:00 PM [facility] Office Visit [facility] Medical Group Orthopedic Surgery [facility] [address] [address] [address] K[place], [place] [address] [place] [address] 08/12/2025 10:00 AM [facility] Appointment [facility] [address] [place] [address] Marah Witt, RN 08/19/2025 8:00 AM [facility] Appointment [facility] [address] [place] [address] Marah Witt, RN 08/26/2025 9:00 AM [facility] Appointment [facility] [address] [place] [address] Marah Witt, RN Health Maintenance Due Date Last Done Comments Colorectal Cancer Screening Colonoscopy (10 Years) 1968 Kidney Health Evaluation 1968 Annual Physical 1971 Hepatitis C 1986 DTaP, Tdap and Td Vaccines (1 - Tdap) 1987 Hepatitis B Vaccines (1 of 3 - 19+ 3-dose series) 1987 Pneumococcal Vaccine: 50+ Years (1 of 2 - PCV) 1987 Mammogram Screening 2008 Zoster Vaccines (1 of 2) 2018 Hemoglobin A1C 03/07/2025 09/06/2024, 08/20, 08/27/2022, Additional history exists COVID-19 Vaccine (1 - 2024- season) 2025 Influenza Adult (#1) 2025 Diabetes: Retinopathy Eye Exam 06/20/2025 06/20/2023 Lipid Panel 06/14/2026 06/14/2025, 08/23/2024 PHQ-2 (Physician [place]) Completed 07/17/2025 Hepatitis A Vaccines Aged Out No long [...] on patient's age to complete this topic Interventions Community Resource Recommendations Community Resource Services Recommended Domains Addressed Status Status Reason/Outcome Date/Time [facility] Assistance Commission Government Benefits, Help Understanding Government Programs Financial Resource Strain In Use 07/19/2025 7:56 AM CDT [facility] Help Understanding Government Programs Financial Resource Strain In Use 07/19/2025 7:56 AM CDT [facility] Government Benefits Financial Resource Strain In Use 07/19/2025 7:56 AM CDT [facility] Prescription Assistance Financial Resource Strain In Use 07/19/2025 7:56 AM CDT [facility] [employer] Book Assistance Financial Resource Strain In Use 07/19/2025 7:56 AM CDT from Last 12 Months Medical Devices Implanted Type Area Manager Telemarketing Device Identifier Shelf Expiration Date Model / Serial / Lot [place] Suture Arthrex Dx Fibertak Needle Sterile Latex Free - [id number] Implanted:Qty: 1 on 05/26/2021 by Harley Phillips DPM at [facility] [employer] [id number] 11/16/2025 [id number] / / [id number] Cage Cage Spine Cervical Cage Cage Spine Lumbar Screw Screw Left: Knee Stimulator Stimulator Implant Description:NeurAxon InterS jade implant Decellurized Dermis Implanted:Qty: 1 on 05/26/2021 by Harley Phillips DPM at [facility] [id number] 08/07/2023 / / [id number] Implant Peroneus Longus Allosource - [id number] Implanted:Qty: 1 on 11/26/2022 by Harley Phillips DPM at [facility] Right: Ankle [employer] [id number] 10/10/2027 [id number] / / [id number] Flex Band Dynamic Matrix Implanted:Qty: 1 on 11/26/2022 by Harley Phillips DPM at [facility] Right: Ankle [id number] 08/18/2026 [id number] / [id number] / [id number] Description:SmartExposee Flexband Dynamic Matrix Implanted:Qty: 1 on 11/26/2022 by Harley Phillips DPM at [facility] Right: Ankle [id number] 08/18/2026 [id number] / [id number] / Description:[employer]elon [employer] Procedures Procedure Name Priority Date/Time Associated Diagnosis Comments OUTSIDE LAB (SCAN ORDER) 07/29/2025 OUTSIDE LAB (SCAN ORDER) 07/29/2025 OUTSIDE LAB (SCAN ORDER) 07/29/2025 POCT GLUCOSE - DOCKED DEVICE Routine 07/23/2025 11:35 AM [facility] POCT GLUCOSE - DOCKED DEVICE Routine 07/23/2025 8:03 AM [facility] COMPREHENSIVE METABOLIC PANEL Routine 07/23/2025 4:00 AM [facility] CBC, AUTO, NO DIFF Routine 07/23/2025 4: 00 AM [facility] VANCOMYCIN Routine 07/23/2025 4:00 AM [facility] C-REACTIVE PROTEIN Routine 07/23/2025 4: 00 AM [facility] POCT GLUCOSE - DOCKED DEVICE Routine 07/22/2025 7:24 PM [facility] POCT GLUCOSE - DOCKED DEVICE Routine 07/22/2025 4:17 PM [facility] POCT GLUCOSE - DOCKED DEVICE Routine 07/22/2025 10:58 AM [facility] POCT GLUCOSE - DOCKED DEVICE Routine 07/22/2025 7:54 AM [facility] COMPREHENSIVE METABOLIC PANEL Routine 07/22/2025 4:30 AM [facility] CBC W/DIFF AUTOMATED Routine 07/22/2025 4:30 AM [facility] VANCOMYCIN Routine 07/22/2025 4:30 AM [facility] C-REACTIVE PROTEIN Routine 07/22/2025 4: 30 AM [facility] POCT GLUCOSE - DOCKED DEVICE Routine 07/21/2025 9:13 PM [facility] POCT GLUCOSE - DOCKED DEVICE Routine 07/21/2025 4:18 PM [facility] POCT GLUCOSE - DOCKED DEVICE Routine 07/21/2025 11:02 AM [facility] POCT GLUCOSE - DOCKED DEVICE Routine 07/21/2025 8:14 AM [facility] HC VANCOMYCIN Routine 07/21/2025 5:25 AM [facility] HC C-REACTIVE PROTEIN Routine 07/21/2025 5:25 AM [facility] HC COMPREHENSIVE METABOLIC PANEL Routine 07/21/2025 5:25 AM [facility] HC CBC AUTO W/AUTO DIFF Routine 07/21/2025 5:25 AM [facility] POCT GLUCOSE - DOCKED DEVICE Routine 07/20/2025 7:09 PM CDT POCT GLUCOSE - DOCKED DEVICE Routine 07/20/2025 4:07 PM CDT POCT GLUCOSE - DOCKED DEVICE Routine 07/20/2025 11:16 AM CDT POCT GLUCOSE - DOCKED DEVICE Routine 07/20/2025 7:03 AM CDT HC C-REACTIVE PROTEIN Routine 07/20/2025 4:24 AM CDT HC VANCOMYCIN Routine 07/20/2025 4:24 AM CDT HC COMPREHENSIVE METABOLIC PANEL Routine 07/20/2025 4:24 AM CDT HC CBC AUTO W/AUTO DIFF Routine 07/20/2025 4:24 AM CDT POCT GLUCOSE - DOCKED DEVICE Routine 07/19/2025 6:56 PM CDT VITAMIN D, 25 OH Routine 07/19/2025 5:35 PM CDT SED RATE, ERYTHROCYTE (ESR) Routine 07/19/2025 5:35 PM CDT C-REACTIVE PROTEIN Routine 07/19/2025 5: 35 PM CDT POCT GLUCOSE - DOCKED DEVICE Routine 07/19/2025 4:03 PM CDT POCT GLUCOSE - DOCKED DEVICE Routine 07/19/2025 11:31 AM CDT CULTURE, WOUND, W/GRAM STAIN Routine 07/19/2025 10:53 AM CDT CULTURE, ANAEROBIC Routine 07/19/2025 10 :53 AM CDT POCT GLUCOSE - DOCKED DEVICE Routine 07/19/2025 10:11 AM CDT ARTHROSCOPY KNEE 07/19/2025 10:0 6 AM CDT effusion of right knee MAGNESIUM Routine 07/19/2025 4:57 AM CDT COMPREHENSIVE METABOLIC PANEL Routine 07/19/2025 4:57 AM CDT CBC W/DIFF AUTOMATED Routine 07/19/2025 4:57 AM CDT POCT GLUCOSE - DOCKED DEVICE Routine 07/18/2025 7:06 PM CDT CULTURE, BACTERIA, BLOOD STAT 07/18/2025 3:45 PM CDT CULTURE, BACTERIA, BLOOD STAT 07/18/2025 3:36 PM CDT COMPREHENSIVE METABOLIC PANEL STAT 07/18/2025 3:36 PM CDT CBC W/DIFF AUTOMATED STAT 07/18/2025 3:36 PM CDT PARTIAL THROMBOPLASTIN TIME,PTT STAT 07/18/2025 3:35 PM CDT PROTHROMBIN TIME, VENOUS STAT 07/18/2025 3:35 PM CDT LACTIC ACID STAT 07/18/2025 3:34 PM CDT CRYSTALS, BODY FLUID Routine 07/17/2025 3:04 PM CDT Effusion of right knee Acute pain of right knee CULTURE, BODY FLUID W/ GRAM STAIN Routine 07/17/2025 3:04 PM CDT Effusion of right knee Acute pain of right knee CELL COUNT W/ DIFF BODY FLUID Routine 07/17/2025 3:04 PM CDT Effusion of right knee Acute pain of right knee URIC ACID, BODY FLUID Routine 07/17/2025 3:04 PM CDT Effusion of right knee Acute pain of right knee XR KNEE RT MIN 4V Routine 07/17/2025 2:3 6 PM CDT Acute pain of right knee HEMOGLOBIN, GLYCOSYLATED Routine 09/06/2024 Uncontrolled type 2 diabetes mellitus with hyperglycemia ([facility] HHS/HCC) DIABETIC RETINOPATHY EXAM (NEGATIVE)(SCAN ORDER) Routine 06/20/2023 from Last 3 Months or Most Recently Relevant to Health Maintenance Results * OUTSIDE LAB (SCAN ORDER) (07/29/2025) Only the most recent of3 resultswithin the time period is included. 07/29/2025 us [facility] Scanned SCANNING Final Resu lt * (ABNORMAL) POCT glucose (07/23/2025 11:35 AM [facility]) Only the most recent of19 resultswithin the time period is included. GLUCOSE POC 119(H) 70 - 99 MG/DL 07/23/2025 11:42 AM [facility] 07/23/2025 11:3 5 AM [facility] Shiraz Bailey APRN POCT ORDERABLES - DEVICE Final Result [facility] [address] [place] [address], [place] [phone] * (ABNORMAL) COMPREHENSIVE METABOLIC PANEL (07/23/2025 4:00 AM [facility]) Only the most recent of6 resultswithin the time period is included. [facility] GLUCOSE 110(H) 70 - 99 MG/DL 07/23/2025 6:09 AM [facility] BUN 12 7 - 18 MG/DL 07/23/2025 6:09 AM [facility] CREATININE S/P/B 1.00 0.55 - 1.02 MG/DL 07/23/2025 6:09 AM [facility] SODIUM S/P/B 143 136 - 145 MMOL/L 07/23/2025 6:09 AM [facility] POTASSIUM S/P/B 3.7 3.5 - 5.1 MMOL/L 07/23/2025 6:09 AM [facility] CHLORIDE S/P/B 108 100 - 108 MMOL/L 07/23/2025 6:09 AM [facility] CO2 27.4 21 - 32 MMOL/L 07/23/2025 6:09 AM [facility] CALCIUM S/P/B 8.4(L) 8.5 - 10.1 MG/DL 07/23/2025 6:09 AM [facility] BILIRUBIN TOTAL S/P/B 0.3 0.2 - 1.2 MG/DL 07/23/2025 6:09 AM [facility] Comment: THIS ASSAY IS NOT RECOMMENDED FOR PATIENTS UNDERGOING TREATMENT WITH ELTROMBOPAG DUE TO THE POTENTIAL FOR FALSELY ELEVATED RESULTS. TOTAL PROTEIN S/P/B 5.4(L) 6.4 - 8.2 G/DL 07/23/2025 6:09 AM [facility] ALBUMIN S/P/B 2.7(L) 3.4 - 5.0 G/DL 07/23/2025 6:09 AM [facility] AST 13(L) 15 - 37 U/L 07/23/2025 6:09 AM [facility] ALT 18 14 - 55 U/L 07/23/2025 6:09 AM [facility] ALKALINE PHOSPHATASE S/P/B 63 50 - 136 U/L 07/23/2025 6:09 AM [facility] ANION GAP 7.6 5 - 15 MMOL/L 07/23/2025 6:09 AM [facility] BUN CREATININE RATIO 12.0 6 - 26 07/23/2025 6:09 AM [facility] A/G RATIO 1.0 1.0 - 2.0 RATIO 07/23/2025 6:09 AM [facility] GFR ESTIMATE 66(L) >90 ML/MIN/1.7 3 M2 07/23/2025 6:09 AM [facility] Comment: NOTE: eGFR is not calculated for patients <18 years of age. This is an estimated GFR calculation using the new CKD EPI creatinine equation without race and so does not require a correction factor for race. This estimated GFR should not be used for calculating drug doses. 07/23/2025 4:00 AM [facility] Shiraz Bailey APRN LABORATORY Final Re sult [facility] [address] [place] [address], * (ABNORMAL) C-REACTIVE PROTEIN (07/23/2025 4:00 AM [facility]) Only the most recent of5 resultswithin the time period is included. C-REACTIVE PROTEIN 0.90(H) <0.3 mg/dL 07/23/2025 6:09 AM [facility] 07/23/2025 4:00 AM [facility] us Patti BLAS LABORATORY Final Result [facility] [address] [place] [address], [place] [phone] * (ABNORMAL) CBC, AUTO, NO DIFF (07/23/2025 4:00 AM [facility]) WBC 4.89 4.50 - 11.00 x10'3/uL 07/23/2025 5:27 AM [facility] RBC 3.36(L) 4.20 - 5.40 x10'6/uL 07/23/2025 5:27 AM [facility] HGB 10.2(L) 12.0 - 16.0 G/DL 07/23/2025 5:27 AM [facility] HCT 30.1(L) 38.0 - 48.0 % 07/23/2025 5:27 AM [facility] MCV 89.6 81.0 - 99.0 FL 07/23/2025 5:27 AM [facility] MCH 30.4 27.0 - 31.0 PG 07/23/2025 5:27 AM [facility] MCHC 33.9 32.0 - 36.0 G/DL 07/23/2025 5:27 AM [facility] RDW 12.8 11.5 - 14.5 % 07/23/2025 5:27 AM [facility] PLT 222 130 - 400 x10'3/uL 07/23/2025 5:27 AM [facility] MPV 10.0 9.3 - 12.2 FL 07/23/2025 5:27 AM [facility] 07/23/2025 4:00 AM [facility] Shiraz Bailey BEVELING MACHINE OPERATOR LABORATORY Final Re sult Performing Organization Address [facility] de Phone Number [facility] [address] [place] [id number], [place] [phone] * Vancomycin Random Level (07/23/2025 4:00 AM [facility]) Only the most recent of4 resultswithin the time period is included. VANCOMYCIN RANDOM 24.6 MCG/ML 07/23/2025 5:55 AM [facility] Comment: NO THERAPEUTIC RANGE AVAILABLE Toxic Level: >40.0 MCG/ML 07/23/2025 4:00 AM [facility] Marttania Bailey APRN LABORATORY Final Re sult Performing Organization Address [facility] de Phone Number [facility] [address] [place] [address], [place] [phone] * (ABNORMAL) CBC W/DIFF AUTOMATED (07/22/2025 4:30 AM [facility]) Only the most recent of5 resultswithin the time period is included. WBC 5.02 4.50 - 11.00 x10'3/uL 07/22/2025 5:09 AM [facility] RBC 3.44(L) 4.20 - 5.40 x10'6/uL 07/22/2025 5:09 AM [facility] HGB 10.5(L) 12.0 - 16.0 G/DL 07/22/2025 5:09 AM [facility] HCT 31.5(L) 38.0 - 48.0 % 07/22/2025 5:09 AM [facility] MCV 91.6 81.0 - 99.0 FL 07/22/2025 5:09 AM [facility] MCH 30.5 27.0 - 31.0 PG 07/22/2025 5:09 AM [facility] MCHC 33.3 32.0 - 36.0 G/DL 07/22/2025 5:09 AM [facility] RDW 13.4 11.5 - 14.5 % 07/22/2025 5:09 AM [facility] PLT 244 130 - 400 x10'3/uL 07/22/2025 5:09 AM [facility] MPV 10.3 9.3 - 12.2 FL 07/22/2025 5:09 AM [facility] CBC COMMENT AUTOMATED RBC MORPHOLOGY AND PLATELET EVALUATION NORMAL 07/22/2025 5:09 AM [facility] NEUTROPHILS % 44.0 % 07/22/2025 5:09 AM [facility] LYMPHOCYTES % 41.8 % 07/22/2025 5:09 AM [facility] MONOCYTES % 9.0 % 07/22/2025 5:09 AM [facility] EOSINOPHILS 3.8 % 07/22/2025 5:09 AM [facility] BASOPHILS 0.8 % 07/22/2025 5:09 AM [facility] IMMATURE GRANS % 0.6 % 07/22/20 25 5:09 AM [facility] NRBC % 0.0 % 07/22/2025 5:09 AM [facility] ABS. NEUTROPHILS TOTAL 2.21 1.80 - 7.70 x10'3/uL 07/22/2025 5:09 AM [facility] ABS. LYMPHOCYTES 2.10 1.00 - 4.80 x10'3/uL 07/22/2025 5:09 AM [facility] ABS. MONOCYTES 0.45 0.24 - 0.86 x10'3/uL 07/22/2025 5:09 AM [facility] ABS. EOSINOPHILS 0.19 0.04 - 0.36 x10'3/uL 07/22/2025 5:09 AM [facility] ABS. BASOPHILS 0.04 0.01 - 0.08 x10'3/uL 07/22/2025 5:09 AM [facility] ABS. IMMATURE GRANULOCYTES 0.03 0.00 - 0.49 x10'3/uL 07/22/2025 5:09 AM [facility] ABS. NUCLEATED RBC'S 0.00 0.00 - 0.01 x10'3/uL 07/22/2025 5:09 AM [facility] 07/22/2025 4:30 AM [facility] Patti BLAS LABORATORY Final Result [facility] [address] [place] [address], [place] [phone] * SED RATE, ERYTHROCYTE (ESR) (07/19/2025 5:35 PM CDT) ESR 23 <30 MM/HR 07/19/2025 6:[address] [facility] 07/19/2025 5:35 PM CDT Ramon Doran MD LABORATORY Final Result [facility] [address] [place] [address], [place] [phone] * VITAMIN D, 25 [place] (07/19/2025 5:35 PM CDT) VITAMIN D 25 HYDROXY S/P/B 48 30 - 100 NG/ML 07/19/2025 6:[address] [facility] Comment: INTERPRETATION DEFICIENT <20 INSUFFICIENT 20-29 SUFFICIENT 30-100 07/19/2025 5:35 PM CDT Ramon Doran MD LABORATORY Final Result [facility] [address] [place] [address], [place] [phone] * CULTURE, WOUND, W/GRAM STAIN (07/19/2025 10:53 AM CDT) SPEC DESCRIPTION KNEE,RIGHT 07/19/2025 11:[address] [facility] SPECIAL REQUESTS NO SPECIAL REQUEST 07/19/2025 11:[address] [facility] GRAM STAIN RESULT RARE WHITE BLOOD CELLS SEEN 07/19/2025 10:29 PM CDT [facility] GRAM STAIN RESULT NO ORGANISMS SEEN 07/19/2025 10:29 PM CDT [facility] CULTURE RESULT NO GROWTH 3 DAYS 07/22/2025 8:11 AM [facility] WOUND STRUCTURE OF RIGHT KNEE REGION / Unknown 07/19/2025 10:53 AM CDT Ahsan Carreon DO MICROBIOLOGY - GENERAL ORDERABL ES Final Result [facility] [address] [place] [address], [place] [phone] [facility] [address] [place] [address], [place] [phone] * CULTURE, ANAEROBIC (07/19/2025 10:53 AM CDT) SPEC DESCRIPTION KNEE,RIGHT 07/19/2025 11:[address] [facility] SPECIAL REQUESTS NO SPECIAL REQUEST 07/19/2025 11:[address] [facility] CULTURE RESULT NO ANAEROBES ISOLATED AT 5 DAYS. 07/24/2025 7:05 AM [facility] WOUND STRUCTURE OF RIGHT KNEE REGION / Unknown 07/19/2025 10:53 AM CDT Ahsan Carreon DO MICROBIOLOGY - GENERAL ORDERABL ES Final Result Performing Organization Address City/[facility]/ZIP Co de Phone Number [facility] [address] [place] [address], [place] [phone] [facility] [address] [place] [address], [place] [phone] * MAGNESIUM (07/19/2025 4:57 AM CDT) MAGNESIUM 1.9 1.8 - 2.4 MG/DL 07/19/2025 6:[address] [facility] 07/19/2025 4:57 AM CDT Romie Swanson MD LABORATORY Final R esult [facility] [address] [place] [address], [place] [phone] * BLOOD CULTURE #2 (07/18/2025 3:45 PM CDT) Only the most recent of2 resultswithin the time period is included. SPEC DESCRIPTION BLOOD 07/18/20 3:[address] [facility] SPECIAL REQUESTS LAC [id number] 07/18/20 3:[address] [facility] CULTURE RESULT NO GROWTH 5 DAYS 07/24/2025 9:32 AM [facility] BLOOD SPECIMEN OBTAINED FOR BLOOD CULTURE / Unknown 07/18/2025 3:45 PM CDT 07/18/2025 3:51 PM CDT Anais Malhotra MD MICROBIOLOGY - GENERAL ORDER WILLI Final Result Performing Organization Address City/[facility]/ZIP Co de Phone Number [facility] [address] [place] [address], [place] [phone] [facility] [address] [place] [address], [place] [phone] * PARTIAL THROMBOPLASTIN TIME,PTT (07/18/2025 3:35 PM CDT) PTT 27.5 25.1 - 36.5 SEC 07/18/2025 5:[address] [facility] 07/18/2025 3:35 PM CDT us Patti BLAS LABORATORY Final Result Performing Organization Address City/[facility]/ZIP Co de Phone Number [facility] [address] [place] [address], [place] [phone] * PROTHROMBIN TIME, VENOUS (07/18/2025 3:35 PM CDT) PROTIME 11.7 9.4 - 12.5 SEC 07/18/2025 5:[address] [facility] INR 1.0 0.9 - 1.1 07/18/2025 5:[address] [facility] Comment: Recommended INR Therapeutic Goals: 2.0-3.0 Routine Therapy 2.5-3.5 Mechanical Prosthetic Valves (High Risk) 07/18/2025 3:35 PM CDT Patti BLAS LABORATORY Final Result Performing Organization Address [facility]/ZIP Co de Phone Number [facility] [address] [place] [address], [place] [phone] * LACTIC ACID - SINGLE (07/18/2025 3:34 PM CDT) LACTIC ACID VENOUS 1.8 0.4 - 2.0 MMOL/L 07/18/2025 4:[address] [facility] 07/18/2025 3:34 PM CDT Anais Malhotra MD LABORATORY Final Result Performing Organization Address [facility]/[place] Co de Phone Number [facility] [address] [place] [address], [place] [phone] * URIC ACID, BODY FLUID (07/17/2025 3:04 PM CDT) URIC ACID (FLUID) 7.9 MG/DL 07/18/2025 4:06 PM CDT [facility] Comment:REFERENCE RANGE NOT ESTABLISHED FOR THIS BODY FLUID. SOURCE KNEE,RIGHT 07/17/2025 5:[address] [facility] STRUCTURE OF RIGHT KNEE REGION / Unknown 07/17/2025 3:04 PM CDT Kyler Ocasio DOCUMENTATION SUPERVISOR BODY FLUIDS AND STOOLS O RDERABLES Final Result Performing Organization Address [facility]/ZIP Co de Phone Number [facility] [address] [place] [address], [place] [phone] [facility] [address] [place] [address], [place] [phone] * CULTURE, BODY FLUID W/ GRAM STAIN (07/17/2025 3:04 PM CDT) SPEC DESCRIPTION KNEE,RIGHT 07/17/2025 5:[address] [facility] SPECIAL REQUESTS NO SPECIAL REQUEST 07/17/2025 5:[address] [facility] GRAM STAIN RESULT MANY WHITE BLOOD CELLS SEEN 07/18/2025 12:20 PM CDT [facility] GRAM STAIN RESULT FEW GRAM POSITIVE COCCI 07/18/2025 12:20 PM CDT [facility] GRAM STAIN RESULT MODERATE GRAM POSITIVE RODS 07/18/2025 12:20 PM CDT [facility] GRAM STAIN RESULT CALLED GRAM STAIN TO AND REPEATED BACK BY DEBBIE MON AT [facility] AT [phone] DY 07/18/2025 12:20 PM CDT [facility] CULTURE RESULT NO GROWTH 5 DAYS 07/23/2025 7:11 AM [facility] STRUCTURE OF RIGHT KNEE REGION / Unknown 07/17/2025 3:04 PM CDT 07/17/2025 5:37 PM CDT Kyler Ocasio NP MICROBIOLOGY - GENERAL O RDERABLES Final Result [facility] [address] [place] [address], [place] [phone] [facility] [address] [place] [address], [place] [phone] * CRYSTALS, BODY FLUID (07/17/2025 3:04 PM CDT) SOURCE (FLUID) RIGHT KNEE FLUID 07/18/2025 4:[address] [facility] CRYSTALS (FLUID) MONOSODIUM URATE CRYSTALS 07/18/2025 5:58 PM CDT [facility] STRUCTURE OF RIGHT KNEE REGION / Unknown 07/17/2025 3:04 PM CDT Kyler Ocasio DOCUMENTATION SUPERVISOR BODY FLUIDS AND STOOLS O RDERABLES Final Result [facility] [address] [place] [address], [place] [phone] [facility] [address] [place] [address], [place] [phone] * CELL COUNT W/ DIFF BODY FLUID (07/17/2025 3:04 PM CDT) SPECIMEN TYPE RIGHT KNEE FLUID 07/17/2025 5:[address] [facility] VOLUME (FLUID) 30.0 mL 07/18/2025 1:11 PM CDT [facility] COLOR (FLUID) YELLOW 07/18/2025 1:11 PM CDT [facility] CLARITY (FLUID) TURBID 1:11 PM CDT [facility] RBC (FLUID) 2,857 CELLS/UL 07/18/2025 1:11 PM CDT [facility] Comment: The reference range and other method performance specifications have not been established for this assay on body fluids. The test result should be integrated into the clinical context for interpretation and utilized in comparison to blood concentrations of the analyte as appropriate. TOTAL NUCLEATED CELL COUNT 5,420 CELLS/UL 07/18/2025 1:11 PM CDT [facility] Comment: The reference range and other method performance specifications have not been established for this assay on body fluids. The test result should be integrated into the clinical context for interpretation and utilized in comparison to blood concentrations of the analyte as appropriate. SEGS (FLUID) 70 % 07/18/2025 1:11 PM CDT [facility] Comment: The reference range and other method performance specifications have not been established for this assay on body fluids. The test result should be integrated into the clinical context for interpretation and utilized in comparison to blood concentrations of the analyte as appropriate. LYMPHS (FLUID) 9 % 07/18/2025 1:11 PM CDT [facility] Comment: The reference range and other method performance specifications have not been established for this assay on body fluids. The test result should be integrated into the clinical context for interpretation and utilized in comparison to blood concentrations of the analyte as appropriate. OTHER MONONUCLEAR CELLS (FLD) 21 07/18/2025 1:11 PM CDT [facility] Comment: THE FOLLOWING MAY INCLUDE MONOCYTE/MACROPHAGE,PLASMA CELL,MESOTHELIAL CELL,BRONCHIAL LINING CELL,SYNOVIAL LINING CELL,VENTRICULAR LINING CELL,ENDOTHELIAL CELL,SQUAMOUS EPITHELIAL AND OTHER CELLS. The reference range and other method performance specifications have not been established for this assay on body fluids. The test result should be integrated into the clinical context for interpretation and utilized in comparison to blood concentrations of the analyte as appropriate. STRUCTURE OF RIGHT KNEE REGION / Unknown 07/17/2025 3:04 PM CDT Kyler Ocasio NP BODY FLUIDS AND STOOLS O RDERABLES Final Result [facility] [address] [place] [address], [place] [phone] [facility] [address] [place] [address], [place] [phone] * XR KNEE RT MIN 4V (07/17/2025 2:36 PM CDT) Anatomical Region Laterality Modality Knee Radiographic Ramila ging 07/17/2025 7:17 PM CDT Impressions 07/17/2025 7:19 PM CDT IMPRESSION: 1. Joint effusion. 2. Soft tissue swelling anterior to the knee joint. 3. No definite acute bony abnormality. Ordered By: KYLER OCASIO Interpreted By: Dain Batista MD, 07/17/2025 7:17 PM Narrative 07/17/2025 7:19 PM CDT Examination: XR KNEE RT MIN 4V Exam time: 07/17/2025 2:24 PM Clinical history: Knee pain. Comparison: No previous studies. Technique: 3 projections. Findings: There is effusion in the joint. There are mild degenerative changes in the knee joint involving all the compartments. There is no definite acute bony abnormality. There is soft tissue swelling suggested anterior to the knee joint. The etiology of the swelling and the effusion is indeterminate. Would correlate clinically and if further indicated consider aspiration of the joint. Procedure Note Dain Batista MD - 07/17/2025 Examination: XR KNEE RT MIN 4V Exam time: 07/17/2025 2:24 PM Clinical history: Knee pain. Comparison: No previous studies. Technique: 3 projections. Findings: There is effusion in the joint. There are mild degenerativechanges in the knee joint involving all the compartments. There is nodefinite acute bony abnormality. There is soft tissue swelling suggestedanterior to the knee joint. The etiology of the swelling and the effusionis indeterminate. Would correlate clinically and if further indicatedconsider aspiration of the joint. IMPRESSION: 1. Joint effusion. 2. Soft tissue swelling anterior to the knee joint. 3. No definite acute bony abnormality. Ordered By: KYLER OCASIO Interpreted By: Dain Batista MD, 07/17/2025 7:17 PM us Kyler Ocasio DOCUMENTATION SUPERVISOR GENERAL IMAGING Final Re sult * A1C (BACK OFFICE) (09/06/2024) [facility] A1C 7.0 % -[address] [place] 09/06/2024 Eleanor Dodge MD LABORATORY Final Re sult [facility], [address] [place] [address], [place] [phone] * DIABETIC RETINOPATHY EXAM (NEGATIVE) (06/20/2023) [facility] Scanned SCANNING Final Resu lt [facility] ONBASE from Last 3 Months or Most Recently Relevant to Health Maintenance Insurance [facility] MEDICAID Advance Directives * Full Code (Latest Code Status on File) Date Activated Date Inactivated Comments 07/24/2025 8:38 PM * Full Code Date Activated Date Inactivated Comments 07/19/2025 2:24 PM 07/23/2025 4:32 PM * Full Code Date Activated Date Inactivated Comments 07/18/2025 4:42 PM 07/19/2025 2:24 PM * Full Code Date Activated Date Inactivated Comments 11/16/2022 9:39 AM 11/16/2022 2:48 PM * Full Code Date Activated Date Inactivated Comments 04/13/2022 10:04 AM 04/13/2022 2:31 PM Care Teams Train Planner Relationship Specialty Start Date End Date Roland Rojas DO [address] [place] [address] PCP - General FAMILY PRACTICE 07/22/25
--- OUTSIDE RECORDS SUMMARY | 2025-08-01 14:19 | XMS_ITS | Encounter Summary ---
Author Organization [facility] Address [address] [place] [address] Care Team Providers Care Duplex Trimmer Name Role Phone Radha Kaminski NP Primary Care Provider [phone] Roland Rojas DO Primary Care Provider [phone] Reason for Visit * Reason Onset Date Comments Called To Cancel Office Appt. 12/17/2024 Encounter Details Date Type Department Care Team (Late st Contact Info) Description 12/17/2024 Telephone [facility] Diabetes and Endocrinology - [address] [phone] Eleanor Dodge MD [address] [place] [phone] Called To Cancel Office Appt. Social [...] Sex Assigned at Female 08/12/2020 10:34 AM CHEMIST STEROIDS Legal Sex Female 10:58 PM CHEMIST STERO[facility] Gender Identity Female 08/12/2020 10:34 AM CHEMIST STEROIDS Sexual Orientation Straight 08/12/2020 10 :34 AM CHEMIST STEROIDS documented as of this encounter Progress Notes * Mattie Fox - 12/17/2024 10:31 AM CDT Caller name: Pt, Rhonnie Call back/ext. #: [phone] MyChart: Yes- please communicate with the caller via [facility] regarding this matter Call details: Called and cancelled her appt for tomorrow at 9:40 due to other conflicts. She states that she will call back to reschedule when she gets her calendar. documented in this encounter Plan of Treatment Upcoming Encounters Date Type Department Care Team (Late st Contact Info) Description 08/05/2025 12:30 PM [facility] Appointment [facility] [address] [place] [address] Marah Witt, RN 08/06/2025 1:00 PM [facility] Office Visit [facility] Orthopedic Surgery [facility] [address] [address] [phone] [place] [address] [place] [address] 08/12/2025 10:00 AM [facility] Appointment [address] [address] Marah Witt, RN 08/19/2025 8:00 AM [facility] Appointment [facility] [address] [place] [address] Marah Witt, RN 08/26/2025 9:00 AM [facility] Appointment [facility] [address] [place] [address] Marah Witt, RN documented as of this encounter Visit Diagnoses Not on filedocumented in this encounter Additional Health Concerns Assessment Noted Time PHQ-9 Depression Total Score: 0 08/12/20 21 2:09 PM [facility] documented as of this encounter Care Teams Duplex Trimmer Relationship Specialty Start Date End Date Radha Kaminski NP [facility] [place] [phone] PCP - General NURSE PRACTITIONER 04/09/22 07/21/25 Roland Rojas DO [address] [place] [address] PCP - General FAMILY PRACTICE 07/22/25 documented as of this encounter
--- OUTSIDE RECORDS SUMMARY | 2025-08-01 14:19 | XMS_ITS | Encounter Summary ---
Author Organization [facility] Address [address] [place] [address] Care Team Providers Care Multi Mission Helicopter Aircrewman Name Role Phone Aneesh Dickens MD Primary Care Provider [phone] Radha Kaminski NP Primary Care Provider [phone] Roland Rojas DO Primary Care Provider [phone] Encounter Details Date Type Department Care Team (Late st Contact Info) Description 05/19/2021 Prep for Procedure [facility] [address] [place] [address] Harley Phillips, DPSonia [address] [place] [phone] Social History Tobacco Use Types Packs/Day [...] Sex Assigned at Female 08/12/2020 10:34 AM WRAPPER STEMMER HAND Legal Sex Female 10:58 PM WRAPPER STEMMER HAND Gender Identity Female 08/12/2020 10:34 AM WRAPPER STEMMER HAND Sexual Orientation Straight 08/12/2020 10 :34 AM WRAPPER [employer]MER HAND COVID-19 Exposure Response Date Recorded In the last month, have you been in contact with someone who was confirmed or suspected to have Coronavirus / COVID-19? No / Unsure 05/19/2021 3:46 PM CDT documented as of this encounter Plan of Treatment Upcoming Encounters Date Type Department Care Team (Late st Contact Info) Description 08/05/2025 12:30 PM WRAPPER STEMMER HAND Appointment [facility] [address] [place] [address] Marah Witt, RN 08/06/2025 1:00 PM WRAPPER STEMMER HAND Office Visit [facility] Orthopedic Surgery [facility] [address] [address] [place] [address] Kyler Ocasio, MANUFACTURING OPERATOR [address] [place] [address] 08/12/2025 10:00 AM WRAPPER STEMMER HAND Appointment [facility] [address] [place] [address] Marah Witt, RN 08/19/2025 8:00 AM WRAPPER STEMMER HAND Appointment [facility] [address] [place] [address] Marah Witt, RN 08/26/2025 9:00 AM WRAPPER STEMMER HAND Appointment [facility] [address] [place] [address] Marah Witt, RN documented as of this encounter Results * PRE-SURGICAL/PRE-PROCEDURE CORONAVIRUS (COVID 19) (05/23/2021 9:06 AM CDT) SPECIMEN SOURCE NASAL 8:58 AM CDT [facility] CORONAVIRUS SARS COV 2 PCR (RESP) NEGATIVE NEGATIVE 05/24/2021 11:44 AM CDT [facility] Comment: THE SARS-CoV-2 TEST HAS BEEN AUTHORIZED BY THE FDA UNDER AN EUA FOR USE BY AUTHORIZED LABORATORIES. PERFORMED BY NUCLEIC ACID AMPLIFICATION PCR FIRST TEST YES 05/23/2021 8:58 AM CDT [facility] EMPLOYED IN HEALTHCARE NO 05/23/2021 8:58 AM CDT [facility] SYMPTOMATIC DEFINED BY CDC NO 05/23/2021 8:58 AM CDT [facility] HOSPITALIZATION STATUS NO 05/23/2021 8:58 AM CDT [facility] PATIENT IN ICU NO 05/23/2021 8:58 AM CDT [facility] 05/23/2021 8:58 AM CDT [facility] NOT 05/23/2021 8:58 AM CDT [facility] NASAL STRUCTURE / Unknown 05/23/2021 9:06 AM CDT Harley Phillips DPM MICROBIOLOGY - GENERAL ORDERABLE S Final Result [facility] [address] [place] [address], [facility] [address] [place] [address], [place] [phone] documented in this encounter Visit Diagnoses Diagnosis Pre-op testing- Primary Preoperative examination, unspecified documented in this encounter Additional Health Concerns Infection Onset Date Last Indicated Resolved Time COVID-19 Rule Out 05/23/2021 05/23/2021 05/24/2021 11:44 AM CDT COVID-19 Rule Out 04/09/2022 04/09/2022 04/11/2022 12:05 PM CDT documented as of this encounter Care Teams Multi Mission Helicopter Aircrewman Relationship Specialty Start Date End Date Aneesh Dickens MD [address] [place] [address] PCP - General FAMILY PRACTICE 04/10/19 04/08/22 Radha Kaminski NP [address] [place] [address] [place] [phone] PCP - General NURSE PRACTITIONER 04/09/22 07/21/25 Roland Rojas DO [address] [place] [address] PCP - General FAMILY PRACTICE 07/22/25 documented as of this encounter
--- OUTSIDE RECORDS SUMMARY | 2025-08-01 14:19 | XMS_ITS | Clinical Summary ---
Author Organization [facility] Address [address] [place] [address] Phone Care Team Providers Care Bag Inspector Name Role Phone Radha Kaminski Primary Care Provider [phone] Allergies Active Allergy Reactions Criticality Noted Date Comments Prochlorperazine Other (see comments),Shortness of breath High 11/26/2016 Lockjaw Lockjaw Medications aspirin ([facility]) 81 MG EC tablet Take 81 mg by mouth daily Active buPROPion XL (WELLBUTRIN XL) 150 MG 24 hr tablet 2 Active Cholecalciferol (Vitamin D3) 1.25 MG (07529 UT) capsule Twice a week 2 Active [...] Done Comments Influenza Vaccine (#1) [address] [place] [address] Care Teams Bag Inspector Relationship Specialty Start Date End Date Radha Kaminski [facility] [place] [phone] PCP - General Family Medicine 06/21/22
--- OUTSIDE RECORDS SUMMARY | 2025-08-01 14:19 | XMS_ITS | Encounter Summary ---
Author Organization [facility] Address [address] [place] [address] Care Team Providers Care Proof Passer Name Role Phone Aneesh Dickens MD Primary Care Provider [phone] Radha Kaminski NP Primary Care Provider [phone] Roland Rojas DO Primary Care Provider [phone] Encounter Details Date Type Department Care Team (Late st Contact Info) Description 04/07/2022 Prep for Procedure [facility] [address] [place] [address] Harley Phillips, DPSonia [address] [place] [phone] Social History Tobacco Use Types Packs/Day [...] Sex Assigned at Female 08/12/2020 10:34 AM COMPUTER TESTER Legal Sex Female 10:58 PM COMPUTER TESTER Gender Identity Female 08/12/2020 10:34 AM COMPUTER TESTER Sexual Orientation Straight 08/12/2020 10 :34 AM COMPUTER TESTER COVID-19 Exposure Response Date Recorded In the last 10 days, have yo u been in contact with someone who was confirmed or suspected to have Coronavirus/COVID-19? No / Unsure 04/09/2022 12:05 PM CDT documented as of this encounter Plan of Treatment Upcoming Encounters Date Type Department Care Team (Late st Contact Info) Description 08/05/2025 12:30 PM COMPUTER TESTER Appointment [facility] [address] [place] [address] Marah Witt, RN 08/06/2025 1:00 PM COMPUTER TESTER Office Visit [facility] Medical Group Orthopedic Surgery [facility] [address] [address] [address] Kyler Ocasio, [place] [address] [place] [address] 08/12/2025 10:00 AM COMPUTER TESTER Appointment [facility] [address] [place] [address] Marah Witt, RN 08/19/2025 8:00 AM COMPUTER TESTER Appointment [facility] [address] [place] [address] Marah Witt, RN 08/26/2025 9:00 AM COMPUTER TESTER Appointment [place] [address] [place] [address] Marah Witt, RN documented as of this encounter Visit Diagnoses Diagnosis Pre-op testing- Primary Preoperative examination, unspecified documented in this encounter Additional Health Concerns Infection Onset Date Last Indicated Resolved Time COVID-19 Rule Out 04/09/2022 04/09/2022 04/11/2022 12:05 PM CDT Assessment Noted Time PHQ-9 Depression Total Score: 0 08/12/20 21 2:09 PM COMPUTER TESTER documented as of this encounter Care Teams Proof Passer Relationship Specialty Start Date End Date Aneesh Dickens MD [address] [place] [address] PCP - General FAMILY PRACTICE 04/10/19 04/08/22 Radha Kaminski NP [address] [place] [address] [place] [address] PCP - General NURSE PRACTITIONER 04/09/22 07/21/25 Roland Rojas DO [address] [place] [address] PCP - General FAMILY PRACTICE 07/22/25 documented as of this encounter
[2025-08-01 14:21] LABS: Albumin Level 3.9 g/dL (3.5-5.1); Anion Gap 9 mmol/L (4-12); Blood Urea Nitrogen 14 mg/dL (7-17); Calcium 9.1 mg/dL (8.4-10.2); Carbon Dioxide 24 mmol/L (22-30); Chloride 108 mmol/L (98-107); Estimated Glomerular Filt Rate 21; Glucose 110 mg/dL (65-110); Osmolality Calculated 293 mOsm/kg (285-295); Potassium 3.9 mmol/L (3.4-5.0); Sodium 141 mmol/L (137-145)
[2025-08-02 10:40] LABS: Parathyroid Intact 62.6 (7.5-53.5)
== END 2025-08-01 13:46 | disposition home or self-care (01) ==
PROVIDERS: PCP Family Medicine; Visit Provider Internal Medicine Nephrology
DX: N18.31 Chronic kidney disease, stage 3a (principal); E67.3 Hypervitaminosis D
CPT/HCPCS: 36415; 80069; 82306; 82570; 83970; 84156; 85027

== ENCOUNTER 2025-08-06 10:30 | Outpatient (NON) | payer OTHER, MEDICAID, SELFPAY ==
[2025-08-06 11:01] LABS: Anion Gap 11 mmol/L (4-12); Blood Urea Nitrogen 11 mg/dL (7-17); Calcium 9.1 mg/dL (8.4-10.2); Carbon Dioxide 24 mmol/L (22-30); Chloride 108 mmol/L (98-107); Estimated Glomerular Filt Rate 25; Glucose 107 mg/dL (65-110); Osmolality Calculated 295 mOsm/kg (285-295); Potassium 3.6 mmol/L (3.4-5.0); Sodium 143 mmol/L (137-145)
== END 2025-08-06 10:31 | disposition home or self-care (01) ==
LOC: CHSLAB 10:34
PROVIDERS: PCP Family Medicine; Visit Provider Orthopaedic Surgery
DX: M13.861 Other specified arthritis, right knee (principal)
CPT/HCPCS: 36415; 80048; 80202

== ENCOUNTER 2025-08-07 11:55 | Outpatient (NON) | payer OTHER, MEDICAID, SELFPAY ==
[2025-08-07 12:16] LABS: Anion Gap 11 mmol/L (4-12); Blood Urea Nitrogen 12 mg/dL (7-17); Calcium 8.9 mg/dL (8.4-10.2); Carbon Dioxide 24 mmol/L (22-30); Chloride 108 mmol/L (98-107); Estimated Glomerular Filt Rate 27; Glucose 120 mg/dL (65-110); Osmolality Calculated 296 mOsm/kg (285-295); Potassium 3.7 mmol/L (3.4-5.0); Sodium 143 mmol/L (137-145)
== END 2025-08-07 11:56 | disposition home or self-care (01) ==
LOC: CHSLAB 11:59
PROVIDERS: PCP Family Medicine; Visit Provider Orthopaedic Surgery
DX: M00.80 Arthritis due to other bacteria, unspecified joint (principal); Z79.899 Other long term (current) drug therapy
CPT/HCPCS: 80048; 80202

== ENCOUNTER 2025-08-09 12:21 | Outpatient (NON) | payer OTHER, MEDICAID, SELFPAY ==
--- OUTSIDE RECORDS SUMMARY | 2024-11-22 07:15 | XMS_ITS ---
Author Organization [facility] [employer] [facility] Address [address] [place] [address] [address] Care Team Providers Care Furnace Operator Name Role Phone Roland Rojas DO Primary Care Provider Unavail Julian Mcconnell Unavailable [phone] REASON FOR VISIT Pt r/s and no one documented it or removed this encounter Social History Sex Assigned At : Social History Observation Description Sex Assigned At Female Encounters Encounter Location Date Provider Diagnosis [facility] [employer] [address] [address] 11/22/2024 Julian Cummings Plan Of Treatment Next Appt Details Provider Name:Stacia Byrnes Axelyani luke, 11/05/2025 01:30:00 PM, [facility] [facility] [address], [facility] [address], [place], [address], Progress Notes * IZABELA PARRA GDOB:1969 (55 yo F)Acc No.[id number]:11/22/2024 Patient: Bianka IZABELA FRANCES Provider: LEOLA IQBAL :1970 A ge:54 Y S ex:Female Date:11/22/2024 Address:[address] [place], [place] [id number] Pcp:Roland Rojas DO Subjective: * Chief Complaints: * P t r/s and no one documented it or removed this encounter Billing Information: * Procedure Codes: * Electronic signature of LEOLA Rosas on 08/09/2025 at 12:26 PM GAME FARM HELPER Sign off status: Pending * Provider: [place] IQBALHNP Date: 0 11/22/2024 Generated for Dilip brown/Elen/Rachel on: 1 10/09/2024 12:26 PM GAME FARM HELPER
--- OUTSIDE RECORDS SUMMARY | 2025-08-05 07:30 | XMS_ITS ---
Author Organization [facility] [employer] Address [address] [facility] [address] [place] [address] Care Team Providers Care Infant Nanny Name Role Phone Roland Rojas DO Primary Care Provider Unavail able Julian Cummings Unavailable [phone] Allergies Allergen (clinical drug ingredient) Drug/Non Drug Allergy documented on EMR Reaction Allergy Type Onset Date Status Compazine Unknown Drug Allergy 12/21/2023 Active REASON FOR VISIT f/u adhd, bipolar d/o Medications Medication SIG (Take, Route, Frequency, Duration) Notes Start Date End Date Status oxyCODONE HCl 5 MG Tablet Oral 12/21/2023 Active Magnesium Oxide (Elemental) 400 MG Tablet Oral *Reorder from [facility] for eRx and Interaction Alerts* 12/21/2023 Active Glimepiride 2 MG Tablet Oral 12/21/2023 Active Mounjaro 5 MG/0.5ML Solution Auto-injector Subcutaneous; Duration: 28 Days Active tiZANidine HCl 4 MG Tablet Oral 12/21/2023 Active OneTouch Ultra Strip In Vitro 12/21/2023 Active Montelukast Sodium 10 MG Tablet Oral 12/21/2023 Active ICOSAPENT ETHYL 1 GRAM CAPSULE *Reorder from [facility] for eRx and Interaction Alerts* 12/21/2023 Active Rosuvastatin Calcium 40 MG Tablet Oral 12/21/2023 Active Gabapentin 300 MG Capsule Oral 12/21/2023 Active Vraylar 3 mg Capsule 1 capsule Oral once daily; Duration: 90 days 08/05/2025 Active buPROPion HCl ER (XL) 150 MG Tablet Extended Release 24 Hour 1 tablet in the morning Oral Once a day; Duration: 90 days 08/05/2025 Active Estradiol 2 MG Tablet Oral 12/21/2023 Active lamoTRIgine 100 MG Tablet 1 tablet in the morning Orally Once a day; Duration: 90 days 08/05/2025 Active Methylphenidate HCl ER 36 MG Tablet Extended Release 2 tablet every morning Oral once a day; Duration: 30 days 08/05/2025 Active Social History Sex Assigned At : Social History Observation Description Sex Assigned At Female Social History Additional Details Category Social Info Options Details Migrated Social History Migrated Social History Alcohol Intake: None 04/07/2022,Tobacco Years: Never smoker 12/21/2023 Vital Signs Blood pressure systolic 128 mm Hg 08/05/20 25 Blood pressure diastolic 78 mm Hg 025 Heart Rate 81 /min 08/05/2025 Height 67.00 in 08/05/2025 Weight 207 lbs 08/05/2025 BMI 32.42 kg/m2 08/05/2025 Height-cm 170.18 cm 08/05/2025 Weight-kg 93.89 kg 08/05/2025 Encounters Encounter Location Date Provider Diagnosis [facility] [employer] [facility] [address] [address] 08/05/2025 Julian Cummings Bipolar disorder, current episode depressed, moderate F31.32 and Attention-deficit hyperactivity disorder, combined type F90.2 Assessments Encounter Date Diagnosis (ICD Code) Assessment Notes Treatment Notes Treatment Clinical Notes Section Notes 08/05/2025 Bipolar disorder, current episode depressed, moderate (ICD-10 - F31.32) 08/05/2025 Attention-deficit hyperactivity disorder, combined type (ICD-10 - F90.2) Plan Of Treatment Medication Medication Name Sig Start Date Stop Date Notes Vraylar 3 mg Capsule 1 capsule Oral once daily; Duration: 90 days 08/05/2025 buPROPion HCl ER (XL) 150 MG Tablet Extended Release 24 Hour 1 tablet in the morning Oral Once a day; Duration: 90 days 08/05/2025 lamoTRIgine 100 MG Tablet 1 tablet in e morning Orally Once a day; Duration: 90 days 08/05/2025 Methylphenidate HCl ER 36 MG Tablet Extended Release 2 tablet every morning Oral once a day; Duration: 30 days 08/05/2025 Next Appt Details Follow Up: 3 Months, Reason: f/u bipolar d/o Provider Name:Stacia butler, 11/05/2025 01:30:00 PM, [address], [facility] [address], [place], [address], History and Physical Notes * HPI (History [...] no impairment noted Delusions: no Hallucinations: no Progress Notes * IZABELA PARRA GDOB:1969 (55 yo F)Acc No.[id number]:08/05/2025 Patient: IZABELA GUAJARDO Provider: LEOLA IQBAL :1970 A ge:55 Y S ex:Female Date:08/05/2025 Address:[address] [place] [address] Pcp:Roland Rojas DO Subjective: * Chief Complaints: * F /u adhd, bipolar d/o * HPI: H istory of Presenting Problem: Depression n o motivation, lack of self care. d epression symptoms worse around the holidays. Mood lability b ipolar d/o i rritability. ADHD O nset: years ago i rritability, poor motivation, talks excessively. P ast Medication history: duloxetine- sedation, bupropion xl, abilify. * Medical History: Problems: Attention deficit hyperactivity disorder, combined type Bipolar affective disorder, current episode depression , Medical History Verified * Surgical History: Other 09/19/1998 Hysterectomy (88140) 09/19/1999 Removal of gallbladder (59735) 09/19/2000 Any surgical history 09/19/2009 Appendectomy (99141) 09/20/1993 Knee Surgery Surgical History verified. * Social History: M igrated Social History: M igrated Social History: Alcohol Intake: None 04/07/2022,Tobacco Years: Never smoker 12/21/2023. S ocial History Verified. * Medications: T akingEstradiol 2 MG Tablet Oral OneTouch Ultra Strip In Vitro Montelukast Sodium 10 MG Tablet Oral Rosuvastatin Calcium 40 MG Tablet Oral ICOSAPENT ETHYL 1 GRAM CAPSULE , Notes to Pharmacist: *Reorder from [facility] for eRx and Interaction Alerts*Gabapentin 300 MG Capsule Oral oxyCODONE HCl 5 MG Tablet Oral Glimepiride 2 MG Tablet Oral Magnesium Oxide (Elemental) 400 MG Tablet Oral , Notes to Pharmacist: *Reorder from [facility] for eRx and Interaction Alerts*tiZANidine HCl 4 MG Tablet Oral Mounjaro 5 MG/0.5ML Solution Auto-injector Subcutaneous buPROPion HCl ER (XL) 150 MG Tablet Extended Release 24 Hour 1 tablet in the morning Oral Once a day Vraylar 3 mg Capsule 1 capsule Oral once daily lamoTRIgine 100 MG Tablet 1 tablet in the morning Orally Once a day Methylphenidate HCl ER 36 MG Tablet Extended Release 2 tablet every morning Oral once a day Medication List reviewed and reconciled with the patientTaking Estradiol 2 MG Tablet Oral Taking OneTouch Ultra Strip In Vitro Taking Montelukast Sodium 10 MG Tablet Oral Taking Rosuvastatin Calcium 40 MG Tablet Oral Taking ICOSAPENT ETHYL 1 GRAM CAPSULE , Notes to Pharmacist: *Reorder from [facility] for eRx and Interaction Alerts*Taking Gabapentin 300 MG Capsule Oral Taking oxyCODONE HCl 5 MG Tablet Oral Taking Glimepiride 2 MG Tablet Oral Taking Magnesium Oxide (Elemental) 400 MG Tablet Oral , Notes to Pharmacist: *Reorder from [facility] for eRx and Interaction Alerts*Taking tiZANidine HCl 4 MG Tablet Oral Taking Mounjaro 5 MG/0.5ML Solution Auto-injector Subcutaneous Taking buPROPion HCl ER (XL) 150 MG Tablet Extended Release 24 Hour 1 tablet in the morning Oral Once a day Taking Vraylar 3 mg Capsule 1 capsule Oral once daily Taking lamoTRIgine 100 MG Tablet 1 tablet in the morning Orally Once a day Taking Methylphenidate HCl ER 36 MG Tablet Extended Release 2 tablet every morning Oral once a day Medication List reviewed and reconciled with the patient * Allergies: C ompazine: Allergy - Onset Date 12/21/2023yesAllergies Verified. Objective: * Vitals: B P:128/78mm Hg, HR:81/min, Wt:207lbs, Wt-k.89 kg, Ht: 67.00 in, Ht-cm: 170.18 cm, BMI:32.42Index, Body Surface Area: 2.1. * Examination: P sychiatry: Appearance: w ell-groomed, [...] process: i ntact. Assessment: * Assessment: 1. B ipolar disorder, current episode depressed, moderate - F31.32 (Primary) 2 . A ttention-deficit hyperactivity disorder, combined type - F90.2 Plan: * Treatment: 2. A ttention-deficit hyperactivity disorder, combined type Refill Methylphenidate HCl ER Tablet Extended Release, 36 MG, 2 tablet every morning, Oral, once a day, 30 days, 60 Tablet, Refills 0. * Procedure Codes: 1 036F TOBACCO NON-USER * Follow Up: 3 Months (Reason: f/u bipolar d/o) Billing Information: * Visit Code: 28259 OFFICE OUTPATIENT VISIT 25 MINUTES DETAILED HISTORY AND EXAM/MODERATE MEDICAL DECISION MAKING. * Procedure Codes: 1036F TOBACCO NON-USER. * Electronic signature of LEOLA Rosas on 08/09/2025 at 12:26 PM COMMERCIAL MANAGER Sign off status: Pending * Provider: LEOLA IQBAL Date: 10/05/2024 Generated for Dilip brown/Elen/Rachel on: 10/09/2024 12:26 PM COMMERCIAL MANAGER
--- OUTSIDE RECORDS SUMMARY | 2025-08-06 13:00 | XMS_ITS | Encounter Summary ---
Author Organization [facility] Address [address] [place] [address] Care Team Providers Care Supervisor Poultry Processing Name Role Phone Roland Rojas DO Primary Care Provider [phone] Reason for Visit * Reason Comments Postop Followup Right Knee Arthrosco py with Debridement and Lavage 07/19/25 * Consultation/Treatment (Routine) - Authorized Specialty Diagnoses / Procedures Referred By Adebayo sierra Referred To Contact ORTHOPAEDICS SURGERY Diagnoses right knee pain Procedures OFFICE/OUTPATIENT NEW LOW MDM 30-44 MINUTES OFFICE/OUTPATIENT NEW LOW MDM 30-44 MINUTES NEW PATIENT Referral, Self [facility] Medical [facility] Orthopedic Surgery [facility] [address] [employer] [address] [place] [address] Phone: tel: fax: Referral ID Status Reason Start Date Expiration Date Visits Requested Visits Authorized [id number] Authorized Consultatio n 07/16/2025 07/24/2026 10 10 Encounter Details Date Type Department Care Team (Late st Contact Info) Description 08/06/2025 1:00 PM MANAGER PRIMARY CARE Office Visit [facility] Orthopedic Surgery [facility] [address] [place] [address] [place] [address] [address] Postop Followup (Right Knee Arthroscopy with Debridement and Lavage 07/19/25) Social History Tobacco Use Types Packs/Day Years [...] any time in the past 12 m [facility], were you homeless or living in a half-way (including now)? No 07/18/2025 [facility] Utilities Answer Date Recorded In the past 12 months has th e electric, gas, oil, or water company threatened to shut off services in your home? No 07/18/2025 Comments No Sex and Gender Information Value Date Recorded Sex Assigned at Female 08/12/2020 10:34 AM MANAGER PRIMARY CARE Legal Sex Female 10:58 PM MANAGER PRIMARY CARE Gender Identity Female 08/12/2020 10:34 AM MANAGER PRIMARY CARE Sexual Orientation Straight 08/12/2020 10 :34 AM MANAGER PRIMARY CARE documented as of this encounter Last Filed Vital Signs Vital Sign Reading Time Taken Comments Blood Pressure 128/62 08/06/2025 1:07 PM MANAGER PRIMARY CARE Pulse 84 08/06/2025 1:07 PM MANAGER PRIMARY CARE Temperature 36.7 C (98 F) 08/06/2025 1:07 PM MANAGER PRIMARY CARE Respiratory Rate - - Oxygen Saturation 100% 08/06/2025 1:07 PM MANAGER PRIMARY CARE Inhaled Oxygen Concentration - - Weight 88.5 kg (195 lb 3.2 oz) 08/06/2025 1:07 P M MANAGER PRIMARY CARE Height 170.2 cm (5' 7) 08/06/2025 1:07 PM MANAGER PRIMARY CARE Body Mass Index 30.57 08/06/2025 1:07 PM MANAGER PRIMARY CARE documented in this encounter Functional Status * Are you deaf or do you have serious difficulty hearing Answer Date of Assessment Author Status No 07/18/2025 6:09 PM Jason Mclean R N Active * Are you blind or do you have serious difficulty seeing, even when wearing glasses? Answer Date of Assessment Author Status No 07/18/2025 6:09 PM Jason Mclean R N Active * Do you have serious difficulty walking or climbing stairs? Answer Date of Assessment Author Status No 07/18/2025 6:09 PM Jason Mclean R N Active * Do you have [...] 6:09 PM CDJason Rivas R N Active documented as of this encounter Mental Status * Because of a physical, mental, or emotional condition, do you have serious difficulty concentrating, remembering, or making decisions? Answer Entry Date Author Status No 07/18/2025 6:09 PM CDT Jason Hays R N Active documented in this encounter Progress Notes * Arleen Young, [place] - 08/06/2025 1:00 PM CST Images from the original note were not included. Office Visit Reason for Visit: Postop Followup (Right Knee Arthroscopy with Debridement and Lavage 07/19/25) History of Present Illness: 55-year female here for postop follow-up after arthroscopic irrigation and debridement of right knee. Overall doing well in regards to pain. She is ambulating without difficulty. Still has some medial sided pain but no warmth or erythema. She is here for suture removal. She is getting vancomycin dosed by pharmacy. Vitals: Filed Vitals: 08/06/25 1307 BP: 128/62 Pulse: 84 Temp: 98 ??F (36.7 ??C) TempSrc: Temporal SpO2: 100% Weight: 88.5 kg (195 lb 3.2 oz) Height: 1.702 m (5' 7) Physical Exam: Alert and oriented, no distress. Exam of the right knee shows 2 clean and dry portal incisions. Sutures were removed today. No drainage from the sites. Mild healing erythema. No appreciable effusion. Active range of motion full extension to 125 degrees of flexion without irritability. XR KNEE RT MIN 4V Narrative: Examination: XR KNEE RT MIN 4V Exam [...] further indicated consider aspiration of the joint. Impression: IMPRESSION: 1. Joint effusion. 2. Soft tissue swelling anterior to the knee joint. 3. No definite acute bony abnormality. Ordered By: ARLEEN LAWRENCEEL HANNAH Interpreted By: Dain Batista MD, 07/17/2025 7:17 PM Assessment: Status post arthroscopy right knee Gout Septic arthritis right knee Plan: 55-year-old female 2 weeks status post arthroscopic irrigation and debridement of her right knee. Overall doing well in regards to pain and mobility. She will continue to have vancomycin dosed by pharmacy with daily creatinine checks. Sutures were removed today without difficulty. She will follow-up in 2 weeks for recheck. Addendum: Spoke with Dr. Carreon regarding neck toxicity and recommended infectious disease consult.Order placed. Summary: Niles was seen today for postop followup. Diagnoses and all orders for this visit: Status post arthroscopy of right knee Acute gout of right knee, unspecified cause Pyogenic arthritis of right knee joint, due to unspecified organism ([facility]) Medications: Current Outpatient Medications: allopurinol (ZYLOPRIM) 100 MG tablet, Take 1 tablet (100 mg total) by mouth daily for 30 days. Indications: gout, Disp: 30 tablet, Rfl: 0 aspirin 81 MG tablet, Take 1 tablet by mouth nightly at bedtime. Indications: heart, Disp: , Rfl: B-D 3CC LUER-KWAKU SYR 25GX1 25G X 1 3 ML Misc, USE DIRECTED FOR INJECTIONS, Disp: , Rfl: Blood Glucose Monitoring Suppl w/Device Kit, Use to test blood sugars three times daily, Disp: 1 kit, Rfl: 0 buPROPion XL (WELLBUTRIN XL) 150 MG 24 hr tablet, Take 1 tablet by mouth daily with lunch. Indications: mood, Disp: , Rfl: cyanocobalamin (B-12) 1000 MCG/ML injection, Inject 1 mL into the muscle every 30 (thirty) days. Indications: supplement Takes on Saturdays, Disp: , Rfl: cyclobenzaprine (FLEXERIL) 10 MG tablet, Take 1 tablet by mouth 3 (three) times daily as needed. Indications: muscle spasm, Disp: , Rfl: estrogens, conjugated, (PREMARIN) 1.25 MG tablet, Take 1 tablet by mouth daily. Indications: supplement, Disp: , Rfl: fluticasone propionate 50 MCG/ACT nasal spray, 1 spray by Each Nostril route 2 (two) times daily. Indications: sinus, Disp: , Rfl: furosemide (LASIX) 20 MG tablet, Take 1 tablet by mouth as needed. Indications: diuretic, Disp: , Rfl: gabapentin (NEURONTIN) 300 MG capsule, Take 1 capsule by mouth daily with lunch. Indications: pain,Disp: , Rfl: gabapentin (NEURONTIN) 600 MG tablet, Take 1 tablet by mouth nightly at bedtime. Indications: pain,Disp: , Rfl: heparin lock flush 10 UNIT/ML injection, Inject 5 mLs into the vein daily. Indications: line maint,Disp: , Rfl: icosapent ethyl 1 G capsule, Take 2 capsules by mouth 2 (two) times daily. Indications: fish oil Takes at noon and in the evening., Disp: , Rfl: lamoTRIgine (LAMICTAL) 100 MG tablet, Take 1 tablet by mouth daily with lunch. Indications: mood, Disp: , Rfl: levothyroxine (SYNTHROID) 50 MCG tablet, Take 1 tablet by mouth every morning. Indications: thyroidTries to take around 4-6 AM before meals., Disp: , Rfl: magnesium oxide (MAG-OX) 400 (240 Mg) MG tablet, Take 1 tablet by mouth every evening. Indications:supplement, Disp: , Rfl: methylphenidate CR (CONCERTA) 36 MG tablet, Take 1 tablet by mouth every morning. Indications: attention, Disp: , Rfl: minoxidil (LONITEN) 2.5 MG tablet, Take 0.5 tablets (1.25 mg total) by mouth daily. Indications: hair, Disp: , Rfl: montelukast 10 MG tablet, Take 1 tablet by mouth nightly at bedtime. Indications: allergy, Disp: , Rfl: MOUNJARO 7.5 MG/0.5ML injection, Inject 7.5 mg into the skin once a week. Indications: Diabetes Takes on Saturdays, Disp: , Rfl: normal saline 0.9 % injection, Inject 5-10 mLs into the vein see administration instructions. 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 Indications: Acute Pain < 7 Day Supply, Disp: 20 tablet,Rfl: 0 predniSONE (DELTASONE) 5 mg tablet, Take 1 tablet by mouth daily. Indications: steroid, Disp: , Rfl: REPATHA 140 MG/ML injection (SYRINGE), 1 mL every 14 (fourteen) days. Indications: cholesterol, Disp: , Rfl: rimegepant (NURTEC) 75 MG disintegrating tablet, Take 1 tablet by mouth daily as needed for Migraine (If needed, takes at noon.). Indications: migraine, Disp: , Rfl: rosuvastatin (CRESTOR) 40 MG tablet, Take 1 tablet by mouth nightly at bedtime. Indications: cholesterol, Disp: , Rfl: sodium chloride 0.9 % SOLN 500 mL with vancomycin 1 g SOLR 1,750 mg, Inject 1,750 mg into the vein daily for 21 days. Indications: septic joint, Disp: 21 vial, Rfl: 0 topiramate (TOPAMAX) 25 MG tablet, Take 1 tablet by mouth daily. Indications: migraine, Disp: , Rfl: VANCOMYCIN HCL IN NACL IV, Inject 1,750 mg into the vein daily. Indications: Septic Arthritis of Right Knee, Disp: , Rfl: VRAYLAR 3 MG capsule, Take 1 capsule by mouth daily with lunch. Indications: mood, Disp: , Rfl: ARLEEN YOUNG NP 08/06/2025 GER PRIMARY CARE GER PRIMARY CARE documented in this encounter Plan of Treatment Upcoming Encounters Date Type Department Care Team (Late st Contact Info) Description 08/12/2025 12:00 PM MANAGER PRIMARY CARE Appointment [address] [address] Marah Witt, RN 08/19/2025 8:00 AM MANAGER PRIMARY CARE Appointment [place] [facility] [address] [place] [address] Marah Witt, RN 08/21/2025 2:40 PM MANAGER PRIMARY CARE Office Visit [facility] Medical Group Orthopedic Surgery [facility] [address] [place] [address] Arleen Young, [employer] [address] [place] [address] 08/26/2025 9:00 AM MANAGER PRIMARY CARE Appointment [place] [address] [place] [address] Marah Witt, RN 09/02/2025 2:00 PM MANAGER PRIMARY CARE Appointment [place] [address] [place] [address] Marah Witt, RN 09/09/2025 11:00 AM MANAGER PRIMARY CARE Appointment [place] [address] [place] [address] Marah Witt, RN documented as of this encounter Visit Diagnoses Diagnosis Status post arthroscopy of right knee- Primary Other postprocedural status Acute gout of right knee, unspecified cause Pyogenic arthritis of right knee joint, due to unspecified organism ([facility]) documented in this encounter Additional Health Concerns Assessment Noted Time PHQ-9 Depression Total Score: 0 07/17/20 2:34 PM CDT documented as of this encounter Care Teams Supervisor Poultry Processing Relationship Specialty Start Date End Date Roland Rojas DO [address] [place] [address] PCP - General FAMILY PRACTICE 07/22/25 documented as of this encounter
--- OUTSIDE RECORDS SUMMARY | 2025-08-09 11:45 | XMS_ITS | Encounter Summary ---
Author Organization [facility] Address [address] [place] [address] Care Team Providers Care Electrical Control Assembler Name Role Phone Roland Rojas DO Primary Care Provider [phone] Reason for Visit * Auth/Cert (Routine) Specialty Diagnoses / Procedures Referred By Adebayo t Referred To Contact Home Health Services Referral ID Status Reason Start Date Expiration Date Visits Re quested Visits Authorized [id number] 1 1 Encounter Details Date Type Department Care Team (Late st Contact Info) Description 08/09/2025 11:45 AM RANGE RIDER Home Care Visit [facility] Home Care [facility] [address] [place] [address] Marah Witt, RN SN HOME VISIT Social History Tobacco Use Types Packs/Day Years [...] any time in the past 12 m [facility], were you homeless or living in a fci (including now)? No 07/18/2025 [facility] Utilities Answer Date Recorded In the past 12 months has th e electric, gas, oil, or water company threatened to shut off services in your home? No 07/18/2025 Comments No Sex and Gender Information Value Date Recorded Sex Assigned at Female 08/12/2020 10:34 AM RANGE RIDER Legal Sex Female 10:58 PM RANGE RIDER Gender Identity Female 08/12/2020 10:34 AM RANGE RIDER Sexual Orientation Straight 08/12/2020 10 :34 AM RANGE RIDER documented as of this encounter Functional Status [...] CDT Jason Hays R N Active * Do you have serious difficulty walking or climbing stairs? Answer Date of Assessment Author Status No 07/18/2025 6:09 PM CDT Jason Hays R N Active * Do you have [...] CDT Jason Hays R N Active documented as of this encounter Mental Status * Because of a physical, mental, or emotional condition, do you have serious difficulty concentrating, remembering, or making decisions? Answer Entry Date Author Status No 07/18/2025 6:09 PM CDJason Rivas R N Active documented in this encounter Plan of Treatment Upcoming Encounters Date Type Department Care Team (Late st Contact Info) Description 08/12/2025 12:00 PM RANGE RIDER Appointment [facility] [address] [place] [address] Marah Witt, RN 08/19/2025 8:00 AM RANGE RIDER Appointment [facility] Care [facility] [address] [place] [address] Marah Witt, RN 08/21/2025 2:40 PM RANGE RIDER Office Visit [facility] Medical [facility] Orthopedic Surgery [facility] [address] [address] [place] [address] Kyler Ocasio, [place] [address] [place] [address] 08/26/2025 9:00 AM RANGE RIDER Appointment [facility] [address] [place] [address] Marah Witt, RN 09/02/2025 2:00 PM RANGE RIDER Appointment [facility] [address] [place] [address] Marah Witt, RN 09/09/2025 11:00 AM RANGE RIDER Appointment [facility] [address] [place] [address] Marah Witt, RN documented as of this encounter Visit Diagnoses Not on filedocumented in this encounter Additional Health Concerns Assessment Noted Time PHQ-9 Depression Total Score: 0 07/17/20 25 2:34 PM CDT documented as of this encounter Home Health Visit - Care Plan Visit Details Visit Type -SN - Home Visit Discipline -Detention Problems Problem Description Start Date Status Goals Interve ntions Pain/Physical Discomfort Disciplines: SN Patient is experiencing pain/physical discomfort. 07/24/2025 Active 1 goal linked to scheduled/document ed intervention 1 goal intervention scheduled/document ed in this visit Collaboration of Care Disciplines: SN Collaboration for safe care. 07/24/2025 Active 2 goals linked to scheduled/document ed interventions 5 goal interventions scheduled/document ed in this visit Fall Precautions Disciplines: SN Patient at risk for falls or has had recent fall occurrence(s). 07/24/2025 Active 1 goal linked to scheduled/document ed intervention 1 goal intervention scheduled/document ed in this visit Learning/Teac ai Needs - IV Therapy Disciplines: SN Teaching and learning needs for performing home IV therapy. 07/24/2025 Active 1 goal linked to scheduled/document ed intervention 1 problem intervention scheduled/document ed in this visit 4 goal interventions scheduled/document ed in this visit Postsurgical Care - Ortho Disciplines: SN Care following right knee(s) surgery. 07/24/2025 Active 1 goal linked to scheduled/document ed intervention 2 goal interventions scheduled/document ed in this visit Learning/Teac ai Needs - Diabetes Disciplines: SN Learning and teaching needs associated with diagnosis. 07/24/2025 Active 1 goal linked to scheduled/document ed intervention 2 goal interventions scheduled/document ed in this visit Goals Goal Associated Problem Outcome Goal Met? Visit Notes Patient's pain/physical discomfort will be reduced to the level of patient's stated goal. Description: - Patient's pain/physical discomfort will be reduced to the level of patient's stated goal by 09/03/25. - Patient's desired pain goal is 5. - Patient will verbalize understanding of the pain management plan by 08/10/25. Pain/Physical Discomfort No Patient safety met through collaboration for safe care. Description: Clinicians will communicate patient care and safety needs during episode of care through 09/03/25. Collaboration of Care No Patient verbalizes understanding of medication regimen Description: Patient will verbalize understanding of medication regimen by 09/03/25. Collaboration of Care No Patient/caregiver maintains a safe environment. Description: Patient/caregiver will demonstrate ability to maintain a safe environment without injuries/falls by 09/03/25. Patient will verbalize measures to promote safety by 08/10/25 Fall Precautions No Patient/caregiver demonstrates ability to safely perform and/or administer IV flush Description: - Patient will demonstrate ability to safely perform administration of IV medications by 09/03/25. - Patient will demonstrate ability to correctly perform flushing technique by 09/03/25. Learning/Teaching Needs - IV Therapy No Patient/caregiver has adequate knowledge of follow-up care. Patient/caregiver understands potential complications, prevention, symptom management, and when to report adverse events. Description: - Patient will have adequate knowledge of follow-up care as evidenced by the ability to describe risk factors and required lifestyle adaptations including compliance with meds, diet, and rehabilitation program as appropriate through . - Patient verbalizes understanding of potential complications, prevention, symptom management, and when to report adverse events to home care agency and/or physician by 09/03/25. Postsurgical Care - Ortho No Patient demonstrates adequate knowledge of diabetes monitoring and treatment. Description: - Patient/caregiver will demonstrate adequate knowledge of diabetes as evidenced by the ability to perform blood sugar monitoring; care of feet, skin, and eyes; signs/symptoms of altered glycemic status states; and their treatment by 08/10/25. - Goal blood sugars to remain WNL through 09/03/25. Learning/Teaching Needs - Diabetes No Interventions Intervention Associated Problem/Goal Status Variance Visit Notes Assess Pain Description: -Perform comprehensive pain assessment of patient's level of pain using Numeric pain scale and assess effectiveness of current pain regimen. -Current medical management for pain is oxy. If no changes or concerns check complete (see Pain Assessment). Problem:Pain/Physical Discomfort Goal:Patient's pain/physical discomfort will be reduced to the level of patient's stated goal. Scheduled Assess Vital Signs Description: Obtain and record vital signs. Report to MD. BP: systolic blood pressure <90 or >160; diastolic blood pressure <60 or >90. Temperature: >100.5 F. Pulse: <60 or >100 bpm. Respiratory Rate: <12 or >28 /min. SPO2: <90%. May check SPO2 as needed for ini tial assessment or dyspnea. Problem:Collaboration of Care Goal:Patient safety met through collaboration for safe care. Scheduled Insurance Verification Description: Verify with patient/caregiver current insurance coverage. Problem:Collaboration of Care Goal:Patient safety met through collaboration for safe care. Scheduled Plan for Next Visit Description: Next visit plan summation Problem:Collaboration of Care Goal:Patient safety met through collaboration for safe care. Scheduled Medication Reconciliation Description: - Review and identify unnecessary therapeutic duplication. Each clinician to perform bottle check weekly on their first visit of the week. - Patient to take medications from pill bottles set up by Patient Problem:Collaboration of Care Goal:Patient verbalizes understanding of medication regimen Scheduled Medication Management Description: - Assess Patient ability to manage medications. Provide detailed instruction on proper administration and medication management. - Instruct Patient in medication administration, purpose, dosages, preparation, scheduling, side effects, food/drug & drug/drug interactions, storage, and potential complications. Problem:Collaboration of Care Goal:Patient verbalizes understanding of medication regimen Scheduled Assess Appropriateness for Homecare Description: Assess Patient's ability to remain safe in current environment. Problem:Fall Precautions Goal:Patient/caregiver maintains a safe environment. Scheduled Lab Collection Description: Lab draw for CBC, BMP, ESR, CRP and Vancomycin Trough on Mondays for diagnosis of Septic Arthritis. Results to Dr. Ahsan Carreon and IV Care [phone]. Pharmacist Annika Russ - Direct number to call is , if needed. ALL LABS TO BE DROPPED AT [facility] IN [place]. Problem:Learning/Teaching Needs - IV Therapy Goal:Patient/caregiver demonstrates ability to safely perform and/or administer IV flush Scheduled IV Administration Description: Patient to gather supplies and administer IV medication as ordered including saline and heparin flushes as ordered or per protocol. Problem:Learning/Teaching Needs - IV Therapy Goal:Patient/caregiver demonstrates ability to safely perform and/or administer IV flush Scheduled Instruct IV Supplies Description: Instruct Patient in how to gather supplies, prepare supplies, administer IV medication, and disconnect IV medication. Problem:Learning/Teaching Needs - IV Therapy Goal:Patient/caregiver demonstrates ability to safely perform and/or administer IV flush Scheduled IV Dressing Change Description: - Skilled nurse to change IV site dressing per protocol. - PICC dressing to be changed 24 hours after insertion, then weekly and as needed for soiled/loosened dressing. Problem:Learning/Teaching Needs - IV Therapy Goal:Patient/caregiver demonstrates ability to safely perform and/or administer IV flush Scheduled Lab Collection Description: Lab draw for BMP and Vancomycin Trough on 08/09/25 for diagnosis of Septic Arthritis. Results to Dr. Ahsan Carreon and IV Care . Pharmacist Annika Russ - Direct number to call is , if needed. ALL LABS TO BE DROPPED AT [facility] IN [place]. Problem:Learning/Teaching Needs - IV Therapy Scheduled Incision Site Care Description: - Instruct Patient on incision care to right knee, signs/symptoms of infection, or complications including fever, increasing pain and swelling, drainage, redness. - Dressing change at surgeon office at follow up appointment in two weeks. - Additional protocol: keep dry. Problem:Postsurgical Care - Ortho Goal:Patient/caregiver has adequate knowledge of follow-up care. Patient/caregiver understands potential complications, prevention, symptom management, and when to report adverse events. Scheduled Immobility Complications Description: - Instruct Patient on strategies to prevent complications of immobility and measures to improve/maintain mobility and safety. - Reinforce correct usage of assistive equipment as indicated. Problem:Postsurgical Care - Ortho Goal:Patient/caregiver has adequate knowledge of follow-up care. Patient/caregiver understands potential complications, prevention, symptom management, and when to report adverse events. Scheduled Instruct Diabetes Description: Instruct Patient in disease process: Chronic condition where body does not make enough insulin; Type 1 or Type 2; long-term effects on eyes, kidneys, and blood vessels. Problem:Learning/Teaching Needs - Diabetes Goal:Patient demonstrates adequate knowledge of diabetes monitoring and treatment. Scheduled Blood Glucose Monitoring Description: - Patient to perform blood sugar testing and record in daily log. Instruct to notify physician shear operator automatic of fasting blood sugar if <70mg/dl or >300mg/dl for 2 consecutive readings or with any hypoglycemic episode. - Instruct Patient in target ranges of 90 -130 before meals and less than 180 one to two hours after meals. - SN to instruct Patient on how to perform blood sugar monitoring using patient's meter, how often and when, and safe disposal of needles and testing equipment. - Check that glucometer is operational, strips are not /stored properly. Arrange for new meter as needed. QC testing done. Problem:Learning/Teaching Needs - Diabetes Goal:Patient demonstrates adequate knowledge of diabetes monitoring and treatment. Scheduled documented in this encounter Care Teams Electrical Control Assembler Relationship Specialty Start Date End Date Roland Rojas DO [address] [place] [address] PCP - General FAMILY PRACTICE 07/22/25 documented as of this encounter
--- OUTSIDE RECORDS SUMMARY | 2025-08-09 12:25 | XMS_ITS | Encounter Summary ---
Author Organization [facility] Address [address] [place] [address] Care Team Providers Care Zone Manager Name Role Phone Radha Kaminski MYRON-TITLE CLERK AUTOMOBILE Primary Care Provider [phone] Harmony Mcrae MD Unavailable Encounter Details Date Type Department Care Team (Late st Contact Info) Description 06/20/2023 Lab Requisition [facility] - DermPath Lab [address] [place] [address] Andrzej Aguilar MD [address] [place] [address] Social History Tobacco Use Types Packs/Day Years Used Date Smoking Tobacco: Never Smokeless Tobacco: Never Alcohol Use Standard Drinks/Week Comments Never 0 (1 standard drink = 0.6 oz pur e alcohol) Comments Unknown Sex and Gender Information Value Date Recorded Sex Assigned at Not on file Legal Sex Female 5:06 PM BARREL ASSEMBLER Gender Identity Not on file Sexual Orientation Not on file documented as of this encounter Plan of Treatment Not on file documented as of this encounter Procedures Procedure Name Priority Date/Time Associated Diagnosis Comments DERMATOPATHOLOGY Routine 06/20/2023 12:0 0 AM CDT documented in this encounter Results * DERMATOPATHOLOGY (06/20/2023 12:00 AM CDT) Case Report Dermatopathology Report Case: [id number] Authorizing Provider: Andrzej Aguilar MD Collected: 06/20/2023 [...] by the Dermatopathology Laboratory at [facility], directed by Dr. Jean-Pierre Miller. These tests need not be, and therefore are not, approved by the [place] Food and Drug Administration. The tests are used for clinical purposes. Billing Codes Specimen Charges Stain Charges 89187 1 42287 1 4:35 PM CDT DERMATOPATHOLOGY LABORATORY Embedded Images 4:35 PM CDT DERMATOPATHOLOGY LABORATORY Pathology/Cytolog y TISSUE SPECIMEN FROM SKIN / Unknown 06/20/2023 06/21/2023 6:10 AM CDT us Andrzej Aguilar MD LAB - PATHOLOGY/CYTOLOGY ORDERAB LES Final Result DERMATOPATHOLOGY LABORATORY [facility] - Department of Dermatology [facility] [address] [phone] documented in this encounter Visit Diagnoses Not on filedocumented in this encounter Care Teams Zone Manager Relationship Specialty Start Date End Date Radha Kaminski APRN-TITLE CLERK AUTOMOBILE [address] [facility] [address] [place] [id number] PCP - General Nurse Practitioner Family 12/03/21 [place] [id number] [place] [address] [place] [id number] Rheumatology 12/03/21 documented as of this encounter
--- OUTSIDE RECORDS SUMMARY | 2025-08-09 12:26 | XMS_ITS | Data Portability ---
Author Organization [facility] OFFICE Address [address] [place] [address] Assessment Encounter Date Assessment Date Assessment LastModified [...] and medical follow-up as noted. Not available 02/03/2022 11:19:05 03/03/2022 03/03/2022 Discussed with patient findings, diagnosis, and prognosis. Discussed evaluation and treatment options including risks and benefits with patient, and patient expressed understanding. The following interventions were recommended: heart healthy low-fat, low-sodium diet, continue regular exercise,maintain appropriate weight, continue current medications, and medical follow-up as noted. [email or web address] Not available 03/03/2022 17:54:51 05/05/2022 05/05/2022 Discussed with patient findings, diagnosis, and prognosis. Discussed evaluation and treatment options including risks and benefits with patient, and patient expressed understanding. The following interventions were recommended: heart healthy low-fat, low-sodium diet, continue regular exercise,maintain appropriate weight, continue current medications, and medical follow-up as noted. [email or web address] Not available 05/05/2022 15:03:06 10/27/2022 10/27/2022 Discussed with patient findings, diagnosis, and prognosis. Discussed evaluation and treatment options including risks and benefits with patient, and patient expressed understanding. The following interventions were recommended: heart healthy low-fat, low-sodium diet, continue regular exercise,maintain appropriate weight, continue current medications, and medical follow-up as noted. [email or web address] Not available 10/27/2022 12:40:07 01/05/2023 01/05/2023 Discussed with patient findings, diagnosis, and prognosis. Discussed evaluation and treatment options including risks and benefits with patient, and patient expressed understanding. The following interventions were recommended: heart healthy low-fat, low-sodium diet, continue regular exercise,maintain appropriate weight, continue current medications, and medical follow-up as noted. [email or web address] Not available 01/05/2023 14:29:08 Plan of Treatment Reminders Order Date Submit Date Provider Last Modified By Organization Details Last Modified Time Details Appointments None recorded. Lab None recorded. Referral None recorded. Procedures None recorded. Surgeries None recorded. Imaging None recorded. Medication Orders rosuvastati n 20 mg tablet 2021 [employer] [facility], [address] [place] [address], [address], 17:57:13 magnesium oxide 400 mg (241.3 mg magnesium) tablet 2021 022 [email or web address] [employer] [facility], [address] [place] [address], [address], 3 11:14:53 atorvastati n 80 mg tablet 2021 022 [employer] [facility], [address] [place] [address], [address], 17:40:55 icosapent ethyl 1 gram capsule 2021 022 [employer] [facility], [address] [place] [address], [address], 11:47:50 Patient TargetsNo targets recorded. Patient Instructions Encounter Date Encounter Id Patient Instructions Last Modified By Organization Details Last Modified Time 02/03/2022 [id number] dizziness: care instructions [email or web address] Not available 02/03/2022 11:47:45 leg and ankle edema: care instructions [email or web address] Not available 02/03/2022 11:47:46 high blood pressure: care instructions [email or web address] Not available 02/03/2022 11:47:45 learning about high blood pressure [email or web address] Not available 02/03/2022 11:47:46 aortic valve regurgitation: care instructions [email or web address] Not available 02/03/2022 11:47:45 03/03/2022 [id number] leg and ankle edema: care instructions [email or web address] Not available 03/03/2022 17:57:11 dizziness: care instructions [email or web address] Not available 03/03/2022 17:57:11 high blood pressure: care instructions [email or web address] Not available 03/03/2022 17:57:11 learning about high blood pressure [email or web address] Not available 03/03/2022 17:57:11 aortic valve regurgitation: care instructions [email or web address] Not available 03/03/2022 17:57:11 05/05/2022 [id number] leg and ankle edema: care instructions [email or web address] Not available 05/05/2022 15:19:08 dizziness: care instructions [email or web address] Not available 05/05/2022 15:19:08 high blood pressure: care instructions [email or web address] Not available 05/05/2022 15:19:08 learning about high blood pressure Not available 05/05/2022 15:19:08 aortic valve regurgitation: care instructions Not available 05/05/2022 15:19:08 10/27/2022 [id number] leg and ankle edema: care instructions [email or web address] Not available 10/27/2022 12:49:16 dizziness: care instructions Not available 10/27/2022 12:49:16 high blood pressure: care instructions [email or web address] Not available 10/27/2022 12:49:16 learning about high blood pressure [email or web address] Not available 10/27/2022 12:49:16 aortic valve regurgitation: care instructions [email or web address] Not available 10/27/2022 12:49:16 01/05/2023 [id number] leg and ankle edema: care instructions [email or web address] Not available 01/05/2023 14:34:19 dizziness: care instructions Not available 01/05/2023 14:34:18 high blood pressure: care instructions [email or web address] Not available 01/05/2023 14:34:19 learning about high blood pressure [email or web address] Not available 01/05/2023 14:34:18 aortic valve regurgitation: care instructions [email or web address] Not available 01/05/2023 14:34:18 Reason for Referral [...] observ ation record ed. [facility] [address] [place] [address] [address], [place], [address], 02/23/2022 09:20:36 02/19/20 22 02/10/2022 US, echoc [...] 234. 02/18/22:PT 12.8,INR 1.0,aPTT 24. Alyssa kolb [facility] 07/07/2022 18:09:35 Covid-19 Counseling* : 02/17/22: Not detected Alyssa kolb [facility] 07/07/2022 18:26:45 Problems Name Problem SNOMED Code Status Onset Date Resolution Date Notes Provider Name and Address Organization Details Recorded Time Anxiety 61967870 Active 2016 Maty kolb [facility] 7 16:38:50 Depressive disorder 85068919 Active 2016 Maty kolb [facility] 7 16:38:57 Diabetes mellitus 06665675 Active 2016 Maty kolb [facility] 7 16:39:04 Essential hypertensio n 77665367 Active [address] [facility] 7 17:47:48 History of obesity 500652239 Active 2016 Elissa kol[address] [facility] 7 14:54:52 Atypical chest pain 830983377 Active 2016 Elissa kolb [facility] 7 14:55:31 Dyslipidemi a 271262224 Active 2016 Elissa kol[address] [facility] 7 14:55:41 Hypercholes terolemia 60111472 Active 2016 Elissa kolb [facility] 7 14:56:07 Tachycardia 8296939 Active 2016 Adan kolb [facility] 7 13:42:11 Pain in bilateral legs 5677025639404 9108 Active 2017 Adan Dobbins [facility] 8 14:26:05 Dizziness 963190795 Active 2017 Adan Dobbins [facility] 8 18:15:46 Edema of lower extremity 498345700 Active 2018 Alyssa Fernandez [facility] 9 12:16:31 Aortic valve regurgitati on 50751119 Active 2021 Adan Dobbins [facility] 2 16:09:41 Coronary arterioscle rosis 76250658 Active 2021 Adan Dobbins [facility] 2 17:36:49 Pre-surgery evaluation Active 2021 Adan Dobbins [facility] 2 17:51:16 Problem Notes None recorded. Procedures Surgical History Date Name Laterality Status Provider Name and Address Organization Details Recorded Time Hysterectomy completed [facility] 06/16/2017 16:39:23 Back Surgery completed [facility] 06/16/2017 16:39:34 Knee arthroscopy/surge ry completed [facility] 06/16/2017 16:39:53 Appendectomy completed [facility] 06/16/2017 16:40:10 Imaging Results None recorded. Procedure Notes None recorded. Medical Equipment None Reported. Allergies Allergen ID Allergen Name Allergen Category Reaction Reaction Severity Criticality Documentation Date Start Date Code Code System Note Provider Name and Address Organization Details Recorded Time 82303 lisinopri l medicatio n confusion Not available unabletoasse 01/05/2023 10308 RxNorm Adan Dobbins [facility] 3 14:28:45 5287 prochlorp erazine medicatio n Not available Not available Not available 07/03/2017 8704 RxNorm Elissa Mcnair [facility] 7 14:54:13 Medications Name Sig Start Date [...] e 50 mcg/actua tion nasal spray,[employer] [place] 1 spray twice a day by intranas [...] weight Heart rate Respiratory rate Oxygen saturation Systolic And Diastolic Provider Name and Address Organization Details Last Updated DateTime 3 170.18 cm 32 kg/m2 27936.8 4 g 74 /min 16 /min 96 % 122/82 mm[Hg] Ministerio Arrieta [facility] 3 11:48:12 Date Recorded Body height Body mass index (BMI) Body weight Heart rate Respiratory rate Oxygen saturation Systolic And Diastolic Provider Name and Address Organization Details Last Updated DateTime 3 170.18 cm 29.6 kg/m2 13299.9 6 g 91 /min 16 /min 97 % 124/82 mm[Hg] Ministerio Arrieta [facility] 3 14:08:15 Date Recorded Body height Body mass index (BMI) Body weight Oxygen saturation Systolic And Diastolic Provider Name and Address Organization Details Last Updated DateTime 02/03/2022 170.18 cm 34.9 kg/m2 662552.1 g 99 % 122/78 mm[Hg] Ministerio Arrieta [facility] 2 11:02:47 Date Recorded Heart rate Provider Name an d Address Organization Details Last Updated DateTime 02/03/2022 81 /min Adan Dobbins [facility] 02/03/2022 11:45:58 Date Recorded Body height Body mass index (BMI) Body weight Heart rate Oxygen saturation Systolic And Diastolic Provider Name and Address Organization Details Last Updated DateTime 2 170.18 cm 36 kg/m2 314076. 25 g 100 /min 94 % 122/76 mm[Hg] Ministerio Arrieta [facility] 2 15:45:20 Date Recorded Body height Body mass index (BMI) Body weight Heart rate Respiratory rate Oxygen saturation Systolic And Diastolic Provider Name and Address Organization Details Last Updated DateTime 2 170.18 cm 36.8 kg/m2 349571. 21 g 89 /min 16 /min 95 % 120/72 mm[Hg] Ministerio Arrieta [facility] 2 14:26:37 Social History Question Answer Notes LastModified by Organizat ion Details LastModified Time Tobacco Smoking Status Former Smoker Not Available [facility] 07/22/2020 03:30:40 What Type Of Diet Are You Following? REGULAR [id number] Information not available 07/22/2020 What Was The Date Of Your Most Recent Tobacco Screening? 11/08/2018 [id number] Information not available 07/22/2020 Sex: Unknown Functional Status Question Answer Note LastModified by Organization D etails LastModified Time What is your level of alcohol consumption? None [id number] Information not available 07/22/2020 Mental Status None [...] available 06/16 16:46:07 Mother Myocardial infarction 46 [email or web address] Not available 06/16 17:50:10 Medical History Condition Response Depression Y Diabetes Y Hyperlipidemia Y Hypertension Y Gynecological HistoryNo gynecological history recorded. Obstetrics History GPAL:G 0 P 0 0 0 0 Past Encounters Encounter ID Performer Location Encounter Start Date Encounter Closed Date Diagnosis/Indication Diagnosis SNOMED-CT Code Diagnosis ICD10 Code Diagnosis IMO Codes Diagnosis Note [id number] Adan Dobbins MD [facility] Office [address] [facility] [address] [address] 06/16/2017 16:32:06 06/17/2017 13:04:31 Chest pain 81081262 R07.9 Atypical. Stable. May be related to increased BP. Had echo 06/14/17: normal LV systolic function, mild LVH, EF 57%, mild AI. Had exercise nuclear test 06/14/17: below average exercise capacity, no ischemia, LVEF >70%. Diabetes mellitus 884103 09 E11.59 Discussed importance of tight glycemic control to minimize cardiovasc ular disease progressio n. Essential hypertension 34119841 I10 Newly diagnosed. Patient's blood pressure is [...] Began metoprolol succinate 50 mg qd 06/16/17. [id number] Adan Dobbins MD [facility] OFFICE [address] [place] [address] 07/04/2017 12:07:40 07/05/2017 09:37:07 Essential hypertension 28949672 I10 Newly diagnosed. Patient's blood pressure is [...] control with elevated resting HR. Chest pain 88773919 R07. 9 Atypical. Improved. May be related to increased BP. Had echo 06/14/17: normal LV systolic function, mild LVH, EF 57%, mild AI. Had exercise nuclear test 06/14/17: below average exercise capacity, no ischemia, LVEF >70%. Diabetes mellitus 245891 09 E11.59 Discussed importance of tight glycemic control to minimize cardiovasc ular disease progressio n. Hypercholesterolemia 136 64929 E78.2 Needs to keep LDL less than 70, and HDL more than 40. Began atorvastat in 20 mg qHS 07/04/17. FLP 4 wks. Tachycardia 3570178 R00. 0 Follow on metoprolol . Obtain TSH. D-dimer normal 06/14/17. [id number] Adan Dobbins MD [address] [address] 08/15/2017 11:58:15 08/16/2017 10:27:57 Essential hypertension 83940630 I10 Newly diagnosed. Pt reports elevated BP [...] amlodipine 5 mg qd 08/15/17. Chest pain 81103194 R07. 9 Atypical. Intermitte nt and nonexertio nal. May be related to increased BP. Had echo 06/14/17: normal LV systolic function, mild LVH, EF 57%, mild AI. Had exercise nuclear test 06/14/17: below average exercise capacity, no ischemia, LVEF >70%. Hypercholesterolemia 136 76856 E78.2 Needs to keep LDL less than 70, and HDL more than 40. Began atorvastat in 20 mg qHS 07/04/17. FLP 4 wks. later with LDL 68. Diabetes mellitus 114567 09 E11.59 Discussed importance of tight glycemic control to minimize cardiovasc ular disease progressio n. Tachycardia 7426984 R00. 0 Improved on metoprolol . Obtain TSH. D-dimer normal 06/14/17. [id number] Adan Dobbins MD [facility] OFFICE [address] [place] [address] 09/07/2017 14:31:18 09/08/2017 12:52:38 Essential hypertension 81209775 I10 Newly diagnosed. Patient's blood pressure is [...] amlodipine 10 mg qd 09/07/17. Chest pain 54794865 R07. 9 Atypical. Improved. Intermitte nt and nonexertio nal. May be related to increased BP. Had echo 06/14/17: normal LV systolic function, mild LVH, EF 57%, mild AI. Had exercise nuclear test 06/14/17: below average exercise capacity, no ischemia, LVEF >70%. Hypercholesterolemia 136 65242 E78.2 Needs to keep LDL less than 70, and HDL more than 40. Began atorvastat in 20 mg qHS 07/04/17. FLP 4 wks. later with LDL 68. Diabetes mellitus 613991 E11.59 Discussed importance of tight glycemic control to minimize cardiovasc ular disease progressio n. Follows with endo. Tachycardia 1689938 R00. 0 Improved on metoprolol . Obtained TSH 2.42, normal, 08/19/17. D-dimer normal 06/14/17. [id number] MD Tara Luciano Office [address] [facility] [place] [address] 10/18/2017 12:51:02 10/18/2017 14:59:51 Essential hypertension 14895557 I10 Newly diagnosed. Patient's blood pressure is [...] qd 10/18/17. BMP/Mg in 3wks. Chest pain 65902767 R07. 9 Atypical. Improved. Intermitte nt and nonexertio nal. May be related to increased BP. Had echo 06/14/17: normal LV systolic function, mild LVH, EF 57%, mild AI. Had exercise nuclear test 06/14/17: below average exercise capacity, no ischemia, LVEF >70%. Hypercholesterolemia 136 48674 E78.2 Needs to keep LDL less than 70, and HDL more than 40. Began atorvastat in 20 mg qHS 07/04/17. FLP 4 wks. later with LDL 68. Diabetes mellitus 542622 09 E11.59 Discussed importance of tight glycemic control to minimize cardiovasc ular disease progressio n. Follows with endo. Tachycardia 0495512 R00. 0 Improved on metoprolol . Obtained TSH 2.42, normal, 08/19/17. D-dimer normal 06/14/17. Pain in bi lateral legs 4563328605 1559519 M79.604 Obtain ABIs. [id number] Adan Dobbins MD [facility] OFFICE [address] [place] [address] 12/05/2017 12:29:25 12/13/2017 09:36:55 Essential hypertension 46876282 I10 Newly diagnosed. Patient's blood pressure is [...] at 1.4. Began MgOxide daily. Chest pain 61152542 R07. 9 Atypical. Improved. Intermitte nt and non-exerti onal. May be related to increased BP. Had echo 06/14/17: normal LV systolic function, mild LVH, EF 57%, mild AI. Had exercise nuclear test 06/14/17: below average exercise capacity, no ischemia, LVEF >70%. Hypercholesterolemia 136 24538 E78.2 Needs to keep LDL less than 70, and HDL more than 40. Began Atorvastat in 20 mg qHS 07/04/17. LDL 68 08/08/17. Diabetes mellitus 215995 09 E11.59 Discussed importance of tight glycemic control to minimize cardiovasc ular disease progressio n. Follows with endo. Tachycardia 3567454 R00. 0 Improved but intermitte nt palpitatio ns on Metoprolol . Obtained TSH 2.42, normal, 08/19/17. D-dimer normal 06/14/17. Pain in bi lateral legs 1253882955 7780286 M79.604 Had Normal ankle-brac hial index done in 10/26/17. Palpitations 53011116 R0 0.2 Obtain 24 hr Holter monitor to rule out arrhythmia . Had low Mg 1.4 11/18/17.Beg an Mg Oxide 400mg qd 12/05/17. Had 08/19/17 TSH 2.420. [id number] Adan Dobbins MD [facility] OFF[facility] [address] [place] [address] 01/16/2018 16:11:38 01/17/2018 13:04:24 Essential hypertension 57162601 I10 Newly diagnosed. Patient's blood pressure is [...] at 1.4. Began MgOxide daily 11/2017. Palpitations 31261407 R0 0.2 Less frequent but still symptomati c since began Mg Oxide. Obtain Cardea Monitor for 7 days to rule out arrhythmia . Had low Mg 1.4 11/18/17. Began Mg Oxide 400 mg qd 12/05/17. Had 08/19/17 TSH 2.420. Chest pain 83926739 R07. 9 Atypical. Improved. Intermitte nt and non-exerti onal. May be related to increased BP. Had echo 06/14/17: normal LV systolic function, mild LVH, EF 57%, mild AI. Had exercise nuclear test 06/14/17: below average exercise capacity, no ischemia, LVEF >70%. Hypercholesterolemia 136 71671 E78.2 Needs to keep LDL less than 70, and HDL more than 40. Began Atorvastat in 20 mg qHS 07/04/17. LDL 68 08/08/17. Diabetes mellitus 590944 09 E11.59 Discussed importance of tight glycemic control to minimize cardiovasc ular disease progressio n. Follows with endo. Tachycardia 4146105 R00. 0 Improved but intermitte nt palpitatio ns on Metoprolol . Obtained TSH 2.42, normal, 08/19/17. D-dimer normal 06/14/17. Pain in bi lateral legs 4224590547 0257842 M79.604 Had Normal ankle-brac hial index done in 10/26/17. [id number] Adan Dobbins MD [facility]ICE [address] [place] [address] 01/23/2018 16:55:19 01/24/2018 13:43:48 Essential hypertension 66067593 I10 Newly diagnosed. Patient's blood pressure is [...] reflux study if LE edema recurs. Palpitations 77969074 R0 0.2 Less frequent but still symptomati c since began Mg Oxide. Obtain Cardea Monitor for 7 days to rule out arrhythmia . Had low Mg 1.4 on 11/18/17. Began Mg Oxide 400 mg qd 12/05/17. Had 08/19/17 TSH 2.420. Chest pain 94870741 R07. 9 Atypical. Improved. Intermitte nt and non-exerti onal. May be related to increased BP. Had echo 06/14/17: normal LV systolic function, mild LVH, EF 57%, mild AI. Had exercise nuclear test 06/14/17: below average exercise capacity, no ischemia, LVEF >70%. Hypercholesterolemia 136 21700 E78.2 Needs to keep LDL less than 70, and HDL more than 40. Began Atorvastat in 20 mg qHS 07/04/17. LDL 68 on 08/08/17. Diabetes mellitus 936155 09 E11.59 Discussed importance of tight glycemic control to minimize cardiovasc ular disease progressio n. Follows with endo. Tachycardia 1414841 R00. 0 Improved but intermitte nt palpitatio ns on Metoprolol . Obtained TSH 2.42, normal, 08/19/17. D-dimer normal 06/14/17. Pain in bi lateral legs 4354138686 9355434 M79.604 Had Normal ankle-brac hial index done in 10/26/17. Edema of l ower extremity 607999022 R60.0 Improved. Started on HCTZ 12.5 mg 01/20/18. Had negative Venous Doppler for DVT on 01/20/18. [id number] Adan Dobbins MD [facility] OFFICE [address] [place] [address] 02/15/2018 16:48:28 02/15/2018 19:04:08 Essential hypertension 57235343 I10 Patient's blood pressure is well-contr olled [...] reflux study if LE edema recurs. Palpitations 28500535 R0 0.2 Less frequent but still symptomati [...] 1.5. Had 08/19/17 TSH 2.420. Chest pain 86132921 R07. 9 Atypical. Improved. Intermitte nt and non-exerti onal. Had echo 06/14/17: normal LV systolic function, mild LVH, EF 57%, mild AI. Had exercise nuclear test 06/14/17: below average exercise capacity, no ischemia, LVEF >70%. Hypercholesterolemia 136 86044 E78.2 Needs to keep LDL less than 70, and HDL more than 40. Began Atorvastat in 20 mg qHS 07/04/17. LDL 68 on 08/08/17. Diabetes mellitus 509581 09 E11.59 Discussed importance of tight glycemic control to minimize cardiovasc ular disease progressio n. Follows with endo. Tachycardia 7767044 R00. 0 Improved but intermitte nt palpitatio ns on Metoprolol . Obtained TSH 2.42, normal, 08/19/17. D-dimer normal 06/14/17. Pain in bi lateral legs 7108361057 5151151 M79.604 Had Normal ankle-brac hial index done in 10/26/17. Edema of l ower extremity 457477056 R60.0 Improved. Started on HCTZ 12.5 mg 01/20/18 with resolution of edema but with increased Cr, prompting cessation of hydrochlor othiazide Feb 15 2018. Had negative Venous Doppler for DVT on 01/20/18. Dizziness 567816833 R42 Obtain carotid U/S. Stopped HCTZ given increased BUN and Cr. [id number] David Hancock MD [facility] OFF[facility] [place] [place] [address] 03/15/2018 16:30:20 03/23/2018 18:34:33 Essential hypertension 40359514 I10 Patient's blood pressure is well-contr olled [...] reflux study if LE edema recurs. Palpitations 28890815 R0 0.2 Less frequent but still symptomati [...] 1.5. Had 08/19/17 TSH 2.420. Chest pain 82982782 R07. 9 Atypical. Improved. Intermitte nt and non-exerti onal. Had echo 06/14/17: normal LV systolic function, mild LVH, EF 57%, mild AI. Had exercise nuclear test 06/14/17: below average exercise capacity, no ischemia, LVEF >70%. Hypercholesterolemia 136 50668 E78.2 Needs to keep LDL less than 70, and HDL more than 40. Began Atorvastat in 20 mg qHS 07/04/17. LDL 68 on 08/08/17. Diabetes mellitus 221443 09 E11.59 Discussed importance of tight glycemic control to minimize cardiovasc ular disease progressio n. Follows with endo. Tachycardia 2378252 R00. 0 Improved but intermitte nt palpitatio ns on Metoprolol . Obtained TSH 2.42, normal, 08/19/17. D-dimer normal 06/14/17. Pain in bi lateral legs 7026708524 2291854 M79.604 Had Normal ankle-brac hial index done in 10/26/17. Edema of l ower extremity 778210743 R60.0 Improved. Started on HCTZ 12.5 mg 01/20/18 with resolution of edema but with increased Cr, prompting cessation of hydrochlor othiazide Feb 15 2018. Had negative Venous Doppler for DVT on 01/20/18. Dizziness 944757674 R42 Obtain carotid U/S. Stopped HCTZ given increased BUN and Cr. [id number] David Hancock MD [facility] [address] [place] [address] 05/29/2018 10:46:20 06/13/2018 02:43:29 Essential hypertension 81112176 I10 Patient's blood pressure is well-contr olled [...] reflux study if LE edema recurs. Palpitations 05514267 R0 0.2 More frequent the last 1 [...] 1.5. Had 05/25/18 TSH 2.330 Chest pain 07971021 R07. 9 Atypical. Improved. Intermitte nt and non-exerti onal. Had echo 06/14/17: normal LV systolic function, mild LVH, EF 57%, mild AI. Had exercise nuclear test 06/14/17: below average exercise capacity, no ischemia, LVEF >70%. Hypercholesterolemia 136 69852 E78.2 Needs to keep LDL less than 70, and HDL more than 40. Began Atorvastat in 20 mg qHS 07/04/17. Increased Atorvastat in to 40 mg once daily 05/29/18. LDL was 131 on 05/25/18 Will start Fish Oil 1000 mg twice daily for TG 258. Diabetes mellitus 342408 09 E11.59 Discussed importance of tight glycemic control to minimize cardiovasc ular disease progressio n. Follows with endo. Tachycardia 3174136 R00. 0 Improved but intermitte nt palpitatio ns on Metoprolol 200 mg qd. Had 05/25/18 TSH 2.330. Pain in bi lateral legs 0176240667 7076983 M79.604 Had Normal ankle-brac hial index done in 10/26/17. Edema of l ower extremity 048265910 R60.0 Improved. Started on HCTZ 12.5 mg 01/20/18 with resolution of edema but with increased Cr, prompting cessation of hydrochlor othiazide Feb 15 2018. Had negative Venous Doppler for DVT on 01/20/18. Dizziness [id number] R42 Intermitte nt. Had Carotid US on 02/22/18 showing mild bilateral internal carotid artery stenosis with less than 60% diameter stenosis. Stopped HCTZ given increased BUN and Cr. Anxiety 02901883 F41.9 History of anxiety and currently going [...] agrees with the plan. All questions answered. [id number] David Hancock MD [facility] [place] [address] 07/04/2018 15:00:24 07/04/2018 15:33:37 Essential hypertension 15323704 I10 Well controlled today. Is not taking her medication s as prescribed . She stopped taking her medication s 1 week ago, Amlodipine 5 mg, Lisinopril 10 mg, Metoprolol 200 mg qd and Magnesium Oxide. Palpitations 66288672 R0 0.2 less frequent. Had Beat [employer] 7 day monitor 01/23/2018 which demonstrat ed [...] TSH 2.330 07/06 stopped MagOxide Chest pain 77971848 R07. 9 Atypical. Improved. Intermitte nt and non-exerti onal. Had echo 06/14/17: normal LV systolic function, mild LVH, EF 57%, mild AI. Had exercise nuclear test 06/14/17: below average exercise capacity, no ischemia, LVEF >70%. Tachycardia 3776840 R00. 0 Improved but intermitte nt palpitatio ns on Metoprolol 200 mg qd. Had 05/25/18 TSH 2.330. Hypercholesterolemia 136 51240 E78.2 Needs to keep LDL less than 70, and HDL more than 40. Began Atorvastat in 20 mg qHS 07/04/17. Increased Atorvastat in to 40 mg once daily 05/29/18. LDL was 131 on 05/25/18 Will start Fish Oil 1000 mg twice daily for TG 258. Will repeat FLP before next visit. Diabetes mellitus 492828 09 E11.59 Discussed importance of tight glycemic control to minimize cardiovasc ular disease progressio n. Follows with endo. Pain in bi lateral legs [id number] 9996256 M79.604 Had Normal ankle-brac hial index done in 10/26/17. Edema of l ower extremity 898372913 R60.0 Improved. Started on HCTZ 12.5 mg 01/20/18 with resolution of edema but with increased Cr, prompting cessation of hydrochlor othiazide Feb 15 2018. Had negative Venous Doppler for DVT on 01/20/18. Dizziness 612667141 R42 Intermitte nt. Had Carotid US on 02/22/18 showing mild bilateral internal carotid artery stenosis with less than 60% diameter stenosis. Stopped HCTZ given increased BUN and Cr. Anxiety 17214266 F41.9 History of anxiety and currently going [...] agrees with the plan. All questions answered. [id number] Adan Dobbins MD [facility] [address] [place] [address] 11/08/2018 15:21:24 11/08/2018 17:38:34 Essential hypertension 36774518 I10 Well-contr olled today despite stopping all of her anti-hyper tensives on her own since 06/2018. She lost 23 lbs. since January 2018 and is more active. Is not taking her medication s as prescribed . She stopped taking her medication s 11/08/18: Amlodipine 5 mg, Lisinopril 10 mg, Metoprolol 200 mg qd and Magnesium Oxide. BP diary. Palpitations 66986755 R0 0.2 Less frequent. Had Cardea 7 [...] 1.5. Had 05/25/18 TSH 2.330 Chest pain 33139880 R07. 9 Atypical. Improved. Intermitte nt and non-exerti onal. Had echo 06/14/17: normal LV systolic function, mild LVH, EF 57%, mild AI. Had exercise nuclear test 06/14/17: below average exercise capacity, no ischemia, LVEF >70%. Tachycardia 3409867 R00. 0 Improved but intermitte nt palpitatio ns on Metoprolol 200 mg qd, which she self-disco ntinued. Had 05/25/18 TSH 2.330. Hypercholesterolemia 136 42852 E78.2 Needs to keep LDL less than 70, and HDL more than 40. Began Atorvastat in 20 mg qHS 07/04/17. Increased Atorvastat in to 40 mg once daily 05/29/18. LDL was 131 on 05/25/18 She stopped atorvastat in on her own 06/2018. Obtain FLP. Diabetes mellitus 419289 09 E11.59 Discussed importance of tight glycemic control to minimize cardiovasc ular disease progressio n. Follows with endo. Pain in bi lateral legs [id number] 4413933 M79.604 Had Normal ankle-brac hial index done in 10/26/17. Edema of l ower extremity 393857826 R60.0 Improved. Started on HCTZ 12.5 mg 01/20/18 with resolution of edema but with increased Cr, prompting cessation of hydrochlor othiazide Feb 15 2018. Had poor liquid intake at that time. Had negative Venous Doppler for DVT on 01/20/18. Dizziness 113126410 R42 Intermitte nt. Improved. Had Carotid US on 02/22/18 showing mild bilateral internal carotid artery stenosis with less than 60% diameter stenosis. Needs repeat carotid U/S 02/2019. Stopped HCTZ given increased BUN and Cr. Anxiety 06690420 F41.9 Improved. History of anxiety and currently going through major life changes. [id number] Adan Dobbins MD [facility] [address] [place] [address] 01/13/2022 14:02:40 01/13/2022 16:32:52 Essential hypertension [id number] I10 Well-contr olled today despite stopping all of her anti-hyper tensives on her own since 06/2018. She lost 23 lbs. since January 2018 and is more active. Is not taking her medication s as prescribed . She stopped taking her medication s 11/08/18: Amlodipine 5 mg, Lisinopril 10 mg, Metoprolol 200 mg qd and Magnesium Oxide. BP diary. Palpitations 04176499 R0 0.2 Less frequent. Had Cardea 7 [...] 1.5. Had 05/25/18 TSH 2.330 Chest pain 85788862 R07. 9 Patient presents with chest pain [...] stress test normal, consider stopping ASA. Tachycardia 5790951 R00. 0 Improved but intermitte nt palpitatio ns on Metoprolol 200 mg qd, which she self-disco ntinued. Had 05/25/18 TSH 2.330. Hypercholesterolemia 136 79181 E78.2 Needs to keep LDL less than 70, and HDL more than 40. Began Atorvastat in 20 mg qHS 07/04/17. Increased Atorvastat in to 40 mg once daily 05/29/18. LDL was 131 on 05/25/18 She stopped atorvastat in on her own 06/2018. Obtain FLP. Diabetes mellitus 928485 09 E11.59 Discussed importance of tight glycemic control to minimize cardiovasc ular disease progressio nSirisha Follows with endo. Pain in bi lateral legs 4499323163 0770958 M79.604 Had Normal ankle-brac hial index done in 10/26/17. Edema of l ower extremity 501496941 R60.0 Intermitte nt. Started on HCTZ 12.5 mg 01/20/18 with resolution of edema but with increased Cr, prompting cessation of hydrochlor othiazide Feb 15 2018. Had poor liquid intake at that time. Had negative Venous Doppler for DVT on 01/20/18. Elevate legs.Compr ession stockings. Low Na diet. Consider HCTZ pending labs. Dizziness 415968547 R42 Intermitte nt. Improved. Had Carotid US on 02/22/18 showing mild bilateral internal carotid artery stenosis with less than 60% diameter stenosis. Needs repeat carotid U/S. Anxiety 15875246 F41.9 Improved. History of anxiety and currently going through major life changes. Aortic edita ve regurgitation 07274543 I35.1 Mild. Had 06/14/17 ECHO: Normal left ventricula r systolic function , no local well motion abnormalit ies, normal left ventricula r size , mild concentric left ventricula r hypertroph y, normal left ventricula r diastolic function, EF 57%, Mild aortic valve regurgitat ion. Obtain echo to evaluate for structural /functiona l disease. [id number] Adan Dobbins MD [facility] [address] [place] [address] 02/03/2022 10:46:00 02/03/2022 11:59:11 Aortic valve regurgitation 79178976 I35.1 Mild. Had 06/14/17 ECHO: Normal left ventricula r systolic function , no local well motion abnormalit ies, normal left ventricula r size , mild concentric left ventricula r hypertroph y, normal left ventricula r diastolic function, EF 57%, Mild aortic valve regurgitat ion. Obtain echo to evaluate for structural /functiona l disease. Essential hypertension 76976974 I10 Well-contr olled today despite stopping all of her anti-hyper tensives on her own since 06/2018. She lost 23 lbs. since January 2018 and is more active. Is not taking her medication s as prescribed . She stopped taking her medication s 11/08/18: Amlodipine 5 mg, Lisinopril 10 mg, Metoprolol 200 mg qd and Magnesium Oxide. BP diary. Dizziness 539037512 R42 Intermitte nt. Improved. Had Carotid US on 02/22/18 showing mild bilateral internal carotid artery stenosis with less than 60% diameter stenosis. Needs repeat carotid U/S. Pain in bi lateral legs [id number] 4603241 M79.604 Had Normal ankle-brac hial index done in 10/26/17. Tachycardia 6730772 R00. 0 Improved but intermitte nt palpitatio ns on Metoprolol 200 mg qd, which she self-disco ntinued. Had 05/25/18 TSH 2.330. Anxiety 52478320 F41.9 Improved. History of anxiety and currently going through major life changes. Diabetes mellitus 951654 09 E11.59 Discussed importance of tight glycemic control to minimize cardiovasc ular disease progressio n. Follows with endo. Edema of l ower extremity 391483338 R60.0 Intermitte nt. Minimal. Started on HCTZ 12.5 mg 01/20/18 with resolution of edema but with increased Cr, prompting cessation of hydrochlor othiazide Feb 15 2018. Had poor liquid intake at that time. Had negative Venous Doppler for DVT on 01/20/18. Elevate legs.Compr ession stockings. Low Na diet. Consider HCTZ if edema increases. History of obesity 60615 3001 Z91.89 20 lb. weight loss recommende d over the next 2 months. Hypercholesterolemia 136 78540 E78.2 Needs to keep LDL less than [...] gm bid 02/03/22. Atypical chest pain 1025 14650 R07.89 Patient presents with chest pain with [...] . The patient agrees to proceed at [facility]. Had echo 06/14/17: normal LV systolic function, mild LVH, EF 57%, mild AI. Had exercise nuclear test 06/14/17: below average exercise capacity, no ischemia, LVEF >70%. Had 01/20/22 CMP-NA 138 K 4.0 CR 1.08 GL 106 CA 8.7 MAG 1.7 LIPID-TRIG 438 CHOL 265 LDL 137 HDL 39 CBC-WBC 8.9 RBC 4.32 HGB 13.8 HCT 39.3 PLT 234 Palpitations 12464569 R0 0.2 Less frequent. Had Cardea 7 [...] mg qd 12/05/17. Had 05/25/18 TSH 2.330 [id number] Adan Dobbins MD [facility] [address] [place] [address] 03/03/2022 15:38:56 03/03/2022 18:05:44 Aortic valve regurgitation 22647601 I35.1 Mild previously . Had US, echocardio [...] Mild aortic valve regurgitat ion. Essential hypertension 34781437 I10 Well-contr olled today despite stopping all of her anti-hyper tensives on her own since 06/2018. She lost 23 lbs. since January 2018 and is more active. Is not taking her medication s as prescribed . She stopped taking her medication s 11/08/18: Amlodipine 5 mg, Lisinopril 10 mg, Metoprolol 200 mg qd and Magnesium Oxide. BP diary. Dizziness 610334465 R42 Intermitte nt. Improved. Had US, carotid artery ( 2) Antegrade flow noted in both vertebral arteries. Mild bilateral internal carotid artery stenosis with less than 50% diameter stenosis. Had Carotid US on 02/22/18 showing mild bilateral internal carotid artery stenosis with less than 60% diameter stenosis. Needs repeat carotid U/S 02/2023. Pain in bi lateral legs 8860440048 3186142 M79.604 Had Normal ankle-brac hial index done in 10/26/17. Tachycardia 1737132 R00. 0 Improved but intermitte nt palpitatio ns on Metoprolol 200 mg qd, which she self-disco ntinued. Had 05/25/18 TSH 2.330. Anxiety 08304811 F41.9 Improved. History of anxiety and currently going through major life changes. Diabetes mellitus 668484 09 E11.59 Discussed importance of tight glycemic control to minimize cardiovasc ular disease progressio n. Follows with endo. Edema of l ower extremity 681812883 R60.0 Intermitte nt. Minimal. Started on HCTZ 12.5 mg 01/20/18 with resolution of edema but with increased Cr, prompting cessation of hydrochlor othiazide Feb 15 2018. Had poor liquid intake at that time. Had negative Venous Doppler for DVT on 01/20/18. Elevate legs.Compr ession stockings. Low Na diet. Consider HCTZ if edema increases. History of obesity 44678 3001 Z91.89 20 lb. weight loss recommende d over the next 2 months. Hypercholesterolemia 136 60540 E78.2 Needs to keep LDL less than [...] FLP 1 mo. Atypical chest pain 1025 16348 R07.89 Patient presents with chest pain with [...] HGB 13.8 HCT 39.3 PLT 234 Palpitations 01406135 R0 0.2 Less frequent. Had Cardea 7 [...] 12/05/17. Had 05/25/18 TSH 2.330 Coronary arteriosclerosis 48009813 I25.10 Mild-moder ate CAD. Had C 02/18/22: mild to moderate CAD (40% stenosis mid LCx, LAD and RCA no significan t disease, RCA non-domina nt), normal LV systolic function, normal LVEDP. Continue ASA. Needs to keep LDL less than 70, and HDL more than 40. Pre-surger y evaluation 537580198 Z01.818 There is no cardiac contraindi cation for the procedure. The planned procedure would be within acceptable risk. Patient may stop taking aspirin five (5) days prior to the procedure. [id number] Adan Dobbins MD [facility] [address] [place] [address] 05/05/2022 14:17:27 05/05/2022 15:27:04 Aortic valve regurgitation 20622976 I35.1 Mild previously . Had US, echocardio [...] Mild aortic valve regurgitat ion. Essential hypertension 50747420 I10 Well-contr olled with diet today despite [...] Oxide. BP diary. Obtain BMP, Mg. Dizziness 849963066 R42 Intermitte nt. Postural. Had US, carotid artery ( 2) Antegrade flow noted in both vertebral arteries. Mild bilateral internal carotid artery stenosis with less than 50% diameter stenosis. Had Carotid US on 02/22/18 showing mild bilateral internal carotid artery stenosis with less than 60% diameter stenosis. Needs repeat carotid U/S 02/2023. Pain in bi lateral legs 3812237368 9951911 M79.604 Had Normal ankle-brac hial index done in 10/26/17. Tachycardia 8891358 R00. 0 Improved but intermitte nt palpitatio ns on Metoprolol 200 mg qd, which she self-disco ntinued. Had 05/25/18 TSH 2.330. Anxiety 16133035 F41.9 Improved. History of anxiety and currently going through major life changes. Diabetes mellitus 053412 09 E11.59 Discussed importance of tight glycemic control to minimize cardiovasc ular disease progressio n. Follows with endo. Edema of l ower extremity 428797080 R60.0 Intermitte nt. Minimal. Started on HCTZ 12.5 mg 01/20/18 with resolution of edema but with increased Cr, prompting cessation of hydrochlor othiazide Feb 15 2018. Had poor liquid intake at that time. Had negative Venous Doppler for DVT on 01/20/18. Elevate legs.Compr ession stockings. Low Na diet. Consider HCTZ if edema increases. History of obesity 66263 3001 Z91.89 20 lb. weight loss recommende d over the next 2 months. Hypercholesterolemia 136 48417 E78.2 Needs to keep LDL less than [...] CPK 72 normal. Atypical chest pain 1025 93991 R07.89 Patient presents with chest pain with [...] 13.8 HCT 39.3 PLT 234 Coronary arteriosclerosis 65112291 I25.10 Mild-moder ate CAD. Had [facility] 02/18/22: mild to moderate CAD (40% stenosis mid LCx, LAD and RCA no significan t disease, RCA non-domina nt), normal LV systolic function, normal LVEDP. Continue ASA. Needs to keep LDL less than 70, and HDL more than 40. Palpitations 74841224 R0 0.2 Resolved. Had Cardea 7 day [...] 152 CA 9.0 MAG 1.6 CK 72 [id number] Adan Dobbins MD [facility] [address] [place] [address] 10/27/2022 11:20:27 10/27/2022 12:56:22 Aortic valve regurgitation 80484737 I35.1 Mild previously . Had US, echocardio [...] Mild aortic valve regurgitat ion. Essential hypertension 13057124 I10 Well-contr olled with diet today despite [...] BP diary. Obtain BMP, Mg, drawn at [facility]. 10/25/22. Dizziness 032156985 R42 Intermitte nt. Postural. Had US, carotid artery ( 2) Antegrade flow noted in both vertebral arteries. Mild bilateral internal carotid artery stenosis with less than 50% diameter stenosis. Had Carotid US on 02/22/18 showing mild bilateral internal carotid artery stenosis with less than 60% diameter stenosis. Needs repeat carotid U/S 01/2023. Pain in bi lateral legs 9968746061 3013554 M79.604 Had Normal ankle-brac hial index done in 10/26/17. Tachycardia 4337569 R00. 0 Improved but intermitte nt palpitatio ns on Metoprolol 200 mg qd, which she self-disco ntinued. Had 05/25/18 TSH 2.330. Anxiety 53402171 F41.9 Improved. History of anxiety and currently going through major life changes. Diabetes mellitus 008045 09 E11.59 Discussed importance of tight glycemic control to minimize cardiovasc ular disease progressio n. Follows with endo. Edema of l ower extremity 881687580 R60.0 Intermitte nt. Minimal. Started on HCTZ 12.5 mg 01/20/18 with resolution of edema but with increased Cr, prompting cessation of hydrochlor othiazide Feb 15 2018. Had poor liquid intake at that time. Had negative Venous Doppler for DVT on 01/20/18. Elevate legs.Compr ession stockings. Low Na diet. Consider HCTZ if edema increases. Obtain labs 10/25/21 [facility]. History of obesity 65028 3001 Z91.89 20 lb. weight loss recommende d over the next 2 months. Hypercholesterolemia 136 42690 E78.2 Needs to keep LDL less than [...] CPK 72 normal. Atypical chest pain 1025 20715 R07.89 Patient presents with chest pain with atypical features and exertional dyspnea which can be an anginal equivalent , improved. Had exercise nuclear stress test 01/26/22: positive for ischemia, with reversible defect consistent with ischemia in laura-api daina area (new compared with 06/14/17).H ad [facility] 02/18/22: mild to moderate CAD (40% [...] 13.8 HCT 39.3 PLT 234 Coronary arteriosclerosis 74613076 I25.10 Mild-moder ate CAD. Had [facility] 02/18/22: mild to moderate CAD (40% stenosis mid LCx, LAD and RCA no significan t disease, RCA non-domina nt), normal LV systolic function, normal LVEDP. Continue ASA. Needs to keep LDL less than 70, and HDL more than 40. Palpitations 56020844 R0 0.2 Resolved. Had Cardea 7 day [...] MAG 1.6 CK 72 Pre-surger y evaluation 964427768 Z01.818 There is no cardiac contraindi cation for the procedure. The planned procedure would be within acceptable risk. Patient may stop taking aspirin five (5) days prior to the procedure. [id number] Adan Dobbins MD [facility] [address] [place] [address] 01/05/2023 14:00:47 01/05/2023 14:46:55 Aortic valve regurgitation 66573831 I35.1 Mild previously . Had US, echocardio [...] regurgitat ion. Obtain echo 03/2023. Essential hypertension 27802222 I10 Well-contr olled with diet today despite [...] CR 1.12 GL 177 CA 9.0 Dizziness 256729327 R42 Intermitte nt. Postural. Had US, carotid artery ( 2) Antegrade flow noted in both vertebral arteries. Mild bilateral internal carotid artery stenosis with less than 50% diameter stenosis. Had Carotid US on 02/22/18 showing mild bilateral internal carotid artery stenosis with less than 60% diameter stenosis. Needs repeat carotid U/S 02/2023. Pain in bi lateral legs 0957734908 9274748 M79.604 Had Normal ankle-brac hial index done in 10/26/17. Tachycardia 2807628 R00. 0 Improved but intermitte nt palpitatio ns on Metoprolol 200 mg qd, which she self-disco ntinued. Had 05/25/18 TSH 2.330. Anxiety 31816317 F41.9 Improved. History of anxiety and currently going through major life changes. Diabetes mellitus 135355 09 E11.59 Discussed importance of tight glycemic control to minimize cardiovasc ular disease progressio n. Follows with endo. Edema of l ower extremity 035837876 R60.0 Intermitte nt. Minimal. Started on HCTZ 12.5 mg 01/20/18 with resolution of edema but with increased Cr, prompting cessation of hydrochlor othiazide Feb 15 2018. Had poor liquid intake at that time. Had negative Venous Doppler for DVT on 01/20/18. Elevate legs.Compr ession stockings. Low Na diet. Consider HCTZ if edema increases. History of obesity 76129 3001 Z91.89 20 lb. weight loss recommende d over the next 2 months. Hypercholesterolemia 136 28404 E78.2 Needs to keep LDL less than [...] Mg, TSH, CBC. Atypical chest pain 1025 35484 R07.89 Resolved. Had exercise nuclear stress test [...] 13.8 HCT 39.3 PLT 234 Coronary arteriosclerosis 74505866 I25.10 Mild-moder ate CAD. Had [facility] 02/18/22: mild to moderate CAD (40% stenosis mid LCx, LAD and RCA no significan t disease, RCA non-domina nt), normal LV systolic function, normal LVEDP. Continue ASA. Intolerant of lisinopril with altered mental status. Needs to keep LDL less than 70, and HDL more than 40. Palpitations 23107044 R0 0.2 Resolved. Had Cardea 7 day [...] Guo Member ID Guarantor Name 05/03/2025 1 [id number] Niles Croft [id number] 1 Niles Croft Notes Date Note Type [...] She is having R ankle surgery at [facility] in [facility] with Dr. Phillips, date pending. Reports [...] related. She had fasting blood work at [facility] on 05/25/18 which was all WNL except [...] >70%. Had normal [facility] on 10/21/17. Had [employer] 7 day monitor 01/23/2018 which demonstrated normal [...] She is having R ankle surgery at [facility] in [facility] with Dr. Phillips, date pending. Reports [...] related. She had fasting blood work at [facility] on 05/25/18 which was all WNL except [...] >70%. Had normal [facility]SEA on 10/21/17. Had [employer] 7 day monitor 01/23/2018 which demonstrated normal [...] correlated with normal sinus rhythm. Adan Dobbins [place], [place] - [facility] 02/03/2022 11:48:28 03/03/2022 text/html 03/03/22 CC: Chest pain 51 year-old woman with history of HTN, aortic valve regurgitation, obesity, diabetes mellitus, CKD, family history of CAD, former tobacco use (quit 05/2016), anxiety, depression, is seen in cardiac consultation for chest pain. She was last in the office 4 weeks ago. Had C 02/18/22: mild to moderate CAD (40% stenosis mid LCx, LAD and RCA no significant disease, RCA non-dominant), normal LV systolic function, normal LVEDP. She is having R ankle surgery at [facility] in [facility] with Dr. Phillips, date pending. Reports [...] related. She had fasting blood work at [facility] on 05/25/18 which was all WNL except [...] >70%. Had normal CHELSEA on 10/21/17. Had [employer] 7 day monitor 01/23/2018 which demonstrated normal [...] No prior echo available for comparison. [facility]HELSEA: 02/02/18 Normal ankle-brachial index. Event monitor 01/23/18: Normal sinus rhythm. Rare PVC'S but not correlated with symptoms. Rare PAC'S but not correlated with symptoms. Sinus tachycardia with average rate of tachycardia 126 bpm. Patient triggered events correlated with normal sinus rhythm. Had [facility] 02/18/22: mild to moderate CAD (40% stenosis mid LCx, LAD and RCA no significant disease, RCA non-dominant), normal LV systolic function, normal LVEDP. Adan Dobbins [place], [place] - [facility] 03/03/2022 17:58:07 05/05/2022 text/html 05/05/22 CC: Chest pain 51 year-old woman with history of CAD, carotid artery stenosis, HTN, aortic valve regurgitation, obesity, diabetes mellitus, CKD, family history of CAD, former tobacco use (quit 05/2016), anxiety, depression, is seen in cardiac consultation for chest pain. She was last in the office 8 weeks ago. Had [facility] 02/18/22: mild to moderate CAD (40% stenosis mid LCx, LAD and RCA no significant disease, RCA non-dominant), normal LV systolic function, normal LVEDP. She had R ankle surgery at [facility] in [facility] with Dr. Phillips 03/2022. Reports home [...] related. She had fasting blood work at [facility] on 05/25/18 which was all WNL except [...] events correlated with normal sinus rhythm. Had [facility] 02/18/22: mild to moderate CAD (40% stenosis mid LCx, LAD and RCA no significant disease, RCA non-dominant), normal LV systolic function, normal LVEDP. Adan kolb [place] - [facility] 05/05/2022 15:19:25 10/27/2022 [...] foot tendon repair, date pending. [facility] 02/18/22: mild to moderate CAD (40% stenosis mid LCx, LAD and RCA no significant disease, RCA non-dominant), normal LV systolic function, normal LVEDP. She had R ankle surgery at [facility] in [facility] with Dr. Phillips 03/2022. Reports home [...] related. She had fasting blood work at [facility] on 05/25/18 which was all WNL except [...] BUN 11, CR .90, AST 22, ALT 274/07/07 CBC: WBC 7.3, HGB 13.0, HCT 38.5, [...] or infarct. Normal left ventricular ejection fraction measuring>70%.04/10/1 9 CHEST 2 VIEWS: No acute cardiopulmonary [...] events correlated with normal sinus rhythm. Had [facility] 02/18/22: mild to moderate CAD (40% stenosis mid LCx, LAD and RCA no significant disease, RCA non-dominant), normal LV systolic function, normal LVEDP. Adan Dobbins [place], [place] - [facility] 10/27/2022 12:49:30 [...] had R foot tendon repair 10/28/22. Had [facility] 02/18/22: mild to moderate CAD (40% stenosis mid LCx, LAD and RCA no significant disease, RCA non-dominant), normal LV systolic function, normal LVEDP. She had R ankle surgery at [facility] in [facility] with Dr. Phillips 03/2022. Reports home [...] related. She had fasting blood work at [facility] on 05/25/18 which was all WNL except [...] EF 57%, Mild aortic valve regurgitation. Had [facility] 02/18/22: mild to moderate CAD (40% [...] events correlated with normal sinus rhythm. Had [facility] 02/18/22: mild to moderate CAD (40% stenosis mid LCx, LAD and RCA no significant disease, RCA non-dominant), normal LV systolic function, normal LVEDP. Adan Dobbins [place], [place] - [facility] 01/05/2023 14:34:41 OBGyn Episode No OBEpisode recorded.
--- OUTSIDE RECORDS SUMMARY | 2025-08-09 12:26 | XMS_ITS | Clinical Summary ---
Author Organization [facility] [employer] Address [address] [place] [address] Care Team Providers Care Superintendent Quarry Name Role Phone Radha Kaminski MY[employer]-BRAZER CRAWLER TORCH Primary Care Provider [phone] Harmony Mcrae MD Unavailable Source Comments [facility] [employer],non-owned Affiliates and Associated Physician Practices is amultiple site organization consisting of ambulatory clinics and hospital sitesin [place], [place], [place] and [place]. This disclosure is being madepursuant to the Care Everywhere program and may not contain all information available regarding this patient. Last updated 18.[facility] Allergies Active Allergy Reactions Criticality Noted [...] fluticasone propionate (FLONASE) 50 MCG/ACT nasal spray [place] 2 (two) sprays into each nostril once daily Active blood glucose (VerixTOUCH ULTRA) test strip USE TO TEST THREE TIMES A DAY 1 Active estradiol (ESTRACE) 2 MG tablet Take 1 (one) tablet by mouth every 24 hours Active Multiple Vitamins-Stitch Bonding Machine Tender Helper als (MULTI VITAMIN/MINERA LS) TABS Take 1 (one) tablet by mouth once daily Active [place]-3 Fatty Acids (FISH OIL) 1000 MG capsule Take 1 (one) capsule by mouth once daily Active Cholecalcifero l 1.25 MG (07322 UT) Take 1 capsule by mouth every [...] naloxone HCl (Narcan) 4 MG/0.1ML nasal spray [place] 1 (one) spray into the nose Active [...] day by topical route. Active HYDROcodone-ac etaminophen ([place]) 5-325 MG tablet Take 1 (one) tablet by mouth two times daily at 4am and 4pm Active indomethacin (Indocin) 50 MG capsule TAKE 1 CAPSULE BY MOUTH THREE TIMES A DAY ADMINISTER WITH FOOD OR MILK Active mupirocin (Bactroban) 2 % ointment 1 APPLIC TOPICALLY TWICE A DAY Active nystatin (Mycostatin) 487869 UNIT/ML suspension Take 5 mL 4 times [...] on file Legal Sex Female 5:06 PM RAMP SUPERVISOR Gender Identity Not on file Sexual Orientation Not on file Last Filed Vital Signs Vital Sign Reading Time Taken Comments Blood Pressure 122/68 10/06/2023 2:03 PM RAMP SUPERVISOR Pulse 79 10/06/2023 2:03 PM RAMP SUPERVISOR Temperature 36.6 C (97.9 F) 01/07/2022 2:03 PM CDT Respiratory Rate 16 08/02/2023 2:35 PM RAMP SUPERVISOR Oxygen Saturation 97% 08/02/2023 2:35 PM RAMP SUPERVISOR Inhaled Oxygen Concentration - - Weight 93.9 kg (207 lb) 10/06/2023 2:03 PM RAMP SUPERVISOR Height 170.2 cm (5' 7) 10/06/2023 2:03 PM RAMP SUPERVISOR Body Mass Index 32.42 10/06/2023 2:03 PM RAMP SUPERVISOR Plan of Treatment Health Maintenance Due [...] of 3 - 19+ 3-dose series) 1987 Cervical Cancer Screening 1989 PAP SMEAR 1989 PAP with HPV 1998 PNEUMOCOCCAL VACCINE 50+ (1 of 1 - PCV) 2018 ZOSTER VACCINE (1 of 2) 2018 DEPRESSION SCREENING 09/19/2024 COVID-19 VACCINE ( - 2024-2 6 season) 2025 INFLUENZA VACCINE (#1) 2025 SCREENING [...] COMPREHENSIVE METABOLIC PANEL Routine 08/02/2023 3:29 PM RAMP SUPERVISOR Arthralgia, unspecified joint HEPATITIS SCREEN ACUTE ([facility]) Routine 08/02/2023 3:28 PM RAMP SUPERVISOR Arthralgia, unspecified joint from Last 3 Months or Most Recently Relevant to Health Maintenance Results * (ABNORMAL) COMPREHENSIVE METABOLIC PANEL (08/02/2023 3:29 PM RAMP SUPERVISOR) Glucose 95 70 - 99 mg/dL [...] BLOOD SPECIMEN / Unknown 08/02/2023 3:29 PM RAMP SUPERVISOR 08/02/2023 Narrative Resulting Agency Comment Lab Testing performed at: [facility] [id number] [id number] Harmony Mcrae MD LAB - CHEMISTRY ORDERABLES Final Result [facility] INSURANCE BILL [address] [place] [address] * HEPATITIS SCREEN ACUTE ([facility]) (08/02/2023 3:28 PM RAMP SUPERVISOR) Hepatitis A Virus Antibody IgM Negative Negative [facility] INSURANCE BILL Hepatitis B Virus Surface Antigen Negative Negative [facility] INSURANCE BILL Hepatitis B Core Virus Antibody IgM Negative Negative [facility] INSURANCE BILL Hepatitis C Antibody Non Reactive Non Reactive [facility] INSURANCE BILL Blood BLOOD SPECIMEN / Unknown 08/02/2023 3:28 PM RAMP SUPERVISOR 08/02/2023 Narrative Resulting Agency Comment Lab Testing performed at: [facility] [id number] Harmony Mcrae MD LAB - CHEMISTRY ORDERABLES Final Result Performing Organization Address City/[facility] Co de Phone Number [facility] INSURANCE BILL [address] [place] [address] from Last 3 Months or Most Recently Relevant to Health Maintenance Insurance Care Teams Superintendent Quarry Relationship Specialty Start Date End Date Radha Kaminski APRN-SCOTT [facility] [address] [place] [address] PCP - General Nurse Practitioner Family 12/03/21 [place] [address] [address] [place] [id number] Rheumatology 12/03/21
--- OUTSIDE RECORDS SUMMARY | 2025-08-09 12:26 | XMS_ITS | Clinical Summary ---
Author Organization [facility] Address [address] [place] [address] Phone Care Team Providers Care Oil Painter Name Role Phone Radha Kaminski Primary Care Provider [phone] Allergies Active Allergy Reactions Criticality Noted Date Comments Prochlorperazine Other (see comments),Shortness of breath High 11/26/2016 [place] Medications aspirin (ST [place]LEY) 81 MG EC tablet Take 81 mg by mouth daily Active buPROPion XL (WELLBUTRIN XL) 150 MG 24 hr tablet 2 Active Cholecalciferol (Vitamin D3) 1.25 MG (83690 UT) capsule Twice a week 2 Active [...] Done Comments Influenza Vaccine (#1) [address] [place] [address] Care Teams Oil Painter Relationship Specialty Start Date End Date Radha Kaminski [facility] [place] [address] PCP - General Family Medicine 06/21/22
--- OUTSIDE RECORDS SUMMARY | 2025-08-09 12:26 | XMS_ITS | Patient Health Record ---
Author Organization [facility] Address [address] [facility] [address] [place] [address] Care Team Providers Care Cotton Tier Name Role Phone Roland Rojas DO Primary Care Provider Unavail able Julian Cummings Unavailable [phone] Allergies Allergen (clinical drug ingredient) Drug/Non Drug Allergy documented on EMR Reaction Allergy Type Onset Date Status Compazine Unknown Drug Allergy 12/21/2023 Active Reason For Referral No Information Medications Medication SIG (Take, Route, Frequency, Duration) Notes Start Date End Date Status Vraylar 3 mg Capsule 1 capsule Oral once daily; Duration: 90 days 08/05/2025 Active OneTouch Ultra Strip In Vitro 12/21/2023 Active buPROPion HCl ER (XL) 150 MG Tablet Extended Release 24 Hour 1 tablet in the morning Oral Once a day; Duration: 90 days 08/05/2025 Active Estradiol 2 MG Tablet Oral 12/21/2023 Active lamoTRIgine 100 MG Tablet 1 tablet in the morning Orally Once a day; Duration: 90 days 08/05/2025 Active Montelukast Sodium 10 MG Tablet Oral 12/21/2023 Active ICOSAPENT ETHYL 1 GRAM CAPSULE *Reorder from [employer] for eRx and Interaction Alerts* 12/21/2023 Active Rosuvastatin Calcium 40 MG Tablet Oral 12/21/2023 Active oxyCODONE HCl 5 MG Tablet Oral 12/21/2023 Active Gabapentin 300 MG Capsule Oral 12/21/2023 Active Magnesium Oxide (Elemental) 400 MG Tablet Oral *Reorder from [employer] for eRx and Interaction Alerts* 12/21/2023 Active Glimepiride 2 MG Tablet Oral 12/21/2023 Active Methylphenidate HCl ER 36 MG Tablet Extended Release 2 tablet every morning Oral once a day; Duration: 30 days 08/05/2025 Active Mounjaro 5 MG/0.5ML Solution Auto-injector Subcutaneous; Duration: 28 Days Active tiZANidine HCl 4 MG Tablet Oral 12/21/2023 Active Social History [...] Problem Bipolar affective disorder, currently depressed, moderate (817607523) Bipolar disorder, current episode depressed, moderate (F31.32) 12/21/19 24 Active confirmed Problem Attention deficit hyperactivity disorder, combined type (63349889) Attention-deficit hyperactivity disorder, combined type (F90.2) Active confirmed Vital Signs Heart Rate 81 /min 08/05/2025 Height-cm 170.18 cm 08/05/2025 Blood pressure diastolic 78 mm Hg 08/05/2025 Weight-kg 93.89 kg 08/05/2025 Height 67.00 in 08/05/2025 Blood pressure systolic 128 mm Hg 08/05/2025 Weight 207 lbs 08/05/2025 BMI 32.42 kg/m2 08/05/2025 Encounters Encounter Location Date Provider Diagnosis [facility] [address] [address] 08/05/2025 Julian Cummings Bipolar disorder, current episode depressed, moderate F31.32 and Attention-deficit hyperactivity disorder, combined type F90.2 [facility] [address] [place] [address] 09/26/2024 Julian Cummings Attention-deficit hyperactivity disorder, combined type F90.2 and Bipolar disorder, current episode depressed, moderate F31.32 [facility] [address] [address] 12/06/2024 Julian Cummings Encounter for screen ing for cardiovascular disorders Z13.6 ; Encounter for screening for depression Z13.31 ; Attention-deficit hyperactivity disorder, combined type F90.2 and Bipolar disorder, current episode depressed, moderate F31.32 [facility], [facility] [address] [place] [address] 01/07/2025 Julian Cummings Encounter for screen ing for cardiovascular disorders Z13.6 ; Encounter for screening for depression Z13.31 ; Attention-deficit hyperactivity disorder, combined type F90.2 and Bipolar disorder, current episode depressed, moderate F31.32 [facility], [facility] [address] [place] [address] 02/19/2025 Julian Cummings Encounter for screen ing for cardiovascular disorders Z13.6 ; Encounter for screening for depression Z13.31 ; Attention-deficit hyperactivity disorder, combined type F90.2 and Bipolar disorder, current episode depressed, moderate F31.32 [facility], [facility] [address] [place] [address] 03/29/2025 Julian Cummings Attention-deficit hyperactivity disorder, combined type F90.2 and Bipolar disorder, current episode depressed, moderate F31.32 [facility], [facility] [address] [place] [address] 05/03/2025 Julian Cummings Bipolar disorder, current episode depressed, moderate F31.32 and Attention-deficit hyperactivity disorder, combined type F90.2 [facility], [facility] [address] [place] [address] 08/28/2024 Julian Cummings Attention-deficit hyperactivity disorder, combined type F90.2 [facility], [facility] [address] [place] [address] 09/03/2024 Julian Jonesoza [facility], [facility] [address] [place] [address] 10/31/2024 Julian Cummings [facility], [facility] [address] [place] [address] 01/07/2025 Julian Jonesoza [facility], [facility] [address] [place] [address] 01/21/2025 Julian Cummings [facility], [facility] [address] [place] [address] 10/31/2024 Julian Cummings Attention-deficit hyperactivity disorder, combined type F90.2 [facility] [address] [place] [address] 10/31/2024 Julian Cummings Attention-deficit hyperactivity disorder, combined type F90.2 [facility], [facility] [address] [place] [address] 05/03/2025 Julian Cummings Attention-deficit hyperactivity disorder, combined type F90.2 [facility], [facility] [address] [place] [address] 05/03/2025 Julian Cummings [facility], [facility] [address] [place] [address] 06/17/2025 Julian Cummings [facility], [facility] [address] [facility] [address] [place] [address] 06/17/2025 Julian Cummings [facility], [place] [address] [place] [address] 06/17/2025 Julian Cummings Attention-deficit hyperactivity disorder, combined type F90.2 [facility], [place] [address] [facility] [address] [place] [address] 06/18/2025 Julian Cummings [facility], [place] [address] [facility] [address] [place] [address] 07/10/2025 Julian Cummings Attention-deficit hyperactivity disorder, combined type F90.2 Assessments Encounter Date Diagnosis (ICD Code) Assessment Notes Treatment Notes Treatment Clinical Notes Section Notes 08/28/2024 Attention-defic it hyperactivity disorder, combined type (ICD-10 - F90.2) 10/31/2024 Attention-defic it hyperactivity disorder, combined type (ICD-10 - F90.2) 10/31/2024 Attention-defic it hyperactivity disorder, combined type (ICD-10 - F90.2) 03/29/2025 Bipolar disorder, current episode depressed, moderate (ICD-10 - F31.32) 03/29/2025 Attention-defic it hyperactivity disorder, combined type (ICD-10 - F90.2) 05/03/2025 Attention-defic it hyperactivity disorder, combined type (ICD-10 - F90.2) 06/17/2025 Attention-defic it hyperactivity disorder, combined type (ICD-10 - F90.2) 07/10/2025 Attention-defic it hyperactivity disorder, combined type (ICD-10 - F90.2) 08/05/2025 Bipolar disorder, current episode depressed, moderate (ICD-10 - F31.32) 01/07/2025 Encounter for screening for cardiovascular disorders (ICD-10 - Z13.6) 05/03/2025 Bipolar disorder, current episode depressed, moderate (ICD-10 - F31.32) 02/19/2025 Encounter for screening for cardiovascular disorders (ICD-10 - Z13.6) 12/06/2024 Encounter for screening for cardiovascular disorders (ICD-10 - Z13.6) 09/26/2024 Attention-defic it hyperactivity disorder, combined type (ICD-10 - F90.2) 1. Depression: - Patient reports feeling more depressed over the last 6 months. - Currently on Cymbalta 30 mg twice daily and Vraylar 3 mg. - Coin Purse Framer does not want to increase Vraylar due [...] bupropion and adjust dosage if necessary. 12/06/2024 Encounter for screening for depression (ICD-10 - Z13.31) 09/26/2024 Bipolar disorder, current episode depressed, moderate (ICD-10 - F31.32) 1. Depression: - Patient reports feeling more depressed over the last 6 months. - Currently on Cymbalta 30 mg twice daily and Vraylar 3 mg. - Coin Purse Framer does not want to increase Vraylar due [...] for screening for depression (ICD-10 - Z13.31) 08/05/2025 Attention-defic it hyperactivity disorder, combined type (ICD-10 [...] Of Treatment Next Appt Details Provider Name:Stacia butler, 11/05/2025 01:30:00 PM, [address], [address], [place], [address], Insurance Providers Payer Name Payer Address Payer Phone Subscriber Number Group Number Insured Name Patient Relationship to Insured Coverage Start Date Coverage End Date [employer] [address] [place] [address] [id number] IZABELA PARRA Self - patient is the insured Medicaid-[place] l Medicaid [address] [address] [place] [address] [id number] IZABELA PARRA Self - patient is the insured Medical (General) History Medical History History ICD Code Problems: Attention deficit hyperactivit y disorder, combined type Bipolar affective disorder, current epis ode depression , Surgical History Surgery Date(Month/Year) Other 09/19/1998 Hysterectomy (41117) 09/19/1999 Removal of gallbladder (13336) 1 Any surgical history 09/19/2009 Appendectomy (33110) 09/20/1993 Knee Surgery
--- OUTSIDE RECORDS SUMMARY | 2025-08-09 12:26 | XMS_ITS | Encounter Summary ---
Author Organization [facility] Address [address] [place] [address] Care Team Providers Care Cannery Worker Name Role Phone Raminedith Roland EVANS Primary Care Provider [phone] Encounter Details Date Type Department Care Team (Late st Contact Info) Description 08/05/2025 Orders Only [facility] [address] [facility] [place] [address] [place] [address] [place] [address] Social History Tobacco Use Types Packs/Day Years [...] any time in the past 12 m the rehabilitation institute, were you homeless or living in a senior care (including now)? No 07/18/2025 [facility] Utilities Answer Date Recorded In the past 12 months has th e electric, gas, oil, or water company threatened to shut off services in your home? No 07/18/2025 Comments No Sex and Gender Information Value Date Recorded Sex Assigned at Female 08/12/2020 10:34 AM INK TECHNICIAN Legal Sex Female 10:58 PM INK TECHNICIAN Gender Identity Female 08/12/2020 10:34 AM INK TECHNICIAN Sexual Orientation Straight 08/12/2020 10 :34 AM INK TECHNICIAN documented as of this encounter Functional Status [...] st Contact Info) Description 08/12/2025 12:00 PM INK TECHNICIAN Appointment [facility] [address] [place] [address] Jayda Witt, RN 08/19/2025 8:00 AM INK TECHNICIAN Appointment [facility] [address] [place] [address] Jayda Witt, RN 08/21/2025 2:40 PM INK TECHNICIAN Office Visit [facility] Medical [facility] Orthopedic Surgery [facility] [address] [address] [address] Kyler Ocas[place], [place] [address] [place] [address] 08/26/2025 9:00 AM INK TECHNICIAN Appointment [facility] [address] [place] [address] Jayda Witt RN 09/02/2025 2:00 PM INK TECHNICIAN Appointment [facility] [address] [place] [address] Jayda Witt RN 09/09/2025 11:00 AM INK TECHNICIAN Appointment [facility] [address] [place] [address] Jayda Witt, RN documented as of this encounter Results * (ABNORMAL) VANCOMYCIN TROUGH (08/05/2025 11:50 AM INK TECHNICIAN) [facility] VANCOMYCIN TROUGH 38.1(HH) 10.0 - 20.0 MCG/ML 08/05/2025 1:41 PM INK TECHNICIAN [facility] Comment: Critical Result(s) Called to and read back by: JAYDA JULIO RN at: 13:40:03 08/05/2025 by THEO. TOXIC LEVEL: >20 MCG/ML BLOOD VENOUS BLOOD SPECIMEN / Unknown 08/05/2025 11:50 AM INK TECHNICIAN us Ahsan Carreon DO LABORATORY Final Result [facility] [address] [place] [address], * (ABNORMAL) C-REACTIVE PROTEIN (08/05/2025 11:50 AM INK TECHNICIAN) [facility] C-REACTIVE PROTEIN 0.97(H) <0.30 mg/dL 08/05/2025 1:41 PM INK TECHNICIAN [facility] BLOOD VENOUS BLOOD SPECIMEN / Unknown 08/05/2025 11:50 AM INK TECHNICIAN us Ahsan Carreon DO LABORATORY Final Result [facility] [address] [place] [address], [place] [phone] * SED RATE, ERYTHROCYTE (ESR) (08/05/2025 11:50 AM INK TECHNICIAN) ESR 12 0 - 20 MM/HR 08/05/2025 1:31 PM INK TECHNICIAN [facility] BLOOD VENOUS BLOOD SPECIMEN / Unknown 08/05/2025 11:50 AM INK TECHNICIAN Ahsan Carreon DO LABORATORY Final Result [facility] [address] [place] [address], * (ABNORMAL) CBC W/DIFF (08/05/2025 11:50 AM INK TECHNICIAN) Pathologist [facility] WBC 5.09 4.00 - 10.80 x10'3/uL 08/05/2025 1:10 PM INK TECHNICIAN [facility] RBC 3.39(L) 4.10 - 5.40 x10'6/uL 08/05/2025 1:10 PM INK TECHNICIAN [facility] HGB 10.4(L) 12.0 - 16.0 G/DL 08/05/2025 1:10 PM INK TECHNICIAN [facility] HCT 29.9(L) 36.0 - 47.0 % 08/05/2025 1:10 PM INK TECHNICIAN [facility] MCV 88.2 78.0 - 100.0 FL 08/05/2025 1:10 PM INK TECHNICIAN [facility] MCH 30.7 27.0 - 31.0 PG 08/05/2025 1:10 PM INK TECHNICIAN [facility] MCHC 34.8 33.0 - 36.0 G/DL 08/05/2025 1:10 PM INK TECHNICIAN [facility] RDW 12.2 11.5 - 14.5 % 08/05/2025 1:10 PM INK TECHNICIAN [facility] PLT 263 150 - 350 x10'3/uL 08/05/2025 1:10 PM [facility] MPV 11.0(H) 7.4 - 10.4 FL 08/05/2025 1:10 PM INK TECHNICIAN [facility] CBC COMMENT NORMAL REFERENCE RANGE NOT ESTABLISHED FOR THE PROPORTIONAL LEUKOCYTE DIFFERENTIAL. 08/05/2025 1:10 PM INK TECHNICIAN [facility] NEUTROPHILS % 54.9 % 08/05/2025 1:10 PM INK TECHNICIAN [facility] LYMPHOCYTES % 30.6 % 08/05/2025 1:10 PM INK TECHNICIAN [facility] MONOCYTES % 9.8 % 08/05/2025 1:10 PM INK TECHNICIAN [facility] EOSINOPHILS % 3.3 % 08/05/2025 1:10 PM INK TECHNICIAN [facility] BASOPHILS % 1.0 % 08/05/2025 1:10 PM INK TECHNICIAN [facility] IMMATURE GRANS % 0.4 % 08/05/20 1:10 PM INK TECHNICIAN [facility] NRBC % 0.0 % 08/05/2025 1:10 PM INK TECHNICIAN [facility] ABS. NEUTROPHILS 2.79 1.60 - 8.30 x10'3/uL 08/05/2025 1:10 PM INK TECHNICIAN [facility] ABS. LYMPHOCYTES 1.56 0.80 - 4.70 x10'3/uL 08/05/2025 1:10 PM INK TECHNICIAN [facility] ABS. MONOCYTES 0.50 0.00 - 1.50 x10'3/uL 08/05/2025 1:10 PM INK TECHNICIAN [facility] ABS. EOSINOPHILS 0.17 0.00 - 0.40 x10'3/uL 08/05/2025 1:10 PM INK TECHNICIAN [facility] ABS. BASOPHILS 0.05 0.00 - 0.20 x10'3/uL 08/05/2025 1:10 PM INK TECHNICIAN [facility] ABS. IMMATURE GRANULOCYTES 0.02 0.00 - 0.03 x10'3/uL 08/05/2025 1:10 PM INK TECHNICIAN [facility] ABS. NUCLEATED RBC'S 0.00 0.00 - 0.01 x10'3/uL 08/05/2025 1:10 PM INK TECHNICIAN [facility] BLOOD VENOUS BLOOD SPECIMEN / Unknown 08/05/2025 11:50 AM INK TECHNICIAN Ahsan Carreon DO LABORATORY Final Result [facility] [address] [place] [address], * (ABNORMAL) BASIC METABOLIC PANEL (08/05/2025 11:50 AM INK TECHNICIAN) SODIUM S/P/B 142 136 - 145 MMOL/L 08/05/2025 1:41 PM INK TECHNICIAN [facility] POTASSIUM S/P/B 3.4(L) 3.5 - 5.1 MMOL/L 08/05/2025 1:41 PM [facility] CHLORIDE S/P/B 107 98 - 107 MMOL/L 08/05/2025 1:41 PM [facility] CO2 24.9 21.0 - 32.0 MMOL/L 08/05/2025 1:41 PM [facility] GLUCOSE 112(H) 70 - 99 MG/DL 08/05/2025 1:41 PM [facility] Comment: FASTING GLUCOSE 100 TO 125 MG/DL IS CONSISTENT WITH IMPAIRED FASTING GLUCOSE. FASTING GLUCOSE >125 MG/DL IS CONSISTENT WITH DIABETES. RANDOM GLUCOSE >200 MG/DL WITH HYPERGLYCEMIC SYMPTOMS IS CONSISTENT WITH DIABETES. PER ADA GUIDELINES BUN 12 6 - 24 MG/DL 08/05/2025 1:41 PM [facility] CREATININE S/P/B 2.18(H) 0.55 - 1.02 MG/DL 08/05/2025 1:41 PM [facility] CALCIUM S/P/B 8.8 8.4 - 10.5 MG/DL 08/05/2025 1:41 PM [facility] ANION GAP 10.1 5.0 - 15.0 MMOL/L 08/05/2025 1:41 PM [facility] OSMOLALITY (CALC) 295 MOSM/KG 025 1:41 PM [facility] Comment:REFERENCE RANGE NOT ESTABLISHED GFR ESTIMATE 26(L) >89 ML/MIN/1. 73 M2 08/05/2025 1:41 PM INK TECHNICIAN [facility] GFR NOTES GFR REFERENCE S: 08/05/2025 1:41 PM INK TECHNICIAN [facility] Comment: THE ESTIMATED GFR IS CALCULATED USING THE 2020 CKD-EPI EQUATION. THE FOLLOWING CATEGORIES FOR GRADING RENAL FUNCTION ARE RECOMMENDED BY THE INTERNATIONAL SOCIETY OF NEPHROLOGY (KDIGO 2012 CLINICAL PRACTICE GUIDELINE). G1,NORMAL OR HIGH: >89 ml/min/1.73 m2 G2,MILDLY DECREASED: 60-89 ml/min/1.73 m2 G3A,MILDLY TO MODERATELY DECREASED: 45-59 ml/min/1.73 m2 G3B,MODERATELY TO SEVERELY DECREASED: 30-44 ml/min/1.73 m2 G4,SEVERELY DECREASED: 15-29 ml/min/1.73 m2 G5,KIDNEY FAILURE: <15 ml/min/1.73 m2 BLOOD VENOUS BLOOD SPECIMEN / Unknown 08/05/2025 11:50 AM INK TECHNICIAN Ahsan Carreon DO LABORATORY Final Result Performing Organization Address City/State/[facility] Co de Phone Number [facility] [address] [place] [address], documented in this encounter Visit Diagnoses Diagnosis Septic arthritis ([facility])- Primary Pyogenic arthritis, site unspecified documented in this encounter Additional Health Concerns Assessment Noted Time PHQ-9 Depression Total Score: 0 07/17/20 25 2:34 PM CDT documented as of this encounter Care Teams Cannery Worker Relationship Specialty Start Date End Date Roland Rojas DO [address] [place] [address] PCP - General FAMILY PRACTICE 07/22/25 documented as of this encounter
--- OUTSIDE RECORDS SUMMARY | 2025-08-09 12:26 | XMS_ITS | Encounter Summary ---
Author Organization [facility] Address [address] [place] [address] Care Team Providers Care Putter In Name Role Phone Aneesh Dicekns MD Primary Care Provider [phone] Radha Kaminski NP Primary Care Provider [phone] Roland Rojas DO Primary Care Provider [phone] Encounter Details Date Type Department Care Team (Late st Contact Info) Description 05/19/2021 Prep for Procedure [facility] Services [address] [place] [address] Harley Phillips, DPSonia [address] [place] [phone] Social History Tobacco Use Types Packs/Day [...] Sex Assigned at Female 08/12/2020 10:34 AM OPERATIONS AND MAINTENANCE SPECIALIST Legal Sex Female 10:58 PM OPERATIONS AND MAINTENANCE SPECIALIST Gender Identity Female 08/12/2020 10:34 AM OPERATIONS AND MAINTENANCE SPECIALIST Sexual Orientation Straight 08/12/2020 10 :34 AM OPERATIONS AND MAINTENANCE SPECIALIST COVID-19 Exposure Response Date Recorded In the last month, have you been in contact with someone who was confirmed or suspected to have Coronavirus / COVID-19? No / Unsure 05/19/2021 3:46 PM CDT documented as of this encounter Plan of Treatment Upcoming Encounters Date Type Department Care Team (Late st Contact Info) Description 08/12/2025 12:00 PM OPERATIONS AND MAINTENANCE SPECIALIST Appointment [facility] [address] [place] [address] Marah Witt, RN 08/19/2025 8:00 AM OPERATIONS AND MAINTENANCE SPECIALIST Appointment [facility] [address] [place] [address] Marah Witt, RN 08/21/2025 2:40 PM OPERATIONS AND MAINTENANCE SPECIALIST Office Visit [facility] Medical Group Orthopedic Surgery [facility] [address] [address] [place] [address] Kyler Ocasio, COOLER SERVICE SUPERVISOR [address] [place] [address] 08/26/2025 9:00 AM OPERATIONS AND MAINTENANCE SPECIALIST Appointment [facility] [address] [place] [address] Marah Witt, RN 09/02/2025 2:00 PM OPERATIONS AND MAINTENANCE SPECIALIST Appointment [facility] [address] [place] [address] Marah Witt, RN 09/09/2025 11:00 AM OPERATIONS AND MAINTENANCE SPECIALIST Appointment [facility] [address] [place] [address] Marah Witt, RN documented as of this encounter Results * PRE-SURGICAL/PRE-PROCEDURE CORONAVIRUS (COVID 19) (05/23/2021 9:06 AM CDT) SPECIMEN SOURCE NASAL 8:58 AM CDT [facility] CORONAVIRUS SARS COV 2 PCR (RESP) NEGATIVE NEGATIVE 05/24/2021 11:44 AM CDT [facility] Comment: THE SARS-CoV-2 TEST HAS BEEN AUTHORIZED BY THE FDA UNDER AN EUA FOR USE BY AUTHORIZED LABORATORIES. PERFORMED BY NUCLEIC ACID AMPLIFICATION PCR FIRST TEST YES 05/23/2021 8:58 AM CDT [facility] EMPLOYED IN HEALTHCARE NO 05/23/2021 8:58 AM CDT [facility] SYMPTOMATIC DEFINED BY CDC NO 05/23/2021 8:58 AM CDT [facility] HOSPITALIZATION STATUS NO 05/23/2021 8:58 AM CDT [facility] PATIENT IN ICU NO 05/23/2021 8:58 AM CDT [facility] RESIDENT OF [facility] NO 05/23/2021 8:58 AM CDT [facility] NOT 05/23/2021 8:58 AM CDT [facility] NASAL STRUCTURE / Unknown 05/23/2021 9:06 AM CDT Harley Phillips DPM MICROBIOLOGY - GENERAL ORDERABLE S Final Result Performing Organization Address City/State/[facility] Co de Phone Number [facility] [address] [place] [address], [place] [phone] [facility] [address] [place] [address], [place] [phone] documented in this encounter Visit Diagnoses Diagnosis Pre-op testing- Primary Preoperative examination, unspecified documented in this encounter Additional Health Concerns Infection Onset Date Last Indicated Resolved Time COVID-19 Rule Out 05/23/2021 05/23/2021 05/24/2021 11:44 AM CDT COVID-19 Rule Out 04/09/2022 04/09/2022 04/11/2022 12:05 PM CDT documented as of this encounter Care Teams Putter In Relationship Specialty Start Date End Date Aneesh Dickens MD [address] [place] [address] PCP - General FAMILY PRACTICE 04/10/19 04/08/22 Radha Kaminski NP [facility] [place] [phone] PCP - General NURSE PRACTITIONER 04/09/22 07/21/25 Roland Rojas DO [address] [place] [address] PCP - General FAMILY PRACTICE 07/22/25 documented as of this encounter
--- OUTSIDE RECORDS SUMMARY | 2025-08-09 12:26 | XMS_ITS | Clinical Summary ---
Author Organization [facility] [address] [employer] Address [address] [place] [address] Care Team Providers Care Analytical Chemistry Teacher Name Role Phone Roland Rojas DO Primary [...] predniSONE (DELTASONE) 5 mg tablet 3 Active methylphenidat e HCl 72 mg tablet [...] 4 Active rosuvastatin (CRESTOR) 40 mg tablet TAKE 1 TABLET BY MOUTH EVERY DAY AT NIGHT 90 tablet 3 5 Active evolocumab (Repatha Syringe) syringe syringeIndicat ions:Coronary arterioscleros is,Dyslipidemi a INJECT 1 ML (140 MG TOTAL) UNDER THE SKIN EVERY 14 DAYS. 2 mL 6 5 Active magnesium oxide (MAG-OX) 400 mg (241.3 mg elemental magnesium) tabletIndicati ons:hypomagnes emia Take 1 tablet (400 mg total) by mouth daily 90 tablet 2 5 Active magnesium oxide (MAG-OX) 400 mg (241.3 mg elemental magnesium) tabletIndicati ons:hypomagnes emia Take 1 tablet (400 mg total) by mouth daily 90 tablet 5 07/25/20 25 Discontinu ed(Reorder ) Active Problems Problem Noted Date Diagnosed Date Obesity (BMI 30.0-34.9) 06/14/2025 Pain in joint involving ankle and foot Chronic pain syndrome 06/22/2023 Postlaminectomy syndrome 05/17/2023 Cervical radiculopathy 05/17/2023 Radiculopathy, lumbosacral region 05/17/2023 Coronary artery disease invo lving [place] coronary artery of [place] heart without angina pectoris 04/19/2023 Essential hypertension [...] (01/24/2024): Added automatically from request for surgery [id number] Nonspecific abnormal results of function study o [...] Description 06/14/2025 2:30 PM CDT Office Visit [facility] Medical Group Cardiology at [address] [place] [address] Rhett Ramírez MD Coronary artery disease involving [place] coronary artery of [place] heart without angina pectoris (Primary Dx); Hyperlipidemia [...] on file Legal Sex Female 7:45 PM HEAD ESTHETICIAN Gender Identity Not on file Sexual Orientation [...] BLOOD ORDERABLES Final Re sult AMANUEL LOPEZ [address] [facility] Department [place] [address] from Last 3 Months or Most Recently Relevant to Health Maintenance Insurance [employer] OPEN ACCESS CIGNA OPEN ACCESS IDPA CIGNA OPEN ACCESS CIGNA OPEN ACCESS Care Teams Analytical Chemistry Teacher Relationship Specialty Start Date End Date Roland Rojas DO [address] [place] [address] PCP - General Family Medicine 01/24/24
--- OUTSIDE RECORDS SUMMARY | 2025-08-09 12:26 | XMS_ITS | Encounter Summary ---
Author Organization [facility] Address [address] [place] [address] Care Team Providers Care Dental Chairside Assistant Name Role Phone Aneesh Dickens MD Primary Care Provider [phone] Radha Kaminski NP Primary Care Provider [phone] Roland Rojas DO Primary Care Provider [phone] Encounter Details Date Type Department Care Team (Late st Contact Info) Description 04/07/2022 Prep for Procedure [facility] Services [address] [place] [address] Harley Phillips, DPSonia [address] [place] [phone] Social History Tobacco Use Types Packs/Day [...] Sex Assigned at Female 08/12/2020 10:34 AM SAMPLER TESTER Legal Sex Female 10:58 PM SAMPLER TESTER Gender Identity Female 08/12/2020 10:34 AM SAMPLER TESTER Sexual Orientation Straight 08/12/2020 10 :34 AM SAMPLER TESTER COVID-19 Exposure Response Date Recorded In the last 10 days, have yo u been in contact with someone who was confirmed or suspected to have Coronavirus/COVID-19? No / Unsure 04/09/2022 12:05 PM CDT documented as of this encounter Plan of Treatment Upcoming Encounters Date Type Department Care Team (Late st Contact Info) Description 08/12/2025 12:00 PM SAMPLER TESTER Appointment [facility] [address] [place] [address] Marah Witt, RN 08/19/2025 8:00 AM SAMPLER TESTER Appointment [facility] [address] [place] [address] Marah Witt, RN 08/21/2025 2:40 PM SAMPLER TESTER Office Visit [facility] Medical Group Orthopedic Surgery [facility] [address] [place] [address] Kyler Ocasio, [place] [address] [place] [address] 08/26/2025 9:00 AM SAMPLER TESTER Appointment [facility] [address] [place] [address] Marah Witt, RN 09/02/2025 2:00 PM SAMPLER TESTER Appointment [facility] [address] [place] [address] Marah Witt, RN 09/09/2025 11:00 AM SAMPLER TESTER Appointment [facility] [address] [place] [address] Marah Witt, RN documented as of this encounter Visit Diagnoses Diagnosis Pre-op testing- Primary Preoperative examination, unspecified documented in this encounter Additional Health Concerns Infection Onset Date Last Indicated Resolved Time COVID-19 Rule Out 04/09/2022 04/09/2022 04/11/2022 12:05 PM CDT Assessment Noted Time PHQ-9 Depression Total Score: 0 08/12/20 2:09 PM SAMPLER TESTER documented as of this encounter Care Teams Dental Chairside Assistant Relationship Specialty Start Date End Date Aneesh Dickens MD [address] [place] [address] PCP - General FAMILY PRACTICE 04/10/19 04/08/22 Radha Kaminski NP [facility] [facility] [place] [phone] PCP - General NURSE PRACTITIONER 04/09/22 07/21/25 Roland Rojas DO [facility] [place] [address] PCP - General FAMILY PRACTICE 07/22/25 documented as of this encounter
--- OUTSIDE RECORDS SUMMARY | 2025-08-09 12:26 | XMS_ITS | Encounter Summary ---
Author Organization [facility] Address [address] [place], [place] [id number] Care Team Providers Care Pulmonology Physician Name Role Phone Roland Rojas DO Primary Care Provider [phone] Reason for Referral * Consultation (Urgent) - New Request Specialty Diagnoses / Procedures Referred By Contac t Referred To Contact INFECTIOUS DISEASE Diagnoses Pyogenic arthritis of right knee joint, due to unspecified organism (CMS/HCC [facility]) Effusion of right knee Status post arthroscopy of right knee Procedures OFFICE/OUTPATIENT NEW LOW MDM 30-44 MINUTES OFFICE/OUTPT VISIT,NEW,LEVL IV OFFICE/OUTPT VISIT,NEW,LEVL V OFFICE/OUTPT VISIT,EST,LEVL III OFFICE/OUTPT VISIT,EST,LEVL IV OFFICE/OUTPT VISIT,[place] [address] [place] [address] Phone: tel: fax: Artem Esposito MD [address] [place] [id number] Phone: tel: fax: Referral ID Status Reason Start Date Expiration Date Visits Requested Visits Authorized [id number] New Request Specialty Services 09/08/2026 1 1 WARE SYSTEMS ENGINEER Encounter Details Date Type Department Care Team (Late st Contact Info) Description 08/08/2025 Orders Only [facility] Orthopedic Surgery-[place] [address] [place] [address] [place] Ocasio, [place] [address] [place] [phone] Social History Tobacco Use Types Packs/Day Years [...] any time in the past [address] [facility], were you homeless or living in a correction (including now)? No 07/18/2025 [facility] Utilities Answer Date Recorded In the past 12 months has th e electric, gas, oil, or water company threatened to shut off services in your home? No 07/18/2025 Comments No Sex and Gender Information Value Date Recorded Sex Assigned at Female 08/12/2020 10:34 AM SOFTWARE SYSTEMS ENGINEER Legal Sex Female 10:58 PM SOFTWARE SYSTEMS ENGINEER Gender Identity Female 08/12/2020 10:34 AM SOFTWARE SYSTEMS ENGINEER Sexual Orientation Straight 08/12/2020 10 :34 AM SOFTWARE SYSTEMS ENGINEER documented as of this encounter Functional Status [...] PM Jason Mclean R N Active * Because of a [...] st Contact Info) Description 08/12/2025 12:00 PM SOFTWARE SYSTEMS ENGINEER Appointment [place] [address] [place] [address] Marah Witt, RN 08/19/2025 8:00 AM SOFTWARE SYSTEMS ENGINEER Appointment [place] [address] [place] [address] Marah Witt, RN 08/21/2025 2:40 PM SOFTWARE SYSTEMS ENGINEER Office Visit [facility] Orthopedic Surgery [facility] [id number] [address] [address] [place], [place] [address] [place] [address] 08/26/2025 9:00 AM SOFTWARE SYSTEMS ENGINEER Appointment [place] [address] [place] [address] Marah Witt, RN 09/02/2025 2:00 PM SOFTWARE SYSTEMS ENGINEER Appointment [place] [address] [place] [address] Marah Witt, RN 09/09/2025 11:00 AM SOFTWARE SYSTEMS ENGINEER Appointment [place] [address] [place] [address] Marah Witt, RN Scheduled Referrals Name Type Priority Associated Diagnoses Orde r Schedule Ambulatory referral to Infectious Disease (OTHER) Referral Routine Pyogenic arthritis of right knee joint, due to unspecified organism ([facility]) Effusion of right knee Status post arthroscopy of right knee Ordered: 08/08/2025 documented as of this encounter Visit Diagnoses Diagnosis Pyogenic arthritis of right knee joint, due to unspecified organism ([facility]/HCC [facility])- Primary Effusion of right knee Effusion of lower leg joint Status post arthroscopy of right knee Other postprocedural status documented in this encounter Additional Health Concerns Assessment Noted Time PHQ-9 Depression Total Score: 0 07/17/20 25 2:34 PM CDT documented as of this encounter Care Teams Pulmonology Physician Relationship Specialty Start Date End Date Roland Rojas DO [address] [place] [address] PCP - General FAMILY PRACTICE 07/22/25 documented as of this encounter
--- OUTSIDE RECORDS SUMMARY | 2025-08-09 12:26 | XMS_ITS | Clinical Summary ---
Author Organization [facility] Address [facility] [place] [address] Care Team Providers Care It Data Architect Name Role Phone FelipaRoland haile DO Primary Care Provider [phone] Allergies Active Allergy Reactions Criticality Noted Date Comments Ciprofloxacin Rash Medium 08/08/2023 Prochlorperazine Shortness of Breath, Other (see comment) High 11/26/2016 [place] Medications aspirin 81 MG tabletIndications :heart Take 1 tablet by mouth nightly at bedtime. Indications: heart Active fluticasone propionate 50 MCG/ACT nasal sprayIndications: sinus 1 spray by Each Nostril route 2 (two) times daily. Indications: sinus Active montelukast 10 MG tabletIndications :allergy Take 1 tablet by mouth nightly at bedtime. Indications: allergy Active Blood Glucose Monitoring Suppl w/Device KitIndications:Un controlled type 2 diabetes mellitus with hyperglycemia ([facility]) Use to test blood sugars three times daily 1 kit 09/05/20 19 Active icosapent ethyl 1 G capsuleIndication s:fish oil Take 2 capsules by mouth 2 (two) times daily. Indications: fish oil Takes at noon and in the evening. Active buPROPion XL (WELLBUTRIN XL) 150 MG 24 hr tabletIndications :mood Take 1 tablet by mouth daily with lunch. Indications: mood Active oxyCODONE immediate release (ROXICODONE) 5 MG immediate release tabletIndications :Acute Pain < 7 Day Supply Take 1 tablet (5 mg total) by mouth every 4 (four) hours as needed. Indications: Acute Pain < 7 Day Supply 20 tablet 04/13/20 22 Active methylphenidate CR (CONCERTA) 36 MG tabletIndications :attention Take 1 tablet by mouth every morning. Indications: attention 08/17/20 22 Active magnesium oxide (MAG-OX) 400 (240 Mg) MG tabletIndications :supplement Take 1 tablet by mouth every evening. Indications: supplement 11/18/19 23 Active ONETOUCH ULTRA test stripIndications: Uncontrolled type 2 diabetes mellitus with hyperglycemia (CMS/HCC HHS/HCC) USE TO TEST THREE TIMES A DAY 300 strip 3 02/25/20 23 Active VRAYLAR 3 MG capsuleIndication s:mood Take 1 capsule by mouth daily with lunch. Indications: mood 06/20/20 23 Active cyclobenzaprine (FLEXERIL) 10 MG tabletIndications :muscle spasm Take 1 tablet by mouth 3 (three) times daily as needed. Indications: muscle spasm Active furosemide (LASIX) 20 MG tabletIndications :diuretic Take 1 tablet by mouth as needed. Indications: diuretic 01/18/20 24 Active minoxidil (LONITEN) 2.5 MG tabletIndications :hair Take 0.5 tablets (1.25 mg total) by mouth daily. Indications: hair 01/30/20 24 Active cyanocobalamin (B-12) 1000 MCG/ML injectionIndicati ons:supplement Inject 1 mL into the muscle every 30 (thirty) days. Indications: supplement Takes on Saturdays08/01/20 24 Active estrogens, conjugated, (PREMARIN) 1.25 MG tabletIndications :supplement Take 1 tablet by mouth daily. Indications: supplement 07/15/20 25 Active REPATHA 140 MG/ML injection (SYRINGE)Indicati ons:cholesterol 1 mL every 14 (fourteen) days. Indications: cholesterol 07/08/20 25 Active levothyroxine (SYNTHROID) 50 MCG tabletIndications :thyroid Take 1 tablet by mouth every morning. Indications: thyroid Tries to take around 4-6 AM before meals. 02/02/20 25 Active predniSONE (DELTASONE) 5 mg tabletIndications :steroid Take 1 tablet by mouth daily. Indications: steroid 07/15/20 25 Active rimegepant (NURTEC) 75 MG disintegrating tabletIndications :migraine Take 1 tablet by mouth daily as needed for Migraine (If needed, takes at noon.). Indications: migraine 07/15/20 25 Active B-D 3CC LUER-KWAKU SYR 25GX1 25G X 1 3 ML Misc USE DIRECTED FOR INJECTIONS 07/11/20 Active MOUNJARO 7.5 MG/0.5ML injectionIndicati ons:Diabetes Mellitus Inject 7.5 mg into the skin once a week. Indications: Diabetes Takes on Saturdays07/01/20 25 Active topiramate (TOPAMAX) 25 MG tabletIndications :migraine Take 1 tablet by mouth daily. Indications: migraine 07/15/20 25 Active gabapentin (NEURONTIN) 300 MG capsuleIndication s:pain Take 1 capsule by mouth daily with lunch. Indications: pain Active gabapentin (NEURONTIN) 600 MG tabletIndications :pain Take 1 tablet by mouth nightly at bedtime. Indications: pain Active lamoTRIgine (LAMICTAL) 100 MG tabletIndications :mood Take 1 tablet by mouth daily with lunch. Indications: mood Active rosuvastatin (CRESTOR) 40 MG tabletIndications :cholesterol Take 1 tablet by mouth nightly at bedtime. Indications: cholesterol Active allopurinol (ZYLOPRIM) 100 MG tabletIndications :gout Take 1 tablet (100 mg total) by mouth daily for 30 days. Indications: gout 30 tablet 07/22/20 025 Active sodium chloride 0.9 % SOLN 500 mL with vancomycin 1 g SOLR 1,750 mgIndications:sep tic joint [The details of the medication are not available because there are pending changes by a home health clinician.] 21 vial 07/24/20 025 Active Additional Information Patient not taking.Reason: Physican Directed (Held 08/05-08/07/25 then dose changed), Reported on 08/07/2025 heparin lock flush 10 UNIT/ML injectionIndicati ons:line maint Inject 5 mLs into the vein daily. Indications: line maint 07/24/20 Active normal saline 0.9 % injectionIndicati ons:liner replacer Inject 5-10 mLs into the vein see administration instructions. Inject 5-10 mLs into the vein daily Indications: liner replacer 07/24/20 Active Vancomycin HCl in NaCl 1-0.9 GM/200ML-% SolutionIndicatio ns:Septic Arthritis of Left Knee Inject 1,000 mg into the vein daily. Indications: Septic Arthritis of Left Knee 11/ Active Cetirizine HCl (ZYRTEC ALLERGY) 10 MG Cap Take by mouth as needed. Disconti nued(Err or) estradiol 2 MG tablet Take 1 tablet (2 mg total) by mouth daily. 10/18/19 21 Disconti nued(Err or) gabapentin (NEURONTIN) 300 MG capsuleIndication s:Type 2 diabetes mellitus with diabetic autonomic neuropathy, without long-term current use of insulin ([facility] HHS/HCC) TAKE 1 CAPSULE THREE TIMES A DAY 270 capsule 3 01/22/20 Disconti nued(Err or) rosuvastatin (CRESTOR) 20 MG tablet Take 2 tablets (40 mg total) by mouth every evening. Disconti nued(Err or) clobetasol (TEMOVATE) 0.05 % cream RUB IN WELL TWICE A DAY TO INVOLVED AREAS OF BODY UNTIL CLEAR 06/06/20 23 Disconti nued(Err or) triamcinolone (KENALOG) 0.1 % cream Apply topically 2 (two) times daily. Disconti nued(Err or) mupirocin (BACTROBAN) 2 % ointment 1 APPLIC TOPICALLY TWICE A DAY INTRANASAL 01/09/20 24 Disconti nued(Err or) dulaglutide (TRULICITY) 3 MG/0.5ML injectionIndicati ons:Uncontrolled type 2 diabetes mellitus with hyperglycemia ([facility]HS/[facility]) Inject 3 mg into the skin once a week. 2 mL 6 09/06/20 24 Disconti nued(Err or) DULoxetine (CYMBALTA) 30 MG capsule 08/26/20 24 Disconti nued(Err or) VANCOMYCIN HCL IN NACL IVIndications:Sep tic Arthritis of Right Knee Inject 1,750 mg into the vein daily. Indications: Septic Arthritis of Right Knee 07/24/20 Disconti nued(Dup licate Med) Active Problems Problem Noted Date Diagnosed Date Septic arthritis 07/18/2025 S/P peroneal tendon repair 12/22/2022 Traumatic rupture of peronea l tendon, right, subsequent encounter 11/04/2022 Overview (11/04/2022): Added automatically from request for surgery [id number] Right peroneal tendonosis 05/07/2022 Aortic valve regurgitation [...] Encounters Date Type Department Care Team Description 08/09/2025 11:45 AM HEALTH CARE / MEDICAL JOB TITLES Home Care Visit [facility] [address] [place] [address] Marah Witt, RN SN HOME VISIT 08/08/2025 Orders Only [facility] [address] [place] [address] Kyler Ocasio NP 08/07/2025 11:30 AM HEALTH CARE / MEDICAL JOB TITLES Home Care Visit [facility] [address] [place] [address] Marah Witt, RN SN HOME VISIT 08/06/2025 1:00 PM HEALTH CARE / MEDICAL JOB TITLES Office Visit [facility] Orth[facility] [address] [address] [address] Kyler Ocasio NP Postop Followup (Right Knee Arthroscopy with Debridement and Lavage 07/19/25) 08/06/2025 10:00 AM HEALTH CARE / MEDICAL JOB TITLES Home Care Visit [facility] [address] [place] [address] Marah Witt, RN SN HOME VISIT 08/06/2025 Travel 08/05/2025 1:02 PM HEALTH CARE / MEDICAL JOB TITLES - 08/05/2025 11:59 PM HEALTH CARE / MEDICAL JOB TITLES Hospital Encounter [facility] [address] [place] [address] Ahsan Carreon DO Discharge Disposition: Home or Self Care (Routine Discharge) 08/05/2025 12:15 PM HEALTH CARE / MEDICAL JOB TITLES Home Care Visit [facility] [address] [place] [address] Marah Witt, RN SN HOME VISIT 08/05/2025 Telephone [facility] Medical [facility] [address] [address] [place] [address] Ahsan Carreon DO Information 08/05/2025 Orders Only [facility] [address] [place] [address] Ahsan Carreon DO 07/29/2025 12:15 PM HEALTH CARE / MEDICAL JOB TITLES Home Care Visit [facility] [address] [place] [address] Marah Witt, RN SN HOME VISIT 07/29/2025 Scan Leaky INFO SRVCS Scanned, [facility] (SCAN) 07/24/2025 12:00 PM HEALTH CARE / MEDICAL JOB TITLES Home Care Visit [facility] [address] [place] [address] Diana Ahn, RN SN OASIS START OF CARE 07/24/2025 Plan of Care Documentation [facility] [address] [place] [address] 07/22/2025 8:30 AM HEALTH CARE / MEDICAL JOB TITLES Home Care Visit [facility] [address] [place] [address] Delma Kaur RN LIAISON TELEPHONE CALL 07/19/2025 10:07 AM CDT Anesthesia Event [facility] [address] [place] [address] Mariluz Urrutia, [place] MD 07/19/2025 10:00 AM CDT - 07/19/2025 10:[address] [facility] [place] [address] [facility] [place] [address] Ahsan Carreon DO RIGHT KNEE ARTHROSCOPY WITH DEBRIDEMENT AND LAVAGE 07/18/2025 3:12 PM CDT - 07/23/2025 2:27 PM HEALTH CARE / MEDICAL JOB TITLES Hospital Encounter [facility] Medical/Surgical [address] [place] [address], [place] [address] Anais Malhotra MD Suresh, MD Austin Brand Rhonda, PA Engele, Christopher, APRN Joint Pain Discharge Disposition: Home with Home Health Care 07/18/2025 Travel 07/18/2025 Results Follow-Up [facility] [address] [place] [address] Stephanie Pal LPN CULTURE, BODY FLUID W/ GRAM STAIN 07/17/2025 5:35 PM CDT - 07/17/2025 11:59 PM CDT Hospital Encounter [facility] [address] [place] [address], [place] [address] Kyler Ocasio NP Discharge Disposition: Home or Self Care (Routine Discharge) 07/17/2025 2:00 PM CDT Office Visit [facility] [address] [place] [address] Klyer Ocasio NP Knee Pain (Right Knee Pain) 07/17/2025 Scan [employer] HEALTH INFO SRVCS Scanned, [facility] 07/17/2025 Orders Only [facility] [address] [place] [address] Kyler Ocasio, [place] 07/17/2025 Travel from Last [...] any time in the past 12 m [facility], were you homeless or living in a jail (including now)? No 07/18/2025 [facility] Utilities Answer Date Recorded In the past 12 months has th e electric, gas, oil, or water company threatened to shut off services in your home? No 07/18/2025 Comments No Sex and Gender Information Value Date Recorded Sex Assigned at Female 08/12/2020 10:34 AM HEALTH CARE / MEDICAL JOB TITLES Legal Sex Female 10:58 PM HEALTH CARE / MEDICAL JOB TITLES Gender Identity Female 08/12/2020 10:34 AM HEALTH CARE / MEDICAL JOB TITLES Sexual Orientation Straight 08/12/2020 10 :34 AM HEALTH CARE / MEDICAL JOB TITLES Last Filed Vital Signs Vital Sign Reading Time Taken Comments Blood Pressure 128/62 08/06/2025 1:07 PM HEALTH CARE / MEDICAL JOB TITLES Pulse 84 08/06/2025 1:07 PM HEALTH CARE / MEDICAL JOB TITLES Temperature 36.7 C (98 F) 08/06/2025 1:07 PM HEALTH CARE / MEDICAL JOB TITLES Respiratory Rate 18 08/06/2025 10:11 AM HEALTH CARE / MEDICAL JOB TITLES Oxygen Saturation 100% 08/06/2025 1:07 PM HEALTH CARE / MEDICAL JOB TITLES Inhaled Oxygen Concentration - - Weight 88.5 kg (195 lb 3.2 oz) 08/06/2025 1:07 P M HEALTH CARE / MEDICAL JOB TITLES Height 170.2 cm (5' 7) 08/06/2025 1:07 PM HEALTH CARE / MEDICAL JOB TITLES Body Mass Index 30.57 08/06/2025 1:07 PM HEALTH CARE / MEDICAL JOB TITLES Plan of Treatment Upcoming Encounters Date Type Department Care Team (Late st Contact Info) Description 08/12/2025 12:00 PM HEALTH CARE / MEDICAL JOB TITLES Appointment [facility] [address] [place] [address] Marah Witt RN 08/19/2025 8:00 AM HEALTH CARE / MEDICAL JOB TITLES Appointment [facility] [address] [place] [address] Marah Witt, RN 08/21/2025 2:40 PM HEALTH CARE / MEDICAL JOB TITLES Office Visit [facility] Medical Group Orthopedic Surgery - [place] [address] [address] [place] [address] Kyler Ocasio, FINANCIAL SUPERVISOR [address] [place] [address] 08/26/2025 9:00 AM HEALTH CARE / MEDICAL JOB TITLES Appointment [facility] [address] [place] [address] Marah Witt, RN 09/02/2025 2:00 PM HEALTH CARE / MEDICAL JOB TITLES Appointment [facility] [address] [place] [address] Marah Witt, RN 09/09/2025 11:00 AM HEALTH CARE / MEDICAL JOB TITLES Appointment [facility] [address] [place] [address] Marah Witt, RN Health Maintenance Due Date [...] 08/27/2022, Additional history exists COVID-19 Vaccine ( - 2024- season) 2025 Influenza Adult (#1) 2025 Diabetes: Retinopathy Eye Exam 06/20/2025 06/20/2023 Lipid Panel 06/14/2026 06/14/2025, 08/23/2024 PHQ-2 (Physician Ryan) Completed 07/17/2025 Hepatitis A Vaccines Aged Out [...] Recommended Domains Addressed Status Status Reason/Outcome Date/Time [facility] - Veterans Assistance Commission Government Benefits, Help Understanding Government Programs Financial Resource Strain In Use 07/19/2025 7:56 AM CD[facility] Government Programs Financial Resource Strain In Use 07/19/2025 7:56 AM CDT [facility] Benefits Financial Resource Strain In Use 07/19/2025 7:56 AM CD[address] [facility] Prescription Assistance Financial Resource Strain In Use 07/19/2025 7:56 AM CDT [employer] [facility] Book Assistance Financial Resource Strain In Use 07/19/2025 7:56 AM CDT from Last 12 Months Medical Devices Implanted Type Area Tree Expert Device Identifier Shelf Expiration Date Model / Serial / Lot [place]a Suture Arthrex Dx Fibertak Needle Sterile Latex Free - [id number] Implanted:Qty: 1 on 05/26/2021 by Harley Phillips DPM at [facility] [employer] [id number] 11/16/2025 [id number] / / [id number] Cage Cage Spine Cervical Cage Cage Spine Lumbar Screw Screw Left: Knee Stimulator Stimulator Implant Description:ORDISSIMOtronic InterS jade implant Decellurized Dermis Implanted:Qty: 1 on 05/26/2021 by Harley Phillips DPM at [facility] [id number] 08/07/2023 / / [id number] Implant Peroneus Longus Allosource - [id number] Implanted:Qty: 1 on 11/26/2022 by Harley Phillips DPM at [facility] Right: Ankle [employer] [id number] 10/10/2027 [id number] / / [id number] Flex Band Dynamic Matrix Implanted:Qty: 1 on 11/26/2022 by Harley Phillips DPM at [facility] Right: Ankle [id number] 08/18/2026 [id number] / [id number] / [id number] Description:Company abelon Flexband Dynamic Matrix Implanted:Qty: 1 on 11/26/2022 by Harley Phillips DPM at [facility] Right: Ankle [id number] 08/18/2026 [id number] / [id number] / Description:artelon company Procedures Procedure Name Priority Date/Time Associated Diagnosis Comments BASIC METABOLIC PANEL Routine 08/05/2025 11:50 AM HEALTH CARE / MEDICAL JOB TITLES Septic arthritis ([facility] HHS/HCC) HC CBC AUTO W/AUTO DIFF Routine 08/05/2025 11:50 AM HEALTH CARE / MEDICAL JOB TITLES Septic arthritis ([facility] HHS/HCC) SED RATE, ERYTHROCYTE (ESR) Routine 08/05/2025 11:50 AM HEALTH CARE / MEDICAL JOB TITLES Septic arthritis ([facility]/HCC HHS/HCC) C-REACTIVE PROTEIN Routine 08/05/2025 11 :50 AM HEALTH CARE / MEDICAL JOB TITLES Septic arthritis ([facility]/HCC HHS/HCC) VANCOMYCIN TROUGH Routine 08/05/2025 11: 50 AM HEALTH CARE / MEDICAL JOB TITLES Septic arthritis ([facility]/HCC HHS/HCC) OUTSIDE LAB (SCAN ORDER) 07/29/2025 OUTSIDE LAB (SCAN ORDER) 07/29/2025 OUTSIDE LAB (SCAN ORDER) 07/29/2025 POCT GLUCOSE - DOCKED DEVICE Routine 07/23/2025 11:35 AM HEALTH CARE / MEDICAL JOB TITLES POCT GLUCOSE - DOCKED DEVICE Routine 07/23/2025 8:03 AM HEALTH CARE / MEDICAL JOB TITLES COMPREHENSIVE METABOLIC PANEL Routine 07/23/2025 4:00 AM HEALTH CARE / MEDICAL JOB TITLES CBC, AUTO, NO DIFF Routine 07/23/2025 4: 00 AM HEALTH CARE / MEDICAL JOB TITLES VANCOMYCIN Routine 07/23/2025 4:00 AM HEALTH CARE / MEDICAL JOB TITLES C-REACTIVE PROTEIN Routine 07/23/2025 4: 00 AM HEALTH CARE / MEDICAL JOB TITLES POCT GLUCOSE - DOCKED DEVICE Routine 07/22/2025 7:24 PM HEALTH CARE / MEDICAL JOB TITLES POCT GLUCOSE - DOCKED DEVICE Routine 07/22/2025 4:17 PM HEALTH CARE / MEDICAL JOB TITLES POCT GLUCOSE - DOCKED DEVICE Routine 07/22/2025 10:58 AM HEALTH CARE / MEDICAL JOB TITLES POCT GLUCOSE - DOCKED DEVICE Routine 07/22/2025 7:54 AM HEALTH CARE / MEDICAL JOB TITLES COMPREHENSIVE METABOLIC PANEL Routine 07/22/2025 4:30 AM HEALTH CARE / MEDICAL JOB TITLES CBC W/DIFF AUTOMATED Routine 07/22/2025 4:30 AM HEALTH CARE / MEDICAL JOB TITLES VANCOMYCIN Routine 07/22/2025 4:30 AM HEALTH CARE / MEDICAL JOB TITLES C-REACTIVE PROTEIN Routine 07/22/2025 4: 30 AM HEALTH CARE / MEDICAL JOB TITLES POCT GLUCOSE - DOCKED DEVICE Routine 07/21/2025 9:13 PM HEALTH CARE / MEDICAL JOB TITLES POCT GLUCOSE - DOCKED DEVICE Routine 07/21/2025 4:18 PM HEALTH CARE / MEDICAL JOB TITLES POCT GLUCOSE - DOCKED DEVICE Routine 07/21/2025 11:02 AM HEALTH CARE / MEDICAL JOB TITLES POCT GLUCOSE - DOCKED DEVICE Routine 07/21/2025 8:14 AM HEALTH CARE / MEDICAL JOB TITLES HC VANCOMYCIN Routine 07/21/2025 5:25 AM HEALTH CARE / MEDICAL JOB TITLES HC C-REACTIVE PROTEIN Routine 07/21/2025 5:25 AM HEALTH CARE / MEDICAL JOB TITLES HC COMPREHENSIVE METABOLIC PANEL Routine 07/21/2025 5:25 AM HEALTH CARE / MEDICAL JOB TITLES HC CBC AUTO W/AUTO DIFF Routine 07/21/2025 5:25 AM HEALTH CARE / MEDICAL JOB TITLES POCT GLUCOSE - DOCKED DEVICE Routine 07/20/2025 [...] Uncontrolled type 2 diabetes mellitus with hyperglycemia ([facility]/HCC HHS/HCC) DIABETIC RETINOPATHY EXAM (NEGATIVE)(SCAN ORDER) Routine 06/20/2023 from Last 3 Months or Most Recently Relevant to Health Maintenance Results * (ABNORMAL) VANCOMYCIN TROUGH (08/05/2025 11:50 AM HEALTH CARE / MEDICAL JOB TITLES) Pathologist [facility] VANCOMYCIN TROUGH 38.1(HH) 10.0 - 20.0 MCG/ML 08/05/2025 1:41 PM HEALTH CARE / MEDICAL JOB TITLES [facility] Comment: Critical Result(s) Called to and read back by: MARAH JULIO RN at: 13:40:03 08/05/2025 by THEO. TOXIC LEVEL: >20 MCG/ML BLOOD VENOUS BLOOD SPECIMEN / Unknown 08/05/2025 11:50 AM HEALTH CARE / MEDICAL JOB TITLES Ahsan Carreon DO LABORATORY Final Result Performing Organization Address [facility] Co de Phone Number [facility] [address] [place] [id number], * SED RATE, ERYTHROCYTE (ESR) (08/05/2025 11:50 AM HEALTH CARE / MEDICAL JOB TITLES) Pathologist [facility] ESR 12 0 - 20 MM/HR 08/05/2025 1:31 PM HEALTH CARE / MEDICAL JOB TITLES [facility] BLOOD VENOUS BLOOD SPECIMEN / Unknown 08/05/2025 11:50 AM HEALTH CARE / MEDICAL JOB TITLES Ahsan Carreon DO LABORATORY Final Result Performing Organization Address City/[facility]/ZIP Co de Phone Number [facility] [address] [place] [address], * (ABNORMAL) CBC W/DIFF (08/05/2025 11:50 AM HEALTH CARE / MEDICAL JOB TITLES) WBC 5.09 4.00 - 10.80 x10'3/uL 08/05/2025 1:10 PM HEALTH CARE / MEDICAL JOB TITLES [facility] RBC 3.39(L) 4.10 - 5.40 x10'6/uL 08/05/2025 1:10 PM HEALTH CARE / MEDICAL JOB TITLES [facility] HGB 10.4(L) 12.0 - 16.0 G/DL 08/05/2025 1:10 PM HEALTH CARE / MEDICAL JOB TITLES [facility] HCT 29.9(L) 36.0 - 47.0 % 08/05/2025 1:10 PM HEALTH CARE / MEDICAL JOB TITLES [facility] MCV 88.2 78.0 - 100.0 FL 08/05/2025 1:10 PM HEALTH CARE / MEDICAL JOB TITLES [facility] MCH 30.7 27.0 - 31.0 PG 08/05/2025 1:10 PM HEALTH CARE / MEDICAL JOB TITLES [facility] MCHC 34.8 33.0 - 36.0 G/DL 08/05/2025 1:10 PM HEALTH CARE / MEDICAL JOB TITLES [facility] RDW 12.2 11.5 - 14.5 % 08/05/2025 1:10 PM HEALTH CARE / MEDICAL JOB TITLES [facility] PLT 263 150 - 350 x10'3/uL 08/05/2025 1:10 PM HEALTH CARE / MEDICAL JOB TITLES [facility] MPV 11.0(H) 7.4 - 10.4 FL 08/05/2025 1:10 PM HEALTH CARE / MEDICAL JOB TITLES [facility] CBC COMMENT NORMAL REFERENCE RANGE NOT ESTABLISHED FOR THE PROPORTIONAL LEUKOCYTE DIFFERENTIAL. 08/05/2025 1:10 PM HEALTH CARE / MEDICAL JOB TITLES [facility] NEUTROPHILS % 54.9 % 08/05/2025 1:10 PM HEALTH CARE / MEDICAL JOB TITLES [facility] LYMPHOCYTES % 30.6 % 08/05/2025 1:10 PM HEALTH CARE / MEDICAL JOB TITLES [facility] MONOCYTES % 9.8 % 08/05/2025 1:10 PM HEALTH CARE / MEDICAL JOB TITLES [facility] EOSINOPHILS % 3.3 % 08/05/2025 1:10 PM HEALTH CARE / MEDICAL JOB TITLES [facility] BASOPHILS % 1.0 % 08/05/2025 1:10 PM HEALTH CARE / MEDICAL JOB TITLES [facility] IMMATURE GRANS % 0.4 % 08/05/20 1:10 PM HEALTH CARE / MEDICAL JOB TITLES [facility] NRBC % 0.0 % 08/05/2025 1:10 PM HEALTH CARE / MEDICAL JOB TITLES [facility] ABS. NEUTROPHILS 2.79 1.60 - 8.30 x10'3/uL 08/05/2025 1:10 PM HEALTH CARE / MEDICAL JOB TITLES [facility] ABS. LYMPHOCYTES 1.56 0.80 - 4.70 x10'3/uL 08/05/2025 1:10 PM HEALTH CARE / MEDICAL JOB TITLES [facility] ABS. MONOCYTES 0.50 0.00 - 1.50 x10'3/uL 08/05/2025 1:10 PM HEALTH CARE / MEDICAL JOB TITLES [facility] ABS. EOSINOPHILS 0.17 0.00 - 0.40 x10'3/uL 08/05/2025 1:10 PM HEALTH CARE / MEDICAL JOB TITLES [facility] ABS. BASOPHILS 0.05 0.00 - 0.20 x10'3/uL 08/05/2025 1:10 PM HEALTH CARE / MEDICAL JOB TITLES [facility] ABS. IMMATURE GRANULOCYTES 0.02 0.00 - 0.03 x10'3/uL 08/05/2025 1:10 PM HEALTH CARE / MEDICAL JOB TITLES [facility] ABS. NUCLEATED RBC'S 0.00 0.00 - 0.01 x10'3/uL 08/05/2025 1:10 PM HEALTH CARE / MEDICAL JOB TITLES [facility] BLOOD VENOUS BLOOD SPECIMEN / Unknown 08/05/2025 11:50 AM HEALTH CARE / MEDICAL JOB TITLES Ahsan Carreon DO LABORATORY Final Result [facility] [address] [place] [address], * (ABNORMAL) C-REACTIVE PROTEIN (08/05/2025 11:50 AM HEALTH CARE / MEDICAL JOB TITLES) C-REACTIVE PROTEIN 0.97(H) <0.30 mg/dL 08/05/2025 1:41 PM HEALTH CARE / MEDICAL JOB TITLES [facility] BLOOD VENOUS BLOOD SPECIMEN / Unknown 08/05/2025 11:50 AM HEALTH CARE / MEDICAL JOB TITLES Ahsan Carreon DO LABORATORY Final Result [facility] [facility] [address] [place] [address], * (ABNORMAL) BASIC METABOLIC PANEL (08/05/2025 11:50 AM HEALTH CARE / MEDICAL JOB TITLES) SODIUM S/P/B 142 136 - 145 MMOL/L 08/05/2025 1:41 PM HEALTH CARE / MEDICAL JOB TITLES [facility] POTASSIUM S/P/B 3.4(L) 3.5 - 5.1 MMOL/L 08/05/2025 1:41 PM [facility] CHLORIDE S/P/B 107 98 - 107 MMOL/L 08/05/2025 1:41 PM [facility] CO2 24.9 21.0 - 32.0 MMOL/L 08/05/2025 1:41 PM [facility] GLUCOSE 112(H) 70 - 99 MG/DL 08/05/2025 1:41 PM [facility] Comment: FASTING GLUCOSE 100 TO 125 MG/DL IS CONSISTENT WITH IMPAIRED FASTING GLUCOSE. FASTING GLUCOSE >125 MG/DL IS CONSISTENT WITH DIABETES. RANDOM GLUCOSE >200 MG/DL WITH HYPERGLYCEMIC SYMPTOMS IS CONSISTENT WITH DIABETES. PER ADA GUIDELINES BUN 12 6 - 24 MG/DL 08/05/2025 1:41 PM [facility] CREATININE S/P/B 2.18(H) 0.55 - 1.02 MG/DL 08/05/2025 1:41 PM [facility] CALCIUM S/P/B 8.8 8.4 - 10.5 MG/DL 08/05/2025 1:41 PM [facility] ANION GAP 10.1 5.0 - 15.0 MMOL/L 08/05/2025 1:41 PM [facility] OSMOLALITY (CALC) 295 MOSM/KG 025 1:41 PM [facility] Comment:REFERENCE RANGE NOT ESTABLISHED GFR ESTIMATE 26(L) >89 ML/MIN/1. 73 M2 08/05/2025 1:41 PM HEALTH CARE / MEDICAL JOB TITLES [facility] GFR NOTES GFR REFERENCE S: 08/05/2025 1:41 PM HEALTH CARE / MEDICAL JOB TITLES [facility] Comment: THE ESTIMATED GFR IS CALCULATED [...] BLOOD SPECIMEN / Unknown 08/05/2025 11:50 AM HEALTH CARE / MEDICAL JOB TITLES Ahsan Carreon DO LABORATORY Final Result Performing Organization Address [facility] Co de Phone Number [facility] [address] [place] [address], [place] [phone] * OUTSIDE LAB (SCAN ORDER) (07/29/2025) Only the most recent of3 resultswithin the time period is included. 07/29/2025 [facility] Scanned SCANNING Final Resu lt * (ABNORMAL) POCT glucose (07/23/2025 11:35 AM HEALTH CARE / MEDICAL JOB TITLES) Only the most recent of19 resultswithin the time period is included. GLUCOSE POC 119(H) 70 - 99 MG/DL 07/23/2025 11:42 AM HEALTH CARE / MEDICAL JOB TITLES [facility] 07/23/2025 11:3 5 AM HEALTH CARE / MEDICAL JOB TITLES Shiraz Bailey APRN POCT ORDERABLES - DEVICE Final Result Performing Organization Address City/[facility] Co de Phone Number [facility] [address] [place] [address], [place] [phone] * (ABNORMAL) COMPREHENSIVE METABOLIC PANEL (07/23/2025 4:00 AM [facility]) Only the most recent of6 resultswithin the time period is included. [facility] GLUCOSE 110(H) 70 - 99 MG/DL 07/23/2025 6:[address] [facility] BUN 12 7 - 18 MG/DL 07/23/2025 6:[address] [facility] CREATININE S/P/B 1.00 0.55 - 1.02 MG/DL 07/23/2025 6:[address] [facility] SODIUM S/P/B 143 136 - 145 MMOL/L 07/23/2025 6:[address] [facility] POTASSIUM S/P/B 3.7 3.5 - 5.1 MMOL/L 07/23/2025 6:[address] [facility] CHLORIDE S/P/B 108 100 - 108 MMOL/L 07/23/2025 6:[address] [facility] CO2 27.4 21 - 32 MMOL/L 07/23/2025 6:[address] [facility] CALCIUM S/P/B 8.4(L) 8.5 - 10.1 MG/DL 07/23/2025 6:[address] [facility] BILIRUBIN TOTAL S/P/B 0.3 0.2 - 1.2 MG/DL 07/23/2025 6:[address] [facility] Comment: THIS ASSAY IS NOT RECOMMENDED FOR PATIENTS UNDERGOING TREATMENT WITH ELTROMBOPAG DUE TO THE POTENTIAL FOR FALSELY ELEVATED RESULTS. TOTAL PROTEIN S/P/B 5.4(L) 6.4 - 8.2 G/DL 07/23/2025 6:[address] [facility] ALBUMIN S/P/B 2.7(L) 3.4 - 5.0 G/DL 07/23/2025 6:[address] [facility] AST 13(L) 15 - 37 U/L 07/23/2025 6:[address] [facility] ALT 18 14 - 55 U/L 07/23/2025 6:[address] [facility] ALKALINE PHOSPHATASE S/P/B 63 50 - 136 U/L 07/23/2025 6:[address] [facility] ANION GAP 7.6 5 - 15 MMOL/L 07/23/2025 6:[address] [facility] BUN CREATININE RATIO 12.0 6 - 26 07/23/2025 6:[address] [facility] A/G RATIO 1.0 1.0 - 2.0 RATIO 07/23/2025 6:[address] [facility] GFR ESTIMATE 66(L) >90 ML/MIN/1.7 3 M2 07/23/2025 6:[address] [facility] Comment: NOTE: eGFR is not calculated for patients <18 years of age. This is an estimated GFR calculation using the new CKD EPI creatinine equation without race and so does not require a correction factor for race. This estimated GFR should not be used for calculating drug doses. 07/23/2025 4:00 AM HEALTH CARE / MEDICAL JOB TITLES Shiraz Bailey APRN LABORATORY Final Re sult [facility] [address] [place] [address], * (ABNORMAL) C-REACTIVE PROTEIN (07/23/2025 4:00 AM HEALTH CARE / MEDICAL JOB TITLES) Only the most recent of5 resultswithin the time period is included. C-REACTIVE PROTEIN 0.90(H) <0.3 mg/dL 07/23/2025 6:[address] [facility] 07/23/2025 4:00 AM HEALTH CARE / MEDICAL JOB TITLES Patti BLAS LABORATORY Final Result [facility] [address] [place] [address], [place] [phone] * (ABNORMAL) CBC, AUTO, NO DIFF (07/23/2025 4:00 AM HEALTH CARE / MEDICAL JOB TITLES) WBC 4.89 4.50 - 11.00 x10'3/uL 07/23/2025 5:[address] [facility] RBC 3.36(L) 4.20 - 5.40 x10'6/uL 07/23/2025 5:[address] [facility] HGB 10.2(L) 12.0 - 16.0 G/DL 07/23/2025 5:[address] [facility] HCT 30.1(L) 38.0 - 48.0 % 07/23/2025 5:[address] [facility] MCV 89.6 81.0 - 99.0 FL 07/23/2025 5:[address] [facility] MCH 30.4 27.0 - 31.0 PG 07/23/2025 5:[address] [facility] MCHC 33.9 32.0 - 36.0 G/DL 07/23/2025 5:[address] [facility] RDW 12.8 11.5 - 14.5 % 07/23/2025 5:[address] [facility] PLT 222 130 - 400 x10'3/uL 07/23/2025 5:[address] [facility] MPV 10.0 9.3 - 12.2 FL 07/23/2025 5:[address] [facility] 07/23/2025 4:00 AM HEALTH CARE / MEDICAL JOB TITLES [facility] [place] [facility] Final Re sult Performing Organization Address [facility] de Phone Number [facility] [address] [place] [address], * Vancomycin Random Level (07/23/2025 4:00 AM HEALTH CARE / MEDICAL JOB TITLES) Only the most recent of4 resultswithin the time period is included. VANCOMYCIN RANDOM 24.6 MCG/ML 07/23/2025 5:[address] [facility] Comment: NO THERAPEUTIC RANGE AVAILABLE Toxic Level: >40.0 MCG/ML 07/23/2025 4:00 AM HEALTH CARE / MEDICAL JOB TITLES [facility] Final Re sult Performing Organization Address [facility] de Phone Number [facility] [address] [place] [address], * (ABNORMAL) CBC W/DIFF AUTOMATED (07/22/2025 4:30 AM HEALTH CARE / MEDICAL JOB TITLES) Only the most recent of5 resultswithin the time period is included. WBC 5.02 4.50 - 11.00 x10'3/uL 07/22/2025 5:[address] [facility] RBC 3.44(L) 4.20 - 5.40 x10'6/uL 07/22/2025 5:[address] [facility] HGB 10.5(L) 12.0 - 16.0 G/DL 07/22/2025 5:[address] [facility] HCT 31.5(L) 38.0 - 48.0 % 07/22/2025 5:[address] [facility] MCV 91.6 81.0 - 99.0 FL 07/22/2025 5:[address] [facility] MCH 30.5 27.0 - 31.0 PG 07/22/2025 5:[address] [facility] MCHC 33.3 32.0 - 36.0 G/DL 07/22/2025 5:[address] [facility] RDW 13.4 11.5 - 14.5 % 07/22/2025 5:[address] [facility] PLT 244 130 - 400 x10'3/uL 07/22/2025 5:[address] [facility] MPV 10.3 9.3 - 12.2 FL 07/22/2025 5:[address] [facility] CBC COMMENT AUTOMATED RBC MORPHOLOGY AND PLATELET EVALUATION NORMAL 07/22/2025 5:[address] [facility] NEUTROPHILS % 44.0 % 07/22/2025 5:[address] [facility] LYMPHOCYTES % 41.8 % 07/22/2025 5:[address] [facility] MONOCYTES % 9.0 % 07/22/2025 5:[address] [facility] EOSINOPHILS 3.8 % 07/22/2025 5:[address] [facility] BASOPHILS 0.8 % 07/22/2025 5:[address] [facility] IMMATURE GRANS % 0.6 % 07/22/20 25 5:[address] [facility] NRBC % 0.0 % 07/22/2025 5:[address] [facility] ABS. NEUTROPHILS TOTAL 2.21 1.80 - 7.70 x10'3/uL 07/22/2025 5:09 AM HEALTH CARE / MEDICAL JOB TITLES [facility] ABS. LYMPHOCYTES 2.10 1.00 - 4.80 x10'3/uL 07/22/2025 5:09 AM HEALTH CARE / MEDICAL JOB TITLES [facility] ABS. MONOCYTES 0.45 0.24 - 0.86 x10'3/uL 07/22/2025 5:09 AM HEALTH CARE / MEDICAL JOB TITLES [facility] ABS. EOSINOPHILS 0.19 0.04 - 0.36 x10'3/uL 07/22/2025 5:09 AM HEALTH CARE / MEDICAL JOB TITLES [facility] ABS. BASOPHILS 0.04 0.01 - 0.08 x10'3/uL 07/22/2025 5:09 AM HEALTH CARE / MEDICAL JOB TITLES [facility] ABS. IMMATURE GRANULOCYTES 0.03 0.00 - 0.49 x10'3/uL 07/22/2025 5:09 AM HEALTH CARE / MEDICAL JOB TITLES [facility] ABS. NUCLEATED RBC'S 0.00 0.00 - 0.01 x10'3/uL 07/22/2025 5:[address] [facility] 07/22/2025 4:30 AM HEALTH CARE / MEDICAL JOB TITLES Patti BLAS LABORATORY Final Result [facility] [address] [place] [address], [place] [phone] * SED RATE, ERYTHROCYTE (ESR) (07/19/2025 5:35 PM CDT) ESR 23 <30 MM/HR 07/19/2025 6:3 9 PM CDT [facility] 07/19/2025 5:35 PM CDT Ramon Doran MD LABORATORY Final Result [facility] [address] [place] [address], [place] [phone] * VITAMIN D, 25 OH (07/19/2025 5:35 PM CDT) VITAMIN D 25 HYDROXY S/P/B 48 30 - 100 NG/ML 07/19/2025 6:39 PM CDT [facility] Comment: INTERPRETATION DEFICIENT <20 INSUFFICIENT 20-29 SUFFICIENT 30-100 07/19/2025 5:35 PM CDT Ramon Doran MD LABORATORY Final Result [facility] [address] [place] [address], [place] [phone] * CULTURE, WOUND, W/GRAM STAIN (07/19/2025 10:53 AM CDT) SPEC DESCRIPTION KNEE,RIGHT 07/19/2025 11:07 AM CDT [facility] SPECIAL REQUESTS NO SPECIAL REQUEST 07/19/2025 11:07 AM CDT [facility] GRAM STAIN RESULT RARE WHITE BLOOD CELLS SEEN 07/19/2025 10:29 PM CDT [facility] GRAM STAIN RESULT NO ORGANISMS SEEN 07/19/2025 10:29 PM CDT [facility] CULTURE RESULT NO GROWTH 3 DAYS 07/22/2025 8:11 AM HEALTH CARE / MEDICAL JOB TITLES [facility] WOUND STRUCTURE OF RIGHT KNEE REGION / Unknown 07/19/2025 10:53 AM CDT Ahsan Carreon DO MICROBIOLOGY - GENERAL ORDERABL ES Final Result [facility] [address] [place] [address], [place] [phone] [facility] [address] [place] [address], [place] [phone] * CULTURE, ANAEROBIC (07/19/2025 10:53 AM CDT) SPEC DESCRIPTION KNEE,RIGHT 07/19/2025 11:07 AM CDT [facility] SPECIAL REQUESTS NO SPECIAL REQUEST 07/19/2025 11:07 AM CDT [facility] CULTURE RESULT NO ANAEROBES ISOLATED AT 5 DAYS. 07/24/2025 7:05 AM HEALTH CARE / MEDICAL JOB TITLES [facility] WOUND STRUCTURE OF RIGHT KNEE REGION / Unknown 07/19/2025 10:53 AM CDT Ahsan Carreon DO MICROBIOLOGY - GENERAL ORDERABL ES Final Result [facility] [address] [place] [address], [place] [phone] [facility] [address] [place] [address], [place] [phone] * MAGNESIUM (07/19/2025 4:57 AM CDT) MAGNESIUM 1.9 1.8 - 2.4 MG/DL 07/19/2025 6:11 AM CDT [facility] 07/19/2025 4:57 AM CDT us Romie Swanson MD LABORATORY Final R esult [facility] [address] [place] [address], [place] [phone] * BLOOD CULTURE #2 (07/18/2025 3:45 PM CDT) Only the most recent of2 resultswithin the time period is included. SPEC DESCRIPTION BLOOD 07/18/20 3:51 PM CDT [facility] SPECIAL REQUESTS LAC [id number] 07/18/20 3:51 PM CDT [facility] CULTURE RESULT NO GROWTH 5 DAYS 07/24/2025 9:32 AM HEALTH CARE / MEDICAL JOB TITLES [facility] BLOOD SPECIMEN OBTAINED FOR BLOOD CULTURE / Unknown 07/18/2025 3:45 PM CDT 07/18/2025 3:51 PM CDT Anais Malhotra MD MICROBIOLOGY - GENERAL ORDER WILLI Final Result [facility] [address] [place] [address], [place] [phone] [facility] [address] [place] [address], [place] [phone] * PARTIAL THROMBOPLASTIN TIME,PTT (07/18/2025 3:35 PM CDT) [facility] PTT 27.5 25.1 - 36.5 SEC 07/18/2025 5:21 PM CDT [facility] 07/18/2025 3:35 PM CDT Patti BLAS LABORATORY Final Result [facility] [address] [place] [address], [place] [phone] * PROTHROMBIN TIME, VENOUS (07/18/2025 3:35 PM CDT) Pathologist [facility] PROTIME 11.7 9.4 - 12.5 SEC 07/18/2025 5:21 PM CDT [facility] INR 1.0 0.9 - 1.1 07/18/2025 5:21 PM CDT [facility] Comment: Recommended INR Therapeutic Goals: 2.0-3.0 Routine Therapy 2.5-3.5 Mechanical Prosthetic Valves (High Risk) 07/18/2025 3:35 PM CDT Patti BLAS LABORATORY Final Result Performing Organization Address City/[facility]/ZIP Co de Phone Number [facility] [address] [place] [address], [place] [phone] * LACTIC ACID - SINGLE (07/18/2025 3:34 PM CDT) LACTIC ACID VENOUS 1.8 0.4 - 2.0 MMOL/L 07/18/2025 4:17 PM CDT [facility] 07/18/2025 3:34 PM CDT Anais Malhotra MD LABORATORY Final Result Performing Organization Address [facility] Co de Phone Number [facility] [address] [place] [address], [place] [phone] * URIC ACID, BODY FLUID (07/17/2025 3:04 PM CDT) URIC ACID (FLUID) 7.9 MG/DL 07/18/2025 4:06 PM CDT [facility] Comment:REFERENCE RANGE NOT ESTABLISHED FOR THIS BODY FLUID. SOURCE KNEE,RIGHT 07/17/2025 5:36 PM CDT [facility] STRUCTURE OF RIGHT KNEE REGION / Unknown 07/17/2025 3:04 PM CDT Kyler Ocasio FINANCIAL SUPERVISOR BODY FLUIDS AND STOOLS O RDERABLES Final Result Performing Organization Address City/[facility]/ZIP Co de Phone Number [facility] [address] [place] [address], [place] [phone] [facility] [address] [place] [address], [place] [phone] [id number] * CULTURE, BODY FLUID W/ GRAM STAIN (07/17/2025 3:04 PM CDT) SPEC DESCRIPTION KNEE,RIGHT 07/17/2025 5:36 PM CDT [facility] SPECIAL REQUESTS NO SPECIAL REQUEST 07/17/2025 5:36 PM CDT [facility] GRAM STAIN RESULT MANY WHITE BLOOD CELLS SEEN 07/18/2025 12:20 PM CDT [facility] GRAM STAIN RESULT FEW GRAM POSITIVE COCCI 07/18/2025 12:20 PM CDT [facility] GRAM STAIN RESULT MODERATE GRAM POSITIVE RODS 07/18/2025 12:20 PM CDT [facility] GRAM STAIN RESULT CALLED GRAM STAIN TO AND REPEATED BACK BY DEBBIE MON AT [facility] AT 1219 [phone] DY 07/18/2025 12:20 PM CDT [facility] CULTURE RESULT NO GROWTH 5 DAYS 07/23/2025 7:11 AM HEALTH CARE / MEDICAL JOB TITLES [facility] STRUCTURE OF RIGHT KNEE REGION / Unknown 07/17/2025 3:04 PM CDT 07/17/2025 5:37 PM CDT Kyler Ocasio NP MICROBIOLOGY - GENERAL O RDERABLES Final Result [facility] [address] [place] [address], [place] [phone] [facility] [address] [place] [address], [place] [phone] * CRYSTALS, BODY FLUID (07/17/2025 3:04 PM CDT) SOURCE (FLUID) RIGHT KNEE FLUID 07/18/2025 4:45 PM CDT [facility] CRYSTALS (FLUID) MONOSODIUM URATE CRYSTALS 07/18/2025 5:58 PM CDT [facility] STRUCTURE OF RIGHT KNEE REGION / Unknown 07/17/2025 3:04 PM CDT Kyler Ocasio FINANCIAL SUPERVISOR BODY FLUIDS AND STOOLS O RDERABLES Final Result [facility] [address] [place] [address], [place] [phone] [facility] [address] [place] [address], [place] [phone] * CELL COUNT W/ DIFF BODY FLUID (07/17/2025 3:04 PM CDT) SPECIMEN TYPE RIGHT KNEE FLUID 07/17/2025 5:37 PM CDT [facility] VOLUME (FLUID) 30.0 mL 07/18/2025 1:11 PM CDT [facility] COLOR (FLUID) YELLOW 07/18/2025 1:11 PM CDT [facility] CLARITY (FLUID) TURBID 1:11 PM CDT [facility] RBC (FLUID) 2,857 CELLS/UL 07/18/2025 1:11 PM CDT [facility] Comment: The reference range and other method performance specifications have not been established for this assay on body fluids. The test result should be integrated into the clinical context for interpretation and utilized in comparison to blood concentrations of the analyte as appropriate. TOTAL NUCLEATED CELL COUNT 5,420 CELLS/UL 07/18/2025 1:11 PM CDT [facility] Comment: The reference range and other method performance specifications have not been established for this assay on body fluids. The test result should be integrated into the clinical context for interpretation and utilized in comparison to blood concentrations of the analyte as appropriate. SEGS (FLUID) 70 % 07/18/2025 1:11 PM CDT [facility] Comment: The reference range and other method performance specifications have not been established for this assay on body fluids. The test result should be integrated into the clinical context for interpretation and utilized in comparison to blood concentrations of the analyte as appropriate. LYMPHS (FLUID) 9 % 07/18/2025 1:11 PM CDT [facility] Comment: The reference range and other method performance specifications have not been established for this assay on body fluids. The test result should be integrated into the clinical context for interpretation and utilized in comparison to blood concentrations of the analyte as appropriate. OTHER MONONUCLEAR CELLS (FLD) 21 07/18/2025 1:11 PM CDT [facility] Comment: THE FOLLOWING MAY INCLUDE MONOCYTE/MACROPHAGE,PLASMA [...] / Unknown 07/17/2025 3:04 PM CDT Kyler Ocaiso NP BODY FLUIDS AND STOOLS O RDERABLES Final Result [facility] [address] [place] [address], [place] [phone] [facility] [address] [place] [address], [place] [phone] * XR KNEE RT MIN 4V (07/17/2025 [...] Dain Batista MD, 07/17/2025 7:17 PM us Klyer Oacsio FINANCIAL SUPERVISOR GENERAL IMAGING Final Re sult * A1C (BACK OFFICE) (09/06/2024) HGB A1C 7.0 % [facility] [facility] HUDSON 09/06/2024 Eleanor Dodge MD LABORATORY Final Re sult [facility]USH[facility]BAR[facility] [address] [employer] [place] [address], * DIABETIC RETINOPATHY EXAM (NEGATIVE) (06/20/2023) us [facility] Scanned SCANNING Final Resu lt [facility] from Last 3 Months or Most Recently Relevant to Health Maintenance [place] [address] [place] [address] MEDICAID Advance Directives * Full Code (Latest [...] 10:04 AM 04/13/2022 2:31 PM Care Teams It Data Architect Relationship Specialty Start Date End Date Roland Rojas DO [facility] [place] [address] PCP - General FAMILY PRACTICE 07/22/25
--- OUTSIDE RECORDS SUMMARY | 2025-08-09 12:27 | XMS_ITS | Data Portability ---
Author Organization [place] - [facility] [employer], Main Office Address [address] [place] [address] Care Team Providers Care Surveyor Helper Name Role Phone EMERY RADHA Primary Care Provider HOPRADHA WAGGONER Referring Provider [phone] Assessment Encounter Date Assessment Date Assessment LastModified by Organization Details LastModified Time 02/23/2023 02/23/2023 [employer]- [employer]- [place] Mammo- 11/2021, ordered DEXA- 11/2021 Cscmaria teresa-january- Mil- family hx (grandmother) WEA- 02/23/23 Call office if worse, ER if life threatening illness RTC 6 months and PRN She voices understanding of plan and agrees She has previously been warned that if she continues to be rude and hateful to the staff, she will be discharged from my care. She voices understanding of this. [email or web address] Not available 02/23/2023 16:47:43 Plan of Treatment Reminders Order Date Submit Date Provider Last Modified By Organization Details Last Modified Time Details Appointments None recorded. Lab vitamin D, 25-hydroxy, total, serum 2022 023 [facility], [address], [place], [address], 3 04:44:38 Referral None recorded. Procedures colonoscopy screening (PROC) 2022 023 [email or web address] Tim Jaeger MD, [address], [address], [place], [address], 3 14:31:06 Surgeries None recorded. Imaging MAMMO, screening, bilateral 2022 023 [email or web address] [facility], [address], [place] [address], [place], [address], 4 15:56:08 Medication Orders None recorded. Patient TargetsNo targets recorded. Patient Instructions Encounter Date Encounter Id Patient Instructions Last Modified By Organization Details Last Modified Time 02/23/2023 [id number] INFLUENZA VACCIN E Next vaccination to be [...] Known Diabetic LIPID SCREENING Diagnosis of Hyperlipidemia [email or web address] Not available 02/23/2023 16:51:34 Reason for Referral None Reported. Results Created Date Observation Date Name Description Value Unit Range Abnormal Flag Note LastModifiedBy Organization Detail LastModifiedTime 11/08/1911/08/2022 US, renal No observ ation record ed. [id number] [facility] [address] [place], [address], 11/17/2022 20:40:02 11/11/1911/11/2022 CT, cervi daina spine , w/o contr ast No observ ation record ed. [id number] [facility] [address] [place], [address], 11/17/2022 20:40:02 11/11/19 23 11/11/2022 CT, lumba r spine , w/o contr ast No observ ation record ed. [id number] [facility] [address] [place], [address], 11/17/2022 20:40:02 11/26/19 23 11/24/2022 XR, lumba r spine No observ ation record ed. [address] [place], [address], 11/26/2022 17:06:46 11/26/19 23 11/24/2022 XR, cervi daina spine No observ ation record ed. [address] [place], [address], 11/26/2022 17:07:30 01/30/20 23 01/29/2023 XR, wrist No observ ation record ed. [address] [place], [address], 02/01/2023 11:13:37 07/22/2007/22/2023 CT, head + brain , w/o contr ast No observ ation record ed. [address] [place], [address], 07/28/2023 17:21:08 Result Notes None recorded. Problems Name Problem SNOMED Code Status Onset Date Resolution Date Notes Provider Name and Address Organization Details Recorded Time Suppurativ e arthritis 168998104 Active Not Available [facility] 3 20:39:10 Carpal tunnel syndrome of right wrist 1097061465762 08 Active 2021 Not Available [facility] 3 20:39:10 Mixed anxiety and depressive disorder 681052374 Active 2022 Radha Kaminski, ASIM-Rafael [address] [place] [address], [facility] [address], [place], [address] , [facility] [employer] [facility] 19:36:32 Type 2 diabetes mellitus without complicati on 855417001 Active 2022 MARTHA InfanteC [address], [address], [address] , [facility] [employer] [facility] 19:36:38 Neuropathy 547690341 Active 2022 ASIM Infante-C [address], [address], [address] , [facility] [employer] [facility] 19:36:54 Asthma 995573202 Active 2022 GISELE Infante [address], [address], [address] , [facility] [employer] [facility] 19:36:57 Allergic rhinitis 67857503 Active 2022 ASIM Infante-C [address], [address], [address] , [facility] [employer] [facility] 19:37:23 Cardiovasc ular stress test abnormal 910741825 Active 2022 ASIM Infante-C [address], [address], [address] , [facility] [employer] [facility] 19:38:27 Vitamin D deficiency 73521640 Active 2022 GISELE Infante [address], [address], [address] , [facility] [employer] [facility] 19:38:34 Fatigue 49560453 Active 2022 ASIM Infante-C [address], [address], [address] , [facility] [employer] [facility] 19:38:37 Chronic pain syndrome 575183539 Active 2022 Iliana kolb, [facility] Port[facility] 14:31:47 Problem Notes None recorded. Procedures Surgical History Date Name Laterality Status Provider Name and Address Organization Details Recorded Time Hysterectomy completed Not Available [facility] 11/17/2022 20:38:32 Neck Surgeries completed Not Available [facility] 11/17/2022 20:38:32 Back Surgeries completed Not Available [facility] 11/17/2022 20:38:32 Foot Surgery completed Not Available [facility] 11/17/2022 20:38:32 Knee Surgery completed Not Available [facility] 11/17/2022 20:38:32 Imaging Results None recorded. Procedure Notes None recorded. Medical Equipment None Reported. Allergies Allergen ID Allergen Name Allergen Category Reaction Reaction Severity Criticality Documentation Date Start Date Code Code System Note Provider Name and Address Organization Details Recorded Time 96214 Compazine medicatio n Not available Not available Not available 11/17/202244488 6 RxNorm (lock jaw) Not Available [facility] 20:39:59 Medications Name Sig Start Date [...] mass index (BMI) Body height Oxygen saturation Heart rate Body temperature Body weight Systolic And Diastolic Provider Name and Address Organization Details Last Updated DateTime 3 31.3 kg/m2 170.18 cm 97 % 98 /min 98.1 [degF] 29926.4 7 g 128/76 mm[Hg] Not Available [facility] 3 20:38:57 Date Recorded Body height Body mass index (BMI) Body weight Body temperature Heart rate Oxygen saturation Systolic And Diastolic Provider Name and Address Organization Details Last Updated DateTime 3 170.18 cm 28.2 kg/m2 44588.6 3 g 98.4 [degF] 82 /min 98 % 118/74 mm[Hg] Melina James MA [place] [facility] [employer] [facility] 3 16:17:44 Date Recorded Body mass index (BMI) Body height Body weight Provider Name and Address Organization Details Last Updated DateTime 05/25/2022 34.5 kg/m2 170.18 cm 43307.32 g Not Available [facility] 11/17/2022 20:38:59 Date Recorded Body mass index (BMI) Body height Body weight Provider Name and Address Organization Details Last Updated DateTime 08/24/2022 33.2 kg/m2 170.18 cm 87343.58 g Not Available [facility] 11/17/2022 20:38:59 Date Recorded Body mass index (BMI) Body height Oxygen saturation Heart rate Body temperature Body weight Systolic And Diastolic Provider Name and Address Organization Details Last Updated DateTime 2 32.6 kg/m2 170.18 cm 97 % 98 /min 97.7 [degF] 73837.2 1 g 132/76 mm[Hg] Not Available [facility] 20:38:57 Social History Question Answer Notes LastModified by Organizat ion Details LastModified Time Tobacco Smoking Status Never Smoker Not Available [facility] 11/17/2022 20:38:28 Do You Wear A Helmet When Biking? No MIGRATION.78319 06975 Information not available 11/17/2022 What Is Your Level Of Caffeine Consumption? Moderate MIGRATION.03121 22509 Information not available 11/17/2022 In The 14 Days Before Symptom Onset, Have You Had Close Contact With A Laboratory-confir med COVID-19 While That Case Was Ill? No MIGRATION.70321 93713 Information not available 11/17/2022 In The 14 Days Before Symptom Onset, Have You Had Close Contact With A Person Who Is Under Investigation For COVID-19 While That Person Was Ill? No MIGRATION.77980 14570 Information not available 11/17/2022 What Type Of Diet Are You Following? REGULAR MIGRATION.73348 27841 Information not available 11/17/2022 Have There Been Any Changes To Your Family Or Social Situation? No MIGRATION.87547 18371 Information not available 11/17/2022 What Is The Fluoride Status Of Your Home? Unknown MIGRATION.75714 21531 Information not available 11/17/2022 Do You Use Insect Repellent Routinely? No MIGRATION.19233 99525 Information not available 11/17/2022 Where Do You Live? [place] MIGRATION.66149 34345 Information not available 11/17/2022 What Was The Date Of Your Most Recent Tobacco Screening? 02/23/2023 [email or web address] Information not available 02/23/2023 Do You Have Any Pets? Yes MIGRATION.89451 84934 Information not available 11/17/2022 Do You Have Smoke And Carbon Monoxide Detectors In Your Home? Yes MIGRATION.59353 42511 Information not available 11/17/2022 Are You Passively Exposed To Smoke? No MIGRATION.75832 65561 Information not available 11/17/2022 Are There Any Smokers In Your House? No MIGRATION.67225 58021 Information not available 11/17/2022 Do You Use Sunscreen Routinely? No MIGRATION.75957 23458 Information not available 11/17/2022 Have You Recently Traveled Abroad? No MIGRATION.22202 10692 Information not available 11/17/2022 Do You Have Any Dietary Restrictions? No MIGRATION.20161 23956 Information not available 11/17/2022 Sex: Unknown Functional Status Question Answer Note LastModified by Organizat ion Details LastModified Time Do you or have you ever used any other forms of tobacco or nicotine? No MIGRATION.918232209 6 Information not available 11/17/2022 What is your level of alcohol consumption? None MIGRATION.820403385 6 Information not available 11/17/2022 What is your exercise level? Moderate MIGRATION.001793254 6 Information not available 11/17/2022 Mental Status Question Answer Note LastModified by Organizat ion Details LastModified Time Do you feel stressed (tense, restless, nervous, or anxious, or unable to sleep at night)? [id number] MIGRATION.[id number] 6 Information not available 11/17/2022 Family History Relationship Description Onset Age of this Age Resolved Age Notes LastModified by Organization Details LastModified Time Mother Family history of malignant neoplasm [id number] Not available 11/17/2022 20:38:33 Medical History Condition Response DIABETES, TYPE Y Gynecological HistoryNo gynecological history recorded. Obstetrics History GPAL:G 0 P 0 0 0 0 Past Encounters Encounter ID Performer Location Encounter Start Date Encounter Closed Date Diagnosis/Indication Diagnosis SNOMED-CT Code Diagnosis ICD10 Code Diagnosis IMO Codes Diagnosis Note [id number] MD YODIT Angulo[facility] [place] [place] [address] [facility] [place] [address] 12/02/2021 00:00:00 12/02/2021 17:07:21 [id number] MD YODIT [facility] [place] [address] [facility] y , [place] [address] 12/30/2021 00:00:00 12/30/2021 14:49:27 [id number] Edward Osborne MD [facility] [place] [address] [place] [address] 01/12/2022 00:00:00 01/12/2022 15:29:24 [id number] Isabella shaw MD [facility] [place] [address] [place] [address] y , [place] [address] 01/20/2022 00:00:00 01/20/2022 14:52:49 [id number] [facility] [place] [address] [facility] y , [place] [address] 02/03/2022 00:00:00 02/03/2022 15:30:47 [id number] Isabella shaw MD [facility] [place] [address] [place] [address] y , [place] [address] 03/31/2022 00:00:00 03/31/2022 16:28:57 [id number] Edward Osborne MD [facility] [place] [address] [place] [address] 04/09/2022 00:00:00 04/09/2022 13:24:19 [id number] Edward Osborne MD [facility] [place] [address] [place] [address] 04/27/2022 00:00:00 04/27/2022 16:52:36 [id number] Edward Osborne MD [facility] [place] [address] [place] [address] 05/25/2022 00:00:00 05/25/2022 16:49:47 [id number] Edward Osborne MD [facility] [place] [address] [place] [address] 08/24/2022 00:00:00 08/24/2022 17:22:21 [id number] Isabella shaw MD [facility] [place] [address] [place] [address] [place] [address] 08/25/2022 00:00:00 08/25/2022 16:57:02 [id number] Isabella shaw MD [facility] Internal Med [facility] [address] [facility], [address] [place] [address] 11/01/2022 00:00:00 11/01/2022 16:01:52 [id number] Isabella shaw MD [facility] [place] [address] [place] [address] [place] [address] 02/23/2023 16:02:31 02/23/2023 16:32:14 Mixed anxiety and depressive disorder 957385088 F41.8 now following psychiatry - Dr. Rollins's officeon wellbutrin from [place] office if any change in mood or behaviorSh e is able to commit to safety todayconti nue counseling Type 2 wendy betes mellitus without complication 243321868 E11.9 on Trulicity, glimiperid efollows endocrinol ogy- Dr. Garcia in [facility] eye exam- 11/2021- encouraged her to schedule pt is aware of side effects, risks, benefitspt denies any personal or family history of MEN II or MTC, denies and personal history of pancreatit ispt knows to call the office if any severe n/v or abdominal pain Neuropathy 488981506 G62 .9 follows podiatry- Dr. Harley Gipson gabapentin from [facility] Asthma 136207343 J45.90 9 on proair prnon Symbicort, she is worse at effects, risks, benefitssh e is aware to rinse and spit after use Carpal julita kendra syndrome of right wrist 3778643917 42664 G56.01 now following hand surgery- Dr. Osborne Allergic rhinitis 455187 04 J30.9 on flonase and singulairc all office if any change in mood or behavior Body mass index 30+ - obesity 261406336 Z68.31 recommend healthy, well balanced mealsfocus on lean meats, fresh vegetables , fresh fruits, whole grainsredu ce fast/proce ssed foods or eating out to no more than 1-2 times per weekaim to get 30 min of exercise most days of the week- walking is a great choice Cardiovasc ular stress test abnormal 669918742 R94.39 cardiac cath was ok per cardiologi st note Vitamin D deficiency 347 07016 E55.9 hold vitamin d x 4 weeks and then repeat levelnever got repeat level- encouraged her to get Fatigue 97268343 R53.83 no explanatio n for fatigue in labs, recommend sleep study- she declines Screening mammography 24 747276 Z12.31 Family his tory of cancer of colon 827628903 Z80.0 Adult heal th examination 657481263 Z00.01 Depression screening 171 580262 Z13.31 Body mass index 25-29 - overweight 402534404 Z68.28 recommend healthy, well balanced mealsfocus on [...] Guo Member ID Guarantor Name 02/20/2023 1 [facility] [id number] Niles Villafana Lang [id number] 1 Niles Croft Notes Date Note Type Note Provider Name and Address Organization Details Recorded Time 02/23/2023 text/html Niles presents today for follow up. She is also due for annual wellness exam. she reports she has had a ne the foot surgery with her jordan worker. She follows up again in a couple weeks. She is just on a regular tennis shoe and not in a boot at this time. She continues to follow Endocrinology for her diabetes. They order all of her labs. She also continues to follow with her whanau support worker regularly. She still refuses her sleep study. [...] due for mammogram. Radha Kaminski, ASIM-C [address] [facility], [facility] [address], [place], [address], [place] [facility] 02/23/2023 16:52:24 OBGyn Episode No OBEpisode recorded.
--- OUTSIDE RECORDS SUMMARY | 2025-08-09 12:27 | XMS_ITS | Encounter Summary ---
Author Organization [facility] Address [address] [place] [address] Care Team Providers Care Client Service Supervisor Name Role Phone Radha Kaminski NP Primary Care Provider [phone] Roland Rojas DO Primary Care Provider [phone] Reason for Visit * Reason Onset Date Comments Called To Cancel Office Appt. 12/17/2024 Encounter Details Date Type Department Care Team (Late st Contact Info) Description 12/17/2024 Telephone [facility] Medical Group Diabetes and Endocrinology - [address] [address] Eleanor Dodge MD [address] [place] [address] Called To Cancel Office Appt. Social [...] Sex Assigned at Female 08/12/2020 10:34 AM CUSTODIAN MANAGER Legal Sex Female 10:58 PM CUSTODIAN MANAGER Gender Identity Female 08/12/2020 10:34 AM CUSTODIAN MANAGER Sexual Orientation Straight 08/12/2020 10 :34 AM CUSTODIAN MANAGER documented as of this encounter Progress Notes * Mattie Fox - 12/17/2024 10:31 AM CDT Caller name: Pt, Rhonnie Call back/ext. #: [phone] MyChart: Yes- please communicate with the caller via [employer] regarding this matter Call details: Called and cancelled her appt for tomorrow at 9:40 due to other conflicts. She states that she will call back to reschedule when she gets her calendar. documented in this encounter Plan of Treatment Upcoming Encounters Date Type Department Care Team (Late st Contact Info) Description 08/12/2025 12:00 PM CUSTODIAN MANAGER Appointment [place] [address] [place] [address] Marah Witt, RN 08/19/2025 8:00 AM CUSTODIAN MANAGER Appointment [place] [address] [place] [address] Marah Witt, RN 08/21/2025 2:40 PM CUSTODIAN MANAGER Office Visit [facility] Medical Group Orthopedic Surgery [facility] [address] [facility] [address] [place] [address] Kyler Ocasio, CHEF MANAGER [address] [place] [address] 08/26/2025 9:00 AM CUSTODIAN MANAGER Appointment [place] [address] [place] [address] Marah Witt, RN 09/02/2025 2:00 PM CUSTODIAN MANAGER Appointment [address] [address] Marah Witt, RN 09/09/2025 11:00 AM CUSTODIAN MANAGER Appointment [address] [address] Marah Witt, RN documented as of this encounter Visit Diagnoses Not on filedocumented in this encounter Additional Health Concerns Assessment Noted Time PHQ-9 Depression Total Score: 0 08/12/20 21 2:09 PM CUSTODIAN MANAGER documented as of this encounter Care Teams Client Service Supervisor Relationship Specialty Start Date End Date Radha Kaminski NP [facility] [place] [phone] PCP - General NURSE PRACTITIONER 04/09/22 07/21/25 Roland Rojas DO [address] [place] [address] PCP - General FAMILY PRACTICE 07/22/25 documented as of this encounter
[2025-08-09 13:18] LABS: Anion Gap 14 mmol/L (4-12); Blood Urea Nitrogen 14 mg/dL (7-17); Calcium 9.1 mg/dL (8.4-10.2); Carbon Dioxide 21 mmol/L (22-30); Chloride 107 mmol/L (98-107); Estimated Glomerular Filt Rate 25; Glucose 151 mg/dL (65-110); Osmolality Calculated 297 mOsm/kg (285-295); Potassium 3.6 mmol/L (3.4-5.0); Sodium 142 mmol/L (137-145)
== END 2025-08-09 12:22 | disposition home or self-care (01) ==
LOC: CHSLAB 12:23
PROVIDERS: PCP Family Medicine; Visit Provider Orthopaedic Surgery
DX: M00.9 Pyogenic arthritis, unspecified (principal)
CPT/HCPCS: 36415; 80048; 80202

== ENCOUNTER 2025-08-12 12:52 | Outpatient (NON) | payer OTHER, MEDICAID, SELFPAY ==
--- OUTSIDE RECORDS SUMMARY | 2024-11-22 07:15 | XMS_ITS ---
Author Organization [facility] [employer] [facility] Address [address] [place] [address] [address] Care Team Providers Care Electrical Logger Name Role Phone Roland Rojas DO Primary Care Provider Unavail Julian Mcconnell Unavailable [phone] REASON FOR VISIT Pt r/s and no one documented it or removed this encounter Social History Sex Assigned At : Social History Observation Description Sex Assigned At Female Encounters Encounter Location Date Provider Diagnosis [facility] [employer] [address] [address] 11/22/2024 Julian Cummings Plan Of Treatment Next Appt Details Provider Name:Stacia Byrnes Axelyani luke, 11/05/2025 01:30:00 PM, [facility] [address], [facility] [address], [place], [address], Progress Notes * IZABELA PARRA GDOB:1969 (55 yo F)Acc No.[id number]:11/22/2024 Patient: Bianka IZABELA FRANCES Provider: LEOLA IQBAL :1970 A ge:54 Y S ex:Female Date:11/22/2024 Address:[address] [place], [place] [id number] Pcp:Roland Rojas DO Subjective: * Chief Complaints: * P t r/s and no one documented it or removed this encounter Billing Information: * Procedure Codes: * Electronic signature of LEOLA Rosas on 08/12/2025 at 07:32 AM BANKING SPECIALIST Sign off status: Pending * Provider: LEOLA IQBAL Date: 0 11/22/2024 Generated for Dilip brown/Elen/Rachel on: 1 10/12/2024 07:32 AM BANKING SPECIALIST
[2025-08-12 13:08] LABS: Hematocrit 32.2 % (35.0-49.0); Hemoglobin 11.3 g/dL (12.0-15.0); Immature Granulocyte Percent A 0.2 % (0.0-0.0); Lymphocytes Absolute Auto 1.71 K/mm3 (1.10-4.50); Mean Corpuscular HGB Conc 35.1 g/dL (32-36); Mean Corpuscular Hemoglobin 30.5 pg (27.0-31.0); Mean Corpuscular Volume 87.0 fL (78.0-102.0); Nucleated Red Blood Cells Absolute Auto 0.00 K/mm3 (0.00-0.00); Nucleated Red Blood Cells Perc 0.0 % (0-0.0); Platelet Count Result 255 K/mm3 (150-420); Red Blood Count 3.70 M/mm3 (4.20-5.40); White Blood Count 5.6 K/mm3 (4.8-10.8)
[2025-08-12 13:24] LABS: Anion Gap 11 mmol/L (4-12); Blood Urea Nitrogen 14 mg/dL (7-17); CRP 0.9 mg/dL (<1.0); Calcium 9.1 mg/dL (8.4-10.2); Carbon Dioxide 25 mmol/L (22-30); Chloride 105 mmol/L (98-107); Estimated Glomerular Filt Rate 31; Glucose 118 mg/dL (65-110); Osmolality Calculated 293 mOsm/kg (285-295); Potassium 3.4 mmol/L (3.4-5.0); Sodium 141 mmol/L (137-145)
--- OUTSIDE RECORDS SUMMARY | 2025-08-12 14:55 | XMS_ITS | Clinical Summary ---
Author Organization [facility] Address [address] [place] [address] Phone Care Team Providers Care Pearl Technician Name Role Phone Radha Kaminski Primary Care Provider [phone] Allergies Active Allergy Reactions Criticality Noted Date Comments Prochlorperazine Other (see comments),Shortness of breath High 11/26/2016 Lockjaw Lockjaw Medications aspirin (ST DUDLEY) 81 MG EC tablet Take 81 mg by mouth daily Active buPROPion XL (WELLBUTRIN XL) 150 MG 24 hr tablet 2 Active Cholecalciferol (Vitamin D3) 1.25 MG (34903 UT) capsule Twice a week 2 Active [...] Done Comments Influenza Vaccine (#1) [address] [place] [address] Care Teams Pearl Technician Relationship Specialty Start Date End Date Radha Kaminski [facility] [place] [address] PCP - General Family Medicine 06/21/22
--- OUTSIDE RECORDS SUMMARY | 2025-08-12 14:55 | XMS_ITS | Patient Health Record ---
Author Organization [facility] [employer] Address [address] [facility] [address] [place] [address] Care Team Providers Care Certified Alcohol And Drug Counselor Name Role Phone Roland Rojas DO Primary Care Provider Unavail able Julian Cummings Unavailable [phone] Allergies Allergen (clinical drug ingredient) Drug/Non Drug [...] ICOSAPENT ETHYL 1 GRAM CAPSULE *Reorder from [employer] for eRx and Interaction Alerts* 12/21/2023 Active Rosuvastatin Calcium 40 MG Tablet Oral 12/21/2023 Active oxyCODONE HCl 5 MG Tablet Oral 12/21/2023 Active Gabapentin 300 MG Capsule Oral 12/21/2023 Active Magnesium Oxide (Elemental) 400 MG Tablet Oral *Reorder from [employer] for eRx and Interaction Alerts* 12/21/2023 Active [...] Problem Bipolar affective disorder, currently depressed, moderate (802527950) Bipolar disorder, current episode depressed, moderate (F31.32) 12/21/19 24 Active confirmed Problem Attention deficit hyperactivity disorder, combined type (17664248) Attention-deficit hyperactivity disorder, combined type (F90.2) Active confirmed Vital Signs Heart Rate 81 /min 08/05/2025 Height-cm 170.18 cm 08/05/2025 Blood pressure diastolic 78 mm Hg 08/05/2025 Weight-kg 93.89 kg 08/05/2025 Height 67.00 in 08/05/2025 Blood pressure systolic 128 mm Hg 08/05/2025 Weight 207 lbs 08/05/2025 BMI 32.42 kg/m2 08/05/2025 Encounters Encounter Location Date Provider Diagnosis [facility] [employer] [address] [address] 08/05/2025 Julian Cummings Bipolar disorder, current episode depressed, moderate F31.32 and Attention-deficit hyperactivity disorder, combined type F90.2 [facility] [employer] [address] [address] [place] [address] 09/26/2024 Julian Cummings Attention-deficit hyperactivity disorder, combined type F90.2 and Bipolar disorder, current episode depressed, moderate F31.32 [facility] [employer] [address] [address] 12/06/2024 Julian Cummings Encounter for screen ing for cardiovascular disorders Z13.6 ; Encounter for screening for depression Z13.31 ; Attention-deficit hyperactivity disorder, combined type F90.2 and Bipolar disorder, current episode depressed, moderate F31.32 [facility] [address] [place] [address] 01/07/2025 Julian Cummings Encounter for screen ing for cardiovascular disorders Z13.6 ; Encounter for screening for depression Z13.31 ; Attention-deficit hyperactivity disorder, combined type F90.2 and Bipolar disorder, current episode depressed, moderate F31.32 [facility] [address] [place] [address] 02/19/2025 Julian Cummings Encounter for screen ing for cardiovascular disorders Z13.6 ; Encounter for screening for depression Z13.31 ; Attention-deficit hyperactivity disorder, combined type F90.2 and Bipolar disorder, current episode depressed, moderate F31.32 [facility] [address] [place] [address] 03/29/2025 Julian Cummings Attention-deficit hyperactivity disorder, combined type F90.2 and Bipolar disorder, current episode depressed, moderate F31.32 [facility] [address] [place] [address] 05/03/2025 Julian Cummings Bipolar disorder, current episode depressed, moderate F31.32 and Attention-deficit hyperactivity disorder, combined type F90.2 [facility] [address] [place] [address] 08/28/2024 Julian Cummings Attention-deficit hyperactivity disorder, combined type F90.2 [facility], [facility] [address] [place] [address] 09/03/2024 Julian Jonesoza [facility], [facility] [address] [place] [address] 10/31/2024 Julian Cummings [facility] [address] [place] [address] 01/07/2025 Julian Jonesoza [facility], [facility] [address] [place] [address] 01/21/2025 Julian Cummings [facility] [address] [place] [address] 10/31/2024 Julian Cummings Attention-deficit hyperactivity disorder, combined type F90.2 [facility] [address] [place] [address] 10/31/2024 Julian Cummings Attention-deficit hyperactivity disorder, combined type F90.2 [facility] [address] [place] [address] 05/03/2025 Julian Cummings Attention-deficit hyperactivity disorder, combined type F90.2 [facility] [address] [facility] [address] [place] [address] 05/03/2025 Julian Katza [facility] [address] [facility] [address] [place] [address] 06/17/2025 Julian Cummings [facility], [facility] [address] [facility] [address] [place] [address] 06/17/2025 Julian Cummings [facility], [place] [address] [facility] [address] [place] [address] 06/17/2025 Julian Cummings Attention-deficit hyperactivity disorder, combined type F90.2 [place] [address] [facility] [address] [place] [address] 06/18/2025 Julian Katza [facility] [address] [address] 07/10/2025 Julian Cummings Attention-deficit hyperactivity disorder, combined [...] twice daily and Vraylar 3 mg. 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 due [...] screening for depression (ICD-10 - Z13.31) 12/06/2024 Attention-defic it hyperactivity disorder, combined type [...] PM, [address], [place], [address], Insurance Providers Payer Name Payer Address Payer Phone Subscriber Number Group Number Insured Name Patient Relationship to Insured Coverage Start Date Coverage End Date [employer] [address] [place] [address] [id number] IZABELA PARRA Self - patient is the insured Medicaid-[place] l Medicaid [address] [address] [place] [address] [id number] IZABELA PARRA Self - patient is the insured Medical (General) History Medical History History ICD Code Problems: Attention deficit hyperactivit y disorder, combined type Bipolar affective disorder, current epis ode depression , Surgical History Surgery Date(Month/Year) Other 09/19/1998 Hysterectomy (70900) 09/19/1999 Removal of gallbladder (06201) 1 Any surgical history 09/19/2009 Appendectomy (17733) 09/20/1993 Knee Surgery
--- OUTSIDE RECORDS SUMMARY | 2025-08-12 14:56 | XMS_ITS | Encounter Summary ---
Author Organization [facility] Address [address] [place] [address] Care Team Providers Care Clothing Pattern Preparer Name Role Phone Radha Kaminski MYRON-SHAKER TENDER Primary Care Provider [phone] Harmony Mcrae MD Unavailable Encounter Details Date Type Department Care Team (Late st Contact Info) Description 06/20/2023 Lab Requisition [facility] - Derm[facility] Lab [address] 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 Received: 06/21/2023 06:10 AM Pathologist: [...] by the Dermatopathology Laboratory at [facility], directed by Dr. Jean-Pierre Miller. These tests need not be, and therefore are not, approved by the [place] Food and Drug Administration. The tests are used for clinical purposes. Billing Codes Specimen Charges Stain Charges 90775 1 79770 1 4:35 PM CDT DERMATOPATHOLOGY LABORATORY Embedded Images 4:35 PM CDT DERMATOPATHOLOGY LABORATORY Pathology/Cytolog y TISSUE SPECIMEN FROM SKIN / Unknown 06/20/2023 06/21/2023 6:10 AM CDT us Andrzej Aguilar MD LAB - PATHOLOGY/CYTOLOGY ORDERAB LES Final Result DERMATOPATHOLOGY LABORATORY [facility] - Department of Dermatology [facility] [address] [facility], [address]rd [address] [phone] documented in this encounter Visit Diagnoses Not on filedocumented in this encounter Care Teams Clothing Pattern Preparer Relationship Specialty Start Date End Date Radha Kaminski APRN-SHAKER TENDER [address] [facility] [address] [place] [phone] PCP - General Nurse Practitioner Family 12/03/21 [place] [address] [place] [address] [place] [address] Rheumatology 12/03/21 documented as of this encounter
--- OUTSIDE RECORDS SUMMARY | 2025-08-12 14:56 | XMS_ITS ---
[...] FLP 1 mo. Atypical chest pain 1025 02876 R07.89 Patient presents with chest pain with [...] HGB 13.8 HCT 39.3 PLT 234 Palpitations 36075201 R0 0.2 Less frequent. Had Cardea 7 [...] 12/05/17. Had 05/25/18 TSH 2.330 Coronary arteriosclerosis 92289926 I25.10 Mild-moder ate CAD. Had [facility] 02/18/22: mild to moderate CAD (40% stenosis mid LCx, LAD and RCA no significan t disease, RCA non-domina nt), normal LV systolic function, normal LVEDP. Continue ASA. Needs to keep LDL less than 70, and HDL more than 40. Pre-surger y evaluation [id number] Z01.818 There is no cardiac contraindi cation for the procedure. The planned procedure would be within acceptable risk. Patient may stop taking aspirin five (5) days prior to the procedure. [address] Adan Dobbins MD [facility] [address] [place] [address] 05/05/2022 14:17:27 05/05/2022 15:27:04 Aortic valve regurgitation 96823188 I35.1 Mild previously . Had US, echocardio [...] Mild aortic valve regurgitat ion. Essential hypertension 66304333 I10 Well-contr olled with diet today despite [...] Oxide. BP diary. Obtain BMP, Mg. Dizziness 374996749 R42 Intermitte nt. Postural. Had US, carotid artery ( 2) Antegrade flow noted in both vertebral arteries. Mild bilateral internal carotid artery stenosis with less than 50% diameter stenosis. Had Carotid US on 02/22/18 showing mild bilateral internal carotid artery stenosis with less than 60% diameter stenosis. Needs repeat carotid U/S 02/2023. Pain in bi lateral legs [id number] 7001560 M79.604 Had Normal ankle-brac hial index done in 10/26/17. Tachycardia 0073317 R00. 0 Improved but intermitte nt palpitatio ns on Metoprolol 200 mg qd, which she self-disco ntinued. Had 05/25/18 TSH 2.330. Anxiety 70747500 F41.9 Improved. History of anxiety and currently going through major life changes. Diabetes mellitus 339712 09 E11.59 Discussed importance of tight glycemic control to minimize cardiovasc ular disease progressio n. Follows with endo. Edema of l ower extremity 885379606 R60.0 Intermitte nt. Minimal. Started on HCTZ 12.5 mg 01/20/18 with resolution of edema but with increased Cr, prompting cessation of hydrochlor othiazide Feb 15 2018. Had poor liquid intake at that time. Had negative Venous Doppler for DVT on 01/20/18. Elevate legs.Compr ession stockings. Low Na diet. Consider HCTZ if edema increases. History of obesity 62821 3001 Z91.89 20 lb. weight loss recommende d over the next 2 months. Hypercholesterolemia 136 21172 E78.2 Needs to keep LDL less than [...] CPK 72 normal. Atypical chest pain 1025 76490 R07.89 Patient presents with chest pain with atypical features and exertional dyspnea which can be an anginal equivalent , improved. Had exercise nuclear stress test 01/26/22: positive for ischemia, with reversible defect consistent with ischemia in laura-api daina area (new compared with 06/14/17).H ad [facility] 02/18/22: mild to moderate CAD (40% stenosis [...] 13.8 HCT 39.3 PLT 234 Coronary arteriosclerosis 44607014 I25.10 Mild-moder ate CAD. Had [facility] 02/18/22: mild to moderate CAD (40% stenosis mid LCx, LAD and RCA no significan t disease, RCA non-domina nt), normal LV systolic function, normal LVEDP. Continue ASA. Needs to keep LDL less than 70, and HDL more than 40. Palpitations 62094306 R0 0.2 Resolved. Had Cardea 7 day [...] 152 CA 9.0 MAG 1.6 CK 72 07841 Adan Dobbins MD [facility] [address] [place] [address] 10/27/2022 11:20:27 10/27/2022 12:56:22 Aortic valve regurgitation 91889950 I35.1 Mild previously . Had US, echocardio [...] Mild aortic valve regurgitat ion. Essential hypertension 12795145 I10 Well-contr olled with diet today despite [...] BP diary. Obtain BMP, Mg, drawn at [facility]. 10/25/22. Dizziness 228647129 R42 Intermitte nt. Postural. Had US, carotid artery ( 2) Antegrade flow noted in both vertebral arteries. Mild bilateral internal carotid artery stenosis with less than 50% diameter stenosis. Had Carotid US on 02/22/18 showing mild bilateral internal carotid artery stenosis with less than 60% diameter stenosis. Needs repeat carotid U/S 01/2023. Pain in bi lateral legs [id number] 4438518 M79.604 Had Normal ankle-brac hial index done in 10/26/17. Tachycardia 6000767 R00. 0 Improved but intermitte nt palpitatio ns on Metoprolol 200 mg qd, which she self-disco ntinued. Had 05/25/18 TSH 2.330. Anxiety 43592356 F41.9 Improved. History of anxiety and currently going through major life changes. Diabetes mellitus 427467 09 E11.59 Discussed importance of tight glycemic control to minimize cardiovasc ular disease progressio n. Follows with endo. Edema of l ower extremity 167645686 R60.0 Intermitte nt. Minimal. Started on HCTZ 12.5 mg 01/20/18 with resolution of edema but with increased Cr, prompting cessation of hydrochlor othiazide Feb 15 2018. Had poor liquid intake at that time. Had negative Venous Doppler for DVT on 01/20/18. Elevate legs.Compr ession stockings. Low Na diet. Consider HCTZ if edema increases. Obtain labs 10/25/21 [facility]. History of obesity 95306 3001 Z91.89 20 lb. weight loss recommende d over the next 2 months. Hypercholesterolemia 136 99964 E78.2 Needs to keep LDL less than [...] CPK 72 normal. Atypical chest pain 1025 80460 R07.89 Patient presents with chest pain with [...] 13.8 HCT 39.3 PLT 234 Coronary arteriosclerosis 20169886 I25.10 Mild-moder ate CAD. Had [facility] 02/18/22: mild to moderate CAD (40% stenosis mid LCx, LAD and RCA no significan t disease, RCA non-domina nt), normal LV systolic function, normal LVEDP. Continue ASA. Needs to keep LDL less than 70, and HDL more than 40. Palpitations 59184827 R0 0.2 Resolved. Had Cardea 7 day [...] MAG 1.6 CK 72 Pre-surger y evaluation 092034047 Z01.818 There is no cardiac contraindi cation for the procedure. The planned procedure would be within acceptable risk. Patient may stop taking aspirin five (5) days prior to the procedure. [id number] Adan Dobbins MD [place] [facility] [place] [address] 01/05/2023 14:00:47 01/05/2023 14:46:55 Aortic valve regurgitation 69914072 I35.1 Mild previously . Had US, echocardio [...] regurgitat ion. Obtain echo 03/2023. Essential hypertension 30258192 I10 Well-contr olled with diet today despite [...] CR 1.12 GL 177 CA 9.0 Dizziness 369792308 R42 Intermitte nt. Postural. Had US, carotid artery ( 2) Antegrade flow noted in both vertebral arteries. Mild bilateral internal carotid artery stenosis with less than 50% diameter stenosis. Had Carotid US on 02/22/18 showing mild bilateral internal carotid artery stenosis with less than 60% diameter stenosis. Needs repeat carotid U/S 02/2023. Pain in bi lateral legs 5748144019 6730835 M79.604 Had Normal ankle-brac hial index done in 10/26/17. Tachycardia 6597013 R00. 0 Improved but intermitte nt palpitatio ns on Metoprolol 200 mg qd, which she self-disco ntinued. Had 05/25/18 TSH 2.330. Anxiety 29775516 F41.9 Improved. History of anxiety and currently going through major life changes. Diabetes mellitus 541751 09 E11.59 Discussed importance of tight glycemic control to minimize cardiovasc ular disease progressio n. Follows with endo. Edema of l ower extremity 007099707 R60.0 Intermitte nt. Minimal. Started on HCTZ 12.5 mg 01/20/18 with resolution of edema but with increased Cr, prompting cessation of hydrochlor othiazide Feb 15 2018. Had poor liquid intake at that time. Had negative Venous Doppler for DVT on 01/20/18. Elevate legs.Compr ession stockings. Low Na diet. Consider HCTZ if edema increases. History of obesity 75186 3001 Z91.89 20 lb. weight loss recommende d over the next 2 months. Hypercholesterolemia 136 63009 E78.2 Needs to keep LDL less than [...] Mg, TSH, CBC. Atypical chest pain 1025 40108 R07.89 Resolved. Had exercise nuclear stress test [...] 13.8 HCT 39.3 PLT 234 Coronary arteriosclerosis 29858377 I25.10 Mild-moder ate CAD. Had [facility] 02/18/22: mild to moderate CAD (40% stenosis mid LCx, LAD and RCA no significan t disease, RCA non-domina nt), normal LV systolic function, normal LVEDP. Continue ASA. Intolerant of lisinopril with altered mental status. Needs to keep LDL less than 70, and HDL more than 40. Palpitations 45141555 R0 0.2 Resolved. Had Cardea 7 day [...] Member ID Guarantor Name 05/03/2025 1 [employer] [id number] Niles Croft [id number] 1 Niles Croft Notes Date Note Type [...] She is having R ankle surgery at [facility] in [facility] with Dr. Phillips, date pending. Reports home [...] related. She had fasting blood work at [facility] on 05/25/18 which was all WNL except [...] She is having R ankle surgery at [facility] in [facility] with Dr. Phillips, date pending. Reports home [...] related. She had fasting blood work at [facility] on 05/25/18 which was all WNL except [...] correlated with normal sinus rhythm. Adan Dobbins [place], [place] - [facility] 02/03/2022 11:48:28 03/03/2022 text/html 03/03/22 CC: Chest pain 51 year-old woman with history of HTN, aortic valve regurgitation, obesity, diabetes mellitus, CKD, family history of CAD, former tobacco use (quit 05/2016), anxiety, depression, is seen in cardiac consultation for chest pain. She was last in the office 4 weeks ago. Had [facility] 02/18/22: mild to moderate CAD (40% stenosis mid LCx, LAD and RCA no significant disease, RCA non-dominant), normal LV systolic function, normal LVEDP. She is having R ankle surgery at [facility] in [facility] with Dr. Phillips, date pending. Reports home [...] related. She had fasting blood work at [facility] on 05/25/18 which was all WNL except [...] EF 57%, Mild aortic valve regurgitation. Had [facility] 02/18/22: mild to moderate CAD (40% stenosis [...] >70%. Had normal [facility] on 10/21/17. Had [employer] 7 day monitor 01/23/2018 which demonstrated normal [...] normal LV systolic function, normal LVEDP. Adan [place], [place] - [facility] 03/03/2022 17:58:07 05/05/2022 text/html 05/05/22 CC: Chest pain 51 year-old woman with history of CAD, carotid artery stenosis, HTN, aortic valve regurgitation, obesity, diabetes mellitus, CKD, family history of CAD, former tobacco use (quit 05/2016), anxiety, depression, is seen in cardiac consultation for chest pain. She was last in the office 8 weeks ago. Had [facility] 02/18/22: mild to moderate CAD (40% stenosis mid LCx, LAD and RCA no significant disease, RCA non-dominant), normal LV systolic function, normal LVEDP. She had R ankle surgery at [facility] in [facility] with Dr. Phillips 03/2022. Reports home BP [...] related. She had fasting blood work at [facility] on 05/25/18 which was all WNL except [...] infarct. Normal left ventricular ejection fraction measuring>70%. CHEST 2 VIEWS: No acute cardiopulmonary disease. [...] correlated with normal sinus rhythm. [facility] 02/18/22: mild to moderate CAD (40% stenosis mid LCx, LAD and RCA no significant disease, RCA non-dominant), normal LV systolic function, normal LVEDP. Adan oDbbins [place], [place] - [facility] 05/05/2022 15:19:25 [...] foot tendon repair, date pending. [facility] 02/18/22: mild to moderate CAD (40% stenosis mid LCx, LAD and RCA no significant disease, RCA non-dominant), normal LV systolic function, normal LVEDP. She had R ankle surgery at [facility] in [facility] with Dr. Phillips 03/2022. Reports home BP [...] related. She had fasting blood work at [facility] on 05/25/18 which was all WNL except [...] events correlated with normal sinus rhythm. Had [facility] 02/18/22: mild to moderate CAD (40% stenosis mid LCx, LAD and RCA no significant disease, RCA non-dominant), normal LV systolic function, normal LVEDP. Adan Dobbins [place], [place] - [facility] 10/27/2022 12:49:30 [...] had R foot tendon repair 10/28/22. Had [facility] 02/18/22: mild to moderate CAD (40% stenosis mid LCx, LAD and RCA no significant disease, RCA non-dominant), normal LV systolic function, normal LVEDP. She had R ankle surgery at [facility] in [facility] with Dr. Phillips 03/2022. Reports home BP [...] related. She had fasting blood work at [facility] on 05/25/18 which was all WNL except [...] >70%. Had normal [place] on 10/21/17. Had [employer] 7 day monitor 01/23/2018 which demonstrated normal [...] LV systolic function, normal LVEDP. Adan Dobbins [facility] [place] [facility] 01/05/2023 14:34:41 OBGyn Episode No OBEpisode recorded.
--- OUTSIDE RECORDS SUMMARY | 2025-08-12 14:56 | XMS_ITS | Clinical Summary ---
Author Organization [facility] [address] Address [address] [place] [address] Care Team Providers Care Tester Regulator Name Role Phone Roland Rojas DO Primary [...] region 05/17/2023 Coronary artery disease invo lving chitimacha coronary artery of chitimacha heart without angina pectoris 04/19/2023 Essential hypertension [...] (01/24/2024): Added automatically from request for surgery [id number] Nonspecific abnormal results of function study o [...] Description 06/14/2025 2:30 PM CDT Office Visit [facility] Cardiology at [address] [place] [address] Rhett Ramírez MD Coronary artery disease involving chitimacha coronary artery of chitimacha heart without angina pectoris (Primary Dx); Hyperlipidemia [...] on file 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
--- OUTSIDE RECORDS SUMMARY | 2025-08-12 14:56 | XMS_ITS | Data Portability ---
Author Organization [place] [facility], Main Office Address [address] [place] [address] Care Team Providers Care Yarding Engineer Name Role Phone EMERY RADHA Primary Care Provider HOPRADHA WAGGONER Referring Provider [phone] Assessment Encounter Date Assessment Date Assessment LastModified by Organization Details LastModified Time 02/23/2023 02/23/2023 WWE- BRISKET PULLER- [place] Mammo- 11/2021, ordered DEXA- 11/2021 Cscmaria teresa-ordered- Mil- family hx (grandmother) WEA- 02/23/23 Call office if worse, ER if life threatening illness RTC 6 months and PRN She voices understanding of plan and agrees She has previously been warned that if she continues to be rude and hateful to the staff, she will be discharged from my care. She voices understanding of this. [email or web address] Not available 02/23/2023 16:47:43 Plan of Treatment Reminders Order Date Submit Date Provider Last Modified By Organization Details Last Modified Time Details Appointments None recorded. Lab vitamin D, 25-hydroxy, total, serum 2022 023 [facility], [address], [place], [address], 3 04:44:38 Referral None recorded. Procedures colonoscopy screening (PROC) 2022 023 [email or web address] Tim Jaeger MD, [address], [address], [place], [address], 3 14:31:06 Surgeries None recorded. Imaging MAMMO, screening, bilateral 2022 023 [email or web address] [facility], [address], [place] [address], [place], [address], 4 15:56:08 Medication Orders None recorded. Patient TargetsNo targets recorded. Patient Instructions Encounter Date Encounter Id Patient Instructions Last Modified By Organization Details Last Modified Time 02/23/2023 [id number] INFLUENZA VACCIN E Next vaccination to be [...] Known Diabetic LIPID SCREENING Diagnosis of Hyperlipidemia [email or web address] Not available 02/23/2023 16:51:34 Reason for Referral None Reported. Results Created Date Observation Date Name Description Value Unit Range Abnormal Flag Note LastModifiedBy Organization Detail LastModifiedTime 11/08/1911/08/2022 US, renal No observ ation record ed. [id number] [facility] [address] [place], [address], 11/17/2022 20:40:02 11/11/1911/11/2022 CT, cervi daina spine , w/o contr ast No observ ation record ed. [id number] [facility] [address] [place], [address], 11/17/2022 20:40:02 11/11/19 23 11/11/2022 CT, lumba r spine , w/o contr ast No observ ation record ed. [id number] [facility] [address] [place], [address], 11/17/2022 20:40:02 11/26/19 23 11/24/2022 XR, lumba r spine No observ ation record ed. [address] [place], [address], 11/26/2022 17:06:46 11/26/19 23 11/24/2022 XR, cervi daina spine No observ ation record ed. [address] [place], [address], 11/26/2022 17:07:30 01/30/20 23 01/29/2023 XR, wrist No observ ation record ed. [address] [place], [address], 02/01/2023 11:13:37 07/22/2007/22/2023 CT, head + brain , w/o contr ast No observ ation record ed. [address] [place], [address], 07/28/2023 17:21:08 Result Notes None recorded. Problems Name Problem SNOMED Code Status Onset Date Resolution Date Notes Provider Name and Address Organization Details Recorded Time Suppurativ e arthritis 396946554 Active Not Available [facility] 3 20:39:10 Carpal tunnel syndrome of right wrist 2999529307794 08 Active 2021 Not Available [employer] 3 20:39:10 Mixed anxiety and depressive disorder 775225400 Active 2022 Radha Kaminski, ASIM-Rafael [address] [place] [address], [facility] [address], [place], [address] , [facility] [employer] [facility] 19:36:32 Type 2 diabetes mellitus without complicati on 331333513 Active 2022 MARTHA InfanteC [address] [employer], [address], [address] , [facility] [employer] [facility] 19:36:38 Neuropathy 141468650 Active 2022 ASIM Infante-C [address] [employer], [address], [address] , [facility] [employer] [facility] 19:36:54 Asthma 325825552 Active 2022 GISELE Infante [address] [employer], [address], [address] , [facility] [employer] [facility] 19:36:57 Allergic rhinitis 35899988 Active 2022 ASIM Infante-C [address] [employer], [address], [address] , [facility] [employer] [facility] 19:37:23 Cardiovasc ular stress test abnormal 233218556 Active 2022 ASIM Infante-C [address] [employer], [address], [address] , [facility] [employer] [facility] 19:38:27 Vitamin D deficiency 65238850 Active 2022 GISELE Infante [address] [employer], [address], [address] , [facility] [employer] [facility] 19:38:34 Fatigue 47827515 Active 2022 ASIM Infante-C [address] [employer], [address], [address] , [facility] [employer] [facility] 19:38:37 Chronic pain syndrome 130046105 Active 2022 Iliana kolb, [facility] [employer] [facility] 14:31:47 Problem Notes None recorded. Procedures Surgical History Date Name Laterality Status Provider Name and Address Organization Details Recorded Time Hysterectomy completed Not Available [facility] 11/17/2022 20:38:32 Neck Surgeries completed Not Available [facility] 11/17/2022 20:38:32 Back Surgeries completed Not Available [facility] 11/17/2022 20:38:32 Foot Surgery completed Not Available [facility] 11/17/2022 20:38:32 Knee Surgery completed Not Available [facility] 11/17/2022 20:38:32 Imaging Results None recorded. Procedure Notes None recorded. Medical Equipment None Reported. Allergies Allergen ID Allergen Name Allergen Category Reaction Reaction Severity Criticality Documentation Date Start Date Code Code System Note Provider Name and Address Organization Details Recorded Time 48485 Compazine medicatio n Not available Not available Not available 11/17/202224571 6 RxNorm (lock jaw) Not Available [facility] 20:39:59 Medications Name Sig Start Date Stop [...] cm 97 % 98 /min 98.1 [degF] 70642.4 7 g 128/76 mm[Hg] Not Available [facility] 3 20:38:57 Date Recorded Body height Body mass index (BMI) Body weight Body temperature Heart rate Oxygen saturation Systolic And Diastolic Provider Name and Address Organization Details Last Updated DateTime 3 170.18 cm 28.2 kg/m2 31326.6 3 g 98.4 [degF] 82 /min 98 % 118/74 mm[Hg] Melina James MA [place] [facility] [employer] [facility] 3 16:17:44 Date Recorded Body mass index (BMI) Body height Body weight Provider Name and Address Organization Details Last Updated DateTime 05/25/2022 34.5 kg/m2 170.18 cm 83596.32 g Not Available [facility] 11/17/2022 20:38:59 Date Recorded Body mass index (BMI) Body height Body weight Provider Name and Address Organization Details Last Updated DateTime 08/24/2022 33.2 kg/m2 170.18 cm 11457.58 g Not Available [facility] 11/17/2022 20:38:59 Date Recorded Body mass index (BMI) Body height Oxygen saturation Heart rate Body temperature Body weight Systolic And Diastolic Provider Name and Address Organization Details Last Updated DateTime 2 32.6 kg/m2 170.18 cm 97 % 98 /min 97.7 [degF] 52133.2 1 g 132/76 mm[Hg] Not Available [facility] 20:38:57 Social History Question Answer Notes LastModified by Organizat ion Details LastModified Time Tobacco Smoking Status Never Smoker Not Available [facility] 11/17/2022 20:38:28 Do You Wear A Helmet When Biking? No MIGRATION.85955 82556 Information not available 11/17/2022 What Is Your Level Of Caffeine Consumption? Moderate MIGRATION.21160 17999 Information not available 11/17/2022 In The 14 Days Before Symptom Onset, Have You Had Close Contact With A Laboratory-confir med COVID-19 While That Case Was Ill? No MIGRATION.73304 13136 Information not available 11/17/2022 In The 14 Days Before Symptom Onset, Have You Had Close Contact With A Person Who Is Under Investigation For COVID-19 While That Person Was Ill? No MIGRATION.85797 83594 Information not available 11/17/2022 What Type Of Diet Are You Following? REGULAR MIGRATION.31944 95597 Information not available 11/17/2022 Have There Been Any Changes To Your Family Or Social Situation? No MIGRATION.67587 49495 Information not available 11/17/2022 What Is The Fluoride Status Of Your Home? Unknown MIGRATION.52989 52392 Information not available 11/17/2022 Do You Use Insect Repellent Routinely? No MIGRATION.15678 12450 Information not available 11/17/2022 Where Do You Live? [place] MIGRATION.87243 05560 Information not available 11/17/2022 What Was The Date Of Your Most Recent Tobacco Screening? 02/23/2023 [email or web address] Information not available 02/23/2023 Do You Have Any Pets? Yes MIGRATION.68515 27658 Information not available 11/17/2022 Do You Have Smoke And Carbon Monoxide Detectors In Your Home? Yes MIGRATION.07635 48601 Information not available 11/17/2022 Are You Passively Exposed To Smoke? No MIGRATION.04829 45369 Information not available 11/17/2022 Are There Any Smokers In Your House? No MIGRATION.51729 80994 Information not available 11/17/2022 Do You Use Sunscreen Routinely? No MIGRATION.43741 38510 Information not available 11/17/2022 Have You Recently Traveled Abroad? No MIGRATION.93701 64329 Information not available 11/17/2022 Do You Have Any Dietary Restrictions? No MIGRATION.18195 51502 Information not available 11/17/2022 Sex: Unknown Functional Status Question Answer Note LastModified by Organizat ion Details LastModified Time Do you or have you ever used any other forms of tobacco or nicotine? No MIGRATION.[id number] 6 Information not available 11/17/2022 What is your level of alcohol consumption? None MIGRATION.073825607 6 Information not available 11/17/2022 What is your exercise level? Moderate MIGRATION.053704098 6 Information not available 11/17/2022 Mental Status Question Answer Note LastModified by Organizat ion Details LastModified Time Do you feel stressed (tense, restless, nervous, or anxious, or unable to sleep at night)? UM1365-1 MIGRATION.652640512 6 Information not available 11/17/2022 Family History Relationship Description Onset Age of this Age Resolved Age Notes LastModified by Organization Details LastModified Time Mother Family history of malignant neoplasm MIGRATION.[id number] Not available 11/17/2022 20:38:33 Medical History Condition Response DIABETES, TYPE Y Gynecological HistoryNo gynecological history recorded. Obstetrics History GPAL:G 0 P 0 0 0 0 Past Encounters Encounter ID Performer Location Encounter Start Date Encounter Closed Date Diagnosis/Indication Diagnosis SNOMED-CT Code Diagnosis ICD10 Code Diagnosis IMO Codes Diagnosis Note [id number] MD YODIT Angulo[facility] [place] [address] [facility] [place] [address] 12/02/2021 00:00:00 12/02/2021 17:07:21 [id number] MD YODIT Angulo[facility] [place] [address] [facility] y , [place] [address] 12/30/2021 00:00:00 12/30/2021 14:49:27 [id number] Edward Osborne MD [facility] [place] [address] [place] [address] 01/12/2022 00:00:00 01/12/2022 15:29:24 [id number] Isabella shaw MD [facility] Internal [facility] [place] [address] [place] [address] y , [place] [address] 01/20/2022 00:00:00 01/20/2022 14:52:49 [id number] [facility] [place] [address] [facility] [address] , [place] [address] 02/03/2022 00:00:00 02/03/2022 15:30:47 [id number] Isabella shaw MD [facility] Internal [facility] [place] [address] [place] [address] y , [place] [address] 03/31/2022 00:00:00 03/31/2022 16:28:57 [id number] Edward Osborne MD [facility] [place] [address] [place] [address] 04/09/2022 00:00:00 04/09/2022 13:24:19 [id number] Edward Osborne MD [facility] [place] [address] [place] [address] 04/27/2022 00:00:00 04/27/2022 16:52:36 [id number] Edward Osborne MD [facility] [place] [address] [place] [address] 05/25/2022 00:00:00 05/25/2022 16:49:47 [id number] Edward Osborne MD [facility] [place] [address] [place] [address] 08/24/2022 00:00:00 08/24/2022 17:22:21 [id number] Isabella shaw MD [facility] Internal Med [place] [address] [place] [address] [place] [address] 08/25/2022 00:00:00 08/25/2022 16:57:02 [id number] Isabella shaw MD [facility] Internal Med [facility] [address] [facility] [place] [address] 11/01/2022 00:00:00 11/01/2022 16:01:52 [id number] Isabella shaw MD [facility] Internal Med [place] [address] [place] [address] [place] [address] 02/23/2023 16:02:31 02/23/2023 16:32:14 Mixed anxiety and depressive disorder 239522797 F41.8 now following psychiatry - Dr. Rollins's officeon wellbutrin from [place] office if any change in mood or behaviorSh e is able to commit to safety todayconti nue counseling Type 2 wendy betes mellitus without complication 607218709 E11.9 on Trulicity, glimiperid efollows endocrinol ogy- Dr. Garcia in [facility] eye exam- 11/2021- encouraged her to schedule pt is aware of side effects, risks, benefitspt denies any personal or family history of MEN II or MTC, denies and personal history of pancreatit ispt knows to call the office if any severe n/v or abdominal pain Neuropathy 254081377 G62 .9 follows podiatry- Dr. Harley Gipson gabapentin from [facility] Asthma 144691809 J45.90 9 on proair prnon Symbicort, she is worse at effects, risks, benefitssh e is aware to rinse and spit after use Carpal julita kendra syndrome of right wrist 6639679601 03614 G56.01 now following hand surgery- Dr. Osborne Allergic rhinitis 367843 04 J30.9 on flonase and singulairc all office if any change in mood or behavior Body mass index 30+ - obesity 523152289 Z68.31 recommend healthy, well balanced mealsfocus on lean meats, fresh vegetables , fresh fruits, whole grainsredu ce fast/proce ssed foods or eating out to no more than 1-2 times per weekaim to get 30 min of exercise most days of the week- walking is a great choice Cardiovasc ular stress test abnormal 833228584 R94.39 cardiac cath was ok per cardiologi st note Vitamin D deficiency 347 11683 E55.9 hold vitamin d x 4 weeks and then repeat levelnever got repeat level- encouraged her to get Fatigue 44021889 R53.83 no explanatio n for fatigue in labs, recommend sleep study- she declines Screening mammography 24 080858 Z12.31 Family his tory of cancer of colon 913078831 Z80.0 Adult heal th examination 351759969 Z00.01 Depression screening 171 610647 Z13.31 Body mass index 25-29 - overweight 272518060 Z68.28 recommend healthy, well balanced mealsfocus on [...] Guo Member ID Guarantor Name 02/20/2023 1 COUNT INCLUDES THE [facility] [id number] Niles Villafana Lang [id number] 1 Niles Croft Notes Date Note Type Note Provider Name and Address Organization Details Recorded Time 02/23/2023 text/html Niles presents today for follow up. She is also due for annual wellness exam. she reports she has had a ne the foot surgery with her psychologist experimental. She follows up again in a couple weeks. She is just on a regular tennis shoe and not in a boot at this time. She continues to follow Endocrinology for her diabetes. They order all of her labs. She also continues to follow with her icu nurse regularly. She still refuses her sleep study. [...] due for mammogram. Radha Kaminski, ASIM-C [address] [facility], [facility] [address], [place], [address], [place] [facility] 02/23/2023 16:52:24 OBGyn Episode No OBEpisode recorded.
--- OUTSIDE RECORDS SUMMARY | 2025-08-12 14:56 | XMS_ITS | Clinical Summary ---
Author Organization [facility] Address [address] [facility] [place] [address] Care Team Providers Care Thread Puller Name Role Phone Radha Kaminski MYRON-RESEARCH HYDRAULIC ENGINEER Primary Care Provider [phone] Harmony Mcrae MD Unavailable Source Comments [facility],non-owned Affiliates and Associated Physician Practices is amultiple site organization consisting of ambulatory clinics and hospital sitesin [place], [place], [place] and [place]. This disclosure is being madepursuant to the Care Everywhere program and may not contain all information available regarding this patient. Last updated 18.[facility] Allergies Active Allergy Reactions Criticality Noted [...] fluticasone propionate (FLONASE) 50 MCG/ACT nasal spray [place] 2 (two) sprays into each nostril once daily Active blood glucose ([place] Medical Research FoundationTOUCH ULTRA) test strip USE TO TEST THREE TIMES A DAY 1 Active estradiol (ESTRACE) 2 MG tablet Take 1 (one) tablet by mouth every 24 hours Active Multiple Vitamins-Online Marketing Director als (MULTI VITAMIN/MINERA LS) TABS Take 1 (one) tablet by mouth once daily Active [place]-3 Fatty Acids (FISH OIL) 1000 MG capsule Take 1 (one) capsule by mouth once daily Active Cholecalcifero l 1.25 MG (72784 UT) Take 1 capsule by mouth every [...] naloxone HCl (Narcan) 4 MG/0.1ML nasal spray [place] 1 (one) spray into the nose Active [...] day by topical route. Active HYDROcodone-ac etaminophen ([place]) 5-325 MG tablet Take 1 (one) tablet by mouth two times daily at 4am and 4pm Active indomethacin (Indocin) 50 MG capsule TAKE 1 CAPSULE BY MOUTH THREE TIMES A DAY ADMINISTER WITH FOOD OR MILK Active mupirocin (Bactroban) 2 % ointment 1 APPLIC TOPICALLY TWICE A DAY Active nystatin (Mycostatin) 095940 UNIT/ML suspension Take 5 mL 4 times [...] on file Legal Sex Female 5:06 PM MOBILE GAME ENGINEER Gender Identity Not on file Sexual Orientation Not on file Last Filed Vital Signs Vital Sign Reading Time Taken Comments Blood Pressure 122/68 10/06/2023 2:03 PM MOBILE GAME ENGINEER Pulse 79 10/06/2023 2:03 PM MOBILE GAME ENGINEER Temperature 36.6 C (97.9 F) 01/07/2022 2:03 PM CDT Respiratory Rate 16 08/02/2023 2:35 PM MOBILE GAME ENGINEER Oxygen Saturation 97% 08/02/2023 2:35 PM MOBILE GAME ENGINEER Inhaled Oxygen Concentration - - Weight 93.9 kg (207 lb) 10/06/2023 2:03 PM MOBILE GAME ENGINEER Height 170.2 cm (5' 7) 10/06/2023 2:03 PM MOBILE GAME ENGINEER Body Mass Index 32.42 10/06/2023 2:03 PM MOBILE GAME ENGINEER Plan of Treatment Health Maintenance Due Date [...] COMPREHENSIVE METABOLIC PANEL Routine 08/02/2023 3:29 PM MOBILE GAME ENGINEER Arthralgia, unspecified joint HEPATITIS SCREEN ACUTE ([facility]) Routine 08/02/2023 3:28 PM MOBILE GAME ENGINEER Arthralgia, unspecified joint from Last 3 Months or Most Recently Relevant to Health Maintenance Results * (ABNORMAL) COMPREHENSIVE METABOLIC PANEL (08/02/2023 3:29 PM MOBILE GAME ENGINEER) Glucose 95 70 - 99 mg/dL [facility] [...] BLOOD SPECIMEN / Unknown 08/02/2023 3:29 PM MOBILE GAME ENGINEER 08/02/2023 Narrative Resulting Agency Comment Lab Testing performed at: [facility] [place] [id number] [facility] [id number] Harmony Mcrae MD LAB - CHEMISTRY ORDERABLES Final Result [facility] INSURANCE BILL [address] [place] [address] * HEPATITIS SCREEN ACUTE ([facility]) (08/02/2023 3:28 PM MOBILE GAME ENGINEER) Hepatitis A Virus Antibody IgM Negative Negative [facility] INSURANCE BILL Hepatitis B Virus Surface Antigen Negative Negative [facility] INSURANCE BILL Hepatitis B Core Virus Antibody IgM Negative Negative [facility] INSURANCE BILL Hepatitis C Antibody Non Reactive Non Reactive [facility] INSURANCE BILL Blood BLOOD SPECIMEN / Unknown 08/02/2023 3:28 PM MOBILE GAME ENGINEER 08/02/2023 Narrative Resulting Agency Comment Lab Testing performed at: [facility] [id number] Harmony Mcrae MD LAB - CHEMISTRY ORDERABLES Final Result Performing Organization Address City/[facility] [address]/[facility] Co de Phone Number [facility] INSURANCE BILL [address] [place] [address] from Last 3 Months or Most Recently Relevant to Health Maintenance Insurance [facility] Address: [facility] [id number] [place] [address] Care Teams Thread Puller Relationship Specialty Start Date End Date Radha Kaminski APRN-SCOTT [address] [facility] [address] [place] [address] PCP - General Nurse Practitioner Family 12/03/21 [place] [address] [address] [place] [address] Rheumatology 12/03/21
== END 2025-08-12 12:53 | disposition home or self-care (01) ==
LOC: CHSLAB 12:55
PROVIDERS: PCP Family Medicine; Visit Provider Orthopaedic Surgery
DX: M00.9 Pyogenic arthritis, unspecified (principal)
CPT/HCPCS: 36415; 80048; 80202; 85025; 85652; 86140